=== PATIENT | female | born 1960 | race Caucasian/White ===

== ENCOUNTER 2017-03-01 15:39 | Emergency (ER) | payer OTHER, SELFPAY | END 2017-03-01 17:10 | disposition home or self-care (01) | PROVIDERS: Emergency Provider Emergency Medicine; Family Provider Nurse Practitioner Family; Visit Provider Emergency Medicine | DX: M54.31 Sciatica, right side (principal); E11.9 Type 2 diabetes mellitus without complications; F17.210 Nicotine dependence, cigarettes, uncomplicated; I25.10 Atherosclerotic heart disease of native coronary artery without angina pectoris; I25.2 Old myocardial infarction; I11.0 Hypertensive heart disease with heart failure; I50.9 Heart failure, unspecified; E78.5 Hyperlipidemia, unspecified; J45.909 Unspecified asthma, uncomplicated; Z85.3 Personal history of malignant neoplasm of breast; Z90.11 Acquired absence of right breast and nipple; Z79.84 Long term (current) use of oral hypoglycemic drugs; Z79.02 Long term (current) use of antithrombotics/antiplatelets; Z79.82 Long term (current) use of aspirin; Z79.899 Other long term (current) drug therapy; Z88.5 Allergy status to narcotic agent | CPT/HCPCS: 96372; 99283; J2405 ==

== ENCOUNTER → 2017-04-11 14:38 | Outpatient (CLI) | payer OTHER, SELFPAY ==
--- NOTE | 2017-04-11 14:42 | XR_ITS ---
XR hip RT 2-3V w/pelvis HISTORY: Extreme right hip pain ITS.REASON: right hip pain ORDERING PHYSICIAN: Estrada Woods MD PATIENT AGE: 56 years COMPARISON: To 117 FINDINGS: No fracture or dislocation. There are mild osteoarthritic changes of the right hip with osteophyte formation along the acetabular region. No lytic or blastic change. No significant change from the previous exam. IMPRESSION: Osteoarthritis, no significant change
== END ==
PROVIDERS: PCP Physician Assistant; Visit Provider Orthopaedic Surgery
DX: M25.551 Pain in right hip (principal)
CPT/HCPCS: 73502

== ENCOUNTER 2017-04-21 14:32 | Emergency (ER) | payer OTHER, SELFPAY ==
[2017-04-21 14:33] VITALS: BP 142/90; PULSE 100; RESP 20; TEMP 36.6; O2SAT 90; BMI 33.9
--- NOTE | 2017-04-21 14:51 | XR_ITS ---
XR chest 2V Ordering Physician: Justin Flores MD Patient Age: 56 years: Female HISTORY: ITS.REASON: cough; SOA Cough short of breath smoker right mastectomy TECHNIQUE: PA and lateral chest COMPARISON :PA and lateral chest 03/15/2015 FINDINGS Lungs clear with nothing definitely acute. The more lucent right chest from right mastectomy noted with postsurgical changes at right axillary region associated. Lateral view shows mild hyperexpansion is slight flattening of the diaphragm. Minor chronic changes noted. No active disease. Heart, marion and mediastinal structures satisfactory. No pleural effusion. Chest wall and T-spine unremarkable. IMPRESSION: Stable chest nothing definitely acute
[2017-04-21 14:57] VITALS: PULSE 85
[2017-04-21 15:11] LABS: Basophils % 0.4 % (0.1-2.0); Eosinophils # 0.1 K/mm3 (0.0-0.4); Eosinophils % 0.7 % (0.1-12.0); Hematocrit 49.6 % (37.0-47.0); Hemoglobin 15.7 g/dL (12.2-16.2); Lymphocytes # 1.9 K/mm3 (0.7-4.5); Lymphocytes % 15.9 K/mm3 (10-50); Mean Corpuscular HGB Conc 31.6 g/dL (31.8-35.4); Mean Corpuscular Hemoglobin 28.1 pg (27.0-31.2); Monocytes # 0.6 K/mm3 (0.1-1.0); Monocytes % 5.2 % (1.7-9.3); Neutrophils # 9.3 K/mm3 (1.8-7.8); Neutrophils % 77.9 % (37.0-80.0); Platelet Count 315 K/mm3 (142-424); Red Blood Count 5.58 M/mm3 (4.20-5.40); Red Cell Distribution Width 14.5 % (11.5-17.5)
[2017-04-21 15:24] LABS: Alanine Aminotransferase 23 U/L (12-78); Albumin Level 3.3 gm/dL (3.4-5.0); Albumin/Globulin Ratio 0.8 (1.1-1.8); Alkaline Phosphatase 143 U/L (46-116); Anion Gap 11.6 mEq/L (5-15); Aspartate Amino Transferase 9 U/L (15-37); Bilirubin,Total 0.6 mg/dL (0.2-1.0); Blood Urea Nitrogen 22 mg/dL (7-18); Calcium 8.8 mg/dL (8.5-10.1); Carbon Dioxide 29 mmol/L (21.0-32.0); Chloride 98 mmol/L (98-107); Creatinine Clearance Estimated 71 mL/min (0-300); Creatinine,Serum 1.29 mg/dL (0.55-1.02); Estimated Glomerular Filt Rate 42 ml/min (>60); GFR (African American) 51 ML/MIN (>60); Globulin 4.2 gm/dl (1.3-3.2); Potassium 3.6 mmoL/L (3.5-5.1); Sodium 135 mmol/L (136-145); Total Protein,Serum 7.5 gm/dL (6.4-8.2)
[2017-04-21 15:39] LABS: Lactic Acid 2.6 mmol/L (0.4-2.0)
[2017-04-21 15:40] LABS: Glucose 441 mg/dL (74-106)
[2017-04-21 15:54] LABS: Reflex Lactic Add Lactic Reflex
--- NOTE | 2017-04-21 16:43 | HMH.EDSOB ---
ED Disposition Clinical Impression: Acute exacerbation of chronic obstructive airways disease, Renal insufficiency Diabetes mellitus Qualifiers: Diabetes mellitus type: type 2 Diabetes mellitus complication status: with unspecified complications Diabetes mellitus senior care insulin use: unspecified senior care insulin use status Qualified Code(s): E11.8 - Type 2 diabetes mellitus with unspecified complications Disposition: Home, Self-Care Condition on Discharge: Good Instructions: DI for Chronic Obstructive Pulmonary Disease Additional Instructions: call pcp in am about glucose Prescriptions: cephALEXin [Keflex 500mg Cap] 500 mg PO Q6H #30 cap Referrals: Shanel Odonnell PA [Primary Care Provider] - - Critical Care Critical Care Time: No Attestation: On 04/21/17, the high probability of a clinically significant, sudden or life threatening deterioration of the following system(s) required my full and direct attention, intervention and personal management. The time I documented below is in addition to time spent performing reported procedures but includes the following listed in this critical care notation. Medical Decision Making - Medical Records Medical records reviewed: Yes: I reviewed the patient's medical records. Vital Signs: 04/21/17 14:33 04/21/17 14:57 Temperature 97.9 F Temperature Source Oral Pulse Rate 85 Pulse Rate [Right Brachial] 100 H Respiratory Rate 20 Blood Pressure [Right Arm] 142/90 Blood Pressure Mean [Right Arm] 107 Blood Pressure Position [Right Arm] Sitting 02 Sat by Pulse Oximetry 90 L Oxygen Delivery Method Room Air - Lab Data Lab results reviewed: Yes: I reviewed the patient's lab results. Lab Results 04/21/17 14:55: WBC 12.0 H, RBC 5.58 H, Hgb 15.7, Hct 49.6 H, MCV 89.0, MCH 28.1, MCHC 31.6 L, RDW 14.5, Plt Count 315, MPV 8.0, Neut % (Auto) 77.9, Lymph % (Auto) 15.9, [place] % (Auto) 5.2, Eos % (Auto) 0.7, Baso % (Auto) 0.4, Neut # (Auto) 9.3 H, Lymph # (Auto) 1.9, [place] # (Auto) 0.6, Eos # (Auto) 0.1, Baso # (Auto) 0.0 04/21/17 14:55: Sodium 135 L, Potassium 3.6, Chloride 98, Carbon Dioxide 29, Anion Gap 11.6, BUN 22 H, Creatinine 1.29 H, Estimated Creat Clear 71, Estimated GFR 42 L, Est GFR ( Amer) 51 L, Glucose 441 H*, Calcium 8.8, Total Bilirubin 0.6, AST 9 L, ALT 23, Alkaline Phosphatase 143 H, Total Protein 7.5, Albumin 3.3 L, Globulin 4.2 H, Albumin/Globulin Ratio 0.8 L 04/21/17 14:55: Lactic Acid 2.6 H 04/21/17 14:55: Influenza Type A Ag Negative, Influenza Type B Ag Negative 04/21/17 14:55: Troponin I < 0.02 04/21/17 16:15: Lactic Acid Fup @ 4Hr 1.9 Result diagrams: 04/21/17 14:55 04/21/17 14:55 Orders (Tests/Meds): ED MEDICATIONS Discontinued Medications Generic Name Dose Route Start Last Admin Trade Name Freq PRN Reason Stop Dose Admin Albuterol/Ipratropium 3 ml 04/21/17 14:51 04/21/17 14:55 Duoneb 3ml Neb IH 04/21/17 14:52 3 ml ONCE ONE Administration Ceftriaxone Sodium 1 gm/ 50 mls @ 100 mls/hr 04/21/17 16:45 04/21/17 16:52 Sodium Chloride IV 04/21/17 17:14 100 mls/hr ONCE ONE Administration Methylprednisolone Sodium Succinate 125 mg 04/21/17 16:45 04/21/17 16:51 Solu-Medrol 125mg/2ml Vial IV 04/21/17 16:46 125 mg ONCE ONE Administration ORDERS Category Date Time Status Blood Culture Stat Micro 04/21/17 14:55 Received Sputum Culture & Gram Stain Stat Micro 04/21/17 15:00 Results - Radiology Data #1 Image(s): Chest Image Reviewed: Yes I reviewed the patient's radiology image Preliminary Findings: Normal/NAD - Gianfranco Inquiry Pt receiving controlled substance: No Resp/SOB HPI - General Chief Complaint: Shortness of Breath/Dyspnea Stated Complaint: soa weak Time Seen by Provider: 04/21/17 16:43 Mode of Arrival: Ambulatory Source of Information: Patient, Medical Record Limitations: No Limitations Description of Symptoms (Recalled from ER Triage Doc. by RN): Pt leanna
[2017-04-21 17:10] LABS: Troponin I < 0.02 ng/ml (0.00-0.06)
[2017-04-21 17:33] VITALS: BP 148/106; PULSE 127; O2SAT 93
[2017-04-21 18:06] VITALS: BP 000/00; PULSE 154; RESP 42; TEMP 37.2; O2SAT 92
== END 2017-04-21 18:21 | disposition home or self-care (01) ==
PROVIDERS: Emergency Provider Emergency Medicine; Family Provider Family Medicine; PCP Physician Assistant
DX: J44.1 Chronic obstructive pulmonary disease with (acute) exacerbation (principal); E11.8 Type 2 diabetes mellitus with unspecified complications; N28.9 Disorder of kidney and ureter, unspecified; I10 Essential (primary) hypertension; F17.210 Nicotine dependence, cigarettes, uncomplicated; K21.9 Gastro-esophageal reflux disease without esophagitis; Z88.6 Allergy status to analgesic agent; Z79.84 Long term (current) use of oral hypoglycemic drugs
CPT/HCPCS: 36415; 71046; 80053; 83605; 84484; 85025; 87040; 87070; 87077; 87184; 87186; 87205; 87275; 87276; 96365; 96375; 99284

== ENCOUNTER → 2017-05-08 14:35 | Outpatient (REF) | payer OTHER, SELFPAY ==
[2017-05-08 19:09] LABS: Anion Gap 10.4 mEq/L (5-15); Blood Urea Nitrogen 17 mg/dL (7-18); Carbon Dioxide 32 mmol/L (21.0-32.0); Chloride 101 mmol/L (98-107); Creatinine,Serum 1.22 mg/dL (0.55-1.02); Estimated Glomerular Filt Rate 45 ml/min (>60); GFR (African American) 55 ML/MIN (>60); Glucose 272 mg/dL (74-106); Potassium 4.4 mmoL/L (3.5-5.1); Sodium 139 mmol/L (136-145)
[2017-05-08 19:14] LABS: Hemoglobin A1C 11.4 % (0.0-7.0)
== END ==
LOC: LAB 14:35
PROVIDERS: Visit Provider Emergency Medicine
DX: E11.9 Type 2 diabetes mellitus without complications (principal)
CPT/HCPCS: 80048; 83036

== ENCOUNTER 2017-05-31 21:48 | Inpatient (IN) | payer OTHER, SELFPAY ==
[2017-05-31 21:53] VITALS: BP 137/82; PULSE 136; RESP 22; TEMP 36.7; O2SAT 93; BMI 33.9
--- NOTE | 2017-05-31 22:02 | XR_ITS ---
XR chest 2V COMPARISON: PA and lateral chest 04/21/2017 HISTORY: Shortness of breath TECHNIQUE: PA and lateral chest FINDINGS: The lung henley are fairly well-expanded. There is diffuse vascular congestion with prominence of the upper lobe vessels. There is been interval increase in size of the cardiac silhouette from the film in April. There is no definite infiltrate and is no pleural fluid. IMPRESSION: Mild generalized cardio megaly with prominent vascular congestion and consistent with congestive heart failure
--- NOTE | 2017-05-31 22:07 | HMH.EDGENADL ---
ED Disposition Clinical Impression: Acute exacerbation of chronic obstructive airways disease Disposition: Admitted as Observation Condition on Discharge: Fair - Critical Care Critical Care Time: Yes Attestation: On , the high probability of a clinically significant, sudden or life threatening deterioration of the following system(s) required my full and direct attention, intervention and personal management. The time I documented below is in addition to time spent performing reported procedures but includes the following listed in this critical care notation. Total Critical Care Time: 40 Vital system(s) involved:: Circulatory Failure My critical care processes included: Assessment & monitoring of V/S, Initial and Re-exams, Data Review/Interpretation, Coordinating Care, Medication Orders and management, Documentation Medical Decision Making - Gianfranco Inquiry Pt receiving controlled substance: No Vital Signs: 05/31/17 21:53 05/31/17 22:19 05/31/17 23:30 Temperature 98.1 F Temperature Source Oral Pulse Rate Pulse Rate [Right Radial] 136 H 120 H 122 H Respiratory Rate 22 Blood Pressure Blood Pressure [Right Arm] 137/82 131/78 163/106 Blood Pressure Mean [Right Arm] 100 95 125 Blood Pressure Source [Right Arm] Automatic Cuff Automatic Cuff Blood Pressure Position Blood Pressure Position [Right Arm] Supine Supine 02 Sat by Pulse Oximetry 93 L 96 94 L Oxygen Delivery Method Room Air 06/01/17 00:00 06/01/17 00:10 06/01/17 00:28 Temperature 98.1 F Temperature Source Oral Pulse Rate 116 H Pulse Rate [Right Radial] 123 H 121 H Respiratory Rate 22 Blood Pressure 122/91 Blood Pressure [Right Arm] 170/125 129/67 Blood Pressure Mean [Right Arm] 140 87 Blood Pressure Source [Right Arm] Automatic Cuff Automatic Cuff Blood Pressure Position Sitting Blood Pressure Position [Right Arm] Supine Sitting 02 Sat by Pulse Oximetry 96 98 Oxygen Delivery Method Room Air Room Air - Lab Data Lab Results 05/31/17 22:10: B-Natriuretic Peptide 250 H 05/31/17 22:20: WBC 13.3 H, RBC 5.00, Hgb 14.1, Hct 44.2, MCV 88.4, MCH 28.3, MCHC 32.0, RDW 15.1, Plt Count 314, MPV 7.5, Neut % (Auto) 75.0, Lymph % (Auto) 18.6, [place] % (Auto) 5.0, Eos % (Auto) 1.0, Baso % (Auto) 0.5, Neut # (Auto) 10.0 H, Lymph # (Auto) 2.5, [place] # (Auto) 0.7, Eos # (Auto) 0.1, Baso # (Auto) 0.1 05/31/17 22:20: Sodium 138, Potassium 3.6, Chloride 97 L, Carbon Dioxide 30, Anion Gap 14.6, BUN 16, Creatinine 1.32 H, Estimated Creat Clear 70, Estimated GFR 41 L, Est GFR ( Amer) 50 L, Glucose 231 H, Calcium 8.9, Total Bilirubin 0.4, AST 12 L, ALT 27, Alkaline Phosphatase 133 H, Total Creatine Kinase 118, CK-MB (CK-2) 2.0, CK-MB (CK-2) Rel Index 1.7, Troponin I < 0.02, Total Protein 7.6, Albumin 3.2 L, Globulin 4.4 H, Albumin/Globulin Ratio 0.7 L 05/31/17 22:20: Lactic Acid 2.5 H Result diagrams: 05/31/17 22:20 05/31/17 22:20 Orders (Tests/Meds): ED MEDICATIONS Generic Name Dose Route Start Last Admin Trade Name Freq PRN Reason Stop Dose Admin Acetaminophen 650 mg 06/01/17 00:48 06/01/17 01:37 Acetaminophen 325mg Tab PO 07/01/17 00:47 650 mg Q4HP PRN Administration As Needed for Fever or Pain Albuterol Sulfate puffs 06/01/17 01:00 Proventil-Hfa 90mcg/Puff Inhaler 07/01/17 00:59 Q6H [facility] Albuterol/Ipratropium 3 ml 06/01/17 06:00 Duoneb 3ml Neb 07/01/17 05:59 QIDRT [facility] Amlodipine Besylate 10 mg 06/01/17 01:00 Norvasc 10mg Tablet PO 07/01/17 00:59 QDAY [facility] Aspirin 81 mg 06/01/17 01:00 Aspirin 81mg Enteric Coated Tablet PO 07/01/17 00:59 QDAY [facility] Clopidogrel Bisulfate 75 mg 06/01/17 01:00 Plavix 75mg Tablet PO 07/01/17 00:59 ONCE [facility] Cyclobenzaprine HCl 10 mg 06/01/17 01:00 06/01/17 01:37 Flexeril 10mg Tablet PO 07/01/17 00:59 10 mg Q8H ANCA Administration Furosemide 40 mg 06/01/17 01:00 06/01/17 01:37
[2017-05-31 22:19] VITALS: BP 131/78; PULSE 120; O2SAT 96
[2017-05-31 22:35] LABS: Basophils # 0.1 K/mm3 (0-0.2); Basophils % 0.5 % (0.1-2.0); Eosinophils # 0.1 K/mm3 (0.0-0.4); Hematocrit 44.2 % (37.0-47.0); Hemoglobin 14.1 g/dL (12.2-16.2); Lymphocytes # 2.5 K/mm3 (0.7-4.5); Lymphocytes % 18.6 K/mm3 (10-50); Mean Corpuscular Hemoglobin 28.3 pg (27.0-31.2); Mean Corpuscular Volume 88.4 fl (81-99); Mean Platelet Volume 7.5 fl (7.4-10.4); Monocytes # 0.7 K/mm3 (0.1-1.0); Platelet Count 314 K/mm3 (142-424); Red Cell Distribution Width 15.1 % (11.5-17.5); White Blood Count 13.3 K/mm3 (4.8-10.8)
[2017-05-31 22:51] LABS: Lactic Acid 2.5 mmol/L (0.4-2.0)
[2017-05-31 23:05] LABS: Alanine Aminotransferase 27 U/L (12-78); Albumin Level 3.2 gm/dL (3.4-5.0); Albumin/Globulin Ratio 0.7 (1.1-1.8); Alkaline Phosphatase 133 U/L (46-116); Anion Gap 14.6 mEq/L (5-15); Aspartate Amino Transferase 12 U/L (15-37); Bilirubin,Total 0.4 mg/dL (0.2-1.0); Blood Urea Nitrogen 16 mg/dL (7-18); CKMB Relative Index 1.7 U/L (0-4.0); Calcium 8.9 mg/dL (8.5-10.1); Carbon Dioxide 30 mmol/L (21.0-32.0); Chloride 97 mmol/L (98-107); Creatine Kinase 118 U/L (26-192); Creatinine Clearance Estimated 70 mL/min (0-300); Creatinine,Serum 1.32 mg/dL (0.55-1.02); Estimated Glomerular Filt Rate 41 ml/min (>60); GFR (African American) 50 ML/MIN (>60); Globulin 4.4 gm/dl (1.3-3.2); Glucose 231 mg/dL (74-106); Potassium 3.6 mmoL/L (3.5-5.1); Sodium 138 mmol/L (136-145); Total Protein,Serum 7.6 gm/dL (6.4-8.2); Troponin I < 0.02 ng/ml (0.00-0.06)
[2017-05-31 23:30] VITALS: BP 163/106; PULSE 122; O2SAT 94
[2017-06-01] VITALS (27 sets, daily range): BP systolic 107–170; BP diastolic 49–125; PULSE 72–128; RESP 15–23; TEMP 36.4–36.9; O2SAT 88–100; BMI 36.3
--- NOTE | 2017-06-01 01:38 | PC.NURSE ---
PT STATED SHE HAD ALREADY TAKEN HER PLAVIX TODAY BUT HAD NOT TAKEN HER SECOND DOSE OF LASIX.
[2017-06-01 02:30] LABS: Reflex Lactic Add Lactic Reflex
[2017-06-01 03:23] LABS: Lactic Acid Follow Up (RFLX 1) 2.7 (0.4-2.0)
--- NOTE | 2017-06-01 03:59 | PC.NURSE ---
PT IS A&OX3. SHE HAS A RASH ON HER LEFT BREAST. RIGHT LIMB ALERT. SHE REPORTED THAT SHE IS SUPPOSED TO WEAR A CPAP AT NIGHT BUT HAS NOT BEEN WEARING IT AT HOME FOR A COUPLE WEEKS DUE TO BEING SICK. HER O2 DROPPED TO 86% RA WHILE SLEEPING AND SHE WAS PLACED ON 2LPM N/C. SHE REPORTS A PRODUCTIVE COUGH WITH SPUTUM THAT VARIES IN COLOR BETWEEN YELLOW, BROWN, AND CLEAR. NO SPUTUM PRODUCTION NOTED SINCE ADMISSION TO THE FLOOR. RUE WITH 2+ EDEMA. PT REPORTS A HISTORY OF LYMPHEDEMA. SHE HAS BEEN AMBULATING TO THE BATHROOM WITH ASSIST X1. REPORTS THAT SHE USES A CANE OR WALKER TO AMBULATE AT HOME. AFIB ON TELEMETRY. SHE HAS RECEIVED PRN TYLENOL FOR A HEADACHE.
[2017-06-01 04:55] LABS: Reflex Lactic (2 hrs) Add Lactic Reflex
--- NOTE | 2017-06-01 05:43 | PC.NURSE ---
PT REFUSED 2ND LACTIC DRAW. EDUCATED ON IMPORTANCE. CONTINUED TO REFUSE.
[2017-06-01 06:29] LABS: POC Glucose,Bedside 428 mg/dL (70-110)
--- NOTE | 2017-06-01 07:36 | PC.NURSE ---
REPORT GIVEN TO Himanshu GARG W/C
[2017-06-01 12:17] LABS: POC Glucose,Bedside 407 mg/dL (70-110)
--- NOTE | 2017-06-01 13:43 | HMH.PHAVTE ---
[facility] Pharmacy VTE Monitoring - Patient Demographics Admission date: 06/01/17 Report Date: 06/01/17 Time: 13:43 Allergies/Adverse Reactions: Patient Allergies oxycodone [From PERCOCET] Allergy (Unknown, Verified 05/20/17 13:30) Height: 1.68 m Weight: 102.172 kg Patient Problems: Current Active Problems Acute exacerbation of chronic obstructive airways disease (Acute) - VTE Risk Labs: VTE Related Lab Results Hgb 14.1 g/dL (12.2-16.2) 05/31/17 22:20 Hct 44.2 % (37.0-47.0) 05/31/17 22:20 Plt Count 314 K/mm3 (142-424) 05/31/17 22:20 BUN 16 mg/dL (7-18) 05/31/17 22:20 Creatinine 1.32 mg/dL (0.55-1.02) H 05/31/17 22:20 Estimated Creat Clear 70 mL/min (0-300) 05/31/17 22:20 Was VTE Risk Assessment Performed: Yes VTE Score: 9 VTE Risk Level: Moderate Risk - Prophylaxis Types of VTE Prophylaxis: TEDS Knee High Location of Applied Device: Bilateral Lower Extremeties - VTE Diagnosis Confirmed Comment: YANG DEVINE
--- NOTE | 2017-06-01 14:52 | HMH.HP ---
*Admission Date: 06/01/17 *Chief complaint: sob *History of present illness: 56-year-old female presented to the ER with a 2 day history of shortness of breath, cough productive with yellow sputum, head congestion, nausea and vomiting. Patient reports history of COPD and uses nebulizer treatments at home. Patient reports that she has had some chest pain that increases with coughing. She says she has a history of coronary artery disease and stents. She arrived in the ER and rapid atrial fib atrial fibrillation. She does not recall being in atrial fibrillation in the past, but previous EKGs in December 2014 showed atrial fibrillation. Admitted with IV antibiotics and cardiac workup. [facility] History I have reviewed the patient's past medical history: Yes Medical History: Reports:: Asthma, Cancer (breast), Congestive Heart Failure, Chronic Obstructive Pulmonary Disease (COPD), Diabetes Mellitus Type 1, Diabetes Mellitus Type 2, Gastroesophageal Reflux Disease(GERD), Hypertension, Internal Pacemaker, Seizures Denies:: MRSA Other Medical History: Reports: Blood Transfusion Reaction, Chemotherapy, Radiation Therapy Laterality Cases: Right: Breast Biopsy, Mastectomy, Bilateral: Tonsillectomy Other Surgeries: Yes: Coronary Stent, Pacemaker, Other Amputation: No Fractures: No - *Social History Educational Level: Attended College Smoking Status: Current every day smoker Tobacco Type: cigarettes # Packs/Day (cigarettes): 1 Alcohol Intake: never Substance Use Type: denies use Occupational Status: disabled Housing: house Household Members: family, children - Psychiatric History Expresses thoughts of harming self/others: None Suicide Plan Description: No Plan *Family Hx:: Hypertension, Cancer Review of Systems - Review of Systems Review of systems:: pertinent systems reviewed and negative unless documented below - Constitutional Reports body ache(s), Reports chills, Reports fever(s) - Eyes Denies change in vision - ENT Denies change in voice - *Cardiovascular Reports chest pain at rest, Reports chest pain with activity, Reports shortness of breath - *Respiratory Reports change in phlegm color, Reports chest congestion, Reports shortness of breath, Reports shortness of breath with activity - *Gastrointestinal Denies bloating - *Genitourinary Denies abnormal vaginal bleeding - *Musculoskeletal Denies decreased muscle mass - Integumentary/Breasts Denies change in hair - *Neurologic Denies abnormal movements - Psychiatric Denies mood swings - Endocrine Denies heat intolerance - Hematologic/Lymphatic Denies enlarged lymph nodes - Allergic/Immunologic Denies lip swelling Meds Home Medications Medication Instructions Recorded Confirmed Type albuterol sulfate HFA 90 1 puff INHALATION Q6H 03/27/17 06/01/17 History mcg/actuation aerosol inhaler amlodipine 10 mg tablet 10 mg PO DAILY 03/27/17 06/01/17 History aspirin 81 mg tablet,delayed 81 mg PO QDAY 03/27/17 06/01/17 History release atorvastatin 80 mg tablet 80 mg PO DAILY 03/27/17 06/01/17 History clopidogrel 75 mg tablet 75 mg PO DAILY 03/27/17 06/01/17 History furosemide 40 mg tablet 40 mg PO BID 03/27/17 06/01/17 History isosorbide mononitrate ER 30 mg 30 mg PO DAILY 03/27/17 06/01/17 History tablet,extended release 24 hr metoprolol tartrate 100 mg tablet 100 mg PO BID 03/27/17 06/01/17 History ipratropium-albuterol 0.5 mg-3 2.5 mg INHALATION 5XDAY 30 Days 05/20/17 06/01/17 History mg(2.5 mg base)/3 mL nebulization #360 soln Cyclobenzaprine HCl 10 mg PO Q8H 06/01/17 06/01/17 History [Cyclobenzaprine 10mg Tab] Gabapentin [Neurontin 800mg Tab] 800 mg PO TID 06/01/17 06/01/17 History Metformin HCl [Glucophage] 500 mg PO BID 06/01/17 06/01/17 History Pantoprazole Sodium [Protonix 40mg 40 mg PO DAILY 06/01/17 06/01/17 History tablet] Allergies Allergy/AdvReac Type Severity Reaction Status Date / Time oxycodone [From PERC
--- NOTE | 2017-06-01 15:39 | PC.NURSE ---
SPOKE WITH NATASHA TORRES ABOUT PATIENT HEART RATE STILL BOUNCING AROUND, STAYING HIGH MORE THAN NOT AT ABOUT 120S-130S. CARDIZEM IS CURRENTLY AT 20 AN HOUR. BP BEEN STABLE. SHE STATED TO GO AHEAD AND CONSULT DR VOGT OVER THE PHONE. ATTEMPTED TO PAGE SIN AT THIS TIME
[2017-06-01 17:06] LABS: POC Glucose,Bedside 422 mg/dL (70-110)
--- NOTE | 2017-06-01 19:56 | PC.NURSE ---
PATIENT HAS DONE WELL THIS SHIFT, AFTER BEING GIVEN BISPROLOL AND CONTINUED ON CARDIZEM HEART RATE DROPPED AND IS STAYING ABOUT 70-90S. NO COMPLAINTS. WEARING O2 WITH SLEEPING AND RESTING. WALKED IN ROOM WITH MINIMUM ASSISTANCE. VITAL SIGNS STABLE.
[2017-06-01 20:07] LABS: POC Glucose,Bedside 419 mg/dL (70-110)
[2017-06-02] VITALS (28 sets, daily range): BP systolic 89–146; BP diastolic 58–100; PULSE 72–144; RESP 18–24; TEMP 36.4–37; O2SAT 88–98
--- NOTE | 2017-06-02 03:10 | PC.NURSE ---
PT IS A&OX3. SHE HAD SOME ANXIETY AT THE BEGINNING OF THE SHIFT. AFIB ON TELEMETRY. SHE DENIES CP. DENIES SOA. SHE HAS SINCE RESTED T/O THE NIGHT.
[2017-06-02 05:18] LABS: Basophils % 0.1 % (0.1-2.0); Eosinophils # 0.1 K/mm3 (0.0-0.4); Eosinophils % 0.4 % (0.1-12.0); Hematocrit 41.5 % (37.0-47.0); Hemoglobin 13.3 g/dL (12.2-16.2); Lymphocytes # 1.1 K/mm3 (0.7-4.5); Lymphocytes % 7.3 K/mm3 (10-50); Mean Corpuscular Hemoglobin 28.2 pg (27.0-31.2); Mean Corpuscular Volume 88.3 fl (81-99); Mean Platelet Volume 7.5 fl (7.4-10.4); Monocytes # 0.4 K/mm3 (0.1-1.0); Monocytes % 2.8 % (1.7-9.3); Neutrophils # 13.9 K/mm3 (1.8-7.8); Neutrophils % 89.5 % (37.0-80.0); Platelet Count 302 K/mm3 (142-424); Red Cell Distribution Width 15.2 % (11.5-17.5); White Blood Count 15.5 K/mm3 (4.8-10.8)
[2017-06-02 05:20] LABS: MANUAL DIFFERENTIAL MANUAL DIFFERENTIAL (MANUAL DIFF)
[2017-06-02 05:44] LABS: Alanine Aminotransferase 59 U/L (12-78); Albumin/Globulin Ratio 0.9 (1.1-1.8); Alkaline Phosphatase 144 U/L (46-116); Anion Gap 14.9 mEq/L (5-15); Aspartate Amino Transferase 30 U/L (15-37); Bilirubin,Total 0.5 mg/dL (0.2-1.0); Blood Urea Nitrogen 30 mg/dL (7-18); Calcium 8.6 mg/dL (8.5-10.1); Carbon Dioxide 27 mmol/L (21.0-32.0); Chloride 100 mmol/L (98-107); Creatinine Clearance Estimated 91 mL/min (0-300); Creatinine,Serum 1.11 mg/dL (0.55-1.02); Estimated Glomerular Filt Rate 50 ml/min (>60); GFR (African American) 61 ML/MIN (>60); Globulin 3.5 gm/dl (1.3-3.2); Glucose 332 mg/dL (74-106); Potassium 3.9 mmoL/L (3.5-5.1); Sodium 138 mmol/L (136-145); Total Protein,Serum 6.5 gm/dL (6.4-8.2)
[2017-06-02 06:21] LABS: POC Glucose,Bedside 356 mg/dL (70-110)
[2017-06-02 06:43] LABS: Lymphocytes % 7 % (10-50); Neutrophils % 85 % (42-76); Total Cells Counted 100
[2017-06-02 06:44] LABS: Hypochromasia 1+; Platelet Estimate Normal; Polychromasia 1+; Rouleaux 1+
--- NOTE | 2017-06-02 07:20 | PC.NURSE ---
PT'S HEART RATE INCREASED AFTER WAKING UP AND RECEIVING NEBULIZER. CARDIZEM DOSAGE INCREASED TO ATTEMPT RATE CONTROL.
--- NOTE | 2017-06-02 11:21 | P.PN_ITS ---
Internal Medicine - PN: Subj *Date: 06/02/17 *Time: 11:19 Exam Vital signs and Labs for Last 24 Hours: Temp Pulse Resp BP Pulse Ox 97.8 F 94 H 20 140/100 98 06/02/17 07:56 06/02/17 10:25 06/02/17 07:56 06/02/17 07:56 06/02/17 08:50 Laboratory Results - last 24 hr 06/01/17 12:05: POC Glucose 407 06/01/17 16:56: POC Glucose 422 06/01/17 19:59: POC Glucose 419 06/02/17 05:00: WBC 15.5 H, RBC 4.70, Hgb 13.3, Hct 41.5, MCV 88.3, MCH 28.2, MCHC 32.0, RDW 15.2, Plt Count 302, MPV 7.5, Neut % (Auto) 89.5 H, Lymph % (Auto ) 7.3 L, [place] % (Auto) 2.8, Eos % (Auto) 0.4, Baso % (Auto) 0.1, Neut # (Auto) 13.9 H, Lymph # (Auto) 1.1, [place] # (Auto) 0.4, Eos # (Auto) 0.1, Baso # (Auto) 0.0, Total Counted 100, Neutrophils % (Manual) 85 H, Band Neutrophils % 8.0, Lymphocytes % (Manual) 7 L, Platelet Estimate Normal, Polychromasia 1+, Hypochromasia 1+, Rouleaux 1+ 06/02/17 05:00: Sodium 138, Potassium 3.9, Chloride 100, Carbon Dioxide 27, Anion Gap 14.9, BUN 30 H D, Creatinine 1.11 H, Estimated Creat Clear 91, Estimated GFR 50 L, Est GFR ( Amer) 61 D, Glucose 332 H, Calcium 8.6, Total Bilirubin 0.5, AST 30 D, ALT 59 D, Alkaline Phosphatase 144 H, Total Protein 6.5, Albumin 3.0 L, Globulin 3.5 H, Albumin/Globulin Ratio 0.9 L 06/02/17 06:05: POC Glucose 356 I & O for Last 24 hours: Intake & Output 05/30/17 05/31/17 06/01/17 06/02/17 11:59 11:59 11:59 11:59 Intake Total 89 / 89 601 / 601 Output Total 600 / 600 240 / 240 Balance -511 / -511 361 / 361 Weight 225 lb 4 oz 230 lb 1.011 oz - Constitutional no acute distress - *Routine HEENT Exam Head: Present: normocephalic Eye: Present: PERRL ENT: Present: mucous membranes moist - *Routine Neck Exam Present: supple, full ROM - *Routine Respiratory Exam Present: wheezes, diminished air movement - *Routine Cardiovascular Exam Present: irregular rhythm Comments: rate of 90 - *Routine Abdominal Exam Present: soft, normoactive bowel sounds - *Routine Extremities Exam Present: full ROM - Routine Back/Spine/Pelvis Exam Back/Spine: Present: full ROM - *Routine Skin Exam Present: intact - *Routine Neurological Exam Present: alert, oriented X3, CN II-XII intact - Routine Psychiatric Exam Present: normal affect Assessment and Plan - Assessment and plan all Dx Assessment and Plan for all problems:: jocelyn herrera to follow. sarah to see pt lisa
[2017-06-02 11:43] LABS: POC Glucose,Bedside 445 mg/dL (70-110)
--- NOTE | 2017-06-02 12:51 | PC.NURSE ---
LATE ENTRY: DURING MORNING ROUNDS AT 0732 SPOKE WITH MD MEDICAL SCIENTIFIC OFFICER ABOUT PATIENT HEART RATE STARTING TO INCREASE BACK UP IN TO THE 120-130S. MD STATED IT WAS OKAY TO GIVE A ONE TIME DOSE OF METOPROLOL 50MG AT THAT TIME. SINCE GIVING HAS BEEN SOME IMPROVEMENT IN HEART RATE 80S-100.
--- NOTE | 2017-06-02 18:03 | PC.NURSE ---
DR VOGT ROUNDED ON PATIENT AT 1435 FOR ORDERED CONSULT. AFTER ASSESSING PATIENT MD REQUESTED AN ORDER FOR AN ECHO BE PLACED, WELL TO START THE PATIENT ON METOPROLOL TARTRATE 100MG PO BID, AND XARELTO 20MG DAILY. PLACED ORDER IN FOR ECHO LIMITED IN ERROR AND STOPPED THIS AND CHANGED TO ECHO DOPPLER COMPLETE.
--- NOTE | 2017-06-02 18:19 | PC.NURSE ---
PATIENT HAS HAD A GOOD SHIFT. SHE HAS RESTED THROUGH OUT. FSBS REMAIN HIGH AT THIS TIME. PATIENT NOTED TO HAVE HIGH HEART RATE MOSTLY WITH EXERTION. SHE WAS NOTICED TO HAVE A CHANGE IN HEART RATE WITH THE METOPROLOL THIS MORNING AND THIS WAS PASSED ALONG TO DR. VOGT WHEN HE ROUNDED AND HE REORDERED HOME DOSE OF METOPROLOL AND STARTED PATIENT ON XARELTO WHILE HERE.
[2017-06-02 19:36] LABS: POC Glucose,Bedside 422 mg/dL (70-110)
[2017-06-02 20:17] LABS: POC Glucose,Bedside 452 mg/dL (70-110)
[2017-06-03] VITALS (24 sets, daily range): BP systolic 123–155; BP diastolic 53–92; PULSE 80–110; RESP 14–24; TEMP 36.3–37.2; O2SAT 90–95; BMI 36.9
--- NOTE | 2017-06-03 03:00 | PC.NURSE ---
PT IS A&OX3. SHE HAS REMAINED IN CONTROLLED AFIB T/O THE NIGHT, EXCEPT RIGHT AFTER SHE TRANSFERRED TO [facility] AND BACK TO HER BED. SHE REPORTS SOA WHILE AT REST. BILATERAL POSTERIOR WHEEZING. NICOTINE PATCH OF LEFT SHOULDER.
[2017-06-03 05:23] LABS: Basophils % 0.1 % (0.1-2.0); Eosinophils # 0.1 K/mm3 (0.0-0.4); Eosinophils % 0.4 % (0.1-12.0); Lymphocytes # 1.3 K/mm3 (0.7-4.5); Lymphocytes % 8.4 K/mm3 (10-50); Mean Corpuscular HGB Conc 30.9 g/dL (31.8-35.4); Mean Corpuscular Hemoglobin 27.8 pg (27.0-31.2); Mean Corpuscular Volume 89.8 fl (81-99); Mean Platelet Volume 7.3 fl (7.4-10.4); Monocytes # 0.4 K/mm3 (0.1-1.0); Monocytes % 2.5 % (1.7-9.3); Neutrophils # 13.3 K/mm3 (1.8-7.8); Neutrophils % 88.6 % (37.0-80.0); Platelet Count 311 K/mm3 (142-424); Red Blood Count 4.68 M/mm3 (4.20-5.40); Red Cell Distribution Width 15.2 % (11.5-17.5)
[2017-06-03 05:30] LABS: MANUAL DIFFERENTIAL MANUAL DIFFERENTIAL (MANUAL DIFF)
[2017-06-03 05:49] LABS: Alanine Aminotransferase 68 U/L (12-78); Albumin Level 2.8 gm/dL (3.4-5.0); Albumin/Globulin Ratio 0.7 (1.1-1.8); Alkaline Phosphatase 125 U/L (46-116); Bilirubin,Total 0.5 mg/dL (0.2-1.0); Blood Urea Nitrogen 40 mg/dL (7-18); Calcium 8.4 mg/dL (8.5-10.1); Carbon Dioxide 27 mmol/L (21.0-32.0); Chloride 101 mmol/L (98-107); Creatinine Clearance Estimated 77 mL/min (0-300); Creatinine,Serum 1.32 mg/dL (0.55-1.02); Estimated Glomerular Filt Rate 41 ml/min (>60); GFR (African American) 50 ML/MIN (>60); Globulin 3.8 gm/dl (1.3-3.2); Glucose 356 mg/dL (74-106); Total Protein,Serum 6.6 gm/dL (6.4-8.2)
[2017-06-03 06:00] LABS: Anion Gap 13.8 mEq/L (5-15); Aspartate Amino Transferase 25 U/L (15-37); Potassium 3.8 mmoL/L (3.5-5.1); Sodium 138 mmol/L (136-145)
[2017-06-03 06:01] LABS: Hypochromasia 1+; Lymphocytes % 8 % (10-50); Neutrophils % 88 % (42-76); Platelet Estimate Normal; Polychromasia 1+; Total Cells Counted 100
[2017-06-03 06:10] LABS: POC Glucose,Bedside 355 mg/dL (70-110)
--- NOTE | 2017-06-03 08:02 | PC.NURSE ---
Dr. Chen at bedside and informed of Mag level on 7. Dr. Mcbride sated Dr. Kebede to see pt and possibly stop Mag drip today. Will continue to monitor and update Dr. Kebede of mag level. All VSS. Call light within reach.
--- NOTE | 2017-06-03 08:46 | HMH.CNCARD ---
History of Present Illness Consult date: 06/02/17 Requesting physician: Justin Flores Consult reason: atrial fibrillation, congestive heart failure, shortness of breath Chief complaint: SOA Additional Medical History:: 1. HTN for 15-20 yrs A. echocardiogram, 12/2014, normal LV size and thickness with EF of 45-55 percent due to atrial fibrillation. LEFT atrial size was normal. Mild valvular heart disease. B. Echocardiogram 07/2016, mild left atrial enlargement at 4.6 cm with normal LV size. LVEF 50-55% with no regional wall motion abnormality. Grade 1 diastolic dysfunction noted. Mild MR and TR noted. 2. Diabetes, treated for 3 yrs A. CKD, stage 3-4 3. Right breast mastectomy for Cancer with chemo and radiation at , approx [id number]. A. right arm lymphedema 4. CAD A. NSTEMI, 12/2014 B. TIM X 2 to RCA, 12/2014. On DAPT since then. 5. Obesity 6. Tobacco use, started age 10, 0.5-1 ppd, continued A. Chronic obstructive pulmonary disease and asthma 7. Hyperlipidemia, on statin. 8. FH of cancer A. Father in his mid 30's with cancer, Mother in her 40's with bone cancer 9. History of atrial fibrillation. Patient has been in sinus rhythm at all visits since December 2014 A. CHADS-VASC score is at least 4, 01/2016, but will not start anticoagulation at this time due to DAPT and uncontrolled BP. 10. Obstructive sleep apnea, 09/2016, with recommendation for AutoPap trial. AHI index was 19.6 with a respiratory disturbance index of 29.2. 13 obstructive apneas and one central apnea noted along with 80 hypopneas. History of present illness: 56-year-old white female with known history of COPD, paroxysmal atrial fibrillation and coronary artery disease with coronary stenting in 2014 presented to the emergency department for recurrent shortness of breath. Patient relates a 1 month history of recurrent increasing episodes of shortness of breath for which she has been in the emergency department and her family doctor's office several times with only transient improvement. Patient shortness of breath was so bad that she quit smoking 4 days ago. She was seen in the emergency department with evidence of congestive heart failure on chest x-ray and elevated BNP and admitted for further evaluation. She was noted to be in atrial fib relation with a rapid ventricular response on admission and was started on IV Cardizem. Patient has had some improvement in her shortness of breath and heart rate control. Cardiology consulted for evaluation and recommendations. Patient was seen by Dr. Jennings yesterday. [facility] History Medical History: Reports:: Asthma, Cancer (breast), Congestive Heart Failure, Chronic Obstructive Pulmonary Disease (COPD), Diabetes Mellitus Type 1, Diabetes Mellitus Type 2, Gastroesophageal Reflux Disease(GERD), Hypertension, Seizures Denies:: Internal Pacemaker, MRSA Other Medical History: Reports: Blood Transfusion Reaction, Chemotherapy, Radiation Therapy Laterality Cases: Right: Breast Biopsy, Mastectomy, Bilateral: Tonsillectomy Other Surgeries: Yes: Coronary Stent, Pacemaker, Other Amputation: No Fractures: No - *Social History Educational Level: Attended College Smoking Status: Current every day smoker Tobacco Type: cigarettes # Packs/Day (cigarettes): 1 Alcohol Intake: never Substance Use Type: denies use Occupational Status: disabled Housing: house Household Members: family, children - Psychiatric History Expresses thoughts of harming self/others: None Suicide Plan Description: No Plan *Family Hx:: Hypertension, Cancer Meds Home Medications Medication Instructions Recorded Confirmed Type albuterol sulfate HFA 90 1 puff INHALATION Q6H 03/27/17 06/01/17 History mcg/actuation aerosol inhaler amlodipine 10 mg tablet 10 mg PO DAILY 03/27/17 06/01/17 History aspirin 81 mg tablet,delayed 81 mg PO QDAY 03/27/17 06/01/17 History release atorvastatin 80 mg tablet 80 mg PO DAILY 03/27/17 06/01/17 History clopidogrel
[2017-06-03 10:45] LABS: CKMB Relative Index 3.2 U/L (0-4.0); Creatine Kinase 65 U/L (26-192); Creatine Kinase MB 2.1 mg/ml (0.0-3.6); Troponin I < 0.02 ng/ml (0.00-0.06)
--- NOTE | 2017-06-03 12:48 | HMH.ACPN2 ---
Internal Medicine - PN: Subj *Date: 06/03/17 *Time: 12:48 Interval history: doing better Exam Vital signs and Labs for Last 24 Hours: Temp Pulse Resp BP Pulse Ox 98.0 F 80 24 137/77 94 L 06/03/17 11:43 06/03/17 12:00 06/03/17 11:43 06/03/17 11:43 06/03/17 11:43 Laboratory Results - last 24 hr 06/02/17 16:49: POC Glucose 422 06/02/17 19:52: POC Glucose 452 06/03/17 05:10: WBC 15.0 H, RBC 4.68, Hgb 13.0, Hct 42.0, MCV 89.8, MCH 27.8, MCHC 30.9 L, RDW 15.2, Plt Count 311, MPV 7.3 L, Neut % (Auto) 88.6 H, Lymph % (Auto) 8.4 L, [place] % (Auto) 2.5, Eos % (Auto) 0.4, Baso % (Auto) 0.1, Neut # (Auto) 13.3 H, Lymph # (Auto) 1.3, [place] # (Auto) 0.4, Eos # (Auto) 0.1, Baso # (Auto) 0.0, Total Counted 100, Neutrophils % (Manual) 88 H, Band Neutrophils % 4.0, Lymphocytes % (Manual) 8 L, Platelet Estimate Normal, Polychromasia 1+, Hypochromasia 1+ 06/03/17 05:10: Sodium 138, Potassium 3.8, Chloride 101, Carbon Dioxide 27, Anion Gap 13.8, BUN 40 H D, Creatinine 1.32 H, Estimated Creat Clear 77, Estimated GFR 41 L, Est GFR ( Amer) 50 L, Glucose 356 H, Calcium 8.4 L, Total Bilirubin 0.5, AST 25, ALT 68, Alkaline Phosphatase 125 H, Total Protein 6.6, Albumin 2.8 L, Globulin 3.8 H, Albumin/Globulin Ratio 0.7 L 06/03/17 05:57: POC Glucose 355 06/03/17 09:50: Total Creatine Kinase 65, CK-MB (CK-2) 2.1, CK-MB (CK-2) Rel Index 3.2, Troponin I < 0.02 I & O for Last 24 hours: Intake & Output 06/01/17 06/02/17 06/03/17 06/04/17 11:59 11:59 11:59 11:59 Intake Total 89 / 89 601 / 601 1876 / 1876 Output Total 600 / 600 240 / 240 1840 / 1840 Balance -511 / -511 361 / 361 36 / 36 Weight 225 lb 4 oz 230 lb 1.011 oz 230 lb 1.011 oz - Constitutional no acute distress - *Routine HEENT Exam Head: Present: normocephalic Eye: Present: EOMI, PERRL ENT: Present: mucous membranes dry - *Routine Neck Exam Present: supple - *Routine Respiratory Exam Absent: CTA bilaterally - *Routine Cardiovascular Exam Present: RRR, murmur, irregular rhythm - *Routine Extremities Exam Present: full ROM - *Routine Skin Exam Present: intact - *Routine Neurological Exam Present: alert, oriented X3, CN II-XII intact - Routine Psychiatric Exam Present: normal affect Assessment and Plan (1) Atrial fibrillation with rapid ventricular response Current visit: Yes Status: Acute Category: Medical Code(s): I48.91 - Unspecified atrial fibrillation (2) CHF (congestive heart failure), NYHA class IV Current visit: Yes Status: Acute Category: Medical Code(s): I50.9 - Heart failure, unspecified (3) Coronary artery disease Current visit: Yes Status: Acute Category: Medical Code(s): I25.10 - Atherosclerotic heart disease of [place] coronary artery without angina pectoris (4) Acute exacerbation of chronic obstructive airways disease Current visit: Yes Status: Acute Category: Medical Code(s): J44.1 - Chronic obstructive pulmonary disease with (acute) exacerbation (5) Diabetes mellitus Current visit: No Status: Acute Qualifiers: Diabetes mellitus type: type 2 Diabetes mellitus 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
--- NOTE | 2017-06-03 16:19 | CA_ITS ---
PROCEDURE: 2-D M-mode and color Doppler study INDICATIONS FOR THE TEST: Chest pain + COPD+ Heart Murmur Tobacco Smoking+ Palpitations Fatigue Syncope Edema Hypertension+Diabetes Mellitus+ Rheumatic Fever SOB+UGARTE Obesity+Hyperlipidemia Family History HD Additional History CAD,STENTS, CA, CHEMO, RADATION, MASTECTOMY PATIENT INFORMATION HEIGHT: 66 WEIGHT:230 GENDER: Female B/P:140/100 2-D/M-MODE INTERPRETATION: 2-D MEASUREMENTS OBSERVED VALUES IN CMS Right Ventricular Dimension (RVDd) Interventricular Septum (Thickness)(IVsd) Left Ventricular Internal Dimensions(LVIDd) Left Ventricular Posterior Wall (Thickness)(LVPWd) Aortic Root Aortic Cusp Separation Left Atrial Dimensions (LAD) 2D 1. Technically very difficult study because of the patient's factor and poor acoustic windows. The endocardial surfaces and valvular structures are poorly visualized. 2. Left atrium is moderately enlarged, left ventricle is mildly dilated, there is severely reduced left ventricular systolic function, visually estimated ejection fraction approximately 25-30%, left ventricle is globally hypokinetic, superimposed segmental wall motion abnormalities cannot be excluded. 3. The right ventricle is moderately enlarged, with moderate reduction in right ventricular systolic pressure. 4. The aortic valve is not well visualized. 5. The mitral and tricuspid valve leaflets are minimally thickened. 6. The pulmonic valve is poorly visualized 7. No significant pericardial effusion noted. DOPPLER INTERROGATION: Doppler interrogation of the aortic, mitral and tricuspid valvular presence of mild mitral and tricuspid regurgitation, tricuspid and jet velocity insufficient for calculation of the right ventricular systolic pressure. CONCLUSION: 1. Technically very difficult study because of the patient's factor and poor acoustic windows, endocardial surfaces as well as the valvular structures are poorly visualized. 2. Moderate biatrial enlargement, mildly dilated left ventricle, severely reduced left ventricular systolic function, visually estimated ejection fraction approximately 25-30%, left ventricle is globally hypokinetic, superimposed segmental wall motion abnormalities cannot be entirely excluded. 3. Moderately enlarged right ventricle with moderate reduction in right ventricular systolic function. 4. Mild mitral and tricuspid regurgitation 5. No significant pericardial effusion noted.
[2017-06-03 17:38] LABS: POC Glucose,Bedside 479 mg/dL (70-110)
--- NOTE | 2017-06-03 19:14 | PC.NURSE ---
report given to berat lentz
[2017-06-03 20:40] LABS: POC Glucose,Bedside 469 mg/dL (70-110)
[2017-06-04] VITALS (28 sets, daily range): BP systolic 108–164; BP diastolic 48–99; PULSE 70–123; RESP 16–23; TEMP 36.3–37.1; O2SAT 88–96
--- NOTE | 2017-06-04 02:12 | PC.NURSE ---
Controlled AFIB and cardiazem drip continue. Pt c/o right hip pain of which tylenol given per emar. Independent to bsc, rings appropiately. 023LNC is on and in place, pt given Nicotine patch per her request. Heart rate varies from 80's -110. No c/o chest pain or chest discomfort. Makes needs known, remained safe.
[2017-06-04 06:40] LABS: Basophils % 0.1 % (0.1-2.0); Eosinophils % 0.4 % (0.1-12.0); Hematocrit 40.4 % (37.0-47.0); Hemoglobin 12.6 g/dL (12.2-16.2); Lymphocytes # 0.9 K/mm3 (0.7-4.5); Lymphocytes % 9.1 K/mm3 (10-50); Mean Corpuscular HGB Conc 31.3 g/dL (31.8-35.4); Mean Corpuscular Volume 89.5 fl (81-99); Mean Platelet Volume 7.6 fl (7.4-10.4); Monocytes # 0.4 K/mm3 (0.1-1.0); Monocytes % 3.8 % (1.7-9.3); Neutrophils # 8.5 K/mm3 (1.8-7.8); Neutrophils % 86.7 % (37.0-80.0); Platelet Count 276 K/mm3 (142-424); Red Blood Count 4.51 M/mm3 (4.20-5.40); White Blood Count 9.8 K/mm3 (4.8-10.8)
[2017-06-04 06:50] LABS: MANUAL DIFFERENTIAL MANUAL DIFFERENTIAL (MANUAL DIFF)
[2017-06-04 06:51] LABS: Alanine Aminotransferase 65 U/L (12-78); Albumin Level 2.8 gm/dL (3.4-5.0); Albumin/Globulin Ratio 0.8 (1.1-1.8); Alkaline Phosphatase 109 U/L (46-116); Anion Gap 11.5 mEq/L (5-15); Aspartate Amino Transferase 16 U/L (15-37); Bilirubin,Total 0.4 mg/dL (0.2-1.0); Blood Urea Nitrogen 43 mg/dL (7-18); Calcium 8.2 mg/dL (8.5-10.1); Carbon Dioxide 29 mmol/L (21.0-32.0); Chloride 100 mmol/L (98-107); Creatinine Clearance Estimated 81 mL/min (0-300); Creatinine,Serum 1.28 mg/dL (0.55-1.02); Estimated Glomerular Filt Rate 43 ml/min (>60); GFR (African American) 52 ML/MIN (>60); Globulin 3.5 gm/dl (1.3-3.2); Glucose 389 mg/dL (74-106); Potassium 3.5 mmoL/L (3.5-5.1); Sodium 137 mmol/L (136-145); Total Protein,Serum 6.3 gm/dL (6.4-8.2)
--- NOTE | 2017-06-04 07:09 | PC.NURSE ---
Shift report given to Kari Conklin RN leaving pt safe and stable.
[2017-06-04 07:49] LABS: POC Glucose,Bedside 408 mg/dL (70-110)
--- NOTE | 2017-06-04 08:05 | HMH.PNCARD ---
Subjective Date: 06/04/17 Time: 08:05 Principal diagnosis: A. fib, CHF, Cardiomyopathy Interval history: Breathing has improved with large diuresis but she is still SOA with minimal activity. HR on telemetry is in the 110-120's with minimal activity. Echo shows LV dilatation with EF 25-30%. Attempting to adjust meds to standard therapy for dilated CM. Will stop Norvasc and try switching IV dilitiazem to PO and wean as tolerated. Continue coreg and KELLEE. Add digoxin and continue IV lasix today. Exam Vital signs and Labs for Last 24 Hours: Temp Pulse Resp BP Pulse Ox 97.3 F L 103 H 16 139/95 90 L 06/04/17 05:00 06/04/17 06:24 06/04/17 06:00 06/04/17 06:00 06/04/17 06:24 Laboratory Results - last 24 hr 06/03/17 09:50: Total Creatine Kinase 65, CK-MB (CK-2) 2.1, CK-MB (CK-2) Rel Index 3.2, Troponin I < 0.02 06/03/17 12:20: POC Glucose 408 06/03/17 17:25: POC Glucose 479 06/03/17 20:07: POC Glucose 469 06/04/17 06:00: WBC 9.8 D, RBC 4.51, Hgb 12.6, Hct 40.4, MCV 89.5, MCH 28.0, MCHC 31.3 L, RDW 15.0, Plt Count 276, MPV 7.6, Neut % (Auto) 86.7 H, Lymph % (Auto) 9.1 L, [place] % (Auto) 3.8, Eos % (Auto) 0.4, Baso % (Auto) 0.1, Neut # (Auto) 8.5 H, Lymph # (Auto) 0.9, [place] # (Auto) 0.4, Eos # (Auto) 0.0, Baso # (Auto) 0.0 06/04/17 06:00: Sodium 137, Potassium 3.5, Chloride 100, Carbon Dioxide 29, Anion Gap 11.5, BUN 43 H, Creatinine 1.28 H, Estimated Creat Clear 81, Estimated GFR 43 L, Est GFR ( Amer) 52 L, Glucose 389 H, Calcium 8.2 L, Total Bilirubin 0.4, AST 16 D, ALT 65, Alkaline Phosphatase 109, Total Protein 6.3 L, Albumin 2.8 L, Globulin 3.5 H, Albumin/Globulin Ratio 0.8 L I & O for Last 24 hours: Intake & Output 06/01/17 06/02/17 06/03/17 06/04/17 11:59 11:59 11:59 11:59 Intake Total 89 / 89 601 / 601 1876 / 1876 1507 / 1507 Output Total 600 / 600 240 / 240 1840 / 1840 3200 / 3200 Balance -511 / -511 361 / 361 36 / 36 -1693 / -1693 Weight 225 lb 4 oz 230 lb 1.011 oz 230 lb 1.011 oz 235 lb 3 oz - *Routine Respiratory Exam Present: wheezes, diminished air movement - *Routine Cardiovascular Exam Present: tachycardia, irregularly irregular - *Routine Neurological Exam Present: alert, oriented X3, moving all extremities Progress Note: A&P (1) Atrial fibrillation with rapid ventricular response Status: Acute Assessment and plan: Using combo of coreg and diltiazem at this time with plans to stop diltiazem when able. Current Visit: Yes (2) CHF (congestive heart failure), NYHA class IV Status: Acute Current Visit: Yes (3) Coronary artery disease Status: Acute Current Visit: Yes (4) Acute exacerbation of chronic obstructive airways disease Status: Acute Current Visit: Yes (5) Diabetes mellitus Status: Acute Current Visit: No (6) Renal insufficiency Status: Acute Current Visit: No Assessment and Plan for All Diagnoses:: IV lasix today. Stop norvasc. Add digoxin IV to PO diltiazem. Follow I/O and renal status. Continue Xarelto for A. fib but reduce to 15 mg due to renal function. Continue plavix for CAD.
--- NOTE | 2017-06-04 08:08 | P.PN_ITS ---
Subjective Date: 06/04/17 Time: 08:05 Principal diagnosis: A. fib, CHF, Cardiomyopathy Interval history: Breathing has improved with large diuresis but she is still SOA with minimal activity. HR on telemetry is in the 110-120's with minimal activity. Echo shows LV dilatation with EF 25-30%. Attempting to adjust meds to standard therapy for dilated CM. Will stop Norvasc and try switching IV dilitiazem to PO and wean as tolerated. Continue coreg and KELLEE. Add digoxin and continue IV lasix today. Exam Vital signs and Labs for Last 24 Hours: Temp Pulse Resp BP Pulse Ox 97.3 F L 103 H 16 139/95 90 L 06/04/17 05:00 06/04/17 06:24 06/04/17 06:00 06/04/17 06:00 06/04/17 06:24 Laboratory Results - last 24 hr 06/03/17 09:50: Total Creatine Kinase 65, CK-MB (CK-2) 2.1, CK-MB (CK-2) Rel Index 3.2, Troponin I < 0.02 06/03/17 12:20: POC Glucose 408 06/03/17 17:25: POC Glucose 479 06/03/17 20:07: POC Glucose 469 06/04/17 06:00: WBC 9.8 D, RBC 4.51, Hgb 12.6, Hct 40.4, MCV 89.5, MCH 28.0, MCHC 31.3 L, RDW 15.0, Plt Count 276, MPV 7.6, Neut % (Auto) 86.7 H, Lymph % ( Auto) 9.1 L, [place] % (Auto) 3.8, Eos % (Auto) 0.4, Baso % (Auto) 0.1, Neut # ( Auto) 8.5 H, Lymph # (Auto) 0.9, [place] # (Auto) 0.4, Eos # (Auto) 0.0, Baso # ( Auto) 0.0 06/04/17 06:00: Sodium 137, Potassium 3.5, Chloride 100, Carbon Dioxide 29, Anion Gap 11.5, BUN 43 H, Creatinine 1.28 H, Estimated Creat Clear 81, Estimated GFR 43 L, Est GFR ( Amer) 52 L, Glucose 389 H, Calcium 8.2 L, Total Bilirubin 0.4, AST 16 D, ALT 65, Alkaline Phosphatase 109, Total Protein 6.3 L, Albumin 2.8 L, Globulin 3.5 H, Albumin/Globulin Ratio 0.8 L I & O for Last 24 hours: Intake & Output 06/01/17 06/02/17 06/03/17 06/04/17 11:59 11:59 11:59 11:59 Intake Total 89 / 89 601 / 601 1876 / 1876 1507 / 1507 Output Total 600 / 600 240 / 240 1840 / 1840 3200 / 3200 Balance -511 / -511 361 / 361 36 / 36 -1693 / -1693 Weight 225 lb 4 oz 230 lb 1.011 oz 230 lb 1.011 oz 235 lb 3 oz - *Routine Respiratory Exam Present: wheezes, diminished air movement - *Routine Cardiovascular Exam Present: tachycardia, irregularly irregular - *Routine Neurological Exam Present: alert, oriented X3, moving all extremities Progress Note: A&P (1) Atrial fibrillation with rapid ventricular response Status: Acute Assessment and plan: Using combo of coreg and diltiazem at this time with plans to stop diltiazem when able. Current Visit: Yes (2) CHF (congestive heart failure), NYHA class IV Status: Acute Current Visit: Yes (3) Coronary artery disease Status: Acute Current Visit: Yes (4) Acute exacerbation of chronic obstructive airways disease Status: Acute Current Visit: Yes (5) Diabetes mellitus Status: Acute Current Visit: No (6) Renal insufficiency Status: Acute Current Visit: No Assessment and Plan for All Diagnoses:: IV lasix today. Stop norvasc. Add digoxin IV to PO diltiazem. Follow I/O and renal status. Continue Xarelto for A. fib but reduce to 15 mg due to renal function. Continue plavix for CAD.
--- NOTE | 2017-06-04 08:10 | P.PN_ITS ---
Internal Medicine - PN: Subj *Date: 06/04/17 *Time: 08:10 Exam Vital signs and Labs for Last 24 Hours: Temp Pulse Resp BP Pulse Ox 97.3 F L 103 H 16 139/95 90 L 06/04/17 05:00 06/04/17 06:24 06/04/17 06:00 06/04/17 06:00 06/04/17 06:24 Laboratory Results - last 24 hr 06/03/17 09:50: Total Creatine Kinase 65, CK-MB (CK-2) 2.1, CK-MB (CK-2) Rel Index 3.2, Troponin I < 0.02 06/03/17 12:20: POC Glucose 408 06/03/17 17:25: POC Glucose 479 06/03/17 20:07: POC Glucose 469 06/04/17 06:00: WBC 9.8 D, RBC 4.51, Hgb 12.6, Hct 40.4, MCV 89.5, MCH 28.0, MCHC 31.3 L, RDW 15.0, Plt Count 276, MPV 7.6, Neut % (Auto) 86.7 H, Lymph % ( Auto) 9.1 L, [place] % (Auto) 3.8, Eos % (Auto) 0.4, Baso % (Auto) 0.1, Neut # ( Auto) 8.5 H, Lymph # (Auto) 0.9, [place] # (Auto) 0.4, Eos # (Auto) 0.0, Baso # ( Auto) 0.0 06/04/17 06:00: Sodium 137, Potassium 3.5, Chloride 100, Carbon Dioxide 29, Anion Gap 11.5, BUN 43 H, Creatinine 1.28 H, Estimated Creat Clear 81, Estimated GFR 43 L, Est GFR ( Amer) 52 L, Glucose 389 H, Calcium 8.2 L, Total Bilirubin 0.4, AST 16 D, ALT 65, Alkaline Phosphatase 109, Total Protein 6.3 L, Albumin 2.8 L, Globulin 3.5 H, Albumin/Globulin Ratio 0.8 L I & O for Last 24 hours: Intake & Output 06/01/17 06/02/17 06/03/17 06/04/17 23:59 23:59 23:59 23:59 Intake Total 89 / 89 1475 / 1475 2210 / 2210 299 / 299 Output Total 840 / 840 490 / 490 4550 / 4550 Balance -751 / -751 985 / 985 -2340 / -2340 299 / 299 Weight 102.172 kg 104.355 kg 104.355 kg 106.679 kg Assessment and Plan (1) Atrial fibrillation with rapid ventricular response Current visit: Yes Status: Acute Category: Medical Code(s): I48.91 - Unspecified atrial fibrillation (2) CHF (congestive heart failure), NYHA class IV Current visit: Yes Status: Acute Category: Medical Code(s): I50.9 - Heart failure, unspecified (3) Coronary artery disease Current visit: Yes Status: Acute Category: Medical Code(s): I25.10 - Atherosclerotic heart disease of [place] coronary artery without angina pectoris (4) Acute exacerbation of chronic obstructive airways disease Current visit: Yes Status: Acute Category: Medical Code(s): J44.1 - Chronic obstructive pulmonary disease with (acute) exacerbation (5) Diabetes mellitus Current visit: No Status: Acute Qualifiers: Qualified Code(s): E11.8 - Type 2 diabetes mellitus with unspecified complications Category: Medical Code(s): E11.9 - Type 2 diabetes mellitus without complications (6) Renal insufficiency Current visit: No Status: Acute Category: Medical Code(s): N28.9 - Disorder of kidney and ureter, unspecified The patient's infection will respond to the chosen ABx?: Yes Is the patient receiving the right drug, dose, and route?: Yes Could a more targeted ABx be ordered?: No (CX SHOW NO GROWTH AT THE TIME OF THIS NOTE)
[2017-06-04 08:55] LABS: Lymphocytes % 6 % (10-50); Monocytes % 3 % (2-9); Neutrophils % 91 % (42-76); Platelet Estimate Normal; Total Cells Counted 100
--- NOTE | 2017-06-04 09:06 | HMH.ACPN2 ---
Internal Medicine - PN: Subj *Date: 06/04/17 *Time: 09:06 Interval history: pt with sob and tachycardia with dec ef Exam Vital signs and Labs for Last 24 Hours: Temp Pulse Resp BP Pulse Ox 97.3 F L 118 H 20 139/95 91 L 06/04/17 05:00 06/04/17 08:15 06/04/17 08:15 06/04/17 06:00 06/04/17 08:15 Laboratory Results - last 24 hr 06/03/17 09:50: Total Creatine Kinase 65, CK-MB (CK-2) 2.1, CK-MB (CK-2) Rel Index 3.2, Troponin I < 0.02 06/03/17 12:20: POC Glucose 408 06/03/17 17:25: POC Glucose 479 06/03/17 20:07: POC Glucose 469 06/04/17 06:00: WBC 9.8 D, RBC 4.51, Hgb 12.6, Hct 40.4, MCV 89.5, MCH 28.0, MCHC 31.3 L, RDW 15.0, Plt Count 276, MPV 7.6, Neut % (Auto) 86.7 H, Lymph % (Auto) 9.1 L, [place] % (Auto) 3.8, Eos % (Auto) 0.4, Baso % (Auto) 0.1, Neut # (Auto) 8.5 H, Lymph # (Auto) 0.9, [place] # (Auto) 0.4, Eos # (Auto) 0.0, Baso # (Auto) 0.0, Total Counted 100, Neutrophils % (Manual) 91 H, Lymphocytes % (Manual) 6 L, Monocytes % (Manual) 3, Platelet Estimate Normal 06/04/17 06:00: Sodium 137, Potassium 3.5, Chloride 100, Carbon Dioxide 29, Anion Gap 11.5, BUN 43 H, Creatinine 1.28 H, Estimated Creat Clear 81, Estimated GFR 43 L, Est GFR ( Amer) 52 L, Glucose 389 H, Calcium 8.2 L, Total Bilirubin 0.4, AST 16 D, ALT 65, Alkaline Phosphatase 109, Total Protein 6.3 L, Albumin 2.8 L, Globulin 3.5 H, Albumin/Globulin Ratio 0.8 L I & O for Last 24 hours: Intake & Output 06/01/17 06/02/17 06/03/17 06/04/17 11:59 11:59 11:59 11:59 Intake Total 89 / 89 601 / 601 1876 / 1876 1507 / 1507 Output Total 600 / 600 240 / 240 1840 / 1840 3200 / 3200 Balance -511 / -511 361 / 361 36 / 36 -1693 / -1693 Weight 225 lb 4 oz 230 lb 1.011 oz 230 lb 1.011 oz 235 lb 3 oz - Constitutional no acute distress - *Routine HEENT Exam Head: Present: normocephalic Eye: Present: EOMI, PERRL ENT: Present: mucous membranes dry - *Routine Neck Exam Absent: JVD - *Routine Respiratory Exam Present: decreased breath sounds - *Routine Cardiovascular Exam Present: murmur, S3 - *Routine Extremities Exam Present: edema - *Routine Skin Exam Present: intact - *Routine Neurological Exam Present: alert, oriented X3, CN II-XII intact - Routine Psychiatric Exam Present: normal affect Assessment and Plan (1) Atrial fibrillation with rapid ventricular response Current visit: Yes Status: Acute Category: Medical Code(s): I48.91 - Unspecified atrial fibrillation (2) CHF (congestive heart failure), NYHA class IV Current visit: Yes Status: Acute Category: Medical Code(s): I50.9 - Heart failure, unspecified (3) Coronary artery disease Current visit: Yes Status: Acute Category: Medical Code(s): I25.10 - Atherosclerotic heart disease of [place] coronary artery without angina pectoris (4) Acute exacerbation of chronic obstructive airways disease Current visit: Yes Status: Acute Category: Medical Code(s): J44.1 - Chronic obstructive pulmonary disease with (acute) exacerbation (5) Diabetes mellitus Current visit: No Status: Acute Qualifiers: Diabetes mellitus type: type 2 Diabetes mellitus intermediate manager insulin use: unspecified longterm insulin use status Diabetes mellitus complication status: with unspecified complications Qualified Code(s): E11.8 - Type 2 diabetes mellitus with unspecified complications Category: Medical Code(s): E11.9 - Type 2 diabetes mellitus without complications (6) Renal insufficiency Current visit: No Status: Acute Category: Medical Code(s): N28.9 - Disorder of kidney and ureter, unspecified
--- NOTE | 2017-06-04 09:12 | P.PN_ITS ---
Internal Medicine - PN: Subj *Date: 06/04/17 *Time: 09:06 Interval history: pt with sob and tachycardia with dec ef Exam Vital signs and Labs for Last 24 Hours: Temp Pulse Resp BP Pulse Ox 97.3 F L 118 H 20 139/95 91 L 06/04/17 05:00 06/04/17 08:15 06/04/17 08:15 06/04/17 06:00 06/04/17 08:15 Laboratory Results - last 24 hr 06/03/17 09:50: Total Creatine Kinase 65, CK-MB (CK-2) 2.1, CK-MB (CK-2) Rel Index 3.2, Troponin I < 0.02 06/03/17 12:20: POC Glucose 408 06/03/17 17:25: POC Glucose 479 06/03/17 20:07: POC Glucose 469 06/04/17 06:00: WBC 9.8 D, RBC 4.51, Hgb 12.6, Hct 40.4, MCV 89.5, MCH 28.0, MCHC 31.3 L, RDW 15.0, Plt Count 276, MPV 7.6, Neut % (Auto) 86.7 H, Lymph % ( Auto) 9.1 L, [place] % (Auto) 3.8, Eos % (Auto) 0.4, Baso % (Auto) 0.1, Neut # ( Auto) 8.5 H, Lymph # (Auto) 0.9, [place] # (Auto) 0.4, Eos # (Auto) 0.0, Baso # ( Auto) 0.0, Total Counted 100, Neutrophils % (Manual) 91 H, Lymphocytes % (Manual ) 6 L, Monocytes % (Manual) 3, Platelet Estimate Normal 06/04/17 06:00: Sodium 137, Potassium 3.5, Chloride 100, Carbon Dioxide 29, Anion Gap 11.5, BUN 43 H, Creatinine 1.28 H, Estimated Creat Clear 81, Estimated GFR 43 L, Est GFR ( Amer) 52 L, Glucose 389 H, Calcium 8.2 L, Total Bilirubin 0.4, AST 16 D, ALT 65, Alkaline Phosphatase 109, Total Protein 6.3 L, Albumin 2.8 L, Globulin 3.5 H, Albumin/Globulin Ratio 0.8 L I & O for Last 24 hours: Intake & Output 06/01/17 06/02/17 06/03/17 06/04/17 11:59 11:59 11:59 11:59 Intake Total 89 / 89 601 / 601 1876 / 1876 1507 / 1507 Output Total 600 / 600 240 / 240 1840 / 1840 3200 / 3200 Balance -511 / -511 361 / 361 36 / 36 -1693 / -1693 Weight 225 lb 4 oz 230 lb 1.011 oz 230 lb 1.011 oz 235 lb 3 oz - Constitutional no acute distress - *Routine HEENT Exam Head: Present: normocephalic Eye: Present: EOMI, PERRL ENT: Present: mucous membranes dry - *Routine Neck Exam Absent: JVD - *Routine Respiratory Exam Present: decreased breath sounds - *Routine Cardiovascular Exam Present: murmur, S3 - *Routine Extremities Exam Present: edema - *Routine Skin Exam Present: intact - *Routine Neurological Exam Present: alert, oriented X3, CN II-XII intact - Routine Psychiatric Exam Present: normal affect Assessment and Plan (1) Atrial fibrillation with rapid ventricular response Current visit: Yes Status: Acute Category: Medical Code(s): I48.91 - Unspecified atrial fibrillation (2) CHF (congestive heart failure), NYHA class IV Current visit: Yes Status: Acute Category: Medical Code(s): I50.9 - Heart failure, unspecified (3) Coronary artery disease Current visit: Yes Status: Acute Category: Medical Code(s): I25.10 - Atherosclerotic heart disease of [place] coronary artery without angina pectoris (4) Acute exacerbation of chronic obstructive airways disease Current visit: Yes Status: Acute Category: Medical Code(s): J44.1 - Chronic obstructive pulmonary disease with (acute) exacerbation (5) Diabetes mellitus Current visit: No Status: Acute Qualifiers: Diabetes mellitus type: type 2 Diabetes mellitus skilled nursing insulin use: unspecified extermination 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
--- NOTE | 2017-06-04 10:36 | PC.NURSE ---
spoke with uday robertson this morning about plans for patient. decided to try po cardizem and stopping drip to see how patient heart rate does, he also started her on digoxin and changed her dose of xarelto to reflect kidney function. currently remains still in afib with a heart rate jumping between 90 and 120.
--- NOTE | 2017-06-04 10:41 | PC.NURSE ---
did pass along to dr smith that patient fsbs continue to be in the 400s. no new orders at this time
[2017-06-04 11:50] LABS: POC Glucose,Bedside 406 mg/dL (70-110)
[2017-06-04 11:50] LABS: POC Glucose,Bedside 456 mg/dL (70-110)
--- NOTE | 2017-06-04 12:52 | PC.NURSE ---
spoke to uday robertson at this time. he is aware patient heart rate is staying elevated. stated he was going to switch her back to metoprolol and dc the coreg
--- NOTE | 2017-06-04 16:14 | PC.NURSE ---
spoke with dr. smith at this time. since patient is no longer on drip she is okayed to come out of stepdown, and be made acute
[2017-06-04 17:13] LABS: POC Glucose,Bedside 463 mg/dL (70-110)
--- NOTE | 2017-06-04 17:32 | PC.NURSE ---
patient has had a good shift. she has been up walking to and from bathroom in room independently. she still has shortness of breath. heart rate remained elevated through out day until her metoprolol dose was given. after that heart rate has ranged 70-90s. patient no longer stepdown. remains on o2 for sats and sob. vss will continue to monitor.
[2017-06-04 22:28] LABS: POC Glucose,Bedside 475 mg/dL (70-110)
[2017-06-05] VITALS (14 sets, daily range): BP systolic 128–158; BP diastolic 74–96; PULSE 72–115; RESP 16–24; TEMP 36.4–36.6; O2SAT 90–96
[2017-06-05 06:33] LABS: POC Glucose,Bedside 296 mg/dL (70-110)
[2017-06-05 07:31] LABS: Alanine Aminotransferase 64 U/L (12-78); Albumin/Globulin Ratio 0.9 (1.1-1.8); Alkaline Phosphatase 107 U/L (46-116); Anion Gap 9.5 mEq/L (5-15); Aspartate Amino Transferase 14 U/L (15-37); Bilirubin,Total 0.8 mg/dL (0.2-1.0); Blood Urea Nitrogen 38 mg/dL (7-18); Calcium 8.5 mg/dL (8.5-10.1); Carbon Dioxide 34 mmol/L (21.0-32.0); Chloride 98 mmol/L (98-107); Creatinine Clearance Estimated 99 mL/min (0-300); Creatinine,Serum 1.02 mg/dL (0.55-1.02); Estimated Glomerular Filt Rate 56 ml/min (>60); GFR (African American) 67 ML/MIN (>60); Globulin 3.5 gm/dl (1.3-3.2); Glucose 320 mg/dL (74-106); Potassium 3.5 mmoL/L (3.5-5.1); Sodium 138 mmol/L (136-145); Total Protein,Serum 6.5 gm/dL (6.4-8.2)
--- NOTE | 2017-06-05 09:30 | HMH.ACPN2 ---
Internal Medicine - PN: Subj *Date: 06/05/17 *Time: 09:30 Interval history: pt with sob and improved hr Exam Vital signs and Labs for Last 24 Hours: Temp Pulse Resp BP Pulse Ox 97.7 F 102 H 20 142/94 90 L 06/05/17 08:00 06/05/17 08:50 06/05/17 08:00 06/05/17 08:00 06/05/17 08:00 Laboratory Results - last 24 hr 06/04/17 06:06: POC Glucose 406 06/04/17 11:16: POC Glucose 456 06/04/17 17:02: POC Glucose 463 06/04/17 20:14: POC Glucose 475 06/05/17 06:22: POC Glucose 296 06/05/17 06:30: Sodium 138, Potassium 3.5, Chloride 98, Carbon Dioxide 34 H, Anion Gap 9.5, BUN 38 H, Creatinine 1.02 D, Estimated Creat Clear 99, Estimated GFR 56 L, Est GFR ( Amer) 67 D, Glucose 320 H, Calcium 8.5, Total Bilirubin 0.8, AST 14 L, ALT 64, Alkaline Phosphatase 107, Total Protein 6.5, Albumin 3.0 L, Globulin 3.5 H, Albumin/Globulin Ratio 0.9 L I & O for Last 24 hours: Intake & Output 06/02/17 06/03/17 06/04/17 06/05/17 11:59 11:59 11:59 11:59 Intake Total 601 / 601 1876 / 1876 1507 / 1507 1320 / 1320 Output Total 240 / 240 1840 / 1840 3700 / 3700 4800 / 4800 Balance 361 / 361 36 / 36 -2193 / -2193 -3480 / -3480 Weight 230 lb 1.011 oz 230 lb 1.011 oz 235 lb 3 oz 229 lb 2 oz - Constitutional no acute distress - *Routine HEENT Exam Head: Present: normocephalic Eye: Present: EOMI, PERRL ENT: Present: mucous membranes dry - *Routine Neck Exam Present: supple - *Routine Respiratory Exam Present: decreased breath sounds - *Routine Cardiovascular Exam Present: murmur, S4, irregular rhythm - *Routine Extremities Exam Absent: calf tenderness - *Routine Skin Exam Present: intact - *Routine Neurological Exam Present: alert, CN II-XII intact - Routine Psychiatric Exam Present: normal affect Assessment and Plan (1) Atrial fibrillation with rapid ventricular response Current visit: Yes Status: Acute Category: Medical Code(s): I48.91 - Unspecified atrial fibrillation (2) CHF (congestive heart failure), NYHA class IV Current visit: Yes Status: Acute Category: Medical Code(s): I50.9 - Heart failure, unspecified (3) Coronary artery disease Current visit: Yes Status: Acute Category: Medical Code(s): I25.10 - Atherosclerotic heart disease of [place] coronary artery without angina pectoris (4) Acute exacerbation of chronic obstructive airways disease Current visit: Yes Status: Acute Category: Medical Code(s): J44.1 - Chronic obstructive pulmonary disease with (acute) exacerbation (5) Diabetes mellitus Current visit: No Status: Acute Qualifiers: Diabetes mellitus type: type 2 Diabetes mellitus 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
--- NOTE | 2017-06-05 12:16 | HMH.PNCARD ---
Subjective Date: 06/05/17 Time: 10:30 Principal diagnosis: A. fib, CHF, Cardiomyopathy Interval history: Breathing is slightly better than yesterday. HR improved on metoprolol. Will increase to 150 mg BID today and give additional lasix IV since renal status is stable. Consider RALF with cardioversion tomorrow to try and restore NSR. This may be the cause of her cardiomyopathy. Discussed LifeVest with her and she is willing to wear it. Exam Vital signs and Labs for Last 24 Hours: Temp Pulse Resp BP Pulse Ox 97.6 F 110 H 18 154/90 90 L 06/05/17 11:55 06/05/17 11:55 06/05/17 11:55 06/05/17 11:55 06/05/17 11:55 Laboratory Results - last 24 hr 06/04/17 17:02: POC Glucose 463 06/04/17 20:14: POC Glucose 475 06/05/17 06:22: POC Glucose 296 06/05/17 06:30: Sodium 138, Potassium 3.5, Chloride 98, Carbon Dioxide 34 H, Anion Gap 9.5, BUN 38 H, Creatinine 1.02 D, Estimated Creat Clear 99, Estimated GFR 56 L, Est GFR ( Amer) 67 D, Glucose 320 H, Calcium 8.5, Total Bilirubin 0.8, AST 14 L, ALT 64, Alkaline Phosphatase 107, Total Protein 6.5, Albumin 3.0 L, Globulin 3.5 H, Albumin/Globulin Ratio 0.9 L I & O for Last 24 hours: Intake & Output 06/03/17 06/04/17 06/05/17 06/06/17 11:59 11:59 11:59 11:59 Intake Total 1876 / 1876 1507 / 1507 1320 / 1320 Output Total 1840 / 1840 3700 / 3700 4800 / 4800 Balance 36 / 36 -2193 / -2193 -3480 / -3480 Weight 230 lb 1.011 oz 235 lb 3 oz 229 lb 2 oz - *Routine Respiratory Exam Present: diminished air movement. Absent: wheezes - *Routine Cardiovascular Exam Present: irregularly irregular - *Routine Extremities Exam Present: edema Progress Note: A&P (1) Atrial fibrillation with rapid ventricular response Status: Acute Assessment and plan: On combo of BB and CCB. Will try to increase BB (pt has remotely been on metoprolol 200 mg BID) and stop CCB. Continue Xarelto. Plan RALF/Cardioversion tomorrow. Current Visit: Yes (2) CHF (congestive heart failure), NYHA class IV Status: Acute Current Visit: Yes (3) Coronary artery disease Status: Acute Current Visit: Yes (4) Acute exacerbation of chronic obstructive airways disease Status: Acute Current Visit: Yes (5) Diabetes mellitus Status: Acute Current Visit: No (6) Renal insufficiency Status: Acute Current Visit: No Assessment and Plan for All Diagnoses:: See above.
--- NOTE | 2017-06-05 16:53 | SW/DCPLANNER ---
Spoke with patient this afternoon during care rounds. Patient stated that she lives at home with her 14 year old grandson that she has raised since he was born. Patient stated that she does not drive and will be homebound and thinks she can benefit from home health services. I will follow up with patient at time of discharge to assist with any new order/needs and setting up home health services.
[2017-06-05 17:27] LABS: POC Glucose,Bedside 313 mg/dL (70-110)
[2017-06-05 17:27] LABS: POC Glucose,Bedside 339 mg/dL (70-110)
--- NOTE | 2017-06-05 18:25 | DIET.NUTRFU ---
PO intakes on diabetic cardiac diet are 75-100%. Pt observed eating lunch and she had made some healthy choices high in vegetables, but also she is consuming a lot of ice creams and sherbets. Blood sugars have been quite elevated maintaining in the 400's. Teaching provided on making low carb choices, and walking encouraged to improve blood sugars. Pt acknowledges. Will continue to monitor.
--- NOTE | 2017-06-05 19:22 | PC.NURSE ---
report given to antoinna
--- NOTE | 2017-06-05 19:46 | PC.NURSE ---
Report received from Mary Jane Lilly RN
[2017-06-05 21:02] LABS: POC Glucose,Bedside 314 mg/dL (70-110)
--- NOTE | 2017-06-05 22:42 | PC.NURSE ---
Pt medicated with Tylenol for c/o back and hip pain 12/25. Pt reports it is hot, burning, and crampy pain.
[2017-06-06] VITALS (15 sets, daily range): BP systolic 118–150; BP diastolic 68–88; PULSE 76–120; RESP 17–22; TEMP 36.2–36.6; O2SAT 88–100
--- NOTE | 2017-06-06 04:16 | PC.NURSE ---
Pt has had an uneventful shift. Pt is A&Ox4. VSS. Afebrile. Heart rate irreg with afib with controlled ventricular response. Pt with intermittent productive cough with greenish sputum expectorated. Lungs CTA but diminished. O2 @ 3LPM via NC in place. Abd soft and nontender /c active BS x4 quads. IV (L) AC saline locked with good blood return. Attempted to rotate sites x2 /s success. Pt ambulates to independently this shift. Pt has slept intermittently this shift. Bed in low position, call vargas within reach. Will continue to monitor.
[2017-06-06 05:27] LABS: POC Glucose,Bedside 318 mg/dL (70-110)
--- NOTE | 2017-06-06 06:29 | XR_ITS ---
XR chest 2V HISTORY: ITS.REASON: congestion ORDERING PHYSICIAN: Justin Flores MD PATIENT AGE: 56 years COMPARISON: 05/31/2017 FINDINGS: Consolidation has developed in the left lower lobe consistent with pneumonia with small effusion. Patchy density also present in the right lower lobe consistent with pneumonia. Surgical clips in the right axilla. Borderline cardiomegaly without failure. No acute bony anomalies. IMPRESSION: Bilateral lower lobe pneumonia with left-sided effusion
[2017-06-06 07:00] LABS: Anion Gap 9.6 mEq/L (5-15); Blood Urea Nitrogen 29 mg/dL (7-18); Carbon Dioxide 32 mmol/L (21.0-32.0); Chloride 100 mmol/L (98-107); Creatinine Clearance Estimated 100 mL/min (0-300); Estimated Glomerular Filt Rate 57 ml/min (>60); GFR (African American) 69 ML/MIN (>60); Glucose 318 mg/dL (74-106); Sodium 138 mmol/L (136-145)
--- NOTE | 2017-06-06 07:00 | PC.NURSE ---
Report given to Alvin Alexis RN
[2017-06-06 07:07] LABS: Potassium 3.6 mmoL/L (3.5-5.1)
--- NOTE | 2017-06-06 07:34 | PC.NURSE ---
REPORT GIVEN TO Shirley STRONG W/C
--- NOTE | 2017-06-06 08:30 | HMH.ACPN2 ---
Internal Medicine - PN: Subj *Date: 06/06/17 *Time: 08:30 Exam Vital signs and Labs for Last 24 Hours: Temp Pulse Resp BP Pulse Ox 97.6 F 112 H 20 140/85 94 L 06/06/17 08:00 06/06/17 08:00 06/06/17 08:00 06/06/17 08:00 06/06/17 08:00 Laboratory Results - last 24 hr 06/05/17 11:59: POC Glucose 339 06/05/17 16:54: POC Glucose 313 06/05/17 20:37: POC Glucose 314 06/06/17 05:15: POC Glucose 318 06/06/17 05:55: Sodium 138, Potassium 3.6, Chloride 100, Carbon Dioxide 32, Anion Gap 9.6, BUN 29 H, Creatinine 1.00, Estimated Creat Clear 100, Estimated GFR 57 L, Est GFR ( Amer) 69, Glucose 318 H I & O for Last 24 hours: Intake & Output 06/03/17 06/04/17 06/05/17 06/06/17 11:59 11:59 11:59 11:59 Intake Total 1876 / 1876 1507 / 1507 1320 / 1320 840 / 840 Output Total 1840 / 1840 3700 / 3700 4800 / 4800 1950 / 1950 Balance 36 / 36 -2193 / -2193 -3480 / -3480 -1110 / -1110 Weight 230 lb 1.011 oz 235 lb 3 oz 229 lb 2 oz 227 lb 2 oz - Constitutional no acute distress - *Routine HEENT Exam Head: Present: normocephalic Eye: Present: PERRL ENT: Present: mucous membranes moist - *Routine Neck Exam Present: supple, full ROM - *Routine Respiratory Exam Present: crackles, diminished air movement - *Routine Cardiovascular Exam Present: irregular rhythm - *Routine Abdominal Exam Present: soft, normoactive bowel sounds - *Routine Neurological Exam Present: alert, oriented X3, CN II-XII intact - Routine Psychiatric Exam Present: normal affect, normal thought process Assessment and Plan (1) Atrial fibrillation with rapid ventricular response Current visit: Yes Status: Acute Category: Medical Code(s): I48.91 - Unspecified atrial fibrillation (2) CHF (congestive heart failure), NYHA class IV Current visit: Yes Status: Acute Category: Medical Code(s): I50.9 - Heart failure, unspecified (3) Coronary artery disease Current visit: Yes Status: Acute Category: Medical Code(s): I25.10 - Atherosclerotic heart disease of [place] coronary artery without angina pectoris (4) Acute exacerbation of chronic obstructive airways disease Current visit: Yes Status: Acute Category: Medical Code(s): J44.1 - Chronic obstructive pulmonary disease with (acute) exacerbation (5) Diabetes mellitus Current visit: No Status: Acute Qualifiers: Diabetes mellitus type: type 2 Diabetes mellitus shelter insulin use: unspecified shelter insulin use status Diabetes mellitus complication status: with unspecified complications Qualified Code(s): E11.8 - Type 2 diabetes mellitus with unspecified complications Category: Medical Code(s): E11.9 - Type 2 diabetes mellitus without complications (6) Renal insufficiency Current visit: No Status: Acute Category: Medical Code(s): N28.9 - Disorder of kidney and ureter, unspecified - Assessment and plan all Dx Assessment and Plan for all problems:: RALF with cardioversion today, restart patient's home gabapentin for chronic pain.
--- NOTE | 2017-06-06 09:01 | HMH.PNCARD ---
Subjective Date: 06/06/17 Time: 09:01 Principal diagnosis: Jeri bueno, CHF, Cardiomyopathy Interval history: Still with coughing up phlegm and feels puffy with SOA. No chest pains. She does have chronic back pain which she states keeps her from sleeping well. Telemetry shows Jeri bueno with improved rate in the 90's at rest. BP controlled. Renal functions continue to improve with increased diuresis. Wt down about 8-9 lbs this week. Exam Vital signs and Labs for Last 24 Hours: Temp Pulse Resp BP Pulse Ox 97.6 F 100 H 22 140/85 94 L 06/06/17 08:00 06/06/17 08:34 06/06/17 08:00 06/06/17 08:00 06/06/17 08:00 Laboratory Results - last 24 hr 06/05/17 11:59: POC Glucose 339 06/05/17 16:54: POC Glucose 313 06/05/17 20:37: POC Glucose 314 06/06/17 05:15: POC Glucose 318 06/06/17 05:55: Sodium 138, Potassium 3.6, Chloride 100, Carbon Dioxide 32, Anion Gap 9.6, BUN 29 H, Creatinine 1.00, Estimated Creat Clear 100, Estimated GFR 57 L, Est GFR ( Amer) 69, Glucose 318 H I & O for Last 24 hours: Intake & Output 06/03/17 06/04/17 06/05/17 06/06/17 11:59 11:59 11:59 11:59 Intake Total 1876 / 1876 1507 / 1507 1320 / 1320 854 / 854 Output Total 1840 / 1840 3700 / 3700 4800 / 4800 1950 / 1950 Balance 36 / 36 -2193 / -2193 -3480 / -3480 -1096 / -1096 Weight 230 lb 1.011 oz 235 lb 3 oz 229 lb 2 oz 227 lb 2 oz - *Routine Respiratory Exam Present: rhonchi, diminished air movement - *Routine Cardiovascular Exam Present: irregularly irregular - *Routine Extremities Exam Present: edema Comments: chronic right arm edema with history of right mastectomy Progress Note: A&P (1) Atrial fibrillation with rapid ventricular response Status: Acute Current Visit: Yes (2) CHF (congestive heart failure), NYHA class IV Status: Acute Current Visit: Yes (3) Coronary artery disease Status: Acute Current Visit: Yes (4) Acute exacerbation of chronic obstructive airways disease Status: Acute Current Visit: Yes (5) Diabetes mellitus Status: Acute Current Visit: No (6) Renal insufficiency Status: Acute Current Visit: No Assessment and Plan for All Diagnoses:: Increase lasix to 80 mg BID. Supplement potassium chloraseptic throat spray CXR this AM shows bilateral pneumonia with improvement in CHF. Will cancel RALF/Cardioversion due to pneumonia. Defer treatment of pneumonia to Dr. Flores.
[2017-06-06 11:57] LABS: POC Glucose,Bedside 445 mg/dL (70-110)
[2017-06-06 17:03] LABS: POC Glucose,Bedside 248 mg/dL (70-110)
--- NOTE | 2017-06-06 18:04 | PC.NURSE ---
PATIENT HAD A LARGE BOWEL MOVEMENT THIS SHIFT
--- NOTE | 2017-06-06 18:09 | PC.NURSE ---
PATIENT IS SITTING ON SIDE OF BED VISITING WITH FAMILY AT THIS TIME. SHE DENIES PAIN OTHER THAN A LITTLE ACHING IN HER HIP. LUNGS HAVE RHONCHI IN ANTERIOR UPPER LOBES BILATERAL. PATIENT HAS A PRODUCTIVE COUGH AND WAS COUGHING UP YELLOW SPUTUM. SPUTUM CULTURE WAS OBTAINED AND SENT TO LAB. PATIENT REMAINS IN A.FIB ON MONITOR. SHE IS HAVING SIGNIFICANT OUTPUT THIS SHIFT. RIGHT ARM CONTINUES TO HAVE 2+ LYMPHEDEMA. GENERALIZED EDEMA 1+. CALL LIGHT WITHIN REACH WILL CONTINUE TO MONITOR
--- NOTE | 2017-06-06 18:58 | PC.NURSE ---
ZOLL REP AT BEDSIDE WITH PATIENT REPORT GIVEN TO ANNELISE CARDENAS RN
[2017-06-07] VITALS (15 sets, daily range): BP systolic 110–135; BP diastolic 75–85; PULSE 81–130; RESP 18–32; TEMP 36.6–37; O2SAT 88–95
[2017-06-07 01:48] LABS: POC Glucose,Bedside 216 mg/dL (70-110)
--- NOTE | 2017-06-07 03:41 | PC.NURSE ---
PT RESTED WELL THIS SHIFT. NO C/O PAIN. PT DID REQUEST A SLEEPING AID, CALLED MD GISELLE ORDERED BENEDRYL 25MG PO PRN. PT IS CURRENTLY ON 2L O2 NC, PT IS 88% RA. PT REMAINS IN UNCONTROLLED AFIB ON HEART MONITOR. OTHER VSS. PT HAS HAD 800MLS URINE OUTPUT. MEDS ADMIN PER MAY. NO OTHER CONCERNS AT THIS TIME, WILL CONT. TO MONITOR.
[2017-06-07 05:42] LABS: Anion Gap 6.7 mEq/L (5-15); Blood Urea Nitrogen 29 mg/dL (7-18); Carbon Dioxide 30 mmol/L (21.0-32.0); Chloride 100 mmol/L (98-107); Creatinine Clearance Estimated 85 mL/min (0-300); Creatinine,Serum 1.14 mg/dL (0.55-1.02); Estimated Glomerular Filt Rate 49 ml/min (>60); GFR (African American) 59 ML/MIN (>60); Glucose 299 mg/dL (74-106); Potassium 4.7 mmoL/L (3.5-5.1); Sodium 132 mmol/L (136-145)
--- NOTE | 2017-06-07 07:25 | PC.NURSE ---
REPORT GIVEN TO Katie RENO RN
--- NOTE | 2017-06-07 07:35 | PC.NURSE ---
REPORT GIVEN TO Himanshu GARG W/C
--- NOTE | 2017-06-07 08:50 | HMH.ACPN2 ---
Internal Medicine - PN: Subj *Date: 06/07/17 *Time: 08:50 Exam Vital signs and Labs for Last 24 Hours: Temp Pulse Resp BP Pulse Ox 98.3 F 81 20 130/85 95 06/07/17 07:42 06/07/17 07:42 06/07/17 07:42 06/07/17 07:42 06/07/17 07:42 Laboratory Results - last 24 hr 06/06/17 11:34: POC Glucose 445 06/06/17 16:37: POC Glucose 248 06/06/17 20:09: POC Glucose 216 06/07/17 05:10: Sodium 132 L, Potassium 4.7 D, Chloride 100, Carbon Dioxide 30, Anion Gap 6.7, BUN 29 H, Creatinine 1.14 H, Estimated Creat Clear 85, Estimated GFR 49 L, Est GFR ( Amer) 59, Glucose 299 H I & O for Last 24 hours: Intake & Output 06/04/17 06/05/17 06/06/17 06/07/17 11:59 11:59 11:59 11:59 Intake Total 1507 / 1507 1320 / 1320 854 / 854 900 / 900 Output Total 3700 / 3700 4800 / 4800 1950 / 1950 3100 / 3100 Balance -2193 / -2193 -3480 / -3480 -1096 / -1096 -2200 / -2200 Weight 235 lb 3 oz 229 lb 2 oz 227 lb 2 oz 219 lb 7 oz Microbiology Reports for the Last 24 Hours: Microbiology 06/06/17 14:00 Sputum - Expectorated Sputum Gram Stain - Final 06/06/17 14:00 Sputum - Expectorated Sputum Sputum Culture - Preliminary - Constitutional no acute distress - *Routine HEENT Exam Head: Present: normocephalic Eye: Present: PERRL ENT: Present: mucous membranes moist - *Routine Neck Exam Present: supple, full ROM - *Routine Respiratory Exam Present: diminished air movement - *Routine Cardiovascular Exam Present: irregular rhythm - *Routine Abdominal Exam Present: soft, normoactive bowel sounds - *Routine Neurological Exam Present: alert, oriented X3, CN II-XII intact - Routine Psychiatric Exam Present: normal affect, normal thought process Assessment and Plan (1) Atrial fibrillation with rapid ventricular response Current visit: Yes Status: Acute Category: Medical Code(s): I48.91 - Unspecified atrial fibrillation (2) CHF (congestive heart failure), NYHA class IV Current visit: Yes Status: Acute Category: Medical Code(s): I50.9 - Heart failure, unspecified (3) Coronary artery disease Current visit: Yes Status: Acute Category: Medical Code(s): I25.10 - Atherosclerotic heart disease of [place] coronary artery without angina pectoris (4) Acute exacerbation of chronic obstructive airways disease Current visit: Yes Status: Acute Category: Medical Code(s): J44.1 - Chronic obstructive pulmonary disease with (acute) exacerbation (5) Diabetes mellitus Current visit: No Status: Acute Qualifiers: Diabetes mellitus type: type 2 Diabetes mellitus alf insulin use: unspecified intermediate project manager insulin use status Diabetes mellitus complication status: with unspecified complications Qualified Code(s): E11.8 - Type 2 diabetes mellitus with unspecified complications Category: Medical Code(s): E11.9 - Type 2 diabetes mellitus without complications (6) Renal insufficiency Current visit: No Status: Acute Category: Medical Code(s): N28.9 - Disorder of kidney and ureter, unspecified - Assessment and plan all Dx Assessment and Plan for all problems:: Physical therapy, check oxygen saturation on room air, patient to be up moving around in room, we will discharge home possibly tomorrow on sliding scale insulin and follow-up in the office Saturday at 1:00
--- NOTE | 2017-06-07 08:53 | P.PN_ITS ---
Internal Medicine - PN: Subj *Date: 06/07/17 *Time: 08:50 Exam Vital signs and Labs for Last 24 Hours: Temp Pulse Resp BP Pulse Ox 98.3 F 81 20 130/85 95 06/07/17 07:42 06/07/17 07:42 06/07/17 07:42 06/07/17 07:42 06/07/17 07:42 Laboratory Results - last 24 hr 06/06/17 11:34: POC Glucose 445 06/06/17 16:37: POC Glucose 248 06/06/17 20:09: POC Glucose 216 06/07/17 05:10: Sodium 132 L, Potassium 4.7 D, Chloride 100, Carbon Dioxide 30 , Anion Gap 6.7, BUN 29 H, Creatinine 1.14 H, Estimated Creat Clear 85, Estimated GFR 49 L, Est GFR ( Amer) 59, Glucose 299 H I & O for Last 24 hours: Intake & Output 06/04/17 06/05/17 06/06/17 06/07/17 11:59 11:59 11:59 11:59 Intake Total 1507 / 1507 1320 / 1320 854 / 854 900 / 900 Output Total 3700 / 3700 4800 / 4800 1950 / 1950 3100 / 3100 Balance -2193 / -2193 -3480 / -3480 -1096 / -1096 -2200 / -2200 Weight 235 lb 3 oz 229 lb 2 oz 227 lb 2 oz 219 lb 7 oz Microbiology Reports for the Last 24 Hours: Microbiology 06/06/17 14:00 Sputum - Expectorated Sputum Gram Stain - Final 06/06/17 14:00 Sputum - Expectorated Sputum Sputum Culture - Preliminary - Constitutional no acute distress - *Routine HEENT Exam Head: Present: normocephalic Eye: Present: PERRL ENT: Present: mucous membranes moist - *Routine Neck Exam Present: supple, full ROM - *Routine Respiratory Exam Present: diminished air movement - *Routine Cardiovascular Exam Present: irregular rhythm - *Routine Abdominal Exam Present: soft, normoactive bowel sounds - *Routine Neurological Exam Present: alert, oriented X3, CN II-XII intact - Routine Psychiatric Exam Present: normal affect, normal thought process Assessment and Plan (1) Atrial fibrillation with rapid ventricular response Current visit: Yes Status: Acute Category: Medical Code(s): I48.91 - Unspecified atrial fibrillation (2) CHF (congestive heart failure), NYHA class IV Current visit: Yes Status: Acute Category: Medical Code(s): I50.9 - Heart failure, unspecified (3) Coronary artery disease Current visit: Yes Status: Acute Category: Medical Code(s): I25.10 - Atherosclerotic heart disease of [place] coronary artery without angina pectoris (4) Acute exacerbation of chronic obstructive airways disease Current visit: Yes Status: Acute Category: Medical Code(s): J44.1 - Chronic obstructive pulmonary disease with (acute) exacerbation (5) Diabetes mellitus Current visit: No Status: Acute Qualifiers: Diabetes mellitus type: type 2 Diabetes mellitus 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 insulin use: unspecified 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 insulin use status Diabetes mellitus complication status : with unspecified complications Qualified Code(s): E11.8 - Type 2 diabetes mellitus with unspecified complications Category: Medical Code(s): E11.9 - Type 2 diabetes mellitus without complications (6) Renal insufficiency Current visit: No Status: Acute Category: Medical Code(s): N28.9 - Disorder of kidney and ureter, unspecified - Assessment and plan all Dx Assessment and Plan for all problems:: Physical therapy, check oxygen saturation on room air, patient to be up moving around in room, we will discharge home possibly tomorrow on sliding scale insulin and follow-up in the office Saturday at 1:00
--- NOTE | 2017-06-07 09:02 | P.PN_ITS ---
Subjective Date: 06/07/17 Time: 08:57 Principal diagnosis: A. fib, CHF, Cardiomyopathy Interval history: 56-year-old white female sitting in bed in no acute distress. Patient states she is breathing and feeling much better today. No chest pain. Exam Vital signs and Labs for Last 24 Hours: Temp Pulse Resp BP Pulse Ox 98.3 F 130 H 20 130/85 95 06/07/17 07:42 06/07/17 08:48 06/07/17 07:42 06/07/17 07:42 06/07/17 07:42 Laboratory Results - last 24 hr 06/06/17 11:34: POC Glucose 445 06/06/17 16:37: POC Glucose 248 06/06/17 20:09: POC Glucose 216 06/07/17 05:10: Sodium 132 L, Potassium 4.7 D, Chloride 100, Carbon Dioxide 30 , Anion Gap 6.7, BUN 29 H, Creatinine 1.14 H, Estimated Creat Clear 85, Estimated GFR 49 L, Est GFR ( Amer) 59, Glucose 299 H I & O for Last 24 hours: Intake & Output 06/04/17 06/05/17 06/06/17 06/07/17 11:59 11:59 11:59 11:59 Intake Total 1507 / 1507 1320 / 1320 854 / 854 900 / 900 Output Total 3700 / 3700 4800 / 4800 1950 / 1950 3100 / 3100 Balance -2193 / -2193 -3480 / -3480 -1096 / -1096 -2200 / -2200 Weight 235 lb 3 oz 229 lb 2 oz 227 lb 2 oz 219 lb 7 oz Microbiology Reports for the Last 24 Hours: Microbiology 06/06/17 14:00 Sputum - Expectorated Sputum Gram Stain - Final 06/06/17 14:00 Sputum - Expectorated Sputum Sputum Culture - Preliminary - *Routine Respiratory Exam Comments: Improved breath sounds bilaterally. No appreciable wheezing. - *Routine Cardiovascular Exam Present: tachycardia, irregularly irregular - *Routine Neurological Exam Present: alert, oriented X3, moving all extremities Progress Note: A&P (1) Atrial fibrillation with rapid ventricular response Status: Acute Current Visit: Yes (2) CHF (congestive heart failure), NYHA class IV Status: Acute Current Visit: Yes (3) Coronary artery disease Status: Acute Current Visit: Yes (4) Acute exacerbation of chronic obstructive airways disease Status: Acute Current Visit: Yes (5) Diabetes mellitus Status: Acute Current Visit: No (6) Renal insufficiency Status: Acute Current Visit: No Assessment and Plan for All Diagnoses:: 1. We will switch IV Lasix to p.o. 40 mg twice daily. 2. Continue Plavix and Xarelto both. 3. Patient has LifeVest in the room and in wearing it upon discharge. 4. Patient will stay overnight for additional IV antibiotics and the plan is to discharge home tomorrow. Patient will follow up with us in the office in 2 weeks. At that point we will discuss plans for RALF and cardioversion along with follow-up echocardiogram to reassess her cardiac function. 5. Continue metoprolol 150 twice daily along with digoxin for rate control.
[2017-06-07 12:24] LABS: POC Glucose,Bedside 366 mg/dL (70-110)
[2017-06-07 12:24] LABS: POC Glucose,Bedside 257 mg/dL (70-110)
--- NOTE | 2017-06-07 12:36 | SW/DCPLANNER ---
Addendum entered by Kari Aguirre 06/07/17 12:43: Spoke with Magi at [facility] and she has stated that they are fixing to deliver portable O2 to [facility] and they are aware that patient will not be discharging till tomorrow. I have also spoke with patients daughter in room while patient was sleeping to inform her of situation. Original Note: Patient information has been faxed to [facility] for home O2 due to patients Room Air sat being 88%. Patient is expected to discharge home tomorrow 06/08/17.
--- NOTE | 2017-06-07 14:27 | DIET.NUTRFU ---
Pt stated that she has been eating well with a PO intake >75% at most meals. Pt stated that she was interested in learning what she should be eating for her cardiac and diabetic diet. Offered pt verbal and written education for heart health, diabetic diet and pt declined verbal education. Offered to review written education with pt multiple times or to leave written education with pt so she could read and let me know what questions she had but she insisted that nutrition education be placed in her discharge information. Multiple electronic and paper education materials have been added to pt discharge packet. Contact number has been provided to pt and she has been instructed to call with any questions. Recommend pt receive referral for outpatient nutrition education. Blood glucose has improving with POC of 248, 216.
--- NOTE | 2017-06-07 14:56 | PC.NURSE ---
PT WAS SLEEPING DURING CARE ROUNDS. FAMILY WAS IN THE ROOM AND THEY STATED THEY HAVE BEEN OKAY WITH EVERYTHING AND DID NOT NEED TO DISCUSS ANYTHING ABOUT PT'S CARE
[2017-06-07 16:57] LABS: POC Glucose,Bedside 208 mg/dL (70-110)
--- NOTE | 2017-06-07 18:31 | PC.NURSE ---
PATIENT HAS BEEN WALKING IN HALLS TODAY, SITTING IN CHAIR, AND RESTING IN BED. HER LUNG SOUNDS HAVE IMPROVED BUT NOW SHE IS VERY CONGESTED AND HAVING TROUBLE BREATHING THROUGH HER NOSE. HUMIDIFICATION IS CURRENTLY ON 2LNC. DENIES PAIN AT THIS TIME. A&OX3. CALL LIGHT WITHIN REACH WILL CONTINUE TO MONITOR
--- NOTE | 2017-06-07 19:05 | PC.NURSE ---
REPORT GIVEN TO KELLEN CARDENAS RN
[2017-06-08] VITALS (14 sets, daily range): BP systolic 90–142; BP diastolic 52–91; PULSE 81–124; RESP 20–22; TEMP 36.4–37.1; O2SAT 92–95
[2017-06-08 01:04] LABS: POC Glucose,Bedside 230 mg/dL (70-110)
--- NOTE | 2017-06-08 05:38 | PC.NURSE ---
PT RESTED WELL THIS SHIFT. 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 PT RA THIS AM WAS 89%, O2 BACK IN PLACE. PT REMAINS UNCONTROLLED AFIB ON HEART MONITOR. OTHER VSS. PT HAS HAD A 4KG INCREASE IN WEIGHT SINCE LAST WEIGHED 06/07/17. NO OTHER CONCERNS AT THIS TIME. WILL CONTINUE TO MONITOR.
[2017-06-08 05:54] LABS: Basophils % 0.1 % (0.1-2.0); Eosinophils # 0.3 K/mm3 (0.0-0.4); Eosinophils % 2.4 % (0.1-12.0); Hematocrit 42.1 % (37.0-47.0); Hemoglobin 13.3 g/dL (12.2-16.2); Lymphocytes # 1.9 K/mm3 (0.7-4.5); Lymphocytes % 15.7 K/mm3 (10-50); Mean Corpuscular HGB Conc 31.7 g/dL (31.8-35.4); Mean Corpuscular Hemoglobin 28.4 pg (27.0-31.2); Mean Corpuscular Volume 89.6 fl (81-99); Mean Platelet Volume 8.1 fl (7.4-10.4); Monocytes # 0.7 K/mm3 (0.1-1.0); Monocytes % 5.4 % (1.7-9.3); Neutrophils # 9.4 K/mm3 (1.8-7.8); Neutrophils % 76.4 % (37.0-80.0); Platelet Count 227 K/mm3 (142-424); Red Blood Count 4.69 M/mm3 (4.20-5.40); Red Cell Distribution Width 14.8 % (11.5-17.5); White Blood Count 12.3 K/mm3 (4.8-10.8)
[2017-06-08 06:23] LABS: POC Glucose,Bedside 228 mg/dL (70-110)
[2017-06-08 07:03] LABS: Alanine Aminotransferase 60 U/L (12-78); Albumin Level 2.5 gm/dL (3.4-5.0); Albumin/Globulin Ratio 0.7 (1.1-1.8); Alkaline Phosphatase 95 U/L (46-116); Anion Gap 8.8 mEq/L (5-15); Aspartate Amino Transferase 22 U/L (15-37); Bilirubin,Total 0.6 mg/dL (0.2-1.0); Blood Urea Nitrogen 26 mg/dL (7-18); Calcium 8.2 mg/dL (8.5-10.1); Carbon Dioxide 30 mmol/L (21.0-32.0); Chloride 100 mmol/L (98-107); Creatinine Clearance Estimated 94 mL/min (0-300); Creatinine,Serum 1.06 mg/dL (0.55-1.02); Estimated Glomerular Filt Rate 53 ml/min (>60); GFR (African American) 64 ML/MIN (>60); Globulin 3.4 gm/dl (1.3-3.2); Glucose 242 mg/dL (74-106); Potassium 4.8 mmoL/L (3.5-5.1); Sodium 134 mmol/L (136-145); Total Protein,Serum 5.9 gm/dL (6.4-8.2)
--- NOTE | 2017-06-08 07:25 | PC.NURSE ---
REPORT GIVEN TO Katie RENO. RN
--- NOTE | 2017-06-08 08:35 | HMH.ACPN2 ---
Internal Medicine - PN: Subj *Date: 06/08/17 *Time: 08:35 Interval history: pt with sob and feeling of anxiety - no chest pain - on day 3 of abx -no fever Exam Vital signs and Labs for Last 24 Hours: Temp Pulse Resp BP Pulse Ox 98.3 F 115 H 22 98/52 94 L 06/08/17 07:48 06/08/17 07:48 06/08/17 07:48 06/08/17 07:48 06/08/17 07:48 Laboratory Results - last 24 hr 06/07/17 06:09: POC Glucose 257 06/07/17 08:14: B-Natriuretic Peptide 226 H 06/07/17 11:44: POC Glucose 366 06/07/17 16:31: POC Glucose 208 06/07/17 20:20: POC Glucose 230 06/08/17 05:40: WBC 12.3 H, RBC 4.69, Hgb 13.3, Hct 42.1, MCV 89.6, MCH 28.4, MCHC 31.7 L, RDW 14.8, Plt Count 227, MPV 8.1, Neut % (Auto) 76.4, Lymph % (Auto) 15.7, [place] % (Auto) 5.4, Eos % (Auto) 2.4, Baso % (Auto) 0.1, Neut # (Auto) 9.4 H, Lymph # (Auto) 1.9, [place] # (Auto) 0.7, Eos # (Auto) 0.3, Baso # (Auto) 0.0 06/08/17 05:40: Sodium 134 L, Potassium 4.8, Chloride 100, Carbon Dioxide 30, Anion Gap 8.8, BUN 26 H, Creatinine 1.06 H, Estimated Creat Clear 94, Estimated GFR 53 L, Est GFR ( Amer) 64, Glucose 242 H, Calcium 8.2 L, Total Bilirubin 0.6, AST 22 D, ALT 60, Alkaline Phosphatase 95, Total Protein 5.9 L, Albumin 2.5 L, Globulin 3.4 H, Albumin/Globulin Ratio 0.7 L 06/08/17 06:00: POC Glucose 228 I & O for Last 24 hours: Intake & Output 06/05/17 06/06/17 06/07/17 06/08/17 11:59 11:59 11:59 11:59 Intake Total 1320 / 1320 854 / 854 1300 / 1300 1450 / 1450 Output Total 4800 / 4800 1950 / 1950 3100 / 3100 800 / 800 Balance -3480 / -3480 -1096 / -1096 -1800 / -1800 650 / 650 Weight 229 lb 2 oz 227 lb 2 oz 219 lb 7 oz 227 lb 6 oz Microbiology Reports for the Last 24 Hours: Microbiology 06/06/17 14:00 Sputum - Expectorated Sputum Gram Stain - Final 06/06/17 14:00 Sputum - Expectorated Sputum Sputum Culture - Final Normal Respiratory Mattie - Constitutional no acute distress - *Routine HEENT Exam Head: Present: normocephalic Eye: Present: EOMI, PERRL ENT: Present: mucous membranes dry - *Routine Neck Exam Present: supple - *Routine Respiratory Exam Present: decreased breath sounds. Absent: respiratory distress - *Routine Cardiovascular Exam Present: murmur, irregular rhythm - *Routine Abdominal Exam Present: soft - *Routine Extremities Exam Absent: calf tenderness - *Routine Skin Exam Present: intact - *Routine Neurological Exam Present: alert, oriented X3, CN II-XII intact - Routine Psychiatric Exam Present: normal affect Assessment and Plan (1) Atrial fibrillation with rapid ventricular response Current visit: Yes Status: Acute Category: Medical Code(s): I48.91 - Unspecified atrial fibrillation (2) CHF (congestive heart failure), NYHA class IV Current visit: Yes Status: Acute Category: Medical Code(s): I50.9 - Heart failure, unspecified (3) Coronary artery disease Current visit: Yes Status: Acute Category: Medical Code(s): I25.10 - Atherosclerotic heart disease of [place] coronary artery without angina pectoris (4) Acute exacerbation of chronic obstructive airways disease Current visit: Yes Status: Acute Category: Medical Code(s): J44.1 - Chronic obstructive pulmonary disease with (acute) exacerbation (5) Diabetes mellitus Current visit: No Status: Acute Qualifiers: Diabetes mellitus type: type 2 Diabetes mellitus care home insulin use: unspecified care home insulin use status Diabetes mellitus complication status: with unspecified complications Qualified Code(s): E11.8 - Type 2 diabetes mellitus with unspecified complications Category: Medical Code(s): E11.9 - Type 2 diabetes mellitus without complications (6) Renal insufficiency Current visit: No Status: Acute Category: Medical Code(s): N28.9 - Disorder of kidney and ureter, unspecified (7) Anxiety Current visit: Yes Status: Acute Category: Medical Code(s): F41.9 -
--- NOTE | 2017-06-08 08:38 | P.PN_ITS ---
Internal Medicine - PN: Subj *Date: 06/08/17 *Time: 08:35 Interval history: pt with sob and feeling of anxiety - no chest pain - on day 3 of abx -no fever Exam Vital signs and Labs for Last 24 Hours: Temp Pulse Resp BP Pulse Ox 98.3 F 115 H 22 98/52 94 L 06/08/17 07:48 06/08/17 07:48 06/08/17 07:48 06/08/17 07:48 06/08/17 07:48 Laboratory Results - last 24 hr 06/07/17 06:09: POC Glucose 257 06/07/17 08:14: B-Natriuretic Peptide 226 H 06/07/17 11:44: POC Glucose 366 06/07/17 16:31: POC Glucose 208 06/07/17 20:20: POC Glucose 230 06/08/17 05:40: WBC 12.3 H, RBC 4.69, Hgb 13.3, Hct 42.1, MCV 89.6, MCH 28.4, MCHC 31.7 L, RDW 14.8, Plt Count 227, MPV 8.1, Neut % (Auto) 76.4, Lymph % (Auto ) 15.7, [place] % (Auto) 5.4, Eos % (Auto) 2.4, Baso % (Auto) 0.1, Neut # (Auto) 9.4 H, Lymph # (Auto) 1.9, [place] # (Auto) 0.7, Eos # (Auto) 0.3, Baso # (Auto) 0.0 06/08/17 05:40: Sodium 134 L, Potassium 4.8, Chloride 100, Carbon Dioxide 30, Anion Gap 8.8, BUN 26 H, Creatinine 1.06 H, Estimated Creat Clear 94, Estimated GFR 53 L, Est GFR ( Amer) 64, Glucose 242 H, Calcium 8.2 L, Total Bilirubin 0.6, AST 22 D, ALT 60, Alkaline Phosphatase 95, Total Protein 5.9 L, Albumin 2.5 L, Globulin 3.4 H, Albumin/Globulin Ratio 0.7 L 06/08/17 06:00: POC Glucose 228 I & O for Last 24 hours: Intake & Output 06/05/17 06/06/17 06/07/17 06/08/17 11:59 11:59 11:59 11:59 Intake Total 1320 / 1320 854 / 854 1300 / 1300 1450 / 1450 Output Total 4800 / 4800 1950 / 1950 3100 / 3100 800 / 800 Balance -3480 / -3480 -1096 / -1096 -1800 / -1800 650 / 650 Weight 229 lb 2 oz 227 lb 2 oz 219 lb 7 oz 227 lb 6 oz Microbiology Reports for the Last 24 Hours: Microbiology 06/06/17 14:00 Sputum - Expectorated Sputum Gram Stain - Final 06/06/17 14:00 Sputum - Expectorated Sputum Sputum Culture - Final Normal Respiratory Mattie - Constitutional no acute distress - *Routine HEENT Exam Head: Present: normocephalic Eye: Present: EOMI, PERRL ENT: Present: mucous membranes dry - *Routine Neck Exam Present: supple - *Routine Respiratory Exam Present: decreased breath sounds. Absent: respiratory distress - *Routine Cardiovascular Exam Present: murmur, irregular rhythm - *Routine Abdominal Exam Present: soft - *Routine Extremities Exam Absent: calf tenderness - *Routine Skin Exam Present: intact - *Routine Neurological Exam Present: alert, oriented X3, CN II-XII intact - Routine Psychiatric Exam Present: normal affect Assessment and Plan (1) Atrial fibrillation with rapid ventricular response Current visit: Yes Status: Acute Category: Medical Code(s): I48.91 - Unspecified atrial fibrillation (2) CHF (congestive heart failure), NYHA class IV Current visit: Yes Status: Acute Category: Medical Code(s): I50.9 - Heart failure, unspecified (3) Coronary artery disease Current visit: Yes Status: Acute Category: Medical Code(s): I25.10 - Atherosclerotic heart disease of [place] coronary artery without angina pectoris (4) Acute exacerbation of chronic obstructive airways disease Current visit: Yes Status: Acute Category: Medical Code(s): J44.1 - Chronic obstructive pulmonary disease with (acute) exacerbation (5) Diabetes mellitus Current visit: No Status: Acute Qualifiers: Diabetes mellitus type: type 2 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
[2017-06-08 11:44] LABS: POC Glucose,Bedside 202 mg/dL (70-110)
[2017-06-08 11:44] LABS: POC Glucose,Bedside 198 mg/dL (70-110)
[2017-06-08 15:20] LABS: ABG HCO3 31.7 mmhg (22.0-26.0); ABG Oxygen Saturation 96 % (90-100); ABG PCO2 44.8 mmhg (35.0-45.0); ABG PH 7.47 mmol/L (7.35-7.45); ABG PO2 71.6 mmhg (80-100); ABG TCO2 33.1 mmhg (23-27)
[2017-06-08 15:21] LABS: Allen's Test Patient Unable; Oxygen ROOM AIR %; Source Left Radial
[2017-06-08 16:50] LABS: POC Glucose,Bedside 226 mg/dL (70-110)
--- NOTE | 2017-06-08 17:29 | PC.NURSE ---
PATIENT IS SITTING IN THE CHAIR AT THIS TIME. SHE STATES THAT SHE IS FEELING BETTER THIS EVENING. I HELD HER GABAPENTIN AT 1300 BECAUSE SHE WAS HAVING INCREASED DROWSINESS AND CONFUSION. THIS HAS IMPROVED SOME THIS EVENING. SHE STATES THAT AT HOME SHE DOESN'T TAKE THE AFTERNOON DOSE UNLESS SHE IS IN A LOT OF PAIN BECAUSE OF THIS REASON. LUNGS ARE CTA. DENIES PAIN AT THIS TIME. PATIENT REMAINS UNCONTROLLED A.FIB ON TELEMETRY. CALL LIGHT WITHIN REACH WILL CONTINUE TO MONITOR
--- NOTE | 2017-06-08 19:01 | PC.NURSE ---
REPORT GIVEN TO KELLEN CARDENAS RN
[2017-06-08 21:24] LABS: POC Glucose,Bedside 166 mg/dL (70-110)
[2017-06-09] VITALS: BP 103/64; PULSE 100; PULSE 93; RESP 20; TEMP 36.8; O2SAT 92
--- NOTE | 2017-06-09 02:36 | PC.NURSE ---
PT RESTING IN BED AT THIS TIME. HAS AMBULATED TO BATHROOM MULTIPLE TIMES T/O NIGHT. HAS BEEN INCONTINENT ALSO AT TIMES. PT IS CURRENTLY ON 2L NC WITH O2 SAT OF 93% SHE HAS C/O SOA AND FATIGUE AFTER AMBULATION. LUNGS NOTED TO BE DIMINISHED T/O WITH SCATTERED RHONCHI. PT STATED SHE HOPES SHE WILL START FEELING BETTER SOON. PT REMAINS IN UNCONTROLLED AFIB ON TELEMETRY. NO OTHER CONCERNS AT THIS TIME. WILL CONTINUE TO MONITOR.
[2017-06-09 03:10] VITALS: O2SAT 91
[2017-06-09 04:00] VITALS: BP 105/69; PULSE 100; PULSE 111; RESP 20; TEMP 36.9; O2SAT 94
[2017-06-09 06:30] VITALS: PULSE 107; PULSE 111; O2SAT 93
--- NOTE | 2017-06-09 07:18 | PC.NURSE ---
REPORT HAND OFF TO PARIS RENO
[2017-06-09 08:00] VITALS: BP 107/73; PULSE 106; PULSE 112; PULSE 120; RESP 22; TEMP 37.2; O2SAT 92
--- NOTE | 2017-06-09 08:16 | HMH.DCSUM ---
General - General Admission date: 06/01/17 Discharge date: 06/09/17 HPI HPI: 56-year-old female presented to the ER with a 2 day history of shortness of breath, cough productive with yellow sputum, head congestion, nausea and vomiting. Patient reports history of COPD and uses nebulizer treatments at home. Patient reports that she has had some chest pain that increases with coughing. She says she has a history of coronary artery disease and stents. She arrived in the ER and rapid atrial fib atrial fibrillation. She does not recall being in atrial fibrillation in the past, but previous EKGs in December 2014 showed atrial fibrillation. Admitted with IV antibiotics and cardiac workup. Hospital Course Hospital Course: this wf had slow but progressive improvement with her resp and card sx- she was seen by card -[place] for 15-20 yrs A. echocardiogram, 12/2014, normal LV size and thickness with EF of 45-55 percent due to atrial fibrillation. LEFT atrial size was normal. Mild valvular heart disease. B. Echocardiogram 07/2016, mild left atrial enlargement at 4.6 cm with normal LV size. LVEF 50-55% with no regional wall motion abnormality. Grade 1 diastolic dysfunction noted. Mild MR and TR noted. 2. Diabetes, treated for 3 yrs A. CKD, stage 3-4 3. Right breast mastectomy for Cancer with chemo and radiation at , approx [phone]. A. right arm lymphedema 4. CAD A. NSTEMI, 12/2014 B. TIM X 2 to RCA, 12/2014. On DAPT since then. 5. Obesity 6. Tobacco use, started age 10, 0.5-1 ppd, continued A. Chronic obstructive pulmonary disease and asthma 7. Hyperlipidemia, on statin. 8. FH of cancer A. Father in his mid 30's with cancer, Mother in her 40's with bone cancer 9. History of atrial fibrillation. Patient has been in sinus rhythm at all visits since December 2014 A. CHADS-VASC score is at least 4, 01/2016, but will not start anticoagulation at this time due to DAPT and uncontrolled BP. 10. Obstructive sleep apnea, 09/2016, with recommendation for AutoPap trial. AHI index was 19.6 with a respiratory disturbance index of 29.2. 13 obstructive apneas and one central apnea noted along with 80 hypopneas. History of present illness: 56-year-old white female with known history of COPD, paroxysmal atrial fibrillation and coronary artery disease with coronary stenting in 2015 presented to the emergency department for recurrent shortness of breath. Patient relates a 1 month history of recurrent increasing episodes of shortness of breath for which she has been in the emergency department and her family doctor's office several times with only transient improvement. Patient shortness of breath was so bad that she quit smoking 4 days ago. She was seen in the emergency department with evidence of congestive heart failure on chest x-ray and elevated BNP and admitted for further evaluation. She was noted to be in atrial fib relation with a rapid ventricular response on admission and was started on IV Cardizem. Patient has had some improvement in her shortness of breath and heart rate control. Cardiology consulted for evaluation and recommendations. Patient was seen by Dr. Jennings yesterday. pt with dev of cap which is addictive to her copd-onsolidation has developed in the left lower lobe consistent with pneumonia with small effusion. Patchy density also present in the right lower lobe consistent with pneumonia. Surgical clips in the right axilla. Borderline cardiomegaly without failure. No acute bony anomalies. IMPRESSION: Bilateral lower lobe pneumonia with left-sided effusion pt with meds changed and has been doing better and will have more card eval in past and has abn echo -e will switch IV Lasix to p.o. 40 mg twice daily. 2. Continue Plavix and Xarelto both. 3. Patient has LifeVest in the room and in wearing it upon discharge. 4. Patient will stay overnight for additional IV antibiotics and the plan is to discharge home tomorrow. Patient will fol
[2017-06-09 08:39] VITALS: PULSE 120
--- NOTE | 2017-06-09 10:58 | PC.NURSE ---
PATIENT AND HER SON WERE EDUCATED FOR 45 MINUTES ON LOW SODIUM DIET, NEW MEDICATIONS, MEDICATION CHANGES, WHEN TO CALL , AND WHEN TO RETURN TO THE HOSPITAL. SHE WAS GIVEN A SCALE AND TOLD TO WEIGH HERSELF EVERY AM AFTER URINATING AND TO REPORT A WEIGHT GAIN 3+ LBS TO DR VOGT OFFICE BY PHONE. PATIENT AND SON WERE ALSO SHOWN HOW TO USE HER HOME O2 TANK AND RECOMMENDED TO SLEEP IN AN INCLINED POSITION IF POSSIBLE. PATIENT AND SON VERBALIZED UNDERSTANDING OF EDUCATION.
[2017-06-09 16:40] LABS: POC Glucose,Bedside 181 mg/dL (70-110)
--- NOTE | 2017-06-10 15:15 | SW/DCPLANNER ---
Addendum entered by Kari Aguirre 06/10/17 16:51: I have called and spoke with patients son regarding being set up with home health....son stated that [facility] has already contacted him this afternoon. Original Note: Order has been placed for patient to have home health services for shelter eval. Patient information has been faxed to [facility] and I have spoke with Harm[facility] to confirm patient information has been received and they will begin services for this patient tomorrow 06/11/17. Patient discharged home on Saturday06/08/17.
--- NOTE | 2017-06-11 15:12 | SW/DCPLANNER ---
[facility]....Kinjal ([facility] nurse) has stated that after her initial 30 minute visit the patient felt as if home health is NOT necessary at this time....home health services have been discontinued at this time.
== END 2017-06-09 11:10 | disposition home or self-care (01) | DRG 308 ==
LOC: ER 22:16 → 2ND 06-01 00:35 → ICU 06-01 19:12 → 2ND 06-03 17:01
PROVIDERS: Internal Medicine Cardiovascular Disease; Physician Assistant; Admitting Provider Family Medicine; Emergency Provider Emergency Medicine; Family Provider Family Medicine; PCP Nurse Practitioner Family; Visit Provider Emergency Medicine
DX: I48.0 Paroxysmal atrial fibrillation (principal); J18.9 Pneumonia, unspecified organism; I13.0 Hypertensive heart and chronic kidney disease with heart failure and stage 1 through stage 4 chronic kidney disease, or unspecified chronic kidney disease; E11.22 Type 2 diabetes mellitus with diabetic chronic kidney disease; I50.32 Chronic diastolic (congestive) heart failure; I42.9 Cardiomyopathy, unspecified; J44.1 Chronic obstructive pulmonary disease with (acute) exacerbation; I25.2 Old myocardial infarction; I25.10 Atherosclerotic heart disease of native coronary artery without angina pectoris; Z95.5 Presence of coronary angioplasty implant and graft; N18.3 Chronic kidney disease, stage 3 (moderate); Z72.0 Tobacco use
CPT/HCPCS: 36415; 71046; 80048; 80053; 82550; 82553; 82803; 82962; 83605; 83880; 84484; 85007; 85025; 87040; 87070; 87205; 93005; 93306; 93312; 94640; 94760; 94761; 96366; 96367; 96374; 96375; 99284; 99406; J0456; J1956; J2405

== ENCOUNTER → 2017-08-09 13:42 | Outpatient (CLI) | payer OTHER, SELFPAY ==
[2017-08-09 14:17] LABS: Basophils # 0.1 K/mm3 (0-0.2); Basophils % 0.7 % (0.1-2.0); Eosinophils # 0.2 K/mm3 (0.0-0.4); Eosinophils % 1.5 % (0.1-12.0); Hematocrit 53.9 % (37.0-47.0); Hemoglobin 16.3 g/dL (12.2-16.2); Lymphocytes # 2.2 K/mm3 (0.7-4.5); Lymphocytes % 17.9 K/mm3 (10-50); Mean Corpuscular HGB Conc 30.2 g/dL (31.8-35.4); Mean Corpuscular Hemoglobin 27.5 pg (27.0-31.2); Mean Corpuscular Volume 91.3 fl (81-99); Mean Platelet Volume 7.7 fl (7.4-10.4); Monocytes # 0.6 K/mm3 (0.1-1.0); Monocytes % 5.2 % (1.7-9.3); Neutrophils % 74.6 % (37.0-80.0); Platelet Count 383 K/mm3 (142-424); Red Cell Distribution Width 15.1 % (11.5-17.5); White Blood Count 12.1 K/mm3 (4.8-10.8)
[2017-08-09 16:19] LABS: Alanine Aminotransferase 19 U/L (12-78); Albumin Level 3.4 gm/dL (3.4-5.0); Alkaline Phosphatase 164 U/L (46-116); Aspartate Amino Transferase 15 U/L (15-37); Bilirubin,Direct 0.2 mg/dL (0.0-0.2); Bilirubin,Indirect 0.6 mg/dL (0.0-0.9); Bilirubin,Total 0.8 mg/dL (0.2-1.0); Total Protein,Serum 7.1 gm/dL (6.4-8.2)
[2017-08-13 15:55] LABS: Vitamin D 25 Hydroxy 13.8 ng/mL (30.0-100.0)
[2017-08-13 15:57] LABS: Parathyroid Hormone Intact 121 pg/mL (15-65)
== END ==
PROVIDERS: Visit Provider Internal Medicine
DX: N18.3 Chronic kidney disease, stage 3 (moderate) (principal)
CPT/HCPCS: 36415; 80076; 82652; 83970; 85025

== ENCOUNTER → 2017-08-21 13:06 | Outpatient (REF) | payer OTHER, SELFPAY ==
[2017-08-21 19:29] LABS: Amphetamine/Metha Screen,Urine Negative ng/mL (<1000); Barbiturates Screen,Urine Negative ng/mL (<200); Benzodiazepines Screen,Urine Negative ng/mL (200); Cannabinoid Screen,Urine Negative ng/mL (<50); Cocaine Screen,Urine Negative ng/g (<300); Methadone Screen,Urine Negative ng/mL (<300); Opiate Screen,Urine Negative ng/mL (<300); Phencyclidine Screen,Urine Negative ng/mL (<25)
== END ==
LOC: LAB 13:06
PROVIDERS: Visit Provider Nurse Practitioner Family
DX: Z79.899 Other long term (current) drug therapy (principal)
CPT/HCPCS: 80305

== ENCOUNTER → 2017-08-22 15:02 | Outpatient (POV) | payer OTHER, SELFPAY | PROVIDERS: Family Provider Family Medicine; PCP Nurse Practitioner Family; Visit Provider Internal Medicine Nephrology | DX: Z00.00 Encounter for general adult medical examination without abnormal findings (principal) ==

== ENCOUNTER 2017-10-26 21:00 | Observation (INO) ==
[2017-10-26 21:32] LABS: Basophils # 0.1 K/mm3 (0-0.2); Basophils % 0.7 % (0.1-2.0); Eosinophils # 0.3 K/mm3 (0.0-0.4); Eosinophils % 2.6 % (0.1-12.0); Hematocrit 45.5 % (37.0-47.0); Hemoglobin 14.9 g/dL (12.2-16.2); Lymphocytes % 28.7 K/mm3 (10-50); Mean Corpuscular HGB Conc 32.7 g/dL (31.8-35.4); Mean Corpuscular Hemoglobin 27.9 pg (27.0-31.2); Mean Corpuscular Volume 85.3 fl (81-99); Mean Platelet Volume 7.5 fl (7.4-10.4); Monocytes # 0.5 K/mm3 (0.1-1.0); Neutrophils # 6.5 K/mm3 (1.8-7.8); Neutrophils % 62.9 % (37.0-80.0); Platelet Count 306 K/mm3 (142-424); Red Blood Count 5.33 M/mm3 (4.20-5.40); White Blood Count 10.3 K/mm3 (4.8-10.8)
[2017-10-26 21:40] LABS: ABG HCO3 24.5 mmhg (22.0-26.0); ABG Oxygen Saturation 92 % (90-100); ABG PCO2 38.5 mmhg (35.0-45.0); ABG PH 7.42 mmol/L (7.35-7.45); ABG PO2 60.8 mmhg (80-100); ABG TCO2 25.6 mmhg (23-27)
[2017-10-26 21:42] LABS: Anion Gap 9.7 mEq/L (5-15); Calcium 9.5 mg/dL (8.5-10.1); Potassium 4.7 mmoL/L (3.5-5.1)
--- NOTE | 2017-10-26 22:16 | Emergency Department Note ---
ED Disposition Clinical Impression: Acute exacerbation of chronic obstructive airways disease, Renal insufficiency , Bronchitis, Overweight Chest pain Qualifiers: Chest pain type: unspecified Qualified Code(s): R07.9 - Chest pain, unspecified Diabetes mellitus Qualifiers: Diabetes mellitus type: type 1 Diabetes mellitus complication status: with unspecified complications Qualified Code(s): E10.8 - Type 1 diabetes mellitus with unspecified complications Disposition: Admitted as Observation Condition on Discharge: Good Referrals: Madiha Villarreal APRN [Primary Care Provider] - - Critical Care Critical Care Time: No Attestation: On 10/26/17, the high probability of a clinically significant, sudden or life threatening deterioration of the following system(s) required my full and direct attention, intervention and personal management. The time I documented below is in addition to time spent performing reported procedures but includes the following listed in this critical care notation. Medical Decision Making - Medical Records Medical records reviewed: Yes: I reviewed the patient's medical records. - Gianfranco Inquiry Pt receiving controlled substance: No Vital Signs: 10/26/17 21:01 10/26/17 21:42 Temperature 97.6 F Temperature Source Oral Pulse Rate [Right Radial] 88 90 Respiratory Rate 20 18 Blood Pressure [Right Arm] 105/50 105/75 Blood Pressure Mean [Right Arm] 68 85 Blood Pressure Source [Right Arm] Automatic Cuff Manual Cuff/ Auscultation 02 Sat by Pulse Oximetry 85 L 94 L Oxygen Delivery Method Nasal Cannula Nasal Cannula Oxygen Flow Rate (LPM) 2 3 - Lab Data Lab results reviewed: Yes: I reviewed the patient's lab results. Lab Results 10/26/17 21:14: WBC 10.3, RBC 5.33, Hgb 14.9, Hct 45.5, MCV 85.3, MCH 27.9, MCHC 32.7, RDW 14.0, Plt Count 306, MPV 7.5, Neut % (Auto) 62.9, Lymph % (Auto) 28.7, [place] % (Auto) 5.0, Eos % (Auto) 2.6, Baso % (Auto) 0.7, Neut # (Auto) 6.5 , Lymph # (Auto) 3.0, [place] # (Auto) 0.5, Eos # (Auto) 0.3, Baso # (Auto) 0.1 10/26/17 21:14: Troponin I < 0.02 10/26/17 21:14: Sodium 131 L, Potassium 4.7, Chloride 96 L, Carbon Dioxide 30, Anion Gap 9.7, BUN 40 H, Creatinine 2.10 H, Estimated Creat Clear 42, Estimated GFR 24 L, Est GFR ( Amer) 29 L, Glucose 417 H*, Calcium 9.5 10/26/17 21:14: Lactate 2.3 H 10/26/17 21:39: ABG pH 7.42, ABG pCO2 38.5, ABG pO2 60.8 L, ABG HCO3 24.5, ABG Total CO2 25.6, ABG O2 Saturation 92, ABG Base Excess 0.0 Result diagrams: 10/26/17 21:14 10/26/17 21:14 Orders (Tests/Meds): ED MEDICATIONS Generic Name Dose Route Start Last Admin Trade Name Freq PRN Reason Stop Dose Admin Sodium Chloride 1,000 mls @ 999 mls/hr 10/26/17 21:45 10/26/17 21:38 Sod Chlor 0.9% 1000ml Bag IV 10/26/17 22:45 999 mls/hr .Q1H1M ANCA Administration Sodium Chloride 3 ml 10/26/17 21:18 Sodium Chloride 3% 15ml Neb IH 11/25/17 21:17 ONCE PRN INDUCE SPUTUM COLLECTION Discontinued Medications Generic Name Dose Route Start Last Admin Trade Name Freq PRN Reason Stop Dose Admin Albuterol/Ipratropium 3 ml 10/26/17 21:10 10/26/17 21:17 Duoneb 3ml Neb IH 10/26/17 21:11 3 ml ONCE ONE Administration Aspirin 243 mg 10/26/17 21:14 10/26/17 21:17 Aspirin 81mg Chewable Tablet PO 10/26/17 21:15 243 mg ONCE ONE Administration Methylprednisolone Sodium Succinate 125 mg 10/26/17 21:11 10/26/17 21:17 Solu-Medrol 125mg/2ml Vial IV 10/26/17 21:12 125 mg ONCE ONE Administration ORDERS Category Date Time Status CXR 2 view (NOT portable) [XR chest 2V] Stat Exams 10/26/17 21:09 Taken Blood Culture Stat Micro 10/26/17 21:14 Received Sputum Culture & Gram Stain Stat Micro 10/26/17 22:00 Received Arterial Blood Gas Stat RT 10/26/17 21:18 Ordered - Radiology Data #1 Image(s): Chest Image Reviewed: Yes I reviewed the patient's radiology image Preliminary Findings: Abnormal - ECG Data Tracing #1 I reviewed this ECG and interpreted as documented below: Arrhythmias present: afib Ischemic changes: non-specific ST-T wave changes ECG compared to prior tracings: this ECG reveals significant changes Resp/SOB HPI - General Chief Complaint: Chest Pain Stated Complaint: chest pain Time Seen by Provider: 10/26/17 21:20 Mode of Arrival: Ambulatory Limitations: No Limitations Description of Symptoms (Recalled from ER Triage Doc. by RN): Pt reports she feels like an elephant sitting on her chest for 3 day. The pressure got worse today with a productive cough, and difficulty breating. - History of Present Illness wf with 3 day hx of ant chest pressure with assoc sob and prod cough - MD Complaint: shortness of breath, cough, chest pain Onset (ago): day(s) Context: elevated blood glucose Severity: moderate Consistency/Duration: constant Known history of: COPD, congestive heart failure, diabetes Associated symptoms: denies other symptoms Treatment prior to arrival: none - Related Data Home oxygen amount: 2 liters Home Medications Medication Instructions Recorded Confirmed Digoxin [Digoxin 0.125mg Tablet] 125 mcg PO DAILY 10/26/17 10/26/17 Gabapentin [Neurontin 800mg Tab] 800 mg PO TID 10/26/17 10/26/17 Insulin NPH Hum/Reg Insulin Hm 10 unit SUB-Q BID 10/26/17 10/26/17 [Humulin 70/30 Kwikpen] Lisinopril [Prinivil 10mg Tablet] 10 mg PO DAILY 10/26/17 10/26/17 Metoprolol Tartrate [Lopressor 150 mg PO BID 10/26/17 10/26/17 50mg tablet] Nystatin 1 applic TOPICAL NEEDED PRN 10/26/17 10/26/17 Rivaroxaban [Xarelto 15mg tablet] 15 mg PO DAILY 10/26/17 10/26/17 Spironolactone [Spironolactone 25 mg PO BID 10/26/17 10/26/17 25mg Tab] pen needle, diabetic 32 gauge x 0 1000units TOPICAL .MEDSUPPLY 10/26/17 10/26/1732" Previous Rx's Medication Instructions Recorded Nicotine [Nicoderm 21mg/24hr 21 mg TD DAILYP PRN #30 patch.td24 06/09/17 patch] albuterol sulfate HFA 90 1 puff INHALATION Q6H #6.7 g 08/06/17 mcg/actuation aerosol inhaler amlodipine 10 mg tablet 10 mg PO DAILY #90 tab 08/21/17 aspirin 81 mg tablet,delayed 81 mg PO QDAY #30 tab 08/21/17 release atorvastatin 80 mg tablet 80 mg PO DAILY #30 tab 08/21/17 clopidogrel 75 mg tablet 75 mg PO DAILY #30 tab 08/21/17 furosemide 40 mg tablet 40 mg PO BID #60 tab 08/21/17 isosorbide mononitrate ER 30 mg 30 mg PO DAILY #30 tab 08/21/17 tablet,extended release 24 hr pantoprazole 40 mg tablet,delayed 40 mg PO DAILY #30 tab 08/21/17 release cyclobenzaprine 10 mg tablet 10 mg PO Q8H #30 tab 10/04/17 hydroxyzine pamoate 25 mg capsule 25 mg PO QHS PRN #14 cap 10/22/17 Allergies Allergy/AdvReac Type Severity Reaction Status Date / Time oxycodone [From PERCOCET] Allergy Unknown Verified 10/26/17 21:11 [facility] History I have reviewed the patient's past medical history: Yes Medical History: Reports:: Asthma, Cancer, Congestive Heart Failure, Chronic Obstructive Pulmonary Disease (COPD), Diabetes Mellitus Type 1, Diabetes Mellitus Type 2, Gastroesophageal Reflux Disease(GERD), Home Oxygen, Hypertension, Internal Pacemaker, Seizures Denies:: MRSA Other Medical History: Reports: Blood Transfusion Reaction, Chemotherapy, Radiation Therapy Comment: ASthma,COPD, type 1 Diabetes, Heart Disease, CHF, Back pain, Kidney Disease,Arthritis, Hypercholesterolemia Laterality Cases: Right: Breast Biopsy, Mastectomy, Bilateral: Tonsillectomy Other Surgeries: Yes: Cardiac Catheterization (08/05/17 no stenting), Coronary Stent, Pacemaker, Other Amputation: No Fractures: No Comment: patient has a life vest - Social History Smoking Status: Former smoker Tobacco Type: cigarettes # Packs/Day (cigarettes): 1 Alcohol Intake: never Alcohol Intake Frequency:: other Substance Use Type: denies use Occupational Status: disabled Housing: house Household Members: family, children - Psychiatric History Expresses thoughts of harming self/others: None Suicide Plan Description: No Plan Family Hx:: Hypertension, Cancer ROS Obtained: Yes All systems reviewed & no additional complaints - Constitutional Constitutional: Denies fever(s) - Eyes Eyes: Denies change in vision - ENT Ears, Nose, Mouth, and Throat: Denies sore throat - Cardiovascular Cardiovascular: Reports chest pain, Reports dyspnea - Respiratory Respiratory: Yes as per HPI, Yes change in phlegm color, Yes cough, No coughing up blood - Gastrointestinal Gastrointestingal: Denies: abdominal pain - Genitourinary Female Genitourinary: Denies hematuria - Musculoskeletal Musculoskeletal: Denies joint pain, Denies joint swelling - Integumentary/Breasts Skin/Breast: Denies rash - Neurologic Neurologic: Denies seizure-like activity Physical Exam - General General appearance: in no apparent distress - Head Head exam: normocephalic - Eye Eye exam: Present: PERRL, EOMI - ENT ENT exam: Present: mucous membranes dry - Neck Neck exam: Present: trachea midline - Respiratory Respiratory exam: Present: other (bilat rhonchi ). Absent: respiratory distress - Cardiovascular Cardiovascular exam: Present: regular rate, systolic murmur - Abdominal Exam Abdominal exam: Present: soft - Extremities Exam Extremities exam: Absent: calf tenderness - Neurological Exam Neurological exam: Present: alert, oriented X3, CN II-XII intact - Psychiatric Psychiatric exam: Present: normal affect - Skin Skin exam: Absent: rash
[2017-10-27 06:54] LABS: Basophils % 0.2 % (0.1-2.0); Eosinophils % 0.4 % (0.1-12.0); Hematocrit 44.4 % (37.0-47.0); Hemoglobin 14.4 g/dL (12.2-16.2); Mean Corpuscular HGB Conc 32.4 g/dL (31.8-35.4); Mean Corpuscular Hemoglobin 27.6 pg (27.0-31.2); Mean Corpuscular Volume 85.2 fl (81-99); Mean Platelet Volume 7.5 fl (7.4-10.4); Monocytes # 0.2 K/mm3 (0.1-1.0); Monocytes % 2.1 % (1.7-9.3); Neutrophils # 7.4 K/mm3 (1.8-7.8); Neutrophils % 86.4 % (37.0-80.0); Platelet Count 263 K/mm3 (142-424); Red Blood Count 5.21 M/mm3 (4.20-5.40); Red Cell Distribution Width 13.9 % (11.5-17.5); White Blood Count 8.6 K/mm3 (4.8-10.8)
[2017-10-27 07:24] LABS: Lymphocytes % 13 % (10-50); Neutrophils % 76 % (42-76); RBC Morphology Normal; Total Cells Counted 100
[2017-10-27 07:29] LABS: Anion Gap 13.9 mEq/L (5-15); Blood Urea Nitrogen 37 mg/dL (7-18); Calcium 9.2 mg/dL (8.5-10.1); Carbon Dioxide 25 mmol/L (21.0-32.0); Chloride 97 mmol/L (98-107); Potassium 4.9 mmoL/L (3.5-5.1); Sodium 131 mmol/L (136-145)
[2017-10-27 07:31] LABS: Glucose 413 mg/dL (74-106)
--- NOTE | 2017-10-27 09:38 | History & Physical Report ---
*Admission Date: 10/26/17 *Chief complaint: chest pain *History of present illness: this wf with hx of hear disease over the last few days has had chest pain which has been progressive and also has had prod cough and sob with hx of copd - she is iddm and recently stopped tob use - she was seen in the ed and was admitted for treatment and card eval [facility] History I have reviewed the patient's past medical history: Yes Medical History: Reports:: Asthma, Cancer (right mastectomy), Congestive Heart Failure, Chronic Obstructive Pulmonary Disease (COPD), Diabetes Mellitus Type 2 , Gastroesophageal Reflux Disease(GERD), Home Oxygen, Hypertension, Internal Pacemaker, Seizures Denies:: Diabetes Mellitus Type 1, MRSA Other Medical History: Reports: Blood Transfusion Reaction, Chemotherapy, Radiation Therapy Laterality Cases: Right: Breast Biopsy, Mastectomy, Bilateral: Tonsillectomy Other Surgeries: Yes: Cardiac Catheterization (08/05/17 no stenting), Coronary Stent, Pacemaker, Other Amputation: No Fractures: No - *Social History Educational Level: Attended College Smoking Status: Former smoker Tobacco Type: cigarettes # Packs/Day (cigarettes): 1 #Yrs smoked (if former smoker): 40 Smoking End Date: 3 months ago Alcohol Intake: never Alcohol Intake Frequency:: other Substance Use Type: marijuana Last Used Substance: days (ago) Occupational Status: disabled Housing: house Household Members: family, children - Psychiatric History Expresses thoughts of harming self/others: None Suicide Plan Description: No Plan *Family Hx:: Hypertension, Cancer Review of Systems - Review of Systems Review of systems:: pertinent systems reviewed and negative unless documented below - Constitutional Reports weakness - Eyes Denies change in vision - ENT Denies sore throat - *Cardiovascular Reports chest pain, Reports chest pain at rest, Reports shortness of breath - *Respiratory Reports change in phlegm color, Reports cough, Reports shortness of breath - *Gastrointestinal Denies abdominal pain - *Genitourinary Denies blood in urine - *Musculoskeletal Reports joint pain, Denies joint swelling - Integumentary/Breasts Denies rash - *Neurologic Denies seizure-like activity Meds Home Medications Medication Instructions Recorded Confirmed Type Digoxin [Digoxin 0.125mg Tablet] 125 mcg PO DAILY 10/26/17 10/26/17 History Gabapentin [Neurontin 800mg Tab] 800 mg PO TID 10/26/17 10/26/17 History Insulin NPH Hum/Reg Insulin Hm 10 unit SUB-Q BID 10/26/17 10/26/17 History [Humulin 70/30 Kwikpen] Lisinopril [Prinivil 10mg Tablet] 10 mg PO DAILY 10/26/17 10/26/17 History Metoprolol Tartrate [Lopressor 150 mg PO BID 10/26/17 10/26/17 History 50mg tablet] Nystatin 1 applic TOPICAL NEEDED PRN 10/26/17 10/26/17 History Rivaroxaban [Xarelto 15mg tablet] 15 mg PO DAILY 10/26/17 10/26/17 History Spironolactone [Spironolactone 25 mg PO BID 10/26/17 10/26/17 History 25mg Tab] pen needle, diabetic 32 gauge x 0 1000units TOPICAL .MEDSUPPLY 10/26/17 History " Allergies Allergy/AdvReac Type Severity Reaction Status Date / Time oxycodone [From PERCOCET] Allergy Unknown Verified 10/26/17 21:11 Exam Vital signs and Labs for Last 24 Hours: Temp Pulse Resp BP Pulse Ox 98.5 F 134 H 18 142/85 94 L 10/27/17 07:33 10/27/17 09:18 10/27/17 07:33 10/27/17 07:33 10/27/17 08:00 Laboratory Results - last 24 hr 10/26/17 21:14: WBC 10.3, RBC 5.33, Hgb 14.9, Hct 45.5, MCV 85.3, MCH 27.9, MCHC 32.7, RDW 14.0, Plt Count 306, MPV 7.5, Neut % (Auto) 62.9, Lymph % (Auto) 28.7, [place] % (Auto) 5.0, Eos % (Auto) 2.6, Baso % (Auto) 0.7, Neut # (Auto) 6.5 , Lymph # (Auto) 3.0, [place] # (Auto) 0.5, Eos # (Auto) 0.3, Baso # (Auto) 0.1 10/26/17 21:14: Troponin I < 0.02 10/26/17 21:14: Sodium 131 L, Potassium 4.7, Chloride 96 L, Carbon Dioxide 30, Anion Gap 9.7, BUN 40 H, Creatinine 2.10 H, Estimated Creat Clear 42, Estimated GFR 24 L, Est GFR ( Amer) 29 L, Glucose 417 H*, Calcium 9.5 10/26/17 21:14: Lactate 2.3 H 10/26/17 21:14: Digoxin 1.11 L 10/26/17 21:39: ABG pH 7.42, ABG pCO2 38.5, ABG pO2 60.8 L, ABG HCO3 24.5, ABG Total CO2 25.6, ABG O2 Saturation 92, ABG Base Excess 0.0 10/26/17 23:55: Troponin I < 0.02 10/26/17 23:55: Lactate 2.0 10/27/17 00:41: POC Glucose 399 H* 10/27/17 03:05: Troponin I < 0.02 10/27/17 06:23: POC Glucose 443 H* 10/27/17 06:43: WBC 8.6, RBC 5.21, Hgb 14.4, Hct 44.4, MCV 85.2, MCH 27.6, MCHC 32.4, RDW 13.9, Plt Count 263, MPV 7.5, Neut % (Auto) 86.4 H, Lymph % (Auto) 11.0, [place] % (Auto) 2.1, Eos % (Auto) 0.4, Baso % (Auto) 0.2, Neut # (Auto) 7.4 , Lymph # (Auto) 1.0, [place] # (Auto) 0.2, Eos # (Auto) 0.0, Baso # (Auto) 0.0, Total Counted 100, Neutrophils % (Manual) 76, Band Neutrophils % 11.0 H, Lymphocytes % (Manual) 13, Platelet Estimate Normal, RBC Morphology Normal 10/27/17 06:43: Sodium 131 L, Potassium 4.9, Chloride 97 L, Carbon Dioxide 25, Anion Gap 13.9, BUN 37 H, Creatinine 1.80 H, Estimated Creat Clear 51, Estimated GFR 29 L, Est GFR ( Amer) 35 L D, Glucose 413 H*, Calcium 9.2, Troponin I < 0.02 I & O for Last 24 hours: Intake & Output 10/24/17 10/25/17 10/26/17 10/27/17 11:59 11:59 11:59 11:59 Intake Total 486 / 486 Output Total 600 / 600 Balance -114 / -114 Weight 210 lb 4.995 oz Microbiology Reports for the Last 24 Hours: Microbiology 10/26/17 22:00 Sputum - Expectorated Sputum Gram Stain - Final - Constitutional no acute distress, obese - *Routine HEENT Exam Head: Present: normocephalic Eye: Present: EOMI, PERRL ENT: Present: mucous membranes dry - *Routine Neck Exam Present: supple. Absent: JVD - *Routine Respiratory Exam Present: rhonchi, wheezes. Absent: respiratory distress - *Routine Cardiovascular Exam Present: RRR, murmur, S4 - *Routine Abdominal Exam Present: soft - *Routine Extremities Exam Present: edema. Absent: calf tenderness - *Routine Skin Exam Present: intact - *Routine Neurological Exam Present: alert, oriented X3, CN II-XII intact - Routine Psychiatric Exam Present: normal affect H&P: Result - Labs Labs: Short CBC 10/26/17 10/27/17 Range/Units 21:14 06:43 WBC 10.3 8.6 (4.8-10.8) K/mm3 Hgb 14.9 14.4 (12.2-16.2) g/dL Hct 45.5 44.4 (37.0-47.0) % Plt Count 306 263 (142-424) K/mm3 BMP 10/26/17 10/27/17 21:14 06:43 Sodium 131 L 131 L Potassium 4.7 4.9 Chloride 96 L 97 L Carbon Dioxide 30 25 BUN 40 H 37 H Creatinine 2.10 H 1.80 H Glucose 417 H* 413 H* Calcium 9.5 9.2 Cardiac Enzymes 10/26/17 10/26/17 10/27/17 Range/Units 21:14 23:55 03:05 Troponin I < 0.02 < 0.02 < 0.02 (0.00-0.06) ng/ml 10/27/17 Range/Units 06:43 Troponin I < 0.02 (0.00-0.06) ng/ml Assessment and Plan (1) Acute exacerbation of chronic obstructive airways disease Current visit: Yes Status: Acute Category: Medical Code(s): J44.1 - Chronic obstructive pulmonary disease with (acute) exacerbation (2) Atrial fibrillation with rapid ventricular response Current visit: No Status: Acute Category: Medical Code(s): I48.91 - Unspecified atrial fibrillation (3) Chest pain Current visit: Yes Status: Acute Qualifiers: Chest pain type: unspecified Qualified Code(s): R07.9 - Chest pain, unspecified Category: Medical Code(s): R07.9 - Chest pain, unspecified (4) Bronchitis Current visit: Yes Status: Acute Category: Medical Code(s): J40 - Bronchitis, not specified as acute or chronic (5) Overweight Current visit: Yes Status: Acute Category: Medical Code(s): E66.3 - Overweight (6) Renal insufficiency Current visit: Yes Status: Acute Category: Medical Code(s): N28.9 - Disorder of kidney and ureter, unspecified (7) IDDM (insulin dependent diabetes mellitus) Current visit: Yes Status: Acute Category: Medical Code(s): E11.9 - Type 2 diabetes mellitus without complications; Z79.4 - clinical technician (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
--- NOTE | 2017-10-27 11:57 | Pharmacy Consult Notes ---
[facility] Pharmacy VTE Monitoring - Patient Demographics Admission date: 10/26/17 Report Date: 10/27/17 Time: 11:57 Allergies/Adverse Reactions: Patient Allergies oxycodone [From PERCOCET] Allergy (Unknown, Verified 10/26/17 21:11) Height: 1.68 m Weight: 95.396 kg Patient Problems: Current Active Problems Acute exacerbation of chronic obstructive airways disease (Acute) Chest pain (Acute) Bronchitis (Acute) Overweight (Acute) Overweight (Acute) Renal insufficiency (Acute) IDDM (insulin dependent diabetes mellitus) (Acute) Renal insufficiency (Chronic) Diabetes mellitus (Chronic) - VTE Risk Labs: VTE Related Lab Results Hgb 14.4 g/dL (12.2-16.2) 10/27/17 06:43 Hct 44.4 % (37.0-47.0) 10/27/17 06:43 Plt Count 263 K/mm3 (142-424) 10/27/17 06:43 BUN 37 mg/dL (7-18) H 10/27/17 06:43 Creatinine 1.80 mg/dL (0.55-1.02) H 10/27/17 06:43 Estimated Creat Clear 51 mL/min (0-300) 10/27/17 06:43 Was VTE Risk Assessment Performed: Yes VTE Score: 8 VTE Risk Level: Moderate Risk - Prophylaxis VTE Prophylaxis Ordered?: Yes Types of VTE Prophylaxis: TEDS Knee High Location of Applied Device: Bilateral Lower Extremeties
[2017-10-28 06:29] LABS: Basophils % 0.1 % (0.1-2.0); Eosinophils % 0.1 % (0.1-12.0); Lymphocytes # 1.1 K/mm3 (0.7-4.5); Lymphocytes % 7.4 K/mm3 (10-50); Mean Corpuscular HGB Conc 32.6 g/dL (31.8-35.4); Mean Corpuscular Hemoglobin 28.5 pg (27.0-31.2); Mean Corpuscular Volume 87.5 fl (81-99); Mean Platelet Volume 7.4 fl (7.4-10.4); Monocytes # 0.4 K/mm3 (0.1-1.0); Monocytes % 2.9 % (1.7-9.3); Neutrophils # 13.4 K/mm3 (1.8-7.8); Neutrophils % 89.6 % (37.0-80.0); Platelet Count 262 K/mm3 (142-424); Red Blood Count 4.48 M/mm3 (4.20-5.40)
[2017-10-28 06:38] LABS: Hematocrit 39.7 % (37.0-47.0); Hemoglobin 12.8 g/dL (12.2-16.2); White Blood Count 14.3 K/mm3 (4.8-10.8)
[2017-10-28 07:12] LABS: Anion Gap 12.7 mEq/L (5-15); Calcium 9.2 mg/dL (8.5-10.1); Potassium 5.7 mmoL/L (3.5-5.1); T4 (Thyroxine) 6.6 ug/dl (4.7-13.3); Thyroid Stimulating Hormone 0.26 uIU/ml (0.358-3.740)
[2017-10-28 07:29] LABS: Lymphocytes % 8 % (10-50); Monocytes % 2 % (2-9); Neutrophils % 90 % (42-76); RBC Morphology Normal; Total Cells Counted 100
--- NOTE | 2017-10-28 13:20 | Progress Note ---
Internal Medicine - PN: Subj *Date: 10/28/17 *Time: 13:16 Interval history: doing better but still with elevated renal function and had elevated k Exam Vital signs and Labs for Last 24 Hours: Temp Pulse Resp BP Pulse Ox 98.0 F 62 18 116/60 95 10/28/17 11:44 10/28/17 12:54 10/28/17 11:44 10/28/17 11:44 10/28/17 12:54 Laboratory Results - last 24 hr 10/27/17 15:59: POC Glucose 364 H* 10/27/17 20:23: POC Glucose 385 H* 10/28/17 06:01: Sodium 133 L, Potassium 5.7 H, Chloride 100, Carbon Dioxide 26, Anion Gap 12.7, BUN 40 H, Creatinine 1.65 H, Estimated Creat Clear 56, Estimated GFR 32 L, Est GFR ( Amer) 39 L, Glucose 421 H*, Calcium 9.2, TSH 0.26 L, Thyroxine (T4) 6.6 10/28/17 06:01: WBC 14.3 H D, RBC 4.48, Hgb 12.8 D, Hct 39.7, MCV 87.5, MCH 28.5, MCHC 32.6, RDW 14.0, Plt Count 262, MPV 7.4, Neut % (Auto) 89.6 H, Lymph % (Auto) 7.4 L, Lane % (Auto) 2.9, Eos % (Auto) 0.1, Baso % (Auto) 0.1, Neut # ( Auto) 13.4 H, Lymph # (Auto) 1.1, Lane # (Auto) 0.4, Eos # (Auto) 0.0, Baso # ( Auto) 0.0, Total Counted 100, Neutrophils % (Manual) 90 H, Lymphocytes % (Manual ) 8 L, Monocytes % (Manual) 2, Platelet Estimate Normal, RBC Morphology Normal 10/28/17 06:11: POC Glucose 424 H* 10/28/17 11:27: POC Glucose 357 H* I & O for Last 24 hours: Intake & Output 10/26/17 10/27/17 10/28/17 10/29/17 11:59 11:59 11:59 11:59 Intake Total 486 / 486 2716 / 2716 Output Total 600 / 600 1250 / 1250 Balance -114 / -114 1466 / 1466 Weight 210 lb 4.995 oz Microbiology Reports for the Last 24 Hours: Microbiology 10/26/17 22:00 Sputum - Expectorated Sputum Gram Stain - Final 10/26/17 22:00 Sputum - Expectorated Sputum Sputum Culture - Preliminary Gram Negative Rods - Constitutional no acute distress - *Routine HEENT Exam Head: Present: normocephalic Eye: Present: EOMI, PERRL ENT: Present: mucous membranes dry - *Routine Neck Exam Present: supple - *Routine Respiratory Exam Present: decreased breath sounds. Absent: respiratory distress - *Routine Cardiovascular Exam Present: RRR, murmur - *Routine Abdominal Exam Present: soft - *Routine Extremities Exam Absent: calf tenderness - *Routine Skin Exam Present: intact - *Routine Neurological Exam Present: alert, oriented X3, CN II-XII intact - Routine Psychiatric Exam Present: normal affect Assessment and Plan (1) Acute exacerbation of chronic obstructive airways disease Current visit: Yes Status: Acute Category: Medical Code(s): J44.1 - Chronic obstructive pulmonary disease with (acute) exacerbation (2) Atrial fibrillation with rapid ventricular response Current visit: No Status: Acute Category: Medical Code(s): I48.91 - Unspecified atrial fibrillation (3) Chest pain Current visit: Yes Status: Acute Qualifiers: Chest pain type: unspecified Qualified Code(s): R07.9 - Chest pain, unspecified Category: Medical Code(s): R07.9 - Chest pain, unspecified (4) Bronchitis Current visit: Yes Status: Acute Category: Medical Code(s): J40 - Bronchitis, not specified as acute or chronic (5) Overweight Current visit: Yes Status: Acute Category: Medical Code(s): E66.3 - Overweight (6) Renal insufficiency Current visit: Yes Status: Acute Category: Medical Code(s): N28.9 - Disorder of kidney and ureter, unspecified (7) IDDM (insulin dependent diabetes mellitus) Current visit: Yes Status: Acute Category: Medical Code(s): E11.9 - Type 2 diabetes mellitus without complications; Z79.4 - 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
--- NOTE | 2017-10-28 13:26 | Consult Report ---
History of Present Illness Consult date: 10/28/17 Requesting physician: Justin Flores Consult reason: chest pain, shortness of breath Chief complaint: SOA, chest pain Additional Medical History:: 1. HTN for 15-20 yrs A. echocardiogram, 12/2014, normal LV size/thickness with LVEF 45-55%, mild LAE, no significant valve disease. B. Echocardiogram 07/2016, mild LAE at 4.6 cm with normal LV size, LVEF 50- 55% with no regional wall motion abnormality. Grade 1 diastolic dysfunction noted. Mild MR and TR noted. C. Echo, 05/2017, LVEF 25-30% with biventricular dysfunction. 2. Diabetes, treated for 3 yrs A. CKD, stage 3-4 3. Right breast mastectomy for Cancer with chemo and radiation at , approx [id number]. A. right arm lymphedema 4. CAD A. NSTEMI, 12/2014 B. TIM X 2 to RCA, 12/2014. On DAPT since then. C. Cardiac cath, 07/2017, mild CAD with LVEF 55% with LVEDP of 25 mm Hg 5. Obesity 6. Tobacco use, started age 10, 0.5-1 ppd, continued A. Chronic obstructive pulmonary disease and asthma 7. Hyperlipidemia, on statin. 8. FH of cancer A. Father in his mid 30's with cancer, Mother in her 40's with bone cancer 9. History of atrial fibrillation. Patient has been in sinus rhythm at all visits since December 2014 A. CHADS-VASC score is at least 4, 01/2016. B. Xarelto therapy 10. Obstructive sleep apnea, 09/2016, with recommendation for AutoPap trial. AHI index was 19.6 with a respiratory disturbance index of 29.2. 13 obstructive apneas and one central apnea noted along with 80 hypopneas. History of present illness: 56-year-old white female with diabetes, known COPD and mild coronary artery disease by recent cardiac catheterization presents to the ER with 3 day history of increasing shortness of breath and chest pressure with minimal exertion. Due to the patient's significant history as noted above she was admitted for further evaluation. Cardiac enzymes returned normal but patient has been treated for possible pneumonia with antibiotics and prednisone therapy with significant improvement. She is known to have a history of atrial fibrillation for which she is on chronic Xarelto therapy. [facility] History Medical History: Reports:: Asthma, Cancer (right mastectomy), Congestive Heart Failure, Chronic Obstructive Pulmonary Disease (COPD), Diabetes Mellitus Type 2 , Gastroesophageal Reflux Disease(GERD), Home Oxygen, Hypertension, Seizures Denies:: Diabetes Mellitus Type 1, MRSA Other Medical History: Reports: Blood Transfusion Reaction, Chemotherapy, Radiation Therapy Laterality Cases: Right: Breast Biopsy, Mastectomy, Bilateral: Tonsillectomy Other Surgeries: Yes: Cardiac Catheterization (08/05/17 no stenting), Coronary Stent, Pacemaker, Other Amputation: No Fractures: No - *Social History Educational Level: Attended College Smoking Status: Former smoker Tobacco Type: cigarettes # Packs/Day (cigarettes): 1 #Yrs smoked (if former smoker): 40 Smoking End Date: 3 months ago Alcohol Intake: never Alcohol Intake Frequency:: other Substance Use Type: marijuana Last Used Substance: days (ago) Occupational Status: disabled Housing: house Household Members: family, children - Psychiatric History Expresses thoughts of harming self/others: None Suicide Plan Description: No Plan *Family Hx:: Hypertension, Cancer Meds Home Medications Medication Instructions Recorded Confirmed Type Digoxin [Digoxin 0.125mg Tablet] 125 mcg PO DAILY 10/26/17 10/26/17 History Gabapentin [Neurontin 800mg Tab] 800 mg PO TID 10/26/17 10/26/17 History Insulin NPH Hum/Reg Insulin Hm 10 unit SUB-Q BID 10/26/17 10/26/17 History [Humulin 70/30 Kwikpen] Lisinopril [Prinivil 10mg Tablet] 10 mg PO DAILY 10/26/17 10/26/17 History Metoprolol Tartrate [Lopressor 150 mg PO BID 10/26/17 10/26/17 History 50mg tablet] Nystatin 1 applicatio TOPICAL NEEDED PRN 10/26/17 10/27/17 History Rivaroxaban [Xarelto 15mg tablet] 15 mg PO DAILY 10/26/17 10/26/17 History Aspirin [Aspirin 81mg EC Tab] 81 mg PO DAILY 10/27/17 10/27/17 History Spironolactone 50 mg PO DAILY 10/27/17 10/27/17 History hydrOXYzine pamoate [Vistaril] 25 mg PO HS PRN 10/27/17 10/27/17 History Allergies Allergy/AdvReac Type Severity Reaction Status Date / Time oxycodone [From PERCOCET] Allergy Unknown Verified 10/26/17 21:11 Review of Systems - *Cardiovascular Reports chest pain, Reports shortness of breath, Reports shortness of breath with activity - *Respiratory Reports chest congestion, Reports cough, Reports shortness of breath, Reports shortness of breath with activity - *Gastrointestinal Denies abdominal pain - *Musculoskeletal Reports joint pain - *Neurologic Reports weakness, Denies seizure-like activity Exam Vital signs and Labs for Last 24 Hours: Temp Pulse Resp BP Pulse Ox 98.0 F 62 18 116/60 95 10/28/17 11:44 10/28/17 12:54 10/28/17 11:44 10/28/17 11:44 10/28/17 12:54 Laboratory Results - last 24 hr 10/27/17 15:59: POC Glucose 364 H* 10/27/17 20:23: POC Glucose 385 H* 10/28/17 06:01: Sodium 133 L, Potassium 5.7 H, Chloride 100, Carbon Dioxide 26, Anion Gap 12.7, BUN 40 H, Creatinine 1.65 H, Estimated Creat Clear 56, Estimated GFR 32 L, Est GFR ( Amer) 39 L, Glucose 421 H*, Calcium 9.2, TSH 0.26 L, Thyroxine (T4) 6.6 10/28/17 06:01: WBC 14.3 H D, RBC 4.48, Hgb 12.8 D, Hct 39.7, MCV 87.5, MCH 28.5, MCHC 32.6, RDW 14.0, Plt Count 262, MPV 7.4, Neut % (Auto) 89.6 H, Lymph % (Auto) 7.4 L, [place] % (Auto) 2.9, Eos % (Auto) 0.1, Baso % (Auto) 0.1, Neut # ( Auto) 13.4 H, Lymph # (Auto) 1.1, [place] # (Auto) 0.4, Eos # (Auto) 0.0, Baso # ( Auto) 0.0, Total Counted 100, Neutrophils % (Manual) 90 H, Lymphocytes % (Manual ) 8 L, Monocytes % (Manual) 2, Platelet Estimate Normal, RBC Morphology Normal 10/28/17 06:11: POC Glucose 424 H* 10/28/17 11:27: POC Glucose 357 H* I & O for Last 24 hours: Intake & Output 10/26/17 10/27/17 10/28/17 10/29/17 11:59 11:59 11:59 11:59 Intake Total 486 / 486 2716 / 2716 Output Total 600 / 600 1250 / 1250 Balance -114 / -114 1466 / 1466 Weight 210 lb 4.995 oz Microbiology Reports for the Last 24 Hours: Microbiology 10/26/17 22:00 Sputum - Expectorated Sputum Gram Stain - Final 10/26/17 22:00 Sputum - Expectorated Sputum Sputum Culture - Preliminary Gram Negative Rods - *Routine Neck Exam Absent: JVD, carotid bruit - *Routine Respiratory Exam Present: decreased breath sounds, rhonchi, wheezes - *Routine Cardiovascular Exam Present: irregular rhythm - *Routine Extremities Exam Present: edema - *Routine Neurological Exam Present: alert, oriented X3, moving all extremities Assessment and Plan (1) Acute exacerbation of chronic obstructive airways disease Current visit: Yes Status: Acute Category: Medical Code(s): J44.1 - Chronic obstructive pulmonary disease with (acute) exacerbation (2) Atrial fibrillation with rapid ventricular response Current visit: No Status: Acute Category: Medical Code(s): I48.91 - Unspecified atrial fibrillation (3) Chest pain Current visit: Yes Status: Acute Qualifiers: Chest pain type: unspecified Qualified Code(s): R07.9 - Chest pain, unspecified Category: Medical Code(s): R07.9 - Chest pain, unspecified (4) Bronchitis Current visit: Yes Status: Acute Category: Medical Code(s): J40 - Bronchitis, not specified as acute or chronic (5) Overweight Current visit: Yes Status: Acute Category: Medical Code(s): E66.3 - Overweight (6) Renal insufficiency Current visit: Yes Status: Acute Category: Medical Code(s): N28.9 - Disorder of kidney and ureter, unspecified (7) IDDM (insulin dependent diabetes mellitus) Current visit: Yes Status: Acute Category: Medical Code(s): E11.9 - Type 2 diabetes mellitus without complications; 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 Chest pain with normal troponins and EKG changes. With recent cardiac catheterization showed mild coronary artery disease, no further cardiac workup at this time. 2. Due to elevated renal functions on admission, diuretic therapy has been adjusted accordingly. 3. Due to shortness of breath and recent history of severe LV dysfunction, will obtain an echocardiogram to evaluate the patient's left ventricular ejection fraction and possibly right ventricular systolic pressure. 4. Patient is feeling much better on antibiotics and prednisone therapy. Patient can be discharged home from a cardiology standpoint with follow-up in 1- 2 weeks. 5. Chronic atrial fibrillation on digoxin and Xarelto therapy.
--- NOTE | 2017-10-28 21:06 | Cardiology Report ---
PROCEDURE: 2-D M-mode and color Doppler study INDICATIONS FOR THE TEST: Chest pain X COPDX Heart Murmur Tobacco Smoking Palpitations Fatigue Syncope Edema HypertensionXDiabetes Mellitus Rheumatic Fever SOBXDOEXObesityXHyperlipidemia Family History HD Additional History CHRONIC AF EF 06/01/17 25-30% PATIENT INFORMATION HEIGHT: 66 WEIGHT:210 GENDER: Female B/P:140/90 2-D/M-MODE INTERPRETATION: 2-D MEASUREMENTS OBSERVED VALUES IN CMS Right Ventricular Dimension (RVDd) 2.4 Interventricular Septum (Thickness)(IVsd) 1.4 Left Ventricular Internal Dimensions(LVIDd) 5.1 Left Ventricular Posterior Wall (Thickness)(LVPWd) 1.0 Aortic Root 3.2 Aortic Cusp Separation 1.9 Left Atrial Dimensions (LAD) 4.0 2D 1. Left atrium is mildly enlarged, left ventricle is normal size, mild concentric left ventricular hypertrophy, visually estimated ejection fraction 50% with no obvious regional wall motion abnormality. 2. The right atrium and right ventricle are normal size and contractility. 3. The aortic valve is minimally thickened and fibrosed. 4. The mitral and tricuspid valve leaflets are minimally thickened. 5. The pulmonic valve is poorly visualized. 6. No significant pericardial effusion noted. DOPPLER INTERROGATION: Doppler interrogation of the aortic, mitral and tricuspid valvular presence of mild mitral and tricuspid regurgitation, tricuspid regurgitant jet velocity is insufficient for calculation of the right ventricular systolic pressure, diastolic parameters are inconclusive. CONCLUSION: 1. Mildly enlarged left atrium, normal left ventricular size, mild concentric left ventricular hypertrophy, visually estimated ejection fraction of 50% with no obvious regional wall motion abnormality, diastolic parameters are inconclusive. 2. Mild mitral and tricuspid regurgitation 3. No significant pericardial effusion noted.
[2017-10-28 22:47] LABS: Calcium 8.7 mg/dL (8.5-10.1)
[2017-10-29 08:22] VITALS: BP 132/76
--- NOTE | 2017-10-29 09:39 | Discharge Summary ---
General - General Admission date:: 10/26/17 Discharge date: 10/29/17 HPI HPI: this wf with hx of hear disease over the last few days has had chest pain which has been progressive and also has had prod cough and sob with hx of copd - she is iddm and recently stopped tob use - she was seen in the ed and was admitted for treatment and card [facility] Hospital Course Hospital Course: pt improved in the hospital with ivf and abx with proteus brittney in sputum - sensitive to levofloxin - she was seen by card as she had chest pain -HTN for 15 -20 yrs A. echocardiogram, 12/2014, normal LV size/thickness with LVEF 45-55%, mild LAE, no significant valve disease. B. Echocardiogram 07/2016, mild LAE at 4.6 cm with normal LV size, LVEF 50- 55% with no regional wall motion abnormality. Grade 1 diastolic dysfunction noted. Mild MR and TR noted. C. Echo, 05/2017, LVEF 25-30% with biventricular dysfunction. 2. Diabetes, treated for 3 yrs A. CKD, stage 3-4 3. Right breast mastectomy for Cancer with chemo and radiation at , approx [id number]. A. right arm lymphedema 4. CAD A. NSTEMI, 12/2014 B. TIM X 2 to RCA, 12/2014. On DAPT since then. C. Cardiac cath, 07/2017, mild CAD with LVEF 55% with LVEDP of 25 mm Hg 5. Obesity 6. Tobacco use, started age 10, 0.5-1 ppd, continued A. Chronic obstructive pulmonary disease and asthma 7. Hyperlipidemia, on statin. 8. FH of cancer A. Father in his mid 30's with cancer, Mother in her 40's with bone cancer 9. History of atrial fibrillation. Patient has been in sinus rhythm at all visits since December 2014 A. CHADS-VASC score is at least 4, 01/2016. B. Xarelto therapy 10. Obstructive sleep apnea, 09/2016, with recommendation for AutoPap trial. AHI index was 19.6 with a respiratory disturbance index of 29.2. 13 obstructive apneas and one central apnea noted along with 80 hypopneas. History of present illness: 56-year-old white female with diabetes, known COPD and mild coronary artery disease by recent cardiac catheterization presents to the ER with 3 day history of increasing shortness of breath and chest pressure with minimal exertion. Due to the patient's significant history as noted above she was admitted for further evaluation. Cardiac enzymes returned normal but patient has been treated for possible pneumonia with antibiotics and prednisone therapy with significant improvement. She is known to have a history of atrial fibrillation for which she is on chronic Xarelto therapy. hest pain with normal troponins and EKG changes. With recent cardiac catheterization showed mild coronary artery disease, no further cardiac workup at this time. 2. Due to elevated renal functions on admission, diuretic therapy has been adjusted accordingly. 3. Due to shortness of breath and recent history of severe LV dysfunction, will obtain an echocardiogram to evaluate the patient's left ventricular ejection fraction and possibly right ventricular systolic pressure. 4. Patient is feeling much better on antibiotics and prednisone therapy. Patient can be discharged home from a cardiology standpoint with follow-up in 1- 2 weeks. 5. Chronic atrial fibrillation on digoxin and Xarelto therapy. pt with episode of elevated k and was treated with improvement - Objective Vital signs: Temp Pulse Resp BP Pulse Ox 97.9 F 94 H 22 132/76 94 L 10/29/17 08:00 10/29/17 08:32 10/29/17 08:00 10/29/17 08:00 10/29/17 08:00 no acute distress - *Routine HEENT Exam Head: Present: normocephalic Eye: Present: EOMI, PERRL ENT: Present: mucous membranes dry - *Routine Neck Exam Present: supple - *Routine Respiratory Exam Present: CTA bilaterally - *Routine Cardiovascular Exam Present: RRR, murmur, S4 - *Routine Abdominal Exam Present: soft - *Routine Extremities Exam Absent: calf tenderness - *Routine Skin Exam Present: intact - *Routine Neurological Exam Present: alert, oriented X3, CN II-XII intact - Routine Psychiatric Exam Present: normal affect Results Labs on day of discharge: Labs from last 24 hours 10/29/17 10/29/17 10/28/17 06:02 00:45 21:00 Sodium 134 L Potassium 5.0 Chloride 101 Carbon Dioxide 22 Anion Gap 16.0 H BUN 36 H Creatinine 2.02 H D Estimated Creat Clear 46 Estimated GFR 25 L Est GFR ( Amer) 31 L D Glucose 521 H* D POC Glucose 266 H 323 H* Random Glucose Calcium 8.7 10/28/17 10/28/17 10/28/17 21:00 20:24 17:16 Sodium Potassium Chloride Carbon Dioxide Anion Gap BUN Creatinine Estimated Creat Clear Estimated GFR Est GFR ( Amer) Glucose POC Glucose 553 H* 463 H* Random Glucose 522 H* Calcium 10/28/17 11:27 Sodium Potassium Chloride Carbon Dioxide Anion Gap BUN Creatinine Estimated Creat Clear Estimated GFR Est GFR ( Amer) Glucose POC Glucose 357 H* Random Glucose Calcium Preliminary micro results at discharge 10/26/17 21:14 Blood Culture - Preliminary Blood NO GROWTH AFTER 48 HOURS 10/26/17 21:14 Blood Culture - Preliminary Blood NO GROWTH AFTER 48 HOURS DS: Diagnosis - Discharge Diagnosis (1) Acute exacerbation of chronic obstructive airways disease Status: Acute (2) Atrial fibrillation with rapid ventricular response Status: Acute (3) Chest pain Status: Acute (4) Bronchitis Status: Acute Problem details: proteus mirablis on culture (5) Overweight Status: Acute (6) Renal insufficiency Status: Acute (7) IDDM (insulin dependent diabetes mellitus) Status: Acute (8) Hyperkalemia Status: Acute Discharge Plan - Patient Discharge Instructions ACTIVITY: Continue current activity DIET: continue same diet - Follow up Plan Disposition: Home, Self-Long Term Medications: Home Medications Medication Instructions Recorded Confirmed Type Digoxin [Digoxin 0.125mg Tablet] 125 mcg PO DAILY 10/26/17 10/26/17 History Gabapentin [Neurontin 800mg Tab] 800 mg PO TID 10/26/17 10/26/17 History Insulin NPH Hum/Reg Insulin Hm 10 unit SUB-Q BID 10/26/17 10/26/17 History [Humulin 70/30 Kwikpen] Lisinopril [Prinivil 10mg Tablet] 10 mg PO DAILY 10/26/17 10/26/17 History Metoprolol Tartrate [Lopressor 150 mg PO BID 10/26/17 10/26/17 History 50mg tablet] Nystatin 1 applicatio TOPICAL NEEDED PRN 10/26/17 10/27/17 History Rivaroxaban [Xarelto 15mg tablet] 15 mg PO DAILY 10/26/17 10/26/17 History Aspirin [Aspirin 81mg EC Tab] 81 mg PO DAILY 10/27/17 10/27/17 History Spironolactone 50 mg PO DAILY 08/12/18 08/12/18 History hydrOXYzine pamoate [Vistaril] 25 mg PO HS PRN 10/27/17 10/27/17 History Prescriptions/Medication Reconciliation: New levoFLOXacin [Levaquin 500mg tab] 500 mg PO DAILY #7 tab Aspirin [Aspirin 81mg EC Tab] 81 mg PO DAILY tablet.dr Hi albuterol sulfate HFA 90 mcg/actuation aerosol inhaler 1 puff INHALATION Q6H #6.7 g amlodipine 10 mg tablet 10 mg PO DAILY #90 tab atorvastatin 80 mg tablet 80 mg PO DAILY #30 tab clopidogrel 75 mg tablet 75 mg PO DAILY #30 tab isosorbide mononitrate ER 30 mg tablet,extended release 24 hr 30 mg PO DAILY #30 tab pantoprazole 40 mg tablet,delayed release 40 mg PO DAILY #30 tab cyclobenzaprine 10 mg tablet 10 mg PO Q8H #30 tab Nicotine [Nicoderm 21mg/24hr patch] 21 mg TD DAILYP PRN #30 patch.td24 PRN Reason: NICOTINE WITHDRAWAL Nystatin 1 applicatio TOPICAL NEEDED PRN PRN Reason: yeast Metoprolol Tartrate [Lopressor 50mg tablet] 150 mg PO BID Insulin NPH Hum/Reg Insulin Hm [Humulin 70/30 Kwikpen] 10 unit SUB-Q BID Gabapentin [Neurontin 800mg Tab] 800 mg PO TID Digoxin [Digoxin 0.125mg Tablet] 125 mcg PO DAILY Rivaroxaban [Xarelto 15mg tablet] 15 mg PO DAILY hydrOXYzine pamoate [Vistaril] 25 mg PO HS PRN PRN Reason: Anxiety Aspirin [Aspirin 81mg EC Tab] 81 mg PO DAILY Discontinued furosemide 40 mg tablet 40 mg PO BID #60 tab Lisinopril [Prinivil 10mg Tablet] 10 mg PO DAILY Spironolactone 50 mg PO DAILY
== END 2017-10-29 11:03 | disposition home or self-care (01) ==
LOC: ER 21:00 → 2ND 21:00
PROVIDERS: ADMIT Emergency Medicine; ATTEND Emergency Medicine

== ENCOUNTER → 2017-11-07 10:45 | Outpatient (REF) | payer OTHER, SELFPAY ==
[2017-11-07 15:49] LABS: Amphetamine/Metha Screen,Urine Negative ng/mL (<1000); Barbiturates Screen,Urine Negative ng/mL (<200); Benzodiazepines Screen,Urine Negative ng/mL (<200); Cannabinoid Screen,Urine Negative ng/mL (<50); Cocaine Screen,Urine Negative ng/mL (<300); Methadone Screen,Urine Negative ng/mL (<300); Opiate Screen,Urine Negative ng/mL (<300); Phencyclidine Screen,Urine Negative ng/mL (<25)
== END ==
LOC: LAB 10:45
PROVIDERS: Visit Provider Nurse Practitioner Family
DX: Z79.899 Other long term (current) drug therapy (principal)
CPT/HCPCS: 80305

== ENCOUNTER → 2017-12-12 15:25 | Outpatient (REF) | payer OTHER, SELFPAY ==
[2017-12-12 19:07] LABS: Amphetamine/Metha Screen,Urine Negative ng/mL (<1000); Barbiturates Screen,Urine Negative ng/mL (<200); Benzodiazepines Screen,Urine Negative ng/mL (<200); Cannabinoid Screen,Urine Negative ng/mL (<50); Cocaine Screen,Urine Negative ng/mL (<300); Methadone Screen,Urine Negative ng/mL (<300); Opiate Screen,Urine Negative ng/mL (<300); Phencyclidine Screen,Urine Negative ng/mL (<25)
== END ==
LOC: LAB 15:25
PROVIDERS: Visit Provider Nurse Practitioner Family
DX: Z79.899 Other long term (current) drug therapy (principal); E11.9 Type 2 diabetes mellitus without complications
CPT/HCPCS: 80305

== ENCOUNTER → 2017-12-24 12:18 | Outpatient (CLI) | payer OTHER, SELFPAY ==
--- NOTE | 2017-12-24 12:25 | XR_ITS ---
XR chest 2V HISTORY: Cough, recent pneumonia ITS.REASON: / ORDERING PHYSICIAN: THELMA Obrien PATIENT AGE: 57 years COMPARISON: 10/26/2017 FINDINGS: The cardiomediastinal silhouette and pulmonary vascularity are within normal limits. The lungs are clear without infiltrates, suspicious nodules, or pleural effusions. Prior right mastectomy. Vertical clips axilla on the right. Old granulomatous disease. No acute bony abnormalities. IMPRESSION: No change with no acute finding
== END ==
PROVIDERS: PCP Nurse Practitioner Family; Visit Provider Physician Assistant
DX: R06.00 Dyspnea, unspecified (principal); R09.02 Hypoxemia; E78.4 Other hyperlipidemia; I25.118 Atherosclerotic heart disease of native coronary artery with other forms of angina pectoris; I48.2 Chronic atrial fibrillation; I50.21 Acute systolic (congestive) heart failure
CPT/HCPCS: 71046

== ENCOUNTER → 2018-02-19 20:00 | Outpatient (CLI) | payer OTHER, SELFPAY ==
[2018-02-19 22:58] LABS: Amphetamine/Metha Screen,Urine Negative ng/mL (<1000); Barbiturates Screen,Urine Negative ng/mL (<200); Benzodiazepines Screen,Urine Negative ng/mL (<200); Cannabinoid Screen,Urine Negative ng/mL (<50); Cocaine Screen,Urine Negative ng/mL (<300); Methadone Screen,Urine Negative ng/mL (<300); Opiate Screen,Urine Negative ng/mL (<300); Phencyclidine Screen,Urine Negative ng/mL (<25)
== END ==
PROVIDERS: Visit Provider Nurse Practitioner Family
DX: Z79.899 Other long term (current) drug therapy (principal)
CPT/HCPCS: 80305

== ENCOUNTER → 2018-03-03 13:28 | Outpatient (CLI) | payer OTHER, SELFPAY ==
[2018-03-03 13:31] LABS: Microscopic, Urine URINE MICROSCOPIC (MICROSCOPIC)
[2018-03-03 13:52] LABS: Appearance,Urine CLEAR (Clear); Bilirubin,Urine Negative (Negative); Blood, Urine Negative (Negative); Color,Urine YELLOW (Yellow); Glucose,Urine (UA) 3+ (Negative); Ketones,Urine TRACE (Negative); Leukocyte Esterase,Urine Negative (Negative); Nitrate,Urine Negative (Negative); Protein,Urine 2+ (Negative); Specific Gravity, Urine >= 1.030 (1.005-1.030); Urobilinogen,Urine 0.2 EU/dl (0.2)
[2018-03-03 13:59] LABS: Basophils # 0.1 K/mm3 (0-0.2); Basophils % 0.5 % (0.1-2.0); Eosinophils # 0.2 K/mm3 (0.0-0.4); Eosinophils % 1.7 % (0.1-12.0); Hematocrit 51.2 % (37.0-47.0); Hemoglobin 15.7 g/dL (12.2-16.2); Lymphocytes # 3.1 K/mm3 (0.7-4.5); Lymphocytes % 25.4 % (10-50); Mean Corpuscular HGB Conc 30.6 g/dL (31.8-35.4); Mean Corpuscular Hemoglobin 26.9 pg (27.0-31.2); Mean Corpuscular Volume 87.8 fl (81-99); Mean Platelet Volume 7.6 fl (7.4-10.4); Monocytes # 0.6 K/mm3 (0.1-1.0); Monocytes % 5.1 % (1.7-9.3); Neutrophils # 8.3 K/mm3 (1.8-7.8); Neutrophils % 67.3 % (37.0-80.0); Platelet Count 322 K/mm3 (142-424); Red Blood Count 5.83 M/mm3 (4.20-5.40); Red Cell Distribution Width 14.3 % (11.5-17.5); White Blood Count 12.3 K/mm3 (4.8-10.8)
[2018-03-03 14:05] LABS: WBC,Urine Occasional #/hpf (0-3)
[2018-03-03 14:06] LABS: Bacteria,Urine 1+ /lpf
[2018-03-03 15:22] LABS: Creatinine,Urine Random 188 mg/dL (20-320)
[2018-03-03 18:59] LABS: Albumin Level 3.1 gm/dL (3.4-5.0); Anion Gap 11.7 mEq/L (5-15); Blood Urea Nitrogen 19 mg/dL (7-18); Calcium 8.6 mg/dL (8.5-10.1); Carbon Dioxide 28 mmol/L (21.0-32.0); Chloride 101 mmol/L (98-107); Creatinine,Serum 1.44 mg/dL (0.55-1.02); Estimated Glomerular Filt Rate 37 ml/min (>60); GFR (African American) 45 ML/MIN (>60); Glucose 346 mg/dL (74-106); Phosphorous 4.7 mg/dL (2.4-4.9); Potassium 3.7 mmoL/L (3.5-5.1); Sodium 137 mmol/L (136-145)
[2018-03-04 11:14] LABS: Vitamin D 25 Hydroxy 12.4 ng/mL (30.0-100.0)
[2018-03-05 06:18] LABS: Parathyroid Hormone Intact 67 pg/mL (15-65)
[2018-03-05 06:19] LABS: Calcium, Ionized 5.2 mg/dL (4.5-5.6)
== END ==
PROVIDERS: Visit Provider Internal Medicine Nephrology
DX: N18.3 Chronic kidney disease, stage 3 (moderate) (principal)
CPT/HCPCS: 36415; 80069; 81001; 82330; 82570; 82652; 83970; 84155; 85025

== ENCOUNTER → 2018-03-03 13:56 | Outpatient (POV) | payer OTHER, SELFPAY | PROVIDERS: Visit Provider Internal Medicine Nephrology | DX: Z00.00 Encounter for general adult medical examination without abnormal findings (principal) ==

== ENCOUNTER → 2018-06-27 10:41 | Outpatient (CLI) | payer OTHER, SELFPAY ==
[2018-06-27 12:06] LABS: Anion Gap 14.4 mEq/L (5-15); Blood Urea Nitrogen 20 mg/dL (7-18); Calcium 9.6 mg/dL (8.5-10.1); Carbon Dioxide 30 mmol/L (21.0-32.0); Chloride 98 mmol/L (98-107); Creatinine,Serum 1.21 mg/dL (0.55-1.02); Estimated Glomerular Filt Rate 46 ml/min (>60); GFR (African American) 55 ML/MIN (>60); Glucose 301 mg/dL (74-106); Potassium 4.4 mmoL/L (3.5-5.1); Sodium 138 mmol/L (136-145)
== END ==
PROVIDERS: Visit Provider Internal Medicine Cardiovascular Disease
DX: I50.20 Unspecified systolic (congestive) heart failure (principal); E66.9 Obesity, unspecified; I48.91 Unspecified atrial fibrillation; I50.9 Heart failure, unspecified; I51.9 Heart disease, unspecified
CPT/HCPCS: 36415; 80048; 83880

== ENCOUNTER → 2018-07-11 07:35 | Outpatient (CLI) | payer OTHER, SELFPAY ==
--- NOTE | 2018-07-11 07:52 | CA_ITS ---
PROCEDURE: 2-D M-mode and color Doppler study INDICATIONS FOR THE TEST: Chest pain + COPD+ Heart Murmur Tobacco Smoking Palpitations Fatigue+ Syncope Edema Hypertension+Diabetes Mellitus+ Rheumatic Fever SOB+UGARTE Obesity+Hyperlipidemia Family History HD Additional History chronic a-fib, chf, cad, stents, hx of decreased EF DEFINITY USED PATIENT INFORMATION HEIGHT: 66 WEIGHT:223 GENDER: Female B/P:167/86 2-D/M-MODE INTERPRETATION: 2-D MEASUREMENTS OBSERVED VALUES IN CMS Right Ventricular Dimension (RVDd) 2.4 Interventricular Septum (Thickness)(IVsd) 0.8 Left Ventricular Internal Dimensions(LVIDd) 5.6 Left Ventricular Posterior Wall (Thickness)(LVPWd) 0.7 Aortic Root 2.7 Aortic Cusp Separation Left Atrial Dimensions (LAD) 4.9 2D 1. Technically difficult study, Definity contrast was utilized to delineate endocardial surfaces. 2. Left atrium is mildly enlarged, left ventricle is normal size, visually estimated ejection fraction approximately 40%, there is moderate hypokinesis of the interventricular septum seen. There is no left ventricular thrombus seen. 3. The right atrium and right ventricle are normal size and contractility. 4. The mitral and tricuspid valve are grossly normal. 5. The aortic valve is minimally thickened and fibrosed. 6. The pulmonic valve is poorly visualized. 7. No significant pericardial effusion noted. DOPPLER INTERROGATION: Doppler interrogation of the aortic, mitral and tricuspid valvular presence of mild mitral and tricuspid regurgitation, tricuspid regurgitation jet velocity is inadequate for calculation of the right ventricular systolic pressure, grade 1 diastolic dysfunction seen with tissue Doppler evidence of raised left atrial pressure. CONCLUSION: 1. Technically difficult study, Definity contrast at rest and delineate endocardial surfaces. 2. Left atrium is mildly enlarged, left ventricle is normal size, visually estimated ejection fraction approximately 40%, there is moderate hypokinesis involving the intraventricular septum. There is no left ventricular thrombus seen. Grade 1 diastolic dysfunction seen with tissue Doppler evidence of raised left atrial pressure. 3. Mild mitral and tricuspid regurgitation 4. No significant pericardial effusion noted.
== END ==
PROVIDERS: PCP Emergency Medicine; Visit Provider Internal Medicine Cardiovascular Disease
DX: I50.20 Unspecified systolic (congestive) heart failure (principal); R06.09 Other forms of dyspnea
CPT/HCPCS: 93306

== ENCOUNTER → 2018-07-24 08:46 | Outpatient (CLI) | payer OTHER, SELFPAY ==
--- NOTE | 2018-07-24 08:54 | CT_ITS ---
CT abdomen pelvis w con CLINICAL INDICATION: Abdominal pain, possible hernia, not in the midabdomen, right lower quadrant pain ITS.REASON: abdominal hernia ORDERING PHYSICIAN: Osman Rausch MD PATIENT AGE: 57 years COMPARISON: None TECHNIQUE: Axial images obtained with sagittal and coronal reformats. All CT scans at the facility use one or more dose reduction, viz: automated exposure control, ma/kV adjustment per patient size (including targeted exams where dose is matched to indication, i.e. head), or iterative reconstruction technique. PROCEDURE: Oral Contrast: Redicat IV Contrast: 75 mL Optiray 350. FINDINGS: The lung bases are clear. There are coronary artery calcifications. Normal heart size. There is mild diffuse fatty liver. No focal liver lesion. The gallbladder, spleen, and pancreas have an unremarkable appearance. There is a left adrenal nodule at 1.9 cm and a smaller right adrenal nodule at 0.9 cm. There is an additional nodule projecting off of the left arm of the left adrenal gland measuring 1.2 cm. There is a 1.8 cm isodensity in the mid aspect of the right kidney laterally which is somewhat less well-defined on the delayed images. Cannot to the possibility of a solid lesion at this region. 2 cm isodensity projects off the posterior aspect of the left kidney inferiorly and may be due to a cyst. Recommend ultrasound of the kidneys for further evaluation. Unremarkable appendix. No intestinal obstruction or free air is evident. No evidence of diverticulitis. There are scattered diverticula within the colon. There is mild thickening versus nondistention of the descending and sigmoid colon without stranding of the pericolic fat. There is a small umbilical hernia. No other abdominal wall hernia is evident. The previous placed in the area of clinical concern in the right lower quadrant. No soft tissue mass or abdominal wall hernia evident at this area. No acute bony findings. IMPRESSION: 1. No abdominal wall hernia evident aside from a small umbilical hernia containing fat. 2. There are bilateral renal isodense lesions appear somewhat more solid on the right. The left lesion may be due to a cyst. Recommend bilateral renal ultrasound for further evaluation. 3. Indeterminate bilateral adrenal nodules largest on the left at 1.[address] initially suggested for further evaluation to determine if these nodules are fat containing. If they are then no further workup will be needed.
[2018-07-24 09:06] LABS: Blood Urea Nitrogen 18 mg/dL (7-18); Creatinine,Serum 1.17 mg/dL (0.55-1.02); Estimated Glomerular Filt Rate 47 ml/min (>60); GFR (African American) 57 ML/MIN (>60)
== END ==
PROVIDERS: Visit Provider Surgery
DX: K46.9 Unspecified abdominal hernia without obstruction or gangrene (principal)
CPT/HCPCS: 36415; 74177; 82565; 84520

== ENCOUNTER → 2018-08-07 08:59 | Outpatient (CLI) | payer OTHER, SELFPAY ==
--- NOTE | 2018-08-07 09:00 | US_ITS ---
US gallbladder HISTORY: ITS.REASON: right upper quadrant pain ORDERING PHYSICIAN: Osman Rausch MD PATIENT AGE: 57 years Comparison: None FINDINGS: PANCREAS: Unremarkable. No obvious mass or abnormal fluid collection. No ductal dilatation LIVER: No focal liver lesions demonstrated. Homogeneous echogenicity. No intrahepatic biliary ductal dilatation evident fatty liver infiltration RIGHT KIDNEY: Unremarkable. Normal size and echogenicity. No hydronephrosis. There is a 2 cm cyst in the upper pole the right kidney GALLBLADDER: No gallstones, gallbladder wall thickening, pericholecystic fluid, or biliary dilatation. Common bile duct is 5 mm. IMPRESSION: Negative gallbladder/right upper quadrant ultrasound
== END ==
PROVIDERS: PCP Nurse Practitioner Family; Visit Provider Surgery
DX: K82.9 Disease of gallbladder, unspecified (principal)
CPT/HCPCS: 76705

== ENCOUNTER → 2018-08-20 13:24 | Outpatient (CLI) | payer OTHER, SELFPAY ==
[2018-08-20 13:59] LABS: Basophils # 0.1 K/mm3 (0-0.2); Basophils % 0.8 % (0.1-2.0); Eosinophils # 0.2 K/mm3 (0.0-0.4); Eosinophils % 2.5 % (0.1-12.0); Hematocrit 45.3 % (37.0-47.0); Hemoglobin 14.3 g/dL (12.2-16.2); Lymphocytes # 2.2 K/mm3 (0.7-4.5); Lymphocytes % 25.6 % (10-50); Mean Corpuscular HGB Conc 31.5 g/dL (31.8-35.4); Mean Corpuscular Hemoglobin 27.6 pg (27.0-31.2); Mean Corpuscular Volume 87.5 fl (81-99); Mean Platelet Volume 7.8 fl (7.4-10.4); Monocytes # 0.5 K/mm3 (0.1-1.0); Monocytes % 5.3 % (1.7-9.3); Neutrophils # 5.6 K/mm3 (1.8-7.8); Neutrophils % 65.8 % (37.0-80.0); Platelet Count 304 K/mm3 (142-424); Red Blood Count 5.17 M/mm3 (4.20-5.40); Red Cell Distribution Width 13.8 % (11.5-17.5); White Blood Count 8.5 K/mm3 (4.8-10.8)
[2018-08-20 15:07] LABS: Alanine Aminotransferase 20 U/L (12-78); Albumin Level 3.1 gm/dL (3.4-5.0); Alkaline Phosphatase 138 U/L (46-116); Anion Gap 10.1 mEq/L (5-15); Aspartate Amino Transferase 13 U/L (15-37); Bilirubin,Total 0.5 mg/dL (0.2-1.0); Blood Urea Nitrogen 12 mg/dL (7-18); Calcium 8.7 mg/dL (8.5-10.1); Carbon Dioxide 31 mmol/L (21.0-32.0); Chloride 102 mmol/L (98-107); Chol/HDL Ratio 4.6 (1-3.5); Cholesterol 158 mg/dL (140-200); Creatinine,Serum 0.97 mg/dL (0.55-1.02); Estimated Glomerular Filt Rate 59 ml/min (>60); Free T4 (Free Thyroxine) 1.02 ng/dl (0.76-1.46); GFR (African American) 71 ML/MIN (>60); Globulin 3.2 gm/dl (1.3-3.2); Glucose 242 mg/dL (74-106); HDL Cholesterol 34 mg/dL (29-89); LDL Cholesterol 80 mg/dL (0-130); Potassium 4.1 mmoL/L (3.5-5.1); Sodium 139 mmol/L (136-145); Thyroid Stimulating Hormone 0.75 uIU/ml (0.358-3.740); Total Protein,Serum 6.3 gm/dL (6.4-8.2); Triglycerides 219 mg/dL (30-200); VLDL Cholesterol 44 mg/dL (0-40)
[2018-08-20 16:23] LABS: Amphetamine/Metha Screen,Urine Negative ng/mL (<1000); Barbiturates Screen,Urine Negative ng/mL (<200); Benzodiazepines Screen,Urine Negative ng/mL (<200); Cannabinoid Screen,Urine Negative ng/mL (<50); Cocaine Screen,Urine Negative ng/mL (<300); Methadone Screen,Urine Negative ng/mL (<300); Opiate Screen,Urine Negative ng/mL (<300); Phencyclidine Screen,Urine Negative ng/mL (<25)
[2018-08-20 16:50] LABS: Hemoglobin A1C 11.3 % (0.0-7.0)
[2018-08-22 20:44] LABS: Thyroid Peroxidase Antibodies 20 IU/mL (0-34)
== END ==
PROVIDERS: Visit Provider Nurse Practitioner Family
DX: D72.829 Elevated white blood cell count, unspecified (principal); E11.9 Type 2 diabetes mellitus without complications; E66.9 Obesity, unspecified; E78.5 Hyperlipidemia, unspecified; R53.83 Other fatigue; R68.89 Other general symptoms and signs; Z79.4 Long term (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
CPT/HCPCS: 80053; 80061; 80305; 82043; 83036; 84439; 84443; 85025; 86376

== ENCOUNTER 2018-12-26 10:00 | Outpatient (RCR) | payer OTHER, SELFPAY ==
--- NOTE | 2018-10-24 10:00 | HMH.PTOPWND ---
Rehab Outpt Wound Evaluation Rehab OP Wound Evaluation Start: 10/24/18 09:03 Freq: Status: Active Protocol: Document 10/24/18 09:53 RUBIO (Rec: 10/24/18 10:00 RUBIO [id number]) Electronically Signed By Adarsh Momin, PT 10/24/18 09:53 Subjective/History History History Pt is 57 yowf who presents with c/o Right UE edema, pain, and intermittent numbness steadily worse x ~ 7 yrs S/P right mastectomy due to breast cancer. She reports 17 lymph nodes removed and edema began almost immediately after her mastectomy. She reports she is now having increased pain in the right forearm, worse at the wrist and increased numbness in the right hand. She has PMH of COPD, DM-II, CHF, Asthma, GERD, HTN, pacemaker, seizures. Subjective Subjective She reports 3/10 pain currently and 5/10 pain at rest. Lymphedema Eval Classification of Lymphedema Secondary Lymphedema Yes Stemmer's sign Stemmer's Sign yes Stage of Lymphedema Lymphedema stages Stage II (Pitting edema, increased fibrosis w/ decreased pitting) Skin Changes Dry Skin Yes Skin Folds Yes Other Changes Yes Pain Scale Pain Scale (0-10) 5 Affected Extremities Areas Affected by Lymphedema/Edema Right Upper Extremity,Abdomen, Right Breast,Right Axilla Manual Lymphatic Drainage Treatment Area MLD Treatment Area Right Upper Extremity,Abdomen, Right Breast,Right Axilla,Sub Axiallary Region Wound Problems/Impairments Impairments Problems/Impairmments Palpation Tenderness,Impaired Range of Motion,Impaired Strength,Impaired Endurance, Impaired Lifting,Impaired Dressing,Impaired Recreational Activities,Increased Edema, Lymphedema Present,Subjective C/O Pain,Impaired Self Care/ Self Management Prognosis Rehab Potential Good Clinical Impression Consistent with Diagnosis Yes Short Term Goals Number of Weeks
--- NOTE | 2018-11-28 09:53 | HMH.RHREAS ---
Rehab Reassessment Rehab OP Re-assessment Start: 11/28/18 09:50 Freq: Status: Active Protocol: Document 11/28/18 09:50 RUBIO (Rec: 11/28/18 09:53 RUBIO [id number]) Electronically Signed By Adarsh Momin, PT 11/28/18 09:50 Rehab Re-assessment Subjective Subjective Pt reports edema remains in her armpit, but better overall with less pain. Objective Objective Notes Circumferential measurements: R UE total is -10.8 cm since initial eval. Assessment Progress Assessment Progressing as Expected Assessment Notes Pt has decreased edema and tenderness to palpation significantly. Following HEP well. Patient goals met ST,2,3,4,5 Goals Not Met LT,2,3,4,5,6,7,8 Revised Goals none Plan Plan Continue per initial POC Frequency of Therapy 2 x/wk Duration of therapy 8 wks Time and Billing Re-Eval Time 15 Re-Eval Billing Units 1 PHYSICIAN CERTIFICATION: I certify the specified therapy services for Stephanie Kulkarni are required, authorized, and reviewed every 30 days.
== END 2018-12-26 10:05 | disposition home or self-care (01) ==
LOC: PT 10:00
PROVIDERS: Visit Provider Nurse Practitioner Family
DX: I89.0 Lymphedema, not elsewhere classified (principal)
CPT/HCPCS: 97010; 97110; 97140; 97162; 97164

== ENCOUNTER → 2018-12-31 14:17 | Outpatient (CLI) | payer OTHER, SELFPAY ==
[2018-12-31 14:53] LABS: Basophils # 0.1 K/mm3 (0-0.2); Basophils % 0.5 % (0.1-2.0); Eosinophils # 0.2 K/mm3 (0.0-0.4); Hematocrit 45.8 % (37.0-47.0); Hemoglobin 14.3 g/dL (12.2-16.2); Lymphocytes # 2.5 K/mm3 (0.7-4.5); Lymphocytes % 24.2 % (10-50); Mean Corpuscular HGB Conc 31.1 g/dL (31.8-35.4); Mean Corpuscular Hemoglobin 27.6 pg (27.0-31.2); Mean Corpuscular Volume 88.8 fl (81-99); Mean Platelet Volume 7.8 fl (7.4-10.4); Monocytes # 0.6 K/mm3 (0.1-1.0); Monocytes % 5.6 % (1.7-9.3); Neutrophils # 6.9 K/mm3 (1.8-7.8); Neutrophils % 67.7 % (37.0-80.0); Platelet Count 380 K/mm3 (142-424); Red Blood Count 5.16 M/mm3 (4.20-5.40); Red Cell Distribution Width 14.5 % (11.5-17.5); White Blood Count 10.2 K/mm3 (4.8-10.8)
[2018-12-31 15:27] LABS: Alanine Aminotransferase 13 U/L (12-78); Albumin Level 3.3 gm/dL (3.4-5.0); Alkaline Phosphatase 139 U/L (46-116); Anion Gap 12.6 mEq/L (5-15); Aspartate Amino Transferase 7 U/L (15-37); Bilirubin,Total 0.5 mg/dL (0.2-1.0); Blood Urea Nitrogen 17 mg/dL (7-18); Calcium 8.7 mg/dL (8.5-10.1); Carbon Dioxide 29 mmol/L (21.0-32.0); Chloride 100 mmol/L (98-107); Chol/HDL Ratio 4.3 (1-3.5); Cholesterol 164 mg/dL (140-200); Creatinine,Serum 1.11 mg/dL (0.55-1.02); Estimated Glomerular Filt Rate 50 ml/min (>60); GFR (African American) 61 ML/MIN (>60); Globulin 3.3 gm/dl (1.3-3.2); Glucose 205 mg/dL (74-106); HDL Cholesterol 38 mg/dL (29-89); LDL Cholesterol 85 mg/dL (0-130); Potassium 3.6 mmoL/L (3.5-5.1); Sodium 138 mmol/L (136-145); T4 (Thyroxine) 7.5 ug/dl (4.7-13.3); Thyroid Stimulating Hormone 0.91 uIU/ml (0.358-3.740); Total Protein,Serum 6.6 gm/dL (6.4-8.2); Triglycerides 207 mg/dL (30-200); VLDL Cholesterol 41 mg/dL (0-40)
[2018-12-31 16:34] LABS: Hemoglobin A1C 9.9 % (0.0-7.0)
== END ==
PROVIDERS: Visit Provider Nurse Practitioner Family
DX: E11.9 Type 2 diabetes mellitus without complications (principal); Z79.4 Long term (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
CPT/HCPCS: 80053; 80061; 83036; 84436; 84443; 85025

== ENCOUNTER → 2019-01-05 12:02 | Outpatient (CLI) | payer OTHER, SELFPAY ==
--- NOTE | 2019-01-05 | CA_ITS ---
APPROVED REPORT Exam: Pharmacologic Technologist: Eryn Gustafson Ht: 5 ft 7 in Wt: 215 lbs BSA: 2.09 m2 HR: 71 bpm BP: 127/61 mmHg Indications: Chest pain, Shortness of Breath, Carotid Bruit Medical History Medications: Furosemide (LASIX),,,,, Isosorbide,,,,, Aspirin,,,,, Cephalexin,,,,, Gabapentin,,,,, Losartan,,,,, Pantoprazole,,,,, Atorvastatin,,,,, INSULIN,,,,, Albuterol,,,,, BisOPROLOL,,,,, Cyclobenzaprine,,,,, Stress Test Details Test: LEXISCAN HR Resting HR: 71 bpm Max Heart Rate (APMHR): 160 bpm Max HR Achieved: 86 bpm Target HR (85% APMHR): 136 bpm % of APMHR: 53 Recovery HR: 76 bpm BP Resting BP: 127.0/61.0 mmHg Max BP: 176.0/68.0 mmHg Recovery BP: 166.0/70.0 mmHg ECG Clinical Reason for Termination: Completed Protocol Exercise duration: 04:04 min Highest Stage Achieved: Stress ECG Conclusion Resting ECG: Normal Sinus Rhythm Symptoms: No chest pain Arrhythmias/Ectopy: None ST-T Changes: Less than 1.[address] segment changes. Conclusion: Non-Diagnostic. See nuclear report for further information. Electronically signed by : Channing Jennings, 01/07/2019 15:08:03
--- NOTE | 2019-01-05 12:04 | NM_ITS ---
APPROVED REPORT Exam: Nuclear Stress Test Indication: Chest pain, SOB, Palpitations, Fatigue, HTN, CAD, Hx of [place], DM, High cholesterol, Tobacco use, Family history Patient Location: Outpatient Stress Tech: Eryn Gustafson [place] Tech:Rhiannon Simon, ARRT, RT (R)(N) Ht: 5 ft 7 in Wt: 215 lbs Bra Size: DD HR: 71 bpm BP: 127/61 mmHg BSA: 2.09 m2 BMI: 33.6 History: Chest pain, SOB, Palpitations, Fatigue, HTN, CAD, Hx of [place], DM, High cholesterol, Tobacco use, Family history Procedure: Patient received a 0.4 mg of intravenous Lexiscan, resting heart rate 71 bpm, resting blood pressure 127/61 mmHg, with Lexiscan maximum heart rate achived was 80 bpm which is % of the maximum predicted heart rate and blood pressure was 176/68 mmHg. With Lexiscan, patient denied any complaint of chest pain. Cardiac Stress and Resting SPECT Images: Cardiac Stress and Resting SPECT images were obtained using technetium 99m Myoview 32.3 mCi stress and 10.23 mCi at rest. EF is lower limits of normal at 52% with inferior wall hypokinesia There is a small reversible defect within the inferior wall extending to the apex consistent with an area of ischemia. Conclusion: EF is lower limits of normal at 52% with inferior wall hypokinesia Inferio-apical ischemia Electronically signed by : Jordan Du MD 01/07/2019 09:57:39
--- NOTE | 2019-01-05 12:23 | HMH.ITSHM ---
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 []RIVAROXABAN PANTOPRAZOLE LOSARTAN ISOSORBIDE INSULIN HYDROXYZINE GABAPENTIN FUROSEMIDE DILTIAZEM CYCLOBENZAPRINE CEPHALEXIN BISOPROLOL ATORVASTATIN ASA ALBUTEROL NYSTATIN
--- NOTE | 2019-01-05 13:53 | CA_ITS ---
[facility] RADIOLOGICAL CONSULTATION Patient Name : ABISAI AGUIAL X-RAY # : [id number] Physician: FRANK GARNICA AGE: 58Y : 1960 00:00:00 ( F ) Exam : CA ECHO DOPPLER COMPLETE ACC # : [id number] Study Date : 01/05/2019 13:54:59 Patient Class : O FINAL REPORT CLINICAL DATA: FINDINGS: TRANSCRIBED REPORT EXAM: Comprehensive 2D, Doppler, and color-flow Echocardiogram Picture Copyist: Leeann Yap RDCS Ht: 5 ft 6 in Wt: 217lbs BSA: 2.07 BP: 160/80 mmHg 2D Dimensions LVOT 1.96 cm (M/F) 1.5-2.5 M-Mode Dimensions RVDd 2.83 cm (0.9-2.6) LVDd 6.66 cm (3.5-5.7) LVDs 4.84 cm (3.5-5.7) IVSd 0.73 cm (0.6-1.1) PWd 0.77 cm (0.6-1.1) EF (Teich) 52.00% FS 27.30% EDV (Teich) 228.20 mL ESV (Teich) 109.60 mL LV Diastology E/A Ratio 0.87 Mitral Valve MV A Velocity 81.00 (40-130 cm/s) Electronically signed by : IMPRESSION: Dictated by at Transcribed by at
--- NOTE | 2019-01-05 13:56 | CA_ITS ---
APPROVED REPORT Book Jogger: SCOTT Laterality: Bilateral Indications: left carotid bruit Doppler Spectral Velocity Analysis ECA (R) 62.90/ cm/s ECA (L) 310.90/ cm/s dICA (R) 177.50/34.60 cm/s dCCA (L) 60.70/11.30 cm/s Art (R) 213.00/58.00 cm/s pCCA (L) 53.80/11.80 cm/s pICA (R) 346.00/80.00 cm/s Vert (L) 113.70/ cm/s dCCA (R) 98.00/21.70 cm/s pCCA (R) 98.00/21.00 cm/s Vert (R) 58.40/ cm/s ICA/CCA Findings Duplex evaluation demonstrates stenosis of the right proximal internal carotid artery in the range of 50-69% with PSV =140 cm/sec, EDV <100 cm/sec, and IC/CC Ratio <4.0. No color flow or doppler signal in left ICA question occlusion Left ICA requires further evaluation.Antegrade flow seen bilateral vertebral arteries. This was a technically difficult exam. Conclusion Duplex evaluation demonstrates stenosis of the right proximal internal carotid artery in the range of 50-69% No color flow or doppler signal in left ICA question occlusion Left ICA requires further evaluation. Suggest CTA for further evaluation Electronically signed by : Jordan Du MD 01/09/2019 07:39:33
== END ==
PROVIDERS: PCP Nurse Practitioner Family; Visit Provider Internal Medicine Cardiovascular Disease
DX: E11.8 Type 2 diabetes mellitus with unspecified complications (principal); I25.118 Atherosclerotic heart disease of native coronary artery with other forms of angina pectoris; I50.9 Heart failure, unspecified; J44.9 Chronic obstructive pulmonary disease, unspecified; R06.02 Shortness of breath; R07.9 Chest pain, unspecified; F17.200 Nicotine dependence, unspecified, uncomplicated; G47.33 Obstructive sleep apnea (adult) (pediatric); I10 Essential (primary) hypertension; I42.9 Cardiomyopathy, unspecified; I48.0 Paroxysmal atrial fibrillation; R09.89 Other specified symptoms and signs involving the circulatory and respiratory systems; R94.31 Abnormal electrocardiogram [ECG] [EKG]; Z87.891 Personal history of nicotine dependence; Z79.4 Long term (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
CPT/HCPCS: 78452; 93017; 93306; 93880; A9502; J2785

== ENCOUNTER → 2019-01-13 12:17 | Outpatient (CLI) | payer OTHER, SELFPAY ==
--- NOTE | 2019-01-13 12:23 | XR_ITS ---
PROCEDURE: XR CHEST 2V CLINICAL HISTORY: elevated alk phos COMPARISON: CXR2V XR chest 2V from 10/26/2017 CXR2V XR chest 2V from 12/24/2017 CXR2V XR chest 2V from 02/25/[id number] abdomen pelvis w con from 07/24/2018 FINDINGS: The cardiomediastinal silhouette and pulmonary vascularity are within normal limits. Surgical clips are present in the right axilla with hyperlucency of the right lung compared to the left consistent with prior right mastectomy. Multiple granulomas are present. No lobar consolidation or collapse. No acute bony findings . IMPRESSION: Postsurgical change, no change with no acute finding Dictated by: Jordan Du MD 01/13/2019 17:37 Electronically signed by Jordan Du MD in [place] 01/13/2019 17:37
== END ==
PROVIDERS: PCP Nurse Practitioner Family; Visit Provider Nurse Practitioner Family
DX: J44.9 Chronic obstructive pulmonary disease, unspecified (principal); R74.8 Abnormal levels of other serum enzymes
CPT/HCPCS: 71046

== ENCOUNTER → 2019-01-15 13:58 | Outpatient (CLI) | payer OTHER, SELFPAY ==
--- NOTE | 2019-01-15 14:01 | CA_ITS ---
APPROVED REPORT Psychiatric Social Worker Supervisor: Olivia Pete RVT Study Quality: Adequate Indications: HTN Risk Factors Hypertension Hyperlipidemia Obesity Diabetes Smoking Renal Artery Doppler Proximal (R) 238.9/ cm/sec Mid (R) 108.4/ cm/sec Distal (R) 65.0/ cm/sec Renal Aorta Ratio (R) 3.13 Segmental A. (R) / cm/sec RI: 0.69 Segmental A. Sup (R) 53.7/16.3 cm/sec Segmental A. Mid (R) 48.9/6.1 cm/sec Segmental A. Inf (R) 30.4/9.3 cm/sec Mid (L) 153.3/ cm/sec Distal (L) 127.0/ cm/sec Renal Aorta Ratio (L) 2.01 Segmental A. (L) / cm/sec RI: 0.85 Segmental A. Sup (L) 35.3/7.8 cm/sec Segmental A. Mid (L) 58.8/8.7 cm/sec Segmental A. Inf (L) 31.2/6.9 cm/sec Renal Measurements Kidney Size (R) 9.3x6.4 cm Cortical Thickness (R) 0.8 cm Kidney Size (L) 10.8x6.9 cm Cortical Thickness (L) 1.2 cm Findings Study suggests greater than 60% stenosis of the right renal artery. Study suggests normal left renal artery. Non-visualization of the proximal left renal artery. 2.5cm cyst lower pole of right kidney. 1.7cm cyst lower pole of left kidney. Conclusion Study suggests greater than 60% stenosis of the right renal artery. Consider CTA to confirm. Study suggests normal left renal artery. Non-visualization of the proximal left renal artery. 2.5cm cyst lower pole of right kidney. 1.7cm cyst lower pole of left kidney. Electronically signed by : Jordan Du MD 01/16/2019 17:28:36
== END ==
PROVIDERS: PCP Nurse Practitioner Family; Visit Provider Physician Assistant
DX: I11.0 Hypertensive heart disease with heart failure (principal)
CPT/HCPCS: 93976

== ENCOUNTER 2019-06-27 13:46 | Emergency (ER) | payer MEDICAID, SELFPAY ==
[2019-06-27 13:47] VITALS: BP 124/74; PULSE 72; RESP 18; TEMP 36.3; O2SAT 98; BMI 32.8
--- NOTE | 2019-06-27 13:58 | ECG_ITS ---
APPROVED REPORT Exam: Resting ECG HR:65 bpm ECG Measurements Heart Rate 65 AXES KS 164 P 64 QRSd 92 QRS 5 QT 464 T 44 QTc 482 <Conclusion> Normal sinus rhythm Prolonged QT Abnormal ECG Electronically signed by : Kam Medley, 06/28/2019 21:08:38
--- NOTE | 2019-06-27 14:00 | XR_ITS ---
PROCEDURE: XR CHEST AP CLINICAL HISTORY: SOB COMPARISON: CXR2V XR chest 2V from 12/24/2017 CXR2V XR chest 2V from 02/25/2018 XR CHEST 2V from 01/13/2019 FINDINGS: The cardiomediastinal silhouette and pulmonary vascularity are within normal limits. The lungs are clear without infiltrates, suspicious nodules, or pleural effusions. Lines overlying the chest. No acute bony abnormalities. IMPRESSION: No acute findings. Dictated by: Dr. Dewey Lira MD 06/27/2019 14:[address] Dewey Lira MD in [place] 06/27/2019 14:40
--- NOTE | 2019-06-27 14:05 | PC.NURSE ---
Rad at bedside
[2019-06-27 14:10] VITALS: BMI 32.8
[2019-06-27 14:23] LABS: Basophils # 0.1 K/mm3 (0-0.2); Basophils % 0.7 % (0.1-2.0); Eosinophils # 0.2 K/mm3 (0.0-0.4); Eosinophils % 2.4 % (0.1-12.0); Lymphocytes # 2.5 K/mm3 (0.7-4.5); Mean Corpuscular HGB Conc 31.7 g/dL (31.8-35.4); Mean Corpuscular Volume 91.3 fl (81-99); Mean Platelet Volume 7.4 fl (7.4-10.4); Monocytes # 0.5 K/mm3 (0.1-1.0); Monocytes % 5.2 % (1.7-9.3); Neutrophils # 6.8 K/mm3 (1.8-7.8); Neutrophils % 66.9 % (37.0-80.0); Platelet Count 327 K/mm3 (142-424); Red Blood Count 4.49 M/mm3 (4.20-5.40); Red Cell Distribution Width 14.2 % (11.5-17.5); White Blood Count 10.1 K/mm3 (4.8-10.8)
--- NOTE | 2019-06-27 14:23 | CT_ITS ---
PROCEDURE: CT HEAD/BRAIN WO CON CLINICAL INDICATION: syncope, no LOC, patient did not hit head COMPARISON: No exams were available for comparison TECHNIQUE: Axial images obtained. All CT scans at the facility use one or more dose reduction, viz: automated exposure control, ma/kV adjustment per patient size (including targeted exams where dose is matched to indication, i.e. head), or iterative reconstruction technique. FINDINGS: No midline shift, mass effect, intracranial hemorrhage, hydrocephalus, or extra-axial fluid collection is evident. There is mild motion artifact on several of the images. There is a focal area of hypodensity left parieto-occipital location primarily involving the smith matter and likely due to an old ischemic infarct. If there is a clinical suspicion of a possible subacute infarct, consider a follow-up MRI scan nonemergent with and without IV contrast. The sylvian fissures and cortical sulci are mildly prominent. The calvarium has an unremarkable appearance. There is mild diffuse rightward bowing of the nasal septum. No mastoid effusion. No sinus air-fluid level. 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 Dewey Lira MD 06/27/2019 14:[address] Dewey Lira MD in [place] 06/27/2019 14:48
[2019-06-27 14:25] LABS: Appearance,Urine CLEAR (Clear); Bilirubin,Urine Negative (Negative); Blood, Urine Negative (Negative); Color,Urine YELLOW (Yellow); Glucose,Urine (UA) Negative (Negative); Ketones,Urine Negative (Negative); Leukocyte Esterase,Urine Negative (Negative); Microscopic, Urine URINE MICROSCOPIC (MICROSCOPIC); Nitrate,Urine Negative (Negative); PH,Urine 5.5 (5.0-8.5); Protein,Urine 1+ (Negative); Specific Gravity, Urine >= 1.030 (1.005-1.030); Urobilinogen,Urine 0.2 EU/dl (0.2)
[2019-06-27 14:25] LABS: Chloride 97 mmol/L (98-107)
[2019-06-27 14:26] LABS: Potassium 4.9 mmoL/L (3.5-5.1); Sodium 132 mmol/L (136-145)
[2019-06-27 14:28] LABS: Alanine Aminotransferase 16 U/L (12-78); Albumin Level 3.8 g/dl (3.5-5.0); Alkaline Phosphatase 116 U/L (38-126); Aspartate Amino Transferase 23 U/L (14-36); Bilirubin,Indirect 0.3 mg/dL (0.0-0.9); Bilirubin,Total 0.3 mg/dl (0.2-1.3); Bilirubin,Unconjugated 0.3 mg/dL (0.0-1.1); Lactic Acid 1.2 mmol/L (0.7-2.1); Total Protein,Serum 6.8 g/dl (6.3-8.2)
[2019-06-27 14:29] LABS: Anion Gap 13.9 mEq/L (5-15); Blood Urea Nitrogen 40 mg/dl (7-17); Calcium 8.8 mg/dl (8.4-10.2); Carbon Dioxide 26 mmol/L (22.0-30.0); Creatinine Clearance Estimated 60 mL/min (50-200); Estimated Glomerular Filt Rate 35 ml/min (>60); GFR (African American) 43 ML/MIN (>60); Glucose 293 mg/dl (74-100)
[2019-06-27 14:32] LABS: Bacteria,Urine Trace /lpf; Hyaline Casts,Urine Occasional #/lpf (0)
[2019-06-27 14:40] LABS: Troponin I < 0.01 ng/ml (0.00-0.034)
[2019-06-27 14:50] LABS: NT Pro Brain Natriuretic Pep. 126 pg/mL (0-125)
[2019-06-27 14:58] VITALS: BP 129/64; PULSE 64; O2SAT 92
--- NOTE | 2019-06-27 15:56 | PC.NURSE ---
Pt up to restroom without assistance at this time.
--- NOTE | 2019-06-27 16:02 | HMH.EDSYNC ---
ED Disposition Clinical Impression: Orthostatic hypotension, Vasovagal syncope Disposition: Home, Self-Care Condition on Discharge: Good Instructions: Fainting, Vertigo Additional Instructions: Please follow-up with your surgeon to get the CEA done. Referrals: Madiha Villarreal APRN [Primary Care Provider] - - Critical Care Critical Care Time: No Attestation: On 06/27/19, the high probability of a clinically significant, sudden or life threatening deterioration of the following system(s) required my full and direct attention, intervention and personal management. The time I documented below is in addition to time spent performing reported procedures but includes the following listed in this critical care notation. Medical Decision Making - Medical Records Medical records reviewed: Yes: I reviewed the patient's medical records. - Gianfranco Inquiry Pt receiving controlled substance: No Vital Signs: 06/27/19 13:47 06/27/19 14:58 Temperature 97.4 F L Temperature Source Oral Pulse Rate [Left Radial] 72 64 Respiratory Rate 18 Blood Pressure [Right Arm] 124/74 129/64 Blood Pressure Mean [Right Arm] 90 85 Blood Pressure Source [Right Arm] Automatic Cuff Blood Pressure Position [Right Arm] Sitting Sitting 02 Sat by Pulse Oximetry 98 92 L Oxygen Delivery Method Room Air Room Air - Lab Data Lab results reviewed: Yes: I reviewed the patient's lab results. Lab Results 06/27/19 14:05: WBC 10.1, RBC 4.49, Hgb 13.0, Hct 41.0, MCV 91.3, MCH 29.0, MCHC 31.7 L, RDW 14.2, Plt Count 327, MPV 7.4, Neut % (Auto) 66.9, Lymph % (Auto) 25.0, [place] % (Auto) 5.2, Eos % (Auto) 2.4, Baso % (Auto) 0.7, Neut # (Auto) 6.8, Lymph # (Auto) 2.5, [place] # (Auto) 0.5, Eos # (Auto) 0.2, Baso # (Auto) 0.1 06/27/19 14:05: Sodium 132 L, Potassium 4.9, Chloride 97 L, Carbon Dioxide 26, Anion Gap 13.9, BUN 40 H, Creatinine 1.50 H, Estimated Creat Clear 60, Estimated GFR 35 L, Est GFR ( Amer) 43 L, Glucose 293 H, Calcium 8.8, Troponin I < 0.01 06/27/19 14:05: Lactate 1.2 06/27/19 14:05: Total Bilirubin 0.3, Direct Bilirubin 0.0, Conjugated Bilirubin 0.0, Indirect Bilirubin 0.3, Unconjugated Bilirubin 0.3, AST 23, ALT 16, Alkaline Phosphatase 116, Total Protein 6.8, Albumin 3.8 06/27/19 14:05: NT-Pro-B Natriuret Pep 126 H 06/27/19 14:05: Influenza Type A Ag Negative, Influenza Type B Ag Negative 06/27/19 14:10: Urine Color Yellow, Urine Appearance Clear, Urine pH 5.5, Ur Specific Brave >= 1.030, Urine Protein 1+, Urine Glucose (UA) Negative, Urine Ketones Negative, Urine Blood Negative, Urine Nitrate Negative, Urine Bilirubin Negative, Urine Urobilinogen 0.2, Ur Leukocyte Esterase Negative, Urine WBC 3-5, Ur Squamous Epith Cells 3-5, Urine Bacteria Trace, Hyaline Casts Occasional Result diagrams: 06/27/19 14:05 06/27/19 14:05 Orders (Tests/Meds): ORDERS Category Date Time Status Troponin I Q3H Lab 06/27/19 17:15 Ordered Troponin I Q3H Lab 06/27/19 20:15 Ordered Blood Culture Stat Micro 06/27/19 14:05 Received - CT Data CT Scan: Head Time Received: 16:00 Preliminary Findings: Normal/NAD - ECG Data Tracing #1 I reviewed this ECG and interpreted as documented below: Normal Sinus Rhythm: Yes Syncope HPI - General Chief Complaint: Dizziness Stated Complaint: dizzy weak Time Seen by Provider: 06/27/19 16:00 Mode of Arrival: Ambulatory Source of Information: Patient Limitations: No Limitations Description of Symptoms (Recalled from ER Triage Doc. by RN): to ed per pvt car with c/o dizziness room spinning worse with sudden movement, sob starting today. states today she was getting out of the car and fell, daughter states pt was shaking pt and family denies any confusion or incontinence. - History of Present Illness HPI narrative: 58-year-old female presents the ED after having a syncopal episode earlier today. She states that she is had a couple of these in the past that she has been worked up for it in the p
[2019-06-27 16:10] VITALS: BP 125/74; PULSE 78; RESP 16; TEMP 36.6; O2SAT 98
== END 2019-06-27 16:11 | disposition home or self-care (01) ==
PROVIDERS: Emergency Provider Family Medicine; PCP Nurse Practitioner Family
DX: I95.1 Orthostatic hypotension (principal); J44.9 Chronic obstructive pulmonary disease, unspecified; I11.9 Hypertensive heart disease without heart failure; Z99.81 Dependence on supplemental oxygen; I25.10 Atherosclerotic heart disease of native coronary artery without angina pectoris; Z86.79 Personal history of other diseases of the circulatory system; Z95.0 Presence of cardiac pacemaker; E11.9 Type 2 diabetes mellitus without complications; E78.5 Hyperlipidemia, unspecified; K21.9 Gastro-esophageal reflux disease without esophagitis; Z72.0 Tobacco use
CPT/HCPCS: 70450; 71045; 80048; 80076; 81001; 83605; 83880; 84484; 85025; 87040; 87275; 87276; 93005; 99283; 99284

== ENCOUNTER → 2019-09-02 14:11 | Outpatient (CLI) | payer MEDICAID, SELFPAY ==
[2019-09-02 14:35] LABS: Chloride 100 mmol/L (98-107)
[2019-09-02 14:36] LABS: Potassium 4.8 mmoL/L (3.5-5.1); Sodium 136 mmol/L (136-145)
[2019-09-02 14:38] LABS: Alanine Aminotransferase 18 U/L (12-78); Albumin Level 3.8 g/dl (3.5-5.0); Albumin/Globulin Ratio 1.5 (1.1-1.8); Anion Gap 9.8 mEq/L (5-15); Aspartate Amino Transferase 22 U/L (14-36); Blood Urea Nitrogen 18 mg/dl (7-17); Carbon Dioxide 31 mmol/L (22.0-30.0); Estimated Glomerular Filt Rate 51 ml/min (>60); GFR (African American) 61 ML/MIN (>60); Globulin 2.6 g/dL (1.3-3.2); Total Protein,Serum 6.4 g/dl (6.3-8.2)
[2019-09-02 14:39] LABS: Calcium 9.6 mg/dl (8.4-10.2); Chol/HDL Ratio 3.5 (1-3.5); Cholesterol 161 mg/dl (140-200); Glucose 137 mg/dl (74-100); HDL Cholesterol 46 mg/dl (40-60); Triglycerides 210 mg/dl (30-150); VLDL Cholesterol 42 mg/dL (0-40)
[2019-09-02 14:43] LABS: Bilirubin,Total 0.5 mg/dl (0.2-1.3)
[2019-09-02 14:51] LABS: Direct LDL Cholesterol 93.18 mg/dL (100-129)
[2019-09-02 15:03] LABS: Basophils # 0.1 K/mm3 (0-0.2); Basophils % 0.6 % (0.1-2.0); Eosinophils # 0.2 K/mm3 (0.0-0.4); Eosinophils % 1.8 % (0.1-12.0); Hematocrit 41.9 % (37.0-47.0); Hemoglobin 13.6 g/dL (12.2-16.2); Lymphocytes # 3.4 K/mm3 (0.7-4.5); Lymphocytes % 30.2 % (10-50); Mean Corpuscular HGB Conc 32.4 g/dL (31.8-35.4); Mean Corpuscular Hemoglobin 29.5 pg (27.0-31.2); Mean Corpuscular Volume 91.1 fl (81-99); Mean Platelet Volume 7.5 fl (7.4-10.4); Monocytes # 0.5 K/mm3 (0.1-1.0); Monocytes % 4.8 % (1.7-9.3); Neutrophils # 7.1 K/mm3 (1.8-7.8); Neutrophils % 62.7 % (37.0-80.0); Platelet Count 345 K/mm3 (142-424); Red Blood Count 4.59 M/mm3 (4.20-5.40); Red Cell Distribution Width 13.8 % (11.5-17.5); White Blood Count 11.3 K/mm3 (4.8-10.8)
[2019-09-02 15:10] LABS: Thyroid Stimulating Hormone 1.06 uIU/mL (0.465-4.68)
[2019-09-02 15:37] LABS: Alkaline Phosphatase 130 U/L (38-126)
[2019-09-02 17:44] LABS: Creatinine,Urine Random 36 mg/dL (Not Estab.)
[2019-09-02 17:47] LABS: Benzodiazepines Screen,Urine Negative ng/ml (<200)
[2019-09-02 17:48] LABS: Amphetamine/Metha Screen,Urine Negative ng/ml (<1000); Barbiturates Screen,Urine Negative ng/ml (<200)
[2019-09-02 17:49] LABS: Methadone Screen,Urine Negative ng/ml (<300)
[2019-09-02 17:50] LABS: Cannabinoid Screen,Urine Negative ng/ml (<50); Cocaine Screen,Urine Negative ng/ml (<300)
[2019-09-02 17:51] LABS: Opiate Screen,Urine Negative ng/ml (<300)
[2019-09-02 17:52] LABS: Phencyclidine Screen,Urine Negative ng/ml (<25)
[2019-09-02 18:00] LABS: Microalbumin/Creatinine Ratio 718.6
[2019-09-02 19:57] LABS: Hemoglobin A1C 7.9 % (4.0-6.0)
== END ==
PROVIDERS: Visit Provider Nurse Practitioner Family
DX: E11.9 Type 2 diabetes mellitus without complications (principal); R60.1 Generalized edema; G62.9 Polyneuropathy, unspecified; Z79.4 Long term (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; Z79.899 Other long term (current) drug therapy
CPT/HCPCS: 80053; 80061; 80305; 82043; 82570; 83036; 84436; 84443; 85025

== ENCOUNTER → 2019-10-12 14:50 | Outpatient (CLI) | payer MEDICAID, SELFPAY ==
[2019-10-12 14:58] LABS: Microscopic, Urine URINE MICROSCOPIC (MICROSCOPIC)
[2019-10-12 15:30] LABS: Appearance,Urine CLEAR (Clear); Bilirubin,Urine Negative (Negative); Blood, Urine Negative (Negative); Color,Urine YELLOW (Yellow); Glucose,Urine (UA) Negative (Negative); Ketones,Urine Negative (Negative); Leukocyte Esterase,Urine Negative (Negative); Nitrate,Urine Negative (Negative); Protein,Urine 1+ (Negative); Specific Gravity, Urine 1.015 (1.005-1.030); Urobilinogen,Urine 0.2 EU/dl (0.2)
[2019-10-12 15:40] LABS: Basophils # 0.1 K/mm3 (0-0.2); Basophils % 0.5 % (0.1-2.0); Eosinophils # 0.2 K/mm3 (0.0-0.4); Eosinophils % 2.2 % (0.1-12.0); Hematocrit 43.6 % (37.0-47.0); Hemoglobin 14.4 g/dL (12.2-16.2); Lymphocytes # 2.8 K/mm3 (0.7-4.5); Lymphocytes % 25.6 % (10-50); Mean Corpuscular HGB Conc 33.1 g/dL (31.8-35.4); Mean Corpuscular Hemoglobin 29.2 pg (27.0-31.2); Mean Corpuscular Volume 88.4 fl (81-99); Mean Platelet Volume 7.6 fl (7.4-10.4); Monocytes # 0.5 K/mm3 (0.1-1.0); Monocytes % 4.5 % (1.7-9.3); Neutrophils # 7.4 K/mm3 (1.8-7.8); Neutrophils % 67.1 % (37.0-80.0); Platelet Count 368 K/mm3 (142-424); Red Blood Count 4.93 M/mm3 (4.20-5.40); Red Cell Distribution Width 14.1 % (11.5-17.5)
[2019-10-12 16:04] LABS: Albumin Level 4.1 g/dl (3.5-5.0); Anion Gap 13.6 mEq/L (5-15); Blood Urea Nitrogen 21 mg/dl (7-17); Calcium 9.5 mg/dl (8.4-10.2); Carbon Dioxide 31 mmol/L (22.0-30.0); Chloride 99 mmol/L (98-107); Estimated Glomerular Filt Rate 46 ml/min (>60); GFR (African American) 55 ML/MIN (>60); Glucose 122 mg/dl (74-100); Phosphorous 4.3 mg/dl (2.5-4.5); Potassium 4.6 mmoL/L (3.5-5.1); Sodium 139 mmol/L (136-145)
[2019-10-12 16:16] LABS: Intact Parathyroid Hormone 216.3 pg/mL (7.5-53.5)
[2019-10-12 16:22] LABS: 25-OH Vitamin D, Total 14.1 ng/mL (30-100)
[2019-10-12 16:36] LABS: Creatinine,Urine Random 44 mg/dL (Not Estab.)
[2019-10-12 16:37] LABS: Bacteria,Urine Trace /lpf; RBC,Urine Occasional #/hpf (0-3)
== END ==
PROVIDERS: Visit Provider Internal Medicine Nephrology
DX: N18.3 Chronic kidney disease, stage 3 (moderate) (principal)
CPT/HCPCS: 36415; 80069; 81001; 82306; 82570; 83970; 84155; 85025

== ENCOUNTER 2020-01-23 23:34 | Emergency (ER) | payer MEDICAID, SELFPAY ==
[2020-01-23 23:37] VITALS: BP 135/74; PULSE 89; RESP 18; TEMP 36.6; O2SAT 95; BMI 33.9
[2020-01-24] VITALS: BP 122/59; PULSE 82; RESP 18; O2SAT 94
--- NOTE | 2020-01-24 00:06 | XR_ITS ---
PROCEDURE: XR CHEST 2V Referring Doctor: Justin Flores Patient Age:59Y CLINICAL HISTORY: cough cough dizziness smoker previous Breast cancer mastectomy 5 years ago with radiation COMPARISON: CR CXR2V XR chest 2V from 02/25/2018 CR XR CHEST 2V from 01/13/2019 CR XR CHEST AP from 06/27/2019 FINDINGS: PA and lateral chest performed today. Upright. These are compared to prior chest films listed above. No significant interval change. No acute findings Relative lucency right chest versus left with clips at right axilla and right chest but these findings reflect the right mastectomy t. the lungs are clear without infiltrates, suspicious nodules, or pleural effusions.. Tiny calcified granuloma towards left lung base is stable Cardiomediastinal silhouette and pulmonary vascularity are within normal limits. No acute bony abnormalities. IMPRESSION: Stable chest with nothing definitely acute Right mastectomy again noted. No pneumonia evident. Dictated by: Audie Varma MD 01/25/2020 00:41 Audie Varma MD in [place] 01/25/2020 00:41
--- NOTE | 2020-01-24 00:06 | ECG_ITS ---
APPROVED REPORT Exam: Resting ECG HR:83 bpm ECG Measurements Heart Rate 83 AXES DC 148 P 53 QRSd 92 QRS -15 QT 414 T 37 QTc 486 Conclusion Normal sinus rhythm Normal ECG Electronically signed by : Kam Medley, 01/24/2020 16:51:44
[2020-01-24 00:14] LABS: Basophils # 0.1 K/mm3 (0-0.2); Basophils % 0.5 % (0.1-2.0); Eosinophils # 0.2 K/mm3 (0.0-0.4); Eosinophils % 1.8 % (0.1-12.0); Hematocrit 44.2 % (37.0-47.0); Hemoglobin 14.7 g/dL (12.2-16.2); Lymphocytes # 2.2 K/mm3 (0.7-4.5); Lymphocytes % 20.4 % (10-50); Mean Corpuscular HGB Conc 33.2 g/dL (31.8-35.4); Mean Corpuscular Hemoglobin 30.2 pg (27.0-31.2); Mean Platelet Volume 7.1 fl (7.4-10.4); Monocytes # 0.5 K/mm3 (0.1-1.0); Monocytes % 4.8 % (1.7-9.3); Neutrophils % 72.6 % (37.0-80.0); Platelet Count 355 K/mm3 (142-424); Red Blood Count 4.86 M/mm3 (4.20-5.40); Red Cell Distribution Width 15.1 % (11.5-17.5)
--- NOTE | 2020-01-24 00:18 | HMH.EDDIZZ ---
ED Disposition Clinical Impression: Renal insufficiency, IDDM (insulin dependent diabetes mellitus) Benign paroxysmal positional vertigo Qualifiers: Laterality: unspecified laterality Qualified Code(s): H81.10 - Benign paroxysmal vertigo, unspecified ear Obesity Qualifiers: Obesity type: due to excess calories Obesity classification: adult class 1 (BMI 30 - 34.9) Serious obesity comorbidity presence: with serious comorbidity Body mass index: BMI 33.0-33.9 Qualified Code(s): E66.09 - Other obesity due to excess calories; Z68.33 - Body mass index [BMI] 33.0-33.9, adult Disposition: Home, Self-Care Condition on Discharge: Good Instructions: Dizziness, Nonvertigo Additional Instructions: see pcp this week for follow up Referrals: Madiha Villarreal APRN [Primary Care Provider] - - Critical Care Critical Care Time: No Attestation: On 01/23/20, the high probability of a clinically significant, sudden or life threatening deterioration of the following system(s) required my full and direct attention, intervention and personal management. The time I documented below is in addition to time spent performing reported procedures but includes the following listed in this critical care notation. Medical Decision Making - Medical Records Medical records reviewed: Yes: I reviewed the patient's medical records. - Gianfranco Inquiry Pt receiving controlled substance: No Vital Signs: 01/23/20 23:37 01/24/20 00:00 01/24/20 00:30 Temperature 97.9 F Temperature Source Oral Pulse Rate [Left Radial] 89 82 81 Respiratory Rate 18 18 18 Blood Pressure [Left Arm] 135/74 122/59 L 114/64 Blood Pressure Mean [Left Arm] 94 80 80 Blood Pressure Source [Left Arm] Automatic Cuff Blood Pressure Position [Left Arm] Supine 02 Sat by Pulse Oximetry 95 94 L 95 Oxygen Delivery Method Room Air Room Air Room Air 01/24/20 01:00 01/24/20 01:30 01/24/20 02:04 Temperature Temperature Source Pulse Rate [Left Radial] 84 92 H 86 Respiratory Rate 18 18 18 Blood Pressure [Left Arm] 92/52 L 102/57 L 97/56 L Blood Pressure Mean [Left Arm] 65 72 69 Blood Pressure Source [Left Arm] Blood Pressure Position [Left Arm] 02 Sat by Pulse Oximetry 93 L 95 94 L Oxygen Delivery Method Room Air Room Air Room Air - Lab Data Lab results reviewed: Yes: I reviewed the patient's lab results. Lab Results 01/24/20 00:01: WBC 11.0 H, RBC 4.86, Hgb 14.7, Hct 44.2, MCV 91.0, MCH 30.2, MCHC 33.2, RDW 15.1, Plt Count 355, MPV 7.1 L, Neut % (Auto) 72.6, Lymph % (Auto) 20.4, [place] % (Auto) 4.8, Eos % (Auto) 1.8, Baso % (Auto) 0.5, Neut # (Auto) 8.0 H, Lymph # (Auto) 2.2, [place] # (Auto) 0.5, Eos # (Auto) 0.2, Baso # (Auto) 0.1 01/24/20 00:01: Sodium 139, Potassium 4.3, Chloride 99, Carbon Dioxide 32 H, Anion Gap 12.3, BUN 29 H, Creatinine 2.10 H, Estimated Creat Clear 42, Estimated GFR 24 L, Est GFR ( Amer) 29 L, Glucose 197 H, Calcium 9.4, Total Bilirubin 0.6, Direct Bilirubin 0.2, Conjugated Bilirubin 0.0, Indirect Bilirubin 0.4, Unconjugated Bilirubin 0.4, AST 28, ALT 22, Alkaline Phosphatase 129 H, Troponin I < 0.01, Total Protein 7.5, Albumin 4.2 01/24/20 00:01: SARS-CoV-2 IgG Ab (Rapid) Negative, SARS-CoV-2 IgM Ab (Rapid) Negative 01/24/20 00:01: ESR 20 01/24/20 00:01: C-Reactive Protein 21.3 H 01/24/20 02:07: Urine Color Yellow, Urine Appearance Clear, Urine pH 5.5, Ur Specific [place] >= 1.030, Urine Protein 1+, Urine Glucose (UA) Negative, Urine Ketones Negative, Urine Blood 2+, Urine Nitrate Negative, Urine Bilirubin Negative, Urine Urobilinogen 0.2, Ur Leukocyte Esterase Negative, Urine RBC 10-20, Urine WBC Occasional, Ur Squamous Epith Cells 10-20, Amorphous Sediment 1+ 01/24/20 03:25: Troponin I < 0.01 Result diagrams: 01/24/20 00:01 01/24/20 00:01 Orders (Tests/Meds): ED MEDICATIONS Generic Name Dose Route Start Last Admin Trade Name Freq PRN Reason Stop Dose Admin Sodium Chloride 1,000 mls @ 999 mls/hr 01/24/20 00:15 01/24/20 00
[2020-01-24 00:21] LABS: Alanine Aminotransferase 22 U/L (12-78); Albumin Level 4.2 g/dl (3.5-5.0); Alkaline Phosphatase 129 U/L (38-126); Anion Gap 12.3 mEq/L (5-15); Aspartate Amino Transferase 28 U/L (14-36); Bilirubin,Direct 0.2 mg/dl (0.0-0.4); Bilirubin,Indirect 0.4 mg/dL (0.0-0.9); Bilirubin,Total 0.6 mg/dl (0.2-1.3); Bilirubin,Unconjugated 0.4 mg/dL (0.0-1.1); Blood Urea Nitrogen 29 mg/dl (7-17); Calcium 9.4 mg/dl (8.4-10.2); Carbon Dioxide 32 mmol/L (22.0-30.0); Chloride 99 mmol/L (98-107); Creatinine Clearance Estimated 42 mL/min (50-200); Estimated Glomerular Filt Rate 24 ml/min (>60); GFR (African American) 29 ML/MIN (>60); Glucose 197 mg/dl (74-100); Potassium 4.3 mmoL/L (3.5-5.1); Sodium 139 mmol/L (136-145); Total Protein,Serum 7.5 g/dl (6.3-8.2)
[2020-01-24 00:30] VITALS: BP 114/64; PULSE 81; RESP 18; O2SAT 95
[2020-01-24 00:45] LABS: Troponin I < 0.01 ng/ml (0.00-0.034)
[2020-01-24 00:59] LABS: Coronavirus 19 IgG Antibody Negative (Negative); Coronavirus 19 IgM Antibody Negative (Negative)
[2020-01-24 01:00] VITALS: BP 92/52; PULSE 84; RESP 18; O2SAT 93
[2020-01-24 01:30] VITALS: BP 102/57; PULSE 92; RESP 18; O2SAT 95
[2020-01-24 02:04] VITALS: BP 97/56; PULSE 86; RESP 18; O2SAT 94
[2020-01-24 02:14] LABS: Microscopic, Urine URINE MICROSCOPIC (MICROSCOPIC)
[2020-01-24 02:18] LABS: Appearance,Urine CLEAR (Clear); Bilirubin,Urine Negative (Negative); Blood, Urine 2+ (Negative); Color,Urine YELLOW (Yellow); Glucose,Urine (UA) Negative (Negative); Ketones,Urine Negative (Negative); Leukocyte Esterase,Urine Negative (Negative); Nitrate,Urine Negative (Negative); PH,Urine 5.5 (5.0-8.5); Protein,Urine 1+ (Negative); Specific Gravity, Urine >= 1.030 (1.005-1.030); Urobilinogen,Urine 0.2 EU/dl (0.2)
--- NOTE | 2020-01-24 02:19 | PC.NURSE ---
ABG unsuccessful. Pt is refusing second stick at this time
[2020-01-24 02:21] LABS: Amorphous Sediment,Urine 1+ /lpf; WBC,Urine Occasional #/hpf (0-3)
[2020-01-24 02:27] LABS: C-Reactive Protein 21.3 mg/L (0-4)
[2020-01-24 03:00] LABS: Erythrocyte Sedimentation Rate 20 mm/hr (0-30)
--- NOTE | 2020-01-24 03:01 | CT_ITS ---
PROCEDURE: CT HEAD/BRAIN WO CON Referring Doctor: Justin Flores Patient Age:59Y CLINICAL INDICATION: dizzyness history of seizures, may have had a seizure today COMPARISON: No exams were available for comparison TECHNIQUE: No IV contrast. Routine axial images were obtained. All CT scans at the facility use one or more dose reduction, viz: automated exposure control, ma/kV adjustment per patient size (including targeted exams where dose is matched to indication, i.e. head), or iterative reconstruction technique. FINDINGS: no acute intracranial findings.No intracranial hemorrhage.. No subdural nor extra-axial collections . Focal area low-density at the left occipital, parietal occipital region reflecting old infarct. This area mainly involving the smith matter and reflects stable old area of focal old infarct or injury, unchanged since June 2019. With this area of encephalomalacia there is associated mild atrophy yielding slight enlargement of the occipital horn and posterior left lateral ventricle. Otherwise the ventricles and basal cisterns appear clear and unremarkable. No hydrocephalus. Otherwise age-appropriate mild cerebral atrophy Posterior fossa is unremarkable. Fourth ventricle normal position CP angles clear Bone windows: The skull appears intact scalp unremarkable. Visualized portions of paranasal sinuses appears satisfactory and fairly clear-. Only minor mucosal thickening at the anterior floor left maxillary sinus. No air-fluid levels paranasal sinuses The mastoid air cells are well developed and clear. Middle ear clear unremarkable but IAC's unremarkable the nose tilts to the left anteriorly with associated gradual bowing deviation of nasal septum associated IMPRESSION: No acute intracranial findings. . Brain appear stable since June [address];-again noting a small old infarct at the left occipital/ occipital-parietal region with associated mild localized atrophy/encephalomalacia here Dictated by: Audie Varma MD 01/24/2020 10:11 Audie Varma MD in [place] 01/24/2020 10:11
[2020-01-24 04:27] LABS: Troponin I < 0.01 ng/ml (0.00-0.034)
[2020-01-24 05:07] VITALS: BP 101/58; PULSE 90; RESP 18; TEMP 36.7; O2SAT 95
== END 2020-01-24 05:10 | disposition home or self-care (01) ==
PROVIDERS: Emergency Provider Emergency Medicine; PCP Nurse Practitioner Family
DX: N28.9 Disorder of kidney and ureter, unspecified (principal); E11.65 Type 2 diabetes mellitus with hyperglycemia; H81.10 Benign paroxysmal vertigo, unspecified ear; Z01.84 Encounter for antibody response examination; E66.09 Other obesity due to excess calories; Z68.33 Body mass index [BMI] 33.0-33.9, adult; J44.9 Chronic obstructive pulmonary disease, unspecified; I25.10 Atherosclerotic heart disease of native coronary artery without angina pectoris; I10 Essential (primary) hypertension; K21.9 Gastro-esophageal reflux disease without esophagitis; F17.210 Nicotine dependence, cigarettes, uncomplicated; Z90.11 Acquired absence of right breast and nipple
CPT/HCPCS: 70450; 71046; 80048; 80076; 81001; 84484; 85025; 85651; 86140; 86328; 93005; 96365; 96366; 96375; 99284; J2405

== ENCOUNTER → 2020-01-27 11:31 | Outpatient (CLI) | payer MEDICAID, SELFPAY ==
[2020-01-27 17:36] LABS: Chloride 100 mmol/L (98-107); Sodium 137 mmol/L (136-145)
[2020-01-27 17:37] LABS: Potassium 4.4 mmoL/L (3.5-5.1)
[2020-01-27 17:38] LABS: Basophils # 0.1 K/mm3 (0-0.2); Basophils % 0.5 % (0.1-2.0); Eosinophils # 0.1 K/mm3 (0.0-0.4); Eosinophils % 1.4 % (0.1-12.0); Hematocrit 45.5 % (37.0-47.0); Lymphocytes # 2.1 K/mm3 (0.7-4.5); Lymphocytes % 22.3 % (10-50); Mean Corpuscular HGB Conc 30.9 g/dL (31.8-35.4); Mean Corpuscular Hemoglobin 28.7 pg (27.0-31.2); Mean Corpuscular Volume 92.9 fl (81-99); Mean Platelet Volume 7.5 fl (7.4-10.4); Monocytes # 0.6 K/mm3 (0.1-1.0); Monocytes % 5.9 % (1.7-9.3); Neutrophils # 6.5 K/mm3 (1.8-7.8); Neutrophils % 69.9 % (37.0-80.0); Platelet Count 336 K/mm3 (142-424); Red Blood Count 4.89 M/mm3 (4.20-5.40); Red Cell Distribution Width 14.5 % (11.5-17.5); White Blood Count 9.2 K/mm3 (4.8-10.8)
[2020-01-27 17:39] LABS: Alanine Aminotransferase 22 U/L (12-78); Alkaline Phosphatase 120 U/L (38-126); Anion Gap 13.4 mEq/L (5-15); Aspartate Amino Transferase 25 U/L (14-36); Bilirubin,Total 0.5 mg/dl (0.2-1.3); Blood Urea Nitrogen 17 mg/dl (7-17); Carbon Dioxide 28 mmol/L (22.0-30.0); Estimated Glomerular Filt Rate 42 ml/min (>60); GFR (African American) 50 ML/MIN (>60)
[2020-01-27 17:40] LABS: Albumin/Globulin Ratio 1.4 (1.1-1.8); Calcium 9.4 mg/dl (8.4-10.2); Globulin 2.8 g/dL (1.3-3.2); Glucose 143 mg/dl (74-100); Total Protein,Serum 6.8 g/dl (6.3-8.2)
[2020-01-28 17:34] LABS: Covid-19 Nasal PCR Sendout Lex Not Detected
== END ==
PROVIDERS: PCP Nurse Practitioner Family; Visit Provider Nurse Practitioner Family
DX: Z03.818 Encounter for observation for suspected exposure to other biological agents ruled out (principal); E11.9 Type 2 diabetes mellitus without complications; R53.83 Other fatigue; Z79.4 Long term (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
CPT/HCPCS: 80053; 85025; 87086; U0004

== ENCOUNTER → 2020-02-02 12:53 | Outpatient (CLI) | payer MEDICAID, SELFPAY ==
--- NOTE | 2020-02-02 12:53 | CA_ITS ---
APPROVED REPORT EXAM: Comprehensive 2D, Doppler, and color-flow Echocardiogram Gas Welder: Galilea Monreal CRT Ht: 5 ft 6 in Wt: 228lbs BSA: 2.11 BP: 140/86 mmHg Indications: COPD, Murmur, Diabetes, Hyperlipidemia, Hypertension/HDD, palpitations. pt very tender/sore to touch, L mastectomy 2D Dimensions LVOT 2.07 cm (M/F) 1.5-2.5 M-Mode Dimensions RVDd 3.33 cm (0.9-2.6) LA Diam 4.50 cm (1.9-4.0) LVDd 5.13 cm (3.5-5.7) Ao Diam 2.96 cm (2.0-3.7) LVDs 3.85 cm (3.5-5.7) IVSd 1.24 cm (0.6-1.1) PWd 1.12 cm (0.6-1.1) EF (Teich) 49.10% FS 25.00% EDV (Teich) 125.50 mL ESV (Teich) 63.90 mL LV Diastology E Decel Time 150.00 (160-240 msec) E/A Ratio 0.74 MED E' 4.30 (< 7 cm/sec) E'/MED E' Ratio 16.60 (>14) LAT E' 5.20 (<10 cm/sec) E/LAT E' Ratio 13.73 (>14) Aortic Valve AO Peak GR. 4.20 mmHg Mitral Valve MV E Max Brett. 71.00 (40-130 cm/s) MV A Velocity 97.00 (40-130 cm/s) E/A Ratio 0.74 MV Decel. Time 150.00 (160-240 ms) MV PHT 44.00 ms Pulmonary Valve PV Peak Velocity 91.00 (50-150 cm/s) Tricuspid Valve TR P. Velocity 135.00 cm/s RAP Estimate 10.00 mmHg RVSP 17.30 mmHg Left Ventricle Technically difficult study because of the patient factors and poor acoustic windows. Left atrium is mildly enlarged, left ventricle is normal size, mild concentric left ventricular hypertrophy, visually estimated ejection fraction 50% with no regional wall motion abnormality, grade 1 diastolic dysfunction seen with tissue Doppler evidence of raise left atrial pressure. Right Ventricle Right atrium and right ventricle are mildly enlarged with normal contractility. Aortic Valve Aortic valve is minimally thickened and fibrosed, there is no aortic stenosis or aortic insufficiency. Mitral Valve Mitral valve is grossly normal, there is mild mitral regurgitation. Tricuspid Valve Tricuspid valve is grossly normal, there is mild tricuspid regurgitation, tricuspid regurgitation jet velocity is inadequate for calculation of the right ventricular systolic pressure. Pulmonic Valve Pulmonic valve is poorly visualized. Great Vessels Aortic root is normal size. Pericardium No significant pericardial effusion noted. Conclusion 1. Technically difficult study because of the patient factors and poor acoustic windows. 2. Mild biatrial enlargement, normal left ventricular size, mild concentric left ventricular hypertrophy, visually estimated ejection fraction 50% with no regional wall motion abnormality, grade 1 diastolic dysfunction seen with tissue Doppler evidence of raise left atrial pressure. 3. Mildly enlarged right ventricle with normal contractility. 4. Mild mitral and tricuspid regurgitation. 5. No significant pericardial effusion noted. Electronically signed by : Peter Winslow, 02/03/2020 05:44:32
== END ==
PROVIDERS: PCP Nurse Practitioner Family; Visit Provider Physician Assistant
DX: R06.02 Shortness of breath (principal); I20.8 Other forms of angina pectoris; I11.0 Hypertensive heart disease with heart failure; I42.9 Cardiomyopathy, unspecified; I48.0 Paroxysmal atrial fibrillation; I50.21 Acute systolic (congestive) heart failure; R01.1 Cardiac murmur, unspecified; E11.9 Type 2 diabetes mellitus without complications; E78.2 Mixed hyperlipidemia; J44.9 Chronic obstructive pulmonary disease, unspecified; R53.83 Other fatigue; G47.33 Obstructive sleep apnea (adult) (pediatric); Z79.4 Long term (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
CPT/HCPCS: 93306

== ENCOUNTER → 2020-03-31 13:22 | Outpatient (CLI) | payer MEDICAID, SELFPAY ==
--- NOTE | 2020-03-31 13:23 | CA_ITS ---
APPROVED REPORT Junior Systems Administrator: KOLE Laterality: Bilateral Study Quality: Technically Difficult Indications: right carotid stent Risk Factors Hypertension: Hyperlipidemia Diabetes CAD, Smoking Surgery/Intervention right hx- Lt ica occulussion confirmed with angio 12/2018 Medications pt on xarellto Doppler Spectral Velocity Analysis ECA (R) 141.10/18.20 cm/s ECA (L) 306.30/25.00 cm/s dICA (R) 193.60/70.50 cm/s dCCA (L) 56.90/6.70 cm/s Art (R) 193.60/66.00 cm/s pCCA (L) 59.90/12.70 cm/s pICA (R) 167.10/48.70 cm/s Vert (L) 58.40/16.50 cm/s ICA/CCA 0.00 dCCA (R) 106.90/36.60 cm/s pCCA (R) 100.20/16.40 cm/s Vert (R) 64.30/19.50 cm/s ICA/CCA 1.90 Findings Rt Ica 50-69% stenosis, bilateral vertebral arteries dispaly antegrade flow. Lt Ica total occlussion. Conclusion Rt Ica 50-69% stenosis, bilateral vertebral arteries dispaly antegrade flow. Lt Ica total occlussion. Electronically signed by : Jordan Du MD 03/31/2020 17:44:19
== END ==
PROVIDERS: PCP Nurse Practitioner Family; Visit Provider Physician Assistant
DX: R06.02 Shortness of breath (principal); I73.9 Peripheral vascular disease, unspecified; R01.1 Cardiac murmur, unspecified; E11.9 Type 2 diabetes mellitus without complications; E78.5 Hyperlipidemia, unspecified; I42.9 Cardiomyopathy, unspecified; I25.10 Atherosclerotic heart disease of native coronary artery without angina pectoris; I48.91 Unspecified atrial fibrillation; I50.20 Unspecified systolic (congestive) heart failure; J44.9 Chronic obstructive pulmonary disease, unspecified; R53.83 Other fatigue; G47.33 Obstructive sleep apnea (adult) (pediatric); Z79.4 Long term (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
CPT/HCPCS: 93880

== ENCOUNTER → 2020-05-11 11:53 | Outpatient (CLI) | payer MEDICAID, SELFPAY ==
[2020-05-11 12:18] LABS: Basophils % 0.4 % (0.1-2.0); Eosinophils # 0.2 K/mm3 (0.0-0.4); Eosinophils % 1.4 % (0.1-12.0); Hematocrit 44.4 % (37.0-47.0); Hemoglobin 13.7 g/dL (12.2-16.2); Lymphocytes # 3.2 K/mm3 (0.7-4.5); Lymphocytes % 28.5 % (10-50); Mean Corpuscular HGB Conc 30.9 g/dL (31.8-35.4); Mean Corpuscular Hemoglobin 29.4 pg (27.0-31.2); Mean Corpuscular Volume 95.3 fl (81-99); Mean Platelet Volume 7.3 fl (7.4-10.4); Monocytes # 0.5 K/mm3 (0.1-1.0); Monocytes % 4.5 % (1.7-9.3); Neutrophils # 7.2 K/mm3 (1.8-7.8); Neutrophils % 65.2 % (37.0-80.0); Platelet Count 325 K/mm3 (142-424); Red Blood Count 4.66 M/mm3 (4.20-5.40); Red Cell Distribution Width 15.2 % (11.5-17.5)
[2020-05-11 12:33] LABS: Troponin I < 0.01 ng/ml (0.00-0.034)
[2020-05-11 12:48] LABS: Chloride 106 mmol/L (98-107)
[2020-05-11 12:49] LABS: Potassium 4.3 mmoL/L (3.5-5.1); Sodium 143 mmol/L (136-145)
[2020-05-11 12:52] LABS: Anion Gap 11.3 mEq/L (5-15); Blood Urea Nitrogen 23 mg/dl (7-17); Calcium 9.6 mg/dl (8.4-10.2); Carbon Dioxide 30 mmol/L (22.0-30.0); Estimated Glomerular Filt Rate 35 ml/min (>60); GFR (African American) 43 ML/MIN (>60); Glucose 140 mg/dl (74-100)
[2020-05-11 13:02] LABS: NT Pro Brain Natriuretic Pep. 620 pg/mL (0-125)
[2020-05-11 13:48] LABS: Coronavirus 19 IgG Antibody Negative (Negative); Coronavirus 19 IgM Antibody Negative (Negative)
== END ==
PROVIDERS: Visit Provider Physician Assistant
DX: Z01.818 Encounter for other preprocedural examination (principal); Z20.822 Contact with and (suspected) exposure to COVID-19; I20.8 Other forms of angina pectoris; I25.118 Atherosclerotic heart disease of native coronary artery with other forms of angina pectoris; R00.0 Tachycardia, unspecified; R06.02 Shortness of breath
CPT/HCPCS: 36415; 80048; 83880; 84484; 85025; 86328

== ENCOUNTER 2020-05-12 08:13 | Day surgery (SDC) | payer MEDICAID, SELFPAY ==
[2020-05-12] VITALS (13 sets, daily range): BP systolic 118–201; BP diastolic 67–97; PULSE 76–87; RESP 13–24; TEMP 36.6–36.9; O2SAT 92–98; BMI 36.6
--- NOTE | 2020-05-12 07:21 | IR_ITS ---
APPROVED REPORT Patient Location: Outpatient Order Runner: ARIELLE Ledesma RT (R) PROCEDURES Left heart catheterization Left ventriculogram Selective coronary angiogram INDICATION Unstable angina Informed consent was obtained prior to the procedure. COMPLICATIONS NONE Estimated Blood Loss: LESS THAN 10 MLS TECHNIQUE 1% lidocaine used to anesthetize the left femoral groin. The left femoral artery was accessed via the Seldinger technique. Using fluoroscopic guidance the JR4 catheter was advanced from the aorta into the right common iliac artery and then advanced into the right superficial femoral artery. There unilateral selective angiography with runoff to the foot was performed. Following this the catheter was pulled back into the right common iliac artery and angiography was performed. At the end of the procedure the patient was transferred to the postop holding area in stable condition for sheath removal. ANGIOGRAPHIC RESULTS The left main artery Normal The left anterior descending artery Has proximal mid vessel mild 10% luminal irregularities The circumflex artery Is nondominant has proximal mid vessel 10% luminal irregularities The right coronary artery Is dominant and has proximal to mid vessel 10% luminal irregularities The BOWDEN ventriculogram reveals Normal 65% The left ventricular end-diastolic pressure 15 mmHg IMPRESSION Mild nonflow limiting coronary disease Normal ejection fraction Borderline LVEDP PLAN 1. Medical management Electronically signed by : Channing Jennings, 05/17/2020 14:11:58
== END 2020-05-12 13:04 | disposition home or self-care (01) ==
LOC: CATHLAB 08:14
PROVIDERS: PCP Nurse Practitioner Family; Visit Provider Internal Medicine
DX: I25.110 Atherosclerotic heart disease of native coronary artery with unstable angina pectoris (principal); E11.9 Type 2 diabetes mellitus without complications; E78.2 Mixed hyperlipidemia; F17.200 Nicotine dependence, unspecified, uncomplicated; G47.33 Obstructive sleep apnea (adult) (pediatric); I11.0 Hypertensive heart disease with heart failure; I42.9 Cardiomyopathy, unspecified; I48.0 Paroxysmal atrial fibrillation; I50.43 Acute on chronic combined systolic (congestive) and diastolic (congestive) heart failure; I65.23 Occlusion and stenosis of bilateral carotid arteries; I70.1 Atherosclerosis of renal artery; J44.9 Chronic obstructive pulmonary disease, unspecified; R00.0 Tachycardia, unspecified; R06.02 Shortness of breath; R07.9 Chest pain, unspecified; R94.31 Abnormal electrocardiogram [ECG] [EKG]; Z79.4 Long term (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; Z99.81 Dependence on supplemental oxygen; Z95.0 Presence of cardiac pacemaker
CPT/HCPCS: 93458; 99152; C1725; C1769; J1644; Q9967

== ENCOUNTER → 2020-09-30 09:35 | Outpatient (CLI) | payer MEDICAID, SELFPAY ==
--- NOTE | 2020-09-30 09:36 | CA_ITS ---
APPROVED REPORT Diamond Sizer: Olivia Pete RVT Laterality: Bilateral Study Quality: Good Indications: bilateral carotid artery stenosis,HX LICA OCCLUSION Risk Factors Hypertension: Hyperlipidemia Smoking Surgery/Intervention Carotid Stent: right Doppler Spectral Velocity Analysis ECA (R) 307.50/15.40 cm/s ECA (L) 322.90/27.80 cm/s dICA (R) 137.90/36.20 cm/s dCCA (L) 82.30/16.00 cm/s Art (R) 203.40/47.40 cm/s pCCA (L) 66.30/9.60 cm/s pICA (R) 220.10/39.00 cm/s Vert (L) 57.70/20.30 cm/s dCCA (R) 75.90/27.80 cm/s pCCA (R) 96.20/31.00 cm/s Vert (R) 76.60/18.10 cm/s ICA/CCA 2.90 Findings Study suggests 50-69% stenosis of the right internal cartoid artery unchanged from the 03/31/20 study. Stent seen in the right internal cartoid artery. Study suggests total occlusion of the left internal cartoid artery unchanged from the 03/31/20 study. Antegrade flow seen bilateral vertebral arteries. Conclusion Study suggests 50-69% stenosis of the right internal cartoid artery unchanged from the 03/31/20 study. Stent seen in the right internal cartoid artery. Study suggests total occlusion of the left internal cartoid artery unchanged from the 03/31/20 study. Antegrade flow seen bilateral vertebral arteries. Electronically signed by : Jordan Du MD 09/30/2020 16:27:55
== END ==
PROVIDERS: PCP Nurse Practitioner Family; Visit Provider Nurse Practitioner Family
DX: I65.23 Occlusion and stenosis of bilateral carotid arteries (principal); R09.89 Other specified symptoms and signs involving the circulatory and respiratory systems
CPT/HCPCS: 93880

== ENCOUNTER 2021-10-30 18:14 | Emergency (ER) | payer MEDICAID, SELFPAY ==
[2021-10-30 19:35] VITALS: BP 146/76; PULSE 75; RESP 22; TEMP 36.6; O2SAT 95; BMI 36.0
--- NOTE | 2021-10-30 19:51 | HMH.EDUTC ---
[facility] [place] Disposition Clinical Impression: Bronchitis Disposition: Home, Self-Care Condition on Discharge: Good Instructions: Acute Bronchitis, DI for Sinusitis, DI for COVID-19 (Suspected or Confirmed ) Additional Instructions: Make sure to finish taking your Azithromycin and prednisone as it was prescribed Use inhalers as prescribed *Warm salt water gargles may help to soothe the throat *Throat Lozenges *Warm fluids like tea with honey may help to soothe the throat *Sleep elevated *Humidifier/Vaporizer Follow up with your Family Doctor if no improvement or any worsening of symptoms Return if needed Straight to ER if any life threatening symptoms Referrals: Madiha Villarreal APRN [Primary Care Provider] - As needed Time of Disposition: 20:10 Medical Decision Making - Gianfranco Inquiry Pt receiving controlled substance: No Gianfranco was queried for this patient: No Vital Signs: 10/30/21 19:35 10/30/21 20:20 Temperature 97.8 F 97.8 F Temperature Source Oral Pulse Rate 75 Pulse Rate [Left Brachial] 75 Respiratory Rate 22 22 Blood Pressure 146/76 H Blood Pressure [Left Arm] 146/76 H Blood Pressure Mean [Left Arm] 99 Blood Pressure Source [Left Arm] Automatic Cuff Blood Pressure Position [Left Arm] Sitting 02 Sat by Pulse Oximetry 95 Oxygen Delivery Method Room Air Orders (Tests/Meds): ED MEDICATIONS Discontinued Medications Generic Name Dose Route Start Last Admin Trade Name Jj PRN Reason Stop Dose Admin Ceftriaxone Sodium 1 gm 10/30/21 20:02 10/30/21 20:17 Ceftriaxone 1gm Vial IM 10/30/21 20:03 1 gm ONCE ONE Administration Lidocaine HCl 0 ml 10/30/21 20:02 10/30/21 20:17 Lidocaine 1% 5ml Pf Vial IM 10/30/21 20:03 2 ml ONCE ONE Administration [facility] [place] HPI - General Stated complaint: Covid test, body aches, BACK PAIN, SOA, DALE Time Seen by Provider: 10/30/21 19:51 Mode of Arrival: Ambulatory Source of Information: Patient Limitations: No Limitations Description of Symptoms (Recalled from Triage Doc. by RN): PATIENT STATES SHE TESTED POSITIVE FOR COVID ON SATURDAY AND FEELS WORSE TODAY HEENT Symptoms (Recalled from RN notes): No Resp Symptoms (Recalled from RN notes): Yes Skin Symptoms (Recalled from RN notes): No MS Symptoms (Recalled from RN notes): No Functional Status (Recalled from RN notes): WNL - History of Present Illness Provider Complaint: Patient states that she had COVID last week States that she is still having sinus congestion and pressure and feels like it is trying to move into her chest states that she is on azithromycin and prednisone and has a couple days left but wanted to see if she could get a shot or something to help boost it States that she is a smoker - Related Data Home Medications Medication Instructions Recorded Confirmed Cyclobenzaprine HCl 10 mg PO TID 01/24/20 03/15/21 [Cyclobenzaprine 10mg Tab*] Fluticasone/Vilanterol [Breo 1 puff IH DAILY 01/24/20 03/15/21 Ellipta 100-25 Mcg INH] Previous Rx's Medication Instructions Recorded insulin glargine 100 unit/mL 8 unit SQ HS #10 ml 09/28/20 subcutaneous solution pantoprazole 40 mg tablet,delayed See Rx Instructions .ROUTE 12/28/20 release .COMPLEX #90 tab clopidogrel 75 mg tablet See Rx Instructions .ROUTE 02/01/21 .COMPLEX #30 tab furosemide 40 mg tablet See Rx Instructions .ROUTE 05/08/21 .COMPLEX #45 tab nicotine 21 mg/24 hr daily See Rx Instructions .ROUTE 05/08/21 transdermal patch .COMPLEX #28 each ranolazine 1,000 mg See Rx Instructions .ROUTE 05/08/21 tablet,extended release,12 hr .COMPLEX #180 tab rivaroxaban 15 mg tablet See Rx Instructions .ROUTE 05/08/21 .COMPLEX #90 tab fluticasone propionate 50 See Rx Instructions .ROUTE 08/01/21 mcg/actuation nasal .COMPLEX #16 g spray,suspension pen needle, diabetic 32 gauge x See Rx Instructions .ROUTE 08/03/2132 .COMPLEX #100 each albuterol sulfate 90 mcg/actuation See Rx Instructions .ROUTE 08/07/21 a
[2021-10-30 20:20] VITALS: BP 146/76; PULSE 75; RESP 22; TEMP 36.6; O2SAT 95
== END 2021-10-30 20:40 | disposition home or self-care (01) ==
PROVIDERS: Emergency Provider Nurse Practitioner; PCP Nurse Practitioner Family
DX: J40 Bronchitis, not specified as acute or chronic (principal); F17.210 Nicotine dependence, cigarettes, uncomplicated; Z20.822 Contact with and (suspected) exposure to COVID-19
CPT/HCPCS: 99212; G0463; J0696

== ENCOUNTER → 2021-12-01 10:28 | Outpatient (CLI) | payer MEDICAID, SELFPAY ==
[2021-12-01 11:01] LABS: Basophils # 0.1 K/mm3 (0-0.2); Basophils % 0.7 % (0.1-2.0); Eosinophils # 0.1 K/mm3 (0.0-0.4); Eosinophils % 1.7 % (0.1-12.0); Hematocrit 44.5 % (37.0-47.0); Lymphocytes # 2.1 K/mm3 (0.7-4.5); Lymphocytes % 27.7 % (10-50); Mean Corpuscular HGB Conc 31.4 g/dL (31.8-35.4); Mean Corpuscular Hemoglobin 31.6 pg (27.0-31.2); Mean Corpuscular Volume 100.7 fl (81-99); Mean Platelet Volume 7.7 fl (7.4-10.4); Monocytes # 0.4 K/mm3 (0.1-1.0); Monocytes % 5.4 % (1.7-9.3); Neutrophils # 4.9 K/mm3 (1.8-7.8); Neutrophils % 64.5 % (37.0-80.0); Platelet Count 289 K/mm3 (142-424); Red Blood Count 4.42 M/mm3 (4.20-5.40); Red Cell Distribution Width 13.7 % (11.5-17.5); White Blood Count 7.5 K/mm3 (4.8-10.8)
[2021-12-01 11:11] LABS: Hemoglobin A1C 5.9 % (4.0-6.0)
[2021-12-01 12:05] LABS: 25-OH Vitamin D, Total < 12.8 ng/mL (30-100)
[2021-12-01 12:22] LABS: Alanine Aminotransferase 17 U/L (12-78); Albumin Level 3.6 g/dl (3.5-5.0); Albumin/Globulin Ratio 1.5 (1.1-1.8); Alkaline Phosphatase 97 U/L (38-126); Anion Gap 15.3 mEq/L (5-15); Aspartate Amino Transferase 20 U/L (14-36); Bilirubin,Total 0.3 mg/dl (0.2-1.3); Blood Urea Nitrogen 29 mg/dl (7-17); Calcium 8.6 mg/dl (8.4-10.2); Carbon Dioxide 24 mmol/L (22.0-30.0); Chloride 102 mmol/L (98-107); Chol/HDL Ratio 3.1 (1-3.5); Cholesterol 149 mg/dl (140-200); Estimated Glomerular Filt Rate 35 ml/min (>60); GFR (African American) 43 ML/MIN (>60); Globulin 2.4 g/dL (1.3-3.2); Glucose 115 mg/dl (74-100); HDL Cholesterol 48 mg/dl (40-60); Potassium 4.3 mmoL/L (3.5-5.1); Sodium 137 mmol/L (136-145); Triglycerides 112 mg/dl (30-150); VLDL Cholesterol 22 mg/dL (0-40)
[2021-12-01 12:33] LABS: Direct LDL Cholesterol 74.96 mg/dL (100-129)
[2021-12-01 12:55] LABS: Thyroid Stimulating Hormone 0.47 uIU/mL (0.465-4.68)
== END ==
PROVIDERS: PCP Nurse Practitioner Family; Visit Provider Nurse Practitioner Family
DX: R53.83 Other fatigue (principal); I10 Essential (primary) hypertension; E11.9 Type 2 diabetes mellitus without complications; I95.1 Orthostatic hypotension; E55.9 Vitamin D deficiency, unspecified; Z79.4 Long term (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
CPT/HCPCS: 36415; 80053; 80061; 82306; 83036; 84443; 85025

== ENCOUNTER 2022-01-03 16:38 | Observation (INO) | payer MEDICAID, SELFPAY ==
[2022-01-03] VITALS (13 sets, daily range): BP systolic 92–113; BP diastolic 39–56; PULSE 53–66; RESP 16–18; TEMP 32.2–36.6; O2SAT 92–100; BMI 32.8; BMI 34.4
--- NOTE | 2022-01-03 17:08 | HMH.EDGENADL ---
Discharge Plan Disposition Patient Disposition: Admitted As Inpatient Condition: Fair Clinical Impressions Clinical Impression: Sepsis, Hypothermia, Prolonged Q-T interval on ECG Discharge ED Provider: Michelle Sanchez General Adult HPI General Chief complaint: Weakness Stated complaint: WEAKNESS Time Seen by Provider: 01/03/22 16:59 History of Present Illness HPI narrative: This patient is a 61-year-old female with history of obesity, COPD, CHF, atrial fibrillation, CAD, insulin-dependent type 2 diabetes, cardiomyopathy, orthostatic hypotension who presents to the emergency department for evaluation with concern that her blood sugar bottomed out. She states that she had taken her insulin at home and felt nauseated, diaphoretic, and lightheaded. She states that she ate a bunch of candy, and now she is feeling better. Upon EMS arrival, patient had a fingerstick blood glucose greater than 100. She currently states that she is feeling better. She denies any fevers, chills, headache, vision changes, chest pain, shortness of breath, cough, congestion, abdominal pain, back pain, nausea, vomiting, numbness, tingling, unilateral weakness, or other concerns. Related Data Home Medications Medication Instructions Recorded Confirmed cyclobenzaprine 10 mg tablet 10 mg PO TID spasms 01/24/20 01/03/22 albuterol sulfate 90 mcg/actuation 1 puff inhalation Q4HP PRN asthma 01/03/22 01/03/22 aerosol inhaler (ProAir HFA) atorvastatin 80 mg tablet 80 mg PO DAILY hld 01/03/22 01/03/22 blood sugar diagnostic (Blood 01/03/22 01/03/22 Glucose Test strips) carvedilol 25 mg tablet 25 mg PO DAILY High blood pressure 01/03/22 01/03/22 clopidogrel 75 mg tablet 75 mg PO DAILY antiplatelet 01/03/22 01/03/22 furosemide 40 mg tablet 40 mg PO DAILY chf 01/03/22 01/03/22 insulin NPH-regular 70-30 U-100 100 unit SQ DAILY Diabetes 01/03/22 01/03/22 insulin 100 unit/mL subcutaneous pen (Humulin 70/30 U-100 KwikPen) insulin glargine 100 unit/mL 8 unit SQ HS Diabetes 01/03/22 01/03/22 subcutaneous solution (Lantus U-100 Insulin) loratadine 10 mg tablet 10 mg PO DAILY allergies 01/03/22 01/03/22 losartan 100 mg tablet 100 mg PO DAILY htn 01/03/22 01/03/22 nicotine 21 mg/24 hr daily 1 patch transdermal DAILY nicotene 01/03/22 01/03/22 transdermal patch withdrawal pantoprazole 40 mg tablet,delayed 40 mg PO DAILY GERD 01/03/22 01/03/22 release pen needle, diabetic 32 gauge x 01/03/22 01/03/22 (BD Ultra-Fine Becka Pen Needle) ranolazine 1,000 mg 1,000 mg PO DAILY angina 01/03/22 01/03/22 tablet,extended release,12 hr rivaroxaban 15 mg tablet (Xarelto) 15 mg PO DAILY Blood thinner 01/03/22 01/03/22 semaglutide 0.25 mg or 0.5 mg (2 0.5 mg SQ WEEKLY Diabetes 01/03/22 01/03/22 mg/1.5 mL) subcutaneous pen injector ([email or web address]) Previous Rx's Medication Instructions Recorded ondansetron 4 mg disintegrating 4 mg PO TID PRN nausea and 10/27/21 tablet vomiting #30 tabs Allergies Allergy/AdvReac Type Severity Reaction Status Date / Time oxycodone [From PERCOCET] Allergy Unknown Unknown Verified 11/29/21 15:48 allergy reaction isosorbide [From Imdur] AdvReac Severe Headache Verified 11/29/21 15:48 [facility] Medical History Abnormal EKG Abnormal stress test Atypical angina Cardiac murmur Cardiomyopathy Congestive heart failure COPD (chronic obstructive pulmonary disease) Diabetes mellitus Diastolic dysfunction Ex-smoker Fatigue HTN (hypertension) IDDM (insulin dependent diabetes mellitus) Left carotid bruit Neuropathic pain Neuropathy ADRIANA (obstructive sleep apnea) Tachycardia induced cardiomyopathy Tobacco dependence syndrome Social History Smoking Status: Current every day smoker tobacco type: cigarettes packs per day: 1 second hand exposure: No alcohol intake: never counseling provided:
--- NOTE | 2022-01-03 17:09 | ECG_ITS ---
APPROVED REPORT Exam: Resting ECG HR:54 bpm ECG Measurements Heart Rate 54 AXES MO 158 P 70 QRSd 108 QRS -13 QT 558 T 43 QTc 544 Conclusion SINUS BRADYCARDIA PROLONGED QT INTERVAL CRITICAL TEST RESULT UNCONFIRMED REPORT Electronically signed by : Jaron Gomes MD 01/03/2022 21:54:30
--- NOTE | 2022-01-03 17:15 | PC.NURSE ---
pt placed on mae hugger r/t rectal temp 91.9, ER aware
--- NOTE | 2022-01-03 17:15 | XR_ITS ---
PROCEDURE INFORMATION: Exam: XR Chest Exam date and time: 01/03/2022 5:33 PM Age: 61 years old Clinical indication: Shortness of breath; Additional info: SOA TECHNIQUE: Imaging protocol: Radiologic exam of the chest. Views: 1 view. COMPARISON: CR XR CHEST 2V 01/24/2020 12:10 AM FINDINGS: Lungs: Unremarkable. No consolidation. Pleural spaces: Unremarkable. No pleural effusion. No pneumothorax. Heart/Mediastinum: Unremarkable. No cardiomegaly. Bones/joints: Unremarkable. IMPRESSION: No acute cardiopulmonary abnormality.
[2022-01-03 17:20] LABS: Chloride 101 mmol/L (98-107); Potassium 3.7 mmoL/L (3.5-5.1); Sodium 136 mmol/L (136-145)
[2022-01-03 17:22] LABS: Blood Urea Nitrogen 26 mg/dl (7-17); Estimated Glomerular Filt Rate 41 ml/min (>60); GFR (African American) 50 ML/MIN (>60)
[2022-01-03 17:23] LABS: Alanine Aminotransferase 20 U/L (12-78); Albumin Level 3.6 g/dl (3.5-5.0); Albumin/Globulin Ratio 1.4 (1.1-1.8); Alkaline Phosphatase 88 U/L (38-126); Anion Gap 11.7 mEq/L (5-15); Aspartate Amino Transferase 26 U/L (14-36); Bilirubin,Total 0.3 mg/dl (0.2-1.3); Calcium 8.4 mg/dl (8.4-10.2); Carbon Dioxide 27 mmol/L (22.0-30.0); Globulin 2.5 g/dL (1.3-3.2); Glucose 159 mg/dl (74-100); Total Protein,Serum 6.1 g/dl (6.3-8.2)
[2022-01-03 17:23] LABS: POC Glucose,Bedside 169 (70-110)
[2022-01-03 17:25] LABS: Basophils % 0.4 % (0.1-2.0); Eosinophils # 0.1 K/mm3 (0.0-0.4); Eosinophils % 0.7 % (0.1-12.0); Hematocrit 40.5 % (37.0-47.0); Hemoglobin 13.2 g/dL (12.2-16.2); Lymphocytes # 1.6 K/mm3 (0.7-4.5); Mean Corpuscular HGB Conc 32.5 g/dL (31.8-35.4); Mean Corpuscular Hemoglobin 32.1 pg (27.0-31.2); Mean Corpuscular Volume 98.8 fl (81-99); Mean Platelet Volume 7.6 fl (7.4-10.4); Monocytes # 0.3 K/mm3 (0.1-1.0); Monocytes % 4.3 % (1.7-9.3); Neutrophils # 5.4 K/mm3 (1.8-7.8); Neutrophils % 73.5 % (37.0-80.0); Platelet Count 224 K/mm3 (142-424); Red Cell Distribution Width 13.5 % (11.5-17.5); White Blood Count 7.4 K/mm3 (4.8-10.8)
[2022-01-03 17:31] LABS: Coronavirus 19, PCR Not Detected (NotDetected); Influenza A, PCR Not Detected (NotDetected); Influenza B, PCR Not Detected (NotDetected)
--- NOTE | 2022-01-03 17:34 | PC.NURSE ---
sanding machine operator or tender paging [facility] for vancomycin dosin
[2022-01-03 17:40] LABS: C-Reactive Protein 3.4 mg/L (0-4)
[2022-01-03 17:42] LABS: Troponin I < 0.01 ng/ml (0.00-0.034)
--- NOTE | 2022-01-03 17:47 | PC.NURSE ---
spoke with casey at [facility], verified vancomyin dosing, states Vancomycin 2,375mg IV once is okay for first dose of medication.
--- NOTE | 2022-01-03 17:56 | PC.NURSE ---
Son called to inquire about pt status.
[2022-01-03 18:05] LABS: Lactic Acid 0.7 mmol/L (0.7-2.1)
[2022-01-03 18:21] LABS: Magnesium 1.8 mg/dl (1.6-2.3)
[2022-01-03 18:30] LABS: VBG HCO3 23.5 mmol/L (23-30); VBG Oxygen Saturation 94.8 % (50-70); VBG PCO2 49.2 mmol/L (35-51); VBG PO2 78.5 mmol/L (28-40)
[2022-01-03 18:41] LABS: Microscopic, Urine URINE MICROSCOPIC (MICROSCOPIC)
[2022-01-03 18:43] LABS: Appearance,Urine CLEAR (Clear); Bilirubin,Urine Negative (Negative); Blood, Urine Negative (Negative); Color,Urine YELLOW (Yellow); Glucose,Urine (UA) Negative (Negative); Ketones,Urine Negative (Negative); Leukocyte Esterase,Urine Negative (Negative); Nitrate,Urine Negative (Negative); Protein,Urine TRACE (Negative); Specific Gravity, Urine 1.025 (1.005-1.030); Urobilinogen,Urine 0.2 EU/dl (0.2)
[2022-01-03 18:58] LABS: Bacteria,Urine 1+ /lpf; RBC,Urine Occasional #/hpf (0-3); WBC,Urine Occasional #/hpf (0-3)
--- NOTE | 2022-01-03 19:23 | PC.NURSE ---
notified lead warehouse associate of admission
--- NOTE | 2022-01-03 19:43 | PC.NURSE ---
report given to nahumrn
--- NOTE | 2022-01-03 19:51 | EXP.HP ---
History of Present Illness *Admission Date: 01/03/22 *Reason for visit:: Weakness, Hypoglycemia, Nausea *History of present illness: Ms. Kulkarni is a 61-year-old female with a past medical history that is positive for COPD, home oxygen dependent at 2L, chronic tobacco abuse, CHF with Diastolic Dysfunction, CKD, Atrial Fibrillation on chronic anticoagulation, IDDM, Cardiomyopathy and history of Orthostatic Hypotension. She presents to [facility] by EMS to the ER today, 01/03/2022 secondary to acute onset of weakness associated with dizziness and nausea that occurred a few hours prior to her arrival. The patient was seen today in the ER. She reports that with her symptoms she was concerned she was hypoglycemic. She reports that she checked her blood glucose by glucometer and it was in the 70's. She reports that she ate alot of candy and called 911. On EMS arrival the patient was in the 100 range. She was brought into the ER for further evaluation. In the ER, the patient was found to be hypothermic with a temperature of 91, she was hypotensive with blood pressure in the 80s systolic. Initial concern was for sepsis. She was given Fluid bolus' and Vancomcyin and Cefepime in the ER. Blood cultures were drawn along with urine cultures. The patient was also found to be Bradycardic and QTC was prolonged at 544. In the ER the patinet was given Magnesium iv. The patient will be admitted with initial impression: Hypothermia, Hypotension and prolonged qtc. Differentials will be considered and further testing performed. The plan of care was discussed with the patient at bedside in the ER. The patient verbalized understanding and agreement with the plan of care. [facility] Medical History (Updated 01/03/22 @ 21:37 by Anahi Sams RN) Abnormal EKG Abnormal stress test Atypical angina Breast cancer Cardiac murmur Cardiomyopathy Congestive heart failure COPD (chronic obstructive pulmonary disease) Diabetes mellitus Diabetes mellitus, type 2 Diastolic dysfunction Ex-smoker Fatigue History of COVID-19 History of gastroesophageal reflux (GERD) History of left heart catheterization (LHC) HTN (hypertension) IDDM (insulin dependent diabetes mellitus) Left carotid bruit Migraine Neuropathic pain Neuropathy ADRIANA (obstructive sleep apnea) Sleep apnea Tachycardia induced cardiomyopathy Tobacco dependence syndrome Surgical History (Updated 01/03/22 @ 21:37 by Anahi Sams RN) History of right heart catheterization (RHC) History of tonsillectomy Tubal ligation status Family History (Updated 01/03/22 @ 21:37 by Anahi Sams RN) Family history of GERD Family history of stroke Family history of cancer Family history of hypertension Family history of diabetes mellitus type II Family history of COPD (chronic obstructive pulmonary disease) Family history of migraine headaches Family history of myocardial infarction Family history of hyperlipidemia Social History (Updated 01/03/22 @ 21:37 by Anahi Sams RN) Smoking Status: Current every day smoker tobacco type: cigarettes packs per day: 1 second hand exposure: No alcohol intake: never counseling provided: none substance use type: denies use current occupational status: retired and other Travel in the last 8 weeks: None household members: family and children housing: house current occupational exposures/hazards: No caffeine: No Review of Systems Review of Systems Review of systems:: pertinent systems reviewed and negative unless documented below Constitutional Constitutional: Reports chills, Reports excessive sweating, Reports fatigue, Reports lethargy, Reports malaise and Reports weakness Eyes Eyes: Reports system reviewed and no additional complaints, except as documented ENT Ears, Nose, Mouth, and Throat: Reports dry mouth *Cardiovascular Cardiovascular: Reports system reviewed and no additional complaints, except as documented
[2022-01-03 20:15] LABS: Free T4 (Free Thyroxine) 1.02 ng/dl (0.78-2.19)
[2022-01-03 20:29] LABS: Thyroid Stimulating Hormone 0.42 uIU/mL (0.465-4.68)
--- NOTE | 2022-01-03 20:43 | PC.NURSE ---
Called Natalia with [facility] as it was not clearly noted how the vancomycin and cefepime dosing was verified. Per Natalia, her supervisor of operations Leonid signed off on the dosing earlier. She also noted that the antibiotics were only ordered as a one time dose, which is abnormal for this medication. I asked while speaking to Natalia if this was entered intentionally as a one time dose and she said that it was, that she would prefer the hospitalist control the patients ongoing antibiotics. Natalia stated that the [facility] nurse can call her ([facility]) to confirm the dosing once the order was placed. [facility] was notified regarding this and verbalized understanding.
[2022-01-03 20:53] LABS: Troponin I < 0.01 ng/ml (0.00-0.034)
--- NOTE | 2022-01-03 21:03 | PC.NURSE ---
PT ARRIVED TO FLOOR VIA STRETCHER @ [phone].
[2022-01-03 21:46] LABS: POC Glucose,Bedside 127 (70-110)
[2022-01-03 23:40] LABS: Troponin I < 0.01 ng/ml (0.00-0.034)
[2022-01-04] VITALS (10 sets, daily range): BP systolic 113–174; BP diastolic 53–81; PULSE 75–93; RESP 16–20; TEMP 36.3–37.3; O2SAT 93–98; BMI 34.4
[2022-01-04 01:11] LABS: POC Glucose,Bedside 126 (70-110)
--- NOTE | 2022-01-04 01:27 | PC.NURSE ---
PT CALLED OUT AND STATED SHE FELT FUNNY. PT REASSESSED AND FSBS OBTAINED. FSBS WAS 126. BREATHING REMAINS UNLABORED BUT LUNG SOUNDS ARE WHEEZY. TELE REMAINS UNCHANGED.
[2022-01-04 05:28] LABS: POC Glucose,Bedside 110 (70-110)
--- NOTE | 2022-01-04 05:28 | PC.NURSE ---
NO ACUTE CHANGES SINCE PREVIOUS ASSESSMENT. PT HAS RESTED WELL SINCE ARRIVING TO THE FLOOR. JIMMIE PAWS IN PLACE UPON ARRIVAL TO THE FLOOR. JIMMIE PAWS REMOVED AT APPROXIMATELY 0530. G8RTASH TEMP WAS 99.2. PT HAS ALBRIGHT IN PLACE THAT IS DRAINING ADEQUATE AMOUNTS OF URINE. PT WAS ABLE TO AMBULATE TO THE BATHROOM THIS AM WITH X1 ASSIST. VSS.
--- NOTE | 2022-01-04 06:40 | ECG_ITS ---
APPROVED REPORT Exam: Resting ECG HR:83 bpm ECG Measurements Heart Rate 83 AXES CO 143 P 65 QRSd 89 QRS -2 QT 392 T 66 QTc 431 Conclusion SINUS RHYTHM NONSPECIFIC T-WAVE ABNORMALITY BORDERLINE ECG UNCONFIRMED REPORT Electronically signed by : Jaorn Gomes MD 01/04/2022 17:13:50
[2022-01-04 06:59] LABS: MANUAL DIFFERENTIAL MANUAL DIFFERENTIAL (MANUAL DIFF)
[2022-01-04 07:03] LABS: Basophils % 0.5 % (0.1-2.0); Eosinophils # 0.1 K/mm3 (0.0-0.4); Hemoglobin 12.5 g/dL (12.2-16.2); Lymphocytes # 1.7 K/mm3 (0.7-4.5); Lymphocytes % 18.3 % (10-50); Mean Corpuscular HGB Conc 31.9 g/dL (31.8-35.4); Mean Corpuscular Hemoglobin 31.9 pg (27.0-31.2); Mean Corpuscular Volume 99.8 fl (81-99); Monocytes # 0.6 K/mm3 (0.1-1.0); Monocytes % 6.8 % (1.7-9.3); Neutrophils # 6.8 K/mm3 (1.8-7.8); Neutrophils % 73.5 % (37.0-80.0); Platelet Count 221 K/mm3 (142-424); Red Blood Count 3.91 M/mm3 (4.20-5.40); Red Cell Distribution Width 13.6 % (11.5-17.5); White Blood Count 9.3 K/mm3 (4.8-10.8)
[2022-01-04 07:09] LABS: Chloride 106 mmol/L (98-107)
[2022-01-04 07:10] LABS: Potassium 3.9 mmoL/L (3.5-5.1); Sodium 139 mmol/L (136-145)
[2022-01-04 07:12] LABS: Alanine Aminotransferase 19 U/L (12-78); Alkaline Phosphatase 86 U/L (38-126); Anion Gap 10.9 mEq/L (5-15); Aspartate Amino Transferase 26 U/L (14-36); Bilirubin,Total 0.2 mg/dl (0.2-1.3); Blood Urea Nitrogen 23 mg/dl (7-17); Carbon Dioxide 26 mmol/L (22.0-30.0); Creatinine Clearance Estimated 75 mL/min (50-200); Estimated Glomerular Filt Rate 45 ml/min (>60); GFR (African American) 55 ML/MIN (>60)
[2022-01-04 07:13] LABS: Albumin Level 3.4 g/dl (3.5-5.0); Albumin/Globulin Ratio 1.4 (1.1-1.8); Calcium 8.3 mg/dl (8.4-10.2); Globulin 2.4 g/dL (1.3-3.2); Glucose 108 mg/dl (74-100); Total Protein,Serum 5.8 g/dl (6.3-8.2)
--- NOTE | 2022-01-04 07:25 | HMH.PHAINT1 ---
Pharmacy Intervention Comments: Home medication reconciliation completed using outpatient pharmacy medication fill history.
--- NOTE | 2022-01-04 09:09 | EXP.PHA.CONS ---
Pharmacy Consult Date: 01/04/22 Time: 09:09 Referring provider: DR. FAUSTIN Reason for Consult:: VANCOMYCIN DOSING Allergies Allergy/AdvReac Type Severity Reaction Status Date / Time oxycodone [From PERCOCET] Allergy Unknown Unknown Verified 11/29/21 15:48 allergy reaction isosorbide [From Imdur] AdvReac Severe Headache Verified 11/29/21 15:48 Home Medications Medication Instructions Recorded Confirmed Type cyclobenzaprine 10 mg tablet 10 mg PO TID spasms 01/24/20 01/03/22 History ondansetron 4 mg disintegrating 4 mg PO TID PRN nausea and 10/27/21 01/03/22 Rx tablet vomiting #30 tabs albuterol sulfate 90 mcg/actuation 1 puff inhalation Q4HP PRN asthma 01/03/22 01/03/22 History aerosol inhaler (ProAir HFA) atorvastatin 80 mg tablet 80 mg PO DAILY hyperlipidemia 01/03/22 01/03/22 History blood sugar diagnostic (Blood 01/03/22 01/03/22 History Glucose Test strips) carvedilol 25 mg tablet 25 mg PO BID Hypertension 01/03/22 01/04/22 History clopidogrel 75 mg tablet 75 mg PO DAILY atrial fibrillation 01/03/22 01/03/22 History furosemide 40 mg tablet 60 mg PO DAILY Edema 01/03/22 01/04/22 History insulin NPH-regular 70-30 U-100 28 unit SQ BID Diabetes 01/03/22 01/04/22 History insulin 100 unit/mL subcutaneous pen (Humulin 70/30 U-100 KwikPen) insulin glargine 100 unit/mL 8 unit SQ HS Diabetes 01/03/22 01/03/22 History subcutaneous solution (Lantus U-100 Insulin) loratadine 10 mg tablet 10 mg PO DAILY allergies 01/03/22 01/03/22 History losartan 100 mg tablet 100 mg PO DAILY Hypertension 01/03/22 01/03/22 History nicotine 21 mg/24 hr daily 1 patch transdermal DAILY nicotene 01/03/22 01/03/22 History transdermal patch withdrawal pantoprazole 40 mg tablet,delayed 40 mg PO DAILY acid reflux 01/03/22 01/03/22 History release pen needle, diabetic 32 gauge x 01/03/22 01/03/22 History / (BD Ultra-Fine Becka Pen Needle) ranolazine 1,000 mg 1,000 mg PO BID angina 01/03/22 01/04/22 History tablet,extended release,12 hr rivaroxaban 15 mg tablet (Xarelto) 15 mg PO DAILY atrial fibrillation 01/03/22 01/03/22 History semaglutide 0.25 mg or 0.5 mg (2 0.5 mg SQ WEEKLY Diabetes 01/03/22 01/03/22 History mg/1.5 mL) subcutaneous pen injector (Ozempic) New Prescriptions to Start Prescriptions: Height: 1.7 m Weight: 99.535 kg Laboratory Results:: Laboratory Results - last 24 hr 01/03/22 16:55: Magnesium 1.8 01/03/22 17:05: WBC 7.4, RBC 4.10 L, Hgb 13.2, Hct 40.5, MCV 98.8, MCH 32.1 H, MCHC 32.5, RDW 13.5, Plt Count 224, MPV 7.6, Neut % (Auto) 73.5, Lymph % (Auto) 21.0, [place] % (Auto) 4.3, Eos % (Auto) 0.7, Baso % (Auto) 0.4, Neut # (Auto) 5.4, Lymph # (Auto) 1.6, [place] # (Auto) 0.3, Eos # (Auto) 0.1, Baso # (Auto) 0.0 01/03/22 17:05: Sodium 136, Potassium 3.7, Chloride 101, Carbon Dioxide 27, Anion Gap 11.7, BUN 26 H, Creatinine 1.30 H, Estimated GFR 41 L, Est GFR ( Amer) 50 L, Glucose 159 H, Calcium 8.4, Total Bilirubin 0.3, AST 26, ALT 20, Alkaline Phosphatase 88, Troponin I < 0.01, Total Protein 6.1 L, Albumin 3.6, Globulin 2.5, Albumin/Globulin Ratio 1.4 01/03/22 17:05: C-Reactive Protein 3.4 01/03/22 17:05: Free T4 1.02 01/03/22 17:05: TSH 0.42 L 01/03/22 17:08: POC Glucose 169 H 01/03/22 17:17: SARS-CoV-2 (PCR) Not detected, Influenza A Untype (PCR) Not detected, Influenza Type B (PCR) Not detected 01/03/22 17:35: Lactate 0.7 01/03/22 17:40: VBG pH 7.30 L, VBG pCO2 49.2, VBG pO2 78.5 H, VBG HCO3 23.5, VBG Total CO2 25.0, VBG O2 Saturation 94.8 H, VBG Base Excess -3.0 L 01/03/22 18:37: Urine Color Yellow, Urine Appearance Clear, Urine pH 6.0, Ur Specific [place] 1.025, Urine Protein Trace, Urine Glucose (UA) Negative, Urine Ketones Negative, Urine Blood Negative, Urine Nitrate Negative, Urine Bilirubin Negative, Urine Urobilinogen 0.2, Ur Leukocyte Esterase Negative, Urine RBC Occasional, Urine WBC Occasional, Ur Squamous Epith Cells 3-5, Urine Bacteria 1+, Hyaline Casts 3-5 01/03/22
--- NOTE | 2022-01-04 10:07 | EXP.CARD.CON ---
History of Present Illness History of Present Illness Consult date: 01/04/22 Requesting physician: Gabe Brooks Consult reason: known to you Chief complaint: Weakness, dizziness and nausea Additional Medical History:: 1. HTN for 20 yrs A. Echocardiogram, 12/2014, normal LV size and thickness with EF of 45-55% due to atrial fibrillation. LEFT atrial size was normal. Mild valvular heart disease. B.? Echocardiogram 07/2016, mild LAE at 4.6 cm with normal LV size.? LVEF 50-55% with no WMA.? GIDD.? Mild MR and TR noted. C. Echocardiogram, 05/2017, moderate biatrial enlargement, dilated LV with global hypokinesis and EF 25-30%. Moderately enlarged RV with moderate reduction in RV systolic function. LifeVest was placed. During hospitalization for A. fib. D. Echocardiogram, 07/2017, mild LAE, normal LV size with mild concentric LVH. EF 50% with no WMA. Mild MR and TR. E. Echocardiogram 06/2018, mild LAE, normal LV size with EF 40% and moderate hypokinesis involving the intraventricular septum. No LV thrombus. Grade 1 diastolic dysfunction. Mild MR/TR. F. Echocardiogram, 12/2018, EF 40-45% with moderate global hypokinesis. Inferior wall akinesis noted. G. Echocardiogram 02/03/2020, mild biatrial enlargement, normal LV size, mild conc LVH, EF 50% with no WMA. Grade 1 DD. Mild MR/TR. Mildly enlarged right ventricle with normal contractility. 2. Diabetes, treated since 2011 A. CKD, stage 3-4 3. Right breast mastectomy for Cancer with chemo and radiation at , approx [id number]. A. right arm lymphedema 4. CAD A. NSTEMI, 12/2014 B. TIM X 2 to RCA, 12/2014. On DAPT since then. C. [facility], 08/05/2017 secondary to cardiomyopathy. Mild nonflow limiting CAD, mild LV dilatation with EF 55%, LVEDP 25 mmHg. D. [facility], 01/19/2019-mild nonflow limiting CAD with normal EF and LVEDP of 20 mmHg. E. [facility], 05/18/2020, mild non-flow limiting CAD, normal EF at 65% with LVEDP of 15 mm Hg 5. Obesity 6. Tobacco use, started age 10, 0.5-1 ppd, continued A. Chronic obstructive pulmonary disease and asthma 7. Hyperlipidemia, on statin. 8. FH of cancer A. Father in his mid 30's with cancer, Mother in her 40's with bone cancer 9. History of atrial fibrillation. A. CHADS-VASC score is at least 4, with anticoagulation started 05/2017 10.? Obstructive sleep apnea, 09/2016, with recommendation for AutoPap trial.? AHI index was 19.6 with a respiratory disturbance index of 29.2.? 13 obstructive apneas and one central apnea noted along with 80 hypopneas. 11. Systolic congestive heart failure 12. Carotid artery stenosis, 12/2018, LICA occluded, RAJINDER 50-69% occlusion A. Carotid angiogram, 01/19/2019, chronically occluded LICA with severe stenosis of the R ICA which collateralizes the left hemisphere. Referred to for further evaluation. B. Right carotid artery stenting, Dr. Eric Bills, [facility], 07/10/2019 C. Carotid ultrasound, 09/2020, RAJINDER 50-69% stenosis, Stent seen in the RAJINDER. LICA occluded, unchanged from 04/06/2020 study 13. Renal artery stenosis A. BMS to right renal artery, 01/19/2019, with normal left renal artery. 14. Hypothermia with QT prolongation that resolved with increase in body temperature, 12/2021 History of present illness: Ms. Kulkarni is a 61-year-old female with a past medical history that is positive for COPD, home oxygen dependent at 2L, chronic tobacco abuse, CHF with Diastolic Dysfunction, CKD, Atrial Fibrillation on chronic anticoagulation, IDDM, Cardiomyopathy and history of Orthostatic Hypotension. She presents to [facility] by EMS to the ER today, 01/03/2022 secondary to acute onset of weakness associated with dizziness and nausea that occurred a few hours prior to her arrival.? The patient was seen today in the ER.? She reports that with her symptoms she was concerned she was hypoglycemic.? She reports that she checked her blood glucose by glucometer and it was in the 70's.? She reports that she ate alot o
[2022-01-04 10:34] LABS: Lymphocytes % 23 % (10-50); Macrocytosis 1+; Monocytes % 2 % (2-9); Neutrophils % 75 % (42-76); Platelet Estimate Normal; Total Cells Counted 100
--- NOTE | 2022-01-04 11:18 | CA_ITS ---
FINAL REPORT TECHNIQUE: Color Doppler, duplex Doppler and smith scale sonography of the bilateral neck vasculature was performed. Velocities were measured in the carotid arteries. Stenosis evaluation based on velocity criteria. CLINICAL HISTORY: JOHN, weakness, carotid bruit Rt ICA 50-69% stenosis s/p stenting 06/2019, KNOWN Lt ICA occlussion COMPARISON: 09/30/2020 FINDINGS: The peak systolic velocity of the right common carotid artery is 104 cm/sec and internal carotid artery is 219 cm/sec. The diastolic velocity in the internal carotid artery is 56 cm/sec. The ICA/CCA ratio is 2.1. Visually, there is a moderate to large amount of plaque. These findings are consistent with 50-69% stenosis. The external carotid artery is patent. The right vertebral artery is patent with antegrade flow. The peak systolic velocity of the left common carotid artery is 68 cm/sec. The left internal carotid artery is occluded but not significantly changed as compared to the prior exam. The external carotid artery is patent. The left vertebral artery is patent with antegrade flow. IMPRESSION: 50-69% right carotid artery stenosis, not significantly changed as compared to the prior exam. Occlusion of the left internal carotid artery, not significantly changed as compared to the prior exam. Bilateral patent vertebral arteries. If indicated, CTA or MRA could further evaluate. Reviewed, Interpreted and Dictated by Osman Sheikh III, MD Transcribed by Jenifer Olguin Authenticated and [facility]
[2022-01-04 12:21] LABS: POC Glucose,Bedside 111 (70-110)
[2022-01-04 13:49] LABS: Hemoglobin A1C 5.7 % (4.0-6.0)
[2022-01-04 16:56] LABS: POC Glucose,Bedside 102 (70-110)
--- NOTE | 2022-01-04 17:54 | EXP.ACUTE.PN ---
Subjective *Date: 01/04/22 *Time: 09:00 Interval history: On exam this morning, patient is back to baseline. Alert and oriented x3. Afebrile, no hypothermia. Normotensive. Has no acute complaints. Overall states she feels back to her baseline. Has had abrupt improvement in her clinical status with less than 12 hours of antibiotics. No longer on bear hugger, maintaining her own body temperature. Has not required any insulin since admission. Extensive discussion with patient and sister at bedside about her presentation status, possible etiologies. Medical Exam Vital signs and Labs for Last 24 Hours: Vital Signs Temp Pulse Pulse Resp BP BP Pulse Ox 01/04/22 16:00 80 01/04/22 12:13 93 H 01/04/22 08:00 89 01/04/22 15:40 98.6 F 77 16 113/69 96 01/04/22 11:31 97.6 F 83 17 174/70 H 95 01/04/22 08:00 97.6 F 84 17 143/53 H 93 L 01/04/22 04:00 99.2 F 77 20 151/73 H 98 01/04/22 04:00 80 01/04/22 00:51 97.4 F L 01/04/22 00:00 80 01/04/22 00:00 97.3 F L 76 18 120/70 93 L 01/03/22 21:31 60 01/03/22 21:40 95.5 F L 66 16 113/54 L 93 L 01/03/22 20:47 98 F 62 18 110/56 L 01/03/22 19:01 93.4 F L 54 L 112/53 L 100 01/03/22 18:06 53 L 101/44 L 94 L 01/03/22 18:36 90.0 F L 64 16 92/55 L 98 01/03/22 18:25 54 L 16 101/47 L 94 L 01/03/22 17:56 59 L 94/51 L 96 Intake and Output 01/04/22 01/04/22 01/04/22 07:59 15:59 23:59 Intake Total 250 / 1190 700 / 1190 240 / 1190 Output Total 800 / 800 0 / 800 0 / 800 Balance -550 / 390 700 / 390 240 / 390 Intake: Intake, Oral Amount 600 / 840 240 / 840 Intake, Total IV Amount 250 / 350 100 / 350 Cefepime HCl 2 gm In 0.9 % 100 / 100 Sodium Chloride 100 ml @ 200 mls/hr IV Q8H [facility] Rx#:[id number] Vancomycin HCl 2,000 mg In 0.9 250 / 250 % Sodium Chloride 250 ml @ 125 mls/hr IV ONCE ONE Rx#:[id number] Output: Output, Urine Amount 300 / 300 0 / 300 0 / 300 Output, Urine Amount (Catheter) 500 / 500 Banks 500 / 500 Other: Number of Unmeasured Voids 0 0 1 Weight 99.535 kg 99.5 kg Patient Weight 01/04/22 23:59 Weight 99.5 kg Laboratory Results - last 24 hr 01/03/22 16:55: Magnesium 1.8 01/03/22 17:05: Free T4 1.02 01/03/22 17:05: TSH 0.42 L 01/03/22 17:17: SARS-CoV-2 (PCR) Not detected, Influenza A Untype (PCR) Not detected, Influenza Type B (PCR) Not detected 01/03/22 17:35: Lactate 0.7 01/03/22 17:40: VBG pH 7.30 L, VBG pCO2 49.2, VBG pO2 78.5 H, VBG HCO3 23.5, VBG Total CO2 25.0, VBG O2 Saturation 94.8 H, VBG Base Excess -3.0 L 01/03/22 18:37: Urine Color Yellow, Urine Appearance Clear, Urine pH 6.0, Ur Specific [place] 1.025, Urine Protein Trace, Urine Glucose (UA) Negative, Urine Ketones Negative, Urine Blood Negative, Urine Nitrate Negative, Urine Bilirubin Negative, Urine Urobilinogen 0.2, Ur Leukocyte Esterase Negative, Urine RBC Occasional, Urine WBC Occasional, Ur Squamous Epith Cells 3-5, Urine Bacteria 1+, Hyaline Casts 3-5 01/03/22 20:07: Troponin I < 0.01 01/03/22 21:23: POC Glucose 127 H 01/03/22 21:46: Troponin I < 0.01 01/04/22 00:59: POC Glucose 126 H 01/04/22 05:20: POC Glucose 110 01/04/22 06:36: WBC 9.3 D, RBC 3.91 L, Hgb 12.5, Hct 39.0, MCV 99.8 H, MCH 31.9 H, MCHC 31.9, RDW 13.6, Plt Count 221, MPV 8.0, Neut % (Auto) 73.5, Lymph % (Auto) 18.3, [place] % (Auto) 6.8, Eos % (Auto) 1.0, Baso % (Auto) 0.5, Neut # (Auto) 6.8, Lymph # (Auto) 1.7, [place] # (Auto) 0.6, Eos # (Auto) 0.1, Baso # (Auto) 0.0, Total Counted 100, Neutrophils % (Manual) 75, Lymphocytes % (Manual) 23, Monocytes % (Manual) 2, Platelet Estimate Normal, Macrocytosis + 01/04/22 06:36: Sodium 139, Potassium 3.9, Chloride 106, Carbon Dioxide 26, Anion Gap 10.9, BUN 23 H, Creatinine 1.20 H, Estimated Creat Clear 75, Estimated GFR 45 L, Est GFR ( Amer) 55 L, Glucose 108 H D, Calcium 8.3 L, Total Bilirubin 0.2, AST
--- NOTE | 2022-01-04 18:25 | PC.NURSE ---
No acute changes since pervious assessment. VSS. CB in reach. Pt will cont to be mx'd thru night. Notified Dr. Brooks of positive blood cx's. NNO at this time. No c/o at this time.
[2022-01-04 21:28] LABS: POC Glucose,Bedside 110 (70-110)
--- NOTE | 2022-01-04 21:38 | PC.NURSE ---
Transferred care to Stacy Darden RN. Report given at this time.
--- NOTE | 2022-01-04 23:42 | PC.NURSE ---
[address] Patient asleep. Trash and linens emptied
[2022-01-05] VITALS: PULSE 80
--- NOTE | 2022-01-05 02:10 | PC.NURSE ---
reported positive blood cultures to hospitalist Rolando Valera FACE HARDENER
[2022-01-05 04:00] VITALS: BP 159/70; PULSE 70; PULSE 82; RESP 18; TEMP 36.9; O2SAT 95
[2022-01-05 04:57] VITALS: BMI 35.2
--- NOTE | 2022-01-05 05:51 | PC.NURSE ---
[address] Trash emptied and ice water refilled
--- NOTE | 2022-01-05 06:10 | PC.NURSE ---
pt has had no complaints this shift. NSR on tele with HR 75-84. has remained on RA t/o the night. RUE very edematous. she has ambulated to independently. call light in reach.
[2022-01-05 06:48] LABS: POC Glucose,Bedside 107 (70-110)
[2022-01-05 07:10] LABS: Basophils % 0.5 % (0.1-2.0); Eosinophils # 0.1 K/mm3 (0.0-0.4); Eosinophils % 1.4 % (0.1-12.0); Hematocrit 37.6 % (37.0-47.0); Hemoglobin 12.6 g/dL (12.2-16.2); Lymphocytes # 1.9 K/mm3 (0.7-4.5); Mean Corpuscular HGB Conc 33.4 g/dL (31.8-35.4); Mean Corpuscular Hemoglobin 32.6 pg (27.0-31.2); Mean Corpuscular Volume 97.6 fl (81-99); Mean Platelet Volume 7.6 fl (7.4-10.4); Monocytes # 0.4 K/mm3 (0.1-1.0); Monocytes % 6.6 % (1.7-9.3); Neutrophils # 3.3 K/mm3 (1.8-7.8); Neutrophils % 57.5 % (37.0-80.0); Platelet Count 193 K/mm3 (142-424); Red Blood Count 3.85 M/mm3 (4.20-5.40); Red Cell Distribution Width 13.7 % (11.5-17.5); White Blood Count 5.7 K/mm3 (4.8-10.8)
[2022-01-05 08:00] VITALS: BP 149/87; PULSE 110; PULSE 88; RESP 22; TEMP 36.6; O2SAT 95
[2022-01-05 08:31] LABS: Alanine Aminotransferase 23 U/L (12-78); Albumin Level 3.3 g/dl (3.5-5.0); Albumin/Globulin Ratio 1.2 (1.1-1.8); Alkaline Phosphatase 90 U/L (38-126); Anion Gap 13.2 mEq/L (5-15); Aspartate Amino Transferase 27 U/L (14-36); Bilirubin,Total 0.5 mg/dl (0.2-1.3); Blood Urea Nitrogen 19 mg/dl (7-17); Calcium 8.6 mg/dl (8.4-10.2); Carbon Dioxide 20 mmol/L (22.0-30.0); Chloride 111 mmol/L (98-107); Creatinine Clearance Estimated 84 mL/min (50-200); Estimated Glomerular Filt Rate 50 ml/min (>60); GFR (African American) 61 ML/MIN (>60); Globulin 2.7 g/dL (1.3-3.2); Glucose 105 mg/dl (74-100); Magnesium 1.8 mg/dl (1.6-2.3); Potassium 4.2 mmoL/L (3.5-5.1); Sodium 140 mmol/L (136-145)
--- NOTE | 2022-01-05 11:11 | EXP.DC.SUM ---
General Admission date:: 01/03/22 Discharge date: 01/05/22 HPI HPI HPI: Ms. Kulkarni is a 61-year-old female with a past medical history that is positive for COPD, home oxygen dependent at 2L, chronic tobacco abuse, CHF with Diastolic Dysfunction, CKD, Atrial Fibrillation on chronic anticoagulation, IDDM, Cardiomyopathy and history of Orthostatic Hypotension. She presents to [facility] by EMS to the ER today, 01/03/2022 secondary to acute onset of weakness associated with dizziness and nausea that occurred a few hours prior to her arrival. The patient was seen today in the ER. She reports that with her symptoms she was concerned she was hypoglycemic. She reports that she checked her blood glucose by glucometer and it was in the 70's. She reports that she ate alot of candy and called 911. On EMS arrival the patient was in the 100 range. She was brought into the ER for further evaluation. In the ER, the patient was found to be hypothermic with a temperature of 91, she was hypotensive with blood pressure in the 80s systolic. Initial concern was for sepsis. She was given Fluid bolus' and Vancomcyin and Cefepime in the ER. Blood cultures were drawn along with urine cultures. The patient was also found to be Bradycardic and QTC was prolonged at 544. In the ER the patinet was given Magnesium iv. The patient will be admitted with initial impression: Hypothermia, Hypotension and prolonged qtc. Differentials will be considered and further testing performed. The plan of care was discussed with the patient at bedside in the ER. The patient verbalized understanding and agreement with the plan of care. Hospital Course Hospital Course Hospital Course: 61-year-old female with episode of hypotension and hypothermia.? Resolved quickly with increase in blood sugar and warming blanket/bear hugger.? At this time differential diagnosis includes hypoglycemia, medication side effect, infection.? Response to improvement is not consistent with infection as it is rather brisk and abrupt in the setting of only a single dose of antibiotics.? As she is back to baseline at this time, most concern for medication side effect versus hypoglycemia.? However, blood cultures returned positive at between 22 and 28 hours. All 4 bottles were positive for staph epidermidis. While I have low concern that this is the source of her problem, I cannot disregard the fact that all 4 bottles grew coag negative staph. We will treat empirically for 2 weeks with oral antibiotics. As she is clinically well, will discharge home with close follow-up with her PCP and further monitoring. Repeat cultures obtained and pending at time of discharge. Problems addressed as follows: Hypothermia Hypotension Hypoglycemia Staff epidermidis bacteremia -Patient responded very briskly to warming, glucose supplementation, and holding medications. After single dose of antibiotics, temperature stabilized and returned to baseline. Remained at baseline level of alertness with normal vitals for the duration of her hospitalization. Given a normal A1c of 5.7, I have strong concern that this was all related to hypoglycemia because she is on too much insulin. Recommend holding insulin at discharge. We will continue only Ozempic. Encouraged to have further discussion and adjustment of her diabetic regimen with her PCP. In regard to staff epidermidis bacteremia, have obtained repeat cultures that are pending at time of discharge. Will treat with oral Augmentin for total antibiotic course of 14 days out of extreme precaution. Cardiology was consulted during hospitalization because of her prolonged QT. Ranolazine has been stopped at this time. No other medication adjustments from a blood pressure standpoint. Close follow-up with PCP within the next week. Patient stable for discharge home with family Exam Data for Last 24 hours Vital signs and Labs for Last 24 Hours: Temp Pulse Resp
--- NOTE | 2022-01-05 11:59 | HMH.PHAINT1 ---
Pharmacy Intervention Comments: DISCHARGE MEDICATION COUNSELING PROVIDED. DISCUSSED SHORT-COURSE AUGMENTIN PRESCRIPTION (TWICE DAILY, TAKE WITH FOOD, MAY CAUSE GI UPSET, DIARRHEA). STOP TAKING BOTH INSULINS, ZOFRAN, AND RANEXA. PATIENT ASKED IF THE OZEMPIC WAS CONTINUED, ADVISED IT WAS AND TO TAKE 0.5 MG SQ WEEKLY, PATIENT ASKED WHAT TO DO IF THE AUGMENTIN MADE HER SICK, SHE WAS ADVISED THIS IS RARE BUT TAKING WITH FOOD HELPS AND IF IT WORSENS TO CALL THE MD OR GO TO THE ER. PATIENT VERBALIZED NO ADDITIONAL QUESTIONS AT THIS TIME.
[2022-01-05 12:00] VITALS: BP 130/64; PULSE 77; PULSE 79; RESP 18; TEMP 36.5; O2SAT 96
--- NOTE | 2022-01-05 12:07 | PC.NURSE ---
Pt stated that family cannot be here to get her till after 1300
[2022-01-05 12:11] LABS: POC Glucose,Bedside 105 (70-110)
--- NOTE | 2022-01-08 12:42 | CARE MANAGER ---
Spoke with patient related to hospital discharge. She states that she still doesn't feel the best, but now she is having more respiratory issues such as cough and drainage. She is aware of follow up appointment and all med changes. She states she will schedule an appointment with PCP sooner if she starts to feel worse. Denies questions or concerns. LETI [place]
[2022-01-31 11:51] LABS: MRSA DNA PCR NEGATIVE
== END 2022-01-05 14:42 | disposition home or self-care (01) ==
LOC: ER 19:23 → 2ND 19:45
PROVIDERS: Nurse Practitioner Family; Admitting Provider Internal Medicine Adolescent Medicine; Emergency Provider Emergency Medicine; PCP Nurse Practitioner Family; Visit Provider Internal Medicine Adolescent Medicine
DX: I95.9 Hypotension, unspecified (principal); T68.XXXA Hypothermia, initial encounter; R94.31 Abnormal electrocardiogram [ECG] [EKG]; I13.0 Hypertensive heart and chronic kidney disease with heart failure and stage 1 through stage 4 chronic kidney disease, or unspecified chronic kidney disease; G47.33 Obstructive sleep apnea (adult) (pediatric); F17.210 Nicotine dependence, cigarettes, uncomplicated; N18.30 Chronic kidney disease, stage 3 unspecified; I48.91 Unspecified atrial fibrillation; J44.9 Chronic obstructive pulmonary disease, unspecified; I65.23 Occlusion and stenosis of bilateral carotid arteries; I50.32 Chronic diastolic (congestive) heart failure; I25.10 Atherosclerotic heart disease of native coronary artery without angina pectoris; R78.81 Bacteremia; B95.7 Other staphylococcus as the cause of diseases classified elsewhere; Z79.899 Other long term (current) drug therapy; Z79.01 Long term (current) use of anticoagulants; Z79.4 Long term (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; I42.9 Cardiomyopathy, unspecified; Z99.81 Dependence on supplemental oxygen
CPT/HCPCS: 36415; 71045; 80053; 81001; 82533; 82803; 82962; 83036; 83605; 83735; 84439; 84443; 84484; 85007; 85014; 85018; 85025; 85048; 85049; 86140; 87040; 87077; 87086; 87186; 87641; 93005; 93880; 99285; C9803; G0378; J3370; J3475; U0003; U0005

== ENCOUNTER 2022-03-15 16:37 | Observation (INO) | payer MEDICAID, SELFPAY ==
[2022-03-15] VITALS (8 sets, daily range): BP systolic 132–165; BP diastolic 86–114; PULSE 102–132; RESP 16–24; TEMP 36.4–37.2; O2SAT 93–96; BMI 33.9; BMI 35.9
--- NOTE | 2022-03-15 16:35 | ECG_ITS ---
APPROVED REPORT Exam: Resting ECG HR:132 bpm ECG Measurements Heart Rate 132 AXES QRSd 102 QRS -21 QT 320 T 55 QTc 398 Conclusion ATRIAL FIBRILLATION WITH RAPID VENTRICULAR RESPONSE BORDERLINE LEFT AXIS DEVIATION [QRS AXIS < -20] NONSPECIFIC T-WAVE ABNORMALITY ABNORMAL RHYTHM ECG UNCONFIRMED REPORT Electronically signed by : Jaron Gomes MD 03/16/2022 08:49:18
--- NOTE | 2022-03-15 16:54 | XR_ITS ---
PROCEDURE INFORMATION: Exam: XR Chest Exam date and time: 03/15/2022 4:59 PM Age: 61 years old Clinical indication: Sternal or substernal pain; Prior surgery; Surgery date: 6+ months; Surgery type: Cardiac stents; Additional info: Chest pain, smoker TECHNIQUE: Imaging protocol: Radiologic exam of the chest. Views: 2 views. COMPARISON: CR XR CHEST PORTABLE 01/03/2022 5:33 PM FINDINGS: Lungs: Unremarkable. No consolidation. Pleural spaces: Left pleural effusion. Heart/Mediastinum: Unremarkable. No cardiomegaly. Bones/joints: Unremarkable. IMPRESSION: Left pleural effusion.
[2022-03-15 17:07] LABS: Basophils # 0.1 K/mm3 (0-0.2); Basophils % 1.2 % (0.1-2.0); Eosinophils # 0.1 K/mm3 (0.0-0.4); Eosinophils % 1.5 % (0.1-12.0); Hematocrit 40.7 % (37.0-47.0); Hemoglobin 13.1 g/dL (12.2-16.2); Lymphocytes # 1.9 K/mm3 (0.7-4.5); Lymphocytes % 24.2 % (10-50); Mean Corpuscular HGB Conc 32.1 g/dL (31.8-35.4); Mean Corpuscular Hemoglobin 31.4 pg (27.0-31.2); Mean Corpuscular Volume 97.7 fl (81-99); Mean Platelet Volume 7.8 fl (7.4-10.4); Monocytes # 0.5 K/mm3 (0.1-1.0); Monocytes % 5.7 % (1.7-9.3); Neutrophils # 5.4 K/mm3 (1.8-7.8); Neutrophils % 67.4 % (37.0-80.0); Platelet Count 272 K/mm3 (142-424); Red Blood Count 4.17 M/mm3 (4.20-5.40); Red Cell Distribution Width 14.1 % (11.5-17.5)
--- NOTE | 2022-03-15 17:07 | PC.NURSE ---
PT GOING OVER FOR CXR VIA W/C
[2022-03-15 17:08] LABS: Coronavirus 19, PCR Not Detected (NotDetected); Influenza A, PCR Not Detected (NotDetected); Influenza B, PCR Not Detected (NotDetected)
[2022-03-15 17:08] LABS: Chloride 104 mmol/L (98-107); Sodium 139 mmol/L (136-145)
--- NOTE | 2022-03-15 17:10 | PC.NURSE ---
PT BACK TO ROOM
[2022-03-15 17:11] LABS: Blood Urea Nitrogen 15 mg/dl (7-17); Carbon Dioxide 26 mmol/L (22.0-30.0); Creatinine Clearance Estimated 79 mL/min (50-200); Estimated Glomerular Filt Rate 50 ml/min (>60); GFR (African American) 61 ML/MIN (>60); Glucose 163 mg/dl (74-100)
[2022-03-15 17:22] LABS: Lactic Acid 1.1 mmol/L (0.7-2.1)
[2022-03-15 17:26] LABS: Troponin I < 0.01 ng/ml (0.00-0.034)
--- NOTE | 2022-03-15 17:29 | HMH.EDGENADL ---
Discharge Plan Disposition Patient Disposition: Admitted as Observation Condition: Fair Clinical Impressions Clinical Impression: Atrial fibrillation with rapid ventricular response, Congestive heart failure, Pleural effusion on left Discharge ED Provider: Reggie Schwab General Adult HPI General Chief complaint: Chest Pain Stated complaint: chest pain Time Seen by Provider: 03/15/22 17:35 Mode of Arrival: Wheelchair Source of Information: Patient Limitations: No Limitations Description of Symptoms (Recalled from ER Triage Doc. by RN): c/o chest pain with soa and goes into her left shoulder for 2 days. States she thinks she might have PNA. History of Present Illness HPI narrative: 2-day history of shortness of breath, with dyspnea on exertion, intermittent chest pain that lasts 5 minutes and goes into her left arm. Generalized weakness. Daughter states she cannot walk across the room. Denies edema of the legs. Denies palpitations or sensation of racing heartbeat. She has a history of atrial fibrillation. States that she was admitted a month ago and one of her heart medications was stopped by Dr. Jennings. She is not sure what it is. She complains of a cough, but no fever. No vomiting or diarrhea. Related Data Home Medications Medication Instructions Recorded Confirmed albuterol sulfate 90 mcg/actuation 1 puff inhalation Q4HP PRN asthma 01/03/22 01/17/22 aerosol inhaler (ProAir HFA) atorvastatin 80 mg tablet 80 mg PO DAILY hyperlipidemia 01/03/22 01/17/22 blood sugar diagnostic (Blood 01/03/22 01/17/22 Glucose Test strips) carvedilol 25 mg tablet 25 mg PO BID Hypertension 01/03/22 01/17/22 loratadine 10 mg tablet 10 mg PO DAILY allergies 01/03/22 01/17/22 losartan 100 mg tablet 100 mg PO DAILY Hypertension 01/03/22 01/17/22 pantoprazole 40 mg tablet,delayed 40 mg PO DAILY acid reflux 01/03/22 01/17/22 release pen needle, diabetic 32 gauge x 01/03/22 01/17/22 (BD Ultra-Fine Becka Pen Needle) rivaroxaban 15 mg tablet (Xarelto) 15 mg PO DAILY atrial fibrillation 01/03/22 01/17/22 semaglutide 0.25 mg or 0.5 mg (2 0.5 mg SQ WEEKLY Diabetes 01/03/22 01/17/22 mg/1.5 mL) subcutaneous pen injector (Ozempic) Previous Rx's Medication Instructions Recorded amoxicillin 875 mg-potassium 1 tab PO BID 12 days #24 tabs 01/05/22 clavulanate 125 mg tablet furosemide 40 mg tablet 60 mg PO DAILY Edema 90 days #135 01/22/22 tabs clopidogrel 75 mg tablet See Rx Instructions .Route 01/29/22 .COMPLEX #30 tabs fluticasone propionate 50 See Rx Instructions .Route 02/01/22 mcg/actuation nasal .COMPLEX #16 grams spray,suspension clonazepam 0.5 mg tablet (Klonopin) 0.5 mg PO BID #60 tabs 03/15/22 cyclobenzaprine 10 mg tablet 10 mg PO TID spasms #60 tabs 03/15/22 Allergies Allergy/AdvReac Type Severity Reaction Status Date / Time oxycodone [From PERCOCET] Allergy Unknown Unknown Verified 01/12/22 08:34 allergy reaction isosorbide [From Imdur] AdvReac Severe Headache Verified 01/12/22 08:34 [facility] Disclaimer: The information contained in this section may have been updated after the patient was seen, as this information can be updated by other users. Medical History Abnormal EKG Abnormal stress test Atypical angina Breast cancer Cardiac murmur Cardiomyopathy Congestive heart failure COPD (chronic obstructive pulmonary disease) Diabetes mellitus Diabetes mellitus, type 2 Diastolic dysfunction Ex-smoker Fatigue History of COVID-19 History of gastroesophageal reflux (GERD) History of left heart catheterization (LHC) HTN (hypertension) IDDM (insulin dependent diabetes mellitus) Left carotid bruit Migraine Neuropathic pain Neuropathy ADRIANA (obstructive sleep apnea) Sleep apnea Tachycardia induced cardiomyopathy Tobacco dependence syndrome Surgical History History of righ
--- NOTE | 2022-03-15 17:51 | PC.NURSE ---
Addendum entered by Ana Maria Carrion RN 03/15/22 17:52: BRICE DESAI notified of placing pt on O2 Original Note: pt placed on O2 at 2L per NC at this time r/t pt reporting feeling SOA, SaO2 92% on RA pt reports wears O2 at 2L prn at home and at night
--- NOTE | 2022-03-15 17:57 | PC.NURSE ---
turning sander operator paging dr. banks per BRICE DESAI request
--- NOTE | 2022-03-15 18:26 | PC.NURSE ---
house officer aware pt admission
[2022-03-15 18:35] LABS: NT Pro Brain Natriuretic Pep. 2640 pg/mL (0-125)
[2022-03-15 20:15] LABS: Troponin I < 0.01 ng/ml (0.00-0.034)
--- NOTE | 2022-03-15 21:50 | EXP.HP ---
History of Present Illness *Admission Date: 03/15/22 *Reason for visit:: Shortness of air, Chest Pain *History of present illness: Ms. Kulkarni is a 61-year-old female with a past medical history of Diastolic CHF, Atrial Fibrillation on Chronic Anticoagulation, COPD 1 ppd smoker, IDDM. She presented to [facility] with a 3-day history of shortness of air associated with chest pain and difficulty performing ADL's due to significant shortness of air. In the ER, EKG showed Atrial Fibrillation with a rate of 139, Troponin was <0.01, BNP was elevated at 2640, Covid and Flu testing were negative. Cxray showed a large left pleural effusion. The patient was admitted with initial impression: Atrial Fibrillation with Rapid Ventricular Response, per records reviewed Cardiology recommended Metoprolol 100 mg po bid, the patient was placed on Heparin, Pulmonary was consulted for evaluation and recommendations for Pleural Effusion. The above plan of care was discussed with the patient on admission. She verbalized understanding and agreement with the plan of care. [facility] Disclaimer: The information contained in this section may have been updated after the patient was seen, as this information can be updated by other users. Medical History Abnormal EKG Abnormal stress test Atypical angina Breast cancer Cardiac murmur Cardiomyopathy Congestive heart failure COPD (chronic obstructive pulmonary disease) Diabetes mellitus Diabetes mellitus, type 2 Diastolic dysfunction Ex-smoker Fatigue History of COVID-19 History of gastroesophageal reflux (GERD) History of left heart catheterization (LHC) HTN (hypertension) IDDM (insulin dependent diabetes mellitus) Left carotid bruit Migraine Neuropathic pain Neuropathy ADRIANA (obstructive sleep apnea) Sleep apnea Tachycardia induced cardiomyopathy Tobacco dependence syndrome Surgical History History of right heart catheterization (RHC) History of tonsillectomy Tubal ligation status Family History Other Family history of COPD (chronic obstructive pulmonary disease) Family history of GERD Family history of cancer Family history of diabetes mellitus type II Family history of hyperlipidemia Family history of hypertension Family history of migraine headaches Family history of myocardial infarction Family history of stroke Social History (Updated 03/16/22 @ 00:24 by Sujatha L Pattie, RN) Smoking Status: Current every day smoker tobacco type: cigarettes packs per day: 1 second hand exposure: No alcohol intake: never counseling provided: none substance use type: denies use current occupational status: retired, disabled and other Travel in the last 8 weeks: None household members: family and children housing: house current occupational exposures/hazards: No caffeine: No Review of Systems Review of Systems Review of systems:: pertinent systems reviewed and negative unless documented below Constitutional Constitutional: Reports weakness Eyes Eyes: Reports system reviewed and no additional complaints, except as documented ENT Ears, Nose, Mouth, and Throat: Reports system reviewed and no additional complaints, except as documented *Cardiovascular Cardiovascular: Reports dyspnea and Reports dyspnea on exertion *Respiratory Respiratory: Reports dyspnea and Reports dyspnea on exertion *Gastrointestinal Gastrointestinal: Reports system reviewed and no additional complaints, except as documented *Genitourinary Genitourinary: Reports system reviewed and no additional complaints, except as documented *Musculoskeletal Musculoskeletal: Reports system reviewed and no additional complaints, except as documented and Denies numbness Integumentary/Breasts Skin/Breast: Reports system reviewed and no additional complai
--- NOTE | 2022-03-15 22:19 | PC.NURSE ---
Pt resting in bed. Family at BS
--- NOTE | 2022-03-15 23:02 | PC.NURSE ---
Pt ambulatory to bathroom. Pt advised they would be down to get her as soon as they get the bed made.
[2022-03-15 23:39] LABS: Troponin I < 0.01 ng/ml (0.00-0.034)
--- NOTE | 2022-03-15 23:39 | PC.NURSE ---
pt arrived to floor via wheelchair @ [phone].
[2022-03-16] VITALS: BP 154/110; PULSE 114; RESP 19; TEMP 36.8; O2SAT 97
[2022-03-16 00:13] VITALS: PULSE 100
[2022-03-16 04:00] VITALS: BP 144/78; PULSE 110; PULSE 90; RESP 18; TEMP 36.5; O2SAT 96; BMI 36.0
--- NOTE | 2022-03-16 04:49 | PC.NURSE ---
Pt remains afib on telemetry. Has c/o soa at times. O2 2L NC placed on pt upon arrival to floor. VS have improved. Pt has been up to BR. Call light within reach.
[2022-03-16 05:54] LABS: POC Glucose,Bedside 151 (70-110)
[2022-03-16 06:23] LABS: Chloride 102 mmol/L (98-107); Potassium 3.1 mmoL/L (3.5-5.1); Sodium 136 mmol/L (136-145)
[2022-03-16 06:26] LABS: Alanine Aminotransferase 17 U/L (12-78); Albumin Level 3.4 g/dl (3.5-5.0); Albumin/Globulin Ratio 1.4 (1.1-1.8); Alkaline Phosphatase 120 U/L (38-126); Anion Gap 12.1 mEq/L (5-15); Aspartate Amino Transferase 19 U/L (14-36); Blood Urea Nitrogen 20 mg/dl (7-17); Calcium 8.4 mg/dl (8.4-10.2); Carbon Dioxide 25 mmol/L (22.0-30.0); Creatinine Clearance Estimated 84 mL/min (50-200); Estimated Glomerular Filt Rate 50 ml/min (>60); GFR (African American) 61 ML/MIN (>60); Globulin 2.5 g/dL (1.3-3.2); Glucose 164 mg/dl (74-100); Total Protein,Serum 5.9 g/dl (6.3-8.2)
[2022-03-16 06:27] LABS: Magnesium 1.7 mg/dl (1.6-2.3)
[2022-03-16 06:34] LABS: Basophils # 0.1 K/mm3 (0-0.2); Basophils % 0.8 % (0.1-2.0); Eosinophils # 0.1 K/mm3 (0.0-0.4); Eosinophils % 0.9 % (0.1-12.0); Hematocrit 37.4 % (37.0-47.0); Hemoglobin 12.1 g/dL (12.2-16.2); Lymphocytes # 1.7 K/mm3 (0.7-4.5); Lymphocytes % 23.7 % (10-50); Mean Corpuscular HGB Conc 32.3 g/dL (31.8-35.4); Mean Corpuscular Hemoglobin 30.8 pg (27.0-31.2); Mean Corpuscular Volume 95.3 fl (81-99); Mean Platelet Volume 7.8 fl (7.4-10.4); Monocytes # 0.4 K/mm3 (0.1-1.0); Neutrophils # 4.9 K/mm3 (1.8-7.8); Neutrophils % 68.6 % (37.0-80.0); Platelet Count 244 K/mm3 (142-424); Red Blood Count 3.92 M/mm3 (4.20-5.40); Red Cell Distribution Width 14.3 % (11.5-17.5); White Blood Count 7.1 K/mm3 (4.8-10.8)
--- NOTE | 2022-03-16 07:00 | ECG_ITS ---
APPROVED REPORT Exam: Resting ECG HR:104 bpm ECG Measurements Heart Rate 104 AXES QRSd 97 QRS 29 QT 367 T 9 QTc 427 Conclusion ATRIAL FIBRILLATION WITH RAPID VENTRICULAR RESPONSE NONSPECIFIC T-WAVE ABNORMALITY ABNORMAL RHYTHM ECG UNCONFIRMED REPORT Electronically signed by : Jaron Gomes MD 03/16/2022 08:46:20
--- NOTE | 2022-03-16 07:00 | CA_ITS ---
APPROVED REPORT EXAM: Comprehensive 2D, Doppler, and color-flow Echocardiogram Pi/Senior Research Associate: Galilea Monreal CRT Ht: 5 ft 6 in Wt: 210lbs BSA: 2.04 BP: 150/99 mmHg Indications: cp, L mastectomy, chf, afib, cm, stents, chemo/radiation 10yrs ago, smoker, EF 50% 2D Dimensions Aortic Root 1.58 cm LA Volume 48.80 mL LVOT 1.94 cm (M/F) 1.5-2.5 LA Volume Index 23.30 mL/m2 (M/F) 16-34 M-Mode Dimensions RVDd 2.85 cm (0.9-2.6) LA Diam 4.67 cm (1.9-4.0) LVDd 4.93 cm (3.5-5.7) Ao Diam 3.66 cm (2.0-3.7) LVDs 3.87 cm (3.5-5.7) IVSd 1.32 cm (0.6-1.1) PWd 1.32 cm (0.6-1.1) EF (Teich) 43.40% FS 21.50% EDV (Teich) 114.40 mL TAPSE 1.57 (<1.7) ESV (Teich) 64.70 mL LV Diastology MED E' 5.20 (< 7 cm/sec) MED A' 5.70 cm/s LAT E' 5.70 (<10 cm/sec) LAT A' 3.30 cm/s Aortic Valve AO Peak GR. 4.20 mmHg Pulmonary Valve PV Peak Velocity 102.00 (50-150 cm/s) Tricuspid Valve TR P. Velocity 230.00 cm/s RAP Estimate 10.00 mmHg RVSP 31.20 mmHg Left Ventricle Left atrium is moderately enlarged, left ventricle is normal size, there is severe reduced left ventricular systolic function, estimated ejection fraction 30% left ventricle is globally hypokinetic. Diastolic parameters are inconclusive. Right Ventricle Right atrium and right ventricle are mildly enlarged, contractility right ventricle is mildly reduced. Aortic Valve Aortic valve is thickened and calcified without aortic stenosis or aortic insufficiency. Mitral Valve Mitral valve grossly normal, there is mild mitral regurgitation. Tricuspid Valve Tricuspid grossly normal, there is mild tricuspid regurgitation, tricuspid regurgitation jet velocity is inadequate for calculation of the right ventricular systolic pressure. Pulmonic Valve Pulmonic valve is poorly visualized. Great Vessels Aortic root is normal size. Inferior vena cava is normal size with normal inspiratory collapse. Pericardium Small pericardial effusion noted. Conclusion 1. Biatrial enlargement, severe reduced left ventricular systolic function, estimated ejection fraction 30% left ventricle is globally hypokinetic. 2. Mildly enlarged right ventricle with mild reduced contractility. 3. Mild mitral and tricuspid regurgitation. 4. Small pericardial effusion noted. 5. Inferior vena cava is normal size with normal inspiratory collapse. Electronically signed by : Peter Winslow MD 03/16/2022 14:19:39
[2022-03-16 08:00] VITALS: BP 135/81; PULSE 100; PULSE 98; RESP 23; TEMP 36.5; O2SAT 23; O2SAT 94
--- NOTE | 2022-03-16 09:48 | EXP.PULM.CON ---
History of Present Illness History of present illness: Ms. Kulkarni is a 61-year-old female current smoker smoking history carries a diagnosis of COPD presented to hospital for respiratory 3-4 days H/O worsening cough associated with productive cough and wheezing [facility] Disclaimer: The information contained in this section may have been updated after the patient was seen, as this information can be updated by other users. Medical History Abnormal EKG Abnormal stress test Atypical angina Breast cancer Cardiac murmur Cardiomyopathy Congestive heart failure COPD (chronic obstructive pulmonary disease) Diabetes mellitus Diabetes mellitus, type 2 Diastolic dysfunction Ex-smoker Fatigue History of COVID-19 History of gastroesophageal reflux (GERD) History of left heart catheterization (LHC) HTN (hypertension) IDDM (insulin dependent diabetes mellitus) Left carotid bruit Migraine Neuropathic pain Neuropathy ADRIANA (obstructive sleep apnea) Sleep apnea Tachycardia induced cardiomyopathy Tobacco dependence syndrome Surgical History History of right heart catheterization (RHC) History of tonsillectomy Tubal ligation status Family History Other Family history of COPD (chronic obstructive pulmonary disease) Family history of GERD Family history of cancer Family history of diabetes mellitus type II Family history of hyperlipidemia Family history of hypertension Family history of migraine headaches Family history of myocardial infarction Family history of stroke Social History (Updated 03/16/22 @ 00:24 by Sujatha Blankenship RN) Smoking Status: Current every day smoker tobacco type: cigarettes packs per day: 1 second hand exposure: No alcohol intake: never counseling provided: none substance use type: denies use current occupational status: retired, disabled and other Travel in the last 8 weeks: None household members: family and children housing: house current occupational exposures/hazards: No caffeine: No Review of Systems Constitutional Constitutional: Reports fatigue and Denies headache(s) Eyes Eyes: Denies eye discharge, Denies dry eyes, Denies irritation and Denies itchy eyes ENT Ears, Nose, Mouth, and Throat: Denies headache(s), Denies lip swelling and Denies throat swelling *Cardiovascular Cardiovascular: Reports dyspnea, Reports dyspnea on exertion and Reports orthopnea *Respiratory Respiratory: Reports chest congestion, Reports cough, Reports dyspnea, Reports dyspnea on exertion, Reports excessive phlegm production and Reports wheezing *Gastrointestinal Gastrointestinal: Denies abdominal pain, Denies belching and Denies cramping *Musculoskeletal Musculoskeletal: Denies numbness *Neurologic Neurologic: Reports system reviewed and no additional complaints, except as documented, Denies headache(s) and Denies numbness Psychiatric Psychiatric: Denies homicidal ideation and Denies suicidal ideation Endocrine Endocrine: Reports fatigue and Denies heat intolerance Hematologic/Lymphatic Hematologic/Lymphatic: Denies easy bleeding and Denies lymphadenopathy Allergic/Immunologic Allergic/Immunologic: Denies itchy eyes, Denies lip swelling, Denies throat swelling and Reports wheezing Pulmonology Exam Inpatient Vital signs and Labs for Last 24 Hours: Temp Pulse Resp BP Pulse Ox 97.7 F 110 H 18 144/78 H 96 03/16/22 04:00 03/16/22 04:00 03/16/22 04:00 03/16/22 04:00 03/16/22 04:00 Laboratory Results - last 24 hr 03/15/22 16:40: WBC 8.0, RBC 4.17 L, Hgb 13.1, Hct 40.7, MCV 97.7, MCH 31.4 H, MCHC 32.1, RDW 14.1, Plt Count 272, MPV 7.8, Neut % (Auto) 67.4, Lymph % (Auto) 24.2, [place] % (Auto) 5.7, Eos % (Auto) 1.5, Baso % (Auto) 1.2, Neut # (Auto) 5.4, Lymph # (Auto) 1.9, [place] # (Auto) 0.5, Eos # (Auto) 0.1, Baso # (Auto) 0.1 02/16
[2022-03-16 11:54] LABS: POC Glucose,Bedside 148 (70-110)
[2022-03-16 12:00] VITALS: BP 142/92; PULSE 90; PULSE 96; RESP 16; TEMP 36.9; O2SAT 95
--- NOTE | 2022-03-16 12:29 | EXP.CARD.CON ---
History of Present Illness History of Present Illness Consult date: 03/16/22 Requesting physician: Gabe Brooks Consult reason: chest pain and shortness of breath Chief complaint: SOB, CP History of present illness: This is a 61-year-old white female who presented to the emergency department with a 3-day history of shortness of breath, lower extremity edema and chest pain. The patient states that she was unable to do her ADLs at home because of her significant shortness of breath. She states that this was severe and associated with orthopnea and lower extremity edema. She states that she was having sharp pains in her chest associated with the shortness of breath and she was unable to take deep breaths because of the chest pain. When the patient got to the emergency department she was found to be in atrial fibrillation with RVR rate was in the 130s. Her troponin was negative. Her BNP was elevated 2640. The patient did have a chest x-ray which shows an isolated left pleural effusion. The patient was diuresed with IV Lasix. She states that she feels much better this morning. She states that she can breathe and take deep breaths without having chest pain. She states that she is still short of breath with exertion but this is much better than it was prior to admission. She denies any chest pain or pressure this morning. She denies any fever, chills, nausea, vomiting, diarrhea. [facility] Disclaimer: The information contained in this section may have been updated after the patient was seen, as this information can be updated by other users. Medical History Abnormal EKG Abnormal stress test Atypical angina Breast cancer Cardiac murmur Cardiomyopathy Congestive heart failure COPD (chronic obstructive pulmonary disease) Diabetes mellitus Diabetes mellitus, type 2 Diastolic dysfunction Ex-smoker Fatigue History of COVID-19 History of gastroesophageal reflux (GERD) History of left heart catheterization (LHC) HTN (hypertension) IDDM (insulin dependent diabetes mellitus) Left carotid bruit Migraine Neuropathic pain Neuropathy ADRIANA (obstructive sleep apnea) Sleep apnea Tachycardia induced cardiomyopathy Tobacco dependence syndrome Surgical History History of right heart catheterization (RHC) History of tonsillectomy Tubal ligation status Family History Other Family history of COPD (chronic obstructive pulmonary disease) Family history of GERD Family history of cancer Family history of diabetes mellitus type II Family history of hyperlipidemia Family history of hypertension Family history of migraine headaches Family history of myocardial infarction Family history of stroke Social History (Updated 03/16/22 @ 00:24 by Sujatha Blankenship RN) Smoking Status: Current every day smoker tobacco type: cigarettes packs per day: 1 second hand exposure: No alcohol intake: never counseling provided: none substance use type: denies use current occupational status: retired, disabled and other Travel in the last 8 weeks: None household members: family and children housing: house current occupational exposures/hazards: No caffeine: No Review of Systems Review of Systems Review of systems:: pertinent systems reviewed and negative unless documented below Constitutional Constitutional: Reports system reviewed and no additional complaints, except as documented, Denies headache(s) and Reports weakness Eyes Eyes: Reports system reviewed and no additional complaints, except as documented ENT Ears, Nose, Mouth, and Throat: Reports system reviewed and no additional complaints, except as documented and Denies headache(s) *Cardiovascular Cardiovascular: Reports system reviewed and no additional complaints, except as documented, Reports chest pain (Chest pain with taking
--- NOTE | 2022-03-16 12:44 | EXP.DC.SUM ---
General Admission date:: 03/15/22 Discharge date: 03/16/22 HPI HPI HPI: Ms. Kulkarni is a 61-year-old female with a past medical history of Diastolic CHF, Atrial Fibrillation on Chronic Anticoagulation, COPD 1 ppd smoker, IDDM. She presented to [facility] with a 3-day history of shortness of air associated with chest pain and difficulty performing ADL's due to significant shortness of air. In the ER, EKG showed Atrial Fibrillation with a rate of 139, Troponin was <0.01, BNP was elevated at 2640, Covid and Flu testing were negative. Cxray showed a large left pleural effusion. The patient was admitted with initial impression: Atrial Fibrillation with Rapid Ventricular Response, per records reviewed Cardiology recommended Metoprolol 100 mg po bid, the patient was placed on Heparin, Pulmonary was consulted for evaluation and recommendations for Pleural Effusion. The above plan of care was discussed with the patient on admission. She verbalized understanding and agreement with the plan of care. Hospital Course Hospital Course Hospital Course: Ms. Kulkarni is a 61-year-old who presented to the emergency department with complaints of shortness of breath and chest pain for approximately 3 days prior to admission. She was found to be in Afib with RVR and have an acute exacerbation of HFpEF. She was started on diuretics (lasix) and treated with PO metoprolol. Cardiology was consulted along with pulmonology. She responded well to therapy with improvement in heart rate. Cardiology recommended increasing metoprolol tartrate to 150 mg twice daily for better rate control. Tolerating at time of discharge. Continued long-term anticoagulation with Xarelto. Given fine's of pleural effusion on chest x-ray, pulmonology was consulted for evaluation and assistance in care. Recommended initiating Trelegy 100 inhaler along with continuing her duo nebs at home on an as-needed basis. Continue supplemental oxygen as needed. We continued her Lasix but at an increased dose. Increased at discharge to 80 mg daily. Will need follow-up with pulmonology as an outpatient to monitor pleural effusion. Patient otherwise stable to discharge home given return to baseline function. Cardiac medications at discharge: Metoprolol 150 mg p.o. twice daily Xarelto 20 mg p.o. with supper Lasix 80 mg p.o. daily atorvastatin 80 mg daily Plavix 75 mg daily losartan 100 mg daily Ozempic 0.5 mg subcu weekly Protonix 40 mg daily.? Discharged home in stable condition, Plan to follow-up in cardiology clinic in 1 to 2 weeks with a BMP prior to her appointment. Exam Data for Last 24 hours Vital signs and Labs for Last 24 Hours: Temp Pulse Resp BP Pulse Ox 97.7 F 98 H 23 135/81 23 L 03/16/22 08:00 03/16/22 08:00 03/16/22 08:00 03/16/22 08:00 03/16/22 08:00 Laboratory Results - last 24 hr 03/15/22 16:40: WBC 8.0, RBC 4.17 L, Hgb 13.1, Hct 40.7, MCV 97.7, MCH 31.4 H, MCHC 32.1, RDW 14.1, Plt Count 272, MPV 7.8, Neut % (Auto) 67.4, Lymph % (Auto) 24.2, [place] % (Auto) 5.7, Eos % (Auto) 1.5, Baso % (Auto) 1.2, Neut # (Auto) 5.4, Lymph # (Auto) 1.9, [place] # (Auto) 0.5, Eos # (Auto) 0.1, Baso # (Auto) 0.1 03/15/22 16:40: Sodium 139, Potassium 4.0, Chloride 104, Carbon Dioxide 26, Anion Gap 13.0, BUN 15, Creatinine 1.10 H, Estimated Creat Clear 79, Estimated GFR 50 L, Est GFR ( Amer) 61, Glucose 163 H, Calcium 9.0, Troponin I < 0.01 03/15/22 16:40: NT-Pro-B Natriuret Pep 2640 H 03/15/22 16:45: SARS-CoV-2 (PCR) Not detected, Influenza A Untype (PCR) Not detected, Influenza Type B (PCR) Not detected 03/15/22 17:00: Lactate 1.1 03/15/22 19:43: Troponin I < 0.01 03/15/22 23:00: Troponin I < 0.01 03/16/22 05:39: WBC 7.1, RBC 3.92 L, Hgb 12.1 L, Hct 37.4, MCV 95.3, MCH 30.8, MCHC 32.3, RDW 14.3, Plt Count 244, MPV 7.8, Neut % (Auto) 68.6, Lymph % (Auto) 23.7, [place] % (Auto) 6.0, Eos % (Auto) 0.9, Baso % (Auto) 0.8, Neut # (Auto) 4.9, Lymph # (Auto) 1.7, [place] # (Au
--- NOTE | 2022-03-16 16:08 | PC.NURSE ---
pt refused to wait on pharmacy to come and do medication education, stated her ride was not going to wait any longer
== END 2022-03-16 16:02 | disposition home or self-care (01) ==
LOC: ER 18:12 → 2ND 23:52
PROVIDERS: Admitting Provider Internal Medicine Adolescent Medicine; Emergency Provider Emergency Medicine; PCP Nurse Practitioner Family; Visit Provider Internal Medicine Adolescent Medicine
DX: I50.33 Acute on chronic diastolic (congestive) heart failure (principal); J44.9 Chronic obstructive pulmonary disease, unspecified; J90 Pleural effusion, not elsewhere classified; I70.1 Atherosclerosis of renal artery; I73.9 Peripheral vascular disease, unspecified; R60.1 Generalized edema; I65.23 Occlusion and stenosis of bilateral carotid arteries; I25.118 Atherosclerotic heart disease of native coronary artery with other forms of angina pectoris; I11.0 Hypertensive heart disease with heart failure; G47.33 Obstructive sleep apnea (adult) (pediatric); Z79.01 Long term (current) use of anticoagulants; Z79.02 Long term (current) use of antithrombotics/antiplatelets; Z79.899 Other long term (current) drug therapy; F17.210 Nicotine dependence, cigarettes, uncomplicated; Z79.4 Long term (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; E11.9 Type 2 diabetes mellitus without complications
CPT/HCPCS: 36415; 71046; 80048; 80053; 82962; 83605; 83735; 83880; 84484; 85025; 87040; 93005; 93306; 94640; 99285; C9803; G0378; U0003; U0005

== ENCOUNTER 2022-03-29 14:04 | Observation (INO) | payer MEDICAID, SELFPAY ==
[2022-03-29] VITALS (10 sets, daily range): BP systolic 112–149; BP diastolic 75–110; PULSE 80–127; RESP 16–20; TEMP 36.5–36.7; O2SAT 94–100; BMI 34.9; BMI 34.8
--- NOTE | 2022-03-29 14:28 | XR_ITS ---
FINAL REPORT TECHNIQUE: Single view chest CLINICAL HISTORY: new AF FINDINGS: A single view of the chest was obtained. The heart is enlarged. The lungs are clear. There is no pneumothorax. Osseous structures are unremarkable. IMPRESSION: No acute cardiopulmonary process. Reviewed, Interpreted and Dictated by Osman Sheikh III, MD Transcribed by Kia Aviles Authenticated and [facility]
--- NOTE | 2022-03-29 14:43 | ECG_ITS ---
APPROVED REPORT Exam: Resting ECG HR:119 bpm ECG Measurements Heart Rate 119 AXES QRSd 89 QRS -19 QT 351 T -8 QTc 422 Conclusion ATRIAL FIBRILLATION WITH RAPID VENTRICULAR RESPONSE Old septal changes ABNORMAL ECG UNCONFIRMED REPORT Electronically signed by : Jaron Gomes MD 03/30/2022 10:07:27
--- NOTE | 2022-03-29 14:50 | HMH.EDGENADL ---
Discharge Plan Disposition Patient Disposition: Admitted As Inpatient Condition: Fair Clinical Impressions Clinical Impression: Acute exacerbation of CHF (congestive heart failure) Qualifiers: Heart failure type: combined systolic and diastolic Qualified Code(s): I50.43 - Acute on chronic combined systolic (congestive) and diastolic (congestive) heart failure Discharge ED Provider: Geovani Barrientos General Adult HPI General Chief complaint: Arrhythmia/Palpitations Stated complaint: sent by Dr. Jennings Time Seen by Provider: 03/29/22 14:05 Mode of Arrival: Ambulatory Limitations: No Limitations Description of Symptoms (Recalled from ER Triage Doc. by RN): pt sent from dr peralta office. pt was being seen in office for hospital followup. pt was recently admitted to this hospital. upon assessment in [facility] office, pt was in afib and sent to ER. pt also c/o vomitting for 3 days. History of Present Illness HPI narrative: This is a 61-year-old female with history of CAD, CHF, COPD, cardiomyopathy, A. fib currently on Xarelto, PAD, diabetes, ADRIANA, hypertension, hyperlipidemia who is presenting with palpitations and nausea. Patient states that for the past 3 to 4 days, she has been vomiting nonbloody, nonbilious vomiting almost every time she attempts to take p.o. intake. Has since developed epigastric abdominal pain, but denies fevers, chills, sick contacts, back pain, dysuria, hematuria, cough. She has also had palpitations, but denies overt chest pain, neurologic deficits, or any other relevant history. Related Data Home Medications Medication Instructions Recorded Confirmed albuterol sulfate 90 mcg/actuation 1 puff inhalation Q4HP PRN asthma 01/03/22 03/29/22 aerosol inhaler (ProAir HFA) atorvastatin 80 mg tablet 80 mg PO DAILY hyperlipidemia 01/03/22 03/29/22 blood sugar diagnostic (Blood 01/03/22 03/29/22 Glucose Test strips) loratadine 10 mg tablet 10 mg PO DAILY allergies 01/03/22 03/29/22 losartan 100 mg tablet 100 mg PO DAILY Hypertension 01/03/22 03/29/22 pantoprazole 40 mg tablet,delayed 40 mg PO DAILY acid reflux 01/03/22 03/29/22 release rivaroxaban 15 mg tablet (Xarelto) 15 mg PO DAILY atrial fibrillation 01/03/22 03/29/22 semaglutide 0.25 mg or 0.5 mg (2 0.5 mg SQ WEEKLY Diabetes 01/03/22 03/29/22 mg/1.5 mL) subcutaneous pen injector (Ozempic) cholecalciferol (vitamin D3) 1,250 50,000 unit PO WEEKLY Supplement 03/16/22 03/29/22 mcg (50,000 unit) capsule clopidogrel 75 mg tablet 75 mg PO DAILY platelet inhibitor 03/16/22 03/29/22 insulin NPH-regular 70-30 U-100 28 unit SQ BID Diabetes 03/16/22 03/29/22 insulin 100 unit/mL subcutaneous pen cyclobenzaprine 10 mg tablet 10 mg PO Q8H PRN 03/29/22 03/29/22 Previous Rx's Medication Instructions Recorded furosemide 40 mg tablet 60 mg PO DAILY Edema 90 days #135 01/22/22 tabs clonazepam 0.5 mg tablet (Klonopin) 0.5 mg PO BID #60 tabs 03/15/22 metoprolol tartrate 100 mg tablet 150 mg PO BID 30 days #90 tabs 03/16/22 Allergies Allergy/AdvReac Type Severity Reaction Status Date / Time oxycodone [From PERCOCET] Allergy Unknown Unknown Verified 03/29/22 13:39 allergy reaction isosorbide [From Imdur] AdvReac Severe Headache Verified 03/29/22 13:39 [facility] Disclaimer: The information contained in this section may have been updated after the patient was seen, as this information can be updated by other users. Medical History Abnormal EKG Abnormal stress test Atypical angina Breast cancer Cardiac murmur Cardiomyopathy Congestive heart failure COPD (chronic obstructive pulmonary disease) Diabetes mellitus Diabetes mellitus, type 2 Diastolic dysfunction Ex-smoker Fatigue History of COVID-19 History of gastroesophageal reflux (GERD) History of left heart catheterization (LHC) HTN (hypertension) IDDM (insulin dependent diabetes mellitus) Left carotid bruit Migraine Neur
[2022-03-29 15:09] LABS: Coronavirus 19, PCR Not Detected (NotDetected); Influenza A, PCR Not Detected (NotDetected); Influenza B, PCR Not Detected (NotDetected)
[2022-03-29 15:19] LABS: Basophils # 0.1 K/mm3 (0-0.2); Basophils % 1.1 % (0.1-2.0); Eosinophils # 0.2 K/mm3 (0.0-0.4); Eosinophils % 1.7 % (0.1-12.0); Hematocrit 42.6 % (37.0-47.0); Hemoglobin 13.1 g/dL (12.2-16.2); Lymphocytes % 23.5 % (10-50); Mean Corpuscular HGB Conc 30.7 g/dL (31.8-35.4); Mean Corpuscular Hemoglobin 29.8 pg (27.0-31.2); Mean Corpuscular Volume 97.2 fl (81-99); Mean Platelet Volume 7.7 fl (7.4-10.4); Monocytes # 0.5 K/mm3 (0.1-1.0); Monocytes % 5.8 % (1.7-9.3); Neutrophils # 5.8 K/mm3 (1.8-7.8); Neutrophils % 67.8 % (37.0-80.0); Platelet Count 320 K/mm3 (142-424); Red Blood Count 4.38 M/mm3 (4.20-5.40); Red Cell Distribution Width 14.9 % (11.5-17.5); White Blood Count 8.5 K/mm3 (4.8-10.8)
[2022-03-29 15:28] LABS: Alanine Aminotransferase 19 U/L (12-78); Albumin/Globulin Ratio 1.4 (1.1-1.8); Alkaline Phosphatase 126 U/L (38-126); Anion Gap 12.9 mEq/L (5-15); Aspartate Amino Transferase 23 U/L (14-36); Blood Urea Nitrogen 23 mg/dl (7-17); Calcium 8.7 mg/dl (8.4-10.2); Carbon Dioxide 29 mmol/L (22.0-30.0); Chloride 98 mmol/L (98-107); Creatinine Clearance Estimated 57 mL/min (50-200); Estimated Glomerular Filt Rate 33 ml/min (>60); GFR (African American) 39 ML/MIN (>60); Globulin 2.8 g/dL (1.3-3.2); Glucose 193 mg/dl (74-100); Potassium 3.9 mmoL/L (3.5-5.1); Sodium 136 mmol/L (136-145); Total Protein,Serum 6.8 g/dl (6.3-8.2)
[2022-03-29 15:33] LABS: D-Dimer 0.81 ug/mL (0.0-0.5)
[2022-03-29 15:43] LABS: Troponin I < 0.01 ng/ml (0.00-0.034)
[2022-03-29 15:47] LABS: T4 (Thyroxine) 9.1 ug/dl (5.53-11.0)
[2022-03-29 16:00] LABS: NT Pro Brain Natriuretic Pep. 6380 pg/mL (0-125)
[2022-03-29 16:01] LABS: Thyroid Stimulating Hormone 0.72 uIU/mL (0.465-4.68)
--- NOTE | 2022-03-29 18:07 | PC.NURSE ---
patient arrived by wheelchair from ED
[2022-03-29 18:54] LABS: POC Glucose,Bedside 161 (70-110)
[2022-03-29 19:11] LABS: Troponin I < 0.01 ng/ml (0.00-0.034)
[2022-03-29 21:25] LABS: Troponin I < 0.01 ng/ml (0.00-0.034)
[2022-03-29 21:48] LABS: POC Glucose,Bedside 185 (70-110)
--- NOTE | 2022-03-29 23:57 | EXP.HP ---
History of Present Illness *Admission Date: 03/29/22 *Reason for visit:: nausea and vomiting *History of present illness: this is a 61-year-old female with past medical history of CAD, CHF, COPD, A. fib on Xarelto, PAD, ADRIANA, T2DM, HLD, HTN who presents to the emergency department today with complaints of palpitations and nausea. She reports for the past 3 or 4 days she has had nonbilious nonbloody vomiting with p.o. intake. She had follow-up appointment with Dr. Jennings today regarding her A. fib and was instructed to seek treatment in the emergency department due to her palpitations and nausea. Emergency department work-up significant for acute on chronic CHF exacerbation with an elevated BNP of 6000. She was noted to be A. fib in the 120s. Chest imaging shows large left-sided pleural effusion. She is also noted to be A. fib with RVR with a rate of 120 but in no distress. She received Demetria, Zofran and Lasix in the emergency department admitted to the hospital service for further evaluation management. [facility] Disclaimer: The information contained in this section may have been updated after the patient was seen, as this information can be updated by other users. Medical History Abnormal EKG Abnormal stress test Atypical angina Breast cancer Cardiac murmur Cardiomyopathy Congestive heart failure COPD (chronic obstructive pulmonary disease) Diabetes mellitus Diabetes mellitus, type 2 Diastolic dysfunction Ex-smoker Fatigue History of COVID-19 History of gastroesophageal reflux (GERD) History of left heart catheterization (LHC) HTN (hypertension) IDDM (insulin dependent diabetes mellitus) Left carotid bruit Migraine Neuropathic pain Neuropathy ADRIANA (obstructive sleep apnea) Sleep apnea Tachycardia induced cardiomyopathy Tobacco dependence syndrome Surgical History History of right heart catheterization (RHC) History of tonsillectomy Tubal ligation status Family History Other Family history of COPD (chronic obstructive pulmonary disease) Family history of GERD Family history of cancer Family history of diabetes mellitus type II Family history of hyperlipidemia Family history of hypertension Family history of migraine headaches Family history of myocardial infarction Family history of stroke Social History (Updated 03/29/22 @ 18:40 by Shweta Dave RN) Smoking Status: Current every day smoker tobacco type: cigarettes packs per day: 1 second hand exposure: No alcohol intake: never counseling provided: none substance use type: marijuana current occupational status: retired, disabled and other Travel in the last 8 weeks: None household members: family and children housing: house current occupational exposures/hazards: No caffeine: No Review of Systems Constitutional Constitutional: Reports poor appetite and Reports lethargy Eyes Eyes: Reports system reviewed and no additional complaints, except as documented ENT Ears, Nose, Mouth, and Throat: Reports system reviewed and no additional complaints, except as documented *Cardiovascular Cardiovascular: Reports rapid heart rate *Respiratory Respiratory: Reports system reviewed and no additional complaints, except as documented *Gastrointestinal Gastrointestinal: Reports nausea and Reports vomiting *Genitourinary Genitourinary: Reports system reviewed and no additional complaints, except as documented *Musculoskeletal Musculoskeletal: Reports system reviewed and no additional complaints, except as documented *Neurologic Neurologic: Reports system reviewed and no additional complaints, except as documented Meds Home Medications and Allergies Home Medications Medication Instructions Recorded Confirmed Type albuterol sulfate 90 mcg/actuation 2 puff inhalation Q6HP PRN 01/03/22
[2022-03-30] VITALS (9 sets, daily range): BP systolic 122–142; BP diastolic 50–98; PULSE 66–126; RESP 18–22; TEMP 36.5–36.7; O2SAT 91–98; BMI 34.7; BMI 34.6
--- NOTE | 2022-03-30 05:29 | PC.NURSE ---
No acute changes noted.
[2022-03-30 05:48] LABS: POC Glucose,Bedside 122 (70-110)
[2022-03-30 06:24] LABS: Basophils # 0.1 K/mm3 (0-0.2); Basophils % 1.6 % (0.1-2.0); Eosinophils # 0.2 K/mm3 (0.0-0.4); Hematocrit 39.9 % (37.0-47.0); Hemoglobin 12.2 g/dL (12.2-16.2); Lymphocytes # 2.1 K/mm3 (0.7-4.5); Lymphocytes % 24.2 % (10-50); Mean Corpuscular HGB Conc 30.6 g/dL (31.8-35.4); Mean Corpuscular Hemoglobin 29.5 pg (27.0-31.2); Mean Corpuscular Volume 96.3 fl (81-99); Mean Platelet Volume 7.5 fl (7.4-10.4); Monocytes # 0.6 K/mm3 (0.1-1.0); Monocytes % 6.6 % (1.7-9.3); Neutrophils # 5.8 K/mm3 (1.8-7.8); Neutrophils % 65.6 % (37.0-80.0); Platelet Count 306 K/mm3 (142-424); Red Blood Count 4.15 M/mm3 (4.20-5.40); Red Cell Distribution Width 15.1 % (11.5-17.5); White Blood Count 8.8 K/mm3 (4.8-10.8)
[2022-03-30 06:36] LABS: Alanine Aminotransferase 17 U/L (12-78); Albumin Level 3.5 g/dl (3.5-5.0); Albumin/Globulin Ratio 1.3 (1.1-1.8); Alkaline Phosphatase 129 U/L (38-126); Anion Gap 7.9 mEq/L (5-15); Aspartate Amino Transferase 23 U/L (14-36); Bilirubin,Total 0.9 mg/dl (0.2-1.3); Blood Urea Nitrogen 23 mg/dl (7-17); Calcium 8.3 mg/dl (8.4-10.2); Carbon Dioxide 26 mmol/L (22.0-30.0); Chloride 101 mmol/L (98-107); Creatinine Clearance Estimated 61 mL/min (50-200); Estimated Glomerular Filt Rate 35 ml/min (>60); GFR (African American) 42 ML/MIN (>60); Globulin 2.8 g/dL (1.3-3.2); Glucose 125 mg/dl (74-100); Magnesium 2.3 mg/dl (1.6-2.3); Potassium 3.9 mmoL/L (3.5-5.1); Sodium 131 mmol/L (136-145); Total Protein,Serum 6.3 g/dl (6.3-8.2)
--- NOTE | 2022-03-30 08:12 | HMH.PHAINT1 ---
Pharmacy Intervention Comments: MEDICATION RECONCILIATION COMPLETED ON PATIENT USING EXTERNAL FILL HISTORY FROM PHARMACY. -KEN OLIVIER, CRISTELAD
--- NOTE | 2022-03-30 08:13 | CT_ITS ---
FINAL REPORT CLINICAL HISTORY: Abdominal pain, nausea, vomiting FINDINGS: Axial CT images of the abdomen and pelvis were obtained without intravenous contrast. Coronal reformatted images were also obtained.This study was performed with techniques to keep radiation doses as low as reasonably achievable (ALARA). Individualized dose reduction techniques using automated exposure control or adjustment of mA and/or kV according to the patient's size were employed. Abdomen: There is a small right pleural effusion. There is a small pericardial effusion. There is no evidence of renal stone or hydronephrosis. The gallbladder is partially collapsed with mild wall thickening as a nonspecific finding. The liver, spleen and pancreas have an unremarkable, unenhanced appearance. There are 2 low-attenuation left adrenal nodules measuring up to 2.2 cm and likely represent adenomas. There is a mass in the lateral right kidney measuring 40 mm which cannot be accurately characterized without contrast but may represent a cyst. In addition there is a 21 mm mass in the lower pole of the left kidney which does not appear to be a simple cyst, renal neoplasm is not excluded. No acute inflammatory process is identified. Pelvis: Images of the pelvis reveal no evidence of ureteral dilation or ureteral stone. The appendix is normal. Small calcifications in the uterus may represent small uterine fibroids. There is a small umbilical hernia containing fat. No acute inflammatory process is identified. IMPRESSION: Mass in the lower pole of the left kidney, renal neoplasm not excluded. Recommend renal mass protocol CT. Presumed left adenomas. Reviewed, Interpreted and Dictated by Osman Sheikh III, MD Transcribed by Tavia Lerma Authenticated and [facility]
--- NOTE | 2022-03-30 08:14 | CA_ITS ---
APPROVED REPORT EXAM: Comprehensive 2D, Doppler, and color-flow Echocardiogram Finish Production Manager: Monica Bravo RT(R) Ht: 6 ft 7 in Wt: 223lbs BSA: 2.39 BP: 131/76 mmHg Indications: CHF, CP, COPD, murmur, smoker, JOHN, edema, CAD, HTN, DM, hyperlipidemia, hx rt mastectomy, hx AFIB, ADRIANA. Ordered as limited echo to reassess EF. Echo done 03/16/22 EF had decreased to 30% from 50% on echo done 01/2020. 2D Dimensions LVEF (Palmer's) 29.30 % F: 54 - 74 LV Volume 98.90 mL F: 46 - 106 LV Volume Index 41.38 mL/m2 F: 29 - 61 M-Mode Dimensions RVDd 3.67 cm (0.9-2.6) LVDd 5.22 cm (3.5-5.7) LVDs 4.42 cm (3.5-5.7) IVSd 0.94 cm (0.6-1.1) PWd 0.99 cm (0.6-1.1) EF (Teich) 32.20% FS 15.30% EDV (Teich) 130.70 mL ESV (Teich) 88.60 mL Conclusion 1. Limited echocardiogram was obtained to evaluate left ventricular systolic function. 2. Estimated ejection fraction 30%, left ventricle is globally hypokinetic. Electronically signed by : Peter Winslow MD 03/30/2022 12:56:33
--- NOTE | 2022-03-30 08:15 | EXP.CARD.CON ---
History of Present Illness History of Present Illness Consult date: 03/30/22 Requesting physician: Gabe Brooks Consult reason: congestive heart failure Chief complaint: N/V, CHF Additional Medical History:: 1. HTN for 20 yrs A. Echocardiogram, 12/2014, normal LV size and thickness with EF of 45-55% due to atrial fibrillation. LEFT atrial size was normal. Mild valvular heart disease. B.? Echocardiogram 07/2016, mild LAE at 4.6 cm with normal LV size.? LVEF 50-55% with no WMA.? GIDD.? Mild MR and TR noted. C.? Echocardiogram, 05/2017, moderate biatrial enlargement, dilated LV with global hypokinesis and EF 25-30%.? Moderately enlarged RV with moderate reduction in RV systolic function.? LifeVest was placed. ?During hospitalization for A. fib. D.? Echocardiogram, 07/2017, mild LAE, normal LV size with mild concentric LVH.? EF 50% with no WMA.? Mild MR and TR. E.? Echocardiogram 06/2018, mild LAE, normal LV size with EF 40% and moderate hypokinesis involving the intraventricular septum.? No LV thrombus.? Grade 1 diastolic dysfunction.? Mild MR/TR. F.? Echocardiogram, 12/2018, EF 40-45% with moderate global hypokinesis.? Inferior wall akinesis noted. G.? Echocardiogram 02/03/2020, mild biatrial enlargement, normal LV size, mild conc LVH, EF 50% with no WMA.? Grade 1 DD.? Mild MR/TR.? Mildly enlarged right ventricle with normal contractility. H. Echo, 03/16/2022, EF 30% with global hypo, Bilatrial enlargement 2. Diabetes, treated since 2011 A. CKD, stage 3-4 B. Possible diabetic gastroparesis, 03/2022 3. Right breast mastectomy for Cancer with chemo and radiation at , approx [id number]. A. right arm lymphedema 4. CAD A. NSTEMI, 12/2014 B. TIM X 2 to RCA, 12/2014. On DAPT since then. C.? [facility], 08/05/2017 secondary to cardiomyopathy.? Mild nonflow limiting CAD, mild LV dilatation with EF 55%, LVEDP 25 mmHg. D.? [facility], 01/19/2019-mild nonflow limiting CAD with normal EF and LVEDP of 20 mmHg. E.? [facility], 05/18/2020, mild non-flow limiting CAD, normal EF at 65% with LVEDP of 15 mm Hg 5. Obesity 6. Tobacco use, started age 10, 0.5-1 ppd, continued A. Chronic obstructive pulmonary disease and asthma 7. Hyperlipidemia, on statin. 8. FH of cancer A. Father in his mid 30's with cancer, Mother in her 40's with bone cancer 9. History of atrial fibrillation. A. CHADS-VASC score is at least 4, with anticoagulation started 05/2017 10.? Obstructive sleep apnea, 09/2016, with recommendation for AutoPap trial.? AHI index was 19.6 with a respiratory disturbance index of 29.2.? 13 obstructive apneas and one central apnea noted along with 80 hypopneas. 11.? Systolic congestive heart failure 12.? Carotid artery stenosis, 12/2018, LICA occluded, RAJINDER 50-69% occlusion A.? Carotid angiogram, 01/19/2019, chronically occluded LICA with severe stenosis of the R ICA which collateralizes the left hemisphere.? Referred to for further evaluation. B.? Right carotid artery stenting, Dr. Eric Bills, [facility], 07/10/2019 C.? Carotid ultrasound, 09/2020, 01/04/22, RAJINDER 50-69% stenosis, Stent seen in the RAJINDER.? LICA occluded, unchanged from 04/06/2020 study 13.? Renal artery stenosis A.? BMS to right renal artery, 01/19/2019, with normal left renal artery. 14.? Hypothermia with QT prolongation that resolved with increase in body temperature, 12/2021 History of present illness: this is a 61-year-old female with past medical history of CAD, CHF, COPD, A. fib on Xarelto, PAD, ADRIANA, T2DM, HLD, HTN who presents to the emergency department today with complaints of palpitations and nausea.? She reports for the past 3 or 4 days she has had nonbilious nonbloody vomiting with p.o. intake.? She had follow-up appointment with Dr. Jennings today regarding her A. fib and was instructed to seek treatment in the emergency department due to her palpitations and nausea.? Emergency department work-up significant for acute on chronic CHF exacerbation with an elevated BNP of 6000.? She was noted
[2022-03-30 08:35] LABS: Amylase 73 U/L (30-110); Lipase 92 U/L (23-300)
[2022-03-30 12:45] LABS: POC Glucose,Bedside 88 (70-110)
[2022-03-30 17:21] LABS: POC Glucose,Bedside 112 (70-110)
--- NOTE | 2022-03-30 18:16 | EXP.ACUTE.PN ---
Subjective *Date: 03/30/22 *Time: 18:16 Interval history: Continues to have mild nausea today. No emesis or diarrhea. States she has not had a bowel movement in several days, feels constipated. No chest pain or shortness of breath. No palpitations this morning. Denies confusion. Proved heart rate control on morning vitals. Blood pressure acceptable. Remains afebrile. Medical Exam Vital signs and Labs for Last 24 Hours: Vital Signs Temp Pulse Pulse Resp BP BP Pulse Ox 03/30/22 12:00 98 H 03/30/22 08:09 103 H 03/30/22 16:00 98.0 F 105 H 22 142/98 H 94 L 03/30/22 12:00 97.9 F 106 H 22 131/76 95 03/30/22 08:00 104 H 18 98 03/30/22 08:00 97.9 F 101 H 20 139/81 97 03/30/22 04:00 90 03/30/22 04:00 97.7 F 100 H 18 131/76 98 03/30/22 00:00 100 H 03/30/22 00:00 97.8 F 113 H 18 142/80 H 96 03/29/22 20:00 97 03/29/22 21:27 110 H 03/29/22 20:33 98.1 F 125 H 16 136/75 03/29/22 20:00 103 H 20 136/75 97 03/29/22 18:44 97.7 F 127 H 18 112/75 94 L Intake and Output 03/30/22 03/30/22 03/30/22 07:59 15:59 23:59 Intake Total 1360 / 1360 Output Total 1000 / 1901 901 / 1901 0 / 1901 Balance -1000 / -541 459 / -541 0 / -541 Intake: Intake, Oral Amount 1360 / 1360 Output: Output, Urine Amount 1000 / 1901 901 / 1901 0 / 1901 Other: Number of Unmeasured Voids 1 1 1 Weight 100.244 kg 100 kg Patient Weight 03/30/22 23:59 Weight 100 kg Laboratory Results - last 24 hr 03/29/22 18:02: Troponin I < 0.01 03/29/22 18:27: POC Glucose 161 H 03/29/22 20:43: Troponin I < 0.01 03/29/22 21:34: POC Glucose 185 H 03/30/22 05:36: POC Glucose 122 H 03/30/22 06:05: WBC 8.8, RBC 4.15 L, Hgb 12.2, Hct 39.9, MCV 96.3, MCH 29.5, MCHC 30.6 L, RDW 15.1, Plt Count 306, MPV 7.5, Neut % (Auto) 65.6, Lymph % (Auto) 24.2, [place] % (Auto) 6.6, Eos % (Auto) 2.0, Baso % (Auto) 1.6, Neut # (Auto) 5.8, Lymph # (Auto) 2.1, [place] # (Auto) 0.6, Eos # (Auto) 0.2, Baso # (Auto) 0.1 03/30/22 06:05: Sodium 131 L, Potassium 3.9, Chloride 101, Carbon Dioxide 26, Anion Gap 7.9, BUN 23 H, Creatinine 1.50 H, Estimated Creat Clear 61, Estimated GFR 35 L, Est GFR ( Amer) 42 L, Glucose 125 H D, Calcium 8.3 L, Magnesium 2.3, Total Bilirubin 0.9, AST 23, ALT 17, Alkaline Phosphatase 129 H, Total Protein 6.3, Albumin 3.5 D, Globulin 2.8, Albumin/Globulin Ratio 1.3 03/30/22 06:05: Amylase 73, Lipase 92 03/30/22 12:38: POC Glucose 88 03/30/22 17:12: POC Glucose 112 H I & O for Labs for Last 24 Hours: Intake & Output 03/27/22 03/28/22 03/29/22 03/30/22 23:59 23:59 23:59 23:59 Intake Total 1360 / 1360 Output Total 1901 / 1901 Balance -541 / -541 Weight 100.953 kg 100 kg Constitutional: Present no acute distress, obese and chronically ill appearing Head: Present atraumatic and normocephalic ENT: Present normal exam and mucous membranes moist Neck: Present normal inspection Respiratory: Present normal respiratory effort; Absent wheezes or crackles Cardiac: Present Irregularly Regular GI: Present soft, tenderness (Epigastric and right upper quadrant) and normal bowel sounds; Absent distention Extremities: Present full ROM Comment:: Right UE with lymphedema Skin: Present intact; Absent erythema Neuro: Present Grossly Intact, alert, awake, oriented x 3 and moves all extremities Assessment and Plan *Assessment and plan (1) Nausea & vomiting: Status: Acute Category: Medical Code(s): R11.2 - Nausea with vomiting, unspecified (2) Acute exacerbation of CHF (congestive heart failure): Status: Acute Qualifiers: Heart failure type: combined systolic and diastolic Qualified Code(s): I50.43 - Acute on chronic combined systolic (congestive) and diastolic (congestive) heart failure Category: Medical Code(s): I50.9 - Heart failure, unspecified (3) Cardiomyopathy: Status: Ac
[2022-03-30 21:47] LABS: POC Glucose,Bedside 134 (70-110)
[2022-03-31] VITALS: PULSE 80
[2022-03-31 03:39] VITALS: BP 143/61; PULSE 106; RESP 18; TEMP 36.8; O2SAT 97; BMI 34.6
[2022-03-31 05:20] VITALS: PULSE 100
--- NOTE | 2022-03-31 05:30 | PC.NURSE ---
pt rested well through the night, no issues or concerns, no acute distress, vss, right arm swollen from history of breast surgery and lymphedema, telemetry reveals atrial fib with rvr at times, rate has been 88-126, lung sounds diminished with 02 sats 97% on room air
--- NOTE | 2022-03-31 06:17 | PC.NURSE ---
pts blood sugar this am is 77, pt with some mild sweating noted, juice and crackers given, pt is alert and oriented x4, oliver meléndez was notified and made aware of pts blood sugar this am.
--- NOTE | 2022-03-31 06:42 | P.PN_ITS ---
Subjective *Date: 03/31/22 *Time: 12:38 Interval history: nurse reported am blood sugar 77 , patient in no distress but given some juice Exam Data for Last 24 hours Vital signs and Labs for Last 24 Hours: Temp Pulse Resp BP Pulse Ox 98.2 F 100 H 18 143/61 H 97 03/31/22 03:39 03/31/22 05:20 03/31/22 03:39 03/31/22 03:39 03/31/22 03:39 Laboratory Results - last 24 hr 03/30/22 06:05: Sodium 131 L, Potassium 3.9, Chloride 101, Carbon Dioxide 26, Anion Gap 7.9, BUN 23 H, Creatinine 1.50 H, Estimated Creat Clear 61, Estimated GFR 35 L, Est GFR ( Amer) 42 L, Glucose 125 H D, Calcium 8.3 L, Magnesium 2.3, Total Bilirubin 0.9, AST 23, ALT 17, Alkaline Phosphatase 129 H, Total Protein 6.3, Albumin 3.5 D, Globulin 2.8, Albumin/Globulin Ratio 1.3 03/30/22 06:05: Amylase 73, Lipase 92 03/30/22 12:38: POC Glucose 88 03/30/22 17:12: POC Glucose 112 H 03/30/22 21:00: POC Glucose 134 H I & O for Last 24 hours: Intake & Output 03/28/22 03/29/22 03/30/22 03/31/22 23:59 23:59 23:59 23:59 Intake Total 1840 / 1840 Output Total 1901 / 1901 Balance -61 / -61 Weight 100.953 kg 100 kg 99.989 kg Constitutional Constitutional: no acute distress Assessment and Plan *Assessment and plan (1) Hypoglycemia associated with diabetes: Status: Acute Category: Medical Code(s): E11.649 - Type 2 diabetes mellitus with hypoglycemia without coma Plan mia pass info on to day shift so insulin electronics recycler be adjusted, patient is eating. stopped scheduled insulin. needs eval by PCP for better glucose control once home. continue low dose SSI while in-patient
[2022-03-31 06:55] LABS: POC Glucose,Bedside 77 (70-110)
[2022-03-31 07:33] LABS: Basophils # 0.1 K/mm3 (0-0.2); Basophils % 0.9 % (0.1-2.0); Eosinophils # 0.1 K/mm3 (0.0-0.4); Hematocrit 40.9 % (37.0-47.0); Hemoglobin 12.7 g/dL (12.2-16.2); Lymphocytes # 1.6 K/mm3 (0.7-4.5); Lymphocytes % 15.5 % (10-50); Mean Corpuscular Hemoglobin 29.1 pg (27.0-31.2); Mean Corpuscular Volume 93.9 fl (81-99); Mean Platelet Volume 7.6 fl (7.4-10.4); Monocytes # 0.6 K/mm3 (0.1-1.0); Monocytes % 6.1 % (1.7-9.3); Neutrophils # 8.1 K/mm3 (1.8-7.8); Neutrophils % 76.5 % (37.0-80.0); Platelet Count 306 K/mm3 (142-424); Red Blood Count 4.35 M/mm3 (4.20-5.40); Red Cell Distribution Width 14.6 % (11.5-17.5); White Blood Count 10.5 K/mm3 (4.8-10.8)
--- NOTE | 2022-03-31 07:39 | EXP.DC.SUM ---
General Admission date:: 03/29/22 Discharge date: 03/31/22 HPI HPI HPI: this is a 61-year-old female with past medical history of CAD, CHF, COPD, A. fib on Xarelto, PAD, ADRIANA, T2DM, HLD, HTN who presents to the emergency department today with complaints of palpitations and nausea. She reports for the past 3 or 4 days she has had nonbilious nonbloody vomiting with p.o. intake. She had follow-up appointment with Dr. Jennings today regarding her A. fib and was instructed to seek treatment in the emergency department due to her palpitations and nausea. Emergency department work-up significant for acute on chronic CHF exacerbation with an elevated BNP of 6000. She was noted to be A. fib in the 120s. Chest imaging shows large left-sided pleural effusion. She is also noted to be A. fib with RVR with a rate of 120 but in no distress. She received Demetira, Zofran and Lasix in the emergency department admitted to the hospital service for further evaluation management. Hospital Course Hospital Course Hospital Course: 61-year-old female with history of obesity, diabetes, A. fib, heart failure with reduced ejection fraction, COPD.? Admitted for nausea, vomiting, OLGA and uncontrolled A. fib.? Somewhat improved with increasing her metoprolol.? No vomiting overnight.? Also complains of not having a bowel movement in several days.? Cardiology consulted, appreciate their recommendations.? Problems addressed as follows: A. fib with RVR CAD Heart failure with reduced ejection fraction -Admitted for or persistent A. fib. Echo obtained and cardiology consulted. Continued patient's Xarelto. Cardiology recommended increasing metoprolol to 200 mg twice daily for better rate control. Echo continues to show ejection fraction of approximately 30%. Will need outpatient eval for AICD. Close follow-up with cardiology in the next 1 to 2 weeks to have this discussion. Continue goal-directed therapy with beta-azul, ARB, diuretics. Continue statin and Plavix for CAD. Epigastric pain Nausea vomiting -CT abdomen to evaluate. No significant abnormalities. Did have a full stomach on imaging. Given her diabetes, nausea, full stomach several hours after eating, concern for gastroparesis. Patient also noted to have constipation. Would benefit from formal evaluation for gastroparesis however responded well to Reglan for motility and nausea. Initiated on bowel regimen. Plan to continue pantoprazole, bowel regimen, Reglan on discharge. Further eval in the outpatient setting by PCP Diabetes -Treated with sliding scale insulin during hospitalization. Recommend resuming Ozempic at discharge. May benefit from once a day long-acting insulin as her A1c has increased since stopping her insulin per her report. A1c on admission of 7.8. Stable for discharge home with close follow-up with primary care and cardiology. Exam Data for Last 24 hours Vital signs and Labs for Last 24 Hours: Temp Pulse Resp BP Pulse Ox 98.2 F 100 H 18 143/61 H 97 03/31/22 03:39 03/31/22 05:20 03/31/22 03:39 03/31/22 03:39 03/31/22 03:39 Laboratory Results - last 24 hr 03/30/22 06:05: Amylase 73, Lipase 92 03/30/22 12:38: POC Glucose 88 03/30/22 17:12: POC Glucose 112 H 03/30/22 21:00: POC Glucose 134 H 03/31/22 06:11: POC Glucose 77 03/31/22 07:25: WBC 10.5, RBC 4.35, Hgb 12.7, Hct 40.9, MCV 93.9, MCH 29.1, MCHC 31.0 L, RDW 14.6, Plt Count 306, MPV 7.6, Neut % (Auto) 76.5, Lymph % (Auto) 15.5, Dillingham % (Auto) 6.1, Eos % (Auto) 1.0, Baso % (Auto) 0.9, Neut # (Auto) 8.1 H, Lymph # (Auto) 1.6, Dillingham # (Auto) 0.6, Eos # (Auto) 0.1, Baso # (Auto) 0.1 I & O for Last 24 hours: Intake & Output 03/28/22 03/29/22 03/30/22 03/31/22 23:59 23:59 23:59 23:59 Intake Total 1839 / 184 Output Total 1900 / 1900 Balance -61 / -61 Weight 100.953 kg 100 kg 99.989 kg Constitutional Constitutional: no acute distress, obese and chronically ill appearing *Routine HEENT Exam Head: Pres
[2022-03-31 07:41] LABS: Alanine Aminotransferase 19 U/L (12-78); Albumin Level 3.6 g/dl (3.5-5.0); Albumin/Globulin Ratio 1.3 (1.1-1.8); Alkaline Phosphatase 122 U/L (38-126); Anion Gap 6.2 mEq/L (5-15); Aspartate Amino Transferase 23 U/L (14-36); Blood Urea Nitrogen 33 mg/dl (7-17); Calcium 8.4 mg/dl (8.4-10.2); Carbon Dioxide 30 mmol/L (22.0-30.0); Chloride 101 mmol/L (98-107); Creatinine Clearance Estimated 57 mL/min (50-200); Estimated Glomerular Filt Rate 33 ml/min (>60); GFR (African American) 39 ML/MIN (>60); Globulin 2.7 g/dL (1.3-3.2); Glucose 146 mg/dl (74-100); Magnesium 2.3 mg/dl (1.6-2.3); Potassium 4.2 mmoL/L (3.5-5.1); Sodium 133 mmol/L (136-145); Total Protein,Serum 6.3 g/dl (6.3-8.2)
[2022-03-31 08:12] LABS: Hemoglobin A1C 7.8 % (4.0-6.0)
[2022-03-31 08:39] VITALS: BP 135/70; PULSE 116; RESP 18; TEMP 36.6; O2SAT 98
[2022-03-31 11:19] LABS: POC Glucose,Bedside 111 (70-110)
[2022-03-31 11:55] VITALS: BP 129/59; PULSE 91; RESP 19; TEMP 36.5; O2SAT 94
--- NOTE | 2022-03-31 13:39 | HMH.PHAINT1 ---
Pharmacy Intervention Comments: DISCHARGE MEDICATION COUNSELING PROVIDED. DISCUSSED STOPPING THE METOPROLOL SUCCINATE 150 MG TAB AND STARTING THE METOPROLOL SUCCINATE 200 MG TAB (WATCH FOR SLOWED HEART RATE, LOW BP, DIZZINESS, LIGHTHEADEDNESS), STOPPING THE INSULIN, AND STARTING METOCLOPRAMIDE (FOR GI UPSET, NAUSEA, MAY CAUSE SEDATION, METALLIC TASTE IN MOUTH, URINARY FREQUENCY, SEDATION). PATIENT VERBALIZED NO QUESTIONS AT THIS TIME.
--- NOTE | 2022-03-31 15:48 | PC.NURSE ---
pt has been discahrged from the unit. [facility] pharmacy [facility]. Saline lock discontinued. Pt is alert and appropraite. voiced understanding of all dc education and follow up appts.
--- NOTE | 2022-04-02 14:01 | CARE MANAGER ---
Attempted post-discharge phone interview, left message.
== END 2022-03-31 15:40 | disposition home or self-care (01) ==
LOC: ER 16:12 → 2ND 16:53
PROVIDERS: Physician Assistant; Admitting Provider Internal Medicine Adolescent Medicine; Emergency Provider Emergency Medicine; PCP Nurse Practitioner Family; Visit Provider Internal Medicine Adolescent Medicine
DX: I50.43 Acute on chronic combined systolic (congestive) and diastolic (congestive) heart failure (principal); I48.91 Unspecified atrial fibrillation; J90 Pleural effusion, not elsewhere classified; I42.9 Cardiomyopathy, unspecified; J44.9 Chronic obstructive pulmonary disease, unspecified; I25.118 Atherosclerotic heart disease of native coronary artery with other forms of angina pectoris; N18.4 Chronic kidney disease, stage 4 (severe); G47.33 Obstructive sleep apnea (adult) (pediatric); I13.0 Hypertensive heart and chronic kidney disease with heart failure and stage 1 through stage 4 chronic kidney disease, or unspecified chronic kidney disease; E11.649 Type 2 diabetes mellitus with hypoglycemia without coma; Z79.01 Long term (current) use of anticoagulants; Z79.02 Long term (current) use of antithrombotics/antiplatelets; Z79.899 Other long term (current) drug therapy; Z79.4 Long term (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; Z86.16 Personal history of COVID-19; F17.210 Nicotine dependence, cigarettes, uncomplicated; I89.0 Lymphedema, not elsewhere classified; I65.23 Occlusion and stenosis of bilateral carotid arteries; I70.1 Atherosclerosis of renal artery; Z20.822 Contact with and (suspected) exposure to COVID-19
CPT/HCPCS: 36415; 71045; 74176; 80053; 82150; 82962; 83036; 83690; 83735; 83880; 84436; 84443; 84484; 85025; 85378; 93005; 93308; 99285; C9803; G0378; J2405; J3475; U0003; U0005

== ENCOUNTER 2022-06-19 14:42 | Emergency (ER) | payer MEDICAID, SELFPAY ==
[2022-06-19] VITALS (11 sets, daily range): BP systolic 83–140; BP diastolic 44–87; PULSE 60–101; RESP 17–18; TEMP 36.6; O2SAT 91–98; BMI 32.5
--- NOTE | 2022-06-19 14:42 | ECG_ITS ---
APPROVED REPORT Exam: Resting ECG HR:70 bpm ECG Measurements Heart Rate 70 AXES QRSd 108 QRS -15 QT 399 T 32 QTc 420 Conclusion ATRIAL FIBRILLATION NONSPECIFIC T-WAVE ABNORMALITY ABNORMAL RHYTHM ECG UNCONFIRMED REPORT Electronically signed by : Jaron Gomes MD 06/19/2022 21:13:28
--- NOTE | 2022-06-19 15:18 | CT_ITS ---
FINAL REPORT TECHNIQUE: Postcontrast axial images through the abdomen and pelvis were performed. This study was performed with techniques to keep radiation doses as low as reasonably achievable, (ALARA). Individualized dose reduction techniques using automated exposure control or adjustment of mA and/or kV according to the patient's size were employed. CLINICAL HISTORY: abdominal pain, RUQ COMPARISON: 03/30/2022 FINDINGS: Abdomen: There is a calcified granuloma in the left lung base. The liver parenchyma is homogeneous. The gallbladder is present. The spleen is unremarkable. There are low-attenuation nodules in the left adrenal gland, largest measures 2.3 x 1.5 cm, probably due to adenomas. The pancreas is unremarkable. There is a low-attenuation focus in the periphery of the right kidney measuring 2.5 cm in diameter. This focus has a mean attenuation value of 8 Hounsfield units. There is a 2nd exophytic focus in the posterior left kidney measuring 2.1 cm in diameter with a mean attenuation value of 17 Hounsfield units. The aorta is normal in caliber. No free fluid or adenopathy is identified. No findings for mechanical bowel obstruction are identified. Pelvis: The appendix is normal. A few calcified fibroids are seen in the uterus. The urinary bladder is incompletely distended. No free fluid, free air, abscess or adenopathy is identified. IMPRESSION: Left adrenal nodules, probably due to adenomas. Indeterminate structures in both kidneys, probably related to complex benign cysts. Findings are fairly similar to previous. Dedicated pre and post renal mass protocol CT could confirm. Reviewed, Interpreted and Dictated by Denton Paulino MD Transcribed by Stephanie Orellana Authenticated and [facility]
--- NOTE | 2022-06-19 15:18 | XR_ITS ---
FINAL REPORT CLINICAL HISTORY: cough COMPARISON: 03/29/2022 FINDINGS: SINGLE-VIEW CHEST The heart size is normal. The mediastinum is normal. The lungs are clear. There is no pneumothorax. IMPRESSION: No acute cardiopulmonary process. Reviewed, Interpreted and Dictated by Denton Paulino MD Transcribed by Stephanie Orellana Authenticated and [facility]
--- NOTE | 2022-06-19 15:18 | US_ITS ---
FINAL REPORT CLINICAL HISTORY: RUQ pain FINDINGS: Ultrasound images of the right upper quadrant were obtained. The liver parenchyma is increased echogenicity. The gallbladder is incompletely distended. There are no gallstones. The common duct is normal. Limited images of the right kidney demonstrated 2.4 cm cyst. IMPRESSION: Fatty liver. Right renal cyst. Reviewed, Interpreted and Dictated by Denton Paulino MD Transcribed by Eddie Enriquez Authenticated and [facility]
[2022-06-19 15:33] LABS: Basophils # 0.1 K/mm3 (0-0.2); Basophils % 1.2 % (0.1-2.0); Eosinophils # 0.1 K/mm3 (0.0-0.4); Eosinophils % 0.9 % (0.1-12.0); Hematocrit 50.9 % (37.0-47.0); Hemoglobin 16.1 g/dL (12.2-16.2); Lymphocytes # 2.7 K/mm3 (0.7-4.5); Lymphocytes % 36.3 % (10-50); Mean Corpuscular HGB Conc 31.6 g/dL (31.8-35.4); Mean Corpuscular Hemoglobin 27.2 pg (27.0-31.2); Mean Platelet Volume 7.8 fl (7.4-10.4); Monocytes # 0.5 K/mm3 (0.1-1.0); Monocytes % 6.9 % (1.7-9.3); Neutrophils # 4.1 K/mm3 (1.8-7.8); Neutrophils % 54.7 % (37.0-80.0); Platelet Count 296 K/mm3 (142-424); Red Blood Count 5.91 M/mm3 (4.20-5.40); Red Cell Distribution Width 17.6 % (11.5-17.5); White Blood Count 7.5 K/mm3 (4.8-10.8)
[2022-06-19 15:34] LABS: Chloride 97 mmol/L (98-107); Potassium 3.8 mmoL/L (3.5-5.1); Sodium 135 mmol/L (136-145)
[2022-06-19 15:37] LABS: Alanine Aminotransferase 38 U/L (12-78); Albumin Level 4.2 g/dl (3.5-5.0); Albumin/Globulin Ratio 1.3 (1.1-1.8); Alkaline Phosphatase 139 U/L (38-126); Anion Gap 14.8 mEq/L (5-15); Aspartate Amino Transferase 35 U/L (14-36); Bilirubin,Total 0.7 mg/dl (0.2-1.3); Blood Urea Nitrogen 45 mg/dl (7-17); Carbon Dioxide 27 mmol/L (22.0-30.0); Creatinine Clearance Estimated 43 mL/min (50-200); Estimated Glomerular Filt Rate 25 ml/min (>60); GFR (African American) 30 ML/MIN (>60); Globulin 3.3 g/dL (1.3-3.2); Total Protein,Serum 7.5 g/dl (6.3-8.2)
--- NOTE | 2022-06-19 15:37 | HMH.EDGENADL ---
Discharge Plan Disposition Patient Disposition: Home, Self-Care Condition: Good Prescriptions Prescriptions: New metoclopramide HCl [Reglan] 10 mg tablet 10 mg PO DAILY Qty: 10 0RF No Action insulin glargine 100 unit/mL (3 mL) insulin pen 15 unit SQ BID nicotine 21 mg/24 hr patch 24 hour transdermal DAILY atorvastatin 80 mg tablet See Rx Instructions .ROUTE .COMPLEX Qty: 30 5RF Dose Instruction: TAKE ONE TABLET BY MOUTH EVERY DAY Rx Instructions: TAKE ONE TABLET BY MOUTH EVERY DAY bumetanide 1 mg tablet 1 mg PO BID Qty: 60 2RF metoprolol tartrate 100 mg tablet 100 mg PO BID Qty: 60 2RF spironolactone 25 mg tablet 25 mg PO DAILY Qty: 90 1RF valsartan 40 mg tablet 40 mg PO DAILY Qty: 90 1RF Farxiga 10 mg tablet 10 mg PO DAILY Qty: 90 1RF Xarelto 15 mg tablet See Rx Instructions .ROUTE .COMPLEX Qty: 90 1RF Dose Instruction: TAKE ONE TABLET BY MOUTH EVERY DAY Rx Instructions: TAKE ONE TABLET BY MOUTH EVERY DAY cyclobenzaprine 10 mg tablet See Rx Instructions .ROUTE .COMPLEX Qty: 60 0RF Dose Instruction: TAKE ONE TABLET BY MOUTH EVERY 8 HOURS FOR SPASMS MAY CAUSE DROWSINESS Rx Instructions: TAKE ONE TABLET BY MOUTH EVERY 8 HOURS FOR SPASMS MAY CAUSE DROWSINESS (DME) pen needle, diabetic [BD Ultra-Fine Becka Pen Needle] 32 gauge x 5/32 needle See Rx Instructions .Route Qty: 100 0RF Rx Instructions: As directed clonazepam 0.5 mg tablet 0.5 mg PO BID PRN (Reason: agitation) Qty: 60 1RF fluticasone propionate 50 mcg/actuation spray,suspension See Rx Instructions .ROUTE .COMPLEX Qty: 16 1RF Dose Instruction: instill 1 SPRAY IN EACH NOSTRIL EVERY DAY Rx Instructions: instill 1 SPRAY IN EACH NOSTRIL EVERY DAY pantoprazole 40 mg tablet,delayed release (DR/EC) 40 mg PO DAILY albuterol sulfate [ProAir HFA] 90 mcg/actuation HFA aerosol inhaler 2 puff inhalation Q6HP PRN (Reason: Shortness Of Breath) clopidogrel 75 mg tablet 75 mg PO DAILY Referrals Follow up/Referrals: Justin Flores MD [Primary Care Provider] - See instructions Clinical Impressions Clinical Impression: Dehydration, Chest pain, Abdominal pain Instructions Patient Instructions: Dehydration, DI for Atypical Chest Pain Print Language Print Language: French Discharge ED Provider: Cesar Mascorro General Adult HPI General Chief complaint: Chest Pain Stated complaint: CP Time Seen by Provider: 06/19/22 18:19 Mode of Arrival: Ambulatory Source of Information: Patient Limitations: No Limitations Description of Symptoms (Recalled from ER Triage Doc. by RN): pt to ED with cough and SOB x 4 days and left anterior chest pain since this morning. pt describes her pain as a short intermitten stabbing pain that radiates into her left ribs and improves when she lifts her left breast. History of Present Illness HPI narrative: Patient presents to the emergency department multiple complaints including right-sided abdominal tenderness and left-sided chest pain. The patient states that she was seen by her surgical aide today in [place] at [facility] for her right-sided abdominal pain who recommended ultrasound. She denies any fever, chills, but does describe recent cough and congestion. She states that she has left-sided chest pain and this improves with lifting her left breast. Denies any worsening shortness of breath than her baseline. Related Data Home Medications Medication Instructions Recorded Confirmed albuterol sulfate 90 mcg/actuation 2 puff inhalation Q6HP PRN 01/03/22 06/19/22 aerosol inhaler (ProAir HFA) Shortness Of Breath pantoprazole 40 mg tablet,delayed 40 mg PO DAILY GERD 01/03/22 06/19/22 release clopidogrel 75 mg tablet 75 mg PO DAILY platelet inhibitor 03/16/22 06/19/22 insulin glargine 100 unit/mL (3 15 unit SQ BID 04/30/22 06/19/22 mL) subcutaneous
[2022-06-19 15:38] LABS: Calcium 9.2 mg/dl (8.4-10.2); Glucose 198 mg/dl (74-100)
--- NOTE | 2022-06-19 16:04 | PC.NURSE ---
pt back from US at this time. pt hooked back up on the monitor, fluids administered and lactic collected
[2022-06-19 16:18] LABS: Troponin I < 0.01 ng/ml (0.00-0.034)
[2022-06-19 16:20] LABS: Lactic Acid 1.6 mmol/L (0.7-2.1)
[2022-06-19 16:28] LABS: Procalcitonin 0.175 ng/mL (0.0-2.0)
[2022-06-19 17:36] LABS: Microscopic, Urine URINE MICROSCOPIC (MICROSCOPIC)
[2022-06-19 17:45] LABS: Appearance,Urine CLEAR (Clear); Bilirubin,Urine Negative (Negative); Blood, Urine Negative (Negative); Color,Urine YELLOW (Yellow); Glucose,Urine (UA) 3+ (Negative); Ketones,Urine Negative (Negative); Leukocyte Esterase,Urine 1+ (Negative); Nitrate,Urine Negative (Negative); Protein,Urine TRACE (Negative); Specific Gravity, Urine 1.015 (1.005-1.030); Urobilinogen,Urine 0.2 EU/dl (0.2)
[2022-06-19 17:56] LABS: Bacteria,Urine 2+ /lpf
== END 2022-06-19 18:35 | disposition home or self-care (01) ==
PROVIDERS: Emergency Provider Emergency Medicine; PCP Emergency Medicine
DX: R07.9 Chest pain, unspecified (principal); R10.9 Unspecified abdominal pain; E86.0 Dehydration; I48.91 Unspecified atrial fibrillation
CPT/HCPCS: 71045; 74176; 76705; 80053; 81001; 83605; 84145; 84484; 85025; 87086; 87088; 87186; 93005; 96360; 96374; 99285

== ENCOUNTER → 2022-06-28 09:26 | Outpatient (CLI) | payer MEDICAID, SELFPAY | PROVIDERS: PCP Emergency Medicine; Visit Provider Nurse Practitioner Family | DX: R19.00 Intra-abdominal and pelvic swelling, mass and lump, unspecified site (principal) ==

== ENCOUNTER 2022-07-26 16:55 | Inpatient (IN) | payer MEDICAID, SELFPAY ==
[2022-07-26] VITALS (9 sets, daily range): BP systolic 110–154; BP diastolic 59–87; PULSE 67–105; RESP 17–23; TEMP 36.6–36.8; O2SAT 87–94; BMI 32.5
--- NOTE | 2022-07-26 17:01 | XR_ITS ---
PROCEDURE INFORMATION: Exam: XR Chest Exam date and time: 07/26/2022 5:21 PM Age: 61 years old Clinical indication: Cough and shortness of breath; Additional info: SOA TECHNIQUE: Imaging protocol: Radiologic exam of the chest. Views: 1 view. COMPARISON: CR XR CHEST PORTABLE 06/19/2022 4:23 PM FINDINGS: Lungs: Unremarkable. No consolidation. Pleural spaces: Unremarkable. No pleural effusion. No pneumothorax. Heart/Mediastinum: Unremarkable. No cardiomegaly. Bones/joints: Unremarkable. IMPRESSION: No acute findings. No infiltration seen.
--- NOTE | 2022-07-26 17:02 | ECG_ITS ---
APPROVED REPORT Exam: Resting ECG HR:65 bpm ECG Measurements Heart Rate 65 AXES ME 145 P 42 QRSd 98 QRS -4 QT 426 T -30 QTc 437 Conclusion SINUS RHYTHM Left atrial abnormality INCOMPLETE RIGHT BUNDLE BRANCH BLOCK NONSPECIFIC ST & T-WAVE ABNORMALITY BORDERLINE ECG UNCONFIRMED REPORT Electronically signed by : Jaron Gomes MD 07/27/2022 15:02:06
--- NOTE | 2022-07-26 17:07 | PC.NURSE ---
RT at BS
--- NOTE | 2022-07-26 17:20 | HMH.EDGENADL ---
Discharge Plan Disposition Patient Disposition: Admitted As Inpatient Chief Complaint: Shortness of Breath/Dyspnea Prescriptions Prescriptions: No Action insulin glargine 100 unit/mL (3 mL) insulin pen 15 unit SQ BID ondansetron HCl 4 mg tablet 4 mg PO DAILY losartan 100 mg tablet 100 mg PO DAILY Label Comments: TAKE ONE TABLET BY MOUTH EVERY DAY FOR HIGH BLOOD PRESSURE loratadine 10 mg tablet 10 mg PO DAILY clonazepam 0.5 mg tablet 0.5 mg PO BID PRN (Reason: agitation) Qty: 30 0RF Rx Instructions: No more until appt. nicotine 21 mg/24 hr patch 24 hour transdermal DAILY atorvastatin 80 mg tablet See Rx Instructions .ROUTE .COMPLEX Qty: 30 5RF Dose Instruction: TAKE ONE TABLET BY MOUTH EVERY DAY Rx Instructions: TAKE ONE TABLET BY MOUTH EVERY DAY bumetanide 1 mg tablet 1 mg PO BID Qty: 60 2RF spironolactone 25 mg tablet 25 mg PO DAILY Qty: 90 1RF valsartan 40 mg tablet 40 mg PO DAILY Qty: 90 1RF Farxiga 10 mg tablet 10 mg PO DAILY Qty: 90 1RF Xarelto 15 mg tablet See Rx Instructions .ROUTE .COMPLEX Qty: 90 1RF Dose Instruction: TAKE ONE TABLET BY MOUTH EVERY DAY Rx Instructions: TAKE ONE TABLET BY MOUTH EVERY DAY cyclobenzaprine 10 mg tablet See Rx Instructions .ROUTE .COMPLEX Qty: 60 0RF Dose Instruction: TAKE ONE TABLET BY MOUTH EVERY 8 HOURS FOR SPASMS MAY CAUSE DROWSINESS Rx Instructions: TAKE ONE TABLET BY MOUTH EVERY 8 HOURS FOR SPASMS MAY CAUSE DROWSINESS (DME) pen needle, diabetic [BD Ultra-Fine Becka Pen Needle] 32 gauge x 5/32 needle See Rx Instructions .Route Qty: 100 0RF Rx Instructions: As directed fluticasone propionate 50 mcg/actuation spray,suspension See Rx Instructions .ROUTE .COMPLEX Qty: 16 1RF Dose Instruction: instill 1 SPRAY IN EACH NOSTRIL EVERY DAY Rx Instructions: instill 1 SPRAY IN EACH NOSTRIL EVERY DAY metoprolol tartrate 100 mg tablet 300 mg PO BID Qty: 180 5RF levofloxacin 750 mg tablet 750 mg PO Q48H 5 Days Qty: 2 0RF methylprednisolone 4 mg tablets,dose pack See Rx Instructions PO PER PKG DIR Qty: 21 0RF Rx Instructions: PO PER PKG DIR pantoprazole 40 mg tablet,delayed release (DR/EC) 40 mg PO DAILY albuterol sulfate [ProAir HFA] 90 mcg/actuation HFA aerosol inhaler 2 puff inhalation Q6HP PRN (Reason: Shortness Of Breath) metoclopramide HCl [Reglan] 10 mg tablet 10 mg PO DAILY Qty: 10 0RF clopidogrel 75 mg tablet 75 mg PO DAILY Referrals Follow up/Referrals: Nickolas Matthew APRN [Primary Care Provider] - See instructions Clinical Impressions Clinical Impression: Acute exacerbation of COPD with asthma Discharge ED Provider: Bud Alexander General Adult HPI General Chief complaint: Shortness of Breath/Dyspnea Stated complaint: SOB Time Seen by Provider: 07/26/22 17:00 History of Present Illness HPI narrative: 61-year-old female history of COPD CHF A-fib diabetes presents with shortness of breath for the last few days with a productive cough. She says she has been on antibiotics and had a shot of antibiotics other day however has not been improving. She was on Levaquin and methylprednisolone for 2 days. No fever or chills. She did not smoke today. No abdominal pain nausea vomiting. She is on 2 L O2 at home. This is at baseline. No coughing up blood recent travel or surgeries. Related Data Home Medications Medication Instructions Recorded Confirmed albuterol sulfate 90 mcg/actuation 2 puff inhalation Q6HP PRN 01/03/22 07/24/22 aerosol inhaler (ProAir HFA) Shortness Of Breath pantoprazole 40 mg tablet,delayed 40 mg PO DAILY GERD 01/03/22 07/24/22 release clopidogrel 75 mg tablet 75 mg PO DAILY platelet inhibitor 03/16/22 07/24/22 insulin glargine 100 unit/mL (3 15 unit SQ BID 04/30/22 07/24/22 mL) subcutaneous pen nicotine 21 mg/24 hr da
[2022-07-26 17:35] LABS: Basophils % 0.2 % (0.1-2.0); Eosinophils % 0.3 % (0.1-12.0); Hematocrit 47.6 % (37.0-47.0); Hemoglobin 15.1 g/dL (12.2-16.2); Lymphocytes # 1.8 K/mm3 (0.7-4.5); Lymphocytes % 15.5 % (10-50); Mean Corpuscular HGB Conc 31.7 g/dL (31.8-35.4); Mean Corpuscular Hemoglobin 27.1 pg (27.0-31.2); Mean Corpuscular Volume 85.7 fl (81-99); Mean Platelet Volume 7.5 fl (7.4-10.4); Monocytes # 0.4 K/mm3 (0.1-1.0); Monocytes % 3.7 % (1.7-9.3); Neutrophils # 9.3 K/mm3 (1.8-7.8); Neutrophils % 80.3 % (37.0-80.0); Platelet Count 258 K/mm3 (142-424); Red Blood Count 5.56 M/mm3 (4.20-5.40); Red Cell Distribution Width 18.8 % (11.5-17.5); White Blood Count 11.6 K/mm3 (4.8-10.8)
[2022-07-26 17:40] LABS: Alanine Aminotransferase 26 U/L (12-78); Albumin Level 4.1 g/dl (3.5-5.0); Albumin/Globulin Ratio 1.2 (1.1-1.8); Alkaline Phosphatase 147 U/L (38-126); Anion Gap 20.2 mEq/L (5-15); Aspartate Amino Transferase 28 U/L (14-36); Bilirubin,Total 0.9 mg/dl (0.2-1.3); Blood Urea Nitrogen 38 mg/dl (7-17); Calcium 9.3 mg/dl (8.4-10.2); Carbon Dioxide 24 mmol/L (22.0-30.0); Chloride 91 mmol/L (98-107); Creatinine Clearance Estimated 48 mL/min (50-200); Estimated Glomerular Filt Rate 28 ml/min (>60); GFR (African American) 34 ML/MIN (>60); Globulin 3.4 g/dL (1.3-3.2); Glucose 236 mg/dl (74-100); Magnesium 2.1 mg/dl (1.6-2.3); Potassium 4.2 mmoL/L (3.5-5.1); Sodium 131 mmol/L (136-145); Total Protein,Serum 7.5 g/dl (6.3-8.2)
[2022-07-26 17:52] LABS: NT Pro Brain Natriuretic Pep. 7170 pg/mL (0-125)
[2022-07-26 17:53] LABS: Troponin I < 0.01 ng/ml (0.00-0.034)
--- NOTE | 2022-07-26 18:02 | PC.NURSE ---
speaking with hospitalist
[2022-07-26 18:07] LABS: Coronavirus 19, PCR Not Detected (NotDetected); Influenza A, PCR Not Detected (NotDetected); Influenza B, PCR Not Detected (NotDetected)
--- NOTE | 2022-07-26 18:20 | PC.NURSE ---
updated pt on admission room number, pt states no needs at this time
--- NOTE | 2022-07-26 18:43 | PC.NURSE ---
report called to LETI Jauregui
--- NOTE | 2022-07-26 19:04 | EXP.HP ---
History of Present Illness *Admission Date: 07/26/22 *Reason for visit:: Chief complaint: Shortness of air *History of present illness: This is a 61-year-old female that presents to [facility] emergency department with concerns of shortness of air over the past week. She reports seeing her PCP in the outpatient setting and received steroids and an antibiotic with no improvement in her shortness of air. She reports her shortness of air gets worse with exertion. She describes a nonproductive cough. She reports no associated hemoptysis. She continues to smoke cigarettes but did not smoke today secondary to her dyspnea. Her past medical history significant for COPD on home O2 2 L with ongoing tobacco dependence, heart failure with reduced ejection fraction EF 30%, atrial fibrillation on chronic anticoagulation, peripheral vascular disease with previous carotid and renal stents, diabetes, ADRIANA with CPAP therapy. In the ED her chest x-ray identifies no acute disease and her BNP is 7170. Her lactic acid is normal and her creatinine is 1.8 with a baseline 1.1. Her presenting oxygen saturations of 87% on room air improved with supplemental oxygen. [facility] Medical History Abnormal EKG Abnormal stress test Atypical angina Breast cancer Cardiac murmur Cardiomyopathy Chronic a-fib Congestive heart failure COPD (chronic obstructive pulmonary disease) Diabetes mellitus Diabetes mellitus, type 2 Diastolic dysfunction Ex-smoker Fatigue History of COVID-19 History of gastroesophageal reflux (GERD) History of left heart catheterization (LHC) HTN (hypertension) IDDM (insulin dependent diabetes mellitus) Left carotid bruit Migraine Neuropathic pain Neuropathy ADRIANA (obstructive sleep apnea) Sleep apnea Tachycardia induced cardiomyopathy Tobacco dependence syndrome Surgical History History of right heart catheterization (RHC) History of tonsillectomy Tubal ligation status Family History Other Family history of COPD (chronic obstructive pulmonary disease) Family history of GERD Family history of cancer Family history of diabetes mellitus type II Family history of hyperlipidemia Family history of hypertension Family history of migraine headaches Family history of myocardial infarction Family history of stroke Social History Smoking Status: Current every day smoker tobacco type: cigarettes packs per day: 1 second hand exposure: No alcohol intake: never counseling provided: none substance use type: marijuana current occupational status: retired, disabled and other Travel in the last 8 weeks: None household members: family and children housing: house current occupational exposures/hazards: No caffeine: No Review of Systems Constitutional Constitutional: Reports lethargy, Reports malaise and Reports weakness ENT Ears, Nose, Mouth, and Throat: Denies dizziness and Reports nasal congestion *Cardiovascular Cardiovascular: Denies chest pain, Denies chest pain at rest, Reports dyspnea and Reports dyspnea on exertion *Respiratory Respiratory: Reports cough, Reports dyspnea, Reports dyspnea on exertion and Denies hemoptysis *Gastrointestinal Gastrointestinal: Denies hematemesis, Denies loose stools, Reports nausea and Denies vomiting *Neurologic Neurologic: Denies dizziness and Reports weakness Meds Home Medications and Allergies Home Medications Medication Instructions Recorded Confirmed Type albuterol sulfate 90 mcg/actuation 2 puff inhalation Q6HP PRN 01/03/22 07/24/22 History aerosol inhaler (ProAir HFA) Shortness Of Breath pantoprazole 40 mg tablet,delayed 40 mg PO DAILY GERD 01/03/22 07/24/22 History release clopidogrel 75 mg tablet 75 mg PO DAILY platelet inhibitor 03/16/22 0
--- NOTE | 2022-07-26 19:41 | CT_ITS ---
PROCEDURE INFORMATION: Exam: CT Chest Without Contrast; Diagnostic Exam date and time: 07/26/2022 8:11 PM Age: 61 years old Clinical indication: Other: Hypoxia, smoker; Prior surgery; Surgery date: 6+ months; Surgery type: Cardiac stents; Patient HX: Hypoxia, shortness of breath. Smoker. TECHNIQUE: Imaging protocol: Diagnostic computed tomography of the chest without contrast. Radiation optimization: All CT scans at this facility use at least one of these dose optimization techniques: automated exposure control; mA and/or kV adjustment per patient size (includes targeted exams where dose is matched to clinical indication); or iterative reconstruction. REPORTING DATA: Count of CT and Cardiac NM exams in prior 12 months: This patient has received 2 known CTs and 0 known cardiac nuclear medicine studies in the 12 months prior to the current study. COMPARISON: CR XR CHEST PORTABLE 07/26/2022 5:21 PM FINDINGS: Lungs: Emphysema. Several small calcified pulmonary granulomas. Streaky opacity within right middle lobe. 14 mm subpleural nodule at the lateral right lung apex. Pleural spaces: No pneumothorax. No pleural effusion. Heart: Cardiomegaly. Coronary arteries: Coronary artery calcifications. Lymph nodes: No enlarged lymph nodes. Vasculature: PE can not be excluded without IV contrast. Calcified aortic atherosclerosis. No aneurysm. Kidneys and ureters: 2.5 cm low-density right renal lesion which is incompletely evaluated without contrast. Bones/joints: No acute fracture. Soft tissues: Limited evaluation without contrast. No obvious soft tissue swelling. IMPRESSION: 1. PE can not be excluded without IV contrast. 2. Emphysema. 3. Streaky opacity within right middle lobe which may be hypoventilatory however pneumonitis should be clinically excluded. 4. 14 mm nodule the peripheral right lung apex which may be secondary to scarring however short-term follow-up imaging is recommended. For patients at high risk (history of smoking or of other known risk factors), recommend CT Chest at 3-6 months. (Reference: Rowdy) References: Rowdy Sanz et al. Guidelines for Management of Incidental Pulmonary Nodules Detected on CT Images: From the Fleischner Society 2017. Radiology. 2017;284(1):228-243.
--- NOTE | 2022-07-26 19:47 | PC.NURSE ---
Pt arrived to floor via stretcher @ 191
[2022-07-26 20:38] LABS: Troponin I < 0.01 ng/ml (0.00-0.034)
[2022-07-26 20:58] LABS: POC Glucose,Bedside 312 (70-110)
[2022-07-27] VITALS (10 sets, daily range): BP systolic 120–161; BP diastolic 53–93; PULSE 68–81; RESP 17–18; TEMP 36.4–37.1; O2SAT 89–99; BMI 32.4; BMI 32.3
[2022-07-27 01:19] LABS: Troponin I < 0.01 ng/ml (0.00-0.034)
[2022-07-27 06:05] LABS: POC Glucose,Bedside 320 (70-110)
[2022-07-27 06:47] LABS: Basophils % 0.2 % (0.1-2.0); Eosinophils # 0.1 K/mm3 (0.0-0.4); Eosinophils % 0.8 % (0.1-12.0); Hematocrit 45.5 % (37.0-47.0); Hemoglobin 14.4 g/dL (12.2-16.2); Lymphocytes # 1.2 K/mm3 (0.7-4.5); Lymphocytes % 14.3 % (10-50); Mean Corpuscular HGB Conc 31.6 g/dL (31.8-35.4); Mean Corpuscular Hemoglobin 26.9 pg (27.0-31.2); Mean Corpuscular Volume 85.1 fl (81-99); Mean Platelet Volume 7.7 fl (7.4-10.4); Monocytes # 0.2 K/mm3 (0.1-1.0); Monocytes % 1.8 % (1.7-9.3); Neutrophils # 6.8 K/mm3 (1.8-7.8); Neutrophils % 82.9 % (37.0-80.0); Platelet Count 255 K/mm3 (142-424); Red Blood Count 5.34 M/mm3 (4.20-5.40); Red Cell Distribution Width 18.9 % (11.5-17.5); White Blood Count 8.2 K/mm3 (4.8-10.8)
[2022-07-27 06:57] LABS: Anion Gap 19.6 mEq/L (5-15); Blood Urea Nitrogen 45 mg/dl (7-17); Calcium 8.9 mg/dl (8.4-10.2); Carbon Dioxide 24 mmol/L (22.0-30.0); Chloride 94 mmol/L (98-107); Creatinine Clearance Estimated 52 mL/min (50-200); Estimated Glomerular Filt Rate 33 ml/min (>60); GFR (African American) 39 ML/MIN (>60); Glucose 342 mg/dl (74-100); Potassium 4.6 mmoL/L (3.5-5.1); Sodium 133 mmol/L (136-145)
[2022-07-27 07:14] LABS: Procalcitonin 0.051 ng/mL (0.0-2.0)
[2022-07-27 07:46] LABS: Hemoglobin A1C 9.6 % (4.0-6.0)
--- NOTE | 2022-07-27 09:46 | HMH.PHAINT1 ---
Pharmacy Intervention Comments: HOME MEDICATION LIST VERIFIED USING LIST FROM OUTPATIENT PHARMACY AND PT INTERVIEW
--- NOTE | 2022-07-27 10:51 | HMH.PTEV ---
Physical Therapy Evaluation Rehab PT IP Evaluation Start: 07/27/22 10:07 Freq: ONCE Status: Active Protocol: Document 07/27/22 10:43 PRASANNA (Rec: 07/27/22 10:50 PRASANNA [id number]) Subjective/History History History Pt is a 61 year old female that presented to [facility] ED on 01/2023 with concerns of shortness of air over the past week. Pt reports seeing her PCP in the outpatient setting and received steroids and an antibiotic with no improvement in her shortness of air. Pt reports she has a nonproductive cough and that her dyspnea worsens with exertion. PMH: COPD on home O2 2 L with ongoing tobacco dependence, heart failure with reduced ejection fraction EF 30%, atrial fibrillation on chronic anticoagulation, peripheral vascular disease with previous carotid and renal stents, diabetes, ADRIANA with CPAP therapy. In the ED her chest x-ray identifies no acute disease and her BNP is 7170. Her lactic acid is normal and her creatinine is 1 .8 with a baseline 1.1. Her presenting oxygen saturations of 87% on room air improved with supplemental oxygen. Pt lives at home alone is a [address] with [facility]. At baseline, pt uses a RW or a cane for ambulation depending on her low back pain. Pt reports that her son lives very close by and her daughter is at her house daily to assist with cooking/cleaning. Subjective Subjective Pt presents seated in bedside chair, pleasant and agreeable to therapy evaluation. Pt denies reports of pain at rest . Rehab PT IP Eval Objective Appearance Patient Behavior Appropriate Patient Orientation Person,Place,Name,Situat
--- NOTE | 2022-07-27 10:51 | EXP.PN ---
Subjective *Date: 07/27/22 *Time: 10:51 Interval history: Date of service July 27, 2022 The patient reports no acute events overnight. Nursing staff report that she remains afebrile with improved heart rates, respiratory rates and stable blood pressures. She is saturating appropriately on 2 to 3 L oxygen via nasal cannula. PT and OT have evaluated the patient and identified good ambulation with minimal assist. The patient is tolerating her therapy with no adverse events. We have reviewed, discussed and I have personally interpreted her labs and imaging as follows: Her CBC identifies an improved and resolved leukocytoses with stable hemoglobin and platelets. Her electrolytes are normal and her creatinine identifies a downward trend to 1.[address] scan of her chest identifies emphysema with right middle lobe pneumonia. Exam Data for Last 24 hours Vital signs and Labs for Last 24 Hours: Temp Pulse Resp BP Pulse Ox 98.8 F 74 18 143/80 H 92 L 07/27/22 07:36 07/27/22 07:36 07/27/22 07:36 07/27/22 07:36 07/27/22 07:36 Laboratory Results - last 24 hr 07/26/22 17:10: WBC 11.6 H, RBC 5.56 H, Hgb 15.1, Hct 47.6 H, MCV 85.7, MCH 27.1, MCHC 31.7 L, RDW 18.8 H, Plt Count 258, MPV 7.5, Neut % (Auto) 80.3 H, Lymph % (Auto) 15.5, Archer % (Auto) 3.7, Eos % (Auto) 0.3, Baso % (Auto) 0.2, Neut # (Auto) 9.3 H, Lymph # (Auto) 1.8, Archer # (Auto) 0.4, Eos # (Auto) 0.0, Baso # (Auto) 0.0 07/26/22 17:10: Sodium 131 L, Potassium 4.2, Chloride 91 L, Carbon Dioxide 24, Anion Gap 20.2 H, BUN 38 H, Creatinine 1.80 H, Estimated Creat Clear 48, Estimated GFR 28 L, Est GFR ( Amer) 34 L, Glucose 236 H, Calcium 9.3, Magnesium 2.1, Total Bilirubin 0.9, AST 28, ALT 26, Alkaline Phosphatase 147 H, Troponin I < 0.01, NT-Pro-B Natriuret Pep 7170 H, Total Protein 7.5, Albumin 4.1, Globulin 3.4 H, Albumin/Globulin Ratio 1.2 07/26/22 17:10: Lactate 1.0 07/26/22 17:40: SARS-CoV-2 (PCR) Not detected, Influenza A Untype (PCR) Not detected, Influenza Type B (PCR) Not detected 07/26/22 20:10: Troponin I < 0.01 07/26/22 20:36: POC Glucose 312 H* 07/26/22 23:52: Troponin I < 0.01 07/27/22 05:58: POC Glucose 320 H* 07/27/22 06:35: WBC 8.2 D, RBC 5.34, Hgb 14.4, Hct 45.5, MCV 85.1, MCH 26.9 L, MCHC 31.6 L, RDW 18.9 H, Plt Count 255, MPV 7.7, Neut % (Auto) 82.9 H, Lymph % (Auto) 14.3, Archer % (Auto) 1.8, Eos % (Auto) 0.8, Baso % (Auto) 0.2, Neut # (Auto) 6.8, Lymph # (Auto) 1.2, Archer # (Auto) 0.2, Eos # (Auto) 0.1, Baso # (Auto) 0.0 07/27/22 06:35: Sodium 133 L, Potassium 4.6, Chloride 94 L, Carbon Dioxide 24, Anion Gap 19.6 H, BUN 45 H, Creatinine 1.60 H, Estimated Creat Clear 52, Estimated GFR 33 L, Est GFR ( Amer) 39 L, Glucose 342 H D, Calcium 8.9, Procalcitonin 0.051 07/27/22 06:35: Hemoglobin A1c 9.6 H I & O for Last 24 hours: Intake & Output 07/24/22 07/25/22 07/26/22 07/27/22 23:59 23:59 23:59 23:59 Intake Total 360 / 360 Output Total 750 / 750 2400 / 2400 Balance -750 / -750 -2039 / -2039 Weight 91.49 kg 91.49 kg Constitutional Constitutional: no acute distress *Routine HEENT Exam Head: Present normocephalic Eye: Present EOMI and PERRL ENT: Present mucous membranes moist *Routine Neck Exam Neck: Present supple; Absent lymphadenopathy *Routine Respiratory Exam Respiratory: Present rhonchi, normal respiratory effort and symmetric chest movement *Routine Cardiovascular Exam Cardiovascular: Present RRR *Routine Abdominal Exam Abdominal: Present soft and normoactive bowel sounds; Absent tenderness *Routine Extremities Exam Extremities: Absent cyanosis, clubbing or edema *Routine Skin Exam Skin: Present warm; Absent rash *Routine Neurological Exam Neurological: Present alert and oriented X3 Assessment and Plan *Assessment and plan (1) Acute on chronic HFrEF (heart failure with reduced ejection fraction): Status: Acute Category: Medical Code(s): I50.23 - Acute on chronic systolic (congestive) heart failure (2) Acu
--- NOTE | 2022-07-27 10:53 | HMH.OTEV ---
OT Inpatient Evaluation Rehab OT IP Evaluation Start: 07/27/22 10:08 Freq: ONCE Status: Active Protocol: Document 07/27/22 10:49 [facility] (Rec: 07/27/22 10:53 [facility] [id number]) Rehab OT IP Assessment Subjective History Pt oriented x 3 on arrival. Pt agreeable to engage in therapy evaluation. Pt was admitted on 07/26/22 due to COPD. Prior to being in the hospital, pt lived at home alone. Pt claimed she was independent with all ADLs such as dressing, bathing, and feeding. She was able to complete simple IADLs such as washing dishes and laundry. However, she had family complete grocery shopping and cleaning of her home. She does use a walker or cane at times. Her family is there daily to check on her and assist as needed. Pt has a past medical history of: Abnormal EKG Abnormal stress test Atypical angina Breast cancer Cardiac murmur Cardiomyopathy Chronic a-fib Congestive heart failure COPD (chronic obstructive pulmonary disease) Diabetes mellitus Diabetes mellitus, type 2 Diastolic dysfunction Ex-smoker Fatigue History of COVID-19 History of gastroesophageal reflux (GERD) History of left heart catheterization (LHC) HTN (hypertension) IDDM (insulin dependent diabetes mellitus) Left carotid bruit Migraine Neuropathic pain Neuropathy ADRIANA (obstructive sleep apnea) Sleep apnea
[2022-07-27 12:11] LABS: POC Glucose,Bedside 393 (70-110)
[2022-07-27 17:24] LABS: POC Glucose,Bedside 379 (70-110)
[2022-07-27 21:49] LABS: POC Glucose,Bedside 285 (70-110)
--- NOTE | 2022-07-27 23:31 | PC.NURSE ---
THIS RN LOOKED FOR PT'S NYSTATIN POWDER IN PT'S ROOM, IN LOCKED MED DRAWERS IN PT'S ROOM AND IN THE [facility]. PT'S NYSTATIN POWDER COULD NOT BE FOUND.
[2022-07-28] VITALS: BP 121/55; PULSE 70; RESP 18; TEMP 36.6; O2SAT 98
[2022-07-28 04:00] VITALS: BP 119/76; PULSE 70; RESP 19; TEMP 36.4; O2SAT 96; BMI 33.3
--- NOTE | 2022-07-28 05:05 | PC.NURSE ---
NO ACUTE CHANGES THIS SHIFT. AMBULATING INDEPENDENTLY. VSS. O2 IS STABLE ON 2L NASAL CANNULA. PT C/O A SORE THROAT AT THE BEGINNING OF THE SHIFT. PT GIVEN HOT TEA AND PT STATED THAT IT HELPED. NO OTHER COMPLAINTS THIS SHIFT. CALL YI WITHIN REACH.
[2022-07-28 06:01] VITALS: PULSE 72; O2SAT 97
[2022-07-28 06:12] LABS: POC Glucose,Bedside 238 (70-110)
[2022-07-28 07:35] LABS: Basophils # 0.1 K/mm3 (0-0.2); Basophils % 0.6 % (0.1-2.0); Eosinophils % 0.2 % (0.1-12.0); Hematocrit 46.1 % (37.0-47.0); Lymphocytes # 1.3 K/mm3 (0.7-4.5); Lymphocytes % 14.6 % (10-50); Mean Corpuscular HGB Conc 30.3 g/dL (31.8-35.4); Mean Corpuscular Hemoglobin 27.6 pg (27.0-31.2); Mean Corpuscular Volume 91.1 fl (81-99); Mean Platelet Volume 8.3 fl (7.4-10.4); Monocytes # 0.5 K/mm3 (0.1-1.0); Monocytes % 5.1 % (1.7-9.3); Neutrophils # 7.3 K/mm3 (1.8-7.8); Neutrophils % 79.5 % (37.0-80.0); Platelet Count 210 K/mm3 (142-424); Red Blood Count 5.06 M/mm3 (4.20-5.40); Red Cell Distribution Width 18.8 % (11.5-17.5); White Blood Count 9.1 K/mm3 (4.8-10.8)
[2022-07-28 07:47] VITALS: BP 123/79; PULSE 73; RESP 18; TEMP 36.4; O2SAT 94
--- NOTE | 2022-07-28 07:59 | EXP.DC.SUM ---
General Admission date:: 07/26/22 Discharge date: 07/28/22 HPI HPI HPI: This is a 61-year-old female that presents to [facility] emergency department with concerns of shortness of air over the past week. She reports seeing her PCP in the outpatient setting and received steroids and an antibiotic with no improvement in her shortness of air. She reports her shortness of air gets worse with exertion. She describes a nonproductive cough. She reports no associated hemoptysis. She continues to smoke cigarettes but did not smoke today secondary to her dyspnea. Her past medical history significant for COPD on home O2 2 L with ongoing tobacco dependence, heart failure with reduced ejection fraction EF 30%, atrial fibrillation on chronic anticoagulation, peripheral vascular disease with previous carotid and renal stents, diabetes, ADRIANA with CPAP therapy. In the ED her chest x-ray identifies no acute disease and her BNP is 7170. Her lactic acid is normal and her creatinine is 1.8 with a baseline 1.1. Her presenting oxygen saturations of 87% on room air improved with supplemental oxygen. Hospital Course Hospital Course Hospital Course: The patient is admitted to the medical floor with routine pulse oximetry monitoring and oxygen supplementation. She is provided nicotine replacement therapy for her chronic tobacco dependence history. Her previous echocardiogram in March identified an ejection fraction of 30% and her acute kidney injury precluded restarting her ACC guided directed therapy. She was maintained on a reduced dose loop diuretic and beta-azul therapy and low-dose ARB therapy. Her SGLT2 inhibitor therapy was held. Her aldosterone antagonist therapy was held. A repeat echocardiogram was requested and report pending at time of discharge. She was treated with steroids and antibiotic therapy for acute exacerbation of her chronic hypoxic respiratory failure. Her oxygen requirements diminished to her usual home baseline of 2 L of O2 per nasal cannula. Her acute kidney injury improved. Her atrial fibrillation remained controlled and she tolerated her factor Xa inhibitor therapy dosed for her renal function with no complaints of acute dyspnea, hemoptysis or chest pain. Her hemoglobin A1c came back at 9.6% identifying uncontrolled diabetes. The patient voiced understanding on the importance of complete tobacco cessation use, routine blood pressure and blood sugar monitoring. She identified improvement and inquired about discharge home. She is advised to follow-up with her PCP in 1 week and geotechnical intern as scheduled. We requested a pulmonology follow-up and she has been scheduled with our local food safety specialist on discharge. I spent 35 minutes in [id number] time with the patient and nursing staff concerning the discharge process. We discussed the admitting diagnoses and hospital course. We discussed identified improvement and the patient's desire to be discharged. We reviewed inpatient studies and imaging. The patient voiced understanding on the importance of follow-up with her primary care provider and specialist(s). The patient plans to be compliant with the medication regimen prescribed and follow-up appointments. She understands that she can return to the emergency department with any sudden changes or concerns. Exam Data for Last 24 hours Vital signs and Labs for Last 24 Hours: Temp Pulse Resp BP Pulse Ox 97.6 F 73 18 123/79 94 L 07/28/22 07:47 07/28/22 07:47 07/28/22 07:47 07/28/22 07:47 07/28/22 07:47 Laboratory Results - last 24 hr 07/27/22 11:30: POC Glucose 393 H* 07/27/22 16:20: POC Glucose 379 H* 07/27/22 20:13: POC Glucose 285 H 07/28/22 05:35: POC Glucose 238 H I & O for Last 24 hours: Intake & Output 07/25/22 07/26/22 07/27/22 07/28/22 23:59 23:59 23:59 23:59 Intake Total 840 / 840 480 / 480 Output Total 750 / 750 2400 / 2400 0 / 0 Balance -750 / -750 -1560 / -1560 480 / 480 W
[2022-07-28 08:04] LABS: Anion Gap 20.6 mEq/L (5-15); Blood Urea Nitrogen 53 mg/dl (7-17); Calcium 9.1 mg/dl (8.4-10.2); Carbon Dioxide 23 mmol/L (22.0-30.0); Chloride 94 mmol/L (98-107); Creatinine Clearance Estimated 50 mL/min (50-200); Estimated Glomerular Filt Rate 30 ml/min (>60); GFR (African American) 37 ML/MIN (>60); Glucose 271 mg/dl (74-100); Potassium 4.6 mmoL/L (3.5-5.1); Sodium 133 mmol/L (136-145)
[2022-07-28 08:57] LABS: NT Pro Brain Natriuretic Pep. 3900 pg/mL (0-125)
[2022-07-28 11:17] LABS: POC Glucose,Bedside 375 (70-110)
--- NOTE | 2022-07-30 14:12 | CARE MANAGER ---
Left message for discharge follow-up phone call.
--- NOTE | 2022-07-31 15:55 | CARE MANAGER ---
Attempted to call patient x 2 and left VM. Unable to reach patient to discuss recent discharge.
== END 2022-07-28 12:20 | disposition home or self-care (01) | DRG 291 ==
LOC: ER 18:06 → 2ND 18:22
PROVIDERS: Admitting Provider Family Medicine; Emergency Provider Emergency Medicine; PCP Nurse Practitioner Family; Visit Provider Family Medicine
DX: I11.0 Hypertensive heart disease with heart failure (principal); I50.23 Acute on chronic systolic (congestive) heart failure; J96.21 Acute and chronic respiratory failure with hypoxia; J44.1 Chronic obstructive pulmonary disease with (acute) exacerbation; I48.20 Chronic atrial fibrillation, unspecified; N17.9 Acute kidney failure, unspecified; I42.9 Cardiomyopathy, unspecified; G47.33 Obstructive sleep apnea (adult) (pediatric); Z87.891 Personal history of nicotine dependence; Z85.3 Personal history of malignant neoplasm of breast; F17.210 Nicotine dependence, cigarettes, uncomplicated; E11.65 Type 2 diabetes mellitus with hyperglycemia; E11.51 Type 2 diabetes mellitus with diabetic peripheral angiopathy without gangrene; Z79.4 Long term (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
CPT/HCPCS: 36415; 71045; 71250; 80048; 80053; 82962; 83036; 83605; 83735; 83880; 84145; 84484; 85025; 87040; 93005; 93308; 94640; 94760; 97161; 97165; 99285; C9803; J0456; U0003; U0005

== ENCOUNTER → 2022-08-29 15:49 | Outpatient (CLI) | payer MEDICAID, SELFPAY ==
--- NOTE | 2022-08-29 15:51 | XR_ITS ---
FINAL REPORT CLINICAL HISTORY: DX W PNEUMONIA X 3 DAYS AGO, C/O SOA/COUGH. SMOKER, HX ASTHMA, EMPHYSEMA, COPD, BREAST CANCER. COMPARISON: 07/26/2022 FINDINGS: Two views of the chest were obtained. The heart size and pulmonary vascularity are within normal limits. The mediastinum is normal. No acute pulmonary abnormality is identified. There is no pneumothorax. Postoperative changes in the right upper thorax. IMPRESSION: No active cardiopulmonary disease. Reviewed, Interpreted and Dictated by Osman Sheikh III, MD Transcribed by Gisel Dillard Authenticated and [facility]
== END ==
PROVIDERS: PCP Nurse Practitioner Family; Visit Provider Physician Assistant
DX: R05.9 Cough, unspecified (principal); I42.8 Other cardiomyopathies; I48.20 Chronic atrial fibrillation, unspecified; I25.118 Atherosclerotic heart disease of native coronary artery with other forms of angina pectoris; I10 Essential (primary) hypertension; I65.23 Occlusion and stenosis of bilateral carotid arteries; I70.1 Atherosclerosis of renal artery; I73.9 Peripheral vascular disease, unspecified; J44.9 Chronic obstructive pulmonary disease, unspecified; G47.33 Obstructive sleep apnea (adult) (pediatric)
CPT/HCPCS: 71046

== ENCOUNTER → 2022-09-05 15:12 | Outpatient (CLI) | payer MEDICAID, SELFPAY | PROVIDERS: PCP Nurse Practitioner Family; Visit Provider Nurse Practitioner Family | DX: R06.09 Other forms of dyspnea (principal) | CPT/HCPCS: 94060; 94726; 94729 ==

== ENCOUNTER 2023-08-27 21:08 | Emergency (ER) | payer MEDICAID, SELFPAY ==
[2023-08-27 21:09] VITALS: BP 114/69; PULSE 102; RESP 18; TEMP 36.7; O2SAT 96; BMI 33.9
--- NOTE | 2023-08-27 21:27 | XR_ITS ---
PROCEDURE INFORMATION: Exam: XR Chest Exam date and time: 08/27/2023 9:30 PM Age: 62 years old Clinical indication: Cough; Additional info: Cough chest congestion TECHNIQUE: Imaging protocol: Radiologic exam of the chest. Views: 2 views. COMPARISON: CR XR CHEST 2V 08/29/2022 4:01 PM FINDINGS: Lungs: Mild scarring at the right lung apex is unchanged. Unchanged left lower lobe calcified granulomas. No consolidation. Pleural spaces: Normal. No pleural effusion. No pneumothorax. Heart/Mediastinum: Normal. No cardiomegaly. Vasculature: Atherosclerotic thoracic aorta. Bones/joints: Unremarkable. Soft tissues: Surgical clips in the right chest wall. IMPRESSION: No acute findings.
--- NOTE | 2023-08-27 21:32 | ED_ITS ---
Discharge Plan Disposition Patient Disposition: Home, Self-Care Prescriptions Prescriptions: New prednisone 20 mg tablet 40 mg PO DAILY 4 Days Qty: 8 0RF azithromycin [Zithromax Z-Benny] 250 mg tablet 250 mg PO DAILY 4 Days Qty: 4 0RF Rx Instructions: start on day 2 of therapy [id number] [Bromfed DM] 2-30-10 mg/5 mL syrup 5 ml PO Q6H PRN (Reason: cold symptoms) Qty: 118 0RF No Action pantoprazole 40 mg tablet,delayed release (DR/EC) 40 mg PO DAILY Qty: 90 1RF Humulin 70/30 U-100 KwikPen 100 unit/mL (70-30) insulin pen See Rx Instructions .ROUTE .COMPLEX Qty: 15 5RF Dose Instruction: inject 28 UNITS SUBCUTANEOUSLY TWICE DAILY FOR diabetes Rx Instructions: inject 18 UNITS SUBCUTANEOUSLY TWICE DAILY FOR diabetes insulin glargine [Lantus Solostar U-100 Insulin] 100 unit/mL (3 mL) insulin pen 10 unit SQ HS Qty: 15 2RF (DME) Dexcom G7 Sensor Device See Rx Instructions .Route Qty: 1 3RF Rx Instructions: As directed (DME) 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 Construction Craft Laborer Misc See Rx Instructions .Route Qty: 1 3RF Rx Instructions: As directed clonazepam 0.5 mg tablet 0.5 mg PO DAILY PRN (Reason: agitation) Qty: 30 2RF albuterol sulfate [ProAir HFA] 90 mcg/actuation HFA aerosol inhaler 2 puff inhalation Q6HP PRN (Reason: Shortness Of Breath) Qty: 8.5 3RF fluticasone propionate 50 mcg/actuation spray,suspension 1 spray intranasal DAILY Qty: 16 12RF Rx Instructions: instill 1 SPRAY IN EACH NOSTRIL EVERY DAY fluticasone propion-salmeterol [Advair HFA] 45-21 mcg/actuation HFA aerosol inhaler See Rx Instructions .ROUTE .COMPLEX Qty: 12 2RF Dose Instruction: INHALE TWO PUFFS BY MOUTH TWICE DAILY --RINSE MOUTH AFTER USE-- Rx Instructions: INHALE TWO PUFFS BY MOUTH TWICE DAILY --RINSE MOUTH AFTER USE-- metoprolol tartrate 100 mg tablet 300 mg PO BID 90 Days Qty: 540 1RF clopidogrel 75 mg tablet See Rx Instructions .ROUTE .COMPLEX Qty: 90 4RF Dose Instruction: TAKE ONE TABLET BY MOUTH EVERY DAY Rx Instructions: TAKE ONE TABLET BY MOUTH EVERY DAY spironolactone 25 mg tablet See Rx Instructions .ROUTE .COMPLEX Qty: 90 1RF Dose Instruction: TAKE ONE TABLET BY MOUTH EVERY DAY Rx Instructions: TAKE ONE TABLET BY MOUTH EVERY DAY Xarelto 15 mg tablet See Rx Instructions .ROUTE .COMPLEX Qty: 90 1RF Dose Instruction: TAKE ONE TABLET BY MOUTH EVERY DAY Rx Instructions: TAKE ONE TABLET BY MOUTH EVERY DAY (DME) pen needle, diabetic [BD Ultra-Fine Becka Pen Needle] 32 gauge x needle See Rx Instructions .ROUTE .COMPLEX Qty: 100 2RF Dose Instruction: USE DIRECTED with insulin injections Rx Instructions: USE DIRECTED or BID with insulin injections Farxiga 10 mg tablet See Rx Instructions .ROUTE .COMPLEX Qty: 90 1RF Dose Instruction: TAKE ONE TABLET BY MOUTH EVERY DAY Rx Instructions: TAKE ONE TABLET BY MOUTH EVERY DAY valsartan 40 mg tablet See Rx Instructions .ROUTE .COMPLEX Qty: 90 1RF Dose Instruction: TAKE ONE TABLET BY MOUTH EVERY DAY Rx Instructions: TAKE ONE TABLET BY MOUTH EVERY DAY cyclobenzaprine 10 mg tablet See Rx Instructions .ROUTE .COMPLEX Qty: 60 1RF Dose Instruction: TAKE ONE TABLET BY MOUTH EVERY 8 HOURS MAY CAUSE DROWSINESS Rx Instructions: TAKE ONE TABLET BY MOUTH EVERY 8 HOURS MAY CAUSE DROWSINESS bumetanide 1 mg tablet See Rx Instructions .ROUTE .COMPLEX Qty: 60 1RF Dose Instruction: TAKE ONE TABLET BY MOUTH TWICE DAILY Rx Instructions: TAKE ONE TABLET BY MOUTH TWICE DAILY atorvastatin 80 mg tablet See Rx Instructions .ROUTE .COMPLEX Qty: 30 5RF Dose Instruction: TAKE ONE TABLET BY MOUTH EVERY DAY Rx Instructions: TAKE ONE TABLET BY MOUTH EVERY DAY loratadine 10 mg tablet See Rx Instructions .ROUTE .COMPLEX Qty: 30 5RF Dose Instruction: TAKE ONE TABLET BY MOUTH EVERY DAY FOR ALLERGY symptoms Rx Instructions: TAKE ONE TABLET BY MOUTH EVERY DAY FOR ALLERGY symptoms metoclopramide HCl [Reglan] 10 mg tablet 10 mg PO DAILY PRN (Reason: Nausea) Referrals Follow up/Referrals: Nickolas Matthew APRN [Primary Care Provider] - See instructions Activity Restrictions/Add. Instructions Additional Instructions/Restrictions: At this time it was felt you are safe to be discharged home. If new or worsening symptoms please do not hesitate to return the emergency department. If symptoms persist please follow-up with your family doctor as you are able. Please take your medications as prescribed and use your breathing machine at home as discussed. Clinical Impressions Clinical Impression: Acute exacerbation of chronic obstructive pulmonary disease Discharge ED Provider: Spencer Small General Adult HPI General Chief complaint: Upper Respiratory Infection Stated complaint: SOA, cough, runny nose Time Seen by Provider: 08/27/23 21:12 Mode of Arrival: Ambulatory Source of Information: Patient Limitations: No Limitations Description of Symptoms (Recalled from ER Triage Doc. by RN): pt c/o cough,congestion, body aches, fever x 3 days History of Present Illness HPI narrative: Patient is a 62-year-old female past medical history of COPD not on nasal cannula who presents emergency department for multiple complaints. Patient has had cough, congestion, runny nose, body aches over the last 3 days. No chest pain. No abdominal pain. Due to persistent symptoms she presents here for con tinued evaluation. Related Data Home Medications Medication Instructions Recorded Confirmed metoclopramide HCl 10 mg tablet 10 mg PO DAILY PRN Nausea 07/27/22 07/17/23 (Reglan) Previous Rx's Medication Instructions Recorded fluticasone propionate 50 1 spray intranasal DAILY Allergy 09/19/22 mcg/actuation nasal symptoms #16 grams spray,suspension Advair HFA 45 mcg-21 mcg/actuation See Rx Instructions .Route 12/12/22 aerosol inhaler (fluticasone .COMPLEX #12 grams propion-salmeterol) pantoprazole 40 mg tablet,delayed 40 mg PO DAILY Acid reflux #90 tabs 03/01/23 release metoprolol tartrate 100 mg tablet 300 mg (3 x 100 mg) PO BID High 03/05/23 blood pressure 90 days #540 tabs clopidogrel 75 mg tablet See Rx Instructions .Route 04/15/23 .COMPLEX #90 tabs spironolactone 25 mg tablet See Rx Instructions .Route 04/16/23 .COMPLEX #90 tabs blood-glucose meter,continuous #1 ea 06/19/23 (Dexcom G7 Construction Craft Laborer) blood-glucose sensor (Dexcom G7 #1 ea 06/19/23 Sensor device) bumetanide 1 mg tablet See Rx Instructions .Route 06/19/23 .COMPLEX #60 tabs cyclobenzaprine 10 mg tablet See Rx Instructions .Route 06/19/23 .COMPLEX #60 tabs dapagliflozin propanediol 10 mg See Rx Instructions .Route 06/19/23 tablet (Farxiga) .COMPLEX #90 tabs insulin NPH-regular 70-30 U-100 See Rx Instructions .Route 06/19/23 insulin 100 unit/mL subcutaneous .COMPLEX #15 mL pen (Humulin 70/30 U-100 KwikPen) insulin glargine 100 unit/mL (3 10 unit (0.1 mL) SQ HS #15 mL 06/19/23 mL) subcutaneous pen (Lantus Solostar U-100 Insulin) pen needle, diabetic 32 gauge x #100 ea 06/19/23 (BD Ultra-Fine Becka Pen Needle) rivaroxaban 15 mg tablet (Xarelto) See Rx Instructions .Route 06/19/23 .COMPLEX #90 tabs valsartan 40 mg tablet See Rx Instructions .Route 06/19/23 .COMPLEX #90 tabs atorvastatin 80 mg tablet See Rx Instructions .Route 07/12/23 .COMPLEX #30 tabs albuterol sulfate 90 mcg/actuation 2 puff inhalation Q6HP PRN 07/17/23 aerosol inhaler (ProAir HFA) Shortness Of Breath #8.5 grams clonazepam 0.5 mg tablet 0.5 mg PO DAILY PRN agitation #30 07/17/23 tabs loratadine 10 mg tablet See Rx Instructions .Route 07/29/23 .COMPLEX #30 tabs azithromycin 250 mg tablet 250 mg PO DAILY COPD Exacerbation 08/27/23 (Zithromax Z-Benny) 4 days #4 tabs vrkkxevdrlabtgk-efpekohujzcnxzc-OU 5 ml PO Q6H PRN cold symptoms #118 08/27/23 2 mg-30 mg-10 mg/5 mL oral syrup mL (Bromfed DM) prednisone 20 mg tablet 40 mg (2 x 20 mg) PO DAILY 4 days 08/27/23 #8 tabs Allergies Allergy/AdvReac Type Severity Reaction Status Date / Time oxycodone [From PERCOCET] Allergy Unknown Unknown Verified 07/17/23 10:57 allergy reaction isosorbide [From Imdur] AdvReac Severe Headache Verified 07/17/23 10:57 [facility] Disclaimer: The information contained in this section may have been updated after the patient was seen, as this information can be updated by other users. Medical History (Updated 08/27/23 @ 21:32 by Spencer Small MD) Encounter for screening for malignant neoplasm of lung Lung nodule Smoking greater than 30 pack years COPD mixed type Dyspnea on exertion Chronic a-fib History of COVID-19 Sleep apnea Migraine History of gastroesophageal reflux (GERD) Diabetes mellitus, type 2 History of left heart catheterization (LHC) Breast cancer Cardiac murmur Atypical angina Abnormal stress test Neuropathic pain Cardiomyopathy Left carotid bruit Tobacco dependence syndrome ADRIANA (obstructive sleep apnea) Diastolic dysfunction Ex-smoker Abnormal EKG HTN (hypertension) Tachycardia induced cardiomyopathy Fatigue IDDM (insulin dependent diabetes mellitus) Neuropathy Congestive heart failure Diabetes mellitus Surgical History History of right heart catheterization (RHC) Tubal ligation status History of tonsillectomy Family History Other Family history of COPD (chronic obstructive pulmonary disease) Family history of GERD Family history of cancer Family history of diabetes mellitus type II Family history of hyperlipidemia Family history of hypertension Family history of migraine headaches Family history of myocardial infarction Family history of stroke Social History Smoking Status: Current every day smoker tobacco type: cigarettes packs per day: 1 second hand exposure: No alcohol intake: never counseling provided: none substance use type: marijuana current occupational status: retired, disabled and other Travel in the last 8 weeks: None household members: family and children housing: house current occupational exposures/hazards: No caffeine: No ROS Obtained: Yes Systems reviewed as appropriate & no additional complaints except as documented Physical Exam General General appearance: alert and in no apparent distress Head Head exam: atraumatic and normocephalic Eye Eye exam: Present PERRL ENT ENT exam: Present mucous membranes moist Neck Neck exam: Present normal inspection Chest Chest inspection: Present normal inspection and symmetric chest wall rise Respiratory Respiratory exam: Present wheezes (Expiratory phase wheezes right greater than the left); Absent respiratory distress Cardiovascular Cardiovascular exam: Present regular rate and normal rhythm Abdominal Exam Abdominal exam: Present soft; Absent tenderness Extremities Exam Extremities exam: Present normal inspection Neurological Exam Neurological exam: Present alert Psychiatric Psychiatric exam: Present normal affect Skin Skin exam: Present warm and dry Medical Decision Making Gianfranco Inquiry Pt receiving controlled substance: No Vital Signs: 08/27/23 21:09 Temperature 98.1 F Temperature Source Oral Pulse Rate [Right] 102 H Respiratory Rate 18 Blood Pressure [Right Arm] 114/69 Blood Pressure Mean [Right Arm] 84 02 Sat by Pulse Oximetry 96 Orders (Tests/Meds): ED MEDICATIONS Discontinued Medications Generic Name Dose Route Start Last Admin Trade Name Jj PRN Reason Stop Dose Admin Azithromycin 500 mg 08/27/23 21:30 08/27/23 21:46 Azithromycin 250mg Tablet PO 08/27/23 21:31 500 mg ONCE ONE Administration Prednisone 40 mg 08/27/23 21:30 08/27/23 21:46 Prednisone 20mg Tab PO 08/27/23 21:31 40 mg ONCE ONE Administration ORDERS Category Date Time Status Chest XR 2 view (NOT portable) [XR chest 2V] Stat Exams 08/27/23 21:27 Taken Medical Decision Narrative: In summary patient is a 62-year-old female past medical history described above who presents emergency department for evaluation of cough, congestion, body aches. Patient is hemodynamically stable nontoxic-appearing upon arrival, afebrile. Clinically patient is having a mild COPD exacerbation, saturating well on room air, no significant tachypnea however does have some expiratory phase wheezing but has recently used her breathing machine. Based on overall well-appearing differential includes pneumonia versus viral COPD exacerbation. Limited workup will be conducted with chest x-ray. Initial inventions include prednisone, azithromycin. X-ray informally interpreted by me, no dense lobar opacities or pneumothorax. Given this patient is appropriate for discharge at this time was given return precautions will be discharged with a course of steroids and azithromycin. Critical Care Critical Care Time Critical Care Time: No
[2023-08-27] MEDS: AZITHROMYCIN 250MG TABLET 500 MG PO (21:46)
[2023-08-27] MEDS: predniSONE 20MG TAB 40 MG PO (21:46)
[2023-08-27 22:01] VITALS: BP 144/70; PULSE 77; RESP 18; TEMP 36.7; O2SAT 95
== END 2023-08-27 22:02 | disposition home or self-care (01) ==
PROVIDERS: Emergency Provider Emergency Medicine; PCP Nurse Practitioner Family
DX: J44.1 Chronic obstructive pulmonary disease with (acute) exacerbation (principal); R06.02 Shortness of breath; R05.9 Cough, unspecified; R09.81 Nasal congestion; F17.210 Nicotine dependence, cigarettes, uncomplicated
CPT/HCPCS: 71046; 99283

== ENCOUNTER 2023-12-17 13:25 | Emergency (ER) | payer MEDICARE, MEDICAID, SELFPAY ==
[2023-12-17 13:40] VITALS: BP 113/95; PULSE 103; RESP 20; TEMP 36.5; O2SAT 94; BMI 34.0
--- NOTE | 2023-12-17 13:40 | ED_ITS ---
Discharge Plan Disposition Patient Disposition: Home, Self-Care Condition: Good Prescriptions Prescriptions: New prednisone 10 mg tablet 10 mg PO DIRECTED 9 Days Qty: 21 0RF Rx Instructions: Take 4 tablets daily for 3 days, then take 2 tablets daily for 3 days, then take 1 tablet daily for 3 days, then stop. benzonatate 100 mg capsule 100 mg PO TIDP PRN (Reason: Cough) Qty: 30 0RF amoxicillin-pot clavulanate 875-125 mg Tablet 1 tab PO Q12H Qty: 20 0RF No Action (DME) Dexcom G7 Medical Records Secretary Misc See Rx Instructions .Route Qty: 1 3RF Rx Instructions: As directed (DME) Dexcom G7 Sensor Device See Rx Instructions .ROUTE .COMPLEX Qty: 3 3RF Dose Instruction: USE DIRECTED TO TEST BLOOD GLUCOSE LEVEL CHANGE SENSOR EVERY 10 DAYS Rx Instructions: USE DIRECTED TO TEST BLOOD GLUCOSE LEVEL CHANGE SENSOR EVERY 10 DAYS (DME) pen needle, diabetic [BD Ultra-Fine Becka Pen Needle] 32 gauge x 5/32 needle See Rx Instructions .ROUTE .COMPLEX Qty: 100 4RF Dose Instruction: USE TWICE DAILY OR DIRECTED with insulin injections Rx Instructions: USE Tid OR DIRECTED with insulin injections cyclobenzaprine 10 mg tablet 10 mg PO Q8H Patient Comments: TAKE ONE TABLET BY MOUTH EVERY 8 HOURS MAY CAUSE DROWSINESS atorvastatin 80 mg tablet 80 mg PO HS Patient Comments: TAKE ONE TABLET BY MOUTH EVERY DAY metoprolol tartrate 100 mg tablet 100 mg PO DAILY Patient Comments: TAKE THREE TABLETS BY MOUTH TWICE DAILY clonazepam 0.5 mg tablet 0.5 mg PO DAILY Patient Comments: TAKE ONE TABLET BY MOUTH EVERY DAY NEEDED FOR agitation MAY CAUSE DROWSINESS clopidogrel 75 mg tablet 75 mg PO DAILY Patient Comments: TAKE ONE TABLET BY MOUTH EVERY DAY spironolactone 25 mg tablet 25 mg PO DAILY Patient Comments: TAKE ONE TABLET BY MOUTH EVERY DAY pantoprazole 40 mg tablet,delayed release (DR/EC) 40 mg PO DAILY Patient Comments: TAKE ONE TABLET BY MOUTH EVERY DAY FOR acid reflux bumetanide 1 mg tablet 1 mg PO BID Patient Comments: TAKE ONE TABLET BY MOUTH TWICE DAILY albuterol sulfate [Ventolin HFA] 90 mcg/actuation HFA aerosol inhaler 2 puff INHALATION Q6HP PRN (Reason: SOA) Patient Comments: INHALE TWO PUFFS BY MOUTH EVERY 6 HOURS NEEDED FOR SHORTNESS OF BREATH valsartan 40 mg tablet 40 mg PO DAILY Patient Comments: TAKE ONE TABLET BY MOUTH EVERY DAY Humulin 70/30 U-100 KwikPen 100 unit/mL (70-30) insulin pen 18 unit SQ BID Patient Comments: INJECT 18 UNITS SUBCUTANEOUSLY TWICE DAILY FOR diabetes fluticasone propion-salmeterol [Advair HFA] 45-21 mcg/actuation HFA aerosol i nhaler 2 inh INHALATION BID Patient Comments: INHALE TWO PUFFS BY MOUTH TWICE DAILY --RINSE MOUTH AFTER USE-- insulin glargine [Lantus Solostar U-100 Insulin] 100 unit/mL (3 mL) insulin pen 10 unit SQ HS Patient Comments: INJECT 10 UNITS SUBCUTANEOUSLY EVERY DAY AT BEDTIME Xarelto 15 mg tablet 15 mg PO DAILY Patient Comments: TAKE ONE TABLET BY MOUTH EVERY DAY dapagliflozin propanediol [Farxiga] 10 mg tablet 10 mg PO DAILY Patient Comments: TAKE ONE TABLET BY MOUTH EVERY DAY Referrals Follow up/Referrals: Nickolas Matthew APRN [Primary Care Provider] - See instructions Activity Restrictions/Add. Instructions Additional Instructions/Restrictions: Drink plenty of fluids. Take tylenol or ibuprofen for pain or fever. Take the medications as directed. Follow up with your regular doctor. GO TO THE ER FOR ANY WORSENING SYMPTOMS Clinical Impressions Clinical Impression: COPD exacerbation, Sinusitis Instructions Patient Instructions: Chronic Obstructive Pulmonary Disease, DI for Chronic Obstructive Pulmonary Disease, DI for Sinusitis, Ceftriaxone Injection, Methylprednisolone Injection Print Language Print Language: Lebanese Discharge ED Provider: Vicki Avila [facility] General Stated complaint: soa Time Seen by Provider: 12/17/23 13:40 Related Data Home Medications ?Medication ?Instructions ?Recorded ?Confirmed albuterol sulfate 90 mcg/actuation 2 puff inhalation Q6HP PRN SOA 12/17/23 12/17/23 aerosol inhaler (Ventolin HFA) atorvastatin 80 mg tablet 80 mg PO HS 12/17/23 12/17/23 bumetanide 1 mg tablet 1 mg PO BID 12/17/23 12/17/23 clonazepam 0.5 mg tablet 0.5 mg PO DAILY 12/17/23 12/17/23 clopidogrel 75 mg tablet 75 mg PO DAILY 12/17/23 12/17/23 cyclobenzaprine 10 mg tablet 10 mg PO Q8H 12/17/23 12/17/23 dapagliflozin propanediol 10 mg 10 mg PO DAILY 12/17/23 12/17/23 tablet (Farxiga) fluticasone propionate 45 2 inh inhalation BID 12/17/23 12/17/23 mcg-salmeterol 21 mcg/actuation HFA inhaler (Advair HFA) insulin NPH-regular 70-30 U-100 18 unit SQ BID 12/17/23 12/17/23 insulin 100 unit/mL subcutaneous pen (Humulin 70/30 U-100 KwikPen) insulin glargine 100 unit/mL (3 10 unit SQ HS 12/17/23 12/17/23 mL) subcutaneous pen (Lantus Solostar U-100 Insulin) metoprolol tartrate 100 mg tablet 100 mg PO DAILY 12/17/23 12/17/23 pantoprazole 40 mg tablet,delayed 40 mg PO DAILY 12/17/23 12/17/23 release rivaroxaban 15 mg tablet (Xarelto) 15 mg PO DAILY 12/17/23 12/17/23 spironolactone 25 mg tablet 25 mg PO DAILY 12/17/23 12/17/23 valsartan 40 mg tablet 40 mg PO DAILY 12/17/23 12/17/23 Previous Rx's ?Medication ?Instructions ?Recorded blood-glucose meter,continuous #1 ea 06/19/23 (Dexcom G7 Medical Records Secretary) blood-glucose sensor (Dexcom G7 #3 ea 10/30/23 Sensor device) pen needle, diabetic 32 gauge x #100 ea 12/12/2332 (BD Ultra-Fine Becka Pen Needle) amoxicillin 875 mg-potassium 1 tab PO Q12H #20 tabs 12/17/23 clavulanate 125 mg tablet benzonatate 100 mg capsule 100 mg PO TIDP PRN Cough #30 caps 12/17/23 prednisone 10 mg tablet 10 mg PO DIRECTED 9 days #21 12/17/23 tabs Allergies Allergy/AdvReac Type Severity Reaction Status Date / Time oxycodone [From PERCOCET] Allergy Unknown Unknown Verified 10/30/23 10:56 allergy reaction isosorbide [From Imdur] AdvReac Severe Headache [facility] 10/30/23 10:[address] [facility] Disclaimer: The information contained in this section may have been updated after the patient was seen, as this information can be updated by other users. Medical History Encounter for screening for malignant neoplasm of lung Lung nodule Smoking greater than 30 pack years COPD mixed type Dyspnea on exertion Chronic a-fib History of COVID-19 Sleep apnea Migraine History of gastroesophageal reflux (GERD) Diabetes mellitus, type 2 History of left heart catheterization (LHC) Breast cancer Cardiac murmur Atypical angina Abnormal stress test Neuropathic pain Cardiomyopathy Left carotid bruit Tobacco dependence syndrome ADRIANA (obstructive sleep apnea) Diastolic dysfunction Ex-smoker Abnormal EKG HTN (hypertension) Tachycardia induced cardiomyopathy Fatigue IDDM (insulin dependent diabetes mellitus) Neuropathy Congestive heart failure Diabetes mellitus Surgical History History of right heart catheterization (RHC) Tubal ligation status History of tonsillectomy Family History Other Family history of COPD (chronic obstructive pulmonary disease) Family history of GERD Family history of cancer Family history of diabetes mellitus type II Family history of hyperlipidemia Family history of hypertension Family history of migraine headaches Family history of myocardial infarction Family history of stroke Social History Smoking Status: Current every day smoker tobacco type: cigarettes packs per day: 1 second hand exposure: No alcohol intake: never counseling provided: none substance use type: marijuana current occupational status: retired, disabled and other Travel in the last 8 weeks: None household members: family and children housing: house current occupational exposures/hazards: No caffeine: No ROS Obtained: Yes All systems reviewed & no additional complaints except as documented Constitutional Constitutional: Reports poor appetite Eyes Eyes: Reports system reviewed and no additional complaints, except as documented ENT Ears, Nose, Mouth, and Throat: Reports as per HPI Cardiovascular Cardiovascular: Reports system reviewed and no additional complaints, except as documented and Denies chest pain Respiratory Respiratory: Denies shortness of breath, Reports chest congestion, Reports cough, Denies stridor and Denies wheezing Gastrointestinal Gastrointestingal: Reports system reviewed and no additional complaints, except as documented; Denies abdominal pain, diarrhea or vomiting Musculoskeletal Musculoskeletal: Reports system reviewed and no additional complaints, except as documented and Denies arthralgias Integumentary/Breasts Skin/Breast: Reports system reviewed and no additional complaints, except as documented and Denies rash Neurologic Neurologic: Denies paresthesias Allergic/Immunologic Allergic/Immunologic: Denies wheezing Physical Exam General General appearance: alert and in no apparent distress Eye Eye exam: Present normal appearance, PERRL and EOMI ENT ENT exam: Present mucous membranes moist and normal external ear exam Expanded ENT Exam External ear exam: Present normal external inspection TM/Canal exam: Bilateral TM: erythema and bulging Nose exam: Absent sinus tenderness Nasal speculum exam: Bilateral: normal Mouth exam: Present normal external inspection; Absent drooling Teeth exam: Present normal inspection Throat exam: Present tonsillar erythema and tonsillomegaly Neck Neck exam: Present normal inspection, full ROM and trachea midline; Absent tenderness, lymphadenopathy or thyromegaly Chest Chest inspection: Present normal inspection and symmetric chest wall rise; Absent tenderness or rash Respiratory Respiratory exam: Present normal lung sounds bilaterally; Absent respiratory distress, wheezes, stridor or accessory muscle use Cardiovascular Cardiovascular exam: Present regular rate, normal rhythm and normal heart sounds Abdominal Exam Abdominal exam: Present soft; Absent distention, tenderness, guarding, rebound or rigidity Extremities Exam Extremities exam: Present normal inspection, full ROM and normal capillary refill; Absent tenderness or calf tenderness Back Exam Back exam: Present normal inspection and full ROM; Absent tenderness Neurological Exam Neurological exam: Present alert and oriented X3 Psychiatric Psychiatric exam: Present normal affect and normal mood Skin Skin exam: Present warm, dry, intact and normal color Lymphatic Lymphatic Findings: no adenopathy Medical Decision Making Medical Records Medical records reviewed: No I reviewed the patient's medical records. Screening: Per USPSTF and CDC recommendations, given the prevalence of disease in our region, it is our hospital?s policy to screen for HIV and viral Hepatitis for all patients aged 18 and over and those with ongoing risk factors. Gianfranco Inquiry Pt receiving controlled substance: No Lab Data Lab results reviewed: Yes I reviewed the patient's lab results.
[2023-12-17] MEDS: cefTRIAXone 1GM VIAL 1 GM IM (14:20)
[2023-12-17] MEDS: LIDOCAINE 1% 5ML PF VIAL IM (14:20)
[2023-12-17] MEDS: METHYLPREDNISOLONE SOD SUCC 125MG VIAL 125 MG IM (14:20)
[2023-12-17 14:32] VITALS: BP 113/95; PULSE 103; RESP 20; TEMP 36.5; O2SAT 94
== END 2023-12-17 14:37 | disposition home or self-care (01) ==
PROVIDERS: Emergency Provider Nurse Practitioner Family; PCP Nurse Practitioner Family
DX: J44.1 Chronic obstructive pulmonary disease with (acute) exacerbation (principal); J01.80 Other acute sinusitis
CPT/HCPCS: 87635; 96372; 99213; G0381; J0696; J2919

== ENCOUNTER 2024-01-01 19:23 | Inpatient (IN) | payer MEDICARE, MEDICAID, SELFPAY ==
[2024-01-01] VITALS (8 sets, daily range): BP systolic 110–173; BP diastolic 65–100; PULSE 96–125; RESP 16–30; TEMP 36.6–37.4; O2SAT 90–98; BMI 35.5; BMI 34.4
--- NOTE | 2024-01-01 19:23 | ECG_ITS ---
APPROVED REPORT Exam: Resting ECG HR:131 bpm ECG Measurements Heart Rate 131 AXES QRSd 96 QRS -39 QT 322 T 80 QTc 399 Conclusion ATRIAL FIBRILLATION WITH RAPID VENTRICULAR RESPONSE WITH ABERRANT CONDUCTION OR VENTRICULAR PREMATURE COMPLEXES LEFT AXIS DEVIATION [QRS AXIS < -30] POSSIBLE ANTERIOR MYOCARDIAL INFARCTION , PROBABLY OLD [30 ms Q WAVE IN V3/V4, OR R < 0.2 mV IN V4] ABNORMAL ECG UNCONFIRMED REPORT Electronically signed by : DUGLAS ALMANZAR, 01/02/2024 00:17:17
--- NOTE | 2024-01-01 19:24 | XR_ITS ---
PROCEDURE INFORMATION: Exam: XR Chest Exam date and time: 01/01/2024 7:53 PM Age: 63 years old Clinical indication: Pain; Chest pressure; Additional info: Chest pain, a-fib rvr TECHNIQUE: Imaging protocol: Radiologic exam of the chest. Views: 1 view. COMPARISON: CR XR CHEST 2V 08/27/2023 9:30 PM FINDINGS: Lungs: Reticular opacities are noted at each lung base. Pulmonary venous distension. Pleural spaces: Left pleural effusion. Heart/Mediastinum: Mild cardiomegaly. Bones/joints: Age appropriate. IMPRESSION: Constellation of findings is compelling for heart failure. Interstitial pneumonitis with left pleural effusion is also a differential consideration.
--- NOTE | 2024-01-01 19:24 | ED_ITS ---
<Statement entered by Michelle Sanchez DO - 01/01/24 23:56> I was consulted by the CASI, and we discussed the complexity of the problems being addressed. I approved the treatment and management plan for this patient's care in the emergency department, thus performing a substantive portion of the medical decision making. Michelle Sanchez DO Discharge Plan Disposition Patient Disposition: Admitted Condition: Serious Clinical Impressions Clinical Impression: Atrial fibrillation with rapid ventricular response, Pulmonary edema, Acute exacerbation of CHF (congestive heart failure), Community acquired pneumonia Discharge ED Provider: Michelle Sanchez HPI <THELMA Li - Last Filed: 01/01/24 21:30> General Chief Complaint: Headache Stated Complaint: Body aches for 1 hr Time Seen by Provider: 01/01/24 19:24 History of Present Illness HPI narrative: Patient presents for evaluation of malaise headache body aches for approximately 1 hour. She denies cardiac chest pain shortness of breath chills hemoptysis hematochezia melena nausea vomiting diarrhea. She does have a history of COPD but is not on home O2 and still smokes. She also has a history of atrial fibrillation on Xarelto. She does not know if she has ever been in sinus rhythm or how fast her heart rate is at baseline. She does not feel that her heart rate is fast currently and she is in A-fib RVR with a rate of 125 on arrival Related Data Home Medications ?Medication ?Instructions ?Recorded ?Confirmed albuterol sulfate 90 mcg/actuation 2 puff inhalation Q6HP PRN SOA 12/17/23 12/17/23 aerosol inhaler (Ventolin HFA) atorvastatin 80 mg tablet 80 mg PO HS 12/17/23 12/17/23 bumetanide 1 mg tablet 1 mg PO BID 12/17/23 12/17/23 clonazepam 0.5 mg tablet 0.5 mg PO DAILY 12/17/23 12/17/23 clopidogrel 75 mg tablet 75 mg PO DAILY 12/17/23 12/17/23 cyclobenzaprine 10 mg tablet 10 mg PO Q8H 12/17/23 12/17/23 dapagliflozin propanediol 10 mg 10 mg PO DAILY 12/17/23 12/17/23 tablet (Farxiga) fluticasone propionate 45 2 inh inhalation BID 12/17/23 12/17/23 mcg-salmeterol 21 mcg/actuation HFA inhaler (Advair HFA) insulin NPH-regular 70-30 U-100 18 unit SQ BID 12/17/23 12/17/23 insulin 100 unit/mL subcutaneous pen (Humulin 70/30 U-100 KwikPen) insulin glargine 100 unit/mL (3 10 unit SQ HS 12/17/23 12/17/23 mL) subcutaneous pen (Lantus Solostar U-100 Insulin) metoprolol tartrate 100 mg tablet 100 mg PO DAILY 12/17/23 12/17/23 pantoprazole 40 mg tablet,delayed 40 mg PO DAILY 12/17/23 12/17/23 release rivaroxaban 15 mg tablet (Xarelto) 15 mg PO DAILY 12/17/23 12/17/23 spironolactone 25 mg tablet 25 mg PO DAILY 12/17/23 12/17/23 valsartan 40 mg tablet 40 mg PO DAILY 12/17/23 12/17/23 Previous Rx's ?Medication ?Instructions ?Recorded blood-glucose meter,continuous #1 ea 06/19/23 (Dexcom G7 [employer] Making [employer] Supervisor) blood-glucose sensor (Dexcom G7 #3 ea 10/30/23 Sensor device) pen needle, diabetic 32 gauge x #100 ea 12/12/2332 (BD Ultra-Fine Becka Pen Needle) amoxicillin 875 mg-potassium 1 tab PO Q12H #20 tabs 12/17/23 clavulanate 125 mg tablet benzonatate 100 mg capsule 100 mg PO TIDP PRN Cough #30 caps 12/17/23 prednisone 10 mg tablet 10 mg PO DIRECTED 9 days #21 12/17/23 tabs Allergies Allergy/AdvReac Type Severity Reaction Status Date / Time oxycodone [From PERCOCET] Allergy Unknown Unknown Verified 10/30/23 10:56 allergy reaction isosorbide [From Imdur] AdvReac Severe Headache Verified 10/30/23 10:56 PFS <THELMA Li - Last Filed: 01/01/24 21:30> PFS Disclaimer: The information contained in this section may have been updated after the patient was seen, as this information can be updated by other users. Medical History Encounter for screening for malignant neoplasm of lung Lung nodule Smoking greater than 30 pack years COPD mixed type Dyspnea on exertion Chronic a-fib History of COVID-19 Sleep apnea Migraine History of gastroesophageal reflux (GERD) Diabetes mellitus, type 2 History of left heart catheterization (LHC) Breast cancer Cardiac murmur Atypical angina Abnormal stress test Neuropathic pain Cardiomyopathy Left carotid bruit Tobacco dependence syndrome ARDIANA (obstructive sleep apnea) Diastolic dysfunction Ex-smoker Abnormal EKG HTN (hypertension) Tachycardia induced cardiomyopathy Fatigue IDDM (insulin dependent diabetes mellitus) Neuropathy Congestive heart failure Diabetes mellitus Surgical History History of right heart catheterization (RHC) Tubal ligation status History of tonsillectomy Family History Other Family history of COPD (chronic obstructive pulmonary disease) Family history of GERD Family history of cancer Family history of diabetes mellitus type II Family history of hyperlipidemia Family history of hypertension Family history of migraine headaches Family history of myocardial infarction Family history of stroke Social History Smoking Status: Current every day smoker tobacco type: cigarettes packs per day: 1 second hand exposure: No alcohol intake: never counseling provided: none substance use type: marijuana current occupational status: retired, disabled and other Travel in the last 8 weeks: None household members: family and children housing: house current occupational exposures/hazards: No caffeine: No Other Medical History Have you received the Flu Vaccine for this season: No Have you received the Pneumonia Vaccine: Yes <THELMA Li - Last Filed: 01/01/24 21:30> ROS Obtained: Yes Systems reviewed as appropriate & no additional complaints except as documented Physical Exam <THELMA Li - Last Filed: 01/01/24 21:30> General General appearance: alert and in no apparent distress Respiratory Respiratory exam: Absent normal lung sounds bilaterally Cardiovascular Cardiovascular exam: Present tachycardia and irregular rhythm Neurological Exam Neurological exam: Present alert and oriented X3 HEART Score <THELMA Li - Last Filed: 01/01/24 21:30> HEART Score HEART Score assessment performed?: Yes History (anamnesis): Slightly suspicious ECG: Non-specific disturbance Age: >65 years Risk factors: Atherosclerosis history Troponin: </= normal limit HEART Score: 5 Critical Care <THELMA Li - Last Filed: 01/01/24 21:30> Critical Care Time Critical Care Time: Yes Attestation: On 01/01/24, the high probability of a clinically significant, sudden or life threatening deterioration of the following system: Cardiopulmonary; required my full and direct attention, intervention and personal management. The time I documented below is in addition to time spent performing reported procedures but includes the following listed in this critical care notation. Total Time Total Critical Care Time: 30 Medical Decision Making <THELMA Li - Last Filed: 01/01/24 21:30> Medical Records Medical records reviewed: Yes I reviewed the patient's medical records. Gianfranco Casanova Pt receiving controlled substance: No Vital Signs Vital Signs: 01/01/24 19:24 Temperature 99.4 F Temperature Source Oral Pulse Rate [Right Radial] 125 H Respiratory Rate 30 H Blood Pressure [Right Arm] 173/100 H Blood Pressure Mean [Right Arm] 124 02 Sat by Pulse Oximetry 90 L Oxygen Delivery Method Room Air Lab Data Lab results reviewed: Yes I reviewed the patient's lab results. Labs: Lab Results 01/01/24 19:26: VBG pH 7.28 L, VBG pCO2 54.9 H, VBG pO2 23.1 L, VBG HCO3 25.4, V BG Total CO2 27.1 H, VBG O2 Saturation 43.6 L, VBG Base Excess -1.3, VBG Lactic Acid 2.0 01/01/24 19:31: Lactate 1.5 01/01/24 19:33: WBC 12.7 H, RBC 5.28, Hgb 15.8, Hct 49.6 H, MCV 93.9, MCH 29.9, MCHC 31.8, RDW 14.8, Plt Count 227, MPV 8.3, Neut % (Auto) 75.2, Lymph % (Auto) 17.2, Bladen % (Auto) 5.4, Eos % (Auto) 0.8, Baso % (Auto) 1.4, Neut # (Auto) 9.5 H, Lymph # (Auto) 2.2, Bladen # (Auto) 0.7, Eos # (Auto) 0.1, Baso # (Auto) 0.2, S odium 133 L, Potassium 4.4, Chloride 106, Carbon Dioxide 28, Anion Gap 3.4 L, B UN 25 H, Creatinine 1.10 H, Estimated Creat Clear 83, Estimated GFR 50 L, Est GFR ( Amer) 60, Glucose 222 H, Calcium 9.5, Magnesium 2.1, Total Bilirubin 0.9, AST 35, ALT 49, Alkaline Phosphatase 104, Troponin I < 0.01, N T-Pro-B Natriuret Pep 6580 H, Total Protein 7.2, Albumin 4.1, Globulin 3.1, Albumin/Globulin Ratio 1.3, Procalcitonin 0.067 01/01/24 19:33 01/01/24 19:33 Response Orders (Tests/Meds): ED MEDICATIONS Discontinued Medications Generic Name Dose Route Start Last Admin Trade Name Freq PRN Reason Stop Dose Admin Acetaminophen 1,000 mg 01/01/24 19:24 01/01/24 19:54 Acetaminophen 500mg Tab PO 01/01/24 19:25 1,000 mg ONCE ONE Administration Albuterol/Ipratropium 9 ml 01/01/24 19:24 01/01/24 19:38 Ipratropium/Albuterol 3 Ml Neb IH 01/01/24 19:25 9 ml ONCE ONE Administration Dexamethasone Sodium Phosphate 10 mg 01/01/24 19:24 01/01/24 19:38 Dexamethasone 4mg/Ml 5ml Mdv IV 01/01/24 19:25 10 mg ONCE ONE Administration Diltiazem HCl 20 mg 01/01/24 19:36 01/01/24 19:52 Diltiazem 25mg/5ml Vial IV 01/01/24 19:37 20 mg ONCE ONE Administration Furosemide 80 mg 01/01/24 20:13 01/01/24 21:06 Furosemide 40mg/4ml Vial IV 01/01/24 20:14 80 mg ONCE ONE Administration Lactated Ringer's 500 mls @ 999 mls/hr 01/01/24 20:02 01/01/24 20:05 Lactated Ringer's 500ml IV 01/01/24 20:32 999 mls/hr .Q31M ONE Administration Magnesium Sulfate 2 gm in 50 mls @ 50 mls/hr 01/01/24 20:13 01/01/24 21:06 Magnesium Sulfate 2gm/50ml Premix IV 01/01/24 21:12 50 mls/hr ONCE ONE Administration Ceftriaxone Sodium 1 gm/ 50 mls @ 100 mls/hr 01/01/24 20:26 Sodium Chloride IV 01/01/24 20:55 ONCE ONE Azithromycin 500 mg/ Sodium 250 mls @ 250 mls/hr 01/01/24 20:25 Chloride IV 01/01/24 20:26 ONCE ONE Ketorolac Tromethamine 15 mg 01/01/24 19:24 01/01/24 19:55 Ketorolac 30mg/Ml Vial IV 01/01/24 19:25 15 mg ONCE ONE Administration Ondansetron HCl 4 mg 01/01/24 19:24 01/01/24 19:38 Ondansetron 4mg/2ml Vial IV 01/01/24 19:25 4 mg ONCE ONE Administration ORDERS Category Date Time Status Chest XR -- portable [XR chest portable] Stat Exams 01/01/24 19:24 Taken BNP [NT Pro Brain Natriuretic Pep.] Stat Lab 01/01/24 19:33 Completed CBC w/Auto Diff [Complete Blood Count Auto Diff] Stat Lab 01/01/24 19:33 Completed CMP [Comprehensive Metabolic Panel] Stat Lab 01/01/24 19:33 Completed Full Resp Panel w/COVID ([facility]) Routine Lab 01/01/24 19:30 Received Lactic Acid Stat Lab 01/01/24 19:31 Completed Magnesium Stat Lab 01/01/24 19:33 Completed Procalcitonin Stat Lab 01/01/24 19:33 Completed Trop I [Troponin I] Stat Lab 01/01/24 19:33 Completed Troponin I Q3H Lab 01/01/24 22:30 Ordered Troponin I Q3H Lab 01/02/24 01:30 Ordered Blood Culture Stat Micro 01/01/24 19:31 Ordered VBG [Venous Blood Gas] Stat RT 01/01/24 19:26 Completed Tissue Perfus/Sepsis Re-Eval Date Performed: 01/01/24 Time Performed: 20:29 MDM Narrative Medical Decision Narrative: In summary patient is a 63-year-old female who presents to the emergency department for evaluation of malaise headache body aches. Patient is initially hypertensive at a blood pressure 173/100 heart rate 125 irregularly irregular on the bedside monitor breathing 30 times a minute satting at 90% on room air with a temperature of 99.4 . Physical exam is remarkable for tachypnea without accessory muscle use, coarse breath sounds with Rales in all 4 henley +1 dependent edema in the bilateral lower extremities rapid irregularly irregular rate and rhythm without murmurs gallops or thrills and A-fib RVR on the bedside monitor. Differential diagnosis includes CHF exacerbation versus pneumonia versus pulmonary edema versus ACS etc. Initial workup will be conducted with hematologic labs twelve-lead EKG plain film chest x-ray. Initial interventions include 500 cc fluid challenge Toradol Tylenol 80 mg of Lasix DuoNeb Decadron. Initial workup reviewed by me shows that she has an NT proBNP of 6580 with a undetectable troponin, procalcitonin is 0.067, VBG shows a pH of 7.28 with a venous lactic acid of 2 CBC shows white count of 12.7 with absolute neutrophil count of 9.5 and my informal interpretation of her plain film chest x-ray shows infiltrates and dependent edema consistent with both pulmonary edema and also possibly pneumonia or both prior to radiology read. Patient did respond to a 20 mg push dose of Cardizem to slow her rate however she remains in atrial fibrillation. Given this I had an interactive discussion with hospital medicine about patient management and she will be admitted for further evaluation and care. <Michelle Sanchez, DO - Last Filed: 01/01/24 19:33> Vital Signs Vital Signs: 01/01/24 19:24 Temperature 99.4 F Temperature Source Oral Pulse Rate [Right Radial] 125 H Respiratory Rate 30 H Blood Pressure [Right Arm] 173/100 H Blood Pressure Mean [Right Arm] 124 02 Sat by Pulse Oximetry 90 L Oxygen Delivery Method Room Air Lab Data Labs: Lab Results 01/01/24 19:26: VBG pH 7.28 L, VBG pCO2 54.9 H, VBG pO2 23.1 L, VBG HCO3 25.4, V BG Total CO2 27.1 H, VBG O2 Saturation 43.6 L, VBG Base Excess -1.3, VBG Lactic Acid 2.0 01/01/24 19:31: Lactate 1.5 01/01/24 19:33: WBC 12.7 H, RBC 5.28, Hgb 15.8, Hct 49.6 H, MCV 93.9, MCH 29.9, MCHC 31.8, RDW 14.8, Plt Count 227, MPV 8.3, Neut % (Auto) 75.2, Lymph % (Auto) 17.2, Bladen % (Auto) 5.4, Eos % (Auto) 0.8, Baso % (Auto) 1.4, Neut # (Auto) 9.5 H, Lymph # (Auto) 2.2, Bladen # (Auto) 0.7, Eos # (Auto) 0.1, Baso # (Auto) 0.2, S odium 133 L, Potassium 4.4, Chloride 106, Carbon Dioxide 28, Anion Gap 3.4 L, B UN 25 H, Creatinine 1.10 H, Estimated Creat Clear 83, Estimated GFR 50 L, Est GFR ( Amer) 60, Glucose 222 H, Calcium 9.5, Magnesium 2.1, Total Bilirubin 0.9, AST 35, ALT 49, Alkaline Phosphatase 104, Troponin I < 0.01, N T-Pro-B Natriuret Pep 6580 H, Total Protein 7.2, Albumin 4.1, Globulin 3.1, Albumin/Globulin Ratio 1.3, Procalcitonin 0.067 Response Orders (Tests/Meds): ED MEDICATIONS Discontinued Medications Generic Name Dose Route Start Last Admin Trade Name Freq PRN Reason Stop Dose Admin Acetaminophen 1,000 mg 01/01/24 19:24 01/01/24 19:54 Acetaminophen 500mg Tab PO 01/01/24 19:25 1,000 mg ONCE ONE Administration Albuterol/Ipratropium 9 ml 01/01/24 19:24 01/01/24 19:38 Ipratropium/Albuterol 3 Ml Neb IH 01/01/24 19:25 9 ml ONCE ONE Administration Dexamethasone Sodium Phosphate 10 mg 01/01/24 19:24 01/01/24 19:38 Dexamethasone 4mg/Ml 5ml Mdv IV 01/01/24 19:25 10 mg ONCE ONE Administration Diltiazem HCl 20 mg 01/01/24 19:36 01/01/24 19:52 Diltiazem 25mg/5ml Vial IV 01/01/24 19:37 20 mg ONCE ONE Administration Furosemide 80 mg 01/01/24 20:13 01/01/24 21:06 Furosemide 40mg/4ml Vial IV 01/01/24 20:14 80 mg ONCE ONE Administration Lactated Ringer's 500 mls @ 999 mls/hr 01/01/24 20:02 01/01/24 20:05 Lactated Ringer's 500ml IV 01/01/24 20:32 999 mls/hr .Q31M ONE Administration Magnesium Sulfate 2 gm in 50 mls @ 50 mls/hr 01/01/24 20:13 01/01/24 21:06 Magnesium Sulfate 2gm/50ml Premix IV 01/01/24 21:12 50 mls/hr ONCE ONE Administration Ceftriaxone Sodium 1 gm/ 50 mls @ 100 mls/hr 01/01/24 20:26 Sodium Chloride IV 01/01/24 20:55 ONCE ONE Azithromycin 500 mg/ Sodium 250 mls @ 250 mls/hr 01/01/24 20:25 Chloride IV 01/01/24 20:26 ONCE ONE Ketorolac Tromethamine 15 mg 01/01/24 19:24 01/01/24 19:55 Ketorolac 30mg/Ml Vial IV 01/01/24 19:25 15 mg ONCE ONE Administration Ondansetron HCl 4 mg 01/01/24 19:24 01/01/24 19:38 Ondansetron 4mg/2ml Vial IV 01/01/24 19:25 4 mg ONCE ONE Administration ORDERS Category Date Time Status Chest XR -- portable [XR chest portable] Stat Exams 01/01/24 19:24 Taken BNP [NT Pro Brain Natriuretic Pep.] Stat Lab 01/01/24 19:33 Completed CBC w/Auto Diff [Complete Blood Count Auto Diff] Stat Lab 01/01/24 19:33 Completed CMP [Comprehensive Metabolic Panel] Stat Lab 01/01/24 19:33 Completed Full Resp Panel w/COVID ([facility]) Routine Lab 01/01/24 19:30 Received Lactic Acid Stat Lab 01/01/24 19:31 Completed Magnesium Stat Lab 01/01/24 19:33 Completed Procalcitonin Stat Lab 01/01/24 19:33 Completed Trop I [Troponin I] Stat Lab 01/01/24 19:33 Completed Troponin I Q3H Lab 01/01/24 22:30 Ordered Troponin I Q3H Lab 01/02/24 01:30 Ordered Blood Culture Stat Micro 01/01/24 19:31 Ordered VBG [Venous Blood Gas] Stat RT 01/01/24 19:26 Completed ECG Data Tracing #1: Attestation: I reviewed this ECG and interpreted as documented below: ECG Narrative: Atrial fibrillation with rapid ventricular response with a rate of [address] changes concerning for STEMI. Left axis deviation noted. ECG initial impression date: 01/01/24 ECG initial impression time: 19:24
--- NOTE | 2024-01-01 19:29 | PC.NURSE ---
Respiratory notified of VBG order.
[2024-01-01] MEDS: IPRATROPIUM/ALBUTEROL 3 ML NEB 9 ML IH (19:38)
[2024-01-01] MEDS: ONDANSETRON 4MG/2ML VIAL 4 MG IV (19:38)
[2024-01-01] MEDS: DEXAMETHASONE 4MG/ML 5ML MDV 10 MG IV (19:38)
--- NOTE | 2024-01-01 19:38 | PC.NURSE ---
Pt states she has taken tylenol and ibuprofen already
[2024-01-01 19:39] LABS: Adenovirus,PCR Not Detected (NotDetected); Bordetella Pertussis Not Detected (NotDetected); Chlamydophila Pneumoniae, PCR Not Detected (NotDetected); Coronavirus 19, PCR Not Detected (NotDetected); Coronavirus 229E Not Detected (NotDetected); Coronavirus NL63 Not Detected (NotDetected); Coronavirus OC43 Not Detected (NotDetected); Coronovirus HKU1,PCR Not Detected (NotDetected); Human Metapneumovirus Not Detected (NotDetected); Influenza A, PCR Not Detected (NotDetected); Influenza AH1, 2009 Not Detected (NotDetected); Influenza AH1, PCR Not Detected (NotDetected); Influenza AH3,PCR Not Detected (NotDetected); Influenza B, PCR Not Detected (NotDetected); Mycoplasma Pneumoniae, PCR Not Detected (NotDetected); Parainfluenza 1, PCR Not Detected (NotDetected); Parainfluenza 2, PCR Not Detected (NotDetected); Parainfluenza 3, PCR Not Detected (NotDetected); Parainfluenza 4, PCR Not Detected (NotDetected); Respiratory Syncytial Virus Not Detected (NotDetected); Rhinovirus/Enterovirus Not Detected (NotDetected)
[2024-01-01 19:42] LABS: Basophils # 0.2 K/mm3 (0-0.2); Basophils % 1.4 % (0.1-2.0); Eosinophils # 0.1 K/mm3 (0.0-0.4); Eosinophils % 0.8 % (0.1-12.0); Hematocrit 49.6 % (37.0-47.0); Hemoglobin 15.8 g/dL (12.2-16.2); Lymphocytes # 2.2 K/mm3 (0.7-4.5); Lymphocytes % 17.2 % (10-50); Mean Corpuscular HGB Conc 31.8 g/dL (31.8-35.4); Mean Corpuscular Hemoglobin 29.9 pg (27.0-31.2); Mean Corpuscular Volume 93.9 fl (81-99); Mean Platelet Volume 8.3 fl (7.4-10.4); Monocytes # 0.7 K/mm3 (0.1-1.0); Monocytes % 5.4 % (1.7-9.3); Neutrophils # 9.5 K/mm3 (1.8-7.8); Neutrophils % 75.2 % (37.0-80.0); Platelet Count 227 K/mm3 (142-424); Red Blood Count 5.28 M/mm3 (4.20-5.40); Red Cell Distribution Width 14.8 % (11.5-17.5); White Blood Count 12.7 K/mm3 (4.8-10.8)
[2024-01-01 19:48] LABS: VBG Base Excess -1.3 mmol/L (-2.4-2.3); VBG HCO3 25.4 mmol/L (23-30); VBG Oxygen Saturation 43.6 % (50-70); VBG PH 7.28 mmol/L (7.31-7.41); VBG PO2 23.1 mmol/L (28-40); VBG Total CO2 27.1 mmol/L (23-27)
[2024-01-01 19:52] LABS: VBG PCO2 54.9 mmol/L (35-51)
[2024-01-01 19:52] LABS: Alanine Aminotransferase 49 U/L (12-78); Albumin Level 4.1 g/dl (3.5-5.0); Albumin/Globulin Ratio 1.3 (1.1-1.8); Alkaline Phosphatase 104 U/L (38-126); Anion Gap 3.4 mEq/L (5-15); Aspartate Amino Transferase 35 U/L (14-36); Bilirubin,Total 0.9 mg/dl (0.2-1.3); Blood Urea Nitrogen 25 mg/dl (7-17); Calcium 9.5 mg/dl (8.4-10.2); Carbon Dioxide 28 mmol/L (22.0-30.0); Chloride 106 mmol/L (98-107); Creatinine Clearance Estimated 83 mL/min (50-200); Estimated Glomerular Filt Rate 50 ml/min (>60); GFR (African American) 60 ML/MIN (>60); Globulin 3.1 g/dL (1.3-3.2); Glucose 222 mg/dl (74-100); Magnesium 2.1 mg/dl (1.6-2.3); Potassium 4.4 mmoL/L (3.5-5.1); Sodium 133 mmol/L (136-145); Total Protein,Serum 7.2 g/dl (6.3-8.2)
[2024-01-01] MEDS: dilTIAZem 25MG/5ML VIAL 20 MG IV (19:52)
[2024-01-01] MEDS: ACETAMINOPHEN 500MG TAB 1000 MG PO (19:54)
[2024-01-01] MEDS: KETOROLAC 30MG/ML VIAL 15 MG IV (19:55)
[2024-01-01 20:04] LABS: NT Pro Brain Natriuretic Pep. 6580 pg/mL (0-125)
[2024-01-01 20:05] LABS: Troponin I < 0.01 ng/ml (0.00-0.034)
[2024-01-01] MEDS: RINGERS SOLUTION,LACTATED 500 ML 999 ML IV (20:05)
[2024-01-01 20:09] LABS: Procalcitonin 0.067 ng/mL (0.0-2.0)
[2024-01-01 20:19] LABS: Lactic Acid 1.5 mmol/L (0.7-2.1)
[2024-01-01] MEDS: MAGNESIUM SULFATE IN WATER 2 GM/50 ML PIGGYBACK IV (21:06)
[2024-01-01] MEDS: FUROSEMIDE 40MG/4ML VIAL 80 MG IV (21:06)
--- NOTE | 2024-01-01 21:19 | PC.NURSE ---
lab at bedside for 2nd set of blood cultures.
--- NOTE | 2024-01-01 21:28 | PC.NURSE ---
called report to jarrett parra on 2nd floor and answered all questions
--- NOTE | 2024-01-01 21:30 | PC.NURSE ---
pt medicated per MAY. given a pillow and blanket. no other needs voiced at this time
[2024-01-01] MEDS: CEFTRIAXONE 1 GM 1 GM in 0.9 % SODIUM CHLORIDE 50 ML IV (21:36)
--- NOTE | 2024-01-01 21:37 | P.HP_ITS ---
<Statement entered by Eric Hokpins MD - 01/08/24 20:22> I personally examined the patient and agree with the plan of care outlined by the PEDORTHIST. History of Present Illness *Admission Date: 01/01/24 *Reason for visit:: Acute hypxic respiratory failure *History of present illness: Stephanie Kulkarni is a 63-year-old female past medical history significant for CHF, type 2 diabetes, A-[facility] on Xarelto, COPD, anxiety, PAD, renal artery stenosis, CAD status post 2 stents, HTN who presents emergency room tonight with complaints of generalized malaise, fatigue, and shortness of breath. Ms. Kulkarni states her symptoms started today. Reports she began coughing up yellow-colored sputum today. Reports subjective fever with muscle aches and chills at home. States she just overall feels very poorly. Reports compliance with her diuretics. Denies any recent weight gain, no swelling in her legs or feet. Does wear oxygen as needed at home, typically just uses 2 L if she is feeling short of breath. Denies any headache, chest pain, abdominal pain, bowel or bladder dysfunction. No focal neurodeficits noted. No known sick contacts. Reports compliance with her Xarelto. Continues to smoke, smokes about a pack of cigarettes per day. Denies any alcohol or illicit drug use. Lab work in the ER showed an elevated white count of 12.7 thousand, BUN and creatinine elevated at 25 and 1.1, baseline appears to be around 1.6 but that is from over a year ago. Lactic acid was 1.5. VBG showed a pH of 7.2, pCO2 of 54, pO2 of 23 with a bicarb of 25. BNP elevated at 6580. Patient initially presented to the emergency room in [facility] with RVR, tachypneic, SpO2 sat in the u pper 80s to low 90s, with a temperature of 99.4 ?F. Patient was placed on 2 L nasal cannula and given DuoNebs, diltiazem for rate control, as well as Lasix. Was also given steroids, and started on azithromycin and Rocephin. Checks x-ray showed fluid overload with questionable left lower lobe effusion versus consolidation. Be admitted to the hospitalist service for acute hypoxic respiratory failure secondary to combined COPD and CHF exacerbation. [facility] Disclaimer: The information contained in this section may have been updated after the patient was seen, as this information can be updated by other users. Medical History Encounter for screening for malignant neoplasm of lung Lung nodule Smoking greater than 30 pack years COPD mixed type Dyspnea on exertion Chronic a-fib History of COVID-19 Sleep apnea Migraine History of gastroesophageal reflux (GERD) Diabetes mellitus, type 2 History of left heart catheterization (LHC) Breast cancer Cardiac murmur Atypical angina Abnormal stress test Neuropathic pain Cardiomyopathy Left carotid bruit Tobacco dependence syndrome ADRIANA (obstructive sleep apnea) Diastolic dysfunction Ex-smoker Abnormal EKG HTN (hypertension) Tachycardia induced cardiomyopathy Fatigue IDDM (insulin dependent diabetes mellitus) Neuropathy Congestive heart failure Diabetes mellitus Surgical History History of right heart catheterization (RHC) Tubal ligation status History of tonsillectomy Family History Other Family history of COPD (chronic obstructive pulmonary disease) Family history of GERD Family history of cancer Family history of diabetes mellitus type II Family history of hyperlipidemia Family history of hypertension Family history of migraine headaches Family history of myocardial infarction Family history of stroke Social History Smoking Status: Current every day smoker tobacco type: cigarettes packs per day: 1 second hand exposure: No alcohol intake: never counseling provided: none substance use type: marijuana current occupational status: retired, disabled and other Travel in the last 8 weeks: None household members: family and children housing: house current occupational exposures/hazards: No caffeine: No Other Medical History Have you received the Flu Vaccine for this season: No Have you received the Pneumonia Vaccine: Yes Review of Systems Review of Systems Review of systems:: pertinent systems reviewed and negative unless documented below *Respiratory Comments: Productive cough, yellow-colored sputum Meds Home Medications and Allergies Home Medications ?Medication ?Instructions ?Recorded ?Confirmed ?Type blood-glucose meter,continuous #1 ea 06/19/23 12/17/23 Rx (Dexcom G7 Cull Grader) blood-glucose sensor (Dexcom G7 #3 ea 10/30/23 12/17/23 Rx Sensor device) pen needle, diabetic 32 gauge x #100 ea 12/12/23 12/17/23 Rx 5/32 (BD Ultra-Fine Becka Pen Needle) albuterol sulfate 90 mcg/actuation 2 puff inhalation Q6HP PRN SOA 12/17/23 12/17/23 History aerosol inhaler (Ventolin HFA) amoxicillin 875 mg-potassium 1 tab PO Q12H #20 tabs 12/17/23 Rx clavulanate 125 mg tablet atorvastatin 80 mg tablet 80 mg PO HS 12/17/23 12/17/23 History benzonatate 100 mg capsule 100 mg PO TIDP PRN Cough #30 caps 12/17/23 Rx bumetanide 1 mg tablet 1 mg PO BID 12/17/23 12/17/23 History clonazepam 0.5 mg tablet 0.5 mg PO DAILY 12/17/23 12/17/23 History clopidogrel 75 mg tablet 75 mg PO DAILY 12/17/23 12/17/23 History cyclobenzaprine 10 mg tablet 10 mg PO Q8H 12/17/23 12/17/23 History dapagliflozin propanediol 10 mg 10 mg PO DAILY 12/17/23 12/17/23 History tablet (Farxiga) fluticasone propionate 45 2 inh inhalation BID 12/17/23 12/17/23 History mcg-salmeterol 21 mcg/actuation HFA inhaler (Advair HFA) insulin NPH-regular 70-30 U-100 18 unit SQ BID 12/17/23 12/17/23 History insulin 100 unit/mL subcutaneous pen (Humulin 70/30 U-100 KwikPen) insulin glargine 100 unit/mL (3 10 unit SQ HS 12/17/23 12/17/23 History mL) subcutaneous pen (Lantus Solostar U-100 Insulin) metoprolol tartrate 100 mg tablet 100 mg PO DAILY 12/17/23 12/17/23 History pantoprazole 40 mg tablet,delayed 40 mg PO DAILY 12/17/23 12/17/23 History release prednisone 10 mg tablet 10 mg PO DIRECTED 9 days #21 12/17/23 Rx tabs rivaroxaban 15 mg tablet (Xarelto) 15 mg PO DAILY 12/17/23 12/17/23 History spironolactone 25 mg tablet 25 mg PO DAILY 12/17/23 12/17/23 History valsartan 40 mg tablet 40 mg PO DAILY 12/17/23 12/17/23 History New Prescriptions to Start Prescriptions: Allergies Allergy/AdvReac Type Severity Reaction Status Date / Time oxycodone [From PERCOCET] Allergy Unknown Unknown Verified 10/30/23 10:56 allergy reaction isosorbide [From Imdur] AdvReac Severe Headache Verified 10/30/23 10:56 Exam Data for Last 24 hours Vital signs and Labs for Last 24 Hours: Temp Pulse Resp BP Pulse Ox O2 Del Method 99.4 F 125 H 30 H 173/100 H 90 L Room Air 01/01/24 19:24 01/01/24 19:24 01/01/24 19:24 01/01/24 19:24 01/01/24 19:24 01/01/24 19:24 Laboratory Results - last 24 hr 01/01/24 19:26: VBG pH 7.28 L, VBG pCO2 54.9 H, VBG pO2 23.1 L, VBG HCO3 25.4, VBG Total CO2 27.1 H, VBG O2 Saturation 43.6 L, VBG Base Excess -1.3, VBG Lactic Acid 2.0 01/01/24 19:31: Lactate 1.5 01/01/24 19:33: WBC 12.7 H, RBC 5.28, Hgb 15.8, Hct 49.6 H, MCV 93.9, MCH 29.9, MCHC 31.8, RDW 14.8, Plt Count 227, MPV 8.3, Neut % (Auto) 75.2, Lymph % (Auto) 17.2, [place] % (Auto) 5.4, Eos % (Auto) 0.8, Baso % (Auto) 1.4, Neut # (Auto) 9.5 H, Lymph # (Auto) 2.2, [place] # (Auto) 0.7, Eos # (Auto) 0.1, Baso # (Auto) 0.2, Sodium 133 L, Potassium 4.4, Chloride 106, Carbon Dioxide 28, Anion Gap 3.4 L, BUN 25 H, Creatinine 1.10 H, Estimated Creat Clear 83, Estimated GFR 50 L, Est GFR ( Amer) 60, Glucose 222 H, Calcium 9.5, Magnesium 2.1, Total Bilirub in 0.9, AST 35, ALT 49, Alkaline Phosphatase 104, Troponin I < 0.01, NT-Pro-B Natriuret Pep 6580 H, Total Protein 7.2, Albumin 4.1, Globulin 3.1, Albumin/Globulin Ratio 1.3, Procalcitonin 0.067 I & O for Last 24 hours: Intake & Output 12/29/23 12/30/23 12/31/23 01/01/24 23:59 23:59 23:59 23:59 Weight 102.965 kg Constitutional Constitutional: no acute distress *Routine HEENT Exam Head: Present normocephalic Eye: Present EOMI and PERRL ENT: Present mucous membranes moist *Routine Neck Exam Neck: Present supple; Absent lymphadenopathy *Routine Respiratory Exam Respiratory: Present rales and wheezes Comments: Rales throughout all lung sounds, expiratory wheeze noted occasionally, mildly tachypneic *Routine Cardiovascular Exam Cardiovascular: Present irregular rhythm Comments: A-fib, rate controlled *Routine Abdominal Exam Abdominal: Present soft and normoactive bowel sounds; Absent tenderness *Routine Rectal Exam Rectal:: deferred *Routine Genitalia Exam Genitalia:: deferred *Routine Extremities Exam Extremities: Absent cyanosis, clubbing or edema *Routine Skin Exam Skin: Present warm; Absent rash *Routine Neurological Exam Neurological: Present alert and oriented X3 Assessment and Plan *Assessment and plan (1) Acute exacerbation of CHF (congestive heart failure): Status: Acute Qualifiers: Heart failure type: combined systolic and diastolic Qualified Code(s): I50.43 - Acute on chronic combined systolic (congestive) and diastolic (congestive) heart failure Category: Medical Code(s): I50.9 - Heart failure, unspecified (2) Pulmonary edema: Status: Acute Category: Medical Code(s): J81.1 - Chronic pulmonary edema (3) Atrial fibrillation with rapid ventricular response: Status: Acute Category: Medical Code(s): I48.91 - Unspecified atrial fibrillation (4) COPD exacerbation: Status: Acute Category: Medical Code(s): J44.1 - Chronic obstructive pulmonary disease with (acute) exacerbation (5) Community acquired pneumonia: Status: Acute Category: Medical Code(s): J18.9 - Pneumonia, unspecified organism (6) Anxiety: Status: Acute Category: Medical Code(s): F41.9 - Anxiety disorder, unspecified (7) Smoking greater than 30 pack years: Status: Acute Category: Social Hx Code(s): F17.210 - Nicotine dependence, cigarettes, uncomplicated (8) Diastolic CHF: Status: Acute Category: Medical Code(s): I50.30 - Unspecified diastolic (congestive) heart failure (9) Diabetes: Status: Acute Category: Medical Code(s): E11.9 - Type 2 diabetes mellitus without complications (10) HTN (hypertension): Status: Chronic Qualifiers: Hypertension type: essential hypertension Qualified Code(s): I10 - Essential (primary) hypertension Category: Medical Code(s): I10 - Essential (primary) hypertension Plan Assessment: This is a 63-year-old female being admitted for acute hypoxic respiratory failure likely secondary to combined COPD and CHF exacerbation. On my exam, patient is sitting up in bed in no acute distress. On 2 L nasal cannula, O2 sats in the low to mid 90s. No complaints. Plan: Admit to inpatient-MedSurg Acute hypoxic respiratory failure COPD exacerbation -Maintain SpO2 greater than 92%, supplemental oxygen as needed. Patient wears 2 L nasal cannula as needed at home. Is requiring 2 L nasal cannula here. Please wean oxygen as tolerated -Continue azithromycin and Rocephin, patient with productive cough, fever, leukocytosis -Respiratory panel pending -DuoNebs -Steroids daily -Aggressive pulmonary toilet CHF exacerbation -Telemetry -Continue Lasix every 12 hours -Will order TTE, last TTE was done approximately a year ago. Patient with diastolic dysfunction, LVEF appeared to be approximately 50% -1500 cc fluid restriction -Continue Aldactone -Daily weights -Heart healthy carb consistent diet IDDM -Continue Lantus and NPH -SSI for additional glycemic control -Will order A1c with a.m. labs A-fib -Rate controlled at this time, patient received Cardizem in the ER -Continue metoprolol and Xarelto CAD status post 2 stents -Continue Plavix, Xarelto, valsartan, statin Anxiety -Continue Klonopin as needed Tobacco abuse -Nicotine patch as needed -Tobacco cessation counseling given DVT prophylaxis: Dinorah CODE STATUS: Full code Surrogate decision maker: Colten [phone] Skin: Low risk Estimated length of stay: Greater than 2 midnights
--- NOTE | 2024-01-01 21:38 | PC.NURSE ---
lab finished drawing blood cultures at this time. 2nd floor staff at bedside to transfer pt to rm [id number]
--- NOTE | 2024-01-01 21:46 | PC.NURSE ---
Patient arrived to floor via stretcher from ED at 21:42.
[2024-01-01] MEDS: AZITHROMYCIN 500 MG in 0.9 % SODIUM CHLORIDE 250 ML 250 MG IV (22:09)
[2024-01-01 23:14] LABS: Troponin I < 0.01 ng/ml (0.00-0.034)
[2024-01-02] VITALS (14 sets, daily range): BP systolic 102–134; BP diastolic 51–86; PULSE 62–131; RESP 16–22; TEMP 36.4–36.8; O2SAT 94–99; BMI 34.2
[2024-01-02] MEDS: IPRATROPIUM/ALBUTEROL 3 ML NEB IH ×4 (00:24→18:23)
[2024-01-02 01:45] LABS: Troponin I < 0.01 ng/ml (0.00-0.034)
[2024-01-02 06:21] LABS: POC Glucose,Bedside 410 (70-110)
[2024-01-02] MEDS: SODIUM CHLORIDE 3% 15ML NEB 3 ML IH (06:32)
[2024-01-02 06:40] LABS: Basophils % 0.3 % (0.1-2.0); Eosinophils % 0.1 % (0.1-12.0); Hematocrit 45.8 % (37.0-47.0); Hemoglobin 14.5 g/dL (12.2-16.2); Lymphocytes # 0.6 K/mm3 (0.7-4.5); Lymphocytes % 6.9 % (10-50); Mean Corpuscular HGB Conc 31.6 g/dL (31.8-35.4); Mean Corpuscular Hemoglobin 30.5 pg (27.0-31.2); Mean Corpuscular Volume 96.4 fl (81-99); Mean Platelet Volume 8.5 fl (7.4-10.4); Monocytes # 0.2 K/mm3 (0.1-1.0); Monocytes % 2.7 % (1.7-9.3); Neutrophils # 8.1 K/mm3 (1.8-7.8); Neutrophils % 90.1 % (37.0-80.0); Platelet Count 160 K/mm3 (142-424); Red Blood Count 4.75 M/mm3 (4.20-5.40); Red Cell Distribution Width 15.1 % (11.5-17.5)
[2024-01-02 06:47] LABS: MANUAL DIFFERENTIAL MANUAL DIFFERENTIAL (MANUAL DIFF)
[2024-01-02 06:51] LABS: Chloride 105 mmol/L (98-107); Potassium 5.1 mmoL/L (3.5-5.1); Sodium 133 mmol/L (136-145)
[2024-01-02] MEDS: humaLOG 100 UNITS/ML 10ML VIAL (SSI) SQ ×3 (06:52→21:25)
[2024-01-02 06:54] LABS: Anion Gap 14.1 mEq/L (5-15); Blood Urea Nitrogen 28 mg/dl (7-17); Carbon Dioxide 19 mmol/L (22.0-30.0); Creatinine Clearance Estimated 67 mL/min (50-200); Estimated Glomerular Filt Rate 41 ml/min (>60); GFR (African American) 50 ML/MIN (>60)
[2024-01-02 06:59] LABS: Glucose 457 mg/dl (74-100)
--- NOTE | 2024-01-02 07:00 | CA_ITS ---
APPROVED REPORT EXAM: Comprehensive 2D, Doppler, and color-flow Echocardiogram Client Resolution Specialist: Olivia Pete RVT Ht: 5 ft 7 in Wt: 227lbs BSA: 2.13 BP: 173/100 mmHg Indications: A-FIB,HX CM,COPD,CAD,MURMUR,EX SMOKER,CP,CHF,DM 2D Dimensions LA Volume 68.20 mL LA Volume Index 31.87 mL/m2 (M/F) 16-34 M-Mode Dimensions RVDd 3.40 cm (0.9-2.6) LA Diam 5.31 cm (1.9-4.0) LVDd 4.71 cm (3.5-5.7) LVDs 3.17 cm (3.5-5.7) IVSd 1.23 cm (0.6-1.1) PWd 0.54 cm (0.6-1.1) EF (Teich) 61.10% FS 32.70% EDV (Teich) 102.90 mL ESV (Teich) 40.00 mL Aortic Valve TAMMI Index 0.99 cm2/m2 AoV Peak Brett. 109.0 (50-130 cm/s) AO Peak GR. 4.70 mmHg AO Mean GR. 3.00 (<5 mmHg) AO VTI 20.9 (18-25 cm) TAMMI (VTI) 2.16 (2.5-4.5 cm2) Pulmonary Valve PV Peak Velocity 82.0 (50-150 cm/s) Tricuspid Valve TR P. Velocity 380.00 cm/s RAP Estimate 10.00 mmHg RVSP 67.90 mmHg Left Ventricle The left ventricle is normal size. The left ventricular systolic function is low normal. There is increased LV wall thickness. The septum is asynchronous. Diastolic function is indeterminate. LVEF is 50%. Right Ventricle Right ventricle is mildly dilated. The right ventricular systolic function is normal. Atria Left atrium is moderately dilated. Right atrium is mildly dilated. There is no Doppler evidence of interatrial shunt. Aortic Valve The aortic valve is mildly thickened. There is no aortic valvular stenosis. Trace aortic regurgitation. Mitral Valve The mitral valve leaflets are mildly thickened. No evidence of mitral valve stenosis. Mild mitral regurgitation. Tricuspid Valve The tricuspid valve leaflets are thin and pliable. Mild to moderate tricuspid regurgitation. RVSP is 40-45 mmHg. Pulmonic Valve The pulmonary valve is normal in structure. Trace pulmonic regurgitation. Great Vessels The aortic root is normal in size. The ascending aorta is not well-visualized. IVC is normal in size and collapses >50% with inspiration. Pericardium Small, anterior pericardial effusion is present. No echo indications of tamponade. An epicardial fat pad is also present. Other Information Study Quality: Technically Difficult Conclusion Technically difficult study due to poor acoustic windows. Low normal LV systolic function (LVEF 50%). Mild RV dilation with normal RV function. Biatrial dilation. Mild to moderate TR. Mild MR. RVSP 40-45 mmHg. Small, anterior pericardial effusion. No echo indications of tamponade. Electronically signed by : Torrie Orlando MD 01/03/2024 23:48:07
--- NOTE | 2024-01-02 08:04 | HMH.PHAINT1 ---
Pharmacy Intervention Comments: Home medications verified using list from pharmacy.
[2024-01-02 08:09] LABS: Hemoglobin A1C 10.4 % (4.0-6.0)
[2024-01-02] MEDS: FUROSEMIDE 40MG/4ML VIAL 40 MG IV ×2 (08:32→15:11)
[2024-01-02] MEDS: RIVAROXABAN 15MG TABLET 15 MG PO (08:32)
[2024-01-02] MEDS: IRBESARTAN 75MG TABLET 37.5 MG PO (08:32)
[2024-01-02] MEDS: SPIRONOLACTONE 25MG TABLET 25 MG PO (08:32)
[2024-01-02] MEDS: CLOPIDOGREL 75MG TAB 75 MG PO (08:33)
[2024-01-02] MEDS: predniSONE 20MG TAB 40 MG PO (08:33)
[2024-01-02] MEDS: METOPROLOL TARTRATE 50MG TABLET 100 MG PO (08:33)
[2024-01-02] MEDS: humaLOG MIX 75/25 3ML FLEXPEN 18 UNIT SQ ×2 (08:34→21:23)
[2024-01-02 08:52] LABS: Lymphocytes % 3 % (10-50); Neutrophils % 97 % (42-76); Platelet Estimate Normal; RBC Morphology Normal; Total Cells Counted 100
[2024-01-02 10:03] LABS: POC Glucose,Bedside 531 (70-110)
[2024-01-02] MEDS: humaLOG MIX 75/25 3ML FLEXPEN 20 UNIT SQ (10:12)
[2024-01-02] MEDS: clonazePAM 0.5MG TABLET 0.25 MG PO (10:16)
[2024-01-02 10:31] LABS: Glucose,Random 607 mg/dL (74-100)
[2024-01-02 12:15] LABS: POC Glucose,Bedside 473 (70-110)
[2024-01-02 14:24] LABS: POC Glucose,Bedside 505 (70-110)
[2024-01-02 15:19] LABS: Glucose,Random 533 mg/dL (74-100)
[2024-01-02] MEDS: INSULIN GLARGINE 100 UNITS/ML 10ML VIAL 15 UNIT SQ (15:27)
--- NOTE | 2024-01-02 16:48 | PC.NURSE ---
Pt. is aox4, up ad liu, fsbg achs which have been elevated this shift, 20g L AC SL, pt may be able to be d/c tomorrow if fsbg are more controlled.
--- NOTE | 2024-01-02 16:54 | EXP.PN ---
Subjective *Date: 01/02/24 *Time: 16:54 Exam Data for Last 24 hours Vital signs and Labs for Last 24 Hours: Temp Pulse Resp BP Pulse Ox O2 Del Method 98.2 F 130 H 18 131/80 99 Room Air 01/02/24 12:00 01/02/24 16:00 01/02/24 12:00 01/02/24 12:00 01/02/24 12:00 01/02/24 16:42 Laboratory Results - last 24 hr 01/01/24 19:26: VBG pH 7.28 L, VBG pCO2 54.9 H, VBG pO2 23.1 L, VBG HCO3 25.4, VBG Total CO2 27.1 H, VBG O2 Saturation 43.6 L, VBG Base Excess -1.3, VBG Lactic Acid 2.0 01/01/24 19:30: Chlamy pneumoniae PCR Not detected, Adenovirus (PCR) Not detected, B. pertussis DNA (PCR) Not detected, Coronavirus OC43 (PCR) Not detected, Coronavirus HKU1 (PCR) Not detected, Coronavirus 229E (PCR) Not detected, SARS-CoV-2 (PCR) Not detected, Coronavirus NL63 (PCR) Not detected, Human Metapneumovir PCR Not detected, Influenza A (H1) PCR Not detected, Influ A (H1N1/09) PCR Not detected, Influenza A (H3) PCR Not detected, Influenza Type A (PCR) Not detected, Influenza Type B (PCR) Not detected, M. pneumoniae (PCR) Not detected, Parainfluenza 1 (PCR) Not detected, Parainfluenza 2 (PCR) Not detected, Parainfluenza 3 (PCR) Not detected, Parainfluenza 4 (PCR) Not detected, RSV (PCR) Not detected, Entero/Rhino (PCR) Not detected 01/01/24 19:31: Lactate 1.5 01/01/24 19:33: WBC 12.7 H, RBC 5.28, Hgb 15.8, Hct 49.6 H, MCV 93.9, MCH 29.9, MCHC 31.8, RDW 14.8, Plt Count 227, MPV 8.3, Neut % (Auto) 75.2, Lymph % (Auto) 17.2, [place] % (Auto) 5.4, Eos % (Auto) 0.8, Baso % (Auto) 1.4, Neut # (Auto) 9.5 H, Lymph # (Auto) 2.2, [place] # (Auto) 0.7, Eos # (Auto) 0.1, Baso # (Auto) 0.2, Sodium 133 L, Potassium 4.4, Chloride 106, Carbon Dioxide 28, Anion Gap 3.4 L, BUN 25 H, Creatinine 1.10 H, Estimated Creat Clear 83, Estimated GFR 50 L, Est GFR ( Amer) 60, Glucose 222 H, Calcium 9.5, Magnesium 2.1, Total Bilirubin 0.9, AST 35, ALT 49, Alkaline Phosphatase 104, Troponin I < 0.01, NT-Pro-B Natriuret Pep 6580 H, Total Protein 7.2, Albumin 4.1, Globulin 3.1, Albumin/Globulin Ratio 1.3, Procalcitonin 0.067 01/01/24 22:43: Troponin I < 0.01 01/02/24 01:05: Troponin I < 0.01 01/02/24 05:22: WBC 9.0 D, RBC 4.75, Hgb 14.5, Hct 45.8, MCV 96.4, MCH 30.5, MCHC 31.6 L, RDW 15.1, Plt Count 160 D, MPV 8.5, Neut % (Auto) 90.1 H, Lymph % (Auto) 6.9 L, [place] % (Auto) 2.7, Eos % (Auto) 0.1, Baso % (Auto) 0.3, Neut # (Auto) 8.1 H, Lymph # (Auto) 0.6 L, [place] # (Auto) 0.2, Eos # (Auto) 0.0, Baso # (Auto) 0.0, Total Counted 100, Neutrophils % (Manual) 97 H, Lymphocytes % (Manual) 3 L, Platelet Estimate Normal, RBC Morphology Normal, Sodium 133 L, Potassium 5.1, Chloride 105, Carbon Dioxide 19 L, Anion Gap 14.1, BUN 28 H, Creatinine 1.30 H, Estimated Creat Clear 67, Estimated GFR 41 L, Est GFR ( Amer) 50 L, Glucose 457 H* D, Hemoglobin A1c 10.4 H, Calcium 9.0 01/02/24 06:11: POC Glucose 410 H* 01/02/24 09:53: POC Glucose 531 H* 01/02/24 10:05: Random Glucose 607 H* 01/02/24 12:09: POC Glucose 473 H* 01/02/24 14:17: POC Glucose 505 H* 01/02/24 14:35: Random Glucose 533 H* I & O for Last 24 hours: Intake & Output 12/30/23 12/31/23 01/01/24 01/02/24 23:59 23:59 23:59 23:59 Intake Total 920 / 920 Output Total 0 / 0 0 / 0 Balance 0 / 0 920 / 920 Weight 99.382 kg 98.883 kg Constitutional Constitutional: no acute distress *Routine HEENT Exam Head: Present normocephalic Eye: Present EOMI and PERRL ENT: Present mucous membranes moist *Routine Neck Exam Neck: Present supple; Absent lymphadenopathy *Routine Respiratory Exam Respiratory: Present wheezes; Absent CTA bilaterally Comments: Mild wheezing. *Routine Cardiovascular Exam Cardiovascular: Present RRR *Routine Abdominal Exam Abdominal: Present soft and normoactive bowel sounds; Absent tenderness *Routine Extremities Exam Extremities: Present edema; Absent cyanosis or clubbing Comments: Trace lower extremity edema *Routine Skin Exam Skin: Present warm; Absent rash *Routine Neurological Exam Neurological: Present alert and oriented X3 Assessment and Plan *Assessment and plan (1) Acute exacerbation of CHF (congestive heart failure): Status: Acute Qualifiers: Heart failure type: combined systolic and diastolic Qualified Code(s): I50.43 - Acute on chronic combined systolic (congestive) and diastolic (congestive) heart failure Category: Medical Code(s): I50.9 - Heart failure, unspecified (2) Pulmonary edema: Status: Acute Category: Medical Code(s): J81.1 - Chronic pulmonary edema (3) Atrial fibrillation with rapid ventricular response: Status: Acute Category: Medical Code(s): I48.91 - Unspecified atrial fibrillation (4) COPD exacerbation: Status: Acute Category: Medical Code(s): J44.1 - Chronic obstructive pulmonary disease with (acute) exacerbation (5) Community acquired pneumonia: Status: Acute Category: Medical Code(s): J18.9 - Pneumonia, unspecified organism (6) Anxiety: Status: Acute Category: Medical Code(s): F41.9 - Anxiety disorder, unspecified (7) Smoking greater than 30 pack years: Status: Acute Category: Social Hx Code(s): F17.210 - Nicotine dependence, cigarettes, uncomplicated (8) Diastolic CHF: Status: Acute Category: Medical Code(s): I50.30 - Unspecified diastolic (congestive) heart failure (9) Diabetes: Status: Acute Category: Medical Code(s): E11.9 - Type 2 diabetes mellitus without complications (10) HTN (hypertension): Status: Chronic Qualifiers: Hypertension type: essential hypertension Qualified Code(s): I10 - Essential (primary) hypertension Category: Medical Code(s): I10 - Essential (primary) hypertension Plan Assessment: This is a 63-year-old female being admitted for acute hypoxic respiratory failure likely secondary to combined COPD and CHF exacerbation. On my exam, patient is sitting up in bed in no acute distress. On 2 L nasal cannula, O2 sats in the low to mid 90s. No complaints. Acute hypoxic respiratory failure COPD exacerbation #Suspected community-acquired pneumonia -Maintain SpO2 greater than 90%, supplemental oxygen as needed. Patient wears 2 L nasal cannula as needed at home. Is requiring 2 L nasal cannula here. Please wean oxygen as tolerated. ? CXR suggestive of left-sided pneumonia versus pneumonitis, pleural effusion. Respiratory panel negative. WBC ? Ceftriaxone, azithromycin day 2/5. ? DuoNebs scheduled to every 6 hours and as needed. ? Started Trelegy 100. Holding home Advair. ? Will hold off on steroids for now given stable exam and hyperglycemia in the 500s. She was given dexamethasone 10 mg in the ED. HFpEF exacerbation -CXR indicates diffuse pulmonary edema. BNP elevated to 6580 on admission. ? IV Lasix 40 mg twice daily scheduled. Making good urine output. ? Follow-up repeat ECHO. last TTE was done approximately a year ago. Patient with diastolic dysfunction, LVEF appeared to be approximately 50%. ? Will consult cardiology if concerning findings on echo. Troponins negative. -1500 cc fluid restriction -Continue Aldactone -Daily weights -Heart healthy carb consistent diet IDDM #Hyperglycemia ?Hemoglobin A1c 10.4%. ?Patient is having significant hyperglycemia in the 400s to 500s. She was given dexamethasone 10 mg in the ED. Will hold off on steroids for this time. ? Scheduled home Lantus 10 units nightly, 70/30 insulin 18 units twice daily. Farxiga 10 mg. ? However, received additional total 40 units SSI, 20 units 70/30, and 15 units of Lantus today given blood sugars continue to be in the 400s and 500s - Continue SSI, ACHS glucose checks. A-fib -Rate controlled at this time, patient received Cardizem in the ER -Continue metoprolol and Xarelto CAD status post 2 stents -Continue Plavix, Xarelto, valsartan, statin Anxiety -Continue Klonopin as needed Tobacco abuse -Nicotine patch as needed -Tobacco cessation counseling given DVT prophylaxis: Dinorah CODE STATUS: Full code Surrogate decision maker: Colten [phone] Skin: Low risk Estimated length of stay: Greater than 2 midnights
[2024-01-02] MEDS: AZITHROMYCIN 500 MG in 0.9 % SODIUM CHLORIDE 250 ML 250 MG IV (20:10)
[2024-01-02 20:31] LABS: POC Glucose,Bedside 506 (70-110)
[2024-01-02 20:56] LABS: Glucose,Random 580 mg/dL (74-100)
[2024-01-02] MEDS: ATORVASTATIN 40MG TABLET 80 MG PO (21:17)
[2024-01-02] MEDS: humaLOG 100 UNITS/ML 10ML VIAL (SSI) 10 UNIT SQ (21:23)
[2024-01-02] MEDS: PANTOPRAZOLE 40MG TABLET 40 MG PO (21:23)
[2024-01-02] MEDS: INSULIN GLARGINE 100 UNITS/ML 3ML FLEXPEN 20 UNIT SQ (21:24)
[2024-01-02] MEDS: ACETAMINOPHEN 325MG TAB 650 MG PO (21:26)
[2024-01-02] MEDS: NICOTINE 21MG/24HR PATCH 21 MG TD (21:26)
[2024-01-02] MEDS: CEFTRIAXONE SODIUM 1 GM in 0.9 % SODIUM CHLORIDE 50 ML IV (22:12)
[2024-01-03] VITALS (11 sets, daily range): BP systolic 119–145; BP diastolic 65–93; PULSE 77–150; RESP 16–21; TEMP 36.4–36.8; O2SAT 91–98; BMI 34.8
[2024-01-03] MEDS: IPRATROPIUM/ALBUTEROL 3 ML NEB IH ×4 (00:04→18:44)
--- NOTE | 2024-01-03 05:27 | PC.NURSE ---
Pt is A&OX4 and has tolerated room air. She has ambulated to the bathroom independently. Blood sugar has been elevated at 506 @2100. She has complained of headache once and was medicated per MAY. Nicotine patch placed to left upper arm. Currently sitting up in bed with no complaints at this time.
[2024-01-03 05:56] LABS: POC Glucose,Bedside 319 (70-110)
[2024-01-03] MEDS: humaLOG 100 UNITS/ML 10ML VIAL (SSI) SQ ×4 (05:56→21:05)
[2024-01-03] MEDS: SPIRONOLACTONE 25MG TABLET 25 MG PO (07:50)
[2024-01-03] MEDS: FUROSEMIDE 40MG/4ML VIAL 40 MG IV (07:50)
[2024-01-03] MEDS: CLOPIDOGREL 75MG TAB 75 MG PO (07:50)
[2024-01-03] MEDS: RIVAROXABAN 15MG TABLET 15 MG PO (07:51)
[2024-01-03] MEDS: DAPAGLIFLOZIN PROPANEDIOL 10 MG TABLET PO (07:51)
[2024-01-03] MEDS: IRBESARTAN 75MG TABLET 37.5 MG PO (07:51)
[2024-01-03] MEDS: METOPROLOL TARTRATE 50MG TABLET 100 MG PO ×2 (07:51→12:22)
[2024-01-03] MEDS: humaLOG MIX 75/25 3ML FLEXPEN 18 UNIT SQ ×2 (07:52→21:06)
[2024-01-03] MEDS: ACETAMINOPHEN 325MG TAB 650 MG PO (07:58)
[2024-01-03] MEDS: clonazePAM 0.5MG TABLET 0.25 MG PO (08:29)
[2024-01-03 08:43] LABS: Basophils # 0.1 K/mm3 (0-0.2); Basophils % 0.5 % (0.1-2.0); Eosinophils # 0.1 K/mm3 (0.0-0.4); Eosinophils % 0.4 % (0.1-12.0); Hematocrit 45.9 % (37.0-47.0); Hemoglobin 14.7 g/dL (12.2-16.2); Lymphocytes # 1.1 K/mm3 (0.7-4.5); Lymphocytes % 6.7 % (10-50); Mean Corpuscular HGB Conc 32.1 g/dL (31.8-35.4); Mean Corpuscular Hemoglobin 30.4 pg (27.0-31.2); Mean Corpuscular Volume 94.6 fl (81-99); Mean Platelet Volume 8.4 fl (7.4-10.4); Monocytes # 0.8 K/mm3 (0.1-1.0); Monocytes % 4.6 % (1.7-9.3); Neutrophils # 14.6 K/mm3 (1.8-7.8); Neutrophils % 87.9 % (37.0-80.0); Platelet Count 187 K/mm3 (142-424); Red Blood Count 4.85 M/mm3 (4.20-5.40); Red Cell Distribution Width 15.1 % (11.5-17.5); White Blood Count 16.6 K/mm3 (4.8-10.8)
[2024-01-03 08:46] LABS: MANUAL DIFFERENTIAL MANUAL DIFFERENTIAL (MANUAL DIFF)
[2024-01-03] MEDS: FLUTICASONE/UMECLIDIN/VILANTER 100/62.5/25MCG INHALER 1 PUFF IH (09:16)
[2024-01-03 09:34] LABS: Chloride 101 mmol/L (98-107); Sodium 133 mmol/L (136-145)
[2024-01-03 09:37] LABS: Blood Urea Nitrogen 49 mg/dl (7-17); Calcium 9.7 mg/dl (8.4-10.2); Carbon Dioxide 21 mmol/L (22.0-30.0); Creatinine Clearance Estimated 56 mL/min (50-200); Estimated Glomerular Filt Rate 32 ml/min (>60); GFR (African American) 39 ML/MIN (>60); Glucose 368 mg/dl (74-100)
[2024-01-03 09:53] LABS: POC Glucose,Bedside 355 (70-110)
--- NOTE | 2024-01-03 11:26 | XR_ITS ---
PROCEDURE INFORMATION: Exam: XR Chest Exam date and time: 01/03/2024 11:37 AM Age: 63 years old Clinical indication: Shortness of breath; Additional info: SOB TECHNIQUE: Imaging protocol: Radiologic exam of the chest. Views: 1 view. COMPARISON: CR XR CHEST PORTABLE 01/01/2024 7:53 PM FINDINGS: Lungs: The lungs are now clear. The reticular opacities these of the lung bases seen at the time of the previous study have resolved. Pleural spaces: Unremarkable. No pleural effusion. No pneumothorax. Heart/Mediastinum: Stable mild cardiomegaly. Bones/joints: Unremarkable. Soft tissues: There are surgical clips in the right axilla. IMPRESSION: 1. Stable cardiomegaly. 2. The lungs are now clear. The previously identified infiltrates have resolved.
[2024-01-03] MEDS: INSULIN GLARGINE 100 UNITS/ML 10ML VIAL 15 UNIT SQ (11:48)
[2024-01-03 12:07] LABS: Lymphocytes % 16 % (10-50); Monocytes % 3 % (2-9); Neutrophils % 81 % (42-76); Total Cells Counted 100
[2024-01-03 12:08] LABS: Platelet Estimate Normal; RBC Morphology Normal
[2024-01-03 15:07] LABS: POC Glucose,Bedside 301 (70-110)
--- NOTE | 2024-01-03 15:30 | PC.NURSE ---
Give 15 units of ssi instead of the 12 units per MD.
[2024-01-03] MEDS: BUMETANIDE 1 MG TABLET PO (15:33)
[2024-01-03 16:12] LABS: Chloride 104 mmol/L (98-107); Sodium 135 mmol/L (136-145)
[2024-01-03 16:15] LABS: POC Glucose,Bedside 285 (70-110)
[2024-01-03 16:15] LABS: Blood Urea Nitrogen 52 mg/dl (7-17); Calcium 9.8 mg/dl (8.4-10.2); Carbon Dioxide 23 mmol/L (22.0-30.0); Creatinine Clearance Estimated 50 mL/min (50-200); Estimated Glomerular Filt Rate 28 ml/min (>60); GFR (African American) 34 ML/MIN (>60); Glucose 279 mg/dl (74-100)
[2024-01-03 16:19] LABS: Basophils % 0.3 % (0.1-2.0); Eosinophils % 0.3 % (0.1-12.0); Hemoglobin 14.3 g/dL (12.2-16.2); Lymphocytes # 1.7 K/mm3 (0.7-4.5); Lymphocytes % 10.6 % (10-50); Mean Corpuscular HGB Conc 32.5 g/dL (31.8-35.4); Mean Corpuscular Hemoglobin 29.8 pg (27.0-31.2); Mean Corpuscular Volume 91.5 fl (81-99); Mean Platelet Volume 8.3 fl (7.4-10.4); Monocytes # 0.5 K/mm3 (0.1-1.0); Monocytes % 3.4 % (1.7-9.3); Neutrophils # 13.7 K/mm3 (1.8-7.8); Neutrophils % 85.6 % (37.0-80.0); Platelet Count 227 K/mm3 (142-424); Red Cell Distribution Width 15.2 % (11.5-17.5)
--- NOTE | 2024-01-03 17:18 | EXP.PN ---
Subjective *Date: 01/03/24 *Time: 17:18 Interval history: Patient states she feels better today, breathing has improved. However patient continues to have hyperglycemia, with worsening kidney function. Anticipate discharge tomorrow as this continues to resolve. Exam Data for Last 24 hours Vital signs and Labs for Last 24 Hours: Temp Pulse Resp BP Pulse Ox O2 Del Method 97.9 F 88 19 119/65 93 L Room Air 01/03/24 12:00 01/03/24 12:57 01/03/24 12:00 01/03/24 12:00 01/03/24 12:00 01/03/24 13:56 Laboratory Results - last 24 hr 01/02/24 20:13: POC Glucose 506 H* 01/02/24 20:32: Random Glucose 580 H* 01/03/24 05:46: POC Glucose 319 H* 01/03/24 08:25: WBC 16.6 H D, RBC 4.85, Hgb 14.7, Hct 45.9, MCV 94.6, MCH 30.4, MCHC 32.1, RDW 15.1, Plt Count 187, MPV 8.4, Neut % (Auto) 87.9 H, Lymph % (Auto) 6.7 L, Hendry % (Auto) 4.6, Eos % (Auto) 0.4, Baso % (Auto) 0.5, Neut # (Auto) 14.6 H, Lymph # (Auto) 1.1, Hendry # (Auto) 0.8, Eos # (Auto) 0.1, Baso # (Auto) 0.1, Total Counted 100, Neutrophils % (Manual) 81 H, Lymphocytes % (Manual) 16, Monocytes % (Manual) 3, Platelet Estimate Normal, RBC Morphology Normal, Sodium 133 L, Potassium 5.0, Chloride 101, Carbon Dioxide 21 L, Anion Gap 16.0 H, BUN 49 H D, Creatinine 1.60 H D, Estimated Creat Clear 56, Estimated GFR 32 L, Est GFR ( Amer) 39 L D, Glucose 368 H, Calcium 9.7 01/03/24 09:42: POC Glucose 355 H* 01/03/24 15:00: POC Glucose 301 H* 01/03/24 15:56: WBC 16.0 H, RBC 4.80, Hgb 14.3, Hct 44.0, MCV 91.5, MCH 29.8, MCHC 32.5, RDW 15.2, Plt Count 227, MPV 8.3, Neut % (Auto) 85.6 H, Lymph % (Auto) 10.6, Hendry % (Auto) 3.4, Eos % (Auto) 0.3, Baso % (Auto) 0.3, Neut # (Auto) 13.7 H, Lymph # (Auto) 1.7, Hendry # (Auto) 0.5, Eos # (Auto) 0.0, Baso # (Auto) 0.0, Sodium 135 L, Potassium 5.0, Chloride 104, Carbon Dioxide 23, Anion Gap 13.0, BUN 52 H, Creatinine 1.80 H, Estimated Creat Clear 50, Estimated GFR 28 L, Est GFR ( Amer) 34 L, Glucose 279 H D, Calcium 9.8 01/03/24 16:08: POC Glucose 285 H I & O for Last 24 hours: Intake & Output 12/31/23 01/01/24 01/02/24 01/03/24 23:59 23:59 23:59 23:59 Intake Total 1370 / 1670 840 / 840 Output Total 0 / 0 0 / 0 0 / 0 Balance 0 / 0 1370 / 1670 840 / 840 Weight 99.382 kg 98.883 kg 100.652 kg Microbiology Reports for the Last 24 Hours: Microbiology 01/01/24 21:35 Blood Blood Culture - Preliminary NO GROWTH AFTER 24 HOURS 01/01/24 19:31 Blood Blood Culture - Preliminary NO GROWTH AFTER 24 HOURS Constitutional Constitutional: no acute distress *Routine HEENT Exam Head: Present normocephalic Eye: Present EOMI and PERRL ENT: Present mucous membranes moist *Routine Neck Exam Neck: Present supple; Absent lymphadenopathy *Routine Respiratory Exam Respiratory: Present wheezes; Absent CTA bilaterally Comments: Mild wheezing. *Routine Cardiovascular Exam Cardiovascular: Present RRR *Routine Abdominal Exam Abdominal: Present soft and normoactive bowel sounds; Absent tenderness *Routine Extremities Exam Extremities: Present edema; Absent cyanosis or clubbing Comments: Trace lower extremity edema *Routine Skin Exam Skin: Present warm; Absent rash *Routine Neurological Exam Neurological: Present alert and oriented X3 Assessment and Plan *Assessment and plan (1) Acute exacerbation of CHF (congestive heart failure): Status: Acute Qualifiers: Heart failure type: combined systolic and diastolic Qualified Code(s): I50.43 - Acute on chronic combined systolic (congestive) and diastolic (congestive) heart failure Category: Medical Code(s): I50.9 - Heart failure, unspecified (2) Pulmonary edema: Status: Acute Category: Medical Code(s): J81.1 - Chronic pulmonary edema (3) Atrial fibrillation with rapid ventricular response: Status: Acute Category: Medical Code(s): I48.91 - Unspecified atrial fibrillation (4) COPD exacerbation: Status: Acute Category: Medical Code(s): J44.1 - Chronic obstructive pulmonary disease with (acute) exacerbation (5) Community acquired pneumonia: Status: Acute Category: Medical Code(s): J18.9 - Pneumonia, unspecified organism (6) Anxiety: Status: Acute Category: Medical Code(s): F41.9 - Anxiety disorder, unspecified (7) Smoking greater than 30 pack years: Status: Acute Category: Social Hx Code(s): F17.210 - Nicotine dependence, cigarettes, uncomplicated (8) Diastolic CHF: Status: Acute Category: Medical Code(s): I50.30 - Unspecified diastolic (congestive) heart failure (9) Diabetes: Status: Acute Category: Medical Code(s): E11.9 - Type 2 diabetes mellitus without complications (10) HTN (hypertension): Status: Chronic Qualifiers: Hypertension type: essential hypertension Qualified Code(s): I10 - Essential (primary) hypertension Category: Medical Code(s): I10 - Essential (primary) hypertension Plan Assessment: This is a 63-year-old female being admitted for acute hypoxic respiratory failure likely secondary to combined COPD and CHF exacerbation. On my exam, patient is sitting up in bed in no acute distress. On 2 L nasal cannula, O2 sats in the low to mid 90s. No complaints. Patient continues to have hyperglycemia, with worsening kidney function. Anticipate discharge tomorrow as this continues to resolve. Acute hypoxic respiratory failure COPD exacerbation #Suspected community-acquired pneumonia -Maintain SpO2 greater than 90%, supplemental oxygen as needed. Patient wears 2 L nasal cannula as needed at home. Is requiring 2 L nasal cannula here. Please wean oxygen as tolerated. ? CXR suggestive of left-sided pneumonia versus pneumonitis, pleural effusion. Respiratory panel negative. WBC ? Back to baseline, saturating appropriate on room air. ? Ceftriaxone, azithromycin day 3/. ? DuoNebs scheduled to every 6 hours and as needed. ? Started Trelegy 100. Holding home Advair. ? Will hold off on steroids for now given stable exam and hyperglycemia in the 500s. She was given dexamethasone 10 mg in the ED. HFpEF exacerbation -CXR indicates diffuse pulmonary edema. BNP elevated to 6580 on admission. ? Fluid status significantly improved today. ? Started home Bumex 1 mg twice daily, discontinued IV Lasix 40 mg twice daily. ? Follow-up repeat ECHO. last TTE was done approximately a year ago. Patient with diastolic dysfunction, LVEF appeared to be approximately 50%. ? Will consult cardiology if concerning findings on echo. Troponins negative. -1500 cc fluid restriction -Continue Aldactone -Daily weights -Heart healthy carb consistent diet #OLGA on CKD stage III ? Creatinine today 1.8, baseline around 1.1. ? Likely secondary to HFpEF third spacing and aggressive IV diuresis. ? Transition to p.o. diuresis today. ? Follow-up morning BMP. IDDM #Hyperglycemia ?Hemoglobin A1c 10.4%. ?Patient was having significant hyperglycemia in the 400s to 500s. She was given dexamethasone 10 mg in the ED. Will hold off on steroids for this time. ? Hyperglycemia improved today to the 300s. ? Scheduled home Lantus 20 units (increased from 10) nightly, 70/30 insulin 18 units twice daily. Farxiga 10 mg. - Continue SSI, ACHS glucose checks. A-fib -Rate controlled at this time, patient received Cardizem in the ER -Continue metoprolol and Xarelto CAD status post 2 stents -Continue Plavix, Xarelto, valsartan, statin Anxiety -Continue Klonopin as needed Tobacco abuse -Nicotine patch as needed -Tobacco cessation counseling given DVT prophylaxis: Xarelto CODE STATUS: Full code Surrogate decision maker: Colten [phone] Skin: Low risk Estimated length of stay: Greater than 2 midnights
[2024-01-03 20:09] LABS: POC Glucose,Bedside 363 (70-110)
[2024-01-03] MEDS: ATORVASTATIN 40MG TABLET 80 MG PO (21:05)
[2024-01-03] MEDS: AZITHROMYCIN 500 MG in 0.9 % SODIUM CHLORIDE 250 ML 250 MG IV (21:05)
[2024-01-03] MEDS: PANTOPRAZOLE 40MG TABLET 40 MG PO (21:05)
[2024-01-03] MEDS: INSULIN GLARGINE 100 UNITS/ML 3ML FLEXPEN 20 UNIT SQ (21:07)
[2024-01-03] MEDS: CEFTRIAXONE SODIUM 1 GM in 0.9 % SODIUM CHLORIDE 50 ML IV (22:41)
[2024-01-04] VITALS (7 sets, daily range): BP systolic 123–128; BP diastolic 72–80; PULSE 82–140; RESP 18–19; TEMP 36.4–36.6; O2SAT 95–98; BMI 34.5
[2024-01-04] MEDS: IPRATROPIUM/ALBUTEROL 3 ML NEB IH ×3 (00:46→11:51)
[2024-01-04] MEDS: ACETAMINOPHEN 325MG TAB 650 MG PO (05:14)
[2024-01-04 05:45] LABS: POC Glucose,Bedside 145 (70-110)
--- NOTE | 2024-01-04 06:20 | PC.NURSE ---
Pt A&OX4 and has tolerated room air. Blood sugar was 363 last night and 145 this morning. She has ambulated to the bathroom independently. She did complain of a headache once this shift and was medicated per MAR. No other complaints at this time, call light within reach.
[2024-01-04] MEDS: FLUTICASONE/UMECLIDIN/VILANTER 100/62.5/25MCG INHALER 1 PUFF IH (06:45)
[2024-01-04 07:05] LABS: Basophils # 0.1 K/mm3 (0-0.2); Basophils % 0.4 % (0.1-2.0); Chloride 103 mmol/L (98-107); Eosinophils # 0.1 K/mm3 (0.0-0.4); Eosinophils % 0.4 % (0.1-12.0); Hematocrit 45.3 % (37.0-47.0); Hemoglobin 14.8 g/dL (12.2-16.2); Lymphocytes # 3.1 K/mm3 (0.7-4.5); Lymphocytes % 23.2 % (10-50); Mean Corpuscular HGB Conc 32.6 g/dL (31.8-35.4); Mean Corpuscular Hemoglobin 30.9 pg (27.0-31.2); Mean Corpuscular Volume 94.6 fl (81-99); Mean Platelet Volume 8.2 fl (7.4-10.4); Monocytes # 0.7 K/mm3 (0.1-1.0); Monocytes % 5.4 % (1.7-9.3); Neutrophils # 9.5 K/mm3 (1.8-7.8); Neutrophils % 70.7 % (37.0-80.0); Platelet Count 222 K/mm3 (142-424); Red Blood Count 4.79 M/mm3 (4.20-5.40); Red Cell Distribution Width 15.2 % (11.5-17.5); White Blood Count 13.4 K/mm3 (4.8-10.8)
[2024-01-04 07:06] LABS: Potassium 4.9 mmoL/L (3.5-5.1); Sodium 137 mmol/L (136-145)
[2024-01-04 07:09] LABS: Anion Gap 11.9 mEq/L (5-15); Blood Urea Nitrogen 54 mg/dl (7-17); Calcium 9.7 mg/dl (8.4-10.2); Carbon Dioxide 27 mmol/L (22.0-30.0); Creatinine Clearance Estimated 52 mL/min (50-200); Estimated Glomerular Filt Rate 30 ml/min (>60); GFR (African American) 36 ML/MIN (>60); Glucose 172 mg/dl (74-100)
[2024-01-04] MEDS: SPIRONOLACTONE 25MG TABLET 25 MG PO (09:13)
[2024-01-04] MEDS: METOPROLOL TARTRATE 50MG TABLET 100 MG PO (09:13)
[2024-01-04] MEDS: BUMETANIDE 1 MG TABLET PO (09:13)
[2024-01-04] MEDS: RIVAROXABAN 15MG TABLET 15 MG PO (09:13)
[2024-01-04] MEDS: IRBESARTAN 75MG TABLET 37.5 MG PO (09:13)
[2024-01-04] MEDS: DAPAGLIFLOZIN PROPANEDIOL 10 MG TABLET PO (09:13)
[2024-01-04] MEDS: CLOPIDOGREL 75MG TAB 75 MG PO (09:13)
[2024-01-04] MEDS: humaLOG MIX 75/25 3ML FLEXPEN 18 UNIT SQ (09:14)
--- NOTE | 2024-01-04 10:33 | EXP.DC.SUM ---
General Admission date:: 01/01/24 HPI HPI HPI: Stephanie Kulkarni is a 63-year-old female past medical history significant for CHF, type 2 diabetes, [facility] on Xarelto, COPD, anxiety, PAD, renal artery stenosis, CAD status post 2 stents, HTN who presents emergency room tonight with complaints of generalized malaise, fatigue, and shortness of breath. Ms. Kulkarni states her symptoms started today. Reports she began coughing up yellow-colored sputum today. Reports subjective fever with muscle aches and chills at home. States she just overall feels very poorly. Reports compliance with her diuretics. Denies any recent weight gain, no swelling in her legs or feet. Does wear oxygen as needed at home, typically just uses 2 L if she is feeling short of breath. Denies any headache, chest pain, abdominal pain, bowel or bladder dysfunction. No focal neurodeficits noted. No known sick contacts. Reports compliance with her Xarelto. Continues to smoke, smokes about a pack of cigarettes per day. Denies any alcohol or illicit drug use. Lab work in the ER showed an elevated white count of 12.7 thousand, BUN and creatinine elevated at 25 and 1.1, baseline appears to be around 1.6 but that is from over a year ago. Lactic acid was 1.5. VBG showed a pH of 7.2, pCO2 of 54, pO2 of 23 with a bicarb of 25. BNP elevated at 6580. Patient initially presented to the emergency room in [facility] with RVR, tachypneic, SpO2 sat in the upper 80s to low 90s, with a temperature of 99.4 ?F. Patient was placed on 2 L nasal cannula and given DuoNebs, diltiazem for rate control, as well as Lasix. Was also given steroids, and started on azithromycin and Rocephin. Checks x-ray showed fluid overload with questionable left lower lobe effusion versus consolidation. Be admitted to the hospitalist service for acute hypoxic respiratory failure secondary to combined COPD and CHF exacerbation. Hospital Course Hospital Course Hospital Course: Feeling much better. Hypoglycemia resolved. COPD exacerbation resolved without need for steroids on discharge. Sent home with cefdinir and azithromycin for 2 more days. Assessment: This is a 63-year-old female being admitted for acute hypoxic respiratory failure likely secondary to combined COPD and CHF exacerbation. On my exam, patient is sitting up in bed in no acute distress. On 2 L nasal cannula, O2 sats in the low to mid 90s. No complaints. Patient continues to have hyperglycemia, with worsening kidney function. Anticipate discharge tomorrow as this continues to resolve. Acute hypoxic respiratory failure Mild COPD exacerbation #Suspected community-acquired pneumonia ? CXR suggestive of left-sided pneumonia versus pneumonitis, pleural effusion. Respiratory panel negative. WBC ? Back to baseline, after 2 days of steroids and treatemtn of HFpEF as below. Steroids were not continued beyond 2 days as back to baseline and hyperglycemia. ? Improved with ceftriaxone, azithromycin for 4 days, duonebs, Trelegy. On room air with appropriate saturations. HFpEF exacerbation - CXR indicatesddiffuse pulmonary edema. BNP elevated to 6580 on admission. - Improved with IV Lasix, trasitioned back to home Bumex 1mg BID. ? Follow-up repeat ECHO Low normal LV systolic function (LVEF 50%), stable from last ECHO 1 year ago. - Continue home Aldactone. IDDM #Hyperglycemia ?Hemoglobin A1c 10.4%. ?Patient was having significant hyperglycemia in the 400s to 500s. She was given dexamethasone 10 mg in the ED. Stopped steroids after day 2. - Hospital course was complicated, and discharge delayed, due to hyperglycemia inspite of aggressively adding Lantus and SSI, ? Gradually improved to 172 this morning. ? Continue home Lantus 10u nightly, 70/30 insulin 18 units twice daily. Farxiga 10 mg. #OLGA on CKD stage III ? Creatinine today 1.8, baseline around 1.1. ? Likely secondary to HFpEF third spacing and aggressive IV diuresis. - Improved to 1.7 after trasnitioned to home PO Bumex. - Will follow-up with PCP within 1 week. A-fib -Rate controlled at this time, patient received Cardizem in the ER -Continue metoprolol and Xarelto CAD status post 2 stents -Continue Plavix, Xarelto, valsartan, statin Anxiety -Continue Klonopin as needed Tobacco abuse -Nicotine patch as needed -Tobacco cessation counseling given Exam Data for Last 24 hours Vital signs and Labs for Last 24 Hours: Temp Pulse Resp BP Pulse Ox O2 Del Method 97.6 F 82 19 128/72 95 Room Air 01/04/24 08:00 01/04/24 08:00 01/04/24 08:00 01/04/24 08:00 01/04/24 08:00 01/04/24 09:00 Laboratory Results - last 24 hr 01/03/24 08:25: Total Counted 100, Neutrophils % (Manual) 81 H, Lymphocytes % (Manual) 16, Monocytes % (Manual) 3, Platelet Estimate Normal, RBC Morphology Normal 01/03/24 15:00: POC Glucose 301 H* 01/03/24 15:56: WBC 16.0 H, RBC 4.80, Hgb 14.3, Hct 44.0, MCV 91.5, MCH 29.8, MCHC 32.5, RDW 15.2, Plt Count 227, MPV 8.3, Neut % (Auto) 85.6 H, Lymph % (Auto) 10.6, Davis % (Auto) 3.4, Eos % (Auto) 0.3, Baso % (Auto) 0.3, Neut # (Auto) 13.7 H, Lymph # (Auto) 1.7, Davis # (Auto) 0.5, Eos # (Auto) 0.0, Baso # (Auto) 0.0, Sodium 135 L, Potassium 5.0, Chloride 104, Carbon Dioxide 23, Anion Gap 13.0, BUN 52 H, Creatinine 1.80 H, Estimated Creat Clear 50, Estimated GFR 28 L, Est GFR ( Amer) 34 L, Glucose 279 H D, Calcium 9.8 01/03/24 16:08: POC Glucose 285 H 01/03/24 20:02: POC Glucose 363 H* 01/04/24 05:36: POC Glucose 145 H 01/04/24 06:15: WBC 13.4 H, RBC 4.79, Hgb 14.8, Hct 45.3, MCV 94.6, MCH 30.9, MCHC 32.6, RDW 15.2, Plt Count 222, MPV 8.2, Neut % (Auto) 70.7, Lymph % (Auto) 23.2, Davis % (Auto) 5.4, Eos % (Auto) 0.4, Baso % (Auto) 0.4, Neut # (Auto) 9.5 H, Lymph # (Auto) 3.1, Davis # (Auto) 0.7, Eos # (Auto) 0.1, Baso # (Auto) 0.1, Sodium 137, Potassium 4.9, Chloride 103, Carbon Dioxide 27, Anion Gap 11.9, BUN 54 H, Creatinine 1.70 H, Estimated Creat Clear 52, Estimated GFR 30 L, Est GFR ( Amer) 36 L, Glucose 172 H D, Calcium 9.7 I & O for Last 24 hours: Intake & Output 01/01/24 01/02/24 01/03/24 01/04/24 23:59 23:59 23:59 23:59 Intake Total 1370 / 1670 1070 / 1570 1430 / 1430 Output Total 0 / 0 0 / 0 0 / 0 Balance 0 / 0 1370 / 1670 1070 / 1570 1430 / 1430 Weight 99.382 kg 98.883 kg 100.652 kg 99.79 kg Microbiology Reports for the Last 24 Hours: Microbiology 01/01/24 21:35 Blood Blood Culture - Preliminary NO GROWTH AFTER 48 HOURS 01/01/24 19:31 Blood Blood Culture - Preliminary NO GROWTH AFTER 48 HOURS Results Data Completed and Pending Labs on day of discharge: Labs from last 24 hours 01/04/24 01/04/24 01/03/24 06:15 05:36 20:02 WBC 13.4 H RBC 4.79 Hgb 14.8 Hct 45.3 MCV 94.6 MCH 30.9 MCHC 32.6 RDW 15.2 Plt Count 222 MPV 8.2 Neut % (Auto) 70.7 Lymph % (Auto) 23.2 Davis % (Auto) 5.4 Eos % (Auto) 0.4 Baso % (Auto) 0.4 Neut # (Auto) 9.5 H Lymph # (Auto) 3.1 Davis # (Auto) 0.7 Eos # (Auto) 0.1 Baso # (Auto) 0.1 Total Counted Neutrophils % (Manual) Lymphocytes % (Manual) Monocytes % (Manual) Platelet Estimate RBC Morphology Sodium 137 Potassium 4.9 Chloride 103 Carbon Dioxide 27 Anion Gap 11.9 BUN 54 H Creatinine 1.70 H Estimated Creat Clear 52 Estimated GFR 30 L Est GFR ( Amer) 36 L Glucose 172 H D POC Glucose 145 H 363 H* Calcium 9.7 01/03/24 01/03/24 01/03/24 16:08 15:56 15:00 WBC 16.0 H RBC 4.80 Hgb 14.3 Hct 44.0 MCV 91.5 MCH 29.8 MCHC 32.5 RDW 15.2 Plt Count 227 MPV 8.3 Neut % (Auto) 85.6 H Lymph % (Auto) 10.6 Davis % (Auto) 3.4 Eos % (Auto) 0.3 Baso % (Auto) 0.3 Neut # (Auto) 13.7 H Lymph # (Auto) 1.7 Davis # (Auto) 0.5 Eos # (Auto) 0.0 Baso # (Auto) 0.0 Total Counted Neutrophils % (Manual) Lymphocytes % (Manual) Monocytes % (Manual) Platelet Estimate RBC Morphology Sodium 135 L Potassium 5.0 Chloride 104 Carbon Dioxide 23 Anion Gap 13.0 BUN 52 H Creatinine 1.80 H Estimated Creat Clear 50 Estimated GFR 28 L Est GFR ( Amer) 34 L Glucose 279 H D POC Glucose 285 H 301 H* Calcium 9.8 01/03/24 08:25 WBC RBC Hgb Hct MCV MCH MCHC RDW Plt Count MPV Neut % (Auto) Lymph % (Auto) Davis % (Auto) Eos % (Auto) Baso % (Auto) Neut # (Auto) Lymph # (Auto) Davis # (Auto) Eos # (Auto) Baso # (Auto) Total Counted 100 Neutrophils % (Manual) 81 H Lymphocytes % (Manual) 16 Monocytes % (Manual) 3 Platelet Estimate Normal RBC Morphology Normal Sodium Potassium Chloride Carbon Dioxide Anion Gap BUN Creatinine Estimated Creat Clear Estimated GFR Est GFR ( Amer) Glucose POC Glucose Calcium Preliminary micro results at discharge 01/01/24 21:35 Blood Culture - Preliminary Blood NO GROWTH AFTER 48 HOURS 01/01/24 19:31 Blood Culture - Preliminary Blood NO GROWTH AFTER 48 HOURS DS: Diagnosis Discharge Diagnosis (1) Acute exacerbation of CHF (congestive heart failure): Status: Resolved Code(s): I50.9 - Heart failure, unspecified Qualifiers: Heart failure type: combined systolic and diastolic Qualified Code(s): I50.43 - Acute on chronic combined systolic (congestive) and diastolic (congestive) heart failure (2) Pulmonary edema: Status: Resolved Code(s): J81.1 - Chronic pulmonary edema (3) Atrial fibrillation with rapid ventricular response: Status: Resolved Code(s): I48.91 - Unspecified atrial fibrillation (4) COPD exacerbation: Status: Resolved Code(s): J44.1 - Chronic obstructive pulmonary disease with (acute) exacerbation (5) Community acquired pneumonia: Status: Acute Code(s): J18.9 - Pneumonia, unspecified organism (6) Anxiety: Status: Acute Code(s): F41.9 - Anxiety disorder, unspecified (7) Smoking greater than 30 pack years: Status: Acute Code(s): F17.210 - Nicotine dependence, cigarettes, uncomplicated (8) Diastolic CHF: Status: Acute Code(s): I50.30 - Unspecified diastolic (congestive) heart failure (9) Diabetes: Status: Acute Code(s): E11.9 - Type 2 diabetes mellitus without complications (10) HTN (hypertension): Status: Chronic Code(s): I10 - Essential (primary) hypertension Qualifiers: Hypertension type: essential hypertension Qualified Code(s): I10 - Essential (primary) hypertension Meds Home Medications and Allergies Home Medications ?Medication ?Instructions ?Recorded ?Confirmed ?Type blood-glucose meter,continuous #1 ea 06/19/23 01/01/24 Rx (Dexcom G7 Blunger Machine Operator) blood-glucose sensor (Dexcom G7 #3 ea 10/30/23 01/01/24 Rx Sensor device) pen needle, diabetic 32 gauge x #100 ea 12/12/23 01/01/24 Rx 5/32 (BD Ultra-Fine Becka Pen Needle) albuterol sulfate 90 mcg/actuation 2 puff inhalation Q6HP PRN SOA 12/17/23 01/01/24 History aerosol inhaler (Ventolin HFA) atorvastatin 80 mg tablet 80 mg PO HS 12/17/23 01/01/24 History benzonatate 100 mg capsule 100 mg PO TIDP PRN Cough #30 caps 12/17/23 01/01/24 Rx bumetanide 1 mg tablet 1 mg PO BID 12/17/23 01/01/24 History clonazepam 0.5 mg tablet 0.5 mg PO DAILY PRN Agitation 12/17/23 01/01/24 History clopidogrel 75 mg tablet 75 mg PO DAILY 12/17/23 01/01/24 History cyclobenzaprine 10 mg tablet 10 mg PO Q8H 12/17/23 01/01/24 History dapagliflozin propanediol 10 mg 10 mg PO DAILY 12/17/23 01/01/24 History tablet (Farxiga) fluticasone propionate 45 2 inh inhalation BID 12/17/23 01/01/24 History mcg-salmeterol 21 mcg/actuation HFA inhaler (Advair HFA) insulin NPH-regular 70-30 U-100 18 unit SQ BID 12/17/23 01/01/24 History insulin 100 unit/mL subcutaneous pen (Humulin 70/30 U-100 KwikPen) insulin glargine 100 unit/mL (3 10 unit SQ HS 12/17/23 01/01/24 History mL) subcutaneous pen (Lantus Solostar U-100 Insulin) metoprolol tartrate 100 mg tablet 300 mg PO BID 12/17/23 01/02/24 History pantoprazole 40 mg tablet,delayed 40 mg PO DAILY 12/17/23 01/01/24 History release rivaroxaban 15 mg tablet (Xarelto) 15 mg PO DAILY 12/17/23 01/01/24 History spironolactone 25 mg tablet 25 mg PO DAILY 12/17/23 01/01/24 History valsartan 40 mg tablet 40 mg PO DAILY 12/17/23 01/01/24 History azithromycin 250 mg tablet 250 mg PO DAILY 2 days #2 tabs 01/04/24 Rx cefdinir 300 mg capsule 300 mg PO BID 2 days #4 caps 01/04/24 Rx New Prescriptions to Start Prescriptions: Eric Diamond cefdinir Eric Hopkins Allergies Allergy/AdvReac Type Severity Reaction Status Date / Time oxycodone [From PERCOCET] Allergy Unknown Unknown Verified 01/08/24 11:38 allergy reaction isosorbide [From Imdur] AdvReac Severe Headache Verified 01/08/24 11:38 Discharge Plan Disposition Patient Disposition: Home, Self-Care Condition: Serious Discharge Order Discharge Orders: Discharge Order (Routine); Ordered 01/04/24 Ordered By: Eric Hopkins Follow up Plan Follow up with: Nickolas Matthew APRN [Nurse Practitioner] - 01/08/24 11:15 am Prescriptions/Medication Reconciliation: New cefdinir 300 mg capsule 300 mg PO BID 2 Days Qty: 4 0RF azithromycin 250 mg tablet 250 mg PO DAILY 2 Days Qty: 2 0RF Rx Instructions: start on day 2 of therapy Continued (DME) Dexcom G7 Blunger Machine Operator Misc See Rx Instructions .Route Qty: 1 3RF Rx Instructions: As directed (DME) Dexcom G7 Sensor Device See Rx Instructions .ROUTE .COMPLEX Qty: 3 3RF Dose Instruction: USE DIRECTED TO TEST BLOOD GLUCOSE LEVEL CHANGE SENSOR EVERY 10 DAYS Rx Instructions: USE DIRECTED TO TEST BLOOD GLUCOSE LEVEL CHANGE SENSOR EVERY 10 DAYS (DME) pen needle, diabetic [BD Ultra-Fine Becka Pen Needle] 32 gauge x 5/32 needle See Rx Instructions .ROUTE .COMPLEX Qty: 100 4RF Dose Instruction: USE TWICE DAILY OR DIRECTED with insulin injections Rx Instructions: USE Tid OR DIRECTED with insulin injections cyclobenzaprine 10 mg tablet 10 mg PO Q8H Patient Comments: TAKE ONE TABLET BY MOUTH EVERY 8 HOURS MAY CAUSE DROWSINESS atorvastatin 80 mg tablet 80 mg PO HS Patient Comments: TAKE ONE TABLET BY MOUTH EVERY DAY metoprolol tartrate 100 mg tablet 300 mg PO BID Patient Comments: TAKE THREE TABLETS BY MOUTH TWICE DAILY Rx Instructions: Take 300mg in AM and 300mg HS clonazepam 0.5 mg tablet 0.5 mg PO DAILY PRN (Reason: Agitation) Patient Comments: TAKE ONE TABLET BY MOUTH EVERY DAY NEEDED FOR agitation MAY CAUSE DROWSINESS clopidogrel 75 mg tablet 75 mg PO DAILY Patient Comments: TAKE ONE TABLET BY MOUTH EVERY DAY spironolactone 25 mg tablet 25 mg PO DAILY Patient Comments: TAKE ONE TABLET BY MOUTH EVERY DAY pantoprazole 40 mg tablet,delayed release (DR/EC) 40 mg PO DAILY Patient Comments: TAKE ONE TABLET BY MOUTH EVERY DAY FOR acid reflux bumetanide 1 mg tablet 1 mg PO BID Patient Comments: TAKE ONE TABLET BY MOUTH TWICE DAILY albuterol sulfate [Ventolin HFA] 90 mcg/actuation HFA aerosol inhaler 2 puff INHALATION Q6HP PRN (Reason: SOA) Patient Comments: INHALE TWO PUFFS BY MOUTH EVERY 6 HOURS NEEDED FOR SHORTNESS OF BREATH valsartan 40 mg tablet 40 mg PO DAILY Patient Comments: TAKE ONE TABLET BY MOUTH EVERY DAY Humulin 70/30 U-100 KwikPen 100 unit/mL (70-30) insulin pen 18 unit SQ BID Patient Comments: INJECT 18 UNITS SUBCUTANEOUSLY TWICE DAILY FOR diabetes fluticasone propion-salmeterol [Advair HFA] 45-21 mcg/actuation HFA aerosol inhaler 2 inh INHALATION BID Patient Comments: INHALE TWO PUFFS BY MOUTH TWICE DAILY --RINSE MOUTH AFTER USE-- insulin glargine [Lantus Solostar U-100 Insulin] 100 unit/mL (3 mL) insulin pen 10 unit SQ HS Patient Comments: INJECT 10 UNITS SUBCUTANEOUSLY EVERY DAY AT BEDTIME Xarelto 15 mg tablet 15 mg PO DAILY Patient Comments: TAKE ONE TABLET BY MOUTH EVERY DAY dapagliflozin propanediol [Farxiga] 10 mg tablet 10 mg PO DAILY Patient Comments: TAKE ONE TABLET BY MOUTH EVERY DAY benzonatate 100 mg capsule 100 mg PO TIDP PRN (Reason: Cough) Qty: 30 0RF Problem Reconciliation Problems Reviewed?: Yes Patient Discharge Instructions ACTIVITY: Continue current activity DIET: cardiac Patient Instructions: Atrial Fibrillation, DI for Heart Failure, DI for Respiratory Failure Print Language: Citizen Of [place] Providers Primary Care Provider: Provider,Referral Admit Provider: Eric Hopkins Attending Provider: Eric Hopkins
[2024-01-04] MEDS: humaLOG 100 UNITS/ML 10ML VIAL (SSI) SQ (11:21)
[2024-01-04 11:25] LABS: POC Glucose,Bedside 321 (70-110)
--- NOTE | 2024-01-06 15:26 | CARE MANAGER ---
Contacted patient related to hospital discharge. She states that she doesn't feel well. She has taken her antibiotics and is aware of follow up appointment. Denies questions or concerns. LETI [place]
== END 2024-01-04 12:04 | disposition home or self-care (01) | DRG 291 ==
LOC: ER 21:11 → 2ND 21:46
PROVIDERS: Internal Medicine; Nurse Practitioner Acute Care; Physician Assistant; Admitting Provider Student in an Organized Health Care Education/Training Program; Emergency Provider Emergency Medicine; Visit Provider Student in an Organized Health Care Education/Training Program
DX: I50.43 Acute on chronic combined systolic (congestive) and diastolic (congestive) heart failure (principal); J18.9 Pneumonia, unspecified organism; J44.1 Chronic obstructive pulmonary disease with (acute) exacerbation; J96.01 Acute respiratory failure with hypoxia; I48.20 Chronic atrial fibrillation, unspecified; J81.1 Chronic pulmonary edema; N17.9 Acute kidney failure, unspecified; F41.9 Anxiety disorder, unspecified; I13.0 Hypertensive heart and chronic kidney disease with heart failure and stage 1 through stage 4 chronic kidney disease, or unspecified chronic kidney disease; I70.1 Atherosclerosis of renal artery; Z95.5 Presence of coronary angioplasty implant and graft; Z79.899 Other long term (current) drug therapy; Z79.4 Long term (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; F17.210 Nicotine dependence, cigarettes, uncomplicated; E11.65 Type 2 diabetes mellitus with hyperglycemia; I42.9 Cardiomyopathy, unspecified; Z86.16 Personal history of COVID-19; Z79.01 Long term (current) use of anticoagulants; N18.30 Chronic kidney disease, stage 3 unspecified; E11.22 Type 2 diabetes mellitus with diabetic chronic kidney disease
CPT/HCPCS: 36415; 71045; 80048; 80053; 82803; 82947; 82962; 83036; 83605; 83735; 83880; 84145; 84484; 85007; 85025; 87040; 87265; 87486; 87581; 87632; 87635; 93005; 93306; 94640; 99291; J0456; J0696; J1100; J1885; J1940; J2405; J3475; J7050; J7120; J7620

== ENCOUNTER 2024-02-10 12:42 | Outpatient (CLI) | payer MEDICARE, MEDICAID, SELFPAY ==
[2024-02-10] MEDS: ALBUTEROL 0.083% 2.5 MG/3 ML NEB IH (13:08)
--- NOTE | 2024-02-10 13:09 | PC.NURSE ---
Pre and Post Spirometry completed without incident. Albuterol 0.083% given via HHN, per written protocol, Pt tolerated tx well.
--- NOTE | 2024-02-10 13:33 | CT_ITS ---
FINAL REPORT TECHNIQUE: Thin section axial images were obtained from the lung apices through the upper abdomen without contrast. This study was performed with techniques to keep radiation doses as low as reasonably achievable (ALARA). Individualized dose reduction techniques using automated exposure control or adjustment of mA and/or kV according to the patient's size were employed. CLINICAL HISTORY: SOA, NODULES COMPARISON: 07/26/2022 FINDINGS: There are multiple small mediastinal nodes once again noted, unchanged from the prior exam. No pleural or pericardial effusion. Prominent coronary artery calcifications are present. Changes of emphysema are evident, as well as prior granulomatous disease. There is subpleural apical airspace disease once again noted, also seen on the prior CT. These findings are seen in the right upper lobe laterally, and are unchanged since the prior exam. These changes may represent changes of prior radiation therapy in this patient who has undergone a right axillary node dissection and right mastectomy. No new mass or nodule is identified. There is no change in the 27 mm left adrenal nodule present on the prior exam.. There is no acute osseous abnormality. IMPRESSION: There is apical subpleural airspace disease in the right upper lobe, which is stable when compared to the prior exam of July 2022. This may be secondary to radiation therapy post right axillary node dissection and mastectomy. No new nodules or masses are identified. No change in the 27 mm left adrenal nodule since the prior exam.. Reviewed, Interpreted and Dictated by Monalisa Riggs MD Transcribed by Farheen Correia Authenticated and [facility]
== END 2024-02-10 23:59 | disposition home or self-care (01) ==
LOC: RT 12:43
PROVIDERS: PCP Nurse Practitioner Family; Visit Provider Nurse Practitioner Family
DX: R91.1 Solitary pulmonary nodule (principal); J44.9 Chronic obstructive pulmonary disease, unspecified; F17.210 Nicotine dependence, cigarettes, uncomplicated
CPT/HCPCS: 71250; 94010; 94060; J7613

== ENCOUNTER 2024-02-19 11:15 | Outpatient (CLI) | payer MEDICARE, MEDICAID, SELFPAY ==
[2024-02-19 11:41] LABS: Basophils # 0.1 K/mm3 (0-0.2); Eosinophils # 0.2 K/mm3 (0.0-0.4); Hematocrit 47.6 % (37.0-47.0); Hemoglobin 15.4 g/dL (12.2-16.2); Lymphocytes # 2.5 K/mm3 (0.7-4.5); Lymphocytes % 34.7 % (10-50); Mean Corpuscular HGB Conc 32.4 g/dL (31.8-35.4); Mean Corpuscular Hemoglobin 30.1 pg (27.0-31.2); Mean Corpuscular Volume 92.9 fl (81-99); Mean Platelet Volume 8.1 fl (7.4-10.4); Monocytes # 0.5 K/mm3 (0.1-1.0); Monocytes % 7.6 % (1.7-9.3); Neutrophils # 3.8 K/mm3 (1.8-7.8); Neutrophils % 53.6 % (37.0-80.0); Platelet Count 219 K/mm3 (142-424); Red Blood Count 5.12 M/mm3 (4.20-5.40); Red Cell Distribution Width 14.8 % (11.5-17.5); White Blood Count 7.1 K/mm3 (4.8-10.8)
[2024-02-19 12:04] LABS: Alanine Aminotransferase 22 U/L (12-78); Albumin Level 3.8 g/dl (3.5-5.0); Alkaline Phosphatase 114 U/L (38-126); Anion Gap 11.4 mEq/L (5-15); Aspartate Amino Transferase 28 U/L (14-36); Bilirubin,Direct 0.4 mg/dl (0.0-0.4); Bilirubin,Indirect 0.3 mg/dL (0.0-0.9); Bilirubin,Total 0.7 mg/dl (0.2-1.3); Bilirubin,Unconjugated 0.3 mg/dL (0.0-1.1); Blood Urea Nitrogen 34 mg/dl (7-17); Calcium 9.3 mg/dl (8.4-10.2); Carbon Dioxide 23 mmol/L (22.0-30.0); Chloride 105 mmol/L (98-107); Chol/HDL Ratio 3.9 (1-3.5); Cholesterol 112 mg/dl (140-200); Estimated Glomerular Filt Rate 30 ml/min (>60); GFR (African American) 36 ML/MIN (>60); Glucose 188 mg/dl (74-100); HDL Cholesterol 29 mg/dl (40-60); Potassium 4.4 mmoL/L (3.5-5.1); Sodium 135 mmol/L (136-145); Triglycerides 142 mg/dl (30-150); VLDL Cholesterol 28 mg/dL (0-40)
[2024-02-19 12:14] LABS: Direct LDL Cholesterol 64.03 mg/dL (100-129)
[2024-02-19 12:20] LABS: Free T4 (Free Thyroxine) 1.02 ng/dl (0.78-2.19)
[2024-02-19 12:34] LABS: Thyroid Stimulating Hormone 0.87 uIU/mL (0.465-4.68)
== END 2024-02-19 23:59 | disposition home or self-care (01) ==
LOC: LAB 11:16
PROVIDERS: PCP Nurse Practitioner Family; Visit Provider Nurse Practitioner
DX: I10 Essential (primary) hypertension (principal); N18.9 Chronic kidney disease, unspecified; I50.30 Unspecified diastolic (congestive) heart failure; E11.9 Type 2 diabetes mellitus without complications; I50.9 Heart failure, unspecified; I73.9 Peripheral vascular disease, unspecified; I65.23 Occlusion and stenosis of bilateral carotid arteries; I25.118 Atherosclerotic heart disease of native coronary artery with other forms of angina pectoris
CPT/HCPCS: 36415; 80048; 80061; 80076; 84439; 84443; 85025

== ENCOUNTER 2024-07-20 16:03 | Emergency (ER) | payer MEDICARE, MEDICAID, SELFPAY ==
[2024-07-20 16:21] VITALS: BP 106/57; PULSE 68; RESP 19; TEMP 36.4; O2SAT 97; BMI 33.2
--- NOTE | 2024-07-20 16:42 | XR_ITS ---
PROCEDURE INFORMATION: Exam: XR Chest Exam date and time: 07/20/2024 4:47 PM Age: 63 years old Clinical indication: Cough; Additional info: Productive cough, weakness, lifelong smoker TECHNIQUE: Imaging protocol: Radiologic exam of the chest. Views: 2 views. COMPARISON: 1. CT CHEST WO CON 02/10/2024 1:48 PM 2. CR XR CHEST PORTABLE 01/03/2024 11:37 AM 3. CR XR CHEST 2V 08/27/2023 9:30 PM FINDINGS: Lungs: Unremarkable. No consolidation. Small calcified nodule in the left lung base. Pleural spaces: Unremarkable. No pleural effusion. No pneumothorax. Heart/Mediastinum: Unremarkable. No cardiomegaly. Bones/joints: Unremarkable. IMPRESSION: Stable chest x-ray with no acute disease.
--- NOTE | 2024-07-20 16:45 | [facility].EDGENADL ---
Discharge Plan Disposition Patient Disposition: Home, Self-Care Prescriptions Prescriptions: New doxycycline hyclate 100 mg capsule 100 mg PO BID 5 Days Qty: 10 0RF prednisone 20 mg tablet 40 mg PO DAILY 5 Days Qty: 10 0RF No Action clonazepam 0.5 mg tablet 0.5 mg PO DAILY PRN (Reason: Agitation) Qty: 30 2RF (DME) Dexcom G7 City Distribution Clerk Misc See Rx Instructions .Route Qty: 1 3RF Rx Instructions: As directed metoprolol tartrate 100 mg tablet 300 mg PO BID 90 Days Qty: 540 3RF (DME) Omnipod 5 G6-G7 Intro Kt(Gen5) Cartridge See Rx Instructions .Route Qty: 1 0RF Rx Instructions: As directed insulin lispro 100 unit/mL cartridge 1 sliding scale dose SQ USEASDIRECTD Qty: 15 3RF Rx Instructions: Max 80 units daily (DME) pen needle, diabetic [BD Ultra-Fine Becka Pen Needle] 32 gauge x 5/32 needle See Rx Instructions .ROUTE .COMPLEX Qty: 100 4RF Dose Instruction: USE TWICE DAILY OR DIRECTED with insulin injections Rx Instructions: USE Tid OR DIRECTED with insulin injections pantoprazole 40 mg tablet,delayed release (DR/EC) See Rx Instructions .ROUTE .COMPLEX Qty: 90 2RF Dose Instruction: TAKE ONE TABLET BY MOUTH EVERY DAY FOR acid reflux Rx Instructions: TAKE ONE TABLET BY MOUTH EVERY DAY FOR acid reflux bumetanide 1 mg tablet 1 mg PO BID Qty: 180 2RF atorvastatin 80 mg tablet See Rx Instructions .ROUTE .COMPLEX Qty: 90 3RF Dose Instruction: TAKE ONE TABLET BY MOUTH EVERY DAY Rx Instructions: TAKE ONE TABLET BY MOUTH EVERY DAY clopidogrel 75 mg tablet See Rx Instructions .ROUTE .COMPLEX Qty: 90 4RF Dose Instruction: TAKE ONE TABLET BY MOUTH EVERY DAY Rx Instructions: TAKE ONE TABLET BY MOUTH EVERY DAY cyclobenzaprine 10 mg tablet See Rx Instructions .ROUTE .COMPLEX Qty: 60 1RF Dose Instruction: TAKE ONE TABLET BY MOUTH EVERY 8 HOURS MAY CAUSE DROWSINESS Rx Instructions: TAKE ONE TABLET BY MOUTH EVERY 8 HOURS MAY CAUSE DROWSINESS (DME) Dexcom G7 Sensor Device See Rx Instructions .ROUTE .COMPLEX Qty: 3 3RF Dose Instruction: USE DIRECTED TO TEST BLOOD GLUCOSE LEVEL CHANGE SENSOR EVERY 10 DAYS Rx Instructions: USE DIRECTED TO TEST BLOOD GLUCOSE LEVEL CHANGE SENSOR EVERY 10 DAYS insulin lispro 100 unit/mL solution See Rx Instructions .ROUTE .COMPLEX Qty: 10 3RF Dose Instruction: Sliding scale DOSE via continuous subcutaneous infusion. (MAX DAILY DOSE OF 80 UNITS. Rx Instructions: Sliding scale DOSE via continuous subcutaneous infusion. (MAX DAILY DOSE OF 80 UNITS. (DME) Omnipod 5 G6-G7 Pods (Gen 5) Cartridge See Rx Instructions .Route Qty: 5 3RF Rx Instructions: As directed (DME) lancets [FreeStyle Lancets] 28 gauge misc See Rx Instructions .Route Qty: 100 1RF Rx Instructions: Three times daily or As directed (DME) blood-glucose meter [Accu-Chek Guide Glucose Meter] Misc See Rx Instructions .Route Qty: 1 0RF Rx Instructions: Test sugar three times daily or As directed (DME) Accu-Chek Guide test strips Strip See Rx Instructions .Route Qty: 100 0RF Rx Instructions: Check sugar three times daily or As directed spironolactone 25 mg tablet See Rx Instructions .ROUTE .COMPLEX Qty: 90 1RF Dose Instruction: TAKE ONE TABLET BY MOUTH EVERY DAY Rx Instructions: TAKE ONE TABLET BY MOUTH EVERY DAY valsartan 40 mg tablet See Rx Instructions .ROUTE .COMPLEX Qty: 90 1RF Dose Instruction: TAKE ONE TABLET BY MOUTH EVERY DAY Rx Instructions: TAKE ONE TABLET BY MOUTH EVERY DAY dapagliflozin propanediol [Farxiga] 10 mg tablet See Rx Instructions .ROUTE .COMPLEX Qty: 90 1RF Dose Instruction: TAKE ONE TABLET BY MOUTH EVERY DAY Rx Instructions: TAKE ONE TABLET BY MOUTH EVERY DAY albuterol sulfate [Ventolin HFA] 90 mcg/actuation HFA aerosol inhaler 2 puff INHALATION Q6HP PRN (Reason: SOA) Patient Comments: INHALE TWO PUFFS BY MOUTH EVERY 6 HOURS NEEDED FOR SHORTNESS OF BREATH fluticasone propion-salmeterol [Advair HFA] 45-21 mcg/actuation HFA aerosol inhaler 2 inh INHALATION BID Patient Comments: INHALE TWO PUFFS BY MOUTH TWICE DAILY --RINSE MOUTH AFTER USE-- Xarelto 15 mg tablet 15 mg PO DAILY Patient Comments: TAKE ONE TABLET BY MOUTH EVERY DAY benzonatate 100 mg capsule 100 mg PO TIDP PRN (Reason: Cough) Qty: 30 0RF Referrals Follow up/Referrals: Nickolas Matthew APRN [Primary Care Provider] - See instructions Activity Restrictions/Add. Instructions Additional Instructions/Restrictions: Call your family doctor to establish care for this visit to the emergency department and schedule follow-up within 48 hours to ensure improvement. If you have any worsening of your condition or any other concerning signs or symptoms, return to the emergency department or your primary care doctor for further evaluation. While taking doxycycline, limit sunlight exposure. It can cause severe sunburns even if you do not typically get sunburn. Be sure to wear hats, long sleeves, sunscreen if you are out in the sun for prolonged periods of time while taking doxycycline. Clinical Impressions Clinical Impression: Acute exacerbation of chronic obstructive pulmonary disease Instructions Patient Instructions: DI for Diarrhea and Traveler's Diarrhea -- Adult, DI for Diarrhea and Traveler's Diarrhea -- Child, DI for Nausea -- Adult, DI for Nausea -- Child Print Language Print Language: Latvian Discharge ED Provider: Geovani Barrientos General Adult HPI General Chief complaint: Nausea/Vomiting/Diarrhea Stated complaint: Weak,vomiting,cough,congestion,DALE Time Seen by Provider: 07/20/24 16:06 Mode of Arrival: Ambulatory Source of Information: Patient Description of Symptoms (Recalled from ER Triage Doc. by RN): pt presents to ED with c/o coughing (yellow sputum production), vomitting, weakness (pt feels that she is drunk), headache at top of head. symptoms began yesterday. History of Present Illness HPI narrative: Please note that above description of symptoms, in this electronic medical record under categorization of recalled from ER triage doctor by RN are reflective of an initial nursing assessment, however, is not reflective of my full history and physical exam that was personally taken and clarified. Consequentially, this preceding description of symptoms, which may include the patient's categorized chief complaint in the EMR, do not reflect my personal clinical impression, and the ultimate description of history of present illness and patient stated complaints should be deferred to this section of the note. Unless stated otherwise or congruent with this section of the note, additional signs, symptoms, or incongruence should be interpreted as inaccurate with my clinical impression. 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 #1 ea 06/19/23 (Dexcom G7 City Distribution Clerk) pen needle, diabetic 32 gauge x #100 ea 12/12/2332 (BD Ultra-Fine Becka Pen Needle) benzonatate 100 mg capsule 100 mg PO TIDP PRN Cough #30 caps 12/17/23 metoprolol tartrate 100 mg tablet 300 mg (3 x 100 mg) PO BID 90 days 02/19/24 #540 tabs pantoprazole 40 mg tablet,delayed See Rx Instructions .Route 02/19/24 release .COMPLEX #90 tabs insulin lispro 100 unit/mL 1 sliding scale dose SQ 05/13/24 subcutaneous cartridge USEASDIRECTD #15 mL insulin pump cartridge,auto #1 ea 05/13/24 dose,BT,G6/G7 with controller subcutaneous (Omnipod 5 G6-G7 Intro Kit(Gen 5) subcutaneous cartridge and controller) bumetanide 1 mg tablet 1 mg PO BID #180 tabs 05/17/24 atorvastatin 80 mg tablet See Rx Instructions .Route 05/26/24 .COMPLEX #90 tabs clopidogrel 75 mg tablet See Rx Instructions .Route 05/26/24 .COMPLEX #90 tabs cyclobenzaprine 10 mg tablet See Rx Instructions .Route 06/10/24 .COMPLEX #60 tabs blood-glucose sensor (Dexcom G7 #3 ea 06/29/24 Sensor device) insulin lispro 100 unit/mL See Rx Instructions .Route 07/07/24 subcutaneous solution .COMPLEX #10 mL blood sugar diagnostic (Accu-Chek #100 ea 07/08/24 Guide test strips) blood-glucose meter (Accu-Chek #1 ea 07/08/24 Guide Glucose Meter) insulin pump cart,auto,BT,G6/7 #5 ea 07/08/24 (Omnipod 5 G6-G7 Pods (Gen 5) subcutaneous cartridge) lancets 28 gauge (FreeStyle #100 ea 07/08/24 Lancets) clonazepam 0.5 mg tablet 0.5 mg PO DAILY PRN Agitation #30 07/14/24 tabs dapagliflozin propanediol 10 mg See Rx Instructions .Route 07/20/24 tablet (Farxiga) .COMPLEX #90 tabs doxycycline hyclate 100 mg capsule 100 mg PO BID 5 days #10 caps 07/20/24 prednisone 20 mg tablet 40 mg (2 x 20 mg) PO DAILY 5 days 07/20/24 #10 tabs spironolactone 25 mg tablet See Rx Instructions .Route 07/20/24 .COMPLEX #90 tabs valsartan 40 mg tablet See Rx Instructions .Route 07/20/24 .COMPLEX #90 tabs Allergies Allergy/AdvReac Type Severity Reaction Status Date / Time oxycodone (From PERCOCET) Allergy Unknown Unknown Verified 07/14/24 15:36 allergy reaction isosorbide (From Imdur) AdvReac Severe Headache Verified 07/14/24 15:36 [facility] Disclaimer: The information contained in this section may have been updated after the patient was seen, as this information can be updated by other users. Medical History Sinusitis Cough Pleural effusion Encounter for screening for malignant neoplasm of lung Lung nodule Smoking greater than 30 pack years COPD mixed type Dyspnea on exertion Chronic a-fib History of COVID-19 Sleep apnea Migraine History of gastroesophageal reflux (GERD) Diabetes mellitus, type 2 History of left heart catheterization (LHC) Breast cancer Cardiac murmur Atypical angina Abnormal stress test Neuropathic pain Cardiomyopathy Left carotid bruit Tobacco dependence syndrome ADRIANA (obstructive sleep apnea) Diastolic dysfunction Ex-smoker Abnormal EKG HTN (hypertension) Tachycardia induced cardiomyopathy Fatigue IDDM (insulin dependent diabetes mellitus) Neuropathy Congestive heart failure Diabetes mellitus Surgical History History of right heart catheterization (RHC) Tubal ligation status History of tonsillectomy Family History Other Family history of COPD (chronic obstructive pulmonary disease) Family history of GERD Family history of cancer Family history of diabetes mellitus type II Family history of hyperlipidemia Family history of hypertension Family history of migraine headaches Family history of myocardial infarction Family history of stroke Social History Smoking Status: Current every day smoker tobacco type: cigarettes packs per day: 1 second hand exposure: No alcohol intake: never counseling provided: none substance use type: marijuana current occupational status: retired, disabled and other Travel in the last 8 weeks?: None household members: family and children housing: house current occupational exposures/hazards: No caffeine: No Have you lived/traveled outside [place] in past 30 days?: No Contact w/someone who lives/traveled outside [place] past 30 days?: No Exposure to someone with infectious disease in past 14 days?: No Do you have a fever (greater than 100.4 F or 38 C)?: No Have you tested positive for COVID-19?: No Exposed to someone with COVID-19 in past 14 days?: No Do you have a sore throat?: No Do you have a cough?: Yes Do you have any weakness?: Yes Do you have any diarrhea?: No Are you experiencing any unusual bleeding?: No Do you have any muscle aches/pain?: No Do you have any abdominal pain?: No Are you experiencing loss of taste or smell?: No Other Medical History Have you received the Flu Vaccine for this season: No Have you received the Pneumonia Vaccine: Yes ROS Obtained: Yes All systems reviewed & no additional complaints except as documented Physical Exam General General appearance: alert Head Head exam: atraumatic and normocephalic Eye Eye exam: Present normal appearance, PERRL and EOMI Neck Neck exam: Present normal inspection, full ROM and trachea midline Respiratory Respiratory exam: Absent respiratory distress, wheezes, stridor, accessory muscle use or prolonged expiratory phase Cardiovascular Cardiovascular exam: Present other (Pulses equal symmetric in upper and lower extremities) Abdominal Exam Abdominal exam: Present soft; Absent distention, tenderness or pulsatile mass Extremities Exam Extremities exam: Absent edema Neurological Exam Neurological exam: Present alert, oriented X3 and CN II-XII intact; Absent motor sensory deficit Skin Skin exam: Present warm and dry; Absent diaphoresis or erythema Medical Decision Making Medical Records Medical records reviewed: Yes I reviewed the patient's medical records. Screening: Per USPSTF and CDC recommendations, given the prevalence of disease in our region, it is our hospital?s policy to screen for HIV and viral Hepatitis for all patients aged 18 and over and those with ongoing risk factors. Gianfranco Inquiry Pt receiving controlled substance: No Gianfranco was queried for this patient: No Vital Signs: 07/20/24 16:21 Temperature 97.6 F Temperature Source Oral Pulse Rate [Left Radial] 68 Respiratory Rate 19 Blood Pressure [Right Arm] 106/57 L Blood Pressure Mean [Right Arm] 73 02 Sat by Pulse Oximetry 97 Oxygen Delivery Method Room Air Orders (Tests/Meds): ED MEDICATIONS Discontinued Medications Generic Name Dose Route Start Last Admin Trade Name Jj PRN Reason Stop Dose Admin Dexamethasone 10 mg 07/20/24 16:42 07/20/24 16:50 Dexamethasone 4mg Tablet PO 07/20/24 16:43 10 mg ONCE ONE Administration Doxycycline Hyclate 100 mg 07/20/24 16:42 07/20/24 16:51 Doxycycline Hycl 100 Mg Tablet PO 07/20/24 16:43 100 mg ONCE ONE Administration Ondansetron HCl 4 mg 07/20/24 16:42 07/20/24 16:51 Ondansetron 4mg Odt SL 07/20/24 16:43 4 mg ONCE ONE Administration ORDERS Category Date Time Status CXR 2 view (NOT portable) [XR chest 2V] Stat Exams 07/20/24 16:42 Taken Medical Decision Narrative: 63-year-old female history of hypertension, hyperlipidemia, diabetes, CAD, COPD still smoking and not on home oxygen, CHF, presenting with cough, generalized weakness, vomiting. She states that this been going on for a couple of days at this point. Started noticing vomiting that was nonbloody, nonbilious 2 days ago. Turned into cough that is productive of green to brown, thick sputum yesterday, 07/19. States that she usually has a smoker's cough, productive of white to clear sputum. No obvious fevers or chills, but has felt generally weak. No chest pain, syncope, any other acute complaints. No sick contacts that she knows of. History was obtained via conversation with patient. On arrival, patient hemodynamically stable, alert, oriented x4, appropriate, GCS 15, moving all extremities spontaneously, pupils equal and reactive to light. Full physical exam performed and significant for very clinically well-appearing female no acute distress. Lungs are clear, cardiac exam without murmurs gallops or rubs. Heart rate in the 90s, but nontachycardic. Speaking full sentences. Differential includes COPD exacerbation, bronchitis, pneumonia, less likely be pneumothorax, PE, ACS, SD, among others. Patient placed on continuous cardiac monitoring and continuous pulse ox with initial blood pressure 106/57, heart rate 68, saturation 97% on room air. Patient was given prednisone, doxycycline, Zofran and p.o. challenge for symptomatic management and correction of underlying abnormalities. Workup independently interpreted and significant for no obvious lobar consolidation on chest x-ray, but haziness in the right lower lobe. On reevaluation, patient able to tolerate p.o. intake, clinically well, no acute complaints. Given patient presentation, workup, history, this most likely represents uncomplicated COPD exacerbation. Because patient at baseline without signs or symptoms of clinical decompensation, deemed appropriate for discharge. Results were relayed to patient who voiced understanding and were agreeable to outpatient management and follow up. I discussed my clinical impression with patient and answered all questions. At this time, the evidence for any other entities in the differential is insufficient to warrant any further testing or ED observation. This was explained as well. Advisory was given that persistent or worsening symptoms require further evaluation. I confirmed the understanding of this discussion. [employer] disclaimer Much of this encounter note is an electronic plant wrapper spoken language to printed text. Electronic plant wrapper of the spoken language may permit errors. Although I have reviewed the note, some errors may still exist. Critical Care Critical Care Time Critical Care Time: No
[2024-07-20] MEDS: DEXAMETHASONE 4MG TABLET 10 MG PO (16:50)
[2024-07-20] MEDS: ONDANSETRON 4MG ODT 4 MG SL (16:51)
[2024-07-20] MEDS: DOXYCYCLINE HYCL 100 MG TABLET PO (16:51)
[2024-07-20 18:01] VITALS: BP 136/79; PULSE 74; RESP 19; TEMP 36.6
== END 2024-07-20 18:03 | disposition home or self-care (01) ==
PROVIDERS: Emergency Provider Emergency Medicine; PCP Nurse Practitioner Family
DX: J44.1 Chronic obstructive pulmonary disease with (acute) exacerbation (principal); R11.10 Vomiting, unspecified; R53.1 Weakness; F17.210 Nicotine dependence, cigarettes, uncomplicated
CPT/HCPCS: 71046; 99283; J8540; Q0162

== ENCOUNTER 2024-08-15 20:20 | Emergency (ER) | payer SELFPAY ==
[2024-08-15] VITALS (11 sets, daily range): BP systolic 105–156; BP diastolic 67–106; PULSE 72–120; RESP 12–17; TEMP 36.6–36.9; O2SAT 92–100; BMI 34.7; BMI 33.9
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
--- OUTSIDE RECORDS SUMMARY | 2024-08-15 20:27 | XMS_ITS | Data Portability ---
Author Organization [facility]IS[facility] - ERIS Stovall [facility] Address [address] [facility] [address] [place] [address] Assessment No assessment recorded. Plan of Treatment Reminders Order Date Submit Date Provider Last Modified By Organization Details Last Modified Time Details Appointments None recorded. Lab unlisted lab - AFP, tumor marker 2022 023 [facility], [address] [place] [address], [id number], 12:01:32 carcinoembr yonic Ag, quant, serum or plasma 2022 023 [facility], [address] [place] [address], [id number], 12:27:59 Referral None recorded. Procedures None recorded. Surgeries None recorded. Imaging None recorded. Medication Orders None recorded. Patient TargetsNo targets recorded. Patient InstructionsNo instructions recorded. Reason for Referral None Reported. Results Created Date Observation Date Name Description Value Unit Range Abnormal Flag Note LastModifiedBy Organization Detail LastModifiedTime 06/20/1906/19/2022 COMPL ETE BLOOD COUNT white blood cells 7.1 K/uL 3.8-10 .8 normal Not Available [facility] [address] [place] [address], [id number], 06/19/2022 11:52:55 06/20/1906/19/2022 COMPL ETE BLOOD COUNT red blood cells 5.59 M/uL 3.80-5 .20 high Not Available [facility] [address] [place] [address], [id number], 06/19/2022 11:52:55 06/20/19 23 06/19/2022 COMPL ETE BLOOD COUNT hemoglobin 15.1 g/dL 12.0-1 6.0 normal Not Available [facility] [address] [place] [address], [id number], 06/19/2022 11:52:55 06/20/19 23 06/19/2022 COMPL ETE BLOOD COUNT hematocrit 46.3 % 35.0-4 7.0 normal Not Available [facility] [address] [place] [address], [id number], 06/19/2022 11:52:55 06/20/19 23 06/19/2022 COMPL ETE BLOOD COUNT MCV 83 fL 80-100 normal Not Available [facility] [address] [place] [address], [address], 06/19/2022 11:52:55 06/20/19 23 06/19/2022 COMPL ETE BLOOD COUNT MCH 27 pg 26-35 normal Not Available [facility] [address] [place] [address], [id number], 06/19/2022 11:52:55 06/20/19 23 06/19/2022 COMPL ETE BLOOD COUNT MCHC 33 g/dL 32-36 normal Not Available [facility] [address] [place] [address], [id number], 06/19/2022 11:52:55 06/20/19 23 06/19/2022 COMPL ETE BLOOD COUNT RDW 19.0 % 11.0-1 5.0 high Not Available [facility] [address] [place] [address], [id number], 06/19/2022 11:52:55 06/20/19 23 06/19/2022 COMPL ETE BLOOD COUNT MPV 7.5 fL 6.2-10 .5 normal Not Available [facility] [address] [place] [address], [address], 06/19/2022 11:52:55 06/20/19 23 06/19/2022 COMPL ETE BLOOD COUNT platelet count 260 K/uL 130-40 0 normal Not Available [facility] [address] [place] [address], [address], 06/19/2022 11:52:55 06/20/19 23 06/19/2022 COMPL ETE BLOOD COUNT neutrophil,a bsolute 4.4 K/uL 1.6-8. 4 normal Not Available [facility] [address] [place] [address], [id number], 06/19/2022 11:52:55 06/20/19 23 06/19/2022 COMPL ETE BLOOD COUNT lymphocyte,a bsolute 2.1 K/uL 0.4-5. 1 normal Not Available [facility] [address] [place] [address], [address], 06/19/2022 11:52:55 06/20/19 23 06/19/2022 COMPL ETE BLOOD COUNT monocyte,abs olute 0.5 K/uL 0.0-1. 2 normal Not Available [facility] [address] [place] [address], [id number], 06/19/2022 11:52:55 06/20/19 23 06/19/2022 COMPL ETE BLOOD COUNT eosinophil,a bsolute 0.1 K/uL 0.0-0. 8 normal Not Available [facility] [address] [place] [address], [address], 06/19/2022 11:52:55 06/20/19 23 06/19/2022 COMPL ETE BLOOD COUNT basophil,abs olute 0.0 K/uL 0.0-0. 3 normal Not Available [facility] [address] [place] [address], [address], 06/19/2022 11:52:55 06/20/19 23 06/19/2022 COMPL ETE BLOOD COUNT % neutrophils 62.0 % 42.0-7 8.0 normal Not Available [facility] [address] [place] [address], [id number], 06/19/2022 11:52:55 06/20/19 23 06/19/2022 COMPL ETE BLOOD COUNT % lymphocytes 28.9 % 11.0-4 7.0 normal Not Available [facility] [address] [place] [address], [address], 06/19/2022 11:52:55 06/20/19 23 06/19/2022 COMPL ETE BLOOD COUNT % monocytes 7.6 % 0.0-11 .0 normal Not Available [facility] [address] [place] [address], [address], 06/19/2022 11:52:55 06/20/19 23 06/19/2022 COMPL ETE BLOOD COUNT % eosinophils 0.8 % 0.0-7. 0 normal Not Available [facility] [address] [place] [address], [address], 06/19/2022 11:52:55 06/20/19 23 06/19/2022 COMPL ETE BLOOD COUNT % basophils 0.7 % 0.0-3. 0 normal Not Available [facility] [address] [place] [address], [address], 06/19/2022 11:52:55 06/20/19 23 06/19/2022 COMPL ETE BLOOD COUNT nucleated red cells 0.0 % 0.0-0. 9 normal Not Available [facility] [address] [place] [address], [address], 06/19/2022 11:52:55 06/20/19 23 06/19/2022 COMPL ETE BLOOD COUNT nucleated RBCs, absolute 0.00 K/uL not estab. normal Not Available [facility] [address] [place] [address], [address], 06/19/2022 11:52:55 06/20/19 23 06/19/2022 COMP. METAB OLIC PANEL glucose 308 mg/dL 74-100 high Not Available [facility] [address] [place] [address], [address], 06/19/2022 12:24:35 06/20/19 23 06/19/2022 COMP. METAB OLIC PANEL blood urea nitrogen 38 mg/dL 6-20 high Not Available [facility] [address] [place] [address], [address], 06/19/2022 12:24:35 06/20/19 23 06/19/2022 COMP. METAB OLIC PANEL creatinine 2.03 mg/dL 0.50-0 .95 high Not Available [facility] [address] [place] [address], [address], 06/19/2022 12:24:35 06/20/19 23 06/19/2022 COMP. METAB OLIC PANEL BUN/creatini ne ratio 19 (calc ) 10-20 normal Not Available [facility] [address] [place] [address], [address], 06/19/2022 12:24:35 06/20/19 23 06/19/2022 COMP. METAB OLIC PANEL sodium 134 mmol/ L 136-14 5 low Not Available [facility] [address] [place] [address], [address], 06/19/2022 12:24:35 06/20/19 23 06/19/2022 COMP. METAB OLIC PANEL potassium 4.1 mmol/ L 3.4-5. 0 normal Not Available [facility] [address] [place] [address], [address], 06/19/2022 12:24:35 06/20/19 23 06/19/2022 COMP. METAB OLIC PANEL chloride 95 mmol/ L 98-107 low Not Available [facility] [address] [place] [address], [address], 06/19/2022 12:24:35 06/20/19 23 06/19/2022 COMP. METAB OLIC PANEL carbon dioxide 25 mmol/ L 22-31 normal Not Available [facility] [address] [place] [address], [address], 06/19/2022 12:24:35 06/20/19 23 06/19/2022 COMP. METAB OLIC PANEL anion gap 14 (calc ) 7-25 normal Not Available [facility] [address] [place] [address], [address], 06/19/2022 12:24:35 06/20/19 23 06/19/2022 COMP. METAB OLIC PANEL calcium 9.3 mg/dL 8.6-10 .2 normal Not Available [facility] [address] [place] [address], [address], 06/19/2022 12:24:35 06/20/19 23 06/19/2022 COMP. METAB OLIC PANEL total protein 7.1 g/dL 6.4-8. 3 normal Not Available [facility] [address] [place] [address], [address], 06/19/2022 12:24:35 06/20/19 23 06/19/2022 COMP. METAB OLIC PANEL albumin 3.6 g/dL 3.5-5. 2 normal Not Available [facility] [address] [place] [address], [address], 06/19/2022 12:24:35 06/20/19 23 06/19/2022 COMP. METAB OLIC PANEL globulin 3.5 g/dL_ (calc ) 1.5-4. 5 normal Not Available [facility] [address] [place] [address], [address], 06/19/2022 12:24:35 06/20/19 23 06/19/2022 COMP. METAB OLIC PANEL albumin/glob ulin ratio 1.0 (calc ) 1.1-2. 5 low Not Available [facility] [address] [place] [address], [address], 06/19/2022 12:24:35 06/20/19 23 06/19/2022 COMP. METAB OLIC PANEL bilirubin, total 0.6 mg/dL 0.1-1. 2 normal Not Available [facility] [address] [place] [address], [address], 06/19/2022 12:24:35 06/20/19 23 06/19/2022 COMP. METAB OLIC PANEL alkaline phosphatase 153 U/L 30-121 high Not Available [facility] [address] [place], [address], 06/19/2022 12:24:35 06/20/19 23 06/19/2022 COMP. METAB OLIC PANEL AST 19 U/L 0-32 normal Not Available [facility] [address] [place] [address], [address], 06/19/2022 12:24:35 06/20/19 23 06/19/2022 COMP. METAB OLIC PANEL ALT 26 U/L 0-33 normal Not Available [facility] [address] [place] [address], [address], 06/19/2022 12:24:35 06/20/19 23 06/19/2022 COMP. METAB OLIC PANEL GFR 27 >= 60 abnormal NOT E New calcu latio n for GFR (CKD- EPI 2020) is formu lated witho ut race adjus tment facto rs at the recom menda tion of the [facility]ya [facility] and [facility] [employer] Nephr ology . This calcu latio n has not been valid ated in pregn ant women . For pedia bridgett riose nts refer to https :[email or web address] [place].jayesh jordan/aakash reyes s/TIANO QI/gf r_cal culat orPed Not Available [facility] [address] [place] [address], [phone], 06/19/2022 12:24:35 06/20/19 23 06/19/2022 LIPAS E lipase 75 U/L 13-60 high Not Available [facility] [address] [place], [address], 06/19/2022 12:24:37 06/20/19 23 06/19/2022 AMYLA SE amylase 84 U/L 28-100 normal Not Available [facility] [address] [place], [address], 06/19/2022 12:24:38 06/20/1906/19/2022 CARCI NOEMB RYONI C AG carcinoembry onic Ag 4.3 NG/mL 0.0-4. 7 normal This test was perfo rmed using the Maritza Armando E801 elect maritza mil inesc ent metho d. Value s obtai fantasma from diffe rent assay metho ds canno t be used inter landers eably . . Not Available [facility] [address] [place], [address], 06/19/2022 12:27:59 06/20/1906/21/2022 AFP, TUMOR MARKE R AFP, tumor marker 3.9 NG/mL normal Refer ence Range : <6.1 The use of AFP as a tumor marke r in pregn ant femal es is not recom tony d. This test was perfo rmed using the Beckm an Coult er chemi lumin escen t metho d. Value s obtai fantasma from diffe rent assay metho ds canno t be used inter landers eably . AFP level s, regar dless of value , shoul d not be inter prete d as absol david evide nce of the prese nce or absen ce of disea se. TEST PERFO RMED AT: [facility] [place] [address] [place] [address] ANTHO NY V BARBARA S Not Available [facility] [address] [place], [address], 06/21/2022 12:01:32 Result Notes None recorded. Procedures Surgical History Date Name Laterality Status Provider Name and Address Organization Details Recorded Time Removal of adenoids completed [facility] 06/19/2022 10:37:01 biopsy of breast completed [facility] 06/19/2022 10:37:08 cardiac catheterization completed [facility] 06/19/2022 10:37:16 excision of right breast completed [facility] 06/19/2022 10:37:39 tonsillectomy completed [facility] 06/19/2022 10:37:47 ligation of fallopian tube completed [facility] 06/19/2022 10:37:57 Imaging Results None recorded. Procedure Notes None recorded. Medical Equipment None Reported. Allergies Allergen ID Allergen Name Allergen Category Reaction Reaction Severity Criticality Documentation Date Start Date Code Code System Note Provider Name and Address Organization Details Recorded Time [id number] acetamino phen / oxycodone medicatio n Not available Not available Not available 06/19/2022 23293 3 [facility] 10:27:08 Medications Name Sig Start Date Stop Date Status Note LastModified by Organization Details LastModified Time atorvastatin 80 mg tablet Take 1 tablet every day by oral route. active Not Available Not Available No t Available metoprolol tartrate 100 mg tablet Take 1 tablet every day by oral route. active Not Available Not Available No t Available clonazepam 0.5 mg tablet Take 1 tablet twice a day by oral route. active Not Available Not Available No t Available metoprolol succinate ER 100 mg tablet,exten ded release 24 hr Take 3 tablets twice a day by oral route. active Not Available Not Available No t Available Plavix 75 mg tablet Take 1 tablet every day by oral route. active Not Available Not Available No t Available spironolacto ne 25 mg tablet Take 1 tablet every day by oral route. active Not Available Not Available No t Available pantoprazole 40 mg tablet,delay ed release Take 1 tablet twice a day by oral route. active Not Available Not Available No t Available bumetanide 1 mg tablet Take 1 tablet twice a day by oral route. active Not Available Not Available No t Available Flexeril 10 mg tablet Take 1 tablet every 8 hours by oral route as needed. active Not Available Not Available N ot Available valsartan 40 mg tablet Take 1 tablet twice a day by oral route. active Not Available Not Available No t Available Advair Diskus active Not Available Not Available Not Available ProAir HFA 90 mcg/actuatio n aerosol inhaler Inhale 2 puffs every 4 hours by inhalation route as needed. active Not Available Not Available No t Available loratadine 10 mg capsule Take 1 capsule every day by oral route. active Not Available Not Available No t Available Xarelto 15 mg tablet Take 1 tablet every day by oral route. active Not Available Not Available No t Available Humulin 70/30 U-100 Insulin KwikPen 100 unit/mL subcutaneous Inject by subcutaneou s route as needed. active Not Available Not Available No t Available dapagliflozi n propanediol 10 mg tablet Take 1 tablet every day by oral route. active Not Available Not Available No t Available Flonase Allergy Relief active Not Available Not Available Not Available Vitals Date Recorded Body height Body mass index (BMI) Body weight Heart rate Respiratory rate Oxygen saturation Oxygen saturation in Arterial blood by Pulse oximetry Systolic blood pressure Diastolic blood pressure Systolic blood pressure Diastolic blood pressure Provider Name and Address Organization Details Last Updated DateTime 3 170.18 cm 32.4 kg/m2 71610.6 2 g 76 /min 18 /min 95 % 95 % 85 mm[Hg] 53 mm[Hg] 86 mm[Hg] 54 mm[Hg] Juancho Aburto [facility] 10:31:52 Social History Question Answer Notes LastModified by Organizat ion Details LastModified Time Tobacco Smoking Status Current Every Day Smoker Juanchorey Aburto [facility] 06/19/2022 10:28:41 What Is Your Relationship Status? Single [email or web address] Information not available 06/19/2022 At What Age Did You Start Smoking Tobacco? 10 [email or web address] Information not available 06/19/2022 How Much Tobacco Do You Smoke? 1 PPD [email or web address] Information not available 06/19/2022 How Many Years Have You Smoked Tobacco? 51 [email or web address] Information not available 06/19/2022 Sex: Unknown Functional Status Question Answer Note LastModified by Organizat ion Details LastModified Time Do you use any illicit or recreational drugs? No [email or web address] Information not available 06/19/2022 What is your level of alcohol consumption? None [email or web address] Information not available 06/19/2022 Mental Status None recorded. Family History Relationship Description Onset Age of this Age Resolved Age Notes LastModified by Organization Details LastModified Time Unspecified Relation Harmful pattern of use of alcohol [email or web address] Not available 06/19 10:27:16 Unspecified Relation Arthritis [email or web address] Not available 06/2022 10:27:23 Unspecified Relation Asthma [email or web address] Not available 2022 10:27:27 Unspecified Relation Family history of malignant neoplasm [email or web address] Not available 06/19 10:27:36 Medical History Condition Response Heart Arrhythmia Y Emphysema Y Depression Y Anxiety Disorder Y Arthritis Y Acid Reflux (GERD) Y Cancer Y Stroke Y Headaches Y Kidney Disease Y Asthma Y Radiation Therapy Y High Cholesterol Y Heart Attack ([place]) Y Diabetes Y Seizures/Epilepsy Y Heart Disease Y Hypertension Y Gynecological HistoryNo gynecological history recorded. Obstetrics History GPAL:G 0 P 0 0 0 0 Past Encounters Encounter ID Performer Location Encounter Start Date Encounter Closed Date Diagnosis/Indication Diagnosis SNOMED-CT Code Diagnosis ICD10 Code Diagnosis Note [id number] MARCELLA LA APRN [facility]STR[facility] [place] [address] [facility], [address] [place] [address] 06/19/2022 10:04:03 06/19/2022 13:16:42 Abdominal mass 272250235 R19.00 US abdominal wall mass protocol.C T results from [facility] Apr 2022.Upper endoscopy recommende d for evaluation of abdominal mass, early satiety, nausea with eating.Lab as orderedRec ommend follow up ATMMY with PCP for cough, wheezing, has history of COPD to rule out pneumonia. She also has low BP. Hold BP meds today. History of AFIB. If worsening dizziness, go to nearest ER. [id number] SAHRA MEADE MD SURGERY SCHEDULE [address] [place] [phone] 07/06/2022 09:34:05 07/06/2022 09:35:20 Health Concerns Section Related Observation LastModified by Organization Detai ls LastModified Time None Recorded Concern Status LastModified by Organization Details LastModified Time None Recorded Advance Directives Directive None Recorded Payers Insurance Date Sequence Insurance Name Policy Number Policy Boyd Covered Member ID Boyd Member ID Guarantor Name 06/29/2022 1 [employer] [place]AC[place] - [place]MO) [id number] Stephanie Kulkarni [id number] Stephanie Kulkarni 08/21/2022 1 [employer] [place] - [place]MO) Stephanie Kulkarni [id number] Stephanie Kulkarni Notes Date Note Type Note Provider Name and Address Organization Details Recorded Time 06/19/2022 text/html Stephanie Kulkarni is a 61 yr old female here today for evaluation of intermittent abdominal knot, mass in epigastric region of abdomen.Has work up with CT scan in Apr 2022. Declined endoscopy at that time, will request those records from [facility].Started 2-3 years ago, no known triggers or pattern. May occur once a week and last several days. During episodes, has visible swelling in area of her upper abdomen, nausea, loss of appetite, early satiety. Has lost 40 lbs since symptoms started.No known anemia, no history of liver disease, no family history of stomach or esophageal cancer. She had breast cancer with mastectomy 10 years ago.Denies melena, bright red rectal bleeding.Last colonoscopy 2 years ago, has history of colon polyps. MARCELLA LA, [employer]GRAM[employer] [address] [place], [address], [facility] 06/19/2022 12:48:58 OBGyn Episode No OBEpisode recorded.
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
[2024-08-15 20:34] LABS: Basophils # 0.1 K/mm3 (0-0.2); Basophils % 0.6 % (0.1-2.0); Eosinophils # 0.2 Kmm3 (0.0-0.4); Eosinophils % 2.2 % (0.1-12.0); Hematocrit 51.2 % (37.0-47.0); Hemoglobin 16.7 g/dL (12.2-16.2); Immature Granulocytes # 0.04 10^3uL; Immature Granulocytes % 0.4 %; Lymphocytes # 3.8 K/mm3 (0.7-4.5); Mean Corpuscular HGB Conc 32.6 g/dL (31.8-35.4); Mean Corpuscular Hemoglobin 29.6 pg (27.0-31.2); Mean Corpuscular Volume 90.6 fl (81-99); Mean Platelet Volume 10.2 fl (7.4-10.4); Monocytes # 0.8 K/mm3 (0.1-1.0); Monocytes % 7.9 % (1.7-9.3); Neutrophils # 5.6 K/mm3 (1.8-7.8); Neutrophils % 52.9 % (37.0-80.0); Nucleated Red Blood Cells # 0 10^3/uL; Nucleated Red Blood Cells % 0 %; Platelet Count 282 K/mm3 (142-424); Red Blood Count 5.65 M/mm3 (4.20-5.40); Red Cell Distribution Width 15.2 % (11.5-17.5); Red Cell Distribution Width-SD 50.6 fL; White Blood Count 10.5 K/mm3 (4.8-10.8)
[2024-08-15] MEDS: IOPAMIDOL-370 (76%);100ML BOTTLE 160 ML IV (20:36)
[2024-08-15] MEDS: 0.9 % SODIUM CHLORIDE 50 ML VIAL 80 ML IV (20:36)
[2024-08-15] MEDS: SODIUM CHLORIDE 0.9% 10ML FLUSH SYRINGE 10 ML IV (20:37)
[2024-08-15 20:38] LABS: Chloride 100 mmol/L (98-107)
[2024-08-15 20:39] LABS: Albumin Level 4.5 g/dl (3.5-5.0); Potassium 4.7 mmoL/L (3.5-5.1); Sodium 133 mmol/L (136-145)
[2024-08-15 20:41] LABS: Blood Urea Nitrogen 36 mg/dl (7-17); Creatinine Clearance Estimated 50 mL/min (50-200); Estimated Glomerular Filt Rate 30 ml/min (>60); GFR (African American) 36 ML/MIN (>60)
[2024-08-15 20:42] LABS: Activated Partial Thrombo Time 36.5 seconds (22.8-30.6); Alanine Aminotransferase 32 U/L (12-78); Albumin/Globulin Ratio 1.5 (1.1-1.8); Alkaline Phosphatase 129 U/L (38-126); Anion Gap 15.7 mEq/L (5-15); Aspartate Amino Transferase 36 U/L (14-36); Bilirubin,Total 0.9 mg/dl (0.2-1.3); Calcium 9.8 mg/dl (8.4-10.2); Carbon Dioxide 22 mmol/L (22.0-30.0); Glucose 203 mg/dl (74-100); INR 1.07 (0.9-1.1); Prothrombin Time 11.8 seconds (10.1-12.5); Total Protein,Serum 7.5 g/dl (6.3-8.2)
[2024-08-15] MEDS: ONDANSETRON 4MG/2ML VIAL 4 MG IV (21:00)
[2024-08-15] MEDS: MORPHINE 4MG/ML SYRINGE 4 MG IV (21:00)
[2024-08-15] MEDS: 0.9 % SODIUM CHLORIDE 1000ML 500 ML 999 ML IV (21:00)
== END 2024-08-15 22:35 | disposition home or self-care (01) ==
PROVIDERS: Emergency Provider Student in an Organized Health Care Education/Training Program
DX: S00.03XA Contusion of scalp, initial encounter (principal); N28.1 Cyst of kidney, acquired; I48.20 Chronic atrial fibrillation, unspecified; Z79.01 Long term (current) use of anticoagulants; V49.40XA Driver injured in collision with unspecified motor vehicles in traffic accident, initial encounter; Y92.410 Unspecified street and highway as the place of occurrence of the external cause
CPT/HCPCS: 70450; 70496; 70498; 71275; 72125; 72128; 72131; 72192; 74174; 80053; 85025; 85610; 85730; 96374; 96375; 99291; J2270; J2405; J7030; Q9967

== ENCOUNTER 2024-10-15 15:01 | Emergency (ER) | payer MEDICARE, MEDICAID, SELFPAY ==
--- OUTSIDE RECORDS SUMMARY | 2024-10-15 15:11 | XMS_ITS | Encounter Summary ---
Author Organization Healthcare Address [address] [place] [address] Care Team Providers Care Employee Benefits Insurance Agent Name Role Phone Rudybal Madiha Fernández APRN Primary Care Provider [phone] Idris Jones MD Unavailable [phone] Encounter Details Date Type Department Care Team ([facility] Contact Info) Description 01/05/2019 Orders Only External Location [address] [place] [id number] Provider, External Social History Tobacco Use Types Packs/Day Years Used Date Smoking Tobacco: Never Assessed Comments Unknown Sex and Gender Information Value Date Recorded Sex Assigned at Not on file Legal Sex Female 7:41 PM EDT Gender Identity Not on file Sexual Orientation Not on file documented as of this encounter Plan of Treatment Upcoming Encounters Date Type Department Care Team (Late Contact Info) Description 11/11/2024 10:50 AM EDT Office Visit Medical Office Building Urology [address] [facility], [address] [place] [address] Lisa Hurtado PA [address] [facility] [address] [place] [address] 03/22/2025 11:10 AM EST Office Visit [facility] [address] [place] [address] Lisa Hurtado PA [id number] [place] [address] documented as of this encounter Procedures Procedure Name Priority Date/Time Associated Diagnosis Comments US OUTSIDE IMAGES 01/05/2019 2:55 PM EDT documented in this encounter Results * US OUTSIDE IMAGES (01/05/2019 2:55 PM EDT) Anatomical Region Laterality Modality Ultrasound 01/05/2019 2:55 PM EDT us External Provider IMG US PROCEDURES Final Result documented in this encounter Visit Diagnoses Not on filedocumented in this encounter Care Teams Employee Benefits Insurance Agent Relationship Specialty Start Date End Date Madiha Villarreal APRN [address] [place] [address] PCP - General 07/29/20 Idris Jones MD [address] [place] [phone] First Call Provider Interventional Cardiology 04/16/22 documented as of this encounter
--- OUTSIDE RECORDS SUMMARY | 2024-10-15 15:11 | XMS_ITS | Encounter Summary ---
Author Organization Healthcare Address [address] [place] [address] Care Team Providers Care Kiln Door Builder Name Role Phone Rudybal Madiha Fernández APRN Primary Care Provider [phone] Idris Jones MD Unavailable [phone] Reason for Visit * Reason Onset Date Comments Image/Report Request 09/25/2024 2nd Request to Reports 09/25/2024 Rcvd Records 09/25/2024 Encounter Details Date Type Department Care Team (Late st Contact Info) Description 09/25/2024 Telephone [facility] [address], [address] [place] [address] Lisa Hurtado, THELMA [address] [place] [address] Image/Report Request; 2nd Request to Reports; Rcvd Records Social History Tobacco Use Types Packs/Day Years Used Date Smoking Tobacco: Every Day Smokeless Tobacco: Never Alcohol Use Standard Drinks/Week Comments No 0 (1 standard drink = 0.6 oz pur e alcohol) CAGE ASSESSMENT Answer Date Recorded Cage unable to access Not on file 04/13/2022 Cage max number of drinks Not on file 2022 Cage Beverages a week Not on file 04/13/2022 Have you ever felt you should CUT down on your d rinking? 0 04/13/2022 Have you been ANNOYED by people criticizing your drinking? 0 04/13/2022 Have you felt GUILTY about your drinking? 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 0 04/13/2022 CAGE Questionnaire Score 0 023 Comments No Sex and Gender Information Value Date Recorded Sex Assigned at Not on file Legal Sex Female 7:41 PM EDT Gender Identity Not on file Sexual Orientation Not on file documented as of this encounter Miscellaneous Notes * Telephone Encounter - Filiberto Chen - 10/05/2024 8:36 AM EDT Attempted to contact pt to relay Lisa Hurtado's message. Unable to LVM as voicemail is currently full and not taking messages. * Telephone Encounter - Lakesha Woodruff - 10/02/2024 7:24 PM EDT Tried calling patient and there was no answer and was unable to leave a message * Telephone Encounter - Yumi Posada - 09/28/2024 11:46 AM EDT Rcvd records * Telephone Encounter - Yumi Posada - 09/28/2024 7:29 AM EDT Received images, faxed another request for reports [phone] * Telephone Encounter - Yumi Posada - 09/25/2024 1:19 PM EDT Faxed request to [facility] for Ct and MRI images/report * Telephone Encounter - Ileana Horvath - 09/25/2024 9:12 AM EDT Clinical Concern/Question Reason for Call: Patient went to [facility], she thinks it has been a couple weeks and she says they did an MRI and she think CT scan. She is asking if Ms. Hurtado needs to see them? Requesting a call back. Best contact number: [phone] (mobile) if you call today she says call [phone] Optimal time of day to reach caller: ANYTIME Additional comments/information from caller: None Note: Please do not reply to this message. Follow-up communication and further actions as a result of this message need to be communicated with the patient directly, if the patient is not active onMyChart. If the patient is active on MyChart, they will receive notification of the communication/outcome via Inxero. documented in this encounter Plan of Treatment Upcoming Encounters Date Type Department Care Team ([facility] Contact Info) Description 11/11/2024 10:50 AM EDT Office Visit Medical Office Building Urology [address] [facility], [address] [place] [phone] Lisa Hurtado PA [address] [place] [address] 03/22/2025 11:10 AM EST [facility] [address] [place] [phone] Lisa Hurtado PA [address] [place] [address] documented as of this encounter Visit Diagnoses Not on filedocumented in this encounter Additional Health Concerns Assessment Noted Time A fall risk assessment has been complete d for the patient 06/06/2022 3:25 PM EDT A Body Mass Index follow-up plan has been documented for the patient 10/24/2022 5:18 PM EDT documented as of this encounter Care Teams Kiln Door Builder Relationship Specialty Start Date End Date Madiha Villarreal APRN [address] [place] [address] PCP - General 07/29/20 Idris Jones MD [address] [place] [phone] First Call Provider Interventional Cardiology 04/16/22 documented as of this encounter
--- OUTSIDE RECORDS SUMMARY | 2024-10-15 15:11 | XMS_ITS | Clinical Summary ---
Author Organization [facility] Address [address] [place] [id number] Care Team Providers Care Aqua Ammonia Operator Name Role Phone Gopi Razo MD Primary Care Provider [phone] Allergies No known active allergies Medications cyclobenzaprine (FLEXERIL) 5 MG tablet TAKE 1 TABLET BY MOUTH EVERY 8 HOURS NEEDED FOR MUSCLE SPASMS 0 01/27/2016 Active metoprolol tartrate (LOPRESSOR) 100 MG tablet Take 100 mg by mouth 2 (Two) Times a Day. Active lisinopril (PRINIVIL,ZESTRI L) 40 MG tablet Take 40 mg by mouth Daily. Active amLODIPine (NORVASC) 10 MG tablet Take 10 mg by mouth Daily. Active pantoprazole (PROTONIX) 40 MG EC tablet Take 40 mg by mouth Daily. Active glipiZIDE (GLUCOTROL) 5 MG tablet Take 5 mg by mouth 2 (Two) Times a Day Before Meals. Active linagliptin (TRADJENTA) 5 MG tablet tablet Take 5 mg by mouth Daily. Active gabapentin (NEURONTIN) 600 MG tablet Take 600 mg by mouth 3 (Three) Times a Day. Active furosemide (LASIX) 40 MG tablet Take 40 mg by mouth 2 (Two) Times a Day. Active albuterol (PROVENTIL HFA;VENTOLIN HFA) 108 (90 BASE) MCG/ACT inhaler Inhale 2 puffs Every 4 (Four) Hours As Needed for wheezing. Active Active Problems No known active problems Social History Tobacco Use Types Packs/Day Years Used Date Smoking Tobacco: Every Day Cigarettes Alcohol Use Standard Drinks/Week Comments No 0 (1 standard drink = 0.6 oz pur e alcohol) Abuse Screen Answer Date Recorded Unsafe at Home or Work/School Not on file Feels Threatened by Someone? Not on file 01/2023 Does Anyone Keep You from Co ntacting Others or Doint Things Outside the Home? Not on file 12/26/2022 Physical Sign of Abuse Present Not on file 1 Housing Stability Answer Date Recorded Current Living Arrangements Not on file 12/16 Potentially Unsafe Housing Conditions Not on rakel e 12/26/2022 Family and Community Support Answer Jose Manuel e Recorded Help with Day-to-Day Activities Not on file 12/26/2022 Lonely or Isolated Not on file 12/26/2022 Employment Answer Date Recorded Do you want help finding or keeping work or a marybel b? Not on file 12/26/2022 Disabilities Answer Date Recorded Concentrating, Remembering, or Making Decisions Difficulty Not on file 12/26/2022 Doing Errands Independently Difficulty Not on fi le 12/26/2022 Education Answer Date Recorded Help with school or training? Not on file Preferred Language Not on file 12/26/2022 Comments Unknown Sex and Gender Information Value Date Recorded Sex Assigned at Not on file Legal Sex Female 9:11 AM EST Gender Identity Not on file Sexual Orientation Not on file Last Filed Vital Signs Vital Sign Reading Time Taken Comments Blood Pressure - - Pulse - - Temperature 36.1 C (97 F) 04/27/2016 11:03 AM EST Respiratory Rate - - Oxygen Saturation - - Inhaled Oxygen Concentration - - Weight 108 kg (237 lb) 04/27/2016 11:03 AM EST Height 167.6 cm (5' 6 ) 04/27/2016 11:03 AM EST Body Mass Index 38.25 04/27/2016 11:03 AM EST Plan of Treatment Health Maintenance Due Date Last Done Comments ANNUAL PHYSICAL 1960 DXA SCAN 1960 HEPATITIS C SCREENING 1958 TDAP/TD VACCINES (1 - Tdap) 1977 MAMMOGRAM 1998 COLOGUARD 12/12/2003 COLON CANCER SCREENING 5 YEAR SIGMOIDOSCOPY 12/12/2003 COLONOSCOPY 12/12/2003 COLORECTAL CANCER SCREENING 12/12/2003 CT COLONOGRAPHY 12/12/2003 FECAL OCCULT BLOOD TEST 12/12/2003 FIT Testing (1 year) 12/12/2003 Pneumococcal Vaccine 50+ (1 of 1 - PCV) 2008 ZOSTER VACCINE (1 of 2) 2008 COVID-19 Vaccine ( season) 2023 INFLUENZA VACCINE 12/16/2024 Insurance [facility] Care Teams Aqua Ammonia Operator Relationship Specialty Start Date End Date Gopi Razo MD [address] [facility] [address] [place] [address] PCP - General Family Medicine 04/27/16
--- OUTSIDE RECORDS SUMMARY | 2024-10-15 15:11 | XMS_ITS | Encounter Summary ---
Author Organization Healthcare Address [address] 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 your nerves or to get [...] Encounters Date Type Department Care Team (Late st Contact Info) Description 11/11/2024 10:50 AM EDT Office Visit Medical Office Building Urology [address], [address] [place] [address] Lsia Hurtado PA [address] [place] [address] 03/22/2025 11:10 AM EST Office Visit [facility] [address], [address] [place] [address] Lisa Hurtado, THELMA [address] [place] [address] documented as of this encounter Procedures Procedure Name Priority Date/Time Associated Diagnosis Comments CT NEURO OUTSIDE IMAGES 08/15/2024 8:32 PM EDT documented in this encounter Results * CT NEURO OUTSIDE IMAGES (08/15/2024 8:32 PM EDT) Anatomical Region Laterality Modality Computed Tomogra phy 08/15/2024 8:32 PM EDT us External Provider IMG CT PROCEDURES Final Result documented in this encounter Visit Diagnoses Not on filedocumented in this encounter Additional Health Concerns Assessment Noted Time A fall risk assessment has been complete d for the patient 06/06/2022 3:25 PM EDT A Body Mass Index follow-up plan has been documented for the patient 10/24/2022 5:18 PM EDT documented as of this encounter Care Teams Box Cutter Relationship Specialty Start Date End Date Madiha Villarreal APRN [address] [place] [address] PCP - General 07/29/20 Idris Jones MD [address] [place] [address] First Call Provider Interventional Cardiology 04/16/22 documented as of this encounter
--- OUTSIDE RECORDS SUMMARY | 2024-10-15 15:11 | XMS_ITS | Clinical Summary ---
Author Organization [facility] Address [address] [place] [address] Care Team Providers Care Dumping Machine Operator Name Role Phone Phil Madiha Fernández APRN Primary Care Provider [phone] Idris Jones MD Unavailable [phone] Allergies Active Allergy Reactions Criticality Noted Date Comments Isosorbide Headache High 10/30/2023 headache, migraine Oxycodone-Acetaminophe n Other - please document in the comment field Low 03/07/2021 Body stores up and then releases Medications ProAir HFA 108 (90 Base) MCG/ACT inhaler INHALE 1 PUFF BY MOUTH FOUR TIMES DAILY NEEDED FOR SHORTNESS OF BREATH OR WHEEZING --SHAKE WELL BEFORE USE-- 1 Active atorvastatin (Lipitor) 80 MG tablet Take 1 tablet (80 mg) by mouth 1 (one) time each day. 1 Active clopidogrel (Plavix) 75 MG tablet Take 1 tablet (75 mg) by mouth 1 (one) time each day. 9 Active Xarelto 15 MG tablet Take 1 tablet (15 mg) by mouth 1 (one) time each day. 1 Active fluticasone (Flonase) 50 MCG/ACT nasal spray Administer 1 spray into each nostril 1 (one) time each day. Shake gently. Before first use, prime pump. After use, clean tip and replace cap. Active fluticasone-sa lmeterol (Advair) 45-21 MCG/ACT inhaler Inhale 2 puffs 2 (two) times a day. Rinse mouth with water after use to reduce aftertaste and incidence of candidiasis. Do not swallow. Active clonazePAM (KlonoPIN) 0.5 MG tablet Take 1 tablet (0.5 mg) by mouth 2 (two) times a day. Active pantoprazole (Protonix) 40 MG EC tablet Take 1 tablet (40 mg total) by mouth 2 (two) times a day. Do not crush, chew, or split. 60 tablet 3 Active bumetanide (Bumex) 1 MG tablet Take 1 tablet (1 mg total) by mouth 2 (two) times a day. 60 tablet 3 Active dapagliflozin (Farxiga) 10 MG tabletIndicati ons:Left Systolic Heart Failure,Type 2 Diabetes Mellitus Take 1 tablet (10 mg total) by mouth 1 (one) time each day. 30 tablet 3 Active metoprolol succinate XL (Toprol-XL) 100 MG 24 hr tablet Take 3 tablets (300 mg total) by mouth 2 (two) times a day. Do not crush or chew. 180 tablet 3 Active nicotine (Nicoderm CQ) 21 MG/24HR patch Place 1 patch on the skin 1 (one) time each day. 30 patch 3 Active ondansetron (Zofran) 4 MG tablet Take 1 tablet (4 mg total) by mouth every 6 (six) hours if needed for nausea or vomiting. 20 tablet 3 Active spironolactone (Aldactone) 25 MG tablet Take 1 tablet (25 mg total) by mouth 1 (one) time each day at the same time. 30 each 3 Active valsartan (Diovan) 40 MG tablet Take 1 tablet (40 mg total) by mouth 2 (two) times a day. 60 tablet 3 Active cyclobenzaprin e (Flexeril) 10 MG tablet TAKE ONE TABLET BY MOUTH EVERY 8 HOURS FOR SPASMS MAY CAUSE DROWSINESS 3 Active HumuLIN 70/30 KWIKPEN (70-30) 100 UNIT/ML injection pen inject 28 UNITS SUBCUTANEOUSLY TWICE DAILY FOR diabetes 3 Active Insulin Glargine Solostar 100 UNIT/ML solution pen-injector inject 8 units SUBCUTANEOUSLY EVERY DAY AT BEDTIME 3 Active dexamethasone (Decadron) 1 MG tablet Take one tablet at 11pm the evening prior to your blood work. Please get blood drawn promptly at 8am the following day. 1 tablet 3 Active Additional Information Patient not taking.Reported on 06/15/2024 Continuous Glucose Heel Cementer Machine (Dexcom G7 Heel Cementer Machine) device USE DIRECTED TO TEST BLOOD GLUCOSE LEVEL 4 Active Continuous Glucose Sensor (Dexcom G7 Sensor) [facility] [place] Active Active Problems Problem Noted Date Diagnosed Date Postmenopausal bleeding 05/09/2022 Assessment & Plan (06/13/2022 2:41 PM EDT): 61yo with PMB Follows up after TVUS. Reviewed findings, ES < 4mm. Reviewed low likelihood of malignancy. We reviewed options, including observation, EMB in the office today, as well as HSC, D&C. She's had multiple episodes of bleeding over the years, and we recommended sampling, but she prefers no sampling. Family member present, they will discuss and call us back if she changes her mind. Assessment & Plan (05/09/2022 4:15 PM EST): Reviewed history. Recommended and ordered TVUS, will follow up after to review findings and recommendations. Endometrial sampling likely recommended, pending results, unless lining less than 4mm. Family history of breast cancer 05/09/2022 Assessment & Plan (05/09/2022 4:16 PM EST): Patient has a personal history of breast cancer, sister with breast cancer, mother with ovarian cancer. Recommended and ordered genetics counseling consult. 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 04/09/2022 Persistent atrial fibrillation 04/08/2022 Overview (04/13/2022): Added automatically from request for surgery [id number] Malignant neoplasm of overla pping sites of right breast in female, estrogen receptor positive 03/09/2021 Cancer Staging:Pathologic stage from 03/18/2011:Stage IIIC(T3, N3, cM0) - Unsigned Lytic bone lesions on xray 05/06/2019 Peripheral vascular disease 02/05/2019 Vitamin D deficiency 10/02/2017 Type 2 diabetes mellitus wit hout complication, with long-term current use of insulin 08/15/2017 Essential hypertension 08/15/2017 CKD (chronic kidney disease) stage 3, GFR 30-59 ml/min 07/18/2017 Resolved Problems Problem Noted Date Diagnosed Date Resolved Date Acute hypoxemic respiratory failure 04/10/2022 04/16/2022 Bilateral pleural effusion 04/10/2022 0 04/16/2022 Acute kidney injury superimposed on CKD 04/10/2022 04/16/2022 Hepatic congestion 04/10/2022 Chest pain 04/09/2022 04/16/2022 Myocardial injury 04/09/2022 04/10/2022 Persistent atrial fibrillation 04/09/2022 04/10/2022 Carotid artery disease 02/04/201904/10 Hypokalemia 10/02/2017 04/10/2022 Encounters Date Type Department Care Team Description 10/02/2024 Telephone [facility] Urology [address], [address] [place] [phone] Lakesha Woodruff 09/25/2024 Telephone [facility] Urology [address], [address] [place] [phone] Lisa Hurtado PA Image/Report Request; 2nd Request to Reports; Rcvd Records 09/21/2024 Telephone [facility] Urology [address], [address] [place] [phone] Lisa Hurtado PA Appt Changes 08/15/2024 Orders Only External Location [address] [place] [address] Nickolas Hale MD 08/15/2024 Orders Only External Location [address] [place] [phone] Provider, External 08/15/2024 Orders Only External Location [address] [place] [address] Provider, External 08/15/2024 Orders Only External Location [address] [place] [phone] Provider, External 08/15/2024 Orders Only External Location [address] [place] [phone] Provider, External 08/15/2024 Orders Only External Location [address] [place] [phone] Provider, External 08/15/2024 Orders Only External Location [address] [place] [phone] Provider, External 08/15/2024 Orders Only External Location [address] [place] [phone] Provider, External 08/15/2024 Orders Only External Location [address] [place] [address] Provider, External from Last 3 Months Immunizations Immunization Administration Dates Next Due Influenza, injectable, quadrivalent 12/31/2018 Pneumococcal Polysaccharide PPV23 12/31/2018 Family History Medical History Relation Name Comments Bone cancer Father Cardiac disorder Father Hypertension Father Cardiac disorder Mother Conversions - Other Mother malignan t neoplasm of ovary Hypertension Mother Breast cancer Sister Relation Name Status Comments Father Mother Sister Social History Tobacco Use Types Packs/Day Years Used Date Smoking Tobacco: Every Day Smokeless Tobacco: Never Tobacco Cessation:Ready to Q uit: Not Asked; Counseling Given: Not Answered Alcohol Use Standard Drinks/Week Comments No 0 [...] drink first t alicja in the morning ([employer]CH[employer]) to steady your nerves or to get rid of a hangover? 0 04/13/2022 CAGE Questionnaire Score 0 023 Comments No Sex and Gender Information Value Date Recorded Sex Assigned at Not on file Legal Sex Female 7:41 PM EDT Gender Identity Not on file Sexual Orientation Not on file Last Filed Vital Signs Vital Sign Reading Time Taken Comments Blood Pressure 113/81 10/24/2022 1:43 PM EDT Pulse 96 10/24/2022 1:43 PM EDT Temperature 36.6 C (97.8 F) 07/23/2022 6:51 AM EDT Respiratory Rate 24 07/23/2022 7:00 AM EDT Oxygen Saturation 89% 07/23/2022 7:00 AM EDT Inhaled Oxygen Concentration - - Weight 95.3 kg (210 lb) 02/26/2024 2:40 PM EST Height 167.6 cm (5' 6 ) 02/26/2024 2:40 PM EST Body Mass Index 33.89 02/26/2024 2:40 PM EST Plan of Treatment Upcoming Encounters Date Type Department Care Team (Late st Contact Info) Description 11/11/2024 10:50 AM EDT Office Visit Medical Office Building Urology [address] [facility] [address], [address] [place] [address] Lisa Hurtado PA [address] [place] [address] 03/22/2025 11:10 AM EST Office Visit [place] [facility] [address], [address] [place] [address] Lisa Hurtado PA [address] [place] [address] Health Maintenance Due Date Last Done Comments [facility]-Bone Density Scan 1960 [facility]-Depression Screening 1958 [facility]-Diabetes: Hemoglobin A1C 1958 [facility]-Medicare Annual Wellness (AWV) 1958 [facility]-/Child/Adol SDOH Screenings 1960 [id number] Vaccine (#1) 12/12/1963 Diabetes: Dental Exam 1968 [facility]- SDOH Screenings 1976 [facility]-Adult SDOH Screenings 1976 [facility]-DTaP,Tdap,and Td Vaccines (1 - Tdap) 1977 [facility]-Zoster Vaccines (1 of 2) 1977 [facility]-Pap Smear 12/12/1979 [facility]-Cervical Cancer Screening 1988 [facility]-HPV/Cotest 1988 CT Colonography 12/12/2003 Colonoscopy 12/12/2003 FIT-DNA 12/12/2003 FIT 12/12/2003 FOBT 12/12/2003 Sigmoidoscopy 12/12/2003 [facility]-Colorectal Cancer Screening 12/12/2003 [facility]-RSV Vaccine: 60+ Years or (1 - Risk 60-74 years 1-dose series) 2018 [facility]-Pneumococcal Vaccine: 50+ Years (2 of 2 - PCV) 01/01/2020 12/31/2018 [facility]-Influenza Vaccine (#1) 2024 12/31/2018 [facility]-Hepatitis C Screening Completed 04/08/2022 [facility]-Obesity Intervention Completed 023, 06/13/2022, 06/06/2022, Additional history exists HPV Vaccines Aged Out No longer eligi ble based on patient's age to complete this topic [facility]-HIB Vaccines Aged Out No longer e ligible based on patient's age to complete this topic [facility]-Hepatitis A Vaccines Aged Out No longer eligible based on patient's age to complete this topic [facility]-IPV Vaccines Aged Out No longer e ligible based on patient's age to complete this topic [facility]-Rotavirus Vaccines Aged Out No lo nger eligible based on patient's age to complete this topic Procedures Procedure Name Priority Date/Time Associated Diagnosis Comments CT OUTSIDE IMAGES 08/15/2024 8:[address] NEURO OUTSIDE IMAGES 08/15/2024 8:[address] NEURO OUTSIDE IMAGES 08/15/2024 8:[address] NEURO OUTSIDE IMAGES 08/15/2024 8:[address] MSK OUTSIDE IMAGES 08/15/2024 8:[address] NEURO OUTSIDE IMAGES 08/15/2024 8:[address] NEURO OUTSIDE IMAGES 08/15/2024 8:[address] NEURO OUTSIDE IMAGES 08/15/2024 8:[address] NEURO OUTSIDE IMAGES 08/15/2024 8:32 PM EDT HEPATITIS C ANTIBODY - ED W/REFLEX TO HCV QUANT PCR STAT 04/08/2022 9:47 PM EST from Last 3 Months or Most Recently Relevant to Health Maintenance Results * CT OUTSIDE IMAGES (08/15/2024 8:49 PM EDT) Anatomical Region Laterality Modality Computed Tomogra phy 08/15/2024 8:49 PM EDT us Nickolas Hale MD IMG CT PROCEDURES Final Result * CT NEURO OUTSIDE IMAGES (08/15/2024 8:49 PM EDT) Only the most recent of7 resultswithin the time period is included. Anatomical Region Laterality Modality Computed Tomogra phy 08/15/2024 8:49 PM EDT us External Provider IMG CT PROCEDURES Final Result * CT MSK OUTSIDE IMAGES (08/15/2024 8:43 PM EDT) Anatomical Region Laterality Modality Computed Tomogra phy 08/15/2024 8:43 PM EDT us External Provider IMG CT PROCEDURES Final Result * Hepatitis C Antibody - ED (04/08/2022 9:47 PM EST) Hepatitis C Antibody Negative Negative 04/08/2022 11:25 PM EST [facility] Blood Venous blood specimen / Unknown Venipuncture / Unknown 04/08/2022 9:47 PM EST 04/08/2022 10:11 PM EST us Roger Caruso MD LAB BLOOD ORDERABLES Final Result [facility] [address] [place] [address] from Last 3 Months or Most Recently Relevant to Health Maintenance Insurance [address] [place] [address] [facility] MEDICARE MEDICAID-[place] Advance Directives * Full Code (Latest Code Status on File) Date Activated Date Inactivated Comments 04/09/2022 5:08 AM 04/16/2022 5:29 PM Question Answer Comments Patient has decision-making capacity? Yes Care Teams Dumping Machine Operator Relationship Specialty Start Date End Date Madiha Villarreal APRN [address] [place] [address] PCP - General 07/29/20 Idris Jones MD [address] [place] [phone] First Call Provider Interventional Cardiology 04/16/22
--- OUTSIDE RECORDS SUMMARY | 2024-10-15 15:11 | XMS_ITS | Encounter Summary ---
Author Organization Healthcare Address [address] [place] [address] Care Team Providers Care Concrete Mixer Loader Truck Mounted Name Role Phone Phil Madiha Fernández APRN Primary Care Provider +1- [phone] Idris Jones MD Unavailable [phone] Encounter Details Date Type Department Care Team ([facility] st Contact Info) Description 08/15/2024 Orders Only External Location [address] [place] [phone] Provider, External Social History Tobacco Use Types [...] drink first t alicja in the morning (EYE-SPRINKLER TENDER) to steady your nerves or to get [...] Urology [address], [address] [place] [address] Lisa Hurtado PA [address] [place] [address] 03/22/2025 11:10 AM EST Office Visit [place] [facility] [address], [address] [place] [address] Lisa Hurtado, THELMA [address] [place] [address] documented as of this encounter Procedures Procedure Name Priority Date/Time Associated Diagnosis Comments CT NEURO OUTSIDE IMAGES 08/15/2024 8:49 PM EDT documented in this encounter Results * CT NEURO OUTSIDE IMAGES (08/15/2024 8:49 PM EDT) Anatomical [...] documented as of this encounter Care Teams Concrete Mixer Loader Truck Mounted Relationship Specialty Start Date End Date Madiha Villarreal APRN [address] [place] [address] PCP - General 07/29/20 Idris Jones MD [address] [place] [address] First Call Provider Interventional Cardiology 04/16/22 documented as of this encounter
--- OUTSIDE RECORDS SUMMARY | 2024-10-15 15:11 | XMS_ITS | Encounter Summary ---
Author Organization Healthcare Address [address] [place] [address] Care Team Providers Care Digital Learning Platforms Manager Name Role Phone Phil Madiha Fernández APRN Primary Care Provider +1- [phone] Idris Jones MD Unavailable [phone] Encounter Details Date Type Department Care Team ([facility] st Contact Info) Description 08/15/2024 Orders Only External Location [address] [place] [phone] Provider, External Social History Tobacco Use Types [...] drink first t alicja in the morning (EYE-MULTIGRAPH OPERATOR) to steady your nerves or to get [...] Urology [address], [address] [place] [address] Lisa Hurtado, PA [address] [place] [address] 03/22/2025 11:10 AM EST Office Visit [place] [facility] [address], [address] [place] [address] Lisa Hurtado, THELMA [address] [place] [address] documented as of this encounter Procedures Procedure Name Priority Date/Time Associated Diagnosis Comments CT MSK OUTSIDE IMAGES 08/15/2024 8:43 PM EDT documented in this encounter Results * CT MSK OUTSIDE IMAGES (08/15/2024 8:43 PM EDT) Anatomical Region Laterality Modality Computed Tomogra phy 08/15/2024 8:43 PM EDT External Provider IMG CT PROCEDURES Final Result documented in this encounter Visit Diagnoses Not on filedocumented in this encounter Additional Health Concerns Assessment Noted Time A fall risk assessment has been complete d for the patient 06/06/2022 3:25 PM EDT A Body Mass Index follow-up plan has been documented for the patient 10/24/2022 5:18 PM EDT documented as of this encounter Care Teams Digital Learning Platforms Manager Relationship Specialty Start Date End Date Madiha Villarreal APRN [address] [place] [address] PCP - General 07/29/20 Idris Jones MD [address] [place] [address] First Call Provider Interventional Cardiology 04/16/22 documented as of this encounter
--- OUTSIDE RECORDS SUMMARY | 2024-10-15 15:11 | XMS_ITS | Encounter Summary ---
Author Organization Healthcare Address [address] [place] [address] Care Team Providers Care Property And Casualty Insurance Agent Name Role Phone Phil Madiha Fernández APRN Primary Care Provider +1- [phone] Idris Jones MD Unavailable [phone] Encounter Details Date Type Department Care Team ([facility] st Contact Info) Description 08/15/2024 Orders Only External Location [address] [place] [phone] Provider, External Social History Tobacco Use Types [...] drink first t alicja in the morning (EYE-FORK REPAIRER) to steady your nerves or to get [...] Urology [address], [address] [place] [address] Lisa Hurtado PA [address] [place] [address] 03/22/2025 11:10 AM EST Office Visit [place] [facility] [address], [address] [place] [address] Lisa Hurtado, THELMA [address] [place] [address] documented as of this encounter Procedures Procedure Name Priority Date/Time Associated Diagnosis Comments CT NEURO OUTSIDE IMAGES 08/15/2024 8:41 PM EDT documented in this encounter Results * CT NEURO OUTSIDE IMAGES (08/15/2024 8:41 PM EDT) Anatomical Region Laterality Modality Computed Tomogra phy 08/15/2024 8:41 PM EDT us External Provider IMG CT [...] documented as of this encounter Care Teams Property And Casualty Insurance Agent Relationship Specialty Start Date End Date Madiha Villarreal APRN [address] [place] [address] PCP - General 07/29/20 Idris Jones MD [address] [place] [address] First Call Provider Interventional Cardiology 04/16/22 documented as of this encounter
--- OUTSIDE RECORDS SUMMARY | 2024-10-15 15:11 | XMS_ITS | Encounter Summary ---
Author Organization Healthcare Address [address] [place] [address] Care Team Providers Care Hydraulic Modeling Engineer Name Role Phone Madiha Villarreal Jolene MILNER Primary Care Provider +1- [phone] Idris Jones MD Unavailable [phone] Encounter Details Date Type Department Care Team (Late st Contact Info) Description 08/06/2011 Abstract [facility] Radiation [id number] [place] [address] Yumi Mccabe, RN [facility] Social History Tobacco Use Types Packs/Day Years [...] Visit Medical Office Building Urology [address] [facility], [address] [place] [address] Lisa Hurtado PA [address] [place] [address] 03/22/2025 11:10 AM EST Office Visit [place] [facility] [address], [address] [place] [address] Lisa Hurtado PA [address] [place] [address] documented as of this encounter Visit Diagnoses Not on filedocumented in this encounter Care Teams Hydraulic Modeling Engineer Relationship Specialty Start Date End Date Madiha Villarreal APRN [address] [place] [address] PCP - General 07/29/20 Idris Jones MD [address] [place] [address] First Call Provider Interventional Cardiology 04/16/22 documented as of this encounter
--- OUTSIDE RECORDS SUMMARY | 2024-10-15 15:11 | XMS_ITS | Encounter Summary ---
Author Organization Healthcare Address [address] [place] [address] Care Team Providers Care Stamping Operator Name Role Phone Madiha Villarreal APRN Primary Care Provider [phone]- [phone] Idris Jones MD Unavailable [phone] Encounter Details Date Type Department Care Team (Late st Contact Info) Description 10/02/2024 Telephone [place] [facility] [address], [address] [place] [address] Day, Lakesha D Social History Tobacco Use Types Packs/Day Years [...] drink first t alicja in the morning (EYE-ANIMAL SHELTER SUPERVISOR) to steady your nerves or to get rid of a hangover? 0 04/13/2022 CAGE Questionnaire Score 0 023 Comments No Sex and Gender Information Value Date Recorded Sex Assigned at Not on file Legal Sex Female 7:41 PM EDT Gender Identity Not on file Sexual Orientation Not on file documented as of this encounter Miscellaneous Notes * Telephone Encounter - Lakesha Woodruff Urszula - 10/02/2024 7:25 PM EDT Tried calling patient and there was no answer and was not able to leave a message. Was contacting patient to give her Angelique's message that she reviewed her imaging and that they would go over it further at her follow up but she did not see anything new or concerning. documented in this encounter Plan of Treatment Upcoming Encounters Date Type Department Care Team (Late st Contact Info) Description 11/11/2024 10:50 AM EDT Office Visit Medical Office Building Urology [address] [facility], [address] [place] [address] Lisa Hurtado PA [address] [address] 03/22/2025 11:10 AM EST Office Visit [place] [facility] [address], [address] [place] [address] Lisa Hurtado PA [address] [facility] [place] [address] documented as of this encounter Visit Diagnoses Not on filedocumented in this encounter Additional Health Concerns Assessment Noted Time A fall risk assessment has been complete d for the patient 06/06/2022 3:25 PM EDT A Body Mass Index follow-up plan has been documented for the patient 10/24/2022 5:18 PM EDT documented as of this encounter Care Teams Stamping Operator Relationship Specialty Start Date End Date Madiha Villarreal APRN [address] [place] [address] PCP - General 07/29/20 Idris Jones MD [address] [place] [address] First Call Provider Interventional Cardiology 04/16/22 documented as of this encounter
--- OUTSIDE RECORDS SUMMARY | 2024-10-15 15:11 | XMS_ITS | Encounter Summary ---
Author Organization Healthcare Address [address] [place] [address] Care Team Providers Care Sand Shoveler Name Role Phone Phil Madiha Fernández APRN Primary Care Provider [phone]- [phone] Idris Jones MD Unavailable [phone] Encounter Details Date Type Department Care Team ([facility] st Contact Info) Description 02/10/2024 Orders Only External Location [address] [place] [phone] Provider, External Social History Tobacco Use Types [...] drink first t alicja in the morning (EYE-OTHER SPORTS COACH OR INSTRUCTOR) to steady your nerves or to get [...] Visit Medical Office Building Urology [address] [facility], [address] [place] [address] Lisa Hurtado PA [address] [place] [address] 03/22/2025 11:10 AM EST Office Visit [place] [facility] [address], [address] [place] [address] Lisa Hurtado, THELMA [address] [place] [address] documented as of this encounter Procedures Procedure Name Priority Date/Time Associated Diagnosis Comments CT THORACIC OUTSIDE IMAGES 02/10/2024 1:48 PM EST documented in this encounter Results * CT THORACIC OUTSIDE IMAGES (02/10/2024 1:48 PM EST) Anatomical Region Laterality Modality Computed Tomogra phy 02/10/2024 1:48 PM EST us External Provider IMG CT PROCEDURES Final [...] documented as of this encounter Care Teams Sand Shoveler Relationship Specialty Start Date End Date Madiha Villarreal APRN [address] [place] [address] PCP - General 07/29/20 Idris Jones MD [address] [place] [address] First Call Provider Interventional Cardiology 04/16/22 documented as of this encounter
--- OUTSIDE RECORDS SUMMARY | 2024-10-15 15:11 | XMS_ITS | Encounter Summary ---
Author Organization Healthcare Address [address] [place] [address] Care Team Providers Care Clinical Audiologist Name Role Phone Phil Madiha Fernández APRN Primary Care Provider [phone]- [phone] Idris Jones MD Unavailable [phone] Encounter Details Date Type Department Care Team ([facility] st Contact Info) Description 08/15/2024 Orders Only External Location [address] [place] [phone] Provider, External Social History Tobacco Use Types [...] drink first t alicja in the morning (EYE-PARTS IDENTIFICATION TECHNICIAN) to steady your nerves or to get [...] Urology [address], [address] [place] [address] Lisa Hurtado PA [address] [place] [address] 03/22/2025 11:10 AM EST Office Visit [place] [facility] [address], 2[address] [place] [address] Lisa Hurtado, THELMA [address] [place] [address] documented as of this encounter Procedures Procedure Name Priority Date/Time Associated Diagnosis Comments CT NEURO OUTSIDE IMAGES 08/15/2024 8:46 PM EDT documented in this encounter Results * CT NEURO OUTSIDE IMAGES (08/15/2024 8:46 PM EDT) Anatomical Region Laterality Modality Computed Tomogra phy 08/15/2024 8:46 PM EDT us External Provider IMG CT [...] documented as of this encounter Care Teams Clinical Audiologist Relationship Specialty Start Date End Date Madiha Villarreal APRN [address] [place] [address] PCP - General 07/29/20 Idris Jones MD [address] [place] [address] First Call Provider Interventional Cardiology 04/16/22 documented as of this encounter
--- OUTSIDE RECORDS SUMMARY | 2024-10-15 15:11 | XMS_ITS | Encounter Summary ---
Author Organization Healthcare Address [address] [place] [address] Care Team Providers Care Sheep Farmer Name Role Phone Phil Madiha Fernández APRN Primary Care Provider [phone]- [phone] Idris Jones MD Unavailable [phone] Encounter Details Date Type Department Care Team ([facility] st Contact Info) Description 08/15/2024 Orders Only External Location [address] [place] [phone] Provider, External Social History Tobacco Use Types [...] drink first t alicja in the morning (EYE-MANUFACTURING ENGINEERING INTERN) to steady your nerves or to get [...] Urology [address], [address] [place] [address] Lisa Hurtado PA [address] [place] [address] 03/22/2025 11:10 AM EST Office Visit [place] [facility] [address], [address] [place] [address] Lisa Hurtado, THELMA [address] [place] [address] documented as of this encounter [...] documented as of this encounter Care Teams Sheep Farmer Relationship Specialty Start Date End Date Madiha Villarreal APRN [address] [place] [address] PCP - General 07/29/20 Idris Jones MD [address] [place] [address] First Call Provider Interventional Cardiology 04/16/22 documented as of this encounter
--- OUTSIDE RECORDS SUMMARY | 2024-10-15 15:11 | XMS_ITS | Encounter Summary ---
Author Organization Healthcare Address [address] [place] [address] Care Team Providers Care Mine Equipment Design Engineer Name Role Phone Phil Madiha Fernández APRN Primary Care Provider [phone]- [phone] Idris Jones MD Unavailable [phone] Encounter Details Date Type Department Care Team ([facility] st Contact Info) Description 08/15/2024 Orders Only External Location [address] [place] [phone] Provider, External Social History Tobacco Use Types [...] drink first t alicja in the morning (EYE-TOOL GRINDER OPERATOR EXTERNAL) to steady your nerves or to get [...] Urology [address], [address] [place] [address] Lisa Hurtado PA [address] [place] [address] 03/22/2025 11:10 AM EST Office Visit [place] [facility] [address], 2[address] [place] [address] Lisa Hurtado, THELMA [address] [place] [address] documented as of this encounter Procedures Procedure Name Priority Date/Time Associated Diagnosis Comments CT NEURO OUTSIDE IMAGES 08/15/2024 8:39 PM EDT documented in this encounter Results * CT NEURO OUTSIDE IMAGES (08/15/2024 8:39 PM EDT) Anatomical Region Laterality Modality Computed Tomogra phy 08/15/2024 8:39 PM EDT us External Provider IMG CT [...] documented as of this encounter Care Teams Mine Equipment Design Engineer Relationship Specialty Start Date End Date Madiha Villarreal APRN [address] [place] [address] PCP - General 07/29/20 Idris Jones MD [address] [place] [address] First Call Provider Interventional Cardiology 04/16/22 documented as of this encounter
--- OUTSIDE RECORDS SUMMARY | 2024-10-15 15:11 | XMS_ITS | Encounter Summary ---
Author Organization Healthcare Address [address] [place] [address] Care Team Providers Care Medical Manager Name Role Phone Phil Madiha Fernández APRN Primary Care Provider [phone]- [phone] Idris Jones MD Unavailable [phone] Encounter Details Date Type Department Care Team ([facility] st Contact Info) Description 08/15/2024 Orders Only External Location [address] [place] [phone] Provider, External Social History Tobacco Use Types [...] drink first t alicja in the morning (EYE-FANS CLERK) to steady your nerves or to get [...] Urology [address], [address] [place] [address] Lisa Hurtado PA [address] [place] [address] 03/22/2025 11:10 AM EST Office Visit [place] [facility] [address], [address] [place] [address] Lisa Hurtado, THELMA [address] [place] [address] documented as of this encounter Procedures Procedure Name Priority Date/Time Associated Diagnosis Comments CT NEURO OUTSIDE IMAGES 08/15/2024 8:37 PM EDT documented in this encounter Results * CT NEURO OUTSIDE IMAGES (08/15/2024 8:37 PM EDT) Anatomical Region Laterality Modality Computed Tomogra phy 08/15/2024 8:37 PM EDT us External Provider IMG CT [...] documented as of this encounter Care Teams Medical Manager Relationship Specialty Start Date End Date Madiha Villarreal APRN [address] [place] [address] PCP - General 07/29/20 Idris Jones MD [address] [place] [address] First Call Provider Interventional Cardiology 04/16/22 documented as of this encounter
--- OUTSIDE RECORDS SUMMARY | 2024-10-15 15:11 | XMS_ITS | Encounter Summary ---
Author Organization Healthcare Address [address] [place] [address] Care Team Providers Care Shipping Manager Name Role Phone Phil Madiha Fernández APRN Primary Care Provider [phone]- [phone] Idris Jones MD Unavailable [phone] Reason for Visit * Reason Onset Date Comments Appt Changes 09/21/2024 Encounter Details Date Type Department Care Team (Late st Contact Info) Description 09/21/2024 Telephone [place] [facility] [address], [address] [place] [address] Lisa Hurtado, PA [address] [place] [address] Appt Changes Social History Tobacco Use Types Packs/Day Years [...] drink first t alicja in the morning (EYE-DOUGH MOLDER HAND) to steady your nerves or to get rid of a hangover? 0 04/13/2022 CAGE Questionnaire Score 0 023 Comments No Sex and Gender Information Value Date Recorded Sex Assigned at Not on file Legal Sex Female 7:41 PM EDT Gender Identity Not on file Sexual Orientation Not on file documented as of this encounter Miscellaneous Notes * Telephone Encounter - Yumi Posada - 09/21/2024 3:07 PM EDT Unable to reach patient by phone regarding appt changes from 03/10 to 03/22 at 11:10 am in the [facility] at [address] [facility], mailed new reminder. documented in this encounter Plan of Treatment Upcoming Encounters Date Type Department Care Team (Late st Contact Info) Description 11/11/2024 10:50 AM EDT Office Visit Medical Office Building Urology [address] [facility], [address] [place] [address] Lisa Hurtado PA [address] [place] [address] 03/22/2025 11:10 AM EST Office Visit [facility] Urology [address], [address] [place] [address] Lisa Hurtado PA [address] [place] [address] documented as of this encounter Visit Diagnoses Not on filedocumented in this encounter Additional Health Concerns Assessment Noted Time A fall risk assessment has been complete d for the patient 06/06/2022 3:25 PM EDT A Body Mass Index follow-up plan has been documented for the patient 10/24/2022 5:18 PM EDT documented as of this encounter Care Teams Shipping Manager Relationship Specialty Start Date End Date Madiha Villarreal APRN [address] [place] [address] PCP - General 07/29/20 Idris Jones MD [address] [place] [phone] First Call Provider Interventional Cardiology 04/16/22 documented as of this encounter
--- OUTSIDE RECORDS SUMMARY | 2024-10-15 15:11 | XMS_ITS | Encounter Summary ---
Author Organization Healthcare Address [address] [place] [address] Care Team Providers Care Justice Court Deputy Clerk Name Role Phone Deric alonzocordell Fernández APRN Primary Care Provider [phone]- [phone] Idris Jonse MD Unavailable [phone] Encounter Details Date Type Department Care Team (Late st Contact Info) Description 08/15/2024 Orders Only External Location [address] [place] [address] Nickolas Hale MD [address] [address] Social History Tobacco Use Types Packs/Day Years [...] drink first t alicja in the morning (EYE-ACCESS ASSOC) to steady your nerves or to get [...] Upcoming Encounters Date Type Department Care Team ([facility] st Contact Info) Description 11/11/2024 10:50 AM EDT Office Visit Medical Office Building Urology [address] [facility], [address] [place] [address] Lisa Hurtado PA [address] [place] [address] 03/22/2025 11:10 AM EST Office Visit [place] [facility] [address], [address] [place] [address] Lisa Hurtado, PA [address] [place] [address] documented as of this encounter Procedures Procedure Name Priority Date/Time Associated Diagnosis Comments CT OUTSIDE IMAGES 08/15/2024 8:49 PM EDT documented in this encounter Results * CT OUTSIDE IMAGES (08/15/2024 8:49 PM EDT) Anatomical Region Laterality Modality Computed Tomogra phy 08/15/2024 8:49 PM EDT Nickolas Hale MD IM CT PROCEDURES Final Result documented in this encounter Visit Diagnoses Not on filedocumented in this encounter Additional Health Concerns Assessment Noted Time A fall risk assessment has been complete d for the patient 06/06/2022 3:25 PM EDT A Body Mass Index follow-up plan has been documented for the patient 10/24/2022 5:18 PM EDT documented as of this encounter Care Teams Justice Court Deputy Clerk Relationship Specialty Start Date End Date Maidha Villarreal APRN [address] [place] [address] PCP - General 07/29/20 Idris Jones MD [address] [place] [address] First Call Provider Interventional Cardiology 04/16/22 documented as of this encounter
--- OUTSIDE RECORDS SUMMARY | 2024-10-15 15:11 | XMS_ITS | Encounter Summary ---
Author Organization Healthcare Address [address] [place] [address] Care Team Providers Care Cement Gun Operator Name Role Phone Madiha Villarreal Jolene MILNER Primary Care Provider [phone]- [phone] Idris Jones MD Unavailable [phone] Encounter Details Date Type Department Care Team (Late st Contact Info) Description 08/06/2011 Abstract [facility] Radiation [address] [place] [address] Yumi Mccabe, RN [facility] Social [...] Visit Medical Office Building Urology [address] [facility], [address] [place] [address] Lisa Hurtado PA [address] [place] [address] 03/22/2025 11:10 AM EST Office Visit [place] [facility] [address], [address] [place] [address] Lisa Hurtado PA [address] [place] [address] documented as of this encounter Visit Diagnoses Not on filedocumented in this encounter Care Teams Cement Gun Operator Relationship Specialty Start Date End Date Madiha Villarreal APRN [address] [place] [address] PCP - General 07/29/20 Idris Jones MD [address] [place] [address] First Call Provider Interventional Cardiology 04/16/22 documented as of this encounter
[2024-10-15 15:12] VITALS: BP 135/66; PULSE 84; RESP 16; TEMP 36.6; O2SAT 98; BMI 33.9
--- NOTE | 2024-10-15 15:19 | XR_ITS ---
FINAL REPORT CLINICAL HISTORY: productive cough, SOA COMPARISON: 08/29/2022 FINDINGS: PA and lateral views of the chest were obtained. The cardiac and mediastinal silhouettes are within normal limits. Postoperative changes are noted in the region of the right breast, stable. The lungs are clear. There is no pleural effusion or pneumothorax. No acute osseous abnormality is identified. IMPRESSION: No radiographic evidence of acute cardiac or pulmonary disease. Reviewed, Interpreted and Dictated by Monalisa Riggs MD Transcribed by Farheen Correia Authenticated and [facility]
--- NOTE | 2024-10-15 15:21 | [facility].EDCP ---
Discharge Plan Disposition Patient Disposition: Home, Self-Care Condition: Good Prescriptions Prescriptions: New prednisone 20 mg tablet 40 mg PO DAILY 4 Days Qty: 8 0RF Rx Instructions: Start tomorrow 10/16/24 doxycycline hyclate 100 mg tablet 100 mg PO BID 7 Days Qty: 14 0RF Rx Instructions: Take first dose tomorrow morning 10/16/24 No Action clonazepam 0.5 mg tablet 0.5 mg PO DAILY PRN (Reason: Agitation) Qty: 30 2RF (DME) Dexcom G7 Grinder Outside Diameter Misc See Rx Instructions .Route Qty: 1 3RF Rx Instructions: As directed metoprolol tartrate 100 mg tablet 300 mg PO BID 90 Days Qty: 540 3RF (DME) Omnipod 5 G6-G7 Intro Kt(Gen5) Cartridge See Rx Instructions .Route Qty: 1 0RF Rx Instructions: As directed insulin lispro 100 unit/mL cartridge 1 sliding scale dose SQ USEASDIRECTD Qty: 15 3RF Rx Instructions: Max 80 units daily pantoprazole 40 mg tablet,delayed release (DR/EC) See Rx Instructions .ROUTE .COMPLEX Qty: 90 2RF Dose Instruction: TAKE ONE TABLET BY MOUTH EVERY DAY FOR acid reflux Rx Instructions: TAKE ONE TABLET BY MOUTH EVERY DAY FOR acid reflux bumetanide 1 mg tablet 1 mg PO BID Qty: 180 2RF atorvastatin 80 mg tablet See Rx Instructions .ROUTE .COMPLEX Qty: 90 3RF Dose Instruction: TAKE ONE TABLET BY MOUTH EVERY DAY Rx Instructions: TAKE ONE TABLET BY MOUTH EVERY DAY clopidogrel 75 mg tablet See Rx Instructions .ROUTE .COMPLEX Qty: 90 4RF Dose Instruction: TAKE ONE TABLET BY MOUTH EVERY DAY Rx Instructions: TAKE ONE TABLET BY MOUTH EVERY DAY (DME) Dexcom G7 Sensor Device See Rx Instructions .ROUTE .COMPLEX Qty: 3 3RF Dose Instruction: USE DIRECTED TO TEST BLOOD GLUCOSE LEVEL CHANGE SENSOR EVERY 10 DAYS Rx Instructions: USE DIRECTED TO TEST BLOOD GLUCOSE LEVEL CHANGE SENSOR EVERY 10 DAYS (DME) lancets [FreeStyle Lancets] 28 gauge misc See Rx Instructions .Route Qty: 100 1RF Rx Instructions: Three times daily or As directed (DME) blood-glucose meter [Accu-Chek Guide Glucose Meter] Misc See Rx Instructions .Route Qty: 1 0RF Rx Instructions: Test sugar three times daily or As directed spironolactone 25 mg tablet See Rx Instructions .ROUTE .COMPLEX Qty: 90 1RF Dose Instruction: TAKE ONE TABLET BY MOUTH EVERY DAY Rx Instructions: TAKE ONE TABLET BY MOUTH EVERY DAY valsartan 40 mg tablet See Rx Instructions .ROUTE .COMPLEX Qty: 90 1RF Dose Instruction: TAKE ONE TABLET BY MOUTH EVERY DAY Rx Instructions: TAKE ONE TABLET BY MOUTH EVERY DAY dapagliflozin propanediol [Farxiga] 10 mg tablet See Rx Instructions .ROUTE .COMPLEX Qty: 90 1RF Dose Instruction: TAKE ONE TABLET BY MOUTH EVERY DAY Rx Instructions: TAKE ONE TABLET BY MOUTH EVERY DAY cyclobenzaprine 10 mg tablet See Rx Instructions .ROUTE .COMPLEX Qty: 60 1RF Dose Instruction: TAKE ONE TABLET BY MOUTH EVERY 8 HOURS MAY CAUSE DROWSINESS Rx Instructions: TAKE ONE TABLET BY MOUTH EVERY 8 HOURS MAY CAUSE DROWSINESS insulin lispro 100 unit/mL solution See Rx Instructions .ROUTE .COMPLEX Qty: 10 3RF Dose Instruction: Sliding scale DOSE via continuous subcutaneous infusion. (MAX DAILY DOSE OF 80 UNITS. Rx Instructions: Sliding scale DOSE via continuous subcutaneous infusion. (MAX DAILY DOSE OF 80 UNITS. (DME) pen needle, diabetic 32 gauge x 5/32 needle See Rx Instructions .ROUTE .COMPLEX Qty: 100 4RF Dose Instruction: USE THREE TIMES DAILY OR DIRECTED with insulin injections Rx Instructions: USE THREE TIMES DAILY OR DIRECTED with insulin injections (DME) Omnipod 5 G6-G7 Pods (Gen 5) Cartridge See Rx Instructions .ROUTE .COMPLEX Qty: 5 3RF Dose Instruction: USE DIRECTED Rx Instructions: USE DIRECTED (DME) lancets [Accu-Chek Softclix Lancets] Misc See Rx Instructions .ROUTE .COMPLEX Qty: 200 6RF Dose Instruction: USE DIRECTED THREE TIMES DAILY OR DIRECTED Rx Instructions: USE DIRECTED THREE TIMES DAILY OR DIRECTED doxycycline hyclate 100 mg capsule 100 mg PO BID 5 Days Qty: 10 0RF prednisone 20 mg tablet 40 mg PO DAILY 5 Days Qty: 10 0RF albuterol sulfate [Ventolin HFA] 90 mcg/actuation HFA aerosol inhaler 2 puff INHALATION Q6HP PRN (Reason: SOA) Patient Comments: INHALE TWO PUFFS BY MOUTH EVERY 6 HOURS NEEDED FOR SHORTNESS OF BREATH fluticasone propion-salmeterol [Advair HFA] 45-21 mcg/actuation HFA aerosol inhaler 2 inh INHALATION BID Patient Comments: INHALE TWO PUFFS BY MOUTH TWICE DAILY --RINSE MOUTH AFTER USE-- Xarelto 15 mg tablet 15 mg PO DAILY Patient Comments: TAKE ONE TABLET BY MOUTH EVERY DAY benzonatate 100 mg capsule 100 mg PO TIDP PRN (Reason: Cough) Qty: 30 0RF Referrals Follow up/Referrals: Nickolas Matthew APRN [Primary Care Provider, Family Practice] - See instructions Jose Manuel Mejia MD [Physician, Pulmonology] - See instructions Activity Restrictions/Add. Instructions Additional Instructions/Restrictions: You were evaluated in the emergency department today. At this time, we feel you have a flareup of COPD secondary to likely a viral upper respiratory infection. Out of an abundance of precaution given your history of pneumonia, we are prescribing you an antibiotic called doxycycline. I am also prescribing a prednisone oral steroid. Please follow-up closely with your primary care provider as well as with pulmonology. Return to the emergency department for new or worsening symptoms. Clinical Impressions Clinical Impression: Acute exacerbation of chronic obstructive pulmonary disease, URI (upper respiratory infection) Stand Alone Forms Stand Alone Forms: Work/School Release Instructions Patient Instructions: DI for Chronic Obstructive Pulmonary Disease, DI for Viral Upper Respiratory Infection -- Adult, DI for Shortness of Breath Print Language Print Language: [place] Discharge ED Provider: Michelle Sanchez HPI General Chief Complaint: Shortness of Breath/Dyspnea Stated Complaint: SOA,Cough,congestion Time Seen by Provider: 10/15/24 15:15 Mode of Arrival: Ambulatory Source of Information: Patient Description of Symptoms (Recalled from ER Triage Doc. by RN): patient states she has had a cough shortness of breath and weak for one week History of Present Illness HPI narrative: This patient is a 63-year-old female with a history of COPD not on home oxygen, hypertension, lipidemia, diabetes, CHF, PAD, renal artery stenosis, ADRIANA presenting to the emergency department for evaluation of concern for cough and shortness of breath for 1 week. Patient states that she think she has pneumonia because she has had a runny nose, chest congestion, productive cough, and chest pain with coughing for the last week and a half. She states that this feels similar to when she has had pneumonia in the past. No other concerns noted such as belly pain, vomiting, changes to bowel movements, leg pain or swelling. 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-glucose,exercise equipment specialist,cont #1 ea 06/19/23 (Dexcom G7 Grinder Outside Diameter) benzonatate 100 mg capsule 100 mg PO TIDP PRN Cough #30 caps 12/17/23 metoprolol tartrate 100 mg tablet 300 mg (3 x 100 mg) PO BID 90 days 02/19/24 #540 tabs pantoprazole 40 mg tablet,delayed See Rx Instructions .Route 02/19/24 release .COMPLEX #90 tabs insulin lispro 100 unit/mL 1 sliding scale dose SQ 05/13/24 subcutaneous cartridge USEASDIRECTD #15 mL insulin pump cartridge,auto #1 ea 05/13/24 dose,BT,G6/G7 with controller subcutaneous (Omnipod 5 G6-G7 Intro Kit(Gen 5) subcutaneous cartridge and controller) bumetanide 1 mg tablet 1 mg PO BID #180 tabs 05/17/24 atorvastatin 80 mg tablet See Rx Instructions .Route 05/26/24 .COMPLEX #90 tabs clopidogrel 75 mg tablet See Rx Instructions .Route 05/26/24 .COMPLEX #90 tabs blood-glucose sensor (Dexcom G7 #3 ea 06/29/24 Sensor device) blood-glucose meter (Accu-Chek #1 ea 07/08/24 Guide Glucose Meter) lancets 28 gauge (FreeStyle #100 ea 07/08/24 Lancets) clonazepam 0.5 mg tablet 0.5 mg PO DAILY PRN Agitation #30 07/14/24 tabs dapagliflozin propanediol 10 mg See Rx Instructions .Route 07/20/24 tablet (Farxiga) .COMPLEX #90 tabs doxycycline hyclate 100 mg capsule 100 mg PO BID 5 days #10 caps 07/20/24 prednisone 20 mg tablet 40 mg (2 x 20 mg) PO DAILY 5 days 07/20/24 #10 tabs spironolactone 25 mg tablet See Rx Instructions .Route 07/20/24 .COMPLEX #90 tabs valsartan 40 mg tablet See Rx Instructions .Route 07/20/24 .COMPLEX #90 tabs cyclobenzaprine 10 mg tablet See Rx Instructions .Route 07/22/24 .COMPLEX #60 tabs insulin lispro 100 unit/mL See Rx Instructions .Route 08/23/24 subcutaneous solution .COMPLEX #10 mL pen needle, diabetic 32 gauge x #100 ea 08/26/24 insulin pump cart,auto,BT,G6/7 #5 ea 08/28/24 (Omnipod 5 G6-G7 Pods (Gen 5) subcutaneous cartridge) lancets (Accu-Chek Softclix #200 ea 10/07/24 Lancets) doxycycline hyclate 100 mg tablet 100 mg PO BID 7 days #14 tabs 10/15/24 prednisone 20 mg tablet 40 mg (2 x 20 mg) PO DAILY 4 days 10/15/24 #8 tabs Allergies Allergy/AdvReac Type Severity Reaction Status Date / Time oxycodone (From PERCOCET) Allergy Unknown Unknown Verified 07/14/24 15:36 allergy reaction isosorbide (From Imdur) AdvReac Severe Headache Verified 07/14/24 15:36 [facility] Disclaimer: The information contained in this section may have been updated after the patient was seen, as this information can be updated by other users. Medical History Sinusitis Cough Pleural effusion Encounter for screening for malignant neoplasm of lung Lung nodule Smoking greater than 30 pack years COPD mixed type Dyspnea on exertion Chronic a-fib History of COVID-19 Sleep apnea Migraine History of gastroesophageal reflux (GERD) Diabetes mellitus, type 2 History of left heart catheterization (LHC) Breast cancer Cardiac murmur Atypical angina Abnormal stress test Neuropathic pain Cardiomyopathy Left carotid bruit Tobacco dependence syndrome ADRIANA (obstructive sleep apnea) Diastolic dysfunction Ex-smoker Abnormal EKG HTN (hypertension) Tachycardia induced cardiomyopathy Fatigue IDDM (insulin dependent diabetes mellitus) Neuropathy Congestive heart failure Diabetes mellitus Surgical History History of right heart catheterization (RHC) Tubal ligation status History of tonsillectomy Family History Other Family history of COPD (chronic obstructive pulmonary disease) Family history of GERD Family history of cancer Family history of diabetes mellitus type II Family history of hyperlipidemia Family history of hypertension Family history of migraine headaches Family history of myocardial infarction Family history of stroke Social History Smoking Status: Current every day smoker tobacco type: cigarettes packs per day: 1 second hand exposure: No alcohol intake: never counseling provided: none substance use type: marijuana current occupational status: retired, disabled and other Travel in the last 8 weeks?: None household members: family and children housing: house current occupational exposures/hazards: No caffeine: No Have you lived/traveled outside [place] in past 30 days?: No Contact w/someone who lives/traveled outside US past 30 days?: No Exposure to someone with infectious disease in past 14 days?: No Do you have a fever (greater than 100.4 F or 38 C)?: No Have you tested positive for COVID-19?: No Exposed to someone with COVID-19 in past 14 days?: No Do you have a sore throat?: No Do you have a cough?: Yes Do you have any weakness?: No Do you have any diarrhea?: No Are you experiencing any unusual bleeding?: No Do you have any muscle aches/pain?: No Do you have any abdominal pain?: No Are you experiencing loss of taste or smell?: No Other Medical History Have you received the Flu Vaccine for this season: No Have you received the Pneumonia Vaccine: Yes ROS Obtained: Yes All systems reviewed & no additional complaints except as documented Physical Exam General General appearance: alert and in no apparent distress Head Head exam: atraumatic and normocephalic Eye Eye exam: Present normal appearance, PERRL and EOMI ENT ENT exam: Present normal exam, normal oropharynx, mucous membranes moist and normal external ear exam Neck Neck exam: Present normal inspection, full ROM and trachea midline; Absent tenderness Chest Chest inspection: Present normal inspection and symmetric chest wall rise; Absent tenderness Respiratory Respiratory exam: Present wheezes and other (No increased work of breathing. Bilateral wheezing and rhonchi, especially in the bases); Absent respiratory distress, stridor or accessory muscle use Cardiovascular Cardiovascular exam: Present regular rate and normal rhythm Abdominal Exam Abdominal exam: Present soft; Absent distention, tenderness or guarding Extremities Exam Extremities exam: Present normal inspection, full ROM and normal capillary refill; Absent tenderness or edema Back Exam Back exam: Present normal inspection and full ROM; Absent tenderness Neurological Exam Neurological exam: Present alert, oriented X3, CN II-XII intact and normal gait; Absent motor sensory deficit Psychiatric Psychiatric exam: Present normal affect and normal mood Skin Skin exam: Present warm and dry HEART Score HEART Score HEART Score assessment performed?: Yes History (anamnesis): Slightly suspicious ECG: Normal Age: 45-65 years Risk factors: Atherosclerosis history Troponin: </= normal limit HEART Score: 3 Critical Care Critical Care Time Critical Care Time: No Medical Decision Making Gianfranco Inquiry Pt receiving controlled substance: No Vital Signs Vital Signs: 10/15/24 15:12 10/15/24 16:35 10/15/24 16:35 Temperature 97.8 F Temperature Source Oral Pulse Rate 79 74 Pulse Rate [Right Radial] 84 Respiratory Rate 16 Blood Pressure Blood Pressure [Right Arm] 135/66 Blood Pressure Mean [Right Arm] 89 Blood Pressure Source Blood Pressure Source [Right Arm] Automatic Cuff Blood Pressure Position Blood Pressure Position [Right Arm] Sitting 02 Sat by Pulse Oximetry 98 Oxygen Delivery Method Room Air 10/15/24 17:22 Temperature 97.8 F Temperature Source Oral Pulse Rate 76 Pulse Rate [Right Radial] Respiratory Rate 16 Blood Pressure 119/59 L Blood Pressure [Right Arm] Blood Pressure Mean [Right Arm] Blood Pressure Source Automatic Cuff Blood Pressure Source [Right Arm] Blood Pressure Position Sitting Blood Pressure Position [Right Arm] 02 Sat by Pulse Oximetry Oxygen Delivery Method Room Air Lab Data Labs: Lab Results 10/15/24 15:19: WBC 8.1, RBC 5.35, Hgb 15.5, Hct 48.5 H, MCV 90.7, MCH 29.0, MCHC 32.0, RDW 14.8, Plt Count 216, MPV 9.6, Neut % (Auto) 58.7, Lymph % (Auto) 31.7, Campbell % (Auto) 7.1, Eos % (Auto) 1.8, Baso % (Auto) 0.5, Neut # (Auto) 4.8, Lymph # (Auto) 2.6, Campbell # (Auto) 0.6, Eos # (Auto) 0.2, Baso # (Auto) 0.0, Sodium 133 L, Potassium 4.2, Chloride 99, Carbon Dioxide 30, Anion Gap 8.2, BUN 34 H, Creatinine 1.60 H, Estimated Creat Clear 53, Estimated GFR 32 L, Est GFR ( Amer) 39 L, Glucose 140 H, Calcium 9.6, Total Bilirubin 0.8, AST 36, ALT 32, Alkaline Phosphatase 153 H, Troponin I < 0.01, NT-Pro-B Natriuret Pep 2100 H, Total Protein 7.4, Albumin 3.5, Globulin 3.9 H, Albumin/Globulin Ratio 0.9 L, HCV Ab JAIRO w/Rflx PCR Qn Negative, HIV Ag/Ab Combo Qual Negative 10/15/24 15:31: SARS-CoV-2 (PCR) Not detected, Influenza A Untype (PCR) Not detected, Influenza Type B (PCR) Not detected 10/15/24 15:19 10/15/24 15:19 Response Orders (Tests/Meds): ED MEDICATIONS Discontinued Medications Generic Name Dose Route Start Last Admin Trade Name Freq PRN Reason Stop Dose Admin Albuterol/Ipratropium 3 ml 10/15/24 15:19 10/15/24 16:35 Ipratropium/Albuterol 3 Ml Neb IH 10/15/24 15:20 3 ml ONCE ONE Administration Doxycycline Hyclate 100 mg 10/15/24 15:21 10/15/24 15:40 Doxycycline Hycl 100 Mg Tablet PO 10/15/24 15:22 100 mg ONCE ONE Administration Prednisone 40 mg 10/15/24 15:19 10/15/24 15:40 Prednisone 20mg Tab PO 10/15/24 15:20 40 mg ONCE ONE Administration ORDERS Category Date Time Status CXR 2 view (NOT portable) [XR chest 2V] Stat Exams 10/15/24 15:19 Completed BNP [NT Pro Brain Natriuretic Pep.] Stat Lab 10/15/24 15:19 Completed CBC w/Auto Diff [Complete Blood Count Auto Diff] Stat Lab 10/15/24 15:19 Completed CMP [Comprehensive Metabolic Panel] Stat Lab 10/15/24 15:19 Completed HIV Combo Stat Lab 10/15/24 15:19 Completed Hepatitis C Ab Qual. W/ RFX Stat Lab 10/15/24 15:19 Completed Rapid PCR Covid and Flu A/B Stat Lab 10/15/24 15:31 Completed Trop I [Troponin I] Stat Lab 10/15/24 15:19 Completed ECG Data Tracing #1: Attestation: I reviewed this ECG and interpreted as documented below: ECG Narrative: Atrial fibrillation with a ventricular of [address] changes concerning for STEMI. Incomplete right bundle branch ECG initial impression date: 10/15/24 ECG initial impression time: 15:38 MDM Narrative Medical Decision Narrative: In summary, this patient is a 63-year-old female presenting to the Emergency Department for evaluation of wheezing, cough, shortness of breath, and chest pain for the last week and a half. She think she has pneumonia. Differential diagnoses considered include but are not limited to viral syndrome, pneumonia, COPD exacerbation, ACS, CHF exacerbation among others. Ruling out the most morbid conditions drove assessment. It should be noted patient's history includes COPD, CHF, hypertension, hyperlipidemia, diabetes which may or may not be at goal therapy. This complicates all aspects of care by increasing patient's risk for morbidity. I reviewed patient's past medical records and noted prior evaluations for COPD exacerbation in the past. On exam, the patient is sitting upright in no acute distress. She has no significantly increased work of breathing with reassuring vitals noted. She does have bibasilar wheezing and rhonchi. Workup included CBC, CMP, troponin, BNP, viral swab, chest x-ray, EKG. she was given a DuoNeb as well as oral prednisone and doxycycline based on prior respiratory cultures.. EKG was obtained demonstrating atrial fibrillation, which she chronically has. She is on Xarelto for this. I independently interpreted chest x-ray prior to the radiologist read and noted no large focal consolidation concerning for pneumonia. Please see their read for final interpretation. Labs were obtained that demonstrated reassuring CBC with no significant leukocytosis or anemia, reassuring chemistry with exception of mild hyponatremia. Kidney function is around her baseline. Troponin is negative. On reassessment, patient is again resting comfortably with no increased work of breathing. I feel she likely has COPD exacerbation and is appropriate for discharge home with close follow-up with PCP and pulmonology and prescriptions for prednisone and doxycycline. Strict return precautions were given
[2024-10-15 15:27] LABS: Hematocrit 48.5 % (37.0-47.0); Hemoglobin 15.5 g/dL (12.2-16.2); Immature Granulocytes % 0.2 %; Mean Corpuscular HGB Conc 32.0 g/dL (31.8-35.4); Mean Corpuscular Hemoglobin 29.0 pg (27.0-31.2); Mean Corpuscular Volume 90.7 fl (81-99); Nucleated Red Blood Cells % 0 %; Platelet Count 216 K/mm3 (142-424); Red Blood Count 5.35 M/mm3 (4.20-5.40); Red Cell Distribution Width-SD 49.3 fL; White Blood Count 8.1 K/mm3 (4.8-10.8)
[2024-10-15 15:33] LABS: Coronavirus 19, PCR Not Detected (NotDetected); Influenza A, PCR Not Detected (NotDetected); Influenza B, PCR Not Detected (NotDetected)
--- NOTE | 2024-10-15 15:36 | ECG_ITS ---
APPROVED REPORT Exam: Resting ECG HR:77 bpm ECG Measurements Heart Rate 77 AXES QRSd 100 QRS -36 QT 406 T 69 QTc 438 Conclusion ATRIAL FIBRILLATION LEFT AXIS DEVIATION [QRS AXIS < -30] INCOMPLETE RIGHT BUNDLE BRANCH BLOCK [90+ ms QRS DURATION, TERMINAL R IN V1/V2, 40+ ms S IN I/aVL/V4/V5/V6] MODERATE ST DEPRESSION [0.05+ mV ST DEPRESSION] No STEMI Electronically signed by : JEANE WOODRUFF, 10/17/2024 06:42:38
[2024-10-15 15:40] LABS: Albumin Level 3.5 g/dl (3.5-5.0); Chloride 99 mmol/L (98-107); Potassium 4.2 mmoL/L (3.5-5.1); Sodium 133 mmol/L (136-145)
[2024-10-15] MEDS: DOXYCYCLINE HYCL 100 MG TABLET PO (15:40)
[2024-10-15 15:43] LABS: Alanine Aminotransferase 32 U/L (12-78); Albumin/Globulin Ratio 0.9 (1.1-1.8); Alkaline Phosphatase 153 U/L (38-126); Anion Gap 8.2 mEq/L (5-15); Aspartate Amino Transferase 36 U/L (14-36); Bilirubin,Total 0.8 mg/dl (0.2-1.3); Blood Urea Nitrogen 34 mg/dl (7-17); Calcium 9.6 mg/dl (8.4-10.2); Carbon Dioxide 30 mmol/L (22.0-30.0); Creatinine Clearance Estimated 53 mL/min (50-200); Creatinine,Serum 1.60 mg/dl (0.52-1.04); Estimated Glomerular Filt Rate 32 ml/min (>60); GFR (African American) 39 ML/MIN (>60); Globulin 3.9 g/dL (1.3-3.2); Glucose 140 mg/dl (74-100); Total Protein,Serum 7.4 g/dl (6.3-8.2)
[2024-10-15 15:53] LABS: NT Pro Brain Natriuretic Pep. 2100 pg/mL (0-125)
[2024-10-15 15:55] LABS: Troponin I < 0.01 ng/ml (0.00-0.034)
[2024-10-15 16:35] VITALS: PULSE 74; PULSE 79
[2024-10-15] MEDS: IPRATROPIUM/ALBUTEROL 3 ML NEB IH (16:35)
[2024-10-15 16:47] LABS: Hepatitis C Ab Qual. W/ RFX NEGATIVE (Negative)
[2024-10-15 17:22] VITALS: BP 119/59; PULSE 76; RESP 16; TEMP 36.6; O2SAT 95
== END 2024-10-15 17:23 | disposition home or self-care (01) ==
PROVIDERS: Emergency Provider Emergency Medicine; PCP Nurse Practitioner Family
DX: J44.1 Chronic obstructive pulmonary disease with (acute) exacerbation (principal); J06.9 Acute upper respiratory infection, unspecified; I11.0 Hypertensive heart disease with heart failure; E78.5 Hyperlipidemia, unspecified; I50.9 Heart failure, unspecified; F17.210 Nicotine dependence, cigarettes, uncomplicated
CPT/HCPCS: 71046; 80053; 83880; 84484; 85025; 86803; 87389; 87636; 93005; 99285

== ENCOUNTER 2024-10-21 14:33 | Observation (INO) | payer MEDICARE, MEDICAID, SELFPAY ==
[2024-10-21] VITALS (14 sets, daily range): BP systolic 105–180; BP diastolic 65–101; PULSE 60–108; RESP 14–20; TEMP 36.4–37.2; O2SAT 93–100; BMI 33.9; BMI 32.2
--- NOTE | 2024-10-21 14:37 | ECG_ITS ---
APPROVED REPORT Exam: Resting ECG HR:99 bpm ECG Measurements Heart Rate 99 AXES QRSd 102 QRS -4 QT 371 T 74 QTc 427 Conclusion ATRIAL FIBRILLATION NONSPECIFIC ST & T-WAVE ABNORMALITY ABNORMAL RHYTHM ECG No STEMI Electronically signed by : JEANE WOODRUFF, 10/22/2024 06:41:59
--- NOTE | 2024-10-21 14:39 | PC.NURSE ---
Patients FSBS is [id number]
--- NOTE | 2024-10-21 14:45 | CT_ITS ---
PROCEDURE INFORMATION: Exam: CTA Chest With Contrast Exam date and time: 10/21/2024 5:04 PM Age: 63 years old Clinical indication: Shortness of breath TECHNIQUE: Imaging protocol: Computed tomographic angiography of the chest with contrast. Exam focused on the arteries. 3D rendering (Not supervised by radiologist): MIP and/or 3D reconstructed images were created by the technologist. Radiation optimization: All CT scans at this facility use at least one of these dose optimization techniques: automated exposure control; mA and/or kV adjustment per patient size (includes targeted exams where dose is matched to clinical indication); or iterative reconstruction. Contrast material: ISO; Contrast volume: 80 ml; Contrast route: INTRAVENOUS (IV); COMPARISON: CR XR CHEST 2V 10/15/2024 3:14 PM FINDINGS: Pulmonary arteries: No pulmonary emboli. Aorta: Unremarkable. No aortic aneurysm. No aortic dissection. Renal arteries: Right renal arterial stent is partially imaged. Other arteries: The arteries demonstrate severe atherosclerotic disease. Trachea: Secretions fill some of the airways bilaterally with left lower lobe predominance. Lungs: Bilateral apical scarring. Mild scarring and atelectasis in the lower lungs. Mild centrilobular and paraseptal emphysema. Right apical fibrotic changes suggesting radiation treatment. Pleural spaces: Unremarkable. No pneumothorax. No pleural effusion. Heart: Cardiomegaly. Mitral valve calcifications. Reflux of contrast into the hepatic veins suggests right heart dysfunction. Coronary arteries: Coronary artery calcifications. Lymph nodes: Unremarkable. No enlarged lymph nodes. Pancreas: Mild pancreatic atrophy. Adrenal glands: Left adrenal nodules measuring up to 2.2 cm consistent with lipid rich adenomas. Kidneys: There is a left renal nodule measuring 2.2 cm image 353 series 2 that is incompletely characterized. Bones/joints: Unremarkable. No acute fracture. Soft tissues: Status post right mastectomy. Other findings: Stigmata of old granulomatous disease. IMPRESSION: 1. No pulmonary emboli. 2. Secretions fill some of the airways bilaterally with left lower lobe predominance. This could correlate with aspiration pneumonitis, smoking related lung injury, or atypical infection. 3. Reflux of contrast into the hepatic veins suggests significant right heart dysfunction. 4. There is a left renal nodule measuring 2.2 cm image 353 series 2 that is incompletely characterized. If not previously performed, recommend outpatient renal ultrasound. COMMENTS: 1. Consistent with the [employer] [place] [employer]'s Incidental Findings Committee white paper (J Am Aye Radiol 2018): Any incidental renal lesion less than 1 cm or classified as too small to characterize, or any incidental cystic renal lesion characterized as simple-appearing, is likely benign. No follow-up imaging is recommended for these lesions per consensus recommendations based on imaging criteria. 2. The presence of pulmonary emphysema on CT is an independent risk factor for lung cancer. In the absence of a history or active diagnosis of lung cancer, it is recommended that this patient with emphysema be evaluated for enrollment in a low dose CT lung cancer screening program.
--- OUTSIDE RECORDS SUMMARY | 2024-10-21 14:46 | XMS_ITS | Encounter Summary ---
Author Organization Healthcare Address [address] [place] [address] Care Team Providers Care Glass Sander Name Role Phone Rudybal Madiha Fernández APRN Primary Care Provider [phone]- [phone] Idris Jones MD Unavailable [phone] Reason for Visit * Reason Onset Date Comments Image/Report Request 09/25/2024 2nd Request to Reports 09/25/2024 Rcvd Records 09/25/2024 Encounter Details Date Type Department Care Team (Late st Contact Info) Description 09/25/2024 Telephone [facility] [address], [address] [place] [address] Lisa Hurtado, THELMA [address] [place] [address] Image/Report Request; 2nd Request to [...] drink first t alicja in the morning (EYE-SUPERVISOR CORE SHOP) to steady your nerves or to get [...] Received images, faxed another request for reports [phone] * Telephone Encounter - Yumi Posada - 09/25/2024 1:19 PM EDT Faxed request to [facility] for Ct and MRI images/report * Telephone Encounter - Ileana Horvath - 09/25/2024 9:12 AM EDT Clinical Concern/Question Reason for Call: Patient went to [facility], she thinks it has been a couple weeks and she says they did an MRI and she think CT scan. She is asking if Ms. Hurtado needs to see them? Requesting a call back. Best contact number: [phone] (mobile) if you call today she says call [phone] Optimal time of day to reach caller: ANYTIME Additional comments/information from caller: None Note: Please do not reply to this message. Follow-up communication and further actions as a result of this message need to be communicated with the patient directly, if the patient is not active onMyChart. If the patient is active on MyChart, they will receive notification of the communication/outcome via [employer]. documented in this encounter Plan of Treatment Upcoming Encounters Date Type Department Care Team ([facility] Contact Info) Description 11/11/2024 10:50 AM EDT Office Visit Medical Office Building Urology [address], [address] [place] [address] Lisa Hurtado PA [address] [place] [address] 03/22/2025 11:10 AM EST Office [facility] [address], 2[address] [place] [address] Lisa Hurtado PA [address] [place] [address] documented as of this encounter Visit Diagnoses Not on filedocumented in this encounter Additional Health Concerns Assessment Noted Time A fall risk assessment has been complete d for the patient 06/06/2022 3:25 PM EDT A Body Mass Index follow-up plan has been documented for the patient 10/24/2022 5:18 PM EDT documented as of this encounter Care Teams Glass Sander Relationship Specialty Start Date End Date Madiha Villarreal APRN [address] [place] [address] PCP - General 07/29/20 Idris Jones MD [address] [place] [phone] First Call Provider Interventional Cardiology 04/16/22 documented as of this encounter
--- OUTSIDE RECORDS SUMMARY | 2024-10-21 14:46 | XMS_ITS | Encounter Summary ---
Author Organization Healthcare Address [address] [place] [address] Care Team Providers Care Valuer Name Role Phone Madiha Villarreal Jolene MILNER Primary Care Provider [phone]- [phone] Idris Jones MD Unavailable [phone] Encounter Details Date Type Department Care Team (Late st Contact Info) Description 08/06/2011 Abstract [facility] [id number] [place] [address] Yumi Mccabe, RN [facility] Social [...] Visit Medical Office Building Urology [address] [facility], [address] [place] [address] Lisa Hurtado PA [address] [place] [address] 03/22/2025 11:10 AM EST Office Visit [place] [facility] [address], 2nd [place] [address] iLsa Hurtado PA [address] [place] [address] documented as of this encounter Visit Diagnoses Not on filedocumented in this encounter Care Teams Valuer Relationship Specialty Start Date End Date Madiha Villarreal APRN [address] [place] [address] PCP - General 07/29/20 Idris Jones MD [address] [place] [address] First Call Provider Interventional Cardiology 04/16/22 documented as of this encounter
--- OUTSIDE RECORDS SUMMARY | 2024-10-21 14:46 | XMS_ITS | Clinical Summary ---
Author Organization [facility] Address [address] [place] [id number] Care Team Providers Care Domestic Violence Advocate Name Role Phone Gopi Razo MD Primary Care Provider [phone] Allergies No known active allergies Medications cyclobenzaprine [...] ( season) 2023 INFLUENZA VACCINE 12/16/[address] [facility] Care Teams Domestic Violence Advocate Relationship Specialty Start Date End Date Gopi Razo MD [address] [facility] [address] [place] [address] PCP - General Family Medicine 04/27/16
--- OUTSIDE RECORDS SUMMARY | 2024-10-21 14:46 | XMS_ITS | Encounter Summary ---
Author Organization Healthcare Address [address] [place] [address] Care Team Providers Care Packer Sausage And Wiener Name Role Phone Phil Madiha Fernández APRN Primary Care Provider [phone]- [phone] Idris Jones MD Unavailable [phone] Encounter Details Date Type Department Care Team ([facility] st Contact Info) Description 08/15/2024 Orders Only External Location [address] [place] [phone] Provider, External Social History Tobacco Use Types [...] drink first t alicja in the morning (EYE-POLE INCISOR OPERATOR) to steady your nerves or to [...] Urology [address], [address] [place] [address] Lisa Hurtado PA [address] [place] [address] 03/22/2025 11:10 AM EST Office Visit [facility] [address], 2[address] [place] [address] Lisa Hurtado, THELMA [address] [place] [address] documented as of this encounter [...] documented as of this encounter Care Teams Packer Sausage And Wiener Relationship Specialty Start Date End Date Madhia Villarreal APRN [address] [place] [address] PCP - General 07/29/20 Idris Jones MD [address] [place] [address] First Call Provider Interventional Cardiology 04/16/22 documented as of this encounter
--- OUTSIDE RECORDS SUMMARY | 2024-10-21 14:46 | XMS_ITS | Encounter Summary ---
Author Organization Healthcare Address [address] [place] [address] Care Team Providers Care Tribal Judge Name Role Phone Phil Madiha Fernández APRN Primary Care Provider [phone]- [phone] Idris Jones MD Unavailable [phone] Reason for Visit * Reason Onset Date Comments Appt Changes 09/21/2024 Encounter Details Date Type Department Care Team (Late st Contact Info) Description 09/21/2024 Telephone [place] [facility] [address], 2nd [place] [address] Lisa Hurtado, PA [address] [place] [address] Appt Changes Social History Tobacco [...] drink first t alicja in the morning (EYE-DIRECTOR OF TECHNOLOGY) to steady your nerves or to get [...] to 03/22 at 11:10 am in the [facility] at [address] [facility], [address], mailed new reminder. documented in this encounter Plan of Treatment Upcoming Encounters Date Type Department Care Team (Late st Contact Info) Description 11/11/2024 10:50 AM EDT Office Visit Medical Office Building Urology [address] [facility], [address] [place] [address] Lisa Hurtado PA [id number] [place] [address] 03/22/2025 11:10 AM EST Office Visit [facility] [address], 2nd [place] [address] Lisa Hurtado PA [id number] [place] [address] documented as of this encounter Visit Diagnoses Not on filedocumented in this encounter Additional Health Concerns Assessment Noted Time A fall risk assessment has been complete d for the patient 06/06/2022 3:25 PM EDT A Body Mass Index follow-up plan has been documented for the patient 10/24/2022 5:18 PM EDT documented as of this encounter Care Teams Tribal Judge Relationship Specialty Start Date End Date Madiha Villarreal APRN [address] [place] [address] PCP - General 07/29/20 Idris Jones MD [address] [place] [phone] First Call Provider Interventional Cardiology 04/16/22 documented as of this encounter
--- OUTSIDE RECORDS SUMMARY | 2024-10-21 14:46 | XMS_ITS | Encounter Summary ---
Author Organization Healthcare Address [address] [place] [address] Care Team Providers Care Stained Glass Artist Name Role Phone Madiha Villarreal APRN Primary Care Provider [phone]- [phone] Idris Jones MD Unavailable [phone] Encounter Details Date Type Department Care Team (Late st Contact Info) Description 10/02/2024 Telephone [place] [facility] [address], 2nd [place] [address] Day, Lakesha D Social History [...] drink first t alicja in the morning (EYE-SHIP PILOT DISPATCHER) to steady your nerves or to get [...] Visit Medical Office Building Urology [address] [facility], [address] [place] [address] Lisa Hurtado PA [address] [address] 03/22/2025 11:10 AM EST Office Visit [place] [facility] [address], [address] [place] [address] Lisa Hurtado PA [address] [facility] [place] [address] documented as of this encounter Visit Diagnoses Not on filedocumented in this encounter Additional Health Concerns Assessment Noted Time A fall risk assessment has been complete d for the patient 06/06/2022 3:25 PM EDT A Body Mass Index follow-up plan has been documented for the patient 10/24/2022 5:18 PM EDT documented as of this encounter Care Teams Stained Glass Artist Relationship Specialty Start Date End Date Madiha Villarreal APRN [address] [place] [address] PCP - General 07/29/20 Idris Jones MD [address] [place] [phone] First Call Provider Interventional Cardiology 04/16/22 documented as of this encounter
--- OUTSIDE RECORDS SUMMARY | 2024-10-21 14:46 | XMS_ITS | Encounter Summary ---
Author Organization Healthcare Address [address] [place] [address] Care Team Providers Care Molecular Physicist Name Role Phone Phil Madiha Fernández APRN Primary Care Provider [phone]- [phone] Idris Jones MD Unavailable [phone] Encounter Details Date Type Department Care Team ([facility] st Contact Info) Description 08/15/2024 Orders Only External Location [address] [place] [address] Provider, External Social History Tobacco Use Types [...] drink first t alicja in the morning (EYE-LABOURERS) to steady your nerves or to get [...] Urology [address], [address] [place] [address] Lisa Hurtado PA [address] [place] [address] 03/22/2025 11:10 AM EST Office Visit [facility] [address], 2nd [place] [address] Lisa Hurtado, THELMA [address] [place] [address] documented as of this encounter [...] documented as of this encounter Care Teams Molecular Physicist Relationship Specialty Start Date End Date Madiha Villarreal APRN [address] [place] [address] PCP - General 07/29/20 Idris Jones MD [address] [place] [address] First Call Provider Interventional Cardiology 04/16/22 documented as of this encounter
--- OUTSIDE RECORDS SUMMARY | 2024-10-21 14:46 | XMS_ITS | Encounter Summary ---
Author Organization Healthcare Address [address] [place] [address] Care Team Providers Care Health Science Instructor Name Role Phone Phil Madiha Fernández APRN Primary Care Provider [phone]- [phone] Idris Jones MD Unavailable [phone] Encounter Details Date Type Department Care Team ([facility] st Contact Info) Description 08/15/2024 Orders Only External Location [address] [place] [address] Provider, External Social History Tobacco Use Types [...] drink first t alicja in the morning (EYE-CAMP HEAD COUNSELOR) to steady your nerves or to get [...] Urology [address], [address] [place] [address] Lisa Hurtado PA [address] [place] [address] 03/22/2025 11:10 AM EST Office Visit [place] [facility] [address], 2[address] [place] [address] iLsa Hurtado, THELMA [address] [place] [address] documented as of this encounter [...] documented as of this encounter Care Teams Health Science Instructor Relationship Specialty Start Date End Date Madiha Villarreal APRN [address] [place] [address] PCP - General 07/29/20 Idris Jones MD [address] [place] [address] First Call Provider Interventional Cardiology 04/16/22 documented as of this encounter
--- OUTSIDE RECORDS SUMMARY | 2024-10-21 14:46 | XMS_ITS | Clinical Summary ---
Author Organization [facility] Address [address] [place] [address] Care Team Providers Care Pastry Finisher Name Role Phone Phil Madiha Fernández APRN Primary Care Provider [phone]- [phone] Idris Jones MD Unavailable [phone] Allergies Active Allergy Reactions Criticality Noted [...] Patient not taking.Reported on 06/15/[address] Away Driver (Dexcom G7 Drive Away Driver) device USE DIRECTED TO TEST BLOOD GLUCOSE LEVEL 4 Active Continuous Glucose Sensor (Dexcom G7 Sensor) [facility] Active Active Problems Problem Noted Date [...] artery disease of n ative artery of [place] heart with stable angina pectoris 04/09/2022 Persistent atrial fibrillation 04/08/2022 Overview (04/13/2022): Added automatically from request for surgery [id number] Malignant neoplasm of overla pping sites of [...] Type Department Care Team Description 10/02/2024 Telephone [facility] [address], [address] [place] [address] Lakesha Woodruff 09/25/2024 Telephone [facility] [address], [address] [place] [phone] Lisa Hurtado PA Image/Report Request; 2nd Request to Reports; Rcvd Records 09/21/2024 Telephone [facility] [address], [address] [place] [address] Lisa Hurtado PA Appt Changes 08/15/2024 Orders Only External Location [address] [place] [address] Nickolas Hale MD 08/15/2024 Orders Only External Location [address] [place] [address] Provider, External 08/15/2024 Orders Only External Location [address] [place] [address] Provider, External 08/15/2024 Orders Only External Location [address] [place] [address] Provider, External 08/15/2024 Orders Only External Location [address] [place] [address] Provider, External 08/15/2024 Orders Only External Location [address] [place] [address] Provider, External 08/15/2024 Orders Only External Location [address] [place] [address] Provider, External 08/15/2024 Orders Only External Location [address] [place] [address] Provider, External 08/15/2024 Orders Only External Location [address] [place] [address] Provider, External from Last 3 [...] drink first t alicja in the morning (EYE-IN HOME CAREGIVER) to steady your nerves or to get [...] Visit Medical Office Building Urology [address] [facility], [address] [place] [address] Lisa Hurtado PA [address] [place] [address] 03/22/2025 11:10 AM EST Office Visit [place] [facility] [address], [address]nd [place] [address] Lisa Hurtado PA [address] [place] [address] Health Maintenance Due Date Last Done Comments [facility]-Bone Density Scan 1958 [facility]-Depression Screening 1958 [facility]-Diabetes: Hemoglobin A1C 1958 [facility]-Medicare Annual Wellness (AWV) 1958 [facility]-/Child/Adol SDOH Screenings 1960 [id number] Vaccine (#1) 12/12/1963 Diabetes: Dental Exam 1968 [...] ORDERABLES Final Result [facility] [address] [place] [address] from Last 3 Months or Most Recently Relevant to Health Maintenance Insurance [address] [place] [address] [facility] [address] [place]ICA[place] Advance Directives * Full Code (Latest Code Status on File) Date Activated Date Inactivated Comments 04/09/2022 5:08 AM 04/16/2022 5:29 PM Question Answer Comments Patient has decision-making capacity? Yes Care Teams Pastry Finisher Relationship Specialty Start Date End Date Madiha Villarreal APRN [address] [place] [address] PCP - General 07/29/20 Idris Jones MD [address] [place] [address] First Call Provider Interventional Cardiology 04/16/22
--- OUTSIDE RECORDS SUMMARY | 2024-10-21 14:46 | XMS_ITS | Encounter Summary ---
Author Organization Healthcare Address [address] [place] [address] Care Team Providers Care Design Studio Consultant Name Role Phone Phil Madiha Fernández APRN Primary Care Provider [phone]- [phone] Idris Jones MD Unavailable [phone] Encounter Details Date Type Department Care Team ([facility] st Contact Info) Description 08/15/2024 Orders Only External Location [address] [place] [address] Provider, External Social History Tobacco Use Types [...] drink first t alicja in the morning (EYE-PLATFORM SUPERVISOR) to steady your nerves or to [...] Urology [address], [address] [place] [address] Lisa Hurtado, PA [address] [place] [address] 03/22/2025 11:10 AM EST Office Visit [place] [facility] [address], [address] [place] [address] Lisa Hurtado, THELMA [address] [place] [address] documented as of this encounter [...] documented as of this encounter Care Teams Design Studio Consultant Relationship Specialty Start Date End Date Madiha Villarreal APRN [address] [place] [address] PCP - General 07/29/20 Idris Jones MD [address] [place] [address] First Call Provider Interventional Cardiology 04/16/22 documented as of this encounter
--- OUTSIDE RECORDS SUMMARY | 2024-10-21 14:46 | XMS_ITS | Encounter Summary ---
Author Organization Healthcare Address [address] [place] [address] Care Team Providers Care Global Sales Director Name Role Phone Deric alonzocordell Fernández APRN Primary Care Provider [phone]- [phone] Idris Jones MD Unavailable [phone] Encounter Details Date Type Department Care Team (Late st Contact Info) Description 08/15/2024 Orders Only External Location [address] [place] [address] Nickolas Hale MD [address] [address] Social History Tobacco Use Types [...] drink first t alicja in the morning (EYE-BORING MILL SET UP OPERATOR) to steady your nerves or to [...] Upcoming Encounters Date Type Department Care Team ([facility] st Contact Info) Description 11/11/2024 10:50 AM EDT Office Visit Medical Office Building Urology [address] [facility], [address] [place] [address] Lisa Hurtado PA [address] [place] [address] 03/22/2025 11:10 AM EST Office Visit [place] [facility] [address], [address] [place] [address] Lisa Hurtado, PA [address] [place] [address] documented as of this encounter [...] documented as of this encounter Care Teams Global Sales Director Relationship Specialty Start Date End Date Madiha Villarreal APRN [address] [place] [address] PCP - General 07/29/20 Idris Jones MD [address] [place] [address] First Call Provider Interventional Cardiology 04/16/22 documented as of this encounter
--- OUTSIDE RECORDS SUMMARY | 2024-10-21 14:46 | XMS_ITS | Encounter Summary ---
Author Organization Healthcare Address [address] [place] [address] Care Team Providers Care Steel Division Supervisor Name Role Phone Phil Madiha Fernández APRN Primary Care Provider [phone]- [phone] Idris Jones MD Unavailable [phone] Encounter Details Date Type Department Care Team ([facility] st Contact Info) Description 08/15/2024 Orders Only External Location [address] [place] [address] Provider, External Social History Tobacco Use Types [...] drink first t alicja in the morning (EYE-WOOD PREPARATION SUPERVISOR) to steady your nerves or to [...] Urology [address], [address] [place] [address] Lisa Hurtado PA [address] [place] [address] [place] [address] 03/22/2025 11:10 AM EST Office Visit [place] [facility] [address] [place], [address] [place] [address] Lisa Hurtado, THELMA [address] [place] [address] [place] [address] documented as of this encounter [...] documented as of this encounter Care Teams Steel Division Supervisor Relationship Specialty Start Date End Date Madiha Villarreal APRN [address] [place] [address] PCP - General 07/29/20 Idris Jones MD [address] [place] [address] First Call Provider Interventional Cardiology 04/16/22 documented as of this encounter
--- OUTSIDE RECORDS SUMMARY | 2024-10-21 14:46 | XMS_ITS | Encounter Summary ---
Author Organization Healthcare Address [address] [place] [address] Care Team Providers Care Restaurant Area Director Name Role Phone Phil Madiha Fernández APRN Primary Care Provider [phone] Idris Jones MD Unavailable [phone] Encounter Details Date Type Department Care Team ([facility] st Contact Info) Description 08/15/2024 Orders Only External Location [address] [place] [address] Provider, External Social History Tobacco Use Types [...] drink first t alicja in the morning (EYE-TRANSITION OF CARE SPECIALIST) to steady your nerves or to get [...] Urology [address] [place] [address] Lisa Hurtado PA [address] [place] [address] 03/22/2025 11:10 AM EST Office Visit [place] [facility] [address], [address] [place] [address] Lisa Hurtado, THELMA [address] [place] [address] documented as of this encounter [...] documented as of this encounter Care Teams Restaurant Area Director Relationship Specialty Start Date End Date Madiha Villarreal APRN [address] [place] [address] PCP - General 07/29/20 Idris Jones MD [address] [place] [address] First Call Provider Interventional Cardiology 04/16/22 documented as of this encounter
--- OUTSIDE RECORDS SUMMARY | 2024-10-21 14:46 | XMS_ITS | Encounter Summary ---
Author Organization Healthcare Address [address] [place] [address] Care Team Providers Care Sheet Metal Shop Foreman Name Role Phone Phil Madiha Fernández APRN Primary Care Provider [phone]- [phone] Idris Jones MD Unavailable [phone] Encounter Details Date Type Department Care Team ([facility] st Contact Info) Description 08/15/2024 Orders Only External Location [address] [place] [address] Provider, External Social History Tobacco Use Types [...] drink first t alicja in the morning (EYE-SUGAR CANE PLANTER) to steady your nerves or to get [...] Urology [address] [place] [address] Lisa Hurtado PA [address] [place] [address] 03/22/2025 11:10 AM EST Office Visit [place] [facility] [address], [address] [place] [address] Lisa Hurtado, THELMA [address] [place] [address] documented as of this encounter [...] documented as of this encounter Care Teams Sheet Metal Shop Foreman Relationship Specialty Start Date End Date Madiha Villarreal APRN [address] [place] [address] PCP - General 07/29/20 Idris Jones MD [address] [place] [address] First Call Provider Interventional Cardiology 04/16/22 documented as of this encounter
--- OUTSIDE RECORDS SUMMARY | 2024-10-21 14:46 | XMS_ITS | Encounter Summary ---
Author Organization Healthcare Address [address] [place] [address] Care Team Providers Care Cross Tie Cutter Name Role Phone Phil Madiha Fernández APRN Primary Care Provider [phone] Idris Jones MD Unavailable [phone] Encounter Details Date Type Department Care Team ([facility] st Contact Info) Description 08/15/2024 Orders Only External Location [address] [place] [id number] Provider, External Social History Tobacco Use Types [...] drink first t alicja in the morning (EYE-SHUTTLE CAR OPERATOR) to steady your nerves or to [...] Urology [address], [address] [place] [address] Lisa Hurtado PA [address] [place] [address] 03/22/2025 11:10 AM EST Office Visit [facility] [address], [address] [place] [address] Lisa Hurtado, THELMA [address] [place] [address] documented as of this encounter [...] documented as of this encounter Care Teams Cross Tie Cutter Relationship Specialty Start Date End Date Madiha Villarreal APRN [address] [place] [address] PCP - General 07/29/20 Idris Jones MD [address] [place] [address] First Call Provider Interventional Cardiology 04/16/22 documented as of this encounter
--- OUTSIDE RECORDS SUMMARY | 2024-10-21 14:46 | XMS_ITS | Encounter Summary ---
Author Organization Healthcare Address [address] [place] [address] Care Team Providers Care Chronic Specialist Name Role Phone Madiha Villarreal Jolene MILNER Primary Care Provider [phone] Idris Jones MD Unavailable [phone] Encounter Details Date Type Department Care Team (Late st Contact Info) Description 08/06/2011 Abstract [facility] [id number] [place] [address] Yumi Mccabe, RN [facility] Social [...] Visit Medical Office Building Urology [address] [facility] [address], [address] [place] [address] Lisa Hurtado PA [address] [place] [address] 03/22/2025 11:10 AM EST Office [facility] [address] [place] [address] Lisa Hurtado PA [address] [place] [address] documented as of this encounter Visit Diagnoses Not on filedocumented in this encounter Care Teams Chronic Specialist Relationship Specialty Start Date End Date Madiha Villarreal APRN [address] [place] [address] PCP - General 07/29/20 Idris Jones MD [address] [place] [address] First Call Provider Interventional Cardiology 04/16/22 documented as of this encounter
--- OUTSIDE RECORDS SUMMARY | 2024-10-21 14:46 | XMS_ITS | Encounter Summary ---
Author Organization Healthcare Address [address] [place] [address] Care Team Providers Care Remediation Bioanalytics Consultant Name Role Phone Rudybal Madiha Fernández APRN Primary Care Provider [phone] Idris Jones MD Unavailable [phone] Encounter Details Date Type Department Care Team ([facility] Contact Info) Description 01/05/2019 Orders Only External Location [address] [place] [id number] Provider, External Social History Tobacco Use Types [...] Visit Medical Office Building Urology [address] [facility], [address] [place] [address] Lisa Hurtado PA [address] [facility] [address] [place] [address] 03/22/2025 11:10 AM EST Office Visit [facility] [address] [place] [address] Lisa Hurtado PA [id number] [place] [address] documented as of this encounter [...] on filedocumented in this encounter Care Teams Remediation Bioanalytics Consultant Relationship Specialty Start Date End Date Madiha Villarreal APRN [address] [place] [address] PCP - General 07/29/20 Idris Jones MD [address] [place] [id number] First Call Provider Interventional Cardiology 04/16/22 documented as of this encounter
--- OUTSIDE RECORDS SUMMARY | 2024-10-21 14:46 | XMS_ITS | Encounter Summary ---
Author Organization Healthcare Address [address] [place] [address] Care Team Providers Care Lawn Service Manager Name Role Phone Phil Madiha Fernández APRN Primary Care Provider [phone] Idris Jones MD Unavailable [phone] Encounter Details Date Type Department Care Team ([facility] st Contact Info) Description 02/10/2024 Orders Only External Location [address] [place] [id number] Provider, External Social History Tobacco Use Types [...] drink first t alicja in the morning (EYE-LACQUER DIPPING MACHINE OPERATOR) to steady your nerves or to [...] Visit Medical Office Building Urology [address] [facility], [address] [place] [address] Lisa Hurtado PA [address] [place] [address] 03/22/2025 11:10 AM EST Office Visit [facility] [address] [place] [address] Lisa Hurtado, THELMA [address] [place] [address] documented as of this encounter [...] documented as of this encounter Care Teams Lawn Service Manager Relationship Specialty Start Date End Date Madiha Villarreal APRN [address] [place] [id number] PCP - General 07/29/20 Idris Jones MD [address] [place] [address] First Call Provider Interventional Cardiology 04/16/22 documented as of this encounter
--- NOTE | 2024-10-21 14:48 | ED_ITS ---
<Statement entered by Michelle Sanchez DO - 10/21/24 20:04> I was consulted by the CASI, and we discussed the complexity of the problems being addressed. I approved the treatment and management plan for this patient's care in the emergency department, thus performing a substantive portion of the medical decision making. Michelle Sanchez DO <Statement entered by Álvaro Dominguez MD - 10/21/24 16:19> I consulted the CASI, and we discussed the complexity of the problems being addressed. I approved the treatment and management plan for this patient's care in the emergency department, thus performing a substantial portion of the medical decision making. Ashish Dominguez MD Discharge Plan Disposition Chief Complaint: Shortness of Breath/Dyspnea Prescriptions Prescriptions: No Action clonazepam 0.5 mg tablet 0.5 mg PO DAILY PRN (Reason: Agitation) Qty: 30 2RF (DME) Dexcom G7 Detail Supervisor Misc See Rx Instructions .Route Qty: 1 3RF Rx Instructions: As directed metoprolol tartrate 100 mg tablet 300 mg PO BID 90 Days Qty: 540 3RF (DME) Omnipod 5 G6-G7 Intro Kt(Gen5) Cartridge See Rx Instructions .Route Qty: 1 0RF Rx Instructions: As directed insulin lispro 100 unit/mL cartridge 1 sliding scale dose SQ USEASDIRECTD Qty: 15 3RF Rx Instructions: Max 80 units daily pantoprazole 40 mg tablet,delayed release (DR/EC) See Rx Instructions .ROUTE .COMPLEX Qty: 90 2RF Dose Instruction: TAKE ONE TABLET BY MOUTH EVERY DAY FOR acid reflux Rx Instructions: TAKE ONE TABLET BY MOUTH EVERY DAY FOR acid reflux bumetanide 1 mg tablet 1 mg PO BID Qty: 180 2RF atorvastatin 80 mg tablet See Rx Instructions .ROUTE .COMPLEX Qty: 90 3RF Dose Instruction: TAKE ONE TABLET BY MOUTH EVERY DAY Rx Instructions: TAKE ONE TABLET BY MOUTH EVERY DAY clopidogrel 75 mg tablet See Rx Instructions .ROUTE .COMPLEX Qty: 90 4RF Dose Instruction: TAKE ONE TABLET BY MOUTH EVERY DAY Rx Instructions: TAKE ONE TABLET BY MOUTH EVERY DAY (DME) Dexcom G7 Sensor Device See Rx Instructions .ROUTE .COMPLEX Qty: 3 3RF Dose Instruction: USE DIRECTED TO TEST BLOOD GLUCOSE LEVEL CHANGE SENSOR EVERY 10 DAYS Rx Instructions: USE DIRECTED TO TEST BLOOD GLUCOSE LEVEL CHANGE SENSOR EVERY 10 DAYS (DME) lancets [FreeStyle Lancets] 28 gauge misc See Rx Instructions .Route Qty: 100 1RF Rx Instructions: Three times daily or As directed (DME) blood-glucose meter [Accu-Chek Guide Glucose Meter] Misc See Rx Instructions .Route Qty: 1 0RF Rx Instructions: Test sugar three times daily or As directed spironolactone 25 mg tablet See Rx Instructions .ROUTE .COMPLEX Qty: 90 1RF Dose Instruction: TAKE ONE TABLET BY MOUTH EVERY DAY Rx Instructions: TAKE ONE TABLET BY MOUTH EVERY DAY valsartan 40 mg tablet See Rx Instructions .ROUTE .COMPLEX Qty: 90 1RF Dose Instruction: TAKE ONE TABLET BY MOUTH EVERY DAY Rx Instructions: TAKE ONE TABLET BY MOUTH EVERY DAY dapagliflozin propanediol [Farxiga] 10 mg tablet See Rx Instructions .ROUTE .COMPLEX Qty: 90 1RF Dose Instruction: TAKE ONE TABLET BY MOUTH EVERY DAY Rx Instructions: TAKE ONE TABLET BY MOUTH EVERY DAY cyclobenzaprine 10 mg tablet See Rx Instructions .ROUTE .COMPLEX Qty: 60 1RF Dose Instruction: TAKE ONE TABLET BY MOUTH EVERY 8 HOURS MAY CAUSE DROWSINESS Rx Instructions: TAKE ONE TABLET BY MOUTH EVERY 8 HOURS MAY CAUSE DROWSINESS insulin lispro 100 unit/mL solution See Rx Instructions .ROUTE .COMPLEX Qty: 10 3RF Dose Instruction: Sliding scale DOSE via continuous subcutaneous infusion. (MAX DAILY DOSE OF 80 UNITS. Rx Instructions: Sliding scale DOSE via continuous subcutaneous infusion. (MAX DAILY DOSE OF 80 UNITS. (DME) pen needle, diabetic 32 gauge x 5/32 needle See Rx Instructions .ROUTE .COMPLEX Qty: 100 4RF Dose Instruction: USE THREE TIMES DAILY OR DIRECTED with insulin injections Rx Instructions: USE THREE TIMES DAILY OR DIRECTED with insulin injections (DME) Omnipod 5 G6-G7 Pods (Gen 5) Cartridge See Rx Instructions .ROUTE .COMPLEX Qty: 5 3RF Dose Instruction: USE DIRECTED Rx Instructions: USE DIRECTED (DME) lancets [Accu-Chek Softclix Lancets] Misc See Rx Instructions .ROUTE .COMPLEX Qty: 200 6RF Dose Instruction: USE DIRECTED THREE TIMES DAILY OR DIRECTED Rx Instructions: USE DIRECTED THREE TIMES DAILY OR DIRECTED doxycycline hyclate 100 mg capsule 100 mg PO BID 5 Days Qty: 10 0RF prednisone 20 mg tablet 40 mg PO DAILY 5 Days Qty: 10 0RF prednisone 20 mg tablet 40 mg PO DAILY 4 Days Qty: 8 0RF Rx Instructions: Start tomorrow 10/16/24 doxycycline hyclate 100 mg tablet 100 mg PO BID 7 Days Qty: 14 0RF Rx Instructions: Take first dose tomorrow morning 10/16/24 albuterol sulfate [Ventolin HFA] 90 mcg/actuation HFA aerosol inhaler 2 puff INHALATION Q6HP PRN (Reason: SOA) Patient Comments: INHALE TWO PUFFS BY MOUTH EVERY 6 HOURS NEEDED FOR SHORTNESS OF BREATH fluticasone propion-salmeterol [Advair HFA] 45-21 mcg/actuation HFA aerosol inhaler 2 inh INHALATION BID Patient Comments: INHALE TWO PUFFS BY MOUTH TWICE DAILY --RINSE MOUTH AFTER USE-- Xarelto 15 mg tablet 15 mg PO DAILY Patient Comments: TAKE ONE TABLET BY MOUTH EVERY DAY benzonatate 100 mg capsule 100 mg PO TIDP PRN (Reason: Cough) Qty: 30 0RF Referrals Follow up/Referrals: Provider,Referral, MD [Primary Care Provider, Medical] - See instructions Print Language Print Language: Polish Discharge ED Provider: Michelle Sanchez HPI <Nydia Glasgow (ED), [employer] - Last Filed: 10/21/24 19:37> General Chief Complaint: Shortness of Breath/Dyspnea Stated Complaint: chest pain Time Seen by Provider: 10/21/24 14:37 Mode of Arrival: Wheelchair Source of Information: Patient Description of Symptoms (Recalled from ER Triage Doc. by RN): Pt presents for evaluation of worsening SOB and intermittent left sided chest pain. Pt reports she was diagnosed with bronchitis on saturday and was prescribed abx. Pt states she has been having to use her oxygen at home at 2L History of Present Illness HPI narrative: 63-year-old female presents to the ED today for worsening shortness of breath for the past 2 days. Patient was diagnosed on Saturday with bronchitis at her PCPs office. She was given doxycycline and prednisone. She has been doing breathing treatments every 4 hours and they have been no help. She has been increasing the use of her oxygen at home. She says she has been having weakness, fevers, cold chills, nausea no vomiting for 2 days. Patient has not been able to walk across the floor . She says she is just been too weak. She says she was unable to get into her primary care office today so she came to the emergency room. She has been taking her antibiotics and steroids but just feels unwell. She has history of COPD, CHF, diabetes, CKD, she is a smoker, chronic A-fib, cardiomyopathy, PAD and hypertension. Patient is on Plavix and Xarelto. Related Data Home Medications ?Medication ?Instructions ?Recorded ?Confirmed albuterol sulfate 90 mcg/actuation 2 puff inhalation Q 6HP PRN SOA 12/17/23 07/14/24 aerosol inhaler (Ventolin HFA) fluticasone propionate 45 2 inh inhalation BID 4 07/14/24 mcg-salmeterol 21 mcg/actuation HFA inhaler (Advair HFA) rivaroxaban 15 mg tablet (Xarelto) 15 mg PO DAILY 04/1007/14/24 Previous Rx's ?Medication ?Instructions ?Recorded blood-glucose,aligner barrel and receiver,cont #1 ea 06/19/23 (Dexcom G7 Detail Supervisor) benzonatate 100 mg capsule 100 mg PO TIDP PRN Cough #3 0 caps 12/17/23 metoprolol tartrate 100 mg tablet 300 mg (3 x 100 mg) PO BID 90 days 02/19/24 #540 tabs pantoprazole 40 mg tablet,delayed See Rx Instructions .Route 02/19/24 release .COMPLEX #90 tabs insulin lispro 100 unit/mL 1 sliding scale dose SQ subcutaneous cartridge USEASDIRECTD #15 mL insulin pump cartridge,auto #1 ea 05/13/24 dose,BT,G6/G7 with controller subcutaneous (Omnipod 5 G6-G7 Intro Kit(Gen 5) subcutaneous cartridge and controller) bumetanide 1 mg tablet 1 mg PO BID #180 tabs atorvastatin 80 mg tablet See Rx Instructions .Route 0 05/26/24 .COMPLEX #90 tabs clopidogrel 75 mg tablet See Rx Instructions .Route 0 05/26/24 .COMPLEX #90 tabs blood-glucose sensor (Dexcom G7 #3 ea 06/29/24 Sensor device) blood-glucose meter (Accu-Chek #1 ea 07/08/24 Guide Glucose Meter) lancets 28 gauge (FreeStyle #100 ea 07/08/24 Lancets) clonazepam 0.5 mg tablet 0.5 mg PO DAILY PRN Agitatio n #30 07/14/24 tabs dapagliflozin propanediol 10 mg See Rx Instructions .R oute 07/20/24 tablet (Farxiga) .COMPLEX #90 tabs doxycycline hyclate 100 mg capsule 100 mg PO BID 5 day s #10 caps 07/20/24 prednisone 20 mg tablet 40 mg (2 x 20 mg) PO DAILY 5 days 07/20/24 #10 tabs spironolactone 25 mg tablet See Rx Instructions .Route 07/20/24 .COMPLEX #90 tabs valsartan 40 mg tablet See Rx Instructions .Route 0 07/20/24 .COMPLEX #90 tabs cyclobenzaprine 10 mg tablet See Rx Instructions .Rout e 07/22/24 .COMPLEX #60 tabs insulin lispro 100 unit/mL See Rx Instructions .Route 08/23/24 subcutaneous solution .COMPLEX #10 mL pen needle, diabetic 32 gauge x #100 ea 08/26/24 insulin pump cart,auto,BT,G6/7 #5 ea 08/28/24 (Omnipod 5 G6-G7 Pods (Gen 5) subcutaneous cartridge) lancets (Accu-Chek Softclix #200 ea 10/07/24 Lancets) doxycycline hyclate 100 mg tablet 100 mg PO BID 7 days #14 tabs 10/15/24 prednisone 20 mg tablet 40 mg (2 x 20 mg) PO DAILY 4 days 10/15/24 #8 tabs Allergies Allergy/AdvReac Type Severity Reaction Status Date / Time oxycodone (From PERCOCET) Allergy Unknown Unknown Verified 07/14/24 15:36 allergy reaction isosorbide (From Imdur) AdvReac Severe Headache Verified 07/14/24 15:36 PFSH <Nydia Glasgow (ED), [employer] - Last Filed: 10/21/24 19:37> PFS Disclaimer: The information contained in this section may have been updated after the patient was seen, as this information can be updated by other users. Medical History Sinusitis Cough Pleural effusion Encounter for screening for malignant neoplasm of lung Lung nodule Smoking greater than 30 pack years COPD mixed type Dyspnea on exertion Chronic a-fib History of COVID-19 Sleep apnea Migraine History of gastroesophageal reflux (GERD) Diabetes mellitus, type 2 History of left heart catheterization (LHC) Breast cancer Cardiac murmur Atypical angina Abnormal stress test Neuropathic pain Cardiomyopathy Left carotid bruit Tobacco dependence syndrome ADRIANA (obstructive sleep apnea) Diastolic dysfunction Ex-smoker Abnormal EKG HTN (hypertension) Tachycardia induced cardiomyopathy Fatigue IDDM (insulin dependent diabetes mellitus) Neuropathy Congestive heart failure Diabetes mellitus Surgical History History of right heart catheterization (RHC) Tubal ligation status History of tonsillectomy Family History Other Family history of COPD (chronic obstructive pulmonary disease) Family history of GERD Family history of cancer Family history of diabetes mellitus type II Family history of hyperlipidemia Family history of hypertension Family history of migraine headaches Family history of myocardial infarction Family history of stroke Social History Smoking Status: Never smoker second hand exposure: No alcohol intake: never counseling provided: none substance use type: marijuana current occupational status: retired, disabled and other Travel in the last 8 weeks?: None household members: family and children housing: house current occupational exposures/hazards: No caffeine: No Have you lived/traveled outside [place] in past 30 days?: No Contact w/someone who lives/traveled outside US past 30 days?: No Exposure to someone with infectious disease in past 14 days?: No Do you have a fever (greater than 100.4 F or 38 C)?: No Have you tested positive for COVID-19?: No Exposed to someone with COVID-19 in past 14 days?: No Do you have a sore throat?: No Do you have a cough?: No Do you have any weakness?: No Do you have any diarrhea?: No Are you experiencing any unusual bleeding?: No Do you have any muscle aches/pain?: No Do you have any abdominal pain?: No Are you experiencing loss of taste or smell?: No Other Medical History Have you received the Flu Vaccine for this season: No Have you received the Pneumonia Vaccine: Yes <Nydia LAMBERT), [employer] - Last Filed: 10/21/24 19:37> ROS Obtained: Yes Systems reviewed as appropriate & no additional complaints except as documented Constitutional Constitutional: Reports as per HPI Physical Exam <Nydia Glasgow (ED), [employer] - Last Filed: 10/21/24 19:37> General General appearance: alert and in distress Head Head exam: normocephalic Eye Eye exam: Present PERRL ENT ENT exam: Present mucous membranes moist Neck Neck exam: Present trachea midline Chest Chest inspection: Present symmetric chest wall rise Respiratory Respiratory exam: Present wheezes and other (Rhonchi throughout) Cardiovascular Cardiovascular exam: Present regular rate, normal rhythm, normal heart sounds, +S1 and +S2 Abdominal Exam Abdominal exam: Present soft and normal bowel sounds Extremities Exam Extremities exam: Present normal inspection, full ROM and normal capillary refill Back Exam Back exam: Present full ROM Neurological Exam Neurological exam: Present alert and oriented X3 Psychiatric Psychiatric exam: Present normal affect and normal mood Skin Skin exam: Present warm and dry HEART Score <Nydia Glasgow (ED), [employer] - Last Filed: 10/21/24 19:37> HEART Score HEART Score assessment performed?: Yes History (anamnesis): Moderately suspicious ECG: Non-specific disturbance Age: 45-65 years Risk factors: 3 or more risk factors Troponin: 1-3x normal limit HEART Score: 6 <Michelle Sanchez DO - Last Filed: 10/21/24 15:46> HEART Score HEART Score: 6 <Álvaro Dominguez MD - Last Filed: 10/21/24 16:28> HEART Score HEART Score: 6 Critical Care <Álvaro Dominguez MD - Last Filed: 10/21/24 16:28> Critical Care Time Critical Care Time: No Medical Decision Making <yNdia Glasgow (ED), [employer] - Last Filed: 10/21/24 19:37> Gianfranco Inquiry Pt receiving controlled substance: No Gianfranco was queried for this patient: No Vital Signs Vital Signs: 10/21/24 14:41 10/21/24 15:00 10/21/24 15:30 Temperature 98.3 F Temperature Source Oral Pulse Rate 89 82 Pulse Rate [Right] 97 H Respiratory Rate 18 14 20 Blood Pressure 124/100 H 152/86 H Blood Pressure [Right Arm] 111/65 Blood Pressure Mean [Right Arm] 80 02 Sat by Pulse Oximetry 94 L 95 100 Oxygen Delivery Method Nasal Cannula Oxygen Flow Rate (LPM) 2 10/21/24 16:00 10/21/24 16:31 10/21/24 18:01 Temperature Temperature Source Pulse Rate 75 84 85 Pulse Rate [Right] Respiratory Rate Blood Pressure 142/79 H 180/101 H 144/94 H Blood Pressure [Right Arm] Blood Pressure Mean [Right Arm] 02 Sat by Pulse Oximetry 94 L 95 95 Oxygen Delivery Method Oxygen Flow Rate (LPM) 10/21/24 18:31 Temperature Temperature Source Pulse Rate 108 H Pulse Rate [Right] Respiratory Rate Blood Pressure 121/98 H Blood Pressure [Right Arm] Blood Pressure Mean [Right Arm] 02 Sat by Pulse Oximetry 96 Oxygen Delivery Method Oxygen Flow Rate (LPM) Lab Data Labs: Lab Results 10/21/24 14:40: WBC 13.9 H, RBC 5.55 H, Hgb 16.5 H, Hct 50.8 H, MCV 91.5, MCH 29.7, MCHC 32.5, RDW 14.9, Plt Count 284, MPV 9.9, Neut % (Auto) 61.6, Lymph % (Auto) 28.3, [place] % (Auto) 7.1, Eos % (Auto) 1.4, Baso % (Auto) 0.4, Neut # (Auto) 8.5 H, Lymph # (Auto) 3.9, [place] # (Auto) 1.0, Eos # (Auto) 0.2, Baso # (Auto) 0.1, ESR 7, Sodium 135 L, Potassium 3.8, Chloride 102, Carbon Dioxide 24, Anion Gap 12.8, BUN 47 H, Creatinine 1.50 H, Estimated Creat Clear 56, Estimated GFR 35 L, Est GFR ( Amer) 42 L, Glucose 333 H, Calcium 9.5, Magnesium 2.0, Total Bilirubin 0.9, AST 28, ALT 32, Alkaline Phosphatase 126, Troponin I < 0.01, C-Reactive Protein 7.2 H, NT-Pro-B Natriuret Pep 5910 H, Total Protein 6.7, Albumin 4.2, Globulin 2.5, Albumin/Globulin Ratio 1.7, Lipase 99 10/21/24 14:45: VBG pH 7.26 L, VBG pCO2 58.3 H, VBG pO2 45.2 H, VBG HCO3 25.6, V BG Total CO2 27.4 H, VBG O2 Saturation 74.7 H, VBG Base Excess -1.4, VBG Lactic Acid 2.1 H 10/21/24 14:56: Lactate 1.9 10/21/24 18:00: Troponin I < 0.01 10/21/24 18:15: Urine Color Yellow, Urine Appearance Clear, Urine pH 6.0, Ur Specific [place] <= 1.005, Urine Protein Negative, Urine Glucose (UA) 3+, Urine Ketones Negative, Urine Blood Negative, Urine Nitrate Negative, Urine Bilirubin Negative, Urine Urobilinogen 0.2, Ur Leukocyte Esterase Negative, Urine RBC None, Urine WBC Occasional, Ur Squamous Epith Cells Occasional, Urine Bacteria None 10/21/24 14:40 10/21/24 14:40 Response Orders (Tests/Meds): ED MEDICATIONS Discontinued Medications Generic Name Dose Route Start Last Admin Trade Name Freq PRN Reason Stop Dose Admin Albuterol/Ipratropium 9 ml 10/21/24 14:44 10/21/24 15:12 Ipratropium/Albuterol 3 Ml Neb IH 10/21/24 14:45 9 ml ONCE ONE Administration Furosemide 40 mg 10/21/24 17:22 10/21/24 17:59 Furosemide 40mg/4ml Vial IV 10/21/24 17:23 40 mg ONCE ONE Administration Magnesium Sulfate 2 gm in 50 mls @ 50 mls/hr 10/21/24 14:44 10/21/24 15:11 Magnesium Sulfate 2gm/50ml Premix IV 10/21/24 15:43 50 mls/hr ONCE ONE Administration Ceftriaxone Sodium 2 gm/ 100 mls @ 200 mls/hr 10/21/24 14:46 10/21/24 15:12 Sodium Chloride IV 10/21/24 15:15 200 mls/hr ONCE ONE Administration Azithromycin 500 mg/ Sodium 250 mls @ 250 mls/hr 10/21/24 14:46 10/21/24 15:12 Chloride IV 10/21/24 14:47 250 mls/hr ONCE ONE Administration Iopamidol 90 ml 10/21/24 17:29 10/21/24 17:32 Iopamidol-370 (76%);100ml Bottle IV 10/21/24 17:30 90 ml ONCE ONE Administration Methylprednisolone Sodium Succinate 125 mg 10/21/24 14:44 10/21/24 15:11 Methylprednisolone Sod Succ 125mg Vial IV 10/21/24 14:45 125 mg ONCE ONE Administration Sodium Chloride 50 ml 10/21/24 17:29 10/21/24 17:33 0.9 % Sodium Chloride 50 Ml Vial IV 10/21/24 17:30 50 ml ONCE ONE Administration Sodium Chloride 10 ml 10/21/24 17:29 10/21/24 17:33 Sodium Chloride 0.9% 10ml Syr (Rad Only) IV 10/21/24 17:30 10 ml ONCE ONE Administration ORDERS Category Date Time Status CTA Chest [CT angio chest PE protocol] Stat Cat Scan 10/21/24 14:45 Completed BNP [NT Pro Brain Natriuretic Pep.] Stat Lab 10/21/24 14:40 Completed C-Reactive Protein Stat Lab 10/21/24 14:40 Completed CBC [Complete Blood Count Auto Diff] Stat Lab 10/21/24 14:40 Completed Comprehensive Metabolic Panel Stat Lab 10/21/24 14:40 Completed Erythrocyte Sedimentation Rate Stat Lab 10/21/24 14:40 Completed Full Resp Panel w/COVID ([facility]) Routine Lab 10/21/24 19:34 Ordered Lactic Acid Stat Lab 10/21/24 14:56 Completed Lipase Stat Lab 10/21/24 14:40 Completed Magnesium Stat Lab 10/21/24 14:40 Completed Trop I [Troponin I] Stat Lab 10/21/24 14:40 Completed Troponin I Q3H Lab 10/21/24 18:00 Completed Troponin I Q3H Lab 10/21/24 20:45 Ordered Urinalysis and Microscopic Stat Lab 10/21/24 18:15 Completed Blood Culture Stat Micro 10/21/24 15:02 Received Venous Blood Gas Stat RT 10/21/24 14:45 Completed MDM Narrative Medical Decision Narrative: patient is a 63-year-old female presenting to the emergency department for evaluation of shortness of breath, increased oxygen dependent, weakness. Patient is hemodynamically stable and nontoxic-appearing upon arrival, afebrile. Differential diagnosis includes COPD exacerbation, pneumonia, respiratory failure, among others. Workup will be conducted with hematologic labs, specific imaging. Initial inventions include no sepsis bolus as patient has CHF and cardiomyopathy, diastolic dysfunction and at this time I do not want to overload patient., Will also give steroids to help with wheezing along with neb treatments, magnesium to help with breathing and relax smooth muscle. Initial workup reviewed by me hematologic labs are remarkable for elevated white count at 13.9. Troponin is normal. BNP was 5910. I discussed with Dr. Sanchez giving IV Lasix. Ordered 40 mg IV Lasix. Patient does take Bumex at home. Formal imaging read remarkable for secretions filling the airways more in the left lower lobe suspicious for aspiration pneumonitis versus atypical infection. Patient has been treated here in the ED with antibiotics including azithromycin and Rocephin as well as Lasix IV. Patient does feel somewhat better but still very weak and hypoxic when she walks. She has to be put in the wheelchair to go to the restroom due to hypoxia. I called hospitalist to admit patient. Patient is requiring constant oxygen due to her increased weakness and need for O2. Talk to Dr. Hopkins and he excepted admission to hospital <Michelle Sanchez, - Last Filed: 10/21/24 15:46> Vital Signs Vital Signs: 10/21/24 14:41 10/21/24 15:00 10/21/24 15:30 Temperature 98.3 F Temperature Source Oral Pulse Rate 89 82 Pulse Rate [Right] 97 H Respiratory Rate 18 14 20 Blood Pressure 124/100 H 152/86 H Blood Pressure [Right Arm] 111/65 Blood Pressure Mean [Right Arm] 80 02 Sat by Pulse Oximetry 94 L 95 100 Oxygen Delivery Method Nasal Cannula Oxygen Flow Rate (LPM) 2 10/21/24 16:00 10/21/24 16:31 10/21/24 18:01 Temperature Temperature Source Pulse Rate 75 84 85 Pulse Rate [Right] Respiratory Rate Blood Pressure 142/79 H 180/101 H 144/94 H Blood Pressure [Right Arm] Blood Pressure Mean [Right Arm] 02 Sat by Pulse Oximetry 94 L 95 95 Oxygen Delivery Method Oxygen Flow Rate (LPM) 10/21/24 18:31 Temperature Temperature Source Pulse Rate 108 H Pulse Rate [Right] Respiratory Rate Blood Pressure 121/98 H Blood Pressure [Right Arm] Blood Pressure Mean [Right Arm] 02 Sat by Pulse Oximetry 96 Oxygen Delivery Method Oxygen Flow Rate (LPM) Lab Data Labs: Lab Results 10/21/24 14:40: WBC 13.9 H, RBC 5.55 H, Hgb 16.5 H, Hct 50.8 H, MCV 91.5, MCH 29.7, MCHC 32.5, RDW 14.9, Plt Count 284, MPV 9.9, Neut % (Auto) 61.6, Lymph % (Auto) 28.3, [place] % (Auto) 7.1, Eos % (Auto) 1.4, Baso % (Auto) 0.4, Neut # (Auto) 8.5 H, Lymph # (Auto) 3.9, [place] # (Auto) 1.0, Eos # (Auto) 0.2, Baso # (Auto) 0.1, ESR 7, Sodium 135 L, Potassium 3.8, Chloride 102, Carbon Dioxide 24, Anion Gap 12.8, BUN 47 H, Creatinine 1.50 H, Estimated Creat Clear 56, Estimated GFR 35 L, Est GFR ( Amer) 42 L, Glucose 333 H, Calcium 9.5, Magnesium 2.0, Total Bilirubin 0.9, AST 28, ALT 32, Alkaline Phosphatase 126, Troponin I < 0.01, C-Reactive Protein 7.2 H, NT-Pro-B Natriuret Pep 5910 H, Total Protein 6.7, Albumin 4.2, Globulin 2.5, Albumin/Globulin Ratio 1.7, Lipase 99 10/21/24 14:45: VBG pH 7.26 L, VBG pCO2 58.3 H, VBG pO2 45.2 H, VBG HCO3 25.6, V BG Total CO2 27.4 H, VBG O2 Saturation 74.7 H, VBG Base Excess -1.4, VBG Lactic Acid 2.1 H 10/21/24 14:56: Lactate 1.9 10/21/24 18:00: Troponin I < 0.01 10/21/24 18:15: Urine Color Yellow, Urine Appearance Clear, Urine pH 6.0, Ur Specific [place] <= 1.005, Urine Protein Negative, Urine Glucose (UA) 3+, Urine Ketones Negative, Urine Blood Negative, Urine Nitrate Negative, Urine Bilirubin Negative, Urine Urobilinogen 0.2, Ur Leukocyte Esterase Negative, Urine RBC None, Urine WBC Occasional, Ur Squamous Epith Cells Occasional, Urine Bacteria None Response Orders (Tests/Meds): ED MEDICATIONS Discontinued Medications Generic Name Dose Route Start Last Admin Trade Name Freq PRN Reason Stop Dose Admin Albuterol/Ipratropium 9 ml 10/21/24 14:44 10/21/24 15:12 Ipratropium/Albuterol 3 Ml Neb IH 10/21/24 14:45 9 ml ONCE ONE Administration Furosemide 40 mg 10/21/24 17:22 10/21/24 17:59 Furosemide 40mg/4ml Vial IV 10/21/24 17:23 40 mg ONCE ONE Administration Magnesium Sulfate 2 gm in 50 mls @ 50 mls/hr 10/21/24 14:44 10/21/24 15:11 Magnesium Sulfate 2gm/50ml Premix IV 10/21/24 15:43 50 mls/hr ONCE ONE Administration Ceftriaxone Sodium 2 gm/ 100 mls @ 200 mls/hr 10/21/24 14:46 10/21/24 15:12 Sodium Chloride IV 10/21/24 15:15 200 mls/hr ONCE ONE Administration Azithromycin 500 mg/ Sodium 250 mls @ 250 mls/hr 10/21/24 14:46 10/21/24 15:12 Chloride IV 10/21/24 14:47 250 mls/hr ONCE ONE Administration Iopamidol 90 ml 10/21/24 17:29 10/21/24 17:32 Iopamidol-370 (76%);100ml Bottle IV 10/21/24 17:30 90 ml ONCE ONE Administration Methylprednisolone Sodium Succinate 125 mg 10/21/24 14:44 10/21/24 15:11 Methylprednisolone Sod Succ 125mg Vial IV 10/21/24 14:45 125 mg ONCE ONE Administration Sodium Chloride 50 ml 10/21/24 17:29 10/21/24 17:33 0.9 % Sodium Chloride 50 Ml Vial IV 10/21/24 17:30 50 ml ONCE ONE Administration Sodium Chloride 10 ml 10/21/24 17:29 10/21/24 17:33 Sodium Chloride 0.9% 10ml Syr (Rad Only) IV 10/21/24 17:30 10 ml ONCE ONE Administration ORDERS Category Date Time Status CTA Chest [CT angio chest PE protocol] Stat Cat Scan 10/21/24 14:45 Completed BNP [NT Pro Brain Natriuretic Pep.] Stat Lab 10/21/24 14:40 Completed C-Reactive Protein Stat Lab 10/21/24 14:40 Completed CBC [Complete Blood Count Auto Diff] Stat Lab 10/21/24 14:40 Completed Comprehensive Metabolic Panel Stat Lab 10/21/24 14:40 Completed Erythrocyte Sedimentation Rate Stat Lab 10/21/24 14:40 Completed Full Resp Panel w/COVID (H) Routine Lab 10/21/24 19:34 Ordered Lactic Acid Stat Lab 10/21/24 14:56 Completed Lipase Stat Lab 10/21/24 14:40 Completed Magnesium Stat Lab 10/21/24 14:40 Completed Trop I [Troponin I] Stat Lab 10/21/24 14:40 Completed Troponin I Q3H Lab 10/21/24 18:00 Completed Troponin I Q3H Lab 10/21/24 20:45 Ordered Urinalysis and Microscopic Stat Lab 10/21/24 18:15 Completed Blood Culture Stat Micro 10/21/24 15:02 Received Venous Blood Gas Stat RT 10/21/24 14:45 Completed <Álvaro Dominguez MD - Last Filed: 10/21/24 16:28> Vital Signs Vital Signs: 10/21/24 14:41 10/21/24 15:00 10/21/24 15:30 Temperature 98.3 F Temperature Source Oral Pulse Rate 89 82 Pulse Rate [Right] 97 H Respiratory Rate 18 14 20 Blood Pressure 124/100 H 152/86 H Blood Pressure [Right Arm] 111/65 Blood Pressure Mean [Right Arm] 80 02 Sat by Pulse Oximetry 94 L 95 100 Oxygen Delivery Method Nasal Cannula Oxygen Flow Rate (LPM) 2 10/21/24 16:00 10/21/24 16:31 10/21/24 18:01 Temperature Temperature Source Pulse Rate 75 84 85 Pulse Rate [Right] Respiratory Rate Blood Pressure 142/79 H 180/101 H 144/94 H Blood Pressure [Right Arm] Blood Pressure Mean [Right Arm] 02 Sat by Pulse Oximetry 94 L 95 95 Oxygen Delivery Method Oxygen Flow Rate (LPM) 10/21/24 18:31 Temperature Temperature Source Pulse Rate 108 H Pulse Rate [Right] Respiratory Rate Blood Pressure 121/98 H Blood Pressure [Right Arm] Blood Pressure Mean [Right Arm] 02 Sat by Pulse Oximetry 96 Oxygen Delivery Method Oxygen Flow Rate (LPM) Lab Data Labs: Lab Results 10/21/24 14:40: WBC 13.9 H, RBC 5.55 H, Hgb 16.5 H, Hct 50.8 H, MCV 91.5, MCH 29.7, MCHC 32.5, RDW 14.9, Plt Count 284, MPV 9.9, Neut % (Auto) 61.6, Lymph % (Auto) 28.3, [place] % (Auto) 7.1, Eos % (Auto) 1.4, Baso % (Auto) 0.4, Neut # (Auto) 8.5 H, Lymph # (Auto) 3.9, [place] # (Auto) 1.0, Eos # (Auto) 0.2, Baso # (Auto) 0.1, ESR 7, Sodium 135 L, Potassium 3.8, Chloride 102, Carbon Dioxide 24, Anion Gap 12.8, BUN 47 H, Creatinine 1.50 H, Estimated Creat Clear 56, Estimated GFR 35 L, Est GFR ( Amer) 42 L, Glucose 333 H, Calcium 9.5, Magnesium 2.0, Total Bilirubin 0.9, AST 28, ALT 32, Alkaline Phosphatase 126, Troponin I < 0.01, C-Reactive Protein 7.2 H, NT-Pro-B Natriuret Pep 5910 H, Total Protein 6.7, Albumin 4.2, Globulin 2.5, Albumin/Globulin Ratio 1.7, Lipase 99 10/21/24 14:45: VBG pH 7.26 L, VBG pCO2 58.3 H, VBG pO2 45.2 H, VBG HCO3 25.6, V BG Total CO2 27.4 H, VBG O2 Saturation 74.7 H, VBG Base Excess -1.4, VBG Lactic Acid 2.1 H 10/21/24 14:56: Lactate 1.9 10/21/24 18:00: Troponin I < 0.01 10/21/24 18:15: Urine Color Yellow, Urine Appearance Clear, Urine pH 6.0, Ur Specific [place] <= 1.005, Urine Protein Negative, Urine Glucose (UA) 3+, Urine Ketones Negative, Urine Blood Negative, Urine Nitrate Negative, Urine Bilirubin Negative, Urine Urobilinogen 0.2, Ur Leukocyte Esterase Negative, Urine RBC None, Urine WBC Occasional, Ur Squamous Epith Cells Occasional, Urine Bacteria None Response Orders (Tests/Meds): ED MEDICATIONS Discontinued Medications Generic Name Dose Route Start Last Admin Trade Name Freq PRN Reason Stop Dose Admin Albuterol/Ipratropium 9 ml 10/21/24 14:44 10/21/24 15:12 Ipratropium/Albuterol 3 Ml Neb IH 10/21/24 14:45 9 ml ONCE ONE Administration Furosemide 40 mg 10/21/24 17:22 10/21/24 17:59 Furosemide 40mg/4ml Vial IV 10/21/24 17:23 40 mg ONCE ONE Administration Magnesium Sulfate 2 gm in 50 mls @ 50 mls/hr 10/21/24 14:44 10/21/24 15:11 Magnesium Sulfate 2gm/50ml Premix IV 10/21/24 15:43 50 mls/hr ONCE ONE Administration Ceftriaxone Sodium 2 gm/ 100 mls @ 200 mls/hr 10/21/24 14:46 10/21/24 15:12 Sodium Chloride IV 10/21/24 15:15 200 mls/hr ONCE ONE Administration Azithromycin 500 mg/ Sodium 250 mls @ 250 mls/hr 10/21/24 14:46 10/21/24 15:12 Chloride IV 10/21/24 14:47 250 mls/hr ONCE ONE Administration Iopamidol 90 ml 10/21/24 17:29 10/21/24 17:32 Iopamidol-370 (76%);100ml Bottle IV 10/21/24 17:30 90 ml ONCE ONE Administration Methylprednisolone Sodium Succinate 125 mg 10/21/24 14:44 10/21/24 15:11 Methylprednisolone Sod Succ 125mg Vial IV 10/21/24 14:45 125 mg ONCE ONE Administration Sodium Chloride 50 ml 10/21/24 17:29 10/21/24 17:33 0.9 % Sodium Chloride 50 Ml Vial IV 10/21/24 17:30 50 ml ONCE ONE Administration Sodium Chloride 10 ml 10/21/24 17:29 10/21/24 17:33 Sodium Chloride 0.9% 10ml Syr (Rad Only) IV 10/21/24 17:30 10 ml ONCE ONE Administration ORDERS Category Date Time Status CTA Chest [CT angio chest PE protocol] Stat Cat Scan 10/21/24 14:45 Completed BNP [NT Pro Brain Natriuretic Pep.] Stat Lab 10/21/24 14:40 Completed C-Reactive Protein Stat Lab 10/21/24 14:40 Completed CBC [Complete Blood Count Auto Diff] Stat Lab 10/21/24 14:40 Completed Comprehensive Metabolic Panel Stat Lab 10/21/24 14:40 Completed Erythrocyte Sedimentation Rate Stat Lab 10/21/24 14:40 Completed Full Resp Panel w/COVID ([facility]) Routine Lab 10/21/24 19:34 Ordered Lactic Acid Stat Lab 10/21/24 14:56 Completed Lipase Stat Lab 10/21/24 14:40 Completed Magnesium Stat Lab 10/21/24 14:40 Completed Trop I [Troponin I] Stat Lab 10/21/24 14:40 Completed Troponin I Q3H Lab 10/21/24 18:00 Completed Troponin I Q3H Lab 10/21/24 20:45 Ordered Urinalysis and Microscopic Stat Lab 10/21/24 18:15 Completed Blood Culture Stat Micro 10/21/24 15:02 Received Venous Blood Gas Stat RT 10/21/24 14:45 Completed
[2024-10-21 14:57] LABS: Hematocrit 50.8 % (37.0-47.0); Hemoglobin 16.5 g/dL (12.2-16.2); Immature Granulocytes % 1.2 %; Mean Corpuscular HGB Conc 32.5 g/dL (31.8-35.4); Mean Corpuscular Hemoglobin 29.7 pg (27.0-31.2); Mean Corpuscular Volume 91.5 fl (81-99); Nucleated Red Blood Cells % 0 %; Platelet Count 284 K/mm3 (142-424); Red Blood Count 5.55 M/mm3 (4.20-5.40); Red Cell Distribution Width-SD 49.8 fL; White Blood Count 13.9 K/mm3 (4.8-10.8)
[2024-10-21 14:57] LABS: VBG HCO3 25.6 mmol/L (23-30); VBG PH 7.26 mmol/L (7.31-7.41); VBG PO2 45.2 mmol/L (28-40)
[2024-10-21 15:01] LABS: Lactate Venous 2.1 mmol/L (0.4-2.0); VBG PCO2 58.3 mmol/L (35-51)
[2024-10-21] MEDS: MAGNESIUM SULFATE IN WATER 2 GM/50 ML PIGGYBACK IV (15:11)
[2024-10-21] MEDS: METHYLPREDNISOLONE SOD SUCC 125MG VIAL 125 MG IV (15:11)
[2024-10-21] MEDS: IPRATROPIUM/ALBUTEROL 3 ML NEB 9 ML IH (15:12)
[2024-10-21] MEDS: AZITHROMYCIN 500 MG in 0.9 % SODIUM CHLORIDE 250 ML 250 MG IV (15:12)
[2024-10-21 16:42] LABS: Alanine Aminotransferase 32 U/L (12-78); Albumin Level 4.2 g/dl (3.5-5.0); Albumin/Globulin Ratio 1.7 (1.1-1.8); Alkaline Phosphatase 126 U/L (38-126); Anion Gap 12.8 mEq/L (5-15); Aspartate Amino Transferase 28 U/L (14-36); Bilirubin,Total 0.9 mg/dl (0.2-1.3); Blood Urea Nitrogen 47 mg/dl (7-17); Calcium 9.5 mg/dl (8.4-10.2); Carbon Dioxide 24 mmol/L (22.0-30.0); Chloride 102 mmol/L (98-107); Creatinine Clearance Estimated 56 mL/min (50-200); Creatinine,Serum 1.50 mg/dl (0.52-1.04); Estimated Glomerular Filt Rate 35 ml/min (>60); GFR (African American) 42 ML/MIN (>60); Globulin 2.5 g/dL (1.3-3.2); Glucose 333 mg/dl (74-100); Lipase 99 U/L (23-300); Magnesium 2.0 mg/dl (1.6-2.3); Potassium 3.8 mmoL/L (3.5-5.1); Sodium 135 mmol/L (136-145); Total Protein,Serum 6.7 g/dl (6.3-8.2)
--- NOTE | 2024-10-21 16:46 | PC.NURSE ---
I called radiology to inquire about the pt not going to scan yet. He states he is on his way to get her now.
[2024-10-21 16:47] LABS: C-Reactive Protein 7.2 mg/L (0-4)
[2024-10-21 17:09] LABS: NT Pro Brain Natriuretic Pep. 5910 pg/mL (0-125)
[2024-10-21 17:15] LABS: Troponin I < 0.01 ng/ml (0.00-0.034)
[2024-10-21] MEDS: IOPAMIDOL-370 (76%);100ML BOTTLE 90 ML IV (17:32)
[2024-10-21] MEDS: SODIUM CHLORIDE 0.9% 10ML SYR (RAD ONLY) 10 ML IV (17:33)
[2024-10-21] MEDS: 0.9 % SODIUM CHLORIDE 50 ML VIAL IV (17:33)
[2024-10-21] MEDS: FUROSEMIDE 40MG/4ML VIAL 40 MG IV (17:59)
--- NOTE | 2024-10-21 18:19 | PC.NURSE ---
I called radiology to check on the status of the pts CTA. She states it has been sent to [facility] but will check on it.
[2024-10-21 18:22] LABS: Microscopic, Urine URINE MICROSCOPIC (MICROSCOPIC)
[2024-10-21 18:23] LABS: Bilirubin,Urine Negative (Negative); Color,Urine YELLOW (Yellow); Glucose,Urine (UA) 3+ (Negative); Ketones,Urine Negative (Negative); Leukocyte Esterase,Urine Negative (Negative); PH,Urine 6.0 (5.0-8.5); Protein,Urine Negative (Negative); Specific Gravity, Urine <= 1.005 (1.005-1.030); Urobilinogen,Urine 0.2 EU/dl (0.2)
[2024-10-21 18:45] LABS: Troponin I < 0.01 ng/ml (0.00-0.034)
[2024-10-21 18:58] LABS: Reflex Lactic Add Lactic Reflex
[2024-10-21 19:07] LABS: Squamous Epithelial Cell,Urine Occasional #/hpf (0-5); WBC,Urine Occasional #/hpf (0-3)
--- NOTE | 2024-10-21 20:05 | EXP.HP ---
History of Present Illness *Admission Date: 10/22/24 *Reason for visit:: Shortness of breath *History of present illness: Stephanie Kulkarni is a 63-year-old female with medical significant for COPD on room air (2 L as needed), reported asthma, current tobacco type 2 diabetes, hypertension, GERD, HFpEF, A-fib on Xarelto, CAD with stents, anxiety/depression who presents with 2 weeks of progressive shortness of breath. Patient states during this time, she is also having increased productive cough for which she was evaluated in the ED about a week ago and was discharged with doxycycline and prednisone. Patient has been adherent to these medication, including her Advair, albuterol, DuoNebs every 6 hours but continued to have shortness of breath to the point she again returned to the ED. She denies chest pain, fever/chills, abdominal pain, urinary symptoms. Workup in the ED significant for WBC 13.9, VBG pH 7.26 PCO2 58.3, BNP 5910. CTA chest bilateral lower lobe concerning for pneumonia/infection versus secretions. She had restricted and was given DuoNeb, Solu-Medrol 0.25 mg, ceftriaxone, azithromycin, Lasix 40 mg. Patient continued to have increased work of breathing, restricted airway requiring 2 L nasal cannula. Case discussed with ED provider and decision made to admit patient for acute on chronic hypoxic respiratory failure secondary to COPD exacerbation. [facility] Disclaimer: The information contained in this section may have been updated after the patient was seen, as this information can be updated by other users. Medical History Sinusitis Cough Pleural effusion Encounter for screening for malignant neoplasm of lung Lung nodule Smoking greater than 30 pack years COPD mixed type Dyspnea on exertion Chronic a-fib History of COVID-19 Sleep apnea Migraine History of gastroesophageal reflux (GERD) Diabetes mellitus, type 2 History of left heart catheterization (LHC) Breast cancer Cardiac murmur Atypical angina Abnormal stress test Neuropathic pain Cardiomyopathy Left carotid bruit Tobacco dependence syndrome ADRIANA (obstructive sleep apnea) Diastolic dysfunction Ex-smoker Abnormal EKG HTN (hypertension) Tachycardia induced cardiomyopathy Fatigue IDDM (insulin dependent diabetes mellitus) Neuropathy Congestive heart failure Diabetes mellitus Surgical History History of right heart catheterization (RHC) Tubal ligation status History of tonsillectomy Family History Other Family history of COPD (chronic obstructive pulmonary disease) Family history of GERD Family history of cancer Family history of diabetes mellitus type II Family history of hyperlipidemia Family history of hypertension Family history of migraine headaches Family history of myocardial infarction Family history of stroke Social History Smoking Status: Never smoker second hand exposure: No alcohol intake: never counseling provided: none substance use type: marijuana current occupational status: retired, disabled and other Travel in the last 8 weeks?: None household members: family and children housing: house current occupational exposures/hazards: No caffeine: No Have you lived/traveled outside [place] in past 30 days?: No Contact w/someone who lives/traveled outside US past 30 days?: No Exposure to someone with infectious disease in past 14 days?: No Do you have a fever (greater than 100.4 F or 38 C)?: No Have you tested positive for COVID-19?: No Exposed to someone with COVID-19 in past 14 days?: No Do you have a sore throat?: No Do you have a cough?: No Do you have any weakness?: No Do you have any diarrhea?: No Are you experiencing any unusual bleeding?: No Do you have any muscle aches/pain?: No Do you have any abdominal pain?: No Are you experiencing loss of taste or smell?: No Other Medical History Have you received the Flu Vaccine for this season: No Have you received the Pneumonia Vaccine: Yes Meds Home Medications and Allergies Home Medications ?Medication ?Instructions ?Recorded ?Confirmed ?Type albuterol sulfate 90 mcg/actuation 2 puff inhalation Q6HP PRN SOA 12/17/23 10/21/24 History aerosol inhaler (Ventolin HFA) benzonatate 100 mg capsule 100 mg PO TIDP PRN Cough #30 caps 12/17/23 10/21/24 Rx fluticasone propionate 45 2 inh inhalation BID 12/17/23 10/21/24 History mcg-salmeterol 21 mcg/actuation HFA inhaler (Advair HFA) rivaroxaban 15 mg tablet (Xarelto) 15 mg PO HS 12/17/23 10/21/24 History metoprolol tartrate 100 mg tablet 300 mg (3 x 100 mg) PO BID 90 days 02/19/24 10/21/24 Rx #540 tabs insulin lispro 100 unit/mL 1 sliding scale dose SQ 05/13/24 10/21/24 Rx subcutaneous cartridge USEASDIRECTD #15 mL bumetanide 1 mg tablet 1 mg PO BID #180 tabs 05/17/24 10/21/24 Rx blood-glucose meter (Accu-Chek #1 ea 07/08/24 10/21/24 Rx Guide Glucose Meter) lancets 28 gauge (FreeStyle #100 ea 07/08/24 10/21/24 Rx Lancets) pen needle, diabetic 32 gauge x #100 ea 08/26/24 10/21/24 Rx 5/32 lancets (Accu-Chek Softclix #200 ea 10/07/24 10/21/24 Rx Lancets) atorvastatin 80 mg tablet 80 mg PO HS 10/21/24 10/21/24 History clonazepam 0.5 mg tablet 0.5 mg PO HS 10/21/24 10/21/24 History clopidogrel 75 mg tablet 75 mg PO DAILY 10/21/24 10/21/24 History cyclobenzaprine 10 mg tablet 10 mg PO Q8HP PRN Muscle Spasms 10/21/24 10/21/24 History dapagliflozin propanediol 10 mg 10 mg PO DAILY 10/21/24 10/21/24 History tablet (Farxiga) insulin lispro 100 unit/mL See Rx Instructions .Route .COMPLEX 10/21/24 10/21/24 History subcutaneous solution pantoprazole 40 mg tablet,delayed 40 mg PO DAILY 10/21/24 10/21/24 History release spironolactone 25 mg tablet 25 mg PO DAILY 10/21/24 10/21/24 History valsartan 40 mg tablet 40 mg PO DAILY 10/21/24 10/21/24 History New Prescriptions to Start Prescriptions: Allergies Allergy/AdvReac Type Severity Reaction Status Date / Time oxycodone (From PERCOCET) Allergy Unknown Unknown Verified 07/14/24 15:36 allergy reaction isosorbide (From Imdur) AdvReac Severe Headache Verified 07/14/24 15:36 Exam Data for Last 24 hours Vital signs and Labs for Last 24 Hours: Temp Pulse Resp BP Pulse Ox O2 Del Method O2 Flow Rate 98.3 F 85 20 105/84 L 93 L Nasal Cannula 2 10/21/24 14:41 10/21/24 19:33 10/21/24 15:30 10/21/24 19:33 10/21/24 19:33 10/21/24 14:41 10/21/24 14:41 Laboratory Results - last 24 hr 10/21/24 14:40: WBC 13.9 H, RBC 5.55 H, Hgb 16.5 H, Hct 50.8 H, MCV 91.5, MCH 29.7, MCHC 32.5, RDW 14.9, Plt Count 284, MPV 9.9, Neut % (Auto) 61.6, Lymph % (Auto) 28.3, [place] % (Auto) 7.1, Eos % (Auto) 1.4, Baso % (Auto) 0.4, Neut # (Auto) 8.5 H, Lymph # (Auto) 3.9, [place] # (Auto) 1.0, Eos # (Auto) 0.2, Baso # (Auto) 0.1, ESR 7, Sodium 135 L, Potassium 3.8, Chloride 102, Carbon Dioxide 24, Anion Gap 12.8, BUN 47 H, Creatinine 1.50 H, Estimated Creat Clear 56, Estimated GFR 35 L, Est GFR ( Amer) 42 L, Glucose 333 H, Calcium 9.5, Magnesium 2.0, Total Bilirubin 0.9, AST 28, ALT 32, Alkaline Phosphatase 126, Troponin I < 0.01, C-Reactive Protein 7.2 H, NT-Pro-B Natriuret Pep 5910 H, Total Protein 6.7, Albumin 4.2, Globulin 2.5, Albumin/Globulin Ratio 1.7, Lipase 99 10/21/24 14:45: VBG pH 7.26 L, VBG pCO2 58.3 H, VBG pO2 45.2 H, VBG HCO3 25.6, VBG Total CO2 27.4 H, VBG O2 Saturation 74.7 H, VBG Base Excess -1.4, VBG Lactic Acid 2.1 H 10/21/24 14:56: Lactate 1.9 10/21/24 18:00: Troponin I < 0.01 10/21/24 18:15: Urine Color Yellow, Urine Appearance Clear, Urine pH 6.0, Ur Specific [place] <= 1.005, Urine Protein Negative, Urine Glucose (UA) 3+, Urine Ketones Negative, Urine Blood Negative, Urine Nitrate Negative, Urine Bilirubin Negative, Urine Urobilinogen 0.2, Ur Leukocyte Esterase Negative, Urine RBC None, Urine WBC Occasional, Ur Squamous Epith Cells Occasional, Urine Bacteria None I & O for Last 24 hours: Intake & Output 10/18/24 10/19/24 10/20/24 10/21/24 23:59 23:59 23:59 23:59 Weight 95.254 kg Constitutional Constitutional: no acute distress *Routine HEENT Exam Head: Present normocephalic Eye: Present EOMI and PERRL ENT: Present mucous membranes moist *Routine Neck Exam Neck: Present supple; Absent lymphadenopathy *Routine Respiratory Exam Respiratory: Present wheezes and diminished air movement; Absent CTA bilaterally *Routine Cardiovascular Exam Cardiovascular: Present RRR *Routine Abdominal Exam Abdominal: Present soft and normoactive bowel sounds; Absent tenderness *Routine Rectal Exam Rectal:: deferred *Routine Genitalia Exam Genitalia:: deferred *Routine Extremities Exam Extremities: Absent cyanosis, clubbing or edema *Routine Skin Exam Skin: Present warm; Absent rash *Routine Neurological Exam Neurological: Present alert and oriented X3 Assessment and Plan *Assessment and plan (1) Atypical pneumonia: Status: Acute Category: Medical Code(s): J18.9 - Pneumonia, unspecified organism (2) URI (upper respiratory infection): Status: Acute Category: Medical Code(s): J06.9 - Acute upper respiratory infection, unspecified (3) Acute on chronic respiratory failure with hypoxia and hypercapnia: Status: Acute Category: Medical Code(s): J96.21 - Acute and chronic respiratory failure with hypoxia; J96.22 - Acute and chronic respiratory failure with hypercapnia (4) Acute exacerbation of chronic obstructive pulmonary disease: Status: Acute Category: Medical Code(s): J44.1 - Chronic obstructive pulmonary disease with (acute) exacerbation (5) CKD (chronic kidney disease): Status: Acute Category: Medical Code(s): N18.9 - Chronic kidney disease, unspecified (6) Diabetes mellitus, type 2: Status: Acute Category: Medical Code(s): E11.9 - Type 2 diabetes mellitus without complications (7) Chronic a-fib: Status: Acute Category: Medical Code(s): I48.20 - Chronic atrial fibrillation, unspecified (8) Diastolic CHF: Status: Acute Category: Medical Code(s): I50.30 - Unspecified diastolic (congestive) heart failure Plan Stephanie Kulkarni is a 63-year-old female with medical significant for COPD on room air (2 L as needed), reported asthma, current tobacco, type 2 diabetes, hypertension, GERD, HFpEF, A-fib on Xarelto, CAD with stents, anxiety/depression who presents with 2 weeks of progressive shortness of breath. Patient states during this time, she is also having increased yellow productive cough for which she was evaluated in the ED about a week ago and was discharged with doxycycline and prednisone. Patient has been adherent to these medications, including her Advair, albuterol, DuoNebs every 6 hours but continued to have shortness of breath to the point she again returned to the ED. She denies chest pain, fever/chills, abdominal pain, urinary symptoms, lower extremity edema. Workup in the ED significant for WBC 13.9, VBG pH 7.26 PCO2 58.3, BNP 5910. CTA chest bilateral lower lobe concerning for pneumonia/infection versus secretions. She had restricted and was given DuoNeb, Solu-Medrol 0.25 mg, ceftriaxone, azithromycin, Lasix 40 mg. Patient continued to have increased work of breathing, restricted airway requiring 2 L nasal cannula. Case discussed with ED provider and decision made to admit patient for acute on chronic hypoxic respiratory failure secondary to COPD exacerbation. #Acute on chronic hypoxic, hypercapnic respiratory failure #Acute COPD exacerbation #Community-acquired pneumonia #Rhinovirus infection ? Presented with progressive shortness of breath, yellow productive sputum. Initial WBC 13.9, requiring 2 L. ? CTA chest bilateral lower lobe concerning for pneumonia/infection versus secretions. Respiratory panel positive for rhinovirus, possible superimposed bacterial infection. Lower concern for aspiration given rhinoviral infection. ? Patient feels much better after arrival to the floor, but continues to have diffuse moderate wheezing. Given improvement of symptoms, will defer BiPAP for hypercapnia at this time and continue with medical management. ? Started DuoNebs every 4 hours, Pulmicort twice daily. ? Continue prednisone 40 mg daily. ? Started levofloxacin day 2/5 of antibiotics tomorrow. Ceftriaxone, azithromycin given in the ED. ? Follow-up sputum, blood cultures, morning ABG. ? Pulmonology consulted, pending further recommendations and to establish care. Likely needs a break from Advair, PFTs. ? Follow-up morning CBC. #HFpEF ? Does not seem to be volume overloaded, though BNP elevated 5910 more likely represents chronic heart failure. CBC is hemoconcentrated, and clinically looks dry on initial evaluation. ? ECHO December 2023 LVEF 50%, elevated RVSP 40 to 45 mmHg with normal RV function. ? Follow-up repeat ECHO as previously it showed small anterior pericardial effusion without tamponade, has not followed up with cardiology. ? Continue home Bumex 1 mg twice daily. ED gave IV Lasix 40 mg. ? Follow-up morning CMP. #Type 2 diabetes ? Hemoglobin A1c 10.4% in December 2023. Follow-up repeat A1c. ? Started Lantus 15 units nightly, LDSSI, ACHS glucose checks. ? Resume home medication once reconciled. #Hypertension ? Resume home medications once reconciled. Normal BP at this time. #A-fib ? Currently rate controlled. Resume home Xarelto. ? Resume home medications once reconciled. #CAD with stents, PAD, CHITRA ? Continue home aspirin, statin. #CKD stage IIIa ? Creatinine 1.5, GFR 35. Stable. ? Avoid nephrotoxic medications, renally dose medications. ? Follow-up morning RFTs. #Anxiety/depression ? Continue home Klonopin 0.5 mg nightly, resume home medications once reconciled. #Current tobacco smoker ? Counseled, not ready for cessation. ? Nicotine patch as needed. Full code DVT prophylaxis: Home Xarelto
[2024-10-21 20:16] LABS: Adenovirus,PCR Not Detected (NotDetected); Chlamydophila Pneumoniae, PCR Not Detected (NotDetected); Coronavirus 19, PCR Not Detected (NotDetected); Coronovirus HKU1,PCR Not Detected (NotDetected); Influenza A, PCR Not Detected (NotDetected); Influenza AH1, 2009 Not Detected (NotDetected); Influenza AH1, PCR Not Detected (NotDetected); Influenza AH3,PCR Not Detected (NotDetected); Influenza B, PCR Not Detected (NotDetected); Mycoplasma Pneumoniae, PCR Not Detected (NotDetected); Parainfluenza 1, PCR Not Detected (NotDetected); Parainfluenza 2, PCR Not Detected (NotDetected); Parainfluenza 3, PCR Not Detected (NotDetected); Parainfluenza 4, PCR Not Detected (NotDetected)
--- NOTE | 2024-10-21 20:31 | PC.NURSE ---
pt arrived to floor via wheelchair from ed at 2027.
[2024-10-21 21:15] LABS: POC Glucose,Bedside 254 (70-110)
[2024-10-21] MEDS: humaLOG 100 UNITS/ML 10ML VIAL (SSI) SUBCUT (21:17)
[2024-10-21 21:32] LABS: Troponin I < 0.01 ng/ml (0.00-0.034)
--- NOTE | 2024-10-21 21:43 | PC.NURSE ---
Provider called and notified of pt requesting nighttime home medications. med rec complete.
[2024-10-21] MEDS: IPRATROPIUM/ALBUTEROL 3 ML NEB IH (21:45)
[2024-10-22] VITALS (7 sets, daily range): BP systolic 143–167; BP diastolic 73–96; PULSE 66–121; RESP 18–22; TEMP 36.5–36.9; O2SAT 92–98; BMI 33.3
--- NOTE | 2024-10-22 00:16 | PC.NURSE ---
Pt placed on droplet precautions due to Rhino Virus.
--- NOTE | 2024-10-22 02:05 | CA_ITS ---
APPROVED REPORT EXAM: Comprehensive 2D, Doppler, and color-flow Echocardiogram Recreation Establishment Manager: YONIS Carreon, RVS Ht: 5 ft 7 in Wt: 205lbs BSA: 2.04 BP: 105/84 mmHg Indications: HF,CM, Pneumonia, COPD, Afib, DM, CAD, DD, ADRIANA Echo Enhancing Agent Comments: TDS: limited windows Heart rate became elevated with breathing treatment, patient scanned supine 2D Dimensions IVSd 0.91 cm LVEF (Visual) 31.50 % PWd 1.08 cm LA Volume 64.60 mL LVDd 5.46 cm LA Volume Index [id number] mL/m2 (M/F) 16-34 LVDs 4.64 cm EF AP4 32.30 % Left Atrium 4.89 cm GL Strain -14.5 % M-Mode Dimensions LA Diam 5.11 cm (1.9-4.0) EPSs 1.96 cm TAPSE 1.41 (<1.7) LV Diastology E Decel Time 157 (160-240 msec) E/A Ratio 6.20 Aortic Valve TAMMI Index 0.86 cm2/m2 AoV Peak Brett. 105.0 (50-130 cm/s) AO Peak GR. 4.40 mmHg AO Mean GR. 2.20 (<5 mmHg) AO VTI 17.3 (18-25 cm) TAMMI (VTI) 1.80 (2.5-4.5 cm2) Mitral Valve MV A Velocity 18.0 (40-130 cm/s) E/A Ratio 6.20 Tricuspid Valve TR P. Velocity 247.00 cm/s RAP Estimate 10.00 mmHg RVSP 34.50 mmHg Left Ventricle The left ventricle is normal size. Left ventricular systolic function is mildly reduced. There is increased left ventricular wall thickness. The septum is asynchronous. The left ventricular diastolic function is indeterminate. LVEF is 40-45% Right Ventricle The right ventricle is mildly dilated. The right ventricular systolic function is normal. Atria The left atrium is mildly dilated. The right atrium is moderately dilated. There is no color Doppler evidence of interatrial shunt. Aortic Valve The aortic valve is mildly thickened. There is no hemodynamically significant aortic valvular stenosis. No aortic regurgitation is present. Mitral Valve The mitral valve is normal in structure. No evidence of mitral valve stenosis. Trace mitral regurgitation is present. Tricuspid Valve The tricuspid valve leaflets are thin and pliable. Mild to moderate tricuspid regurgitation. RVSP is 25-30 mmHg. Pulmonic Valve The pulmonary valve is grossly normal in structure. Trace pulmonic valve regurgitation is present. Great Vessels The aortic root is normal in size. IVC is normal in size and collapses >50% with inspiration. Pericardium There is no pericardial effusion. Other Information Study Quality: Technically Difficult Conclusion Technically difficult study. Mildly reduced LV systolic function (LVEF 40-45%). Asynchronous septum. Mild RV dilation with normal RV function. Biatrial dilation. Mild to moderate TR. Electronically signed by : Torrie Orlando MD 10/22/2024 09:24:57
[2024-10-22] MEDS: IPRATROPIUM/ALBUTEROL 3 ML NEB IH ×2 (02:11→06:16)
[2024-10-22] MEDS: SODIUM CHLORIDE 3% 15ML NEB 3 ML IH (02:15)
--- NOTE | 2024-10-22 03:58 | PC.NURSE ---
Pt A&Ox4. Pt VSS. Pt is on 2L/NC. Pt has diminished lung sounds with wheezing. Pt has a strong productive cough. Pt placed on droplet precautions dt Rhino Virus. Pt swabbed x2 for MRSA. Pt receiving breathing treatments from respiratory. Pt not voicing any concerns. Pt medicated per MAY. Pt resting w/ call light in reach. POC ongoing.
--- NOTE | 2024-10-22 04:18 | PC.NURSE ---
Pt NO Needle Sticks or Blood Pressure Measurements to RIGHT Arm due to right sided mastectomy.
[2024-10-22] MEDS: humaLOG 100 UNITS/ML 10ML VIAL (SSI) SUBCUT ×2 (05:12→12:10)
[2024-10-22 05:15] LABS: POC Glucose,Bedside 380 (70-110)
[2024-10-22 06:11] LABS: Hematocrit 48.7 % (37.0-47.0); Hemoglobin 16.0 g/dL (12.2-16.2); Immature Granulocytes % 1.2 %; Mean Corpuscular HGB Conc 32.9 g/dL (31.8-35.4); Mean Corpuscular Hemoglobin 29.9 pg (27.0-31.2); Mean Corpuscular Volume 91.0 fl (81-99); Nucleated Red Blood Cells % 0 %; Platelet Count 243 K/mm3 (142-424); Red Blood Count 5.35 M/mm3 (4.20-5.40); Red Cell Distribution Width-SD 49.5 fL; White Blood Count 12.1 K/mm3 (4.8-10.8)
[2024-10-22 06:12] LABS: Albumin Level 4.0 g/dl (3.5-5.0); Chloride 102 mmol/L (98-107)
[2024-10-22 06:13] LABS: Potassium 4.5 mmoL/L (3.5-5.1); Sodium 133 mmol/L (136-145)
[2024-10-22 06:15] LABS: Anion Gap 14.5 mEq/L (5-15); Blood Urea Nitrogen 55 mg/dl (7-17); Carbon Dioxide 21 mmol/L (22.0-30.0); Creatinine Clearance Estimated 50 mL/min (50-200); Creatinine,Serum 1.70 mg/dl (0.52-1.04); Estimated Glomerular Filt Rate 30 ml/min (>60); GFR (African American) 36 ML/MIN (>60)
[2024-10-22 06:16] LABS: Alanine Aminotransferase 32 U/L (12-78); Albumin/Globulin Ratio 1.5 (1.1-1.8); Alkaline Phosphatase 124 U/L (38-126); Aspartate Amino Transferase 25 U/L (14-36); Bilirubin,Total 0.4 mg/dl (0.2-1.3); Calcium 9.3 mg/dl (8.4-10.2); Globulin 2.7 g/dL (1.3-3.2); Magnesium 2.6 mg/dl (1.6-2.3); Total Protein,Serum 6.7 g/dl (6.3-8.2)
[2024-10-22] MEDS: BUDESONIDE 0.5MG/2ML NEB 0.5 MG IH (06:16)
[2024-10-22 06:29] LABS: Glucose 412 mg/dl (74-100)
--- NOTE | 2024-10-22 06:30 | PC.NURSE ---
notified of critical lab result of Glucose of 412.
[2024-10-22 06:44] LABS: Thyroid Stimulating Hormone 0.14 uIU/mL (0.465-4.68)
[2024-10-22] MEDS: humaLOG 100 UNITS/ML 10ML VIAL (SSI) 10 UNIT SUBCUT (06:47)
[2024-10-22 07:02] LABS: Hemoglobin A1C 8.5 % (4.0-6.0)
--- NOTE | 2024-10-22 07:18 | EXP.ACUTE.PN ---
Subjective *Date: 10/22/24 *Time: 08:50 Interval history: Patient feeling somewhat better this morning but still requiring 2 L oxygen continuously. Still wheezing on exam. Reports being jittery, suspect secondary to steroids which have also caused her blood sugar to be above 400 this morning. Requesting her metoprolol, confirms that she is on 300 mg twice daily. Denies chest pain, nausea, vomiting. Medical Exam Vital signs and Labs for Last 24 Hours: Vital Signs Temp Pulse Pulse Resp BP BP Pulse Ox 10/22/24 06:52 10/22/24 06:16 113 H 10/22/24 06:16 88 10/22/24 06:16 95 10/22/24 05:00 10/22/24 04:00 98.4 F 100 H 18 147/90 H 93 L 10/22/24 03:00 10/22/24 02:17 88 20 10/22/24 02:11 88 10/22/24 02:11 88 10/22/24 02:11 92 L 10/22/24 01:00 10/21/24 23:59 98.1 F 92 H 18 119/77 96 10/21/24 23:00 10/21/24 21:46 97 H 10/21/24 21:46 97 H 10/21/24 21:46 98 10/21/24 21:00 10/21/24 20:40 10/21/24 20:36 98.9 F 96 H 18 114/67 98 10/21/24 20:27 97.6 F 60 16 128/89 10/21/24 20:04 97.6 F 60 16 128/89 95 10/21/24 19:33 85 105/84 L 93 L 10/21/24 19:01 90 154/82 H 94 L 10/21/24 18:31 108 H 121/98 H 96 10/21/24 18:01 85 144/94 H 95 10/21/24 16:31 84 180/101 H 95 10/21/24 16:00 75 142/79 H 94 L 10/21/24 15:30 82 20 152/86 H 100 10/21/24 15:00 89 14 124/100 H 95 10/21/24 14:41 98.3 F 97 H 18 111/65 94 L O2 Del Method O2 Flow Rate 10/22/24 06:52 Nasal Cannula 2 08/07/25 06:16 10/22/24 06:16 10/22/24 06:16 Nasal Cannula 2 10/22/24 05:00 Nasal Cannula 2 10/22/24 04:00 Nasal Cannula 2 10/22/24 03:00 Nasal Cannula 2 10/22/24 02:17 10/22/24 02:11 10/22/24 02:11 10/22/24 02:11 Room Air 10/22/24 01:00 Nasal Cannula 2 10/21/24 23:59 Nasal Cannula 2 10/21/24 23:00 Nasal Cannula 2 10/21/24 21:46 10/21/24 21:46 10/21/24 21:46 Nasal Cannula 2 10/21/24 21:00 Nasal Cannula 2 10/21/24 20:40 Nasal Cannula 2 10/21/24 20:36 Nasal Cannula 2 10/21/24 20:27 Room Air 10/21/24 20:04 10/21/24 19:33 10/21/24 19:01 10/21/24 18:31 10/21/24 18:01 10/21/24 16:31 10/21/24 16:00 10/21/24 15:30 10/21/24 15:00 10/21/24 14:41 Nasal Cannula 2 Intake and Output 10/21/24 10/21/24 10/22/24 15:59 23:59 07:59 Intake Total 360 / 360 Output Total 820 / 820 350 / 350 Balance -820 / -460 Intake: Intake, Oral Amount 360 / 360 Output: Output, Urine Amount 820 / 820 350 / 350 Other: Number of Voids 1 Weight 95.254 kg 93.395 kg 96.388 kg Patient Weight 10/22/24 23:59 Weight 96.388 kg Laboratory Results - last 24 hr 10/21/24 14:40: WBC 13.9 H, RBC 5.55 H, Hgb 16.5 H, Hct 50.8 H, MCV 91.5, MCH 29.7, MCHC 32.5, RDW 14.9, Plt Count 284, MPV 9.9, Neut % (Auto) 61.6, Lymph % (Auto) 28.3, [place] % (Auto) 7.1, Eos % (Auto) 1.4, Baso % (Auto) 0.4, Neut # (Auto) 8.5 H, Lymph # (Auto) 3.9, [place] # (Auto) 1.0, Eos # (Auto) 0.2, Baso # (Auto) 0.1, ESR 7, Sodium 135 L, Potassium 3.8, Chloride 102, Carbon Dioxide 24, Anion Gap 12.8, BUN 47 H, Creatinine 1.50 H, Estimated Creat Clear 56, Estimated GFR 35 L, Est GFR ( Amer) 42 L, Glucose 333 H, Calcium 9.5, Magnesium 2.0, Total Bilirubin 0.9, AST 28, ALT 32, Alkaline Phosphatase 126, Troponin I < 0.01, C-Reactive Protein 7.2 H, NT-Pro-B Natriuret Pep 5910 H, Total Protein 6.7, Albumin 4.2, Globulin 2.5, Albumin/Globulin Ratio 1.7, Lipase 99 10/21/24 14:45: VBG pH 7.26 L, VBG pCO2 58.3 H, VBG pO2 45.2 H, VBG HCO3 25.6, VBG Total CO2 27.4 H, VBG O2 Saturation 74.7 H, VBG Base Excess -1.4, VBG Lactic Acid 2.1 H 10/21/24 14:56: Lactate 1.9 10/21/24 18:00: Troponin I < 0.01 10/21/24 18:15: Urine Color Yellow, Urine Appearance Clear, Urine pH 6.0, Ur Specific [place] <= 1.005, Urine Protein Negative, Urine Glucose (UA) 3+, Urine Ketones Negative, Urine Blood Negative, Urine Nitrate Negative, Urine Bilirubin Negative, Urine Urobilinogen 0.2, Ur Leukocyte Esterase Negative, Urine RBC None, Urine WBC Occasional, Ur Squamous Epith Cells Occasional, Urine Bacteria None 10/21/24 20:11: Chlamy pneumoniae PCR Not detected, Adenovirus (PCR) Not detected, B. pertussis DNA (PCR) Not detected, Coronavirus OC43 (PCR) Not detected, Coronavirus HKU1 (PCR) Not detected, Coronavirus 229E (PCR) Not detected, SARS-CoV-2 (PCR) Not detected, Coronavirus NL63 (PCR) Not detected, Human Metapneumovir PCR Not detected, Influenza A (H1) PCR Not detected, Influ A (H1N1/09) PCR Not detected, Influenza A (H3) PCR Not detected, Influenza Type A (PCR) Not detected, Influenza Type B (PCR) Not detected, M. pneumoniae (PCR) Not detected, Parainfluenza 1 (PCR) Not detected, Parainfluenza 2 (PCR) Not detected, Parainfluenza 3 (PCR) Not detected, Parainfluenza 4 (PCR) Not detected, RSV (PCR) Not detected, Entero/Rhino (PCR) Detected A 10/21/24 20:54: Troponin I < 0.01 10/21/24 21:03: POC Glucose 254 H 10/22/24 05:06: POC Glucose 380 H* 10/22/24 05:19: WBC 12.1 H, RBC 5.35, Hgb 16.0, Hct 48.7 H, MCV 91.0, MCH 29.9, MCHC 32.9, RDW 15.0, Plt Count 243, MPV 10.2, Neut % (Auto) 86.0 H, Lymph % (Auto) 10.4, [place] % (Auto) 2.2, Eos % (Auto) 0.0 L, Baso % (Auto) 0.2, Neut # (Auto) 10.4 H, Lymph # (Auto) 1.3, [place] # (Auto) 0.3, Eos # (Auto) 0.0, Baso # (Auto) 0.0, Sodium 133 L, Potassium 4.5, Chloride 102, Carbon Dioxide 21 L, Anion Gap 14.5, BUN 55 H, Creatinine 1.70 H, Estimated Creat Clear 50, Estimated GFR 30 L, Est GFR ( Amer) 36 L, Glucose 412 H* D, Hemoglobin A1c 8.5 H, Calcium 9.3, Magnesium 2.6 H D, Total Bilirubin 0.4, AST 25, ALT 32, Alkaline Phosphatase 124, Total Protein 6.7, Albumin 4.0, Globulin 2.7, Albumin/Globulin Ratio 1.5, TSH 0.14 L I & O for Labs for Last 24 Hours: Intake & Output 10/19/24 10/20/24 10/21/24 10/22/24 23:59 23:59 23:59 23:59 Intake Total 360 / 360 Output Total 820 / 820 350 / 350 Balance -820 / -460 Weight 93.395 kg 96.388 kg Constitutional: Present mild distress, obese, chronically ill appearing and cooperative Head: Present atraumatic ENT: Present normal exam and mucous membranes moist Neck: Present normal inspection Respiratory: Present prolonged expiratory phase, wheezes and normal respiratory effort; Absent rhonchi or crackles Cardiac: Present Irregularly Regular GI: Present soft and normal bowel sounds; Absent distention or tenderness Extremities: Present full ROM Comment:: Right UE with lymphedema Skin: Present intact; Absent erythema Neuro: Present Grossly Intact, alert, awake, oriented x 3 and moves all extremities Assessment and Plan *Assessment and plan (1) Atypical pneumonia: Status: Acute Category: Medical Code(s): J18.9 - Pneumonia, unspecified organism (2) URI (upper respiratory infection): Status: Acute Category: Medical Code(s): J06.9 - Acute upper respiratory infection, unspecified (3) Acute on chronic respiratory failure with hypoxia and hypercapnia: Status: Acute Category: Medical Code(s): J96.21 - Acute and chronic respiratory failure with hypoxia; J96.22 - Acute and chronic respiratory failure with hypercapnia (4) Acute exacerbation of chronic obstructive pulmonary disease: Status: Acute Category: Medical Code(s): J44.1 - Chronic obstructive pulmonary disease with (acute) exacerbation (5) CKD (chronic kidney disease): Status: Acute Category: Medical Code(s): N18.9 - Chronic kidney disease, unspecified (6) Diabetes mellitus, type 2: Status: Acute Category: Medical Code(s): E11.9 - Type 2 diabetes mellitus without complications (7) Chronic a-fib: Status: Acute Category: Medical Code(s): I48.20 - Chronic atrial fibrillation, unspecified (8) Diastolic CHF: Status: Acute Category: Medical Code(s): I50.30 - Unspecified diastolic (congestive) heart failure (9) Rhinovirus infection: Status: Acute Category: Medical Code(s): B34.8 - Other viral infections of unspecified site Plan Stephanie Kulkarni is a 63-year-old female with medical significant for COPD on room air (2 L as needed), reported asthma, current tobacco, type 2 diabetes, hypertension, GERD, HFpEF, A-fib on Xarelto, CAD with stents, anxiety/depression who presents with 2 weeks of progressive shortness of breath. Patient states during this time, she is also having increased yellow productive cough for which she was evaluated in the ED about a week ago and was discharged with doxycycline and prednisone. Admitted for failure of outpatient treatment. Feeling somewhat better this morning. Awaiting pulmonology evaluation. Continues to require inpatient management. Comprehensive respiratory panel positive for rhinovirus. Problems addressed as follows: #Acute on chronic hypoxic, hypercapnic respiratory failure #Acute COPD exacerbation #Community-acquired pneumonia #Rhinovirus infection ? Presented with progressive shortness of breath, yellow productive sputum. Initial WBC 13.9, requiring 2 L. -White count this morning was 12.1, hemoglobin 16. On 2 L continuously to maintain sats above 90%. Wean as tolerated for goal sat greater than 90 ? CTA chest bilateral lower lobe concerning for pneumonia/infection versus secretions. Respiratory panel positive for rhinovirus, possible superimposed bacterial infection. Lower concern for aspiration given rhinoviral infection. ? Continue DuoNebs every 4 hours scheduled, Pulmicort twice daily. ? Continue prednisone 40 mg daily. ? Continue Levaquin 750 mg daily, today is day 2 of 5 ? Sputum and blood cultures pending. - Pulmonology consulted, pending further recommendations and to establish care. Likely needs a break from Advair, PFTs. ? Repeat CBC, CMP, magnesium ordered for the morning #HFpEF ? Does not seem to be volume overloaded, though BNP elevated 5910 more likely represents chronic heart failure. CBC is hemoconcentrated, and clinically looks dry on initial evaluation. ? ECHO December 2023 LVEF 50%, elevated RVSP 40 to 45 mmHg with normal RV function. ? Follow-up repeat ECHO as previously it showed small anterior pericardial effusion without tamponade, has not followed up with cardiology. ? Continue home Bumex 1 mg twice daily. #Type 2 diabetes ? Hemoglobin A1c improved at 8.5. states she has a pump at home (OmniPod and Dexcom) but does not know how to use it so it sits in her drawer. Open to referral to endocrinology. - Can Lantus at creased dose from home regimen at 20 units daily. Continue to limit fingersticks ACHS. - Resume home 70/30 combo 28 units twice daily - Significant elevation in blood sugar this morning at 412 likely secondary to steroid effect. #Hypertension: # Atrial fibrillation, chronic # CAD with stents, PAD, CHITRA -Resume home metoprolol tartrate 300 mg twice daily, Xarelto 15 mg nightly, valsartan 40 mg daily, ? Continue home Plavix 75 mg daily, Lipitor 80 mg nightly #CKD stage IIIa ? Kidney function stable on morning labs with BUN 55, creatinine 1.7. ? Avoid nephrotoxic medications, renally dose medications. #Anxiety/depression: Continue home Klonopin 0.5 mg nightly as needed #Current tobacco smoker ? Counseled, not ready for cessation. ? Nicotine patch as needed. Full code DVT prophylaxis: Home Xarelto Diabetic diet
[2024-10-22 07:21] LABS: Free T4 (Free Thyroxine) 1.27 ng/dl (0.78-2.19)
[2024-10-22] MEDS: BUMETANIDE 1 MG TABLET PO (08:16)
[2024-10-22] MEDS: ASPIRIN EC 81MG TABLET 81 MG PO (08:16)
[2024-10-22] MEDS: DAPAGLIFLOZIN PROPANEDIOL 10 MG TABLET PO (08:16)
[2024-10-22] MEDS: NICOTINE 21MG/24HR PATCH 21 MG TD (08:16)
--- NOTE | 2024-10-22 08:20 | PC.NURSE ---
Two unsuccesful ABG attempts, pt stated no more sticks. aware.
[2024-10-22 08:26] LABS: MRSA DNA PCR Negative (Negative)
--- NOTE | 2024-10-22 08:44 | HMH.PHAINT1 ---
Pharmacy Intervention Comments: MEDICATION RECONCILIATION COMPLETED ON PATIENT USING EXTERNAL FILL HISTORY FROM PHARMACY. -KEN OLIVIER, CRISTELAD
[2024-10-22] MEDS: humaLOG MIX 75/25 3ML FLEXPEN 28 UNIT SUBCUT (09:45)
[2024-10-22] MEDS: CLOPIDOGREL 75MG TAB 75 MG PO (09:45)
[2024-10-22] MEDS: SPIRONOLACTONE 25MG TABLET 25 MG PO (09:45)
[2024-10-22] MEDS: IRBESARTAN 75MG TABLET 37.5 MG PO (09:45)
[2024-10-22] MEDS: METOPROLOL TARTRATE 50MG TABLET 300 MG PO (09:46)
--- NOTE | 2024-10-22 09:46 | EXP.PULM.CON ---
History of Present Illness History of present illness: Ms. Kulkarni is a 63-year-old with severe COPD FEV1 at 48% predicted from 2023, hypertension, heart failure preserved EF, CKD III, A-fib on Xarelto, CAD status post stent presented with worsening respiratory status productive cough pulmonary was called for further evaluation and management. Patient at baseline using Advair HFA 45 2 puffs twice daily. Admits baseline stable respiratory symptom control not needing her rescue more than once every week with no nocturnal symptoms up until her recent episode of worsening respiratory distress. She continued to smoke, now smoking 1 pack every 2 days. [facility] Disclaimer: The information contained in this section may have been updated after the patient was seen, as this information can be updated by other users. Medical History Sinusitis Cough Pleural effusion Encounter for screening for malignant neoplasm of lung Lung nodule Smoking greater than 30 pack years COPD mixed type Dyspnea on exertion Chronic a-fib History of COVID-19 Sleep apnea Migraine History of gastroesophageal reflux (GERD) Diabetes mellitus, type 2 History of left heart catheterization (LHC) Breast cancer Cardiac murmur Atypical angina Abnormal stress test Neuropathic pain Cardiomyopathy Left carotid bruit Tobacco dependence syndrome ADRIANA (obstructive sleep apnea) Diastolic dysfunction Ex-smoker Abnormal EKG HTN (hypertension) Tachycardia induced cardiomyopathy Fatigue IDDM (insulin dependent diabetes mellitus) Neuropathy Congestive heart failure Diabetes mellitus Surgical History History of right heart catheterization (RHC) Tubal ligation status History of tonsillectomy Family History Other Family history of COPD (chronic obstructive pulmonary disease) Family history of GERD Family history of cancer Family history of diabetes mellitus type II Family history of hyperlipidemia Family history of hypertension Family history of migraine headaches Family history of myocardial infarction Family history of stroke Social History Smoking Status: Never smoker second hand exposure: No alcohol intake: never counseling provided: none substance use type: marijuana current occupational status: retired, disabled and other Travel in the last 8 weeks?: None household members: family and children housing: house current occupational exposures/hazards: No caffeine: No Have you lived/traveled outside US in past 30 days?: No Contact w/someone who lives/traveled outside US past 30 days?: No Exposure to someone with infectious disease in past 14 days?: No Do you have a fever (greater than 100.4 F or 38 C)?: No Have you tested positive for COVID-19?: No Exposed to someone with COVID-19 in past 14 days?: No Do you have a sore throat?: No Do you have a cough?: No Do you have any weakness?: No Do you have any diarrhea?: No Are you experiencing any unusual bleeding?: No Do you have any muscle aches/pain?: No Do you have any abdominal pain?: No Are you experiencing loss of taste or smell?: No Review of Systems Constitutional Constitutional: Reports anorexia, Reports body ache(s) and Reports fatigue Eyes Eyes: Denies eye discharge, Denies dry eyes, Denies irritation and Denies itchy eyes ENT Ears, Nose, Mouth, and Throat: Denies epistaxis, Denies facial pain, Denies lip swelling and Denies throat swelling *Cardiovascular Cardiovascular: Reports dyspnea and Reports dyspnea on exertion *Respiratory Respiratory: Denies change in phlegm color, Reports chest congestion, Reports cough, Reports dyspnea, Reports dyspnea on exertion, Denies excessive phlegm production and Reports wheezing *Gastrointestinal Gastrointestinal: Denies abdominal pain, Denies belching and Denies cramping *Musculoskeletal Musculoskeletal: Reports back pain, Reports myalgias and Reports other (No small joint swelling or Pain) Psychiatric Psychiatric: Denies homicidal ideation and Denies suicidal ideation Endocrine Endocrine: Reports fatigue and Denies heat intolerance Hematologic/Lymphatic Hematologic/Lymphatic: Denies easy bleeding and Denies lymphadenopathy Allergic/Immunologic Allergic/Immunologic: Denies itchy eyes, Denies lip swelling, Denies throat swelling and Reports wheezing Pulmonology Exam Inpatient Vital signs and Labs for Last 24 Hours: Temp Pulse Resp BP Pulse Ox O2 Del Method O2 Flow Rate 97.7 F 121 H 22 167/96 H 98 Nasal Cannula 2 10/22/24 08:00 10/22/24 08:00 10/22/24 08:00 10/22/24 08:00 10/22/24 08:00 10/22/24 08:51 10/22/24 08:51 Laboratory Results - last 24 hr 10/21/24 14:40: WBC 13.9 H, RBC 5.55 H, Hgb 16.5 H, Hct 50.8 H, MCV 91.5, MCH 29.7, MCHC 32.5, RDW 14.9, Plt Count 284, MPV 9.9, Neut % (Auto) 61.6, Lymph % (Auto) 28.3, [place] % (Auto) 7.1, Eos % (Auto) 1.4, Baso % (Auto) 0.4, Neut # (Auto) 8.5 H, Lymph # (Auto) 3.9, [place] # (Auto) 1.0, Eos # (Auto) 0.2, Baso # (Auto) 0.1, ESR 7, Sodium 135 L, Potassium 3.8, Chloride 102, Carbon Dioxide 24, Anion Gap 12.8, BUN 47 H, Creatinine 1.50 H, Estimated Creat Clear 56, Estimated GFR 35 L, Est GFR ( Amer) 42 L, Glucose 333 H, Calcium 9.5, Magnesium 2.0, Total Bilirubin 0.9, AST 28, ALT 32, Alkaline Phosphatase 126, Troponin I < 0.01, C-Reactive Protein 7.2 H, NT-Pro-B Natriuret Pep 5910 H, Total Protein 6.7, Albumin 4.2, Globulin 2.5, Albumin/Globulin Ratio 1.7, Lipase 99 10/21/24 14:45: VBG pH 7.26 L, VBG pCO2 58.3 H, VBG pO2 45.2 H, VBG HCO3 25.6, VBG Total CO2 27.4 H, VBG O2 Saturation 74.7 H, VBG Base Excess -1.4, VBG Lactic Acid 2.1 H 10/21/24 14:56: Lactate 1.9 10/21/24 18:00: Troponin I < 0.01 10/21/24 18:15: Urine Color Yellow, Urine Appearance Clear, Urine pH 6.0, Ur Specific [place] <= 1.005, Urine Protein Negative, Urine Glucose (UA) 3+, Urine Ketones Negative, Urine Blood Negative, Urine Nitrate Negative, Urine Bilirubin Negative, Urine Urobilinogen 0.2, Ur Leukocyte Esterase Negative, Urine RBC None, Urine WBC Occasional, Ur Squamous Epith Cells Occasional, Urine Bacteria None 10/21/24 20:11: Chlamy pneumoniae PCR Not detected, Adenovirus (PCR) Not detected, B. pertussis DNA (PCR) Not detected, Coronavirus OC43 (PCR) Not detected, Coronavirus HKU1 (PCR) Not detected, Coronavirus 229E (PCR) Not detected, SARS-CoV-2 (PCR) Not detected, Coronavirus NL63 (PCR) Not detected, Human Metapneumovir PCR Not detected, Influenza A (H1) PCR Not detected, Influ A (H1N1/09) PCR Not detected, Influenza A (H3) PCR Not detected, Influenza Type A (PCR) Not detected, Influenza Type B (PCR) Not detected, M. pneumoniae (PCR) Not detected, Parainfluenza 1 (PCR) Not detected, Parainfluenza 2 (PCR) Not detected, Parainfluenza 3 (PCR) Not detected, Parainfluenza 4 (PCR) Not detected, RSV (PCR) Not detected, Entero/Rhino (PCR) Detected A 10/21/24 20:54: Troponin I < 0.01 10/21/24 21:03: POC Glucose 254 H 10/22/24 02:22: MRSA (PCR) Negative 10/22/24 05:06: POC Glucose 380 H* 10/22/24 05:16: Free T4 1.27 10/22/24 05:19: WBC 12.1 H, RBC 5.35, Hgb 16.0, Hct 48.7 H, MCV 91.0, MCH 29.9, MCHC 32.9, RDW 15.0, Plt Count 243, MPV 10.2, Neut % (Auto) 86.0 H, Lymph % (Auto) 10.4, [place] % (Auto) 2.2, Eos % (Auto) 0.0 L, Baso % (Auto) 0.2, Neut # (Auto) 10.4 H, Lymph # (Auto) 1.3, [place] # (Auto) 0.3, Eos # (Auto) 0.0, Baso # (Auto) 0.0, Sodium 133 L, Potassium 4.5, Chloride 102, Carbon Dioxide 21 L, Anion Gap 14.5, BUN 55 H, Creatinine 1.70 H, Estimated Creat Clear 50, Estimated GFR 30 L, Est GFR ( Amer) 36 L, Glucose 412 H* D, Hemoglobin A1c 8.5 H, Calcium 9.3, Magnesium 2.6 H D, Total Bilirubin 0.4, AST 25, ALT 32, Alkaline Phosphatase 124, Total Protein 6.7, Albumin 4.0, Globulin 2.7, Albumin/Globulin Ratio 1.5, TSH 0.14 L I & O for Labs for Last 24 Hours: Intake & Output 10/19/24 10/20/24 10/21/24 10/22/24 23:59 23:59 23:59 23:59 Intake Total 840 / 840 Output Total 820 / 820 350 / 350 Balance -820 / -460 490 / 490 Weight 205 lb 14.4 oz 212 lb 8 oz Constitutional: Present mild distress Head: Present normocephalic and atraumatic ENT: Present normal exam, normal oropharynx and mucous membranes moist Neck: Present normal inspection and full ROM Respiratory: Present prolonged expiratory phase and able to speak in complete sentences; Absent respiratory distress or wheezes Cardiac: Present S1/S2, Tachycardia and radial pulses present GI: Present soft and distention; Absent tenderness or guarding Rectal (female): Present deferred (female): Present deferred Skin: Present intact; Absent cyanosis or jaundice Neuro: Present alert, awake and oriented x 3 Extremities: Present normal inspection; Absent clubbing or cyanosis Psychiatric: Present normal affect and cooperative Meds Home Medications and Allergies Home Medications ?Medication ?Instructions ?Recorded ?Confirmed ?Type rivaroxaban 15 mg tablet (Xarelto) 15 mg PO QPMWITHMEAL 12/17/23 10/22/24 History insulin lispro 100 unit/mL 1 sliding scale dose SQ 05/13/24 10/21/24 Rx subcutaneous cartridge USEASDIRECTD #15 mL bumetanide 1 mg tablet 1 mg PO BID #180 tabs 05/17/24 10/21/24 Rx blood-glucose meter (Accu-Chek #1 ea 07/08/24 10/21/24 Rx Guide Glucose Meter) lancets 28 gauge (FreeStyle #100 ea 07/08/24 10/21/24 Rx Lancets) pen needle, diabetic 32 gauge x #100 ea 08/26/24 10/21/24 Rx 5/32 lancets (Accu-Chek Softclix #200 ea 10/07/24 10/21/24 Rx Lancets) atorvastatin 80 mg tablet 80 mg PO HS 10/21/24 10/21/24 History clonazepam 0.5 mg tablet 0.5 mg PO DAILYP PRN Agitation 10/21/24 10/22/24 History clopidogrel 75 mg tablet 75 mg PO DAILY 10/21/24 10/21/24 History cyclobenzaprine 10 mg tablet 10 mg PO Q8HP PRN Muscle Spasms 10/21/24 10/21/24 History dapagliflozin propanediol 10 mg 10 mg PO DAILY 10/21/24 10/21/24 History tablet (Farxiga) pantoprazole 40 mg tablet,delayed 40 mg PO DAILY 10/21/24 10/21/24 History release spironolactone 25 mg tablet 25 mg PO DAILY 10/21/24 10/21/24 History valsartan 40 mg tablet 40 mg PO DAILY 10/21/24 10/21/24 History insulin NPH-regular 70-30 U-100 28 unit SQ BID 10/22/24 10/22/24 History insulin 100 unit/mL subcutaneous pen (Humulin 70/30 U-100 KwikPen) insulin glargine 100 unit/mL (3 10 unit SQ HS 10/22/24 10/22/24 History mL) subcutaneous pen (Lantus Solostar U-100 Insulin) metoprolol tartrate 100 mg tablet 300 mg PO BID 10/22/24 10/22/24 History New Prescriptions to Start Prescriptions: Allergies Allergy/AdvReac Type Severity Reaction Status Date / Time oxycodone (From PERCOCET) Allergy Unknown Unknown Verified 07/14/24 15:36 allergy reaction isosorbide (From Imdur) AdvReac Severe Headache Verified 07/14/24 15:36 Results Laboratory Findings 10/22/24 05:19 10/22/24 05:19 Abnormal lab findings: Abnormal Labs 10/21/24 10/21/24 10/21/24 14:40 14:45 20:11 WBC 13.9 H RBC 5.55 H Hgb 16.5 H Hct 50.8 H Neut % (Auto) Eos % (Auto) Neut # (Auto) 8.5 H VBG pH 7.26 L VBG pCO2 58.3 H VBG pO2 45.2 H VBG Total CO2 27.4 H VBG O2 Saturation 74.7 H VBG Lactic Acid 2.1 H Sodium 135 L Carbon Dioxide BUN 47 H Creatinine 1.50 H Estimated GFR 35 L Est GFR ( Amer) 42 L Glucose 333 H POC Glucose Hemoglobin A1c Magnesium C-Reactive Protein 7.2 H NT-Pro-B Natriuret Pep 5910 H TSH Entero/Rhino (PCR) Detected A 10/21/24 10/22/24 10/22/24 21:03 05:06 05:19 WBC 12.1 H RBC Hgb Hct 48.7 H Neut % (Auto) 86.0 H Eos % (Auto) 0.0 L Neut # (Auto) 10.4 H VBG pH VBG pCO2 VBG pO2 VBG Total CO2 VBG O2 Saturation VBG Lactic Acid Sodium 133 L Carbon Dioxide 21 L BUN 55 H Creatinine 1.70 H Estimated GFR 30 L Est GFR ( Amer) 36 L Glucose 412 H* D POC Glucose 254 H 380 H* Hemoglobin A1c 8.5 H Magnesium 2.6 H D C-Reactive Protein NT-Pro-B Natriuret Pep TSH 0.14 L Entero/Rhino (PCR) Assessment and Plan *Assessment and plan (1) Acute on chronic respiratory failure with hypoxia and hypercapnia: Status: Acute Category: Medical Code(s): J96.21 - Acute and chronic respiratory failure with hypoxia; J96.22 - Acute and chronic respiratory failure with hypercapnia (2) Rhinovirus infection: Status: Acute Category: Medical Code(s): B34.8 - Other viral infections of unspecified site (3) Acute exacerbation of chronic obstructive pulmonary disease: Status: Acute Category: Medical Code(s): J44.1 - Chronic obstructive pulmonary disease with (acute) exacerbation Plan Ms. Kulkarni is a 63-year-old with severe COPD FEV1 at 48% predicted from 2023, hypertension, heart failure preserved EF, CKD III, A-fib on Xarelto, CAD status post stent presented with worsening respiratory status productive cough pulmonary was called for further evaluation and management. Patient at baseline using Advair HFA 45 2 puffs twice daily. Admits baseline stable respiratory symptom control not needing her rescue more than once every week with no nocturnal symptoms up until her recent episode of worsening respiratory distress. She continued to smoke, now smoking 1 pack every 2 days. Afebrile. Hemodynamically stable. Neutrophilic predominant leukocytosis upon admission. Blood gas upon admission venous, hypercarbic respiratory failure the pH is 7.26 and pCO2 58.3. CTA upon admission no evidence of pulmonary embolism. Right upper lobe pleural-based patchy infiltrate likely fibrosis, remained stable dating back to her CTs from July 2022. Bronchial thickening with mucous secretions, left greater than right. Respiratory viral PCR panel positive for enterorhinovirus. Cultures pending. Currently with nebulization therapy steroids, ceftriaxone and azithromycin. On initial examination examination mild respiratory distress. No significant wheezing noted on auscultation. On 2 L saturating 95%, weaned to room air saturations maintained at 92% and above Plan: Advair 250, 1 puff twice daily Albuterol/DuoNebs 4 times daily as needed 6-minute walk testing prior to discharge. Oxygen supplementation as needed to maintain O2 saturation above 90% and above Antibiotics can be weaned to cefdinir to complete a total of 5-day course Patient had a prior history of right-sided breast cancer status post resection and radiation. The noted CT findings in the right upper lobe likely from prior radiation fibrosis.
--- NOTE | 2024-10-22 09:56 | HMH.PTEV ---
Physical Therapy Evaluation Rehab PT IP Evaluation Start: 10/22/24 07:01 Freq: ONCE Status: Active Protocol: Document 10/22/24 09:54 RUBIO (Rec: 10/22/24 09:56 RUBIO [id number]) Subjective/History History History 3-year-old female with medical significant for COPD on room air (2 L as needed), reported asthma, current tobacco type 2 diabetes, hypertension, GERD, HFpEF, A- fib on Xarelto, CAD with stents, anxiety/depression who presents with 2 weeks of progressive shortness of breath. Patient states during this time, she is also having increased productive cough for which she was evaluated in the ED about a week ago and was discharged with doxycycline and prednisone. Patient has been adherent to these medication, including her Advair, albuterol, DuoNebs every 6 hours but continued to have shortness of breath to the point she again returned to the ED. She denies chest pain, fever/chills, abdominal pain, urinary symptoms. Workup in the ED significant for WBC 13.9, VBG pH 7.26 PCO2 58.3, BNP 5910. CTA chest bilateral lower lobe concerning for pneumonia/ infection versus secretions. She had restricted and was given DuoNeb, Solu-Medrol 0.25 mg, ceftriaxone, azithromycin, Lasix 40 mg. Patient continued to have increased work of breathing, restricted airway requiring 2 L nasal cannula. Case discussed with ED provider and decision made to admit patient for acute on chronic hypoxic respiratory failure secondary to COPD exacerbation. Pt reports she lives alone, [address] the home, and she is generally independent with all mobility without AD. Subjective Subjective Pt reports, I feel a whole lot better than I did. She agrees to mobility assessment. [facility] How much help from another person do you currently need... Turning from your None back to your side while in a flat bed without using bedrails? Moving from lying on None back to sitting on the side of a flat bed without using bedrails? Moving to and from a None bed to a chair ( including a wheelchair)? Standing up from a None chair using your arms? (e.g., wheelchair, bedside chair) Walking in hospital None room? Climbing 3-5 steps None with a railing? Mobility Score 24 Mobility Level [place] [id number] Walk 250 feet or more Mobility Calculator Rehab PT IP Eval Objective Appearance Patient Behavior Appropriate Patient Orientation Person,Place,Time Difficulty following none instructions Speech Pattern Clear Ambulation Patient Able to Yes Ambulate Ambulation Observation IP General Gait No Deviations/Normal Pattern Observation Ambulation Distance 30 (feet) Ambulation Assistive None Device Ambulation Ability Independent Balance Ability to Arise Able, uses arms to help Sitting Balance Steady, safe Standing Balance Narrow stance w/o support Dynamic Sitting Good Balance Ability Dynamic Standing Good Balance Ability Transfers Bed Transfer Ability Independent Chair Transfer Independent Ability Sit to Stand Bed Independent Transfer Ability Sit to Stand Chair Independent Transfer Ability Rehab PT IP prob,goals,plan Problems Date of Evaluation: 10/22/24 Discharge Plan PT Discharge Plan Pt is currently independent with all mobility and appropriate to return home once medically stable for d/ c. No need for skilled acute therapy services at this time. Eval Complexity Eval Charge Codes 75407 - Moderate Complexity PHYSICIAN CERTIFICATION: I certify the specified therapy services for Stephanie Kulkarni are required, authorized, and reviewed every 30 days.
--- OUTSIDE RECORDS SUMMARY | 2024-10-22 10:51 | XMS_ITS | Clinical Summary ---
Author Organization [facility] Address [address] [place] [address] Care Team Providers Care Sorter Pricer Name Role Phone Phil Madiha Fernández APRN Primary Care Provider [phone] Idris Jones MD Unavailable [phone] Allergies Active Allergy Reactions Criticality Noted [...] Patient not taking.Reported on 06/15/2024 Continuous Glucose Electrifier Operator (Dexcom G7 Electrifier Operator) device USE DIRECTED TO TEST BLOOD GLUCOSE LEVEL 4 Active Continuous Glucose Sensor (Dexcom G7 Sensor) [facility] [place] Active Active Problems Problem Noted Date [...] artery disease of n ative artery of [place] heart with stable angina pectoris 04/09/2022 Persistent atrial fibrillation 04/08/2022 Overview (04/13/2022): Added automatically from request for surgery [id number] Malignant neoplasm of overla pping sites of [...] Type Department Care Team Description 10/02/2024 Telephone [facility] [address], [address] [place] [phone] Lakesha Woodruff 09/25/2024 Telephone [facility] [address], [address] [place] [phone] Lisa Hurtado PA Image/Report Request; 2nd Request to Reports; Rcvd Records 09/21/2024 Telephone [facility] [address], [address] [place] [phone] Lisa Hurtado PA Appt Changes 08/15/2024 Orders Only External Location [address] [place] [address] Nickolas Hale MD 08/15/2024 Orders Only External Location [address] [place] [phone] Provider, External 08/15/2024 Orders Only External Location [address] [place] [address] Provider, External 08/15/2024 Orders Only External Location [address] [place] [phone] Provider, External 08/15/2024 Orders Only External Location [address] [place] [phone] Provider, External 08/15/2024 Orders Only External Location [address] [place] [phone] Provider, External 08/15/2024 Orders Only External Location [address] [place] [phone] Provider, External 08/15/2024 Orders Only External Location [address] [place] [address] Provider, External 08/15/2024 Orders Only External Location [address] [place] [address] Provider, External from Last 3 [...] drink first t alicja in the morning ([employer]) to steady your nerves or to get [...] Visit Medical Office Building Urology [address], [address] [place] [address] Lisa Hurtado PA [address] [place] [address] 03/22/2025 11:10 AM EST Office Visit [facility] [address], [address] [place] [address] Lisa Hurtado PA [address] [place] [phone] Health Maintenance Due Date Last Done Comments [facility]-Bone Density Scan 1960 [facility]-Depression Screening 1958 [facility]-Diabetes: Hemoglobin A1C 1958 [facility]-Medicare Annual Wellness (AWV) 1960 [facility]-/Child/Adol SDOH Screenings 1960 [id number] Vaccine (#1) 12/12/1963 Diabetes: Dental Exam 1968 [...] ORDERABLES Final Result [facility] [address] [place] [address] from Last 3 Months or Most Recently Relevant to Health Maintenance Insurance [address] [place] [id number] [facility] MEDICARE [place]ICAID[place] Advance Directives * Full Code (Latest Code Status on File) Date Activated Date Inactivated Comments 04/09/2022 5:08 AM 04/16/2022 5:29 PM Question Answer Comments Patient has decision-making capacity? Yes Care Teams Sorter Pricer Relationship Specialty Start Date End Date Madiha Villarreal APRN [address] [place] [id number] PCP - General 07/29/20 Idris Jones MD [address] [place] [phone] First Call Provider Interventional Cardiology 04/16/22
--- OUTSIDE RECORDS SUMMARY | 2024-10-22 10:51 | XMS_ITS | Encounter Summary ---
Author Organization Healthcare Address [address] [place] [address] Care Team Providers Care Supervisor Cd Area Name Role Phone Phil Madiha Fernández APRN Primary Care Provider [phone] Idris Jones MD Unavailable [phone] Encounter Details Date Type Department Care Team ([facility] st Contact Info) Description 08/15/2024 Orders Only External Location [address] [place] [phone] Provider, External Social History Tobacco Use Types [...] drink first t alicja in the morning ([employer]) to steady your nerves or to get [...] Urology [address], [address] [place] [address] Lisa Hurtado PA [address] [place] [address] 03/22/2025 11:10 AM EST Office Visit [place] [facility] [address], [address] [place] [address] Lisa Hurtado, THELMA [address] [place] [address] documented as of this encounter [...] documented as of this encounter Care Teams Supervisor Cd Area Relationship Specialty Start Date End Date Madiha Villarreal APRN [address] [place] [address] PCP - General 07/29/20 Idris Jones MD [address] [place] [address] First Call Provider Interventional Cardiology 04/16/22 documented as of this encounter
--- OUTSIDE RECORDS SUMMARY | 2024-10-22 10:51 | XMS_ITS | Encounter Summary ---
Author Organization Healthcare Address [address] [place] [address] Care Team Providers Care Instructional Paraprofessional Name Role Phone Madiha Villarreal APRN Primary Care Provider +1- [phone] Idris Jones MD Unavailable [phone] Encounter Details Date Type Department Care Team (Late st Contact Info) Description 10/02/[address] [facility] [address], 2nd [place] [address] Day, Lakesha D Social History [...] drink first t alicja in the morning (EYE-SANDBLAST CARVER) to steady your nerves or to get [...] Visit Medical Office Building Urology [address] [facility], [address] [place] [address] Lisa Hurtado PA [address] [address] 03/22/2025 11:10 AM EST Office Visit [facility] [address], 2[address] [place] [address] Lisa Hurtado PA [address] [facility] [place] [address] documented as of this encounter Visit Diagnoses Not on filedocumented in this encounter Additional Health Concerns Assessment Noted Time A fall risk assessment has been complete d for the patient 06/06/2022 3:25 PM EDT A Body Mass Index follow-up plan has been documented for the patient 10/24/2022 5:18 PM EDT documented as of this encounter Care Teams Instructional Paraprofessional Relationship Specialty Start Date End Date Madiha Villarreal APRN [address] [place] [address] PCP - General 07/29/20 Idris Jones MD [address] [place] [address] First Call Provider Interventional Cardiology 04/16/22 documented as of this encounter
--- OUTSIDE RECORDS SUMMARY | 2024-10-22 10:51 | XMS_ITS | Encounter Summary ---
Author Organization Healthcare Address [address] [place] [address] Care Team Providers Care Banquet Attendant Name Role Phone Phil Madiha Fernández APRN Primary Care Provider [phone]- [phone] Idris Jones MD Unavailable [phone] Encounter Details Date Type Department Care Team ([facility] st Contact Info) Description 08/15/2024 Orders Only External Location [address] [place] [phone] Provider, External Social History Tobacco Use Types [...] drink first t alicja in the morning (EYE-VICE PRESIDENT OF HUMAN RESOURCES) to steady your nerves or to get [...] Urology [address], [address] [place] [address] Lisa Hurtado PA [address] [place] [address] 03/22/2025 11:10 AM EST Office Visit [place] [facility] [address], 2nd [place] [address] Lisa Hurtado, THELMA [address] [place] [address] documented as of this encounter [...] documented as of this encounter Care Teams Banquet Attendant Relationship Specialty Start Date End Date Madiha Villarreal APRN [address] [place] [address] PCP - General 07/29/20 Idris Jones MD [address] [place] [address] First Call Provider Interventional Cardiology 04/16/22 documented as of this encounter
--- OUTSIDE RECORDS SUMMARY | 2024-10-22 10:51 | XMS_ITS | Encounter Summary ---
Author Organization Healthcare Address [address] [place] [address] Care Team Providers Care Seafood Farmer Name Role Phone Rudybal Madiha Fernández APRN Primary Care Provider [phone]- [phone] Idris Jones MD Unavailable [phone] Encounter Details Date Type Department Care Team ([facility] Contact Info) Description 01/05/2019 Orders Only External Location [address] [place] [phone] Provider, External Social History Tobacco Use Types [...] Office Building Urology [address] [facility], [address] [place] [address] Lisa Hurtado PA [address] [facility] [address] [place] [address] 03/22/2025 11:10 AM EST Office Visit [place] [facility] [address], 2nd [place] [address] Lisa Hurtado PA [id number] [place] [address] documented as of this encounter [...] on filedocumented in this encounter Care Teams Seafood Farmer Relationship Specialty Start Date End Date Madiha Villarreal APRN [address] [place] [address] PCP - General 07/29/20 Idris Jones MD [address] [place] [phone] First Call Provider Interventional Cardiology 04/16/22 documented as of this encounter
--- OUTSIDE RECORDS SUMMARY | 2024-10-22 10:51 | XMS_ITS | Encounter Summary ---
Author Organization Healthcare Address [address] [place] [address] Care Team Providers Care Virtualization Consultant Name Role Phone Phil Madiha Fernández APRN Primary Care Provider [phone]- [phone] Idris Jones MD Unavailable [phone] Encounter Details Date Type Department Care Team ([facility] st Contact Info) Description 08/15/2024 Orders Only External Location [address] [place] [address] Provider, External Social History Tobacco Use Types [...] drink first t alicja in the morning (EYE-FIXED ASSETS ACCOUNTANT) to steady your nerves or to get [...] Urology [address], [address] [place] [address] Lisa Hurtado PA [address] [place] [address] 03/22/2025 11:10 AM EST Office Visit [place] [facility] [address], 2[address] [place] [address] Lisa Hurtado, THELMA [address] [place] [address] documented as of this encounter [...] documented as of this encounter Care Teams Virtualization Consultant Relationship Specialty Start Date End Date Madiha Villarreal APRN [address] [place] [address] PCP - General 07/29/20 Idris Jones MD [address] [place] [address] First Call Provider Interventional Cardiology 04/16/22 documented as of this encounter
--- OUTSIDE RECORDS SUMMARY | 2024-10-22 10:51 | XMS_ITS | Clinical Summary ---
Author Organization [facility] Address [address] [place] [id number] Care Team Providers Care Rail Car Operator Name Role Phone Gopi Razo MD Primary Care Provider [phone] Allergies No known active allergies Medications cyclobenzaprine [...] season) 2023 INFLUENZA VACCINE 12/16/[address] [facility] Care Teams Rail Car Operator Relationship Specialty Start Date End Date Gopi Razo MD [address] [address] [place] [address] PCP - General Family Medicine 04/27/16
--- OUTSIDE RECORDS SUMMARY | 2024-10-22 10:51 | XMS_ITS | Encounter Summary ---
Author Organization Healthcare Address [address] [place] [address] Care Team Providers Care Ore Miner Name Role Phone Deric alonzocordell Fernández APRN Primary Care Provider [phone]- [phone] Idris Jones MD Unavailable [phone] Encounter Details Date Type Department Care Team (Late st Contact Info) Description 08/15/2024 Orders Only External Location [address] [place] [phone] Nickolas Hale MD [address] [address] Social History Tobacco Use Types [...] drink first t alicja in the morning (EYE-DAIRY NUTRITION CONSULTANT) to steady your nerves or to get [...] Upcoming Encounters Date Type Department Care Team ([facility] st Contact Info) Description 11/11/2024 10:50 AM EDT Office Visit Medical Office Building Urology [address] [facility], [address] [place] [address] Lisa Hurtado PA [address] [place] [address] 03/22/2025 11:10 AM EST Office Visit [place] [facility] [address], 2nd [place] [address] Lisa Hurtado, PA [address] [place] [address] documented as of this encounter [...] documented as of this encounter Care Teams Ore Miner Relationship Specialty Start Date End Date Madiha Villarreal APRN [address] [place] [address] PCP - General 07/29/20 Idris Jones MD [address] [place] [address] First Call Provider Interventional Cardiology 04/16/22 documented as of this encounter
--- OUTSIDE RECORDS SUMMARY | 2024-10-22 10:51 | XMS_ITS | Encounter Summary ---
Author Organization Healthcare Address [address] [place] [address] Care Team Providers Care Bike Shop Manager Name Role Phone Phil Madiha Fernández APRN Primary Care Provider [phone]- [phone] Idris Jones MD Unavailable [phone] Encounter Details Date Type Department Care Team ([facility] st Contact Info) Description 08/15/2024 Orders Only External Location [address] [place] [phone] Provider, External Social History Tobacco Use Types [...] drink first t alicja in the morning (EYE-FORENSIC CHEMIST) to steady your nerves or to get [...] Urology [address], [address] [place] [address] Lisa Hurtado PA [address] [place] [address] 03/22/2025 11:10 AM EST Office Visit [place] [facility] [address], [address] [place] [address] Lisa Hurtado, THELMA [address] [place] [address] documented as of this encounter [...] documented as of this encounter Care Teams Bike Shop Manager Relationship Specialty Start Date End Date Madiha Villarreal APRN [address] [place] [address] PCP - General 07/29/20 Idris Jones MD [address] [place] [address] First Call Provider Interventional Cardiology 04/16/22 documented as of this encounter
--- OUTSIDE RECORDS SUMMARY | 2024-10-22 10:51 | XMS_ITS | Encounter Summary ---
Author Organization Healthcare Address [address] [place] [address] Care Team Providers Care Turbine Room Attendant Name Role Phone Phil Madiha Fernández APRN Primary Care Provider [phone]- [phone] Idris Jones MD Unavailable [phone] Reason for Visit * Reason Onset Date Comments Appt Changes 09/21/2024 Encounter Details Date Type Department Care Team (Late st Contact Info) Description 09/21/2024 Telephone [place] [facility] [address], 2[address] [place] [address] Lisa Hurtado, PA [address] [place] [address] Appt Changes Social History Tobacco [...] drink first t alicja in the morning (EYE-WASTE TREATMENT OPERATOR) to steady your nerves or to [...] to 03/22 at 11:10 am in the [facility] at [address] [facility], [address], [address], mailed new reminder. documented in this encounter Plan of Treatment Upcoming Encounters Date Type Department Care Team (Late st Contact Info) Description 11/11/2024 10:50 AM EDT Office Visit Medical Office Building Urology [address] [facility], [address] [place] [address] Lisa Hurtado PA [phone] [place] [address] 03/22/2025 11:10 AM EST Office Visit [facility] [address], 2[address] [place] [address] Lisa Hurtado PA [phone] [place] [address] documented as of this encounter Visit Diagnoses Not on filedocumented in this encounter Additional Health Concerns Assessment Noted Time A fall risk assessment has been complete d for the patient 06/06/2022 3:25 PM EDT A Body Mass Index follow-up plan has been documented for the patient 10/24/2022 5:18 PM EDT documented as of this encounter Care Teams Turbine Room Attendant Relationship Specialty Start Date End Date Madhia Villarreal APRN [address] [place] [address] PCP - General 07/29/20 Idris Jones MD [address] [place] [phone] First Call Provider Interventional Cardiology 04/16/22 documented as of this encounter
--- OUTSIDE RECORDS SUMMARY | 2024-10-22 10:51 | XMS_ITS | Encounter Summary ---
Author Organization Healthcare Address [address] [place] [address] Care Team Providers Care Cottonseed Meat Presser Name Role Phone Phil Madiha Fernández APRN Primary Care Provider [phone]- [phone] Idris Jones MD Unavailable [phone] Encounter Details Date Type Department Care Team ([facility] st Contact Info) Description 08/15/2024 Orders Only External Location [address] [place] [phone] Provider, External Social History Tobacco Use Types [...] drink first t alicja in the morning (EYE-PUTTY REMOVER) to steady your nerves or to get [...] Urology [address], [address] [place] [address] Lisa Hurtado, PA [address] [place] [address] 03/22/2025 11:10 AM EST Office Visit [place] [facility] [address], 2[address] [place] [address] Lisa Hurtado, THELMA [address] [place] [address] documented as of this encounter [...] documented as of this encounter Care Teams Cottonseed Meat Presser Relationship Specialty Start Date End Date Madiha Villarreal APRN [address] [place] [address] PCP - General 07/29/20 Idris Jones MD [address] [place] [address] First Call Provider Interventional Cardiology 04/16/22 documented as of this encounter
--- OUTSIDE RECORDS SUMMARY | 2024-10-22 10:51 | XMS_ITS | Encounter Summary ---
Author Organization Healthcare Address [address] [place] [address] Care Team Providers Care Core Analyst Name Role Phone Madiha Villarreal Jolene MILNER Primary Care Provider [phone]- [phone] Idris Jones MD Unavailable [phone] Encounter Details Date Type Department Care Team (Late st Contact Info) Description 08/06/2011 Abstract [facility] [id number] [place] [address] Yumi Mccabe, RN [facility] Social [...] Medical Office Building Urology [address] [facility], [address] [place] [address] Lisa Hurtado PA [address] [place] [address] 03/22/2025 11:10 AM EST [facility] [address], 2[address] [place] [address] Lisa Hurtado PA [address] [place] [address] documented as of this encounter Visit Diagnoses Not on filedocumented in this encounter Care Teams Core Analyst Relationship Specialty Start Date End Date Madiha Villarreal APRN [address] [place] [address] PCP - General 07/29/20 Idris Jones MD [address] [place] [address] First Call Provider Interventional Cardiology 04/16/22 documented as of this encounter
--- OUTSIDE RECORDS SUMMARY | 2024-10-22 10:51 | XMS_ITS | Encounter Summary ---
Author Organization Healthcare Address [address] [place] [address] Care Team Providers Care Certified Professional Coder Name Role Phone Madiha Villarreal Jolene MILNER Primary Care Provider [phone]- [phone] Idris Jones MD Unavailable [phone] Encounter Details Date Type Department Care Team (Late st Contact Info) Description 08/06/2011 Abstract [facility] [address] [place] [address] Yumi Mccabe, RN [facility] Social [...] Visit Medical Office Building Urology [address] [facility], [address] [place] [address] Lisa Hurtado PA [address] [place] [address] 03/22/2025 11:10 AM EST Office Visit [place] [facility] [address], [address] [place] [address] Lisa Hurtado PA [address] [place] [address] documented as of this encounter Visit Diagnoses Not on filedocumented in this encounter Care Teams Certified Professional Coder Relationship Specialty Start Date End Date Madiha Villarreal APRN [address] [place] [address] PCP - General 07/29/20 Idris Jones MD [address] [place] [address] First Call Provider Interventional Cardiology 04/16/22 documented as of this encounter
--- OUTSIDE RECORDS SUMMARY | 2024-10-22 10:51 | XMS_ITS | Encounter Summary ---
Author Organization Healthcare Address [address] [place] [address] Care Team Providers Care Industrial Design Intern Name Role Phone Phil Madiha Fernández APRN Primary Care Provider [phone]- [phone] Idris Jones MD Unavailable [phone] Encounter Details Date Type Department Care Team ([facility] st Contact Info) Description 08/15/2024 Orders Only External Location [address] [place] [phone] Provider, External Social History Tobacco Use Types [...] drink first t alicja in the morning (EYE-TRACTOR CRANE ENGINEER) to steady your nerves or to get [...] Urology [address], [address] [place] [address] Lisa Hurtado PA [address] [place] [address] 03/22/2025 11:10 AM EST Office Visit [place] [facility] [address], [address] [place] [address] Lisa Hurtado, THELMA [address] [place] [address] documented as of this encounter [...] documented as of this encounter Care Teams Industrial Design Intern Relationship Specialty Start Date End Date Madiha Villarreal APRN [address] [place] [address] PCP - General 07/29/20 Idris Jones MD [address] [place] [address] First Call Provider Interventional Cardiology 04/16/22 documented as of this encounter
--- OUTSIDE RECORDS SUMMARY | 2024-10-22 10:51 | XMS_ITS | Encounter Summary ---
Author Organization Healthcare Address [address] [place] [address] Care Team Providers Care Iron And Steel Work Supervisor Name Role Phone Phil Madiha Fernández APRN Primary Care Provider [phone]- [phone] Idris Jones MD Unavailable [phone] Encounter Details Date Type Department Care Team ([facility] st Contact Info) Description 08/15/2024 Orders Only External Location [address] [place] [phone] Provider, External Social History Tobacco Use Types [...] drink first t alicja in the morning (EYE-PHARMACISTS) to steady your nerves or to get [...] Urology [address], [address] [place] [address] Lisa Hurtado PA [address] [place] [address] 03/22/2025 11:10 AM EST Office Visit [place] [facility] [address], 2[address] [place] [address] Lisa Hurtado, THELMA [address] [place] [address] documented as of this encounter [...] documented as of this encounter Care Teams Iron And Steel Work Supervisor Relationship Specialty Start Date End Date Madiha Villarreal APRN [address] [place] [address] PCP - General 07/29/20 Idris Jones MD [address] [place] [address] First Call Provider Interventional Cardiology 04/16/22 documented as of this encounter
--- OUTSIDE RECORDS SUMMARY | 2024-10-22 10:51 | XMS_ITS | Encounter Summary ---
Author Organization Healthcare Address [address] [place] [address] Care Team Providers Care Manager Insurance Name Role Phone Rudybal Madiha Fernández APRN Primary Care Provider [phone]- [phone] Idris Jones MD Unavailable [phone] Reason for Visit * Reason Onset Date Comments Image/Report Request 09/25/2024 2nd Request to Reports 09/25/2024 Rcvd Records 09/25/2024 Encounter Details Date Type Department Care Team (Late st Contact Info) Description 09/25/2024 Telephone [place] [facility] [address], [address] [place] [address] Lisa Hurtado, THELMA [address] [place] [address] Image/Report Request; 2nd Request to [...] drink first t alicja in the morning (EYE-DISC JOCKEY) to steady your nerves or to get [...] Received images, faxed another request for reports [phone] * Telephone Encounter - Yumi Posada - 09/25/2024 1:19 PM EDT Faxed request to [facility] for Ct and MRI images/report * Telephone Encounter - Ileana Horvath - 09/25/2024 9:12 AM EDT Clinical Concern/Question Reason for Call: Patient went to [facility], she thinks it has been a couple weeks and she says they did an MRI and she think CT scan. She is asking if Ms. Hurtado needs to see them? Requesting a call back. Best contact number: [phone] (mobile) if you call today she says call [phone] Optimal time of day to reach caller: ANYTIME Additional comments/information from caller: None Note: Please do not reply to this message. Follow-up communication and further actions as a result of this message need to be communicated with the patient directly, if the patient is not active onMyChart. If the patient is active on MyChart, they will receive notification of the communication/outcome via NewsBreak. documented in this encounter Plan of Treatment Upcoming Encounters Date Type Department Care Team ([facility] Contact Info) Description 11/11/2024 10:50 AM EDT Office Visit Medical Office Building Urology [address] [facility], [address] [place] [address] Lisa Hurtado PA [address] [place] [address] 03/22/2025 11:10 AM EST Office Visit [place] [facility] [address] [place] [address] Lisa Hurtado PA [address] [place] [address] documented as of this encounter Visit Diagnoses Not on filedocumented in this encounter Additional Health Concerns Assessment Noted Time A fall risk assessment has been complete d for the patient 06/06/2022 3:25 PM EDT A Body Mass Index follow-up plan has been documented for the patient 10/24/2022 5:18 PM EDT documented as of this encounter Care Teams Manager Insurance Relationship Specialty Start Date End Date Madiha Villarreal APRN [address] [place] [address] PCP - General 07/29/20 Idris Jones MD [address] [place] [phone] First Call Provider Interventional Cardiology 04/16/22 documented as of this encounter
--- OUTSIDE RECORDS SUMMARY | 2024-10-22 10:51 | XMS_ITS | Encounter Summary ---
Author Organization Healthcare Address [address] [place] [address] Care Team Providers Care Sales Representative Publications Name Role Phone Phil Madiha Fernández APRN Primary Care Provider [phone]- [phone] Idris Jones MD Unavailable [phone] Encounter Details Date Type Department Care Team ([facility] st Contact Info) Description 08/15/2024 Orders Only External Location [address] [place] [phone] Provider, External Social History Tobacco Use Types [...] drink first t alicja in the morning (EYE-VEGETABLES COOK) to steady your nerves or to get [...] Urology [address] [place] [address] Lisa Hurtado PA [address] [place] [address] 03/22/2025 11:10 AM EST Office Visit [place] [facility] [address], [address] [place] [address] Lisa Hurtado, THELMA [address] [place] [address] documented as of this encounter [...] documented as of this encounter Care Teams Sales Representative Publications Relationship Specialty Start Date End Date Madiha Villarreal APRN [address] [place] [address] PCP - General 07/29/20 Idris Jones MD [address] [place] [address] First Call Provider Interventional Cardiology 04/16/22 documented as of this encounter
--- OUTSIDE RECORDS SUMMARY | 2024-10-22 10:51 | XMS_ITS | Encounter Summary ---
Author Organization Healthcare Address [address] [place] [address] Care Team Providers Care Hand Decorator Name Role Phone Phil Madiha Fernández APRN Primary Care Provider [phone]- [phone] Idris Jones MD Unavailable [phone] Encounter Details Date Type Department Care Team ([facility] st Contact Info) Description 02/10/2024 Orders Only External Location [address] [place] [phone] Provider, External Social History Tobacco Use Types [...] drink first t alicja in the morning (EYE-ENGINEERING TECHNOLOGY INSTRUCTOR) to steady your nerves or to [...] Visit Medical Office Building Urology [address] [facility], [address] [place] [address] Lisa Hurtado PA [address] [place] [address] 03/22/2025 11:10 AM EST Office Visit [place] [facility] [address], [address] [place] [address] Lisa Hurtado, THELMA [address] [place] [address] documented as of this encounter [...] documented as of this encounter Care Teams Hand Decorator Relationship Specialty Start Date End Date Madiha Villarreal APRN [address] [place] [address] PCP - General 07/29/20 Idris Jones MD [address] [place] [address] First Call Provider Interventional Cardiology 04/16/22 documented as of this encounter
[2024-10-22 11:21] LABS: POC Glucose,Bedside 266 (70-110)
--- NOTE | 2024-10-22 11:34 | EXP.DC.SUM ---
General Admission date:: 10/21/24 Discharge date: 10/22/24 HPI HPI HPI: Stephanie Kulkarni is a 63-year-old female with medical significant for COPD on room air (2 L as needed), reported asthma, current tobacco type 2 diabetes, hypertension, GERD, HFpEF, A-fib on Xarelto, CAD with stents, anxiety/depression who presents with 2 weeks of progressive shortness of breath. Patient states during this time, she is also having increased productive cough for which she was evaluated in the ED about a week ago and was discharged with doxycycline and prednisone. Patient has been adherent to these medication, including her Advair, albuterol, DuoNebs every 6 hours but continued to have shortness of breath to the point she again returned to the ED. She denies chest pain, fever/chills, abdominal pain, urinary symptoms. Workup in the ED significant for WBC 13.9, VBG pH 7.26 PCO2 58.3, BNP 5910. CTA chest bilateral lower lobe concerning for pneumonia/infection versus secretions. She had restricted and was given DuoNeb, Solu-Medrol 0.25 mg, ceftriaxone, azithromycin, Lasix 40 mg. Patient continued to have increased work of breathing, restricted airway requiring 2 L nasal cannula. Case discussed with ED provider and decision made to admit patient for acute on chronic hypoxic respiratory failure secondary to COPD exacerbation. Hospital Course Hospital Course Hospital Course: Stephanie Kulkarni is a 63-year-old female with medical significant for COPD on room air (2 L as needed), reported asthma, current tobacco, type 2 diabetes, hypertension, GERD, HFpEF, A-fib on Xarelto, CAD with stents, anxiety/depression who presents with 2 weeks of progressive shortness of breath. Patient states during this time, she is also having increased yellow productive cough for which she was evaluated in the ED about a week ago and was discharged with doxycycline and prednisone. Admitted for failure of outpatient treatment. Feeling better morning. Evaluated by pulmonology. Able to wean to room air. Tolerated walk test without desaturations. Stable discharge home to complete antibiotic course. Follow-up with pulmonology. Will refer to endocrinology as an outpatient for further management of her diabetes. Problems addressed as follows: #Acute on chronic hypoxic, hypercapnic respiratory failure #Acute COPD exacerbation #Community-acquired pneumonia #Rhinovirus infection ? Presented with progressive shortness of breath, yellow productive sputum. Initial WBC 13.9, requiring 2 L. White count on morning of discharge improved to 12.1. Hemoglobin stable at 16. Weaned to room air by morning. Patient does have oxygen at home for intermittent use. Encouraged her to continue to use it as needed but no continuous use needed at this time. CTA chest bilateral lower lobe concerning for pneumonia/infection versus secretions. Respiratory panel positive for rhinovirus, possible superimposed bacterial infection. Lower concern for aspiration given rhinoviral infection. Transition to DuoNebs every 6 hours as needed. Evaluated by pulmonology, recommend transitioning to cefdinir based on previous cultures. Will complete 5 days of antibiotics total. Continue prednisone 40 mg daily to complete 5 days of therapy. Follow-up with pulmonology as an outpatient. Resume Advair. #HFpEF ? Does not seem to be volume overloaded, though BNP elevated 5910 more likely represents chronic heart failure. CBC is hemoconcentrated, and clinically looks dry on initial evaluation. ECHO December 2023 LVEF 50%, elevated RVSP 40 to 45 mmHg with normal RV function. Continue home Bumex 1 mg twice daily. #Type 2 diabetes ? Hemoglobin A1c improved at 8.5. states she has a pump at home (OmniPod and Dexcom) but does not know how to use it so it sits in her drawer. Open to referral to endocrinology. Continue Lantus, increased to 20 units daily. Continue home sliding scale insulin along with resuming her home 70/30 combo 28 units twice daily. Referred to endocrinology at [facility] for further management and optimization of her therapy as an outpatient. Morning glucose up after initiating steroids. Reports generally being sensitive to steroids. #Hypertension: # Atrial fibrillation, chronic # CAD with stents, PAD, CHITRA -Resume home metoprolol tartrate 300 mg twice daily, Xarelto 15 mg nightly, valsartan 40 mg daily. Continue home Plavix 75 mg daily, Lipitor 80 mg nightly #CKD stage IIIa ? Kidney function stable on morning labs with BUN 55, creatinine 1.7. #Anxiety/depression: Continue home Klonopin 0.5 mg nightly as needed #Current tobacco smoker ? Counseled, not ready for cessation. Nicotine patch as needed during admission Patient had a prior history of right-sided breast cancer status post resection and radiation. The noted CT findings in the right upper lobe likely from prior radiation fibrosis. Total time spent on discharge 37 minutes in counseling, documentation, chart review, and direct care with patient. Exam Data for Last 24 hours Vital signs and Labs for Last 24 Hours: Temp Pulse Resp BP Pulse Ox O2 Del Method O2 Flow Rate 97.7 F 121 H 22 167/96 H 98 Nasal Cannula 2 10/22/24 08:00 10/22/24 08:00 10/22/24 08:00 10/22/24 08:00 10/22/24 08:00 10/22/24 11:00 10/22/24 11:00 Laboratory Results - last 24 hr 10/21/24 14:40: WBC 13.9 H, RBC 5.55 H, Hgb 16.5 H, Hct 50.8 H, MCV 91.5, MCH 29.7, MCHC 32.5, RDW 14.9, Plt Count 284, MPV 9.9, Neut % (Auto) 61.6, Lymph % (Auto) 28.3, [place] % (Auto) 7.1, Eos % (Auto) 1.4, Baso % (Auto) 0.4, Neut # (Auto) 8.5 H, Lymph # (Auto) 3.9, [place] # (Auto) 1.0, Eos # (Auto) 0.2, Baso # (Auto) 0.1, ESR 7, Sodium 135 L, Potassium 3.8, Chloride 102, Carbon Dioxide 24, Anion Gap 12.8, BUN 47 H, Creatinine 1.50 H, Estimated Creat Clear 56, Estimated GFR 35 L, Est GFR ( Amer) 42 L, Glucose 333 H, Calcium 9.5, Magnesium 2.0, Total Bilirubin 0.9, AST 28, ALT 32, Alkaline Phosphatase 126, Troponin I < 0.01, C-Reactive Protein 7.2 H, NT-Pro-B Natriuret Pep 5910 H, Total Protein 6.7, Albumin 4.2, Globulin 2.5, Albumin/Globulin Ratio 1.7, Lipase 99 10/21/24 14:45: VBG pH 7.26 L, VBG pCO2 58.3 H, VBG pO2 45.2 H, VBG HCO3 25.6, VBG Total CO2 27.4 H, VBG O2 Saturation 74.7 H, VBG Base Excess -1.4, VBG Lactic Acid 2.1 H 10/21/24 14:56: Lactate 1.9 10/21/24 18:00: Troponin I < 0.01 10/21/24 18:15: Urine Color Yellow, Urine Appearance Clear, Urine pH 6.0, Ur Specific Alpha <= 1.005, Urine Protein Negative, Urine Glucose (UA) 3+, Urine Ketones Negative, Urine Blood Negative, Urine Nitrate Negative, Urine Bilirubin Negative, Urine Urobilinogen 0.2, Ur Leukocyte Esterase Negative, Urine RBC None, Urine WBC Occasional, Ur Squamous Epith Cells Occasional, Urine Bacteria None 10/21/24 20:11: Chlamy pneumoniae PCR Not detected, Adenovirus (PCR) Not detected, B. pertussis DNA (PCR) Not detected, Coronavirus OC43 (PCR) Not detected, Coronavirus HKU1 (PCR) Not detected, Coronavirus 229E (PCR) Not detected, SARS-CoV-2 (PCR) Not detected, Coronavirus NL63 (PCR) Not detected, Human Metapneumovir PCR Not detected, Influenza A (H1) PCR Not detected, Influ A (H1N1/09) PCR Not detected, Influenza A (H3) PCR Not detected, Influenza Type A (PCR) Not detected, Influenza Type B (PCR) Not detected, M. pneumoniae (PCR) Not detected, Parainfluenza 1 (PCR) Not detected, Parainfluenza 2 (PCR) Not detected, Parainfluenza 3 (PCR) Not detected, Parainfluenza 4 (PCR) Not detected, RSV (PCR) Not detected, Entero/Rhino (PCR) Detected A 10/21/24 20:54: Troponin I < 0.01 10/21/24 21:03: POC Glucose 254 H 10/22/24 02:22: MRSA (PCR) Negative 10/22/24 05:06: POC Glucose 380 H* 10/22/24 05:16: Free T4 1.27 10/22/24 05:19: WBC 12.1 H, RBC 5.35, Hgb 16.0, Hct 48.7 H, MCV 91.0, MCH 29.9, MCHC 32.9, RDW 15.0, Plt Count 243, MPV 10.2, Neut % (Auto) 86.0 H, Lymph % (Auto) 10.4, [place] % (Auto) 2.2, Eos % (Auto) 0.0 L, Baso % (Auto) 0.2, Neut # (Auto) 10.4 H, Lymph # (Auto) 1.3, [place] # (Auto) 0.3, Eos # (Auto) 0.0, Baso # (Auto) 0.0, Sodium 133 L, Potassium 4.5, Chloride 102, Carbon Dioxide 21 L, Anion Gap 14.5, BUN 55 H, Creatinine 1.70 H, Estimated Creat Clear 50, Estimated GFR 30 L, Est GFR ( Amer) 36 L, Glucose 412 H* D, Hemoglobin A1c 8.5 H, Calcium 9.3, Magnesium 2.6 H D, Total Bilirubin 0.4, AST 25, ALT 32, Alkaline Phosphatase 124, Total Protein 6.7, Albumin 4.0, Globulin 2.7, Albumin/Globulin Ratio 1.5, TSH 0.14 L 10/22/24 09:44: POC Glucose 266 H I & O for Last 24 hours: Intake & Output 10/19/24 10/20/24 10/21/24 10/22/24 23:59 23:59 23:59 23:59 Intake Total 840 / 840 Output Total 820 / 820 350 / 350 Balance -820 / -460 490 / 490 Weight 93.395 kg 96.388 kg Microbiology Reports for the Last 24 Hours: Microbiology 10/22/24 06:30 Sputum - Expectorated Sputum Gram Stain - Final Constitutional Constitutional: no acute distress, obese, chronically ill appearing and cooperative *Routine HEENT Exam Head: Present normocephalic Eye: Present EOMI and PERRL ENT: Present mucous membranes moist *Routine Neck Exam Neck: Present supple; Absent lymphadenopathy *Routine Respiratory Exam Respiratory: Present prolonged expiratory phase and wheezes; Absent accessory muscle use, rhonchi or crackles *Routine Cardiovascular Exam Cardiovascular: Present RRR *Routine Abdominal Exam Abdominal: Present soft and normoactive bowel sounds; Absent tenderness *Routine Rectal Exam Patient deferred: visual exam *Routine Exam Patient deferred: external exam *Routine Extremities Exam Extremities: Present edema (Right upper extremity, chronic); Absent cyanosis or clubbing *Routine Skin Exam Skin: Present intact and warm; Absent rash *Routine Neurological Exam Neurological: Present alert, oriented X3 and moving all extremities; Absent altered mental status Results Data Completed and Pending Labs on day of discharge: Labs from last 24 hours 10/22/24 10/22/24 10/22/24 09:44 05:19 05:16 WBC 12.1 H RBC 5.35 Hgb 16.0 Hct 48.7 H MCV 91.0 MCH 29.9 MCHC 32.9 RDW 15.0 Plt Count 243 MPV 10.2 Neut % (Auto) 86.0 H Lymph % (Auto) 10.4 [place] % (Auto) 2.2 Eos % (Auto) 0.0 L Baso % (Auto) 0.2 Neut # (Auto) 10.4 H Lymph # (Auto) 1.3 [place] # (Auto) 0.3 Eos # (Auto) 0.0 Baso # (Auto) 0.0 ESR VBG pH VBG pCO2 VBG pO2 VBG HCO3 VBG Total CO2 VBG O2 Saturation VBG Base Excess VBG Lactic Acid Sodium 133 L Potassium 4.5 Chloride 102 Carbon Dioxide 21 L Anion Gap 14.5 BUN 55 H Creatinine 1.70 H Estimated Creat Clear 50 Estimated GFR 30 L Est GFR ( Amer) 36 L Glucose 412 H* D POC Glucose 266 H Hemoglobin A1c 8.5 H Lactate Calcium 9.3 Magnesium 2.6 H D Total Bilirubin 0.4 AST 25 ALT 32 Alkaline Phosphatase 124 Troponin I C-Reactive Protein NT-Pro-B Natriuret Pep Total Protein 6.7 Albumin 4.0 Globulin 2.7 Albumin/Globulin Ratio 1.5 Lipase TSH 0.14 L Free T4 1.27 Urine Color Urine Appearance Urine pH Ur Specific Alpha Urine Protein Urine Glucose (UA) Urine Ketones Urine Blood Urine Nitrate Urine Bilirubin Urine Urobilinogen Ur Leukocyte Esterase Urine RBC Urine WBC Ur Squamous Epith Cells Urine Bacteria Chlamy pneumoniae PCR Adenovirus (PCR) B. pertussis DNA (PCR) Coronavirus OC43 (PCR) Coronavirus HKU1 (PCR) Coronavirus 229E (PCR) SARS-CoV-2 (PCR) Coronavirus NL63 (PCR) Human Metapneumovir PCR Influenza A (H1) PCR Influ A (H1N1/09) PCR Influenza A (H3) PCR Influenza Type A (PCR) Influenza Type B (PCR) M. pneumoniae (PCR) Parainfluenza 1 (PCR) Parainfluenza 2 (PCR) Parainfluenza 3 (PCR) Parainfluenza 4 (PCR) RSV (PCR) Entero/Rhino (PCR) MRSA (PCR) 08/07/25 08/07/25 08/06/25 05:06 02:22 21:03 WBC RBC Hgb Hct MCV MCH MCHC RDW Plt Count MPV Neut % (Auto) Lymph % (Auto) [place] % (Auto) Eos % (Auto) Baso % (Auto) Neut # (Auto) Lymph # (Auto) [place] # (Auto) Eos # (Auto) Baso # (Auto) ESR VBG pH VBG pCO2 VBG pO2 VBG HCO3 VBG Total CO2 VBG O2 Saturation VBG Base Excess VBG Lactic Acid Sodium Potassium Chloride Carbon Dioxide Anion Gap BUN Creatinine Estimated Creat Clear Estimated GFR Est GFR ( Amer) Glucose POC Glucose 380 H* 254 H Hemoglobin A1c Lactate Calcium Magnesium Total Bilirubin AST ALT Alkaline Phosphatase Troponin I C-Reactive Protein NT-Pro-B Natriuret Pep Total Protein Albumin Globulin Albumin/Globulin Ratio Lipase TSH Free T4 Urine Color Urine Appearance Urine pH Ur Specific Alpha Urine Protein Urine Glucose (UA) Urine Ketones Urine Blood Urine Nitrate Urine Bilirubin Urine Urobilinogen Ur Leukocyte Esterase Urine RBC Urine WBC Ur Squamous Epith Cells Urine Bacteria Chlamy pneumoniae PCR Adenovirus (PCR) B. pertussis DNA (PCR) Coronavirus OC43 (PCR) Coronavirus HKU1 (PCR) Coronavirus 229E (PCR) SARS-CoV-2 (PCR) Coronavirus NL63 (PCR) Human Metapneumovir PCR Influenza A (H1) PCR Influ A (H1N1/09) PCR Influenza A (H3) PCR Influenza Type A (PCR) Influenza Type B (PCR) M. pneumoniae (PCR) Parainfluenza 1 (PCR) Parainfluenza 2 (PCR) Parainfluenza 3 (PCR) Parainfluenza 4 (PCR) RSV (PCR) Entero/Rhino (PCR) MRSA (PCR) Negative 10/21/24 10/21/24 10/21/24 20:54 20:11 18:15 WBC RBC Hgb Hct MCV MCH MCHC RDW Plt Count MPV Neut % (Auto) Lymph % (Auto) [place] % (Auto) Eos % (Auto) Baso % (Auto) Neut # (Auto) Lymph # (Auto) [place] # (Auto) Eos # (Auto) Baso # (Auto) ESR VBG pH VBG pCO2 VBG pO2 VBG HCO3 VBG Total CO2 VBG O2 Saturation VBG Base Excess VBG Lactic Acid Sodium Potassium Chloride Carbon Dioxide Anion Gap BUN Creatinine Estimated Creat Clear Estimated GFR Est GFR ( Amer) Glucose POC Glucose Hemoglobin A1c Lactate Calcium Magnesium Total Bilirubin AST ALT Alkaline Phosphatase Troponin I < 0.01 C-Reactive Protein NT-Pro-B Natriuret Pep Total Protein Albumin Globulin Albumin/Globulin Ratio Lipase TSH Free T4 Urine Color Yellow Urine Appearance Clear Urine pH 6.0 Ur Specific Alpha <= 1.005 Urine Protein Negative Urine Glucose (UA) 3+ Urine Ketones Negative Urine Blood Negative Urine Nitrate Negative Urine Bilirubin Negative Urine Urobilinogen 0.2 Ur Leukocyte Esterase Negative Urine RBC None Urine WBC Occasional Ur Squamous Epith Cells Occasional Urine Bacteria None Chlamy pneumoniae PCR Not detected Adenovirus (PCR) Not detected B. pertussis DNA (PCR) Not detected Coronavirus OC43 (PCR) Not detected Coronavirus HKU1 (PCR) Not detected Coronavirus 229E (PCR) Not detected SARS-CoV-2 (PCR) Not detected Coronavirus NL63 (PCR) Not detected Human Metapneumovir PCR Not detected Influenza A (H1) PCR Not detected Influ A (H1N1/09) PCR Not detected Influenza A (H3) PCR Not detected Influenza Type A (PCR) Not detected Influenza Type B (PCR) Not detected M. pneumoniae (PCR) Not detected Parainfluenza 1 (PCR) Not detected Parainfluenza 2 (PCR) Not detected Parainfluenza 3 (PCR) Not detected Parainfluenza 4 (PCR) Not detected RSV (PCR) Not detected Entero/Rhino (PCR) Detected A MRSA (PCR) 10/21/24 10/21/24 10/21/24 18:00 14:56 14:45 WBC RBC Hgb Hct MCV MCH MCHC RDW Plt Count MPV Neut % (Auto) Lymph % (Auto) [place] % (Auto) Eos % (Auto) Baso % (Auto) Neut # (Auto) Lymph # (Auto) [place] # (Auto) Eos # (Auto) Baso # (Auto) ESR VBG pH 7.26 L VBG pCO2 58.3 H VBG pO2 45.2 H VBG HCO3 25.6 VBG Total CO2 27.4 H VBG O2 Saturation 74.7 H VBG Base Excess -1.4 VBG Lactic Acid 2.1 H Sodium Potassium Chloride Carbon Dioxide Anion Gap BUN Creatinine Estimated Creat Clear Estimated GFR Est GFR ( Amer) Glucose POC Glucose Hemoglobin A1c Lactate 1.9 Calcium Magnesium Total Bilirubin AST ALT Alkaline Phosphatase Troponin I < 0.01 C-Reactive Protein NT-Pro-B Natriuret Pep Total Protein Albumin Globulin Albumin/Globulin Ratio Lipase TSH Free T4 Urine Color Urine Appearance Urine pH Ur Specific Alpha Urine Protein Urine Glucose (UA) Urine Ketones Urine Blood Urine Nitrate Urine Bilirubin Urine Urobilinogen Ur Leukocyte Esterase Urine RBC Urine WBC Ur Squamous Epith Cells Urine Bacteria Chlamy pneumoniae PCR Adenovirus (PCR) B. pertussis DNA (PCR) Coronavirus OC43 (PCR) Coronavirus HKU1 (PCR) Coronavirus 229E (PCR) SARS-CoV-2 (PCR) Coronavirus NL63 (PCR) Human Metapneumovir PCR Influenza A (H1) PCR Influ A (H1N1/09) PCR Influenza A (H3) PCR Influenza Type A (PCR) Influenza Type B (PCR) M. pneumoniae (PCR) Parainfluenza 1 (PCR) Parainfluenza 2 (PCR) Parainfluenza 3 (PCR) Parainfluenza 4 (PCR) RSV (PCR) Entero/Rhino (PCR) MRSA (PCR) 10/21/24 14:40 WBC 13.9 H RBC 5.55 H Hgb 16.5 H Hct 50.8 H MCV 91.5 MCH 29.7 MCHC 32.5 RDW 14.9 Plt Count 284 MPV 9.9 Neut % (Auto) 61.6 Lymph % (Auto) 28.3 [place] % (Auto) 7.1 Eos % (Auto) 1.4 Baso % (Auto) 0.4 Neut # (Auto) 8.5 H Lymph # (Auto) 3.9 [place] # (Auto) 1.0 Eos # (Auto) 0.2 Baso # (Auto) 0.1 ESR 7 VBG pH VBG pCO2 VBG pO2 VBG HCO3 VBG Total CO2 VBG O2 Saturation VBG Base Excess VBG Lactic Acid Sodium 135 L Potassium 3.8 Chloride 102 Carbon Dioxide 24 Anion Gap 12.8 BUN 47 H Creatinine 1.50 H Estimated Creat Clear 56 Estimated GFR 35 L Est GFR ( Amer) 42 L Glucose 333 H POC Glucose Hemoglobin A1c Lactate Calcium 9.5 Magnesium 2.0 Total Bilirubin 0.9 AST 28 ALT 32 Alkaline Phosphatase 126 Troponin I < 0.01 C-Reactive Protein 7.2 H NT-Pro-B Natriuret Pep 5910 H Total Protein 6.7 Albumin 4.2 Globulin 2.5 Albumin/Globulin Ratio 1.7 Lipase 99 TSH Free T4 Urine Color Urine Appearance Urine pH Ur Specific Alpha Urine Protein Urine Glucose (UA) Urine Ketones Urine Blood Urine Nitrate Urine Bilirubin Urine Urobilinogen Ur Leukocyte Esterase Urine RBC Urine WBC Ur Squamous Epith Cells Urine Bacteria Chlamy pneumoniae PCR Adenovirus (PCR) B. pertussis DNA (PCR) Coronavirus OC43 (PCR) Coronavirus HKU1 (PCR) Coronavirus 229E (PCR) SARS-CoV-2 (PCR) Coronavirus NL63 (PCR) Human Metapneumovir PCR Influenza A (H1) PCR Influ A (H1N1/09) PCR Influenza A (H3) PCR Influenza Type A (PCR) Influenza Type B (PCR) M. pneumoniae (PCR) Parainfluenza 1 (PCR) Parainfluenza 2 (PCR) Parainfluenza 3 (PCR) Parainfluenza 4 (PCR) RSV (PCR) Entero/Rhino (PCR) MRSA (PCR) DS: Diagnosis Discharge Diagnosis (1) Acute on chronic respiratory failure with hypoxia and hypercapnia: Status: Acute Code(s): J96.21 - Acute and chronic respiratory failure with hypoxia; J96.22 - Acute and chronic respiratory failure with hypercapnia (2) Rhinovirus infection: Status: Acute Code(s): B34.8 - Other viral infections of unspecified site (3) Acute exacerbation of chronic obstructive pulmonary disease: Status: Acute Code(s): J44.1 - Chronic obstructive pulmonary disease with (acute) exacerbation Meds Home Medications and Allergies Home Medications ?Medication ?Instructions ?Recorded ?Confirmed ?Type rivaroxaban 15 mg tablet (Xarelto) 15 mg PO QPMWITHMEAL 12/17/23 10/22/24 History insulin lispro 100 unit/mL 1 sliding scale dose SQ 05/13/24 10/21/24 Rx subcutaneous cartridge USEASDIRECTD #15 mL bumetanide 1 mg tablet 1 mg PO BID #180 tabs 05/17/24 10/21/24 Rx blood-glucose meter (Accu-Chek #1 ea 07/08/24 10/21/24 Rx Guide Glucose Meter) lancets 28 gauge (FreeStyle #100 ea 07/08/24 10/21/24 Rx Lancets) pen needle, diabetic 32 gauge x #100 ea 08/26/24 10/21/24 Rx 5/32 lancets (Accu-Chek Softclix #200 ea 10/07/24 10/21/24 Rx Lancets) atorvastatin 80 mg tablet 80 mg PO HS 10/21/24 10/21/24 History clonazepam 0.5 mg tablet 0.5 mg PO DAILYP PRN Agitation 10/21/24 10/22/24 History clopidogrel 75 mg tablet 75 mg PO DAILY 10/21/24 10/21/24 History cyclobenzaprine 10 mg tablet 10 mg PO Q8HP PRN Muscle Spasms 10/21/24 10/21/24 History dapagliflozin propanediol 10 mg 10 mg PO DAILY 10/21/24 10/21/24 History tablet (Farxiga) pantoprazole 40 mg tablet,delayed 40 mg PO DAILY 10/21/24 10/21/24 History release spironolactone 25 mg tablet 25 mg PO DAILY 10/21/24 10/21/24 History valsartan 40 mg tablet 40 mg PO DAILY 10/21/24 10/21/24 History cefdinir 300 mg capsule 300 mg PO BID #6 caps 10/22/24 Rx fluticasone 250 mcg-salmeterol 50 1 inh inhalation BID #60 ea 10/22/24 Rx mcg/dose blistr powdr for inhalation (Advair Diskus) insulin NPH-regular 70-30 U-100 28 unit SQ BID 10/22/24 10/22/24 History insulin 100 unit/mL subcutaneous pen (Humulin 70/30 U-100 KwikPen) insulin glargine 100 unit/mL (3 20 unit (0.2 mL) SQ HS 30 days #0 10/22/24 10/22/24 Rx mL) subcutaneous pen (Lantus mL Solostar U-100 Insulin) ipratropium 0.5 mg-albuterol 3 mg 3 ml inhalation Q6HP PRN shortness 10/22/24 Rx (2.5 mg base)/3 mL nebulization of breath or wheezing 30 days #180 soln mL metoprolol tartrate 100 mg tablet 300 mg PO BID 10/22/24 10/22/24 History prednisone 20 mg tablet 40 mg (2 x 20 mg) PO DAILY 3 days 10/22/24 Rx #6 tabs New Prescriptions to Start Prescriptions: cefdinir Gabe Brooks fluticasone propion-salmeterol [Advair Diskus] Gabe Brooks ipratropium-albuterol Gabe Brooks prednisone Gabe Brooks Allergies Allergy/AdvReac Type Severity Reaction Status Date / Time oxycodone (From PERCOCET) Allergy Unknown Unknown Verified 07/14/24 15:36 allergy reaction isosorbide (From Imdur) AdvReac Severe Headache Verified 07/14/24 15:36 Discharge Plan Disposition Patient Disposition: Home, Self-Care Condition: Fair Follow up Plan Follow up with: Jose Manuel Mejia MD [Physician, Pulmonology] - 11/04/24 11:20 am Guille Jean MD [Staff Physician, Endocrinology] - 11/05/24 10:00 am Referral Note: 2-4 weeks to establish care for diabetes management, pump education Prescriptions/Medication Reconciliation: New fluticasone propion-salmeterol [Advair Diskus] 250-50 mcg/dose Blister With Device 1 inh inhalation BID Qty: 60 0RF prednisone 20 mg Tablet 40 mg PO DAILY 3 Days Qty: 6 0RF cefdinir 300 mg capsule 300 mg PO BID Qty: 6 0RF Rx Instructions: start morning of 10/23/24 ipratropium-albuterol 0.5 mg-3 mg(2.5 mg base)/3 mL Solution For Nebulization 3 ml inhalation Q6HP PRN (Reason: shortness of breath or wheezing) 30 Days Qty: 180 0RF Continued insulin lispro 100 unit/mL cartridge 1 sliding scale dose SQ USEASDIRECTD Qty: 15 3RF Rx Instructions: Max 80 units daily bumetanide 1 mg tablet 1 mg PO BID Qty: 180 2RF (DME) lancets [FreeStyle Lancets] 28 gauge misc See Rx Instructions .Route Qty: 100 1RF Rx Instructions: Three times daily or As directed (DME) blood-glucose meter [Accu-Chek Guide Glucose Meter] Misc See Rx Instructions .Route Qty: 1 0RF Rx Instructions: Test sugar three times daily or As directed (DME) pen needle, diabetic 32 gauge x 5/32 needle See Rx Instructions .ROUTE .COMPLEX Qty: 100 4RF Dose Instruction: USE THREE TIMES DAILY OR DIRECTED with insulin injections Rx Instructions: USE THREE TIMES DAILY OR DIRECTED with insulin injections (DME) lancets [Accu-Chek Softclix Lancets] Misc See Rx Instructions .ROUTE .COMPLEX Qty: 200 6RF Dose Instruction: USE DIRECTED THREE TIMES DAILY OR DIRECTED Rx Instructions: USE DIRECTED THREE TIMES DAILY OR DIRECTED cyclobenzaprine 10 mg tablet 10 mg PO Q8HP PRN (Reason: Muscle Spasms) Rx Instructions: TAKE ONE TABLET BY MOUTH EVERY 8 HOURS MAY CAUSE DROWSINESS atorvastatin 80 mg tablet 80 mg PO HS clonazepam 0.5 mg tablet 0.5 mg PO DAILYP PRN (Reason: Agitation) clopidogrel 75 mg tablet 75 mg PO DAILY spironolactone 25 mg tablet 25 mg PO DAILY pantoprazole 40 mg tablet,delayed release (DR/EC) 40 mg PO DAILY valsartan 40 mg tablet 40 mg PO DAILY dapagliflozin propanediol [Farxiga] 10 mg tablet 10 mg PO DAILY Humulin 70/30 U-100 KwikPen 100 unit/mL (70-30) insulin pen 28 unit SQ BID Patient Comments: INJECT 28 UNITS SUBCUTANEOUSLY TWICE DAILY FOR diabetes metoprolol tartrate 100 mg tablet 300 mg PO BID Xarelto 15 mg tablet 15 mg PO QPMWITHMEAL Patient Comments: TAKE ONE TABLET BY MOUTH EVERY DAY Changed insulin glargine [Lantus Solostar U-100 Insulin] 100 unit/mL (3 mL) insulin pen 20 unit SQ HS 30 Days Qty: 0 0RF Patient Comments: INJECT 10 UNITS SUBCUTANEOUSLY EVERY DAY AT BEDTIME Problem Reconciliation Problems Reviewed?: Yes Patient Discharge Instructions ACTIVITY: Continue current activity DIET: continue same diet Patient Instructions: DI for Chronic Obstructive Pulmonary Disease, DI for Pneumonia -- Adult, DI for Respiratory Failure, Stop Light Pneumonia, Stop Light COPD, Stop Light Heart Failure, Stop Light Infection Print Language: Nepalese Providers Primary Care Provider: Provider,Referral Admit Provider: Eric Hopkins Attending Provider: Eric Hopkins
--- NOTE | 2024-10-22 12:05 | DIET.NUTRFU ---
saw patient today went over diabetc diet recommendations. She is tring to watch her sugar intake at home. Her A1 improved from 10.4% to 8.5 % in 1 year. Her dexcom is not working, has follow-up with endocranologist to help with medications and testing. Provide diabetic handout and contact information for any follow-up
[2024-10-22 12:19] LABS: POC Glucose,Bedside 396 (70-110)
--- NOTE | 2024-10-26 10:52 | SW/DCPLANNER ---
Spoke with patient's daughter on the phone. Patient's daughter stated that she is doing good. Patient's daughter stated that they are aware of her upcoming appointment. Patient's daughter stated that she was able to get her mom's new medicine picked up the day she was discharged from the hospital. Patient's daughter stated that they have no concerns or questions at this time. Nigel Sesay
== END 2024-10-22 14:55 | disposition home or self-care (01) ==
LOC: ER 19:38 → 2ND 10-22 06:04
PROVIDERS: Nurse Practitioner; Admitting Provider Student in an Organized Health Care Education/Training Program; Emergency Provider Emergency Medicine; Visit Provider Student in an Organized Health Care Education/Training Program
DX: J96.21 Acute and chronic respiratory failure with hypoxia (principal); J96.22 Acute and chronic respiratory failure with hypercapnia; J18.9 Pneumonia, unspecified organism; I13.0 Hypertensive heart and chronic kidney disease with heart failure and stage 1 through stage 4 chronic kidney disease, or unspecified chronic kidney disease; E11.51 Type 2 diabetes mellitus with diabetic peripheral angiopathy without gangrene; E11.22 Type 2 diabetes mellitus with diabetic chronic kidney disease; J44.1 Chronic obstructive pulmonary disease with (acute) exacerbation; I48.20 Chronic atrial fibrillation, unspecified; B34.8 Other viral infections of unspecified site; I50.31 Acute diastolic (congestive) heart failure; I25.10 Atherosclerotic heart disease of native coronary artery without angina pectoris; I70.1 Atherosclerosis of renal artery; N18.31 Chronic kidney disease, stage 3a; F32.A Depression, unspecified; F41.9 Anxiety disorder, unspecified; I42.9 Cardiomyopathy, unspecified; K21.9 Gastro-esophageal reflux disease without esophagitis; G43.909 Migraine, unspecified, not intractable, without status migrainosus; G47.33 Obstructive sleep apnea (adult) (pediatric); F17.210 Nicotine dependence, cigarettes, uncomplicated; E66.9 Obesity, unspecified; Z68.33 Body mass index [BMI] 33.0-33.9, adult; Z88.6 Allergy status to analgesic agent; Z88.8 Allergy status to other drugs, medicaments and biological substances; Z95.5 Presence of coronary angioplasty implant and graft; Z96.41 Presence of insulin pump (external) (internal); Z83.6 Family history of other diseases of the respiratory system; Z86.16 Personal history of COVID-19; Z98.890 Other specified postprocedural states; Z85.3 Personal history of malignant neoplasm of breast; Z79.4 Long term (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; Z79.01 Long term (current) use of anticoagulants; Z79.02 Long term (current) use of antithrombotics/antiplatelets; Z79.899 Other long term (current) drug therapy; Z79.82 Long term (current) use of aspirin; Z79.52 Long term (current) use of systemic steroids; N28.89 Other specified disorders of kidney and ureter
CPT/HCPCS: 0223U; 36415; 71275; 80053; 81001; 82803; 82962; 83036; 83605; 83690; 83735; 83880; 84439; 84443; 84484; 85025; 85651; 86140; 87040; 87070; 87081; 87205; 87633; 87641; 93005; 93306; 94618; 94640; 94760; 94761; 96365; 96375; 97162; 97165; 99285; G0378; J0456; J0696; J1938; J2919; J3475; J7050; Q9967